=== PATIENT | female | born 1980 | race Caucasian/White ===

== ENCOUNTER → 2016-09-05 | Outpatient (REF) | payer MEDICAID, OTHER | LOC: M SFHCPLAZ 16:01 | PROVIDERS: ATTEND Family Medicine | DX: N39.3 Stress incontinence (female) (male) (principal) ==

== ENCOUNTER → 2016-10-04 | Outpatient (REF) | payer MEDICAID | LOC: M SFHCPLAZ 08:00 | PROVIDERS: ATTEND Family Medicine | DX: Z01.419 Encounter for gynecological examination (general) (routine) without abnormal findings (principal); Z11.51 Encounter for screening for human papillomavirus (HPV) ==

== ENCOUNTER → 2017-03-14 | Outpatient (CLI) | payer MEDICAID, OTHER ==
--- NOTE | 2017-03-14 11:35 | REP ---
Right knee series: Five views. History: Acute pain right knee. Findings: Five views of the right knee demonstrate normal bones, joints, and soft tissues. No fracture or subluxation is seen. Impression: Negative views of the right knee. Signed by Obed Langston MD 03/14/2017 02:44 P
== END ==
LOC: M LRY 10:50
PROVIDERS: ATTEND Nurse Practitioner Family
DX: M25.561 Pain in right knee (principal)

== ENCOUNTER → 2017-05-10 | Outpatient (CLI) | payer OTHER, MEDICAID ==
--- NOTE | 2017-05-27 00:39 | ECWPNPC ---
PATIENT NAME: MIKE LAI : 1980 GENDER: FEMALE VISIT DATE: 05/10/2017 DISCHARGE DATE: 05/10/17 1027 VISIT LOCKED DATE TIME: PHYSICIAN: CATHY QUIROGA RESOURCE: CATHY QUIROGA REASON FOR APPOINTMENT 1. RAUL KNEE PAIN HISTORY OF PRESENT ILLNESS FALL RISK SCREENING: SCREENING :NO FALLS IN THE PAST YEAR 37 YEAR OLD FEMALE PATIENT WITH BILATERAL KNEE PAIN AND LOW BACK PAIN. PATIENT DESCRIBES THE PAIN ACHING AND THROBBING WITH A PAIN SCORE OF 6/10. PATIENT REPORTS THE PAIN STARTED IN 1995 WITH NO TRAUMA AND STATES THAT OVER THE YEARS IT HAS GOTTEN PROGRESSIVELY WORSE. PATIENT HAS TRIED PHYSICAL THERAPY AND REPORTS IT ONLY AIDING IN RELIEF FOR A SHORT PERIOD OF TIME. PATIENT STATES THAT WALKING INCREASES THE PAIN THE MOST IN THE KNEES. PATIENT STATES THAT SHE HAS A LOT OF PAIN AT NIGHT AND MAKES IT DIFFICULT FOR HER TO SLEEP DUE TO THIS PAIN. PATIENT HAS SEEN THE ORTHOPEDIC GROUP HERE WHO STATED THAT SHE IS NOT A CANDIDATE FOR SURGERY. PATIENT HAS ALSO SEEN A PAINTER AND DECORATOR APPRENTICE WHO THEN SENT HER TO A GASTROINTESTINAL DOCTOR. PATIENT HAS RECEIVED INJECTIONS IN THE KNEES BEFORE BUT ONLY HAD ROUGHLY 2 WEEKS OF RELIEF. PATIENT DENIES UNEXPLAINABLE WEIGHT LOSS, FEVER, CHILLS, NEW CHANGES ON HER URINARY OR BOWEL CONTROL. 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 2 SON(S) - HEALTHY. SOCIAL HISTORY GENERAL: TOBACCO USE ARE YOU A:FORMER SMOKER HOW LONG HAS IT BEEN SINCE YOU LAST SMOKED?1-5 YEARS SMOKING CESSATION INFORMATION GIVEN05/10/2017 LUNG CANCER SCREENING SMOKING STATUS:FORMER SMOKER BMI CARE GOAL FOLLOW-UP ABOVE NORMAL BMI FOLLOW-UPDIETARY NEEDS EDUCATION ALCOHOL SCREENING POINTS1 INTERPRETATIONNEGATIVE RECREATIONAL DRUG USE DRUG USE?NO PATIENT DENIES ABUSE OR MISSUSED OF ANY MEDICATION. PATIENT DENIES USE OF ANY ILLEGAL SUBSTANCE INCLUDING MARIJUANA OR COCAINE. CAFFEINE CAFFEINE USE?YES HOW OFTEN AND HOW MUCH? 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 MARITAL STATUS: SINGLE. TAOIST [id number] NONE LANGUAGE LANGUAGES SPOKEN:SAMOAN EDUCATION LEVEL OF EDUCATION:NOT FINISHED COLLEGE LEARNING BARRIERS / SPECIAL NEEDS CHANGE FROM LAST VISIT?NO BARRIERS TO LEARNING?NO HEARING IMPAIRED?NO VISION IMPAIRED?YES :CORRECTIVE LENSES COGNITIVELY IMPAIRED?NO READINESS TO LEARN?YES LEARNING PREFERENCES?NO LEARNING CAPABILITIES PRESENT?YES EMOTIONAL BARRIERS?NO SPECIAL DEVICES?NO AIRLINE MANAGER NEEDED?NO PAIN CLINIC PFS, CLERGY, PUBLIC HEALTH REFERRALS HAS THE PATIENT BEEN EDUCATED REGARDING HIS/HER PLAN OF CARE?YES HAS THE PATIENT BEEN EDUCATED REGARDING PAIN, THE RISK FOR PAIN, THE IMPORTANCE OF EFFECTIVE PAIN MANAGEMENT, AND THE PAIN ASSESSMENT PROCESS?YES ADVANCE DIRECTIVES HEALTH CARE PROXY?NO DO YOU HAVE A DNR?NO LIVING WILL?NO POWER OF GOVERNOR ASSEMBLER HYDRAULIC?NO HOSPITALIZATION/MAJOR DIAGNOSTIC PROCEDURE RELATED TO SURGERY REVIEW OF SYSTEMS REVIEWED BY: PROVIDER: CATHY QUIROGA MD . CONSTITUTIONAL: ANY CHANGE IN YOUR MEDICAL CONDITION? YES, PT REPORTS SHE RECENTLY SAW A PAINTER AND DECORATOR APPRENTICE IN [place], DR HUNT CLAU BY ORTHO DR ONIEL RODRIGUEZ BECAUSE HE COULDN'T FIND ANYTHING SURGICAL. PT HAD BLOODWORK DONE AND TESTED POSITIVE FOR HEP C. A MORE EXTENSIVE WORKUP WAS DONE SHOWING NEGATIVE HEP C. PT WAS REFERED TO GASTRO DR. MARICEL ALVAREZ, APPT SCHEDULED FOR 06/07/17 . CHILLS NO . FEVER NO . INFECTION: DO YOU HAVE NEW INFECTIONS? NO . DO YOU HAVE HISTORY OF MRSA? NO . MUSCULOSKELETAL: ANY NEW PATTERNS OF PAIN OR NUMBNESS? YES, BILAT KNEE PAINRADIATING DOWN BOTH LEGS. LATELY PT REPORTS GENERALIZED BACK PAIN WHICH STARTED 2 WEEKS AGO . SYTEMIC LUPUS NO . GASTROENTEROLOGY: ANY NEW CHANGE IN BOWEL CONTROL? NO . BARRETTS ESOPHAGUS NO . CIRRHOSIS NO . HEPATITIS NO . LIVER FAILURE NO . ACID REFLUX NO . UNEXPLAINED WEIGHT LOSS NO . GENITOURINARY: ANY NEW CHANGE IN BLADDER CONTROL? NO . IS THERE A CHANCE YOU COULD BE ? NO . HEMATOLOGY/LYMPH: DO YOU TAKE ANY BLOOD THINNERS? (FOR EXAMPLE- COUMADIN, PLAVIX, AGGRENOX, PLATEL, PRADAXA, OR XARELTO) NO . WHEN WAS YOUR LAST DOSE? DATE: TIME: . LOW PLATELET COUNT NO . SICKLE CELL DISEASE NO . VON WILLIEBRANDS NO . FACTOR V LEIDEN NO . THALLASEMIA NO . ANEMIA NO . EASY BRUISING NO . NEUROLOGY: HAVE YOU FALLEN IN THE PAST 6 MONTHS? YES, PT STATES SHE FELL 04/01/17 FROM KNEE WEAKNESS. PT WENT TO [facility] AND WORE A LEG BRACE X1 WEEK WHICH DIDN'T HELP PAIN, BUT DID HELP IMMOBOLIZE LEG . ANY NEW EXTREMITY NUMBNESS OR WEAKNESS? NO . HEAD INJURY NO . DEMENTIA NO . CEREBRAL PALSY NO . MULTIPLE SCLEROSIS NO . DIZZINESS NO . HEADACHE NO . STROKES NO . VERTIGO NO . CARDIOLOGY: DO YOU HAVE A PACEMAKER OR DEFIBRILLATOR? NO . ANGINA NO . HEART ATTACK NO . HEART SURGERY NO . CONGESTIVE HEART FAILURE/FLUID OVERLOAD NO . CHEST PAIN NO . HIGH BLOOD PRESSURE NO . IRREGULAR HEART BEAT NO . RESPIRATORY: HAVE YOU BEEN SICK IN THE PAST WEEK? NO . FEVER NO . FLU LIKE SYMPTOMS? NO . CPAP NO . BYPAP NO . ASTHMA NO . EMPHYSEMA NO . CHRONIC LUNG DISEASES NO . SHORTNESS OF BREATH ON EXERTION NO . COUGH NO . SNORING NO . INTEGUMENTARY: DO YOU HAVE ANY RASHES OR OPEN SORES? NO . ALLERGIC/IMMUNO: ARE YOU ALLERGIC TO SHELLFISH OR IV DYE? NO . ANY NEW ALLERGIES? NO . PSYCHIATRIC: DO YOU HAVE THOUGHTS OF HURTING YOURSELF OR SOMEONE ELSE? NO . ARE YOU ABUSED, NEGLECTED, OR IN AN UNSAFE ENVIRONMENT? NO . ENDOCRINOLOGY: ARE YOU DIABETIC? NO . THYROID DISORDER NO . OTHER: DO YOU NEED ANY PRESCRIPTIONS? NO . IF YES, PLEASE LIST: ____ . ANY NEW PROBLEMS WITH YOUR MEDICATIONS? NO . WHEN DID YOU LAST EAT? ____ . WHEN DID YOU LAST DRINK? ____ . WHAT DID YOU LAST DRINK? ____ . NAME OF PERSON DRIVING YOU HOME? ____ . DO YOU HAVE ANY OTHER QUESTIONS OR CONCERNS NO . VITAL SIGNS WT 193.2 LBS, HT 67 IN, BMI 30.26 INDEX, BP 149/70 MM HG, HR 81 /MIN, RR 18 /MIN, TEMP 96.9 F, OXYGEN SAT % 97%, NA INITIALS SC 09:28, REVIEWED BY: EM. EXAMINATION : PATIENT IS ALERT O X 3 AND COOPERATIVE. ANTALGIC GAIT. WIDE ANGLED GAIT - HAD PLANTAR'S WART REMOVED RECENTLY. TENDERNESS IN BOTH KNEES. LEFT LEG IS WEAKER THEN THE RIGHT AT EXTENSION AND FLEXION. TENDERNESS IN THE LOWER BACK AND PARASPINAL MUSCLE GROUP. BANDS OF TISSUE, RESTRICTION OF MOVEMENT, AND PRESENCE OF TRIGGER POINTS IN THE LOWER BACK AREA. ASSESSMENTS PAIN IN RIGHT KNEE - M25.561 (PRIMARY) PAIN IN LEFT KNEE - M25.562 OTHER CHRONIC PAIN - G89.29 TREATMENT PAIN IN RIGHT KNEE START CELEBREX CAPSULE, 100 MG, 1 CAPSULE WITH FOOD, ORALLY NEEDED FOR PAIN, TWICE A DAY MDD2, 30 DAY(S), 60, REFILLS 1 START TIZANIDINE HCL TABLET, 2 MG, 1 TABLET NEEDED, ORALLY, BEFORE BEDTIME MAY REPEAT IN 5 HRS MDD2, 30 DAY(S), 45, REFILLS 1 NOTES: WE DISCUSSED SEVERAL ISSUES WITH MRS. LAI'S PAIN MANAGEMENT CASE. AT THIS TIME THE PATIENT WILL START USING CELEBREX FOR THE INFLAMMATION AND TIZANIDINE FOR THE MUSCLE SPASMS SHE IS HAVING AT NIGHT. PATIENT WAS ADVISED TO START ONE MEDICATION AT A TIME TO MAKE SURE IT IS GIVING THE PATIENT RELIEF. PATIENT WAS ADVISED TO THE STOP THE MEDICATION IS SHE HAS ANY ADVERSE SIDE EFFECTS AT THIS TIME. WE DISCUSSED SEVERAL INJECTIONS THAT MAY AID THE PAIN IN PAIN RELIEF AND AT THIS TIME THE PATIENT DOES NOT WANT TO MOVE FORWARD WITH INTERVENTIONS AND WOULD PREFER TO CONTINUE TO USE MEDICATIONS. PATIENT WILL RETURN TO THE CLINIC IN 3 WEEKS. INSTRUCTIONS WERE GIVEN, QUESTIONS WERE ANSWERED, PATIENT REPORTS UNDERSTANDING AND AGREES WITH THE PLAN. I, AMAYA COYNE, DOCUMENTED THE ABOVE INFORMATION ACTING A SCRIBE FOR DR. QUIROGA. I HAVE REVIEWED THE ABOVE DOCUMENT, WRITTEN BY AMAYA HARPER AND I VERIFY THAT IT IS ACCURATE. DEAR DR. RODRIGUEZ:THANK YOU FOR YOUR KIND REFERRAL OF MRS. LAI. IF YOU WANT TO DISCUSS HER/HIS CASE WITH ME PLEASE CALL ME AT THE PAIN CENTER AT [phone]. SINCERELY,CATHY QUIROGA, [facility]. PROCEDURE CODES G8427 DOC MEDS VERIFIED W/PT OR RE G8730 PAIN ASSESS POS TOOL F/U PLAN DOC FA211 ESTABILISHED PATIENT [facility] FACILITY CHARGE DISPOSITION & COMMUNICATION FOLLOW UP 4 WEEKS ELECTRONICALLY SIGNED BY CATHY QUIROGA MD ON 05/26/2017 AT 08:44 PM EST DISCLAIMER : THIS IS A VISIT SUMMARY EXTRACTED FROM THE [employer] CHART. IT IS NOT A COPY OF THE [employer] PROGRESS NOTE. DOROTHEA
== END ==
LOC: M PAIN 09:30
PROVIDERS: ATTEND Anesthesiology
DX: G89.29 Other chronic pain (principal); M25.561 Pain in right knee; M25.562 Pain in left knee; M54.5 Low back pain; F41.9 Anxiety disorder, unspecified; G43.909 Migraine, unspecified, not intractable, without status migrainosus; Z91.09 Other allergy status, other than to drugs and biological substances; Z79.899 Other long term (current) drug therapy; Z87.891 Personal history of nicotine dependence

== ENCOUNTER → 2017-06-05 | Outpatient (CLI) | payer OTHER ==
--- NOTE | 2017-06-06 00:15 | ECWPNPC ---
PATIENT NAME: MIKE LAI : 1980 GENDER: FEMALE VISIT DATE: 06/05/2017 DISCHARGE DATE: 06/05/17 1601 VISIT LOCKED DATE TIME: PHYSICIAN: SABIHA BERNARDO RESOURCE: SABIHA BERNARDO REASON FOR APPOINTMENT 1. KNEE PAIN HISTORY OF PRESENT ILLNESS HISTORY OF PRESENT ILLNESS: HERE FOR F/U OF CHRONIC BILATERAL KNEE PAIN.THIS IS HER FIRST VISIT AFTER INITIAL CONSULT.WAS STARTED ON CELEBREX 100MG BID AND PATIENT DOESNT NOTICE A DIFFERENCE.INITIALLY SOME IMPROVEMENT WITH TIZANIDINE 2MG AT HS.BUT NOW IT ISNT.FOLLOWING WITH RHEUMATOLOGY.DISCUSSED MEDICATION AND TREATMENT OPTIONS.RATING PAIN VAS 4/10. PAIN THE PATIENT DESCRIBES THE PAIN... 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, M22.2X2 MEDICATION LIST REVIEWED AND RECONCILED WITH THE PATIENT PAST MEDICAL HISTORY TENDONITIS- RAUL KNEE MIGRAINES URINARY STRESS INCONTINENCE ANXIETY HISTORY OF TOBACCO USE CHRONIC RIGHT KNEE PAIN DYSPEPSIA ALLERGIES GOLD: NAUSEA/VOMITING: ALLERGY BLEACH: NAUSEA/VOMITING: ALLERGY SURGICAL HISTORY LEFT BUTTOCK ABSCESS REMOVAL RIGHT THIGH ABSCESS REMOVAL BTL 2008 SOCIAL HISTORY GENERAL: TOBACCO USE ARE YOU A:FORMER SMOKER HOW LONG HAS IT BEEN SINCE YOU LAST SMOKED?1-5 YEARS SMOKING CESSATION INFORMATION GIVEN05/10/2017 BMI CARE GOAL FOLLOW-UP ABOVE NORMAL BMI FOLLOW-UPDIETARY NEEDS EDUCATION ALCOHOL SCREENING DID YOU HAVE A DRINK CONTAINING ALCOHOL IN THE PAST YEAR?YES POINTS1 INTERPRETATIONNEGATIVE HOW OFTEN DID YOU HAVE A DRINK CONTAINING ALCOHOL IN THE PAST YEAR?MONTHLY OR LESS (1 POINT) HOW MANY DRINKS DID YOU HAVE ON A TYPICAL DAY WHEN YOU WERE DRINKING IN THE PAST YEAR?1 OR 2 (0 POINTS) RECREATIONAL DRUG USE DRUG USE?NO PATIENT DENIES ABUSE OR MISSUSED OF ANY MEDICATION. PATIENT DENIES USE OF ANY ILLEGAL SUBSTANCE INCLUDING MARIJUANA OR COCAINE. CAFFEINE CAFFEINE USE?YES HOW OFTEN AND HOW MUCH? 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 MARITAL STATUS: SINGLE. ROMAN CATHOLIC [id number] NONE LANGUAGE LANGUAGES SPOKEN:GERMAN EDUCATION LEVEL OF EDUCATION:NOT FINISHED COLLEGE LEARNING BARRIERS / SPECIAL NEEDS CHANGE FROM LAST VISIT?NO BARRIERS TO LEARNING?NO HEARING IMPAIRED?NO VISION IMPAIRED?YES :CORRECTIVE LENSES COGNITIVELY IMPAIRED?NO READINESS TO LEARN?YES LEARNING PREFERENCES?NO LEARNING CAPABILITIES PRESENT?YES EMOTIONAL BARRIERS?NO SPECIAL DEVICES?NO LOGISTICS CLERK NEEDED?NO PAIN CLINIC PFS, CLERGY, PUBLIC HEALTH REFERRALS HAS THE PATIENT BEEN EDUCATED REGARDING HIS/HER PLAN OF CARE?YES HAS THE PATIENT BEEN EDUCATED REGARDING PAIN, THE RISK FOR PAIN, THE IMPORTANCE OF EFFECTIVE PAIN MANAGEMENT, AND THE PAIN ASSESSMENT PROCESS?YES HOSPITALIZATION/MAJOR DIAGNOSTIC PROCEDURE RELATED TO SURGERY REVIEW OF SYSTEMS REVIEWED BY: PROVIDER: SABIHA COLLADO . CONSTITUTIONAL: ANY CHANGE IN YOUR MEDICAL CONDITION? NO . CHILLS NO . FEVER NO . INFECTION: DO YOU HAVE NEW INFECTIONS? NO . DO YOU HAVE HISTORY OF MRSA? NO . MUSCULOSKELETAL: ANY NEW PATTERNS OF PAIN OR NUMBNESS? YES, BILAT LEG WEAKNESS AND HAND PAIN . GASTROENTEROLOGY: ANY NEW CHANGE IN BOWEL CONTROL? NO . GENITOURINARY: ANY NEW CHANGE IN BLADDER CONTROL? NO . IS THERE A CHANCE YOU COULD BE ? NO . HEMATOLOGY/LYMPH: DO YOU TAKE ANY BLOOD THINNERS? (FOR EXAMPLE- COUMADIN, PLAVIX, AGGRENOX, PLATEL, PRADAXA, OR XARELTO) NO . WHEN WAS YOUR LAST DOSE? DATE: TIME: . NEUROLOGY: HAVE YOU FALLEN IN THE PAST 6 MONTHS? NO . ANY NEW EXTREMITY NUMBNESS OR WEAKNESS? NO . CARDIOLOGY: DO YOU HAVE A PACEMAKER OR DEFIBRILLATOR? NO . RESPIRATORY: HAVE YOU BEEN SICK IN THE PAST WEEK? NO . FEVER NO . FLU LIKE SYMPTOMS? NO . COUGH NO . INTEGUMENTARY: DO YOU HAVE ANY RASHES OR OPEN SORES? YES . ALLERGIC/IMMUNO: ARE YOU ALLERGIC TO SHELLFISH OR IV DYE? NO . ANY NEW ALLERGIES? NO . PSYCHIATRIC: DO YOU HAVE THOUGHTS OF HURTING YOURSELF OR SOMEONE ELSE? NO . ARE YOU ABUSED, NEGLECTED, OR IN AN UNSAFE ENVIRONMENT? NO . ENDOCRINOLOGY: ARE YOU DIABETIC? NO . OTHER: DO YOU NEED ANY PRESCRIPTIONS? NO . IF YES, PLEASE LIST: ____ . ANY NEW PROBLEMS WITH YOUR MEDICATIONS? NO . WHEN DID YOU LAST EAT? ____ . WHEN DID YOU LAST DRINK? ____ . WHAT DID YOU LAST DRINK? ____ . NAME OF PERSON DRIVING YOU HOME? ____ . DO YOU HAVE ANY OTHER QUESTIONS OR CONCERNS NO . VITAL SIGNS WT 192.4 LBS, HT 67 IN, BMI 30.13 INDEX, BP 137/87 MM HG, HR 79 /MIN, RR 18 /MIN, TEMP 97.2 F, OXYGEN SAT % 98%, NA INITIALS SC 14:33, REVIEWED BY: EM. EXAMINATION GENERAL EXAMINATION: GENERAL APPEARANCE:COMFORTABLE,FRUSTRATED. PSYCHAFFECT NORMAL. LUNGS:LUNG R[place] ARE CLEAR TO AUSCULTATION BILATERALLY. GOOD MOVEMENT OF AIR. HEART:S1, S2 IN A REGULAR RATE AND RHYTHM. NO SIGNIFICANT MURMURS, RUBS OR GALLOPS NOTED. MUSCULOSKELETAL:REPORTS EXTREME BILATERAL KNEE PAIN WITH MST. JOINTS:NO SWELLING OR PAIN WITH PALPATION OF BILATERAL KNEES. ASSESSMENTS PAIN IN RIGHT KNEE - M25.561 (PRIMARY) PAIN IN LEFT KNEE - M25.562 OTHER CHRONIC PAIN - G89.29 TREATMENT PAIN IN RIGHT KNEE STOP CELEBREX CAPSULE, 100 MG, 1 CAPSULE WITH FOOD, ORALLY NEEDED FOR PAIN, TWICE A DAY MDD2 STOP TIZANIDINE HCL TABLET, 2 MG, 1 TABLET NEEDED, ORALLY, BEFORE BEDTIME MAY REPEAT IN 5 HRS MDD2 START TRAMADOL HCL TABLET, 50 MG, 1-2, ORALLY, EVERY 8H PRN PAIN MDD3, 30 DAY(S), 45, REFILLS 1 PROCEDURE CODES FA211 ESTABILISHED PATIENT [facility] CHARGE DISPOSITION & COMMUNICATION FOLLOW UP 6 WEEKS ELECTRONICALLY SIGNED BY TOBIAS ENNIS ON 06/05/2017 AT 03:58 PM EST DISCLAIMER : THIS IS A VISIT SUMMARY EXTRACTED FROM THE [employer] CHART. IT IS NOT A COPY OF THE [employer] PROGRESS NOTE. MTDD
== END ==
LOC: M PAIN 14:30
PROVIDERS: ATTEND Nurse Practitioner Family
DX: G89.29 Other chronic pain (principal); M25.561 Pain in right knee; M25.562 Pain in left knee; G43.909 Migraine, unspecified, not intractable, without status migrainosus; F41.9 Anxiety disorder, unspecified; L23.0 Allergic contact dermatitis due to metals; Z91.09 Other allergy status, other than to drugs and biological substances; Z79.899 Other long term (current) drug therapy; Z87.891 Personal history of nicotine dependence

== ENCOUNTER → 2017-06-13 | Outpatient (CLI) | payer OTHER ==
--- NOTE | 2017-06-13 09:14 | REP ---
ABDOMINAL ULTRASOUND COMPLETE WITH HEPATIC DOPPLER: 06/13/2017 CLINICAL HISTORY: Abnormal LFTs. Possible fatty liver. Evaluate for portal hypertension. Sonographic evaluation of the abdomen without prior studies shows the liver homogeneous in its echotexture. There is no focal hepatic mass, intrahepatic biliary dilatation nor perihepatic ascites. Gallbladder shows normal distension without stone, sludge, mass or wall thickening. No pericholecystic fluid. Common duct is 4.6 mm and unremarkable. Pancreas intact without ductal dilatation, mass or adjacent fluid collection. The spleen measures 13.7 x 12.6 x 6.7. It is moderately enlarged. The splenic index is 1157. Less than 480 is normal. Left kidney is 10.2 x 3.6 x 5.4 cm. It is rotated anteriorly. The right kidney is 10.9 x 5.7 x 4.4 cm. Neither kidney shows hydronephrosis, mass or cyst. The aorta is without aneurysm. There is no ascites. IMPRESSION: 1. There is some moderate splenomegaly with a splenic index of 1157 and the normal range less than 480. No focal lesion. 2. There is no hepatomegaly, focal hepatic mass or any definite ultrasound evidence for fatty infiltration. There is no biliary dilatation. Gallbladder, pancreas and common duct normal. HEPATIC DOPPLER: Main portal vein has a diameter 13.3 mm. Common duct is 4.6 mm. No liver mass, gallstones or ascites. Flow velocities are as follows: Splenic vein near the hilum 17.5 cm/s. Splenic vein near the confluence 28.2 cm/s SMV 34.4 cm/s Portal vein 23.9 m/s Intrahepatic portal veins 14.1 cm/s, 13.2 cm/s, 11.6 cm/s. All flow is in the appropriate direction into the liver. The main portal vein is mildly pulsatile. IMPRESSION: 1. There is evidence for splenomegaly but all portal venous flow is in the appropriate direction. Some pulsatile flow in the main portal vein, which has a diameter 13.3 mm. 2. The hepatic artery also was evaluated with a peak velocity 55 cm/s and resistive index of 0.59. Signed by Eusebio Davila MD 06/13/2017 08:49 P
== END ==
LOC: M RAD 06:39
PROVIDERS: ATTEND Internal Medicine Gastroenterology
DX: R79.89 Other specified abnormal findings of blood chemistry (principal); R16.1 Splenomegaly, not elsewhere classified

== ENCOUNTER 2017-07-27 21:33 | Emergency (ER) | payer OTHER ==
[2017-07-28] MEDS: KETOROLAC 60 MG/2 ML VIAL (J1885) IM (00:06)
== END 2017-07-28 00:44 | disposition home or self-care (01) ==
LOC: M ED 07-28 00:44
DX: M25.561 Pain in right knee (principal); Z98.890 Other specified postprocedural states
CPT/HCPCS: J1885

== ENCOUNTER → 2017-08-15 | Outpatient (CLI) | payer OTHER | LOC: M PAIN 14:15 | DX: M25.561 Pain in right knee (principal); M25.562 Pain in left knee; G89.29 Other chronic pain; G43.909 Migraine, unspecified, not intractable, without status migrainosus; F41.9 Anxiety disorder, unspecified; Z79.899 Other long term (current) drug therapy; Z91.048 Other nonmedicinal substance allergy status; Z87.891 Personal history of nicotine dependence | CPT/HCPCS: G0463 ==

== ENCOUNTER → 2017-08-26 | Outpatient (CLI) | payer OTHER | LOC: M PAIN 11:45 | DX: G89.29 Other chronic pain (principal); M25.561 Pain in right knee; M25.562 Pain in left knee; F41.9 Anxiety disorder, unspecified; M76.51 Patellar tendinitis, right knee; M76.52 Patellar tendinitis, left knee; N39.3 Stress incontinence (female) (male); R10.13 Epigastric pain; Z91.048 Other nonmedicinal substance allergy status; Z79.899 Other long term (current) drug therapy | CPT/HCPCS: G0463 ==

== ENCOUNTER → 2017-10-14 | Outpatient (CLI) | payer OTHER | END | disposition home or self-care (01) | LOC: M PAIN 11:30 | DX: G89.29 Other chronic pain (principal); M25.561 Pain in right knee; M25.562 Pain in left knee; F41.9 Anxiety disorder, unspecified; Z79.891 Long term (current) use of opiate analgesic; Z91.048 Other nonmedicinal substance allergy status; Z87.891 Personal history of nicotine dependence | CPT/HCPCS: G0463 ==

== ENCOUNTER → 2017-11-29 | Outpatient (CLI) | payer OTHER | LOC: M LAB 10:20 | DX: S99.921A Unspecified injury of right foot, initial encounter (principal); X58.XXXA Exposure to other specified factors, initial encounter; Y92.89 Other specified places as the place of occurrence of the external cause; Y93.9 Activity, unspecified; Y99.9 Unspecified external cause status | CPT/HCPCS: 73630 ==

== ENCOUNTER → 2017-12-16 | Outpatient (CLI) | payer OTHER | LOC: M PAIN 10:15 | DX: G89.29 Other chronic pain (principal); M25.561 Pain in right knee; M25.562 Pain in left knee; G43.909 Migraine, unspecified, not intractable, without status migrainosus; F41.9 Anxiety disorder, unspecified; K76.0 Fatty (change of) liver, not elsewhere classified; R10.13 Epigastric pain; N39.3 Stress incontinence (female) (male); Z87.891 Personal history of nicotine dependence; Z79.891 Long term (current) use of opiate analgesic; Z79.899 Other long term (current) drug therapy; Z91.048 Other nonmedicinal substance allergy status | CPT/HCPCS: G0463 ==

== ENCOUNTER → 2018-02-17 | Outpatient (CLI) | payer OTHER | LOC: M PAIN 14:45 | DX: G89.29 Other chronic pain (principal); M25.561 Pain in right knee; M25.562 Pain in left knee; G43.909 Migraine, unspecified, not intractable, without status migrainosus; F41.9 Anxiety disorder, unspecified; N39.3 Stress incontinence (female) (male); R10.13 Epigastric pain; K75.81 Nonalcoholic steatohepatitis (NASH); Z79.891 Long term (current) use of opiate analgesic; Z79.899 Other long term (current) drug therapy; Z87.891 Personal history of nicotine dependence; Z91.048 Other nonmedicinal substance allergy status | CPT/HCPCS: G0463 ==

== ENCOUNTER → 2018-02-18 | Outpatient (REF) | payer OTHER ==
[2018-02-18 12:11] LABS: BASO % 0.4 % (0.0-1.0); EOS # 0.3 10^3/uL (0.0-0.50); EOS % 4.2 % (0.0-3.0); HEMATOCRIT 41.5 % (36.0-47.0); HEMOGLOBIN 13.5 g/dl (12.0-15.5); IMMATURE GRANULOCYTE % 0.3 % (0-3.0); LYMPH # 1.6 10^3/uL (1.5-4.5); LYMPH % 24.6 % (24.0-44.0); MEAN CORPUSCULAR HGB CONC 32.5 g/dl (32.0-36.5); MONO # 0.4 10^3/uL (0.0-0.8); MONO % 6.4 % (0.0-5.0); NEUTROPHILS # 4.3 10^3/uL (1.8-7.7); NEUTROPHILS % 64.1 % (36.0-66.0); PLATELET COUNT, AUTOMATED 255 10^3/uL (150-450); RED CELL DISTRIBUTION WIDTH 13.3 % (11.5-14.5); WHITE BLOOD COUNT 6.7 10^3/uL (4.0-10.0)
[2018-02-18 12:21] LABS: ALBUMIN/GLOBULIN RATIO 1.03 (1.00-1.93); ALKALINE PHOSPHATASE 82 U/L (45-117); ALT/SGPT 74 U/L (12-78); ANION GAP 7 MEQ/L (8-16); AST/SGOT 39 U/L (7-37); BILIRUBIN,TOTAL 0.4 MG/DL (0.2-1.0); BLOOD UREA NITROGEN 10 MG/DL (7-18); CALCIUM LEVEL 9.3 MG/DL (8.5-10.1); CARBON DIOXIDE LEVEL 26 MEQ/L (21-32); CHLORIDE LEVEL 106 MEQ/L (98-107); CREATININE FOR GFR 0.82 MG/DL (0.55-1.30); GLOMERULAR FILTRATION RATE > 60.0 (>60); GLUCOSE, FASTING 81 MG/DL (70-100); POTASSIUM SERUM 4.4 MEQ/L (3.5-5.1); RHEUMATOID FACTOR QUANT 13.1 IU/ML (<15.0); SODIUM LEVEL 139 MEQ/L (136-145); TOTAL PROTEIN 7.9 GM/DL (6.4-8.2)
[2018-02-18 12:36] LABS: ERYTHROCYTE SEDIMENTATION RATE 13 mm/hr (0-20)
[2018-02-18 16:43] LABS: TOTAL 25(OH) VITAMIN D 21.9 NG/ML (30.0-100.0)
[2018-02-19 14:15] LABS: ANTI DOUBLE STRAND-DNA AB <1 IU/mL (0-9); ANTINUCLEAR ANTIBODIES DIRECT Positive (Negative); RNP ANTIBODIES 1.1 AI (0.0-0.9); SJOGREN'S ANTI SS-A >8.0 AI (0.0-0.9); SJOGREN'S ANTI SS-B <0.2 AI (0.0-0.9); SMITH ANTIBODIES <0.2 AI (0.0-0.9)
== END ==
LOC: M LABNEURO 08:41
DX: R51 Headache (principal)
CPT/HCPCS: 84443

== ENCOUNTER → 2018-03-31 | Outpatient (CLI) | payer OTHER | LOC: M PAIN 15:00 | DX: G89.29 Other chronic pain (principal); M25.561 Pain in right knee; M25.562 Pain in left knee; G43.909 Migraine, unspecified, not intractable, without status migrainosus; F41.9 Anxiety disorder, unspecified; K76.0 Fatty (change of) liver, not elsewhere classified; R10.13 Epigastric pain; Z79.899 Other long term (current) drug therapy; Z87.891 Personal history of nicotine dependence; Z91.048 Other nonmedicinal substance allergy status | CPT/HCPCS: G0463 ==

== ENCOUNTER → 2018-04-01 | Outpatient (CLI) | payer OTHER | LOC: M RAD 10:12 | DX: M51.36 Other intervertebral disc degeneration, lumbar region (principal); M51.34 Other intervertebral disc degeneration, thoracic region | CPT/HCPCS: 72072 ==

== ENCOUNTER → 2018-05-22 | Outpatient (CLI) | payer OTHER | LOC: M PAIN 08:30 | DX: M19.90 Unspecified osteoarthritis, unspecified site (principal); M25.561 Pain in right knee; M25.562 Pain in left knee; G43.909 Migraine, unspecified, not intractable, without status migrainosus; F41.9 Anxiety disorder, unspecified; Z79.891 Long term (current) use of opiate analgesic; Z91.09 Other allergy status, other than to drugs and biological substances; Z87.891 Personal history of nicotine dependence | CPT/HCPCS: G0463 ==

== ENCOUNTER → 2018-05-27 | Outpatient (CLI) | payer OTHER | LOC: M PAIN 14:30 | DX: M47.817 Spondylosis without myelopathy or radiculopathy, lumbosacral region (principal); G89.29 Other chronic pain; G43.909 Migraine, unspecified, not intractable, without status migrainosus; F41.9 Anxiety disorder, unspecified; Z79.899 Other long term (current) drug therapy; Z91.09 Other allergy status, other than to drugs and biological substances; Z91.048 Other nonmedicinal substance allergy status; Z87.891 Personal history of nicotine dependence | CPT/HCPCS: G0463 ==

== ENCOUNTER → 2018-07-31 | Outpatient (CLI) | payer OTHER ==
[~2018-07-31] MED LIST: EXCETAB81 PO; NORC1TAB4 PO
--- NOTE | 2018-08-15 01:45 | ECWPNPC ---
PATIENT NAME: MIKE LAI : 1980 GENDER: FEMALE VISIT DATE: 07/31/2018 DISCHARGE DATE: 07/31/18 1546 VISIT LOCKED DATE TIME: PHYSICIAN: SABIHA BERNARDO RESOURCE: SABIHA BERNARDO REASON FOR APPOINTMENT 1. KNEES/BACK HISTORY OF PRESENT ILLNESS HISTORY OF PRESENT ILLNESS: MIKE IS HERE TODAY FOR F/U FOR CHRONIC LOW BACK PAIN AND BILATERAL KNEE PAIN.HAS XRAYS DONE OF LUMBAR SPINE.DESCRIBES INTERMITTENT LUMBAR RADICULAR SYMPTOMS IN LEGS R>L.TRIALED ON NAPROXEN 500MG BID OVER THE PAST 2 MONTHS WITHOUT IMPROVEMENT.FINISHED PT FOR LOW BACK A FEW WEEKS AGO AND REPORTING NO IMPROVEMENT.RATING LOW BACK PAIN/KNEE PAIN 3-8/10 VAS. PAIN THE PATIENT DESCRIBES THE PAIN... THE PATIENT DESCRIBES THE PAIN... FALL RISK SCREENING: SCREENING :NO FALLS IN THE PAST YEAR CURRENT MEDICATIONS TAKING EXCEDRIN MIGRAINE 250-250-65 MG TABLET 2 TABLETS NEEDED ORALLY EVERY 6 HRS TAKING NAPROXEN 500 MG TABLET 1 TABLET WITH FOOD OR MILK NEEDED ORALLY EVERY 12 HRS TAKING NORCO 7.5-325 MG TABLET 1 TABLET NEEDED ORALLY Q8H PRN MDD3 TAKING ZONISAMIDE 25 MG CAPSULE 2 CAPSULES ORALLY TWICE A DAY MEDICATION LIST REVIEWED AND RECONCILED WITH THE PATIENT PAST MEDICAL HISTORY TENDONITIS- RAUL KNEE MIGRAINES URINARY STRESS INCONTINENCE ANXIETY HISTORY OF TOBACCO USE CHRONIC RIGHT KNEE PAIN DYSPEPSIA GRANADOS ALLERGIES GOLD: NAUSEA/VOMITING: ALLERGY BLEACH: NAUSEA/VOMITING: ALLERGY SURGICAL HISTORY LEFT BUTTOCK ABSCESS REMOVAL RIGHT THIGH ABSCESS REMOVAL BTL 2008 ALL TEETH REMOVED FAMILY HISTORY FATHER: 58 YRS, DIAGNOSED WITH DIABETES, HYPERTENSION, HEART DISEASE MOTHER: ALIVE PATERNAL GRAND MOTHER: LUNG CANCER 1 BROTHER(S) - HEALTHY. 2 SON(S) - HEALTHY. SOCIAL HISTORY GENERAL: TOBACCO USE ARE YOU A:FORMER SMOKER HOW LONG HAS IT BEEN SINCE YOU LAST SMOKED?1-5 YEARS SMOKING CESSATION INFORMATION GIVEN05/10/2017 BMI CARE GOAL FOLLOW-UP ABOVE NORMAL BMI FOLLOW-UPDIETARY NEEDS EDUCATION ALCOHOL SCREENING DID YOU HAVE A DRINK CONTAINING ALCOHOL IN THE PAST YEAR?YES HOW MANY DRINKS DID YOU HAVE ON A TYPICAL DAY WHEN YOU WERE DRINKING IN THE PAST YEAR?1 OR 2 (0 POINTS) HOW OFTEN DID YOU HAVE A DRINK CONTAINING ALCOHOL IN THE PAST YEAR?MONTHLY OR LESS (1 POINT) POINTS1 INTERPRETATIONNEGATIVE HOW OFTEN DID YOU HAVE SIX OR MORE DRINKS ON ONE OCCASION IN THE PAST YEAR?NEVER (0 POINTS) RECREATIONAL DRUG USE DRUG USE?NO PATIENT DENIES ABUSE OR MISSUSED OF ANY MEDICATION. PATIENT DENIES USE OF ANY ILLEGAL SUBSTANCE INCLUDING MARIJUANA OR COCAINE. CAFFEINE CAFFEINE USE?YES HOW OFTEN AND HOW MUCH? 1-2 CUP SEXUAL HX HAD SEX IN THE LAST 12 MONTHS (VAGINAL, ORAL, OR ANAL)?YES WITHMEN ONLY PREVENTION STRATEGIES DISCUSSED:CONDOMS USE PROTECTION?NO LMP:08/29/2016 HAVE YOU EVER HAD AN STD?NO HIV / HEP-C SCREENING HIV TEST OFFERED TO PATIENT:YES DATE OFFERED:07/03/2016 TEST ACCEPTED:NO HEP-C TEST OFFERED TO PATIENT:YES DATE OFFERED:07/03/2016 REASON:PATIENT DECLINED TEST ACCEPTED:NO REASON:PATIENT DECLINED HOLINESS [id number] NONE LANGUAGE LANGUAGES SPOKEN:FRISIAN EDUCATION LEVEL OF EDUCATION:NOT FINISHED COLLEGE LEARNING BARRIERS / SPECIAL NEEDS CHANGE FROM LAST VISIT?NO BARRIERS TO LEARNING?NO HEARING IMPAIRED?NO VISION IMPAIRED?YES COGNITIVELY IMPAIRED?NO :CORRECTIVE LENSES READINESS TO LEARN?YES LEARNING PREFERENCES?NO LEARNING CAPABILITIES PRESENT?YES EMOTIONAL BARRIERS?NO SPECIAL DEVICES?NO HISTOPATHOLOGY TECHNICIAN NEEDED?NO 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 MARITAL STATUS: SINGLE. PAIN CLINIC PFS, CLERGY, PUBLIC HEALTH REFERRALS WAS THE PROVIDER NOTIFIED OF ANY PERTINENT INFO?YES HAS THE PATIENT BEEN EDUCATED REGARDING HIS/HER PLAN OF CARE?YES HAS THE PATIENT BEEN EDUCATED REGARDING PAIN, THE RISK FOR PAIN, THE IMPORTANCE OF EFFECTIVE PAIN MANAGEMENT, AND THE PAIN ASSESSMENT PROCESS?YES ADVANCE DIRECTIVE ADVANCE DIRECTIVE DISCUSSED WITH PATIENT:YES HCP VIGNESH HERRON [phone] REVIEWED 12/16/17 1025 BVREVIEWED 03/31/18 1458 LASREVIEWED WITH PATIENT 07/31/18 1437 JS. HOSPITALIZATION/MAJOR DIAGNOSTIC PROCEDURE RELATED TO SURGERY REVIEW OF SYSTEMS REVIEWED BY: PROVIDER: SABIHA COLLADO . CONSTITUTIONAL: ANY CHANGE IN YOUR MEDICAL CONDITION? NO . CHILLS NO . FEVER NO . INFECTION: DO YOU HAVE NEW INFECTIONS? NO . DO YOU HAVE HISTORY OF MRSA? NO . MUSCULOSKELETAL: ANY NEW PATTERNS OF PAIN OR NUMBNESS? YES, STATES PALMS OF HANDS ARE CRAMPING UP, FOLLOWING WITH NEUROLOGIST DR. BENTLEY, POSSIBLE CARPAL TUNNEL . GASTROENTEROLOGY: ANY NEW CHANGE IN BOWEL CONTROL? NO . GENITOURINARY: ANY NEW CHANGE IN BLADDER CONTROL? NO . IS THERE A CHANCE YOU COULD BE ? NO . HEMATOLOGY/LYMPH: DO YOU TAKE ANY BLOOD THINNERS? (FOR EXAMPLE- COUMADIN, PLAVIX, AGGRENOX, PLATEL, PRADAXA, OR XARELTO) NO . WHEN WAS YOUR LAST DOSE? DATE: TIME: . NEUROLOGY: HAVE YOU FALLEN IN THE PAST 12 MONTHS? YES, STATES FALL PRIOR TO LAST VISIT, DISCUSSED AT LAST VISIT . ANY NEW EXTREMITY NUMBNESS OR WEAKNESS? NO . CARDIOLOGY: DO YOU HAVE A PACEMAKER OR DEFIBRILLATOR? NO . RESPIRATORY: HAVE YOU BEEN SICK IN THE PAST WEEK? NO . FEVER NO . FLU LIKE SYMPTOMS? NO . COUGH NO . INTEGUMENTARY: DO YOU HAVE ANY RASHES OR OPEN SORES? NO . ALLERGIC/IMMUNO: ARE YOU ALLERGIC TO IV DYE? NO . ANY NEW ALLERGIES? NO . PSYCHIATRIC: DO YOU HAVE THOUGHTS OF HURTING YOURSELF OR SOMEONE ELSE? NO . ARE YOU ABUSED, NEGLECTED, OR IN AN UNSAFE ENVIRONMENT? NO . ENDOCRINOLOGY: ARE YOU DIABETIC? NO . OTHER: DO YOU NEED ANY PRESCRIPTIONS? YES . IF YES, PLEASE LIST: ____NORCO . ANY NEW PROBLEMS WITH YOUR MEDICATIONS? NO . WHEN DID YOU LAST EAT? ____ . WHEN DID YOU LAST DRINK? ____ . WHAT DID YOU LAST DRINK? ____ . NAME OF PERSON DRIVING YOU HOME? ____ . DO YOU HAVE ANY OTHER QUESTIONS OR CONCERNS NO . VITAL SIGNS WT 188.8 LBS, HT 67 IN, BMI 29.57 INDEX, BP 131/89 MM HG, HR 91 /MIN, RR 18 /MIN, TEMP 98.1 F, OXYGEN SAT % 97%, SAFE IN ENV? (Y/N) YES, NA INITIALS SC 14:32, REVIEWED BY: ANNA. EXAMINATION GENERAL EXAMINATION: GENERAL APPEARANCE:AWAKE,ALERT ,PLEAASANT . PSYCHAFFECT NORMAL . LUNGS:LUNG RICO ARE CLEAR TO AUSCULTATION BILATERALLY. GOOD MOVEMENT OF AIR . HEART:S1, S2 IN A REGULAR RATE AND RHYTHM. NO SIGNIFICANT MURMURS, RUBS OR GALLOPS NOTED . MUSCULOSKELETAL:TRIGGER POINTS:LEFT MID THORACIC AND RIGHT LUMBAR PARASPINALS. LUMBAR SACRAL SPINEPALPATION: + FOR PAIN OVER L/S SPINE. + FOR PAIN OVER RIGHT L/S PARASPINAL . NEUROLOGIC EXAM:NORMAL SENSATION LIGHT TOUCH BILAT. LOWER EXTREMITIES SLE + AT 45 DEGREES FOR LEFT HIP AND GROIN PAIN. ASSESSMENTS SPONDYLOSIS OF LUMBOSACRAL JOINT - M47.817 (PRIMARY) LUMBAGO WITH SCIATICA, LEFT SIDE - M54.42 PAIN IN RIGHT KNEE - M25.561 PAIN IN LEFT KNEE - M25.562 TREATMENT SPONDYLOSIS OF LUMBOSACRAL JOINT STOP NAPROXEN TABLET, 500 MG, 1 TABLET WITH FOOD OR MILK NEEDED, ORALLY, EVERY 12 HRS REFILL NORCO TABLET, 7.5-325 MG, 1 TABLET NEEDED, ORALLY, Q8H PRN MDD3, 30 DAY(S), 45, REFILLS 0 START VALIUM TABLET, 5 MG, 1 TAB, ORALLY, 1HR PRE AND 1/2 HR PRE MRI MDD2, 1 DOSE(S), 2, REFILLS 0 [facility] MRI SPINE, L.S. WITHOUT [id number] NOTES: ISTOP REGISTRY REVIEWED AND DEMONSTRATES COMPLLIANCE. (REF #[id number] ) BRINGS IN MEDICATIONS WHICH IS APPROPRIATE FOR WHAT WAS DISPENSED. RECENT URINE TOXICOLOGY REVIEWED. NO UNAUTHORIZED MEDICATIONS. NO ILLICIT SUBSTANCES AND PRESCRIBED MEDICATIONS WERE PRESENT. URINE TOX TODAY, RISKS AND BENEFITS OF NARCOTIC/OPIOD MEDICATIONS WERE REVIEWED WITH PATIENT - THIS INCLUDES BUT IS NOT LIMITED TO RISK OF DEPENDANCE/DEVELOPMENT OF ADDICTION, MOOD DISTURBANCE AND DEPRESSION, OSTEOPOROSIS, HORMONAL AND LABIDAL CHANGES, RESPIRATORY DEPRESSION AND . PATIENT IS ADVISED NOT TO DRIVE OR DRINK ALCOHOL WHILE ON THESE MEDICATIONS,TRIGGER POINT INJECTION: YOUR EXPERIENCE MATERIAL WAS PRINTED,TRIGGER POINT INJECTION MATERIAL WAS PRINTEDTPI LEFT MID THORACIC AND RIGHT LOW BACK. PREVENTIVE MEDICINE PAIN CLINIC TEACHING: PROCEDURE TEACHING PRINTED AND REVIEWED INFORMATION ON TRIGGER POINT INJECTIONS WITH PATIENT. ALSO REVIEWED PRE-PROCEDURE INSTRUCTIONS WITH PATIENT. PATIENT VERBALIZED AN UNDERSTANDING. GISELA CADE 07/31/2018 3:50:42 PM > . PROCEDURE CODES FA211 ESTABILISHED PATIENT [facility] FACILITY CHARGE DISPOSITION & COMMUNICATION FOLLOW UP POST (REASON: TPI LEFT MID THORACIC AND RIGHT LOW BACK) ELECTRONICALLY SIGNED BY TOBIAS KABA ON 08/14/2018 AT 01:00 PM EST DISCLAIMER : THIS IS A VISIT SUMMARY EXTRACTED FROM THE [facility] CHART. IT IS NOT A COPY OF THE [employer] PROGRESS NOTE. DOROTHEA
== END ==
LOC: M PAIN 14:30
PROVIDERS: ATTEND Nurse Practitioner Family
DX: M47.817 Spondylosis without myelopathy or radiculopathy, lumbosacral region (principal); M54.42 Lumbago with sciatica, left side; M25.561 Pain in right knee; M25.562 Pain in left knee; G89.29 Other chronic pain; F41.9 Anxiety disorder, unspecified; Z79.899 Other long term (current) drug therapy; Z91.09 Other allergy status, other than to drugs and biological substances; Z87.891 Personal history of nicotine dependence

== ENCOUNTER → 2018-08-14 | Outpatient (CLI) | payer OTHER ==
[~2018-08-14] MED LIST changes: +BUPIVACAINE HCL 0.25% 10 ML VIAL As Ordered ONE; +BUPIVACAINE HCL 0.25% 30 ML VIAL As Ordered ONE; +TRIAMCINOLONE ACETONIDE SUSP 40 MG/ML VIAL (J3301) As Ordered ONE; +diazePAM 5 MG TAB As Ordered ONE; +oxyCODONE 5MG TAB As Ordered ONE
--- NOTE | 2018-08-23 23:37 | ECWPNPC ---
PATIENT NAME: MIKE LAI : 1980 GENDER: FEMALE VISIT DATE: 08/14/2018 DISCHARGE DATE: 08/14/18 1553 VISIT LOCKED DATE TIME: PHYSICIAN: CATHY QUIROGA MD RESOURCE: CATHY QUIROGA MD REASON FOR APPOINTMENT 1. TPI HISTORY OF PRESENT ILLNESS HISTORY OF PRESENT ILLNESS: PAIN THE PATIENT DESCRIBES THE PAIN... FALL RISK SCREENING: SCREENING :NO FALLS IN THE PAST YEAR CURRENT MEDICATIONS TAKING EXCEDRIN MIGRAINE 250-250-65 MG TABLET 2 TABLETS NEEDED ORALLY EVERY 6 HRS, NOTES: NONE IN WEEKS TAKING ZONISAMIDE 25 MG CAPSULE 2 CAPSULES ORALLY TWICE A DAY, NOTES: 08/14/18 1000 TAKING NORCO 7.5-325 MG TABLET 1 TABLET NEEDED ORALLY Q8H PRN MDD3, NOTES: 08/13/18 1400 TAKING VALIUM 5 MG TABLET 1 TAB ORALLY 1HR PRE AND 1/2 HR PRE MRI MDD2, NOTES: NOT TAKEN YET MEDICATION LIST REVIEWED AND RECONCILED WITH THE PATIENT PAST MEDICAL HISTORY TENDONITIS- RAUL KNEE MIGRAINES URINARY STRESS INCONTINENCE ANXIETY HISTORY OF TOBACCO USE CHRONIC RIGHT KNEE PAIN DYSPEPSIA GRANADOS ALLERGIES GOLD: NAUSEA/VOMITING: ALLERGY BLEACH: NAUSEA/VOMITING: ALLERGY SURGICAL HISTORY LEFT BUTTOCK ABSCESS REMOVAL RIGHT THIGH ABSCESS REMOVAL BTL 2008 ALL TEETH REMOVED FAMILY HISTORY FATHER: 58 YRS, DIAGNOSED WITH DIABETES, HYPERTENSION, HEART DISEASE MOTHER: ALIVE PATERNAL GRAND MOTHER: LUNG CANCER 1 BROTHER(S) - HEALTHY. 2 SON(S) - HEALTHY. SOCIAL HISTORY GENERAL: TOBACCO USE ARE YOU A:FORMER SMOKER HOW LONG HAS IT BEEN SINCE YOU LAST SMOKED?1-5 YEARS SMOKING CESSATION INFORMATION GIVEN05/10/2017 BMI CARE GOAL FOLLOW-UP ABOVE NORMAL BMI FOLLOW-UPDIETARY NEEDS EDUCATION ALCOHOL SCREENING DID YOU HAVE A DRINK CONTAINING ALCOHOL IN THE PAST YEAR?YES HOW OFTEN DID YOU HAVE SIX OR MORE DRINKS ON ONE OCCASION IN THE PAST YEAR?NEVER (0 POINTS) HOW MANY DRINKS DID YOU HAVE ON A TYPICAL DAY WHEN YOU WERE DRINKING IN THE PAST YEAR?1 OR 2 (0 POINTS) HOW OFTEN DID YOU HAVE A DRINK CONTAINING ALCOHOL IN THE PAST YEAR?MONTHLY OR LESS (1 POINT) POINTS1 INTERPRETATIONNEGATIVE RECREATIONAL DRUG USE DRUG USE?NO PATIENT DENIES ABUSE OR MISSUSED OF ANY MEDICATION. PATIENT DENIES USE OF ANY ILLEGAL SUBSTANCE INCLUDING MARIJUANA OR COCAINE. CAFFEINE CAFFEINE USE?YES HOW OFTEN AND HOW MUCH? 1-2 CUP SEXUAL HX HAD SEX IN THE LAST 12 MONTHS (VAGINAL, ORAL, OR ANAL)?YES WITHMEN ONLY PREVENTION STRATEGIES DISCUSSED:CONDOMS USE PROTECTION?NO LMP:08/29/2016 HAVE YOU EVER HAD AN STD?NO HIV / HEP-C SCREENING HIV TEST OFFERED TO PATIENT:YES DATE OFFERED:07/03/2016 TEST ACCEPTED:NO HEP-C TEST OFFERED TO PATIENT:YES DATE OFFERED:07/03/2016 REASON:PATIENT DECLINED TEST ACCEPTED:NO REASON:PATIENT DECLINED CONGREGATIONAL [id number] NONE LANGUAGE LANGUAGES SPOKEN:VIETNAMESE EDUCATION LEVEL OF EDUCATION:NOT FINISHED COLLEGE LEARNING BARRIERS / SPECIAL NEEDS CHANGE FROM LAST VISIT?NO BARRIERS TO LEARNING?NO HEARING IMPAIRED?NO VISION IMPAIRED?YES COGNITIVELY IMPAIRED?NO :CORRECTIVE LENSES READINESS TO LEARN?YES LEARNING PREFERENCES?NO LEARNING CAPABILITIES PRESENT?YES EMOTIONAL BARRIERS?NO SPECIAL DEVICES?NO ROOFING TECHNICIAN NEEDED?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 MARITAL STATUS: SINGLE. PAIN CLINIC PFS, CLERGY, PUBLIC HEALTH REFERRALS WAS THE PROVIDER NOTIFIED OF ANY PERTINENT INFO?YES HAS THE PATIENT BEEN EDUCATED REGARDING HIS/HER PLAN OF CARE?YES HAS THE PATIENT BEEN EDUCATED REGARDING PAIN, THE RISK FOR PAIN, THE IMPORTANCE OF EFFECTIVE PAIN MANAGEMENT, AND THE PAIN ASSESSMENT PROCESS?YES ADVANCE DIRECTIVE ADVANCE DIRECTIVE DISCUSSED WITH PATIENT:YES HCP VIGNESH HERRON [phone] REVIEWED 12/16/17 1025 BVREVIEWED 03/31/18 1458 LASREVIEWED WITH PATIENT 07/31/18 1437 JSREVIEWED WITH PT 08/14/18 1425 BV. HOSPITALIZATION/MAJOR DIAGNOSTIC PROCEDURE RELATED TO SURGERY REVIEW OF SYSTEMS REVIEWED BY: PROVIDER: . CONSTITUTIONAL: ANY CHANGE IN YOUR MEDICAL CONDITION? NO . CHILLS NO . FEVER NO . INFECTION: DO YOU HAVE NEW INFECTIONS? NO . DO YOU HAVE HISTORY OF MRSA? NO . MUSCULOSKELETAL: ANY NEW PATTERNS OF PAIN OR NUMBNESS? NO . GASTROENTEROLOGY: ANY NEW CHANGE IN BOWEL CONTROL? NO . GENITOURINARY: ANY NEW CHANGE IN BLADDER CONTROL? NO . IS THERE A CHANCE YOU COULD BE ? NO . HEMATOLOGY/LYMPH: DO YOU TAKE ANY BLOOD THINNERS? (FOR EXAMPLE- COUMADIN, PLAVIX, AGGRENOX, PLATEL, PRADAXA, OR XARELTO) NO . WHEN WAS YOUR LAST DOSE? DATE: TIME: . NEUROLOGY: HAVE YOU FALLEN IN THE PAST 12 MONTHS? NO . ANY NEW EXTREMITY NUMBNESS OR WEAKNESS? NO . CARDIOLOGY: DO YOU HAVE A PACEMAKER OR DEFIBRILLATOR? NO . RESPIRATORY: HAVE YOU BEEN SICK IN THE PAST WEEK? NO . FEVER NO . FLU LIKE SYMPTOMS? NO . COUGH NO . INTEGUMENTARY: DO YOU HAVE ANY RASHES OR OPEN SORES? NO . ALLERGIC/IMMUNO: ARE YOU ALLERGIC TO IV DYE? NO . ANY NEW ALLERGIES? NO . PSYCHIATRIC: DO YOU HAVE THOUGHTS OF HURTING YOURSELF OR SOMEONE ELSE? NO . ARE YOU ABUSED, NEGLECTED, OR IN AN UNSAFE ENVIRONMENT? NO . ENDOCRINOLOGY: ARE YOU DIABETIC? NO . OTHER: DO YOU NEED ANY PRESCRIPTIONS? NO . IF YES, PLEASE LIST: ____ . ANY NEW PROBLEMS WITH YOUR MEDICATIONS? NO . WHEN DID YOU LAST EAT? 08/14/18 0700 . WHEN DID YOU LAST DRINK? 08/14/18 1100 . WHAT DID YOU LAST DRINK? WATER . NAME OF PERSON DRIVING YOU HOME? VIGNESH HERRON . DO YOU HAVE ANY OTHER QUESTIONS OR CONCERNS NO . VITAL SIGNS WT 188.8 LBS, HT 67 IN, BMI 29.57 INDEX, BP 144/94 MM HG, HR 88 /MIN, RR 18 /MIN, TEMP 97.6 F, OXYGEN SAT % 98%, NA INITIALS SC 14:18, REVIEWED BY: BV. ASSESSMENTS MYALGIA, OTHER SITE - M79.18 (PRIMARY) PROCEDURES PN TRIGGER POINT INJECTION WITH STEROIDS PRE PROCEDURE DIAGNOSIS 1. MYALGIA 2. PAIN AT LEFT THORACIC AREA AND BILATERAL LOW BACK AREA POST PROCEDURE DIAGNOSIS 1. MYALGIA 2. PAIN AT LEFT THORACIC AREA AND BILATERAL LOW BACK AREA PROCEDURE TRIGGER POINT INJECTION AT LEFT THORACIC AREA AND BILATERAL LOW BACK AREA SURGEON DR. CATHY QUIROGA LEAD CASHIER NONE ANESTHESIA LOCAL PRE PROCEDURE NOTE THE PATIENT HAS A HISTORY OF CHRONIC PAIN AT THE LEFT THORACIC AREA AND RIGHT AND LEFT LOW BACK AREA. I EVALUATE THE PATIENT AND REVIEWED THE CHART. THERE IS EVIDENCE OF BANDS OF TISSUE WITH RESTRICTION OF MOVEMENT AND PRESENCE OF TRIGGER POINT AT THE AFFECTED AREA. I WENT OVER THE RISKS, ALTERNATIVES, AND BENEFITS ASSOCIATED WITH THIS PROCEDURE. THE PATIENT WOULD LIKE TO PROCEED AND GIVE CONSENT TO PERFORMED THE PROCEDURE. THE PATIENT DENIES UNEXPLAINABLE WEIGHT LOSS, FEVER, CHILLS, OR NEW CHANGES IN URINARY OR BOWEL CONTROL DESCRIPTION OF PROCEDURE THE PATIENT WAS BROUGHT TO THE PROCEDURE ROOM AND PLACED IN THE SITTING POSITION. THE AREA WAS CLEANED WITH ALCOHOL. THE PROCEDURE WAS DONE USING ASEPTIC STERILE TECHNIQUE. I CHECKED LATERALITY AND THE LEVEL WHERE THE PROCEDURE WAS GOING TO BE PERFORMED WITH THE PATIENT AND THE SUPPORTING STAFF AT THE MOMENT OF THE TIME OUT IN THE PROCEDURE ROOM. USING A 25-GAUGE NEEDLE, TRIGGER POINTS WERE INJECTED AT THE LEFT THORACIC AREA AND RIGHT AND LEFT LOW BACK AREA WITH A TOTAL OF 40 ML OF BUPIVACAINE 0.25% AND KENALOG 40 MG. THERE WAS NO EVIDENCE OF BLOOD, PARESTHESIA OR CEREBROSPINAL FLUID DURING THE PROCEDURE. THE PATIENT WAS SENT TO THE RECOVERY ROOM. THE PATIENT WAS MOVING THE EXTREMITIES AND DOING WELL. THERE WAS NO COMPLICATION DURING THE PROCEDURE POST PROCEDURE NOTE THE PATIENT WILL BE SEEN IN A FOLLOW UP IN THE NEXT FEW WEEKS. INSTRUCTIONS WERE GIVEN, QUESTIONS WERE ANSWERED, AND THE PATIENT EXPRESSED UNDERSTANDING AND AGREES WITH THE PLAN. I, DANE SHAW, DOCUMENTED THE ABOVE INFORMATION ACTING A SCRIBE FOR DR. QUIROGA. I HAVE REVIEWED THE ABOVE DOCUMENT, WRITTEN BY DANE HARPER AND I VERIFY THAT IT IS ACCURATE. PROCEDURE CODES 50211 INJECT TRIGGER POINTS 3/> DISPOSITION & COMMUNICATION FOLLOW UP 3 WEEKS ELECTRONICALLY SIGNED BY CATHY QUIROGA MD, MD ON 08/23/2018 AT 07:38 PM EST DISCLAIMER : THIS IS A VISIT SUMMARY EXTRACTED FROM THE [employer] CHART. IT IS NOT A COPY OF THE [email or web address] PROGRESS NOTE. DOROTHEA
== END ==
LOC: M PAIN 14:30
PROVIDERS: ATTEND Anesthesiology
DX: M79.18 Myalgia, other site (principal); M65.862 Other synovitis and tenosynovitis, left lower leg; M65.861 Other synovitis and tenosynovitis, right lower leg; F41.9 Anxiety disorder, unspecified; K75.81 Nonalcoholic steatohepatitis (NASH); R10.13 Epigastric pain; Z87.891 Personal history of nicotine dependence; Z79.891 Long term (current) use of opiate analgesic; Z79.899 Other long term (current) drug therapy; Z91.048 Other nonmedicinal substance allergy status
CPT/HCPCS: 20553; J3301

== ENCOUNTER → 2018-08-20 | Outpatient (CLI) | payer OTHER ==
[~2018-08-20] MED LIST changes: -BUPIVACAINE HCL 0.25% 10 ML VIAL As Ordered ONE; -BUPIVACAINE HCL 0.25% 30 ML VIAL As Ordered ONE; -TRIAMCINOLONE ACETONIDE SUSP 40 MG/ML VIAL (J3301) As Ordered ONE; -diazePAM 5 MG TAB As Ordered ONE; -oxyCODONE 5MG TAB As Ordered ONE
--- NOTE | 2018-08-20 17:14 | REP ---
MR LUMBAR SPINE WITHOUT CONTRAST: HISTORY: Back and left leg pain. Decreased signal intensity on T2-weighted images is present in the T11-12, L4-5 and L5-S1 intervertebral discs. The discs are decreased in height. These findings are consistent with disc degeneration. A small central disc protrusion is present at the T11-12 level. There is mild effacement of the thecal sac without spinal cord compression. The T11 neural foramina are patent on sagittal images. There is no disc bulge or herniation at the L1-2 through L3-4 levels. There is hypertrophy of the posterior articulating facets at the L3-4 level. The nerves exit the neural foramina without compression. A diffuse disc bulge is present at the L4-5 level. There is minimal compression of the thecal sac. A small left intraforaminal and lateral disc protrusion is present. This abuts the left L4 nerve in the neural foramen. There is hypertrophy of the posterior articulating facets. The right L4 nerve exits the neural foramen without compression. A diffuse disc bulge and small central disc protrusion are present at the L5-S1 level. The disc protrusion abuts the thecal sac and S1 nerves. The L5 nerves exit the neural foramina without compression. The conus medullaris is normal in appearance terminating at the level of the T12-L1 intervertebral disc . Normal signal intensity is present in the lumbar vertebral bodies. IMPRESSION: 1. Diffuse disc bulge at the L4-5 level with minimal thecal sac compression. A small left intraforaminal disc protrusion is present. This abuts the left L4 nerve in the neural foramen. 2. Diffuse disc bulge and small central disc protrusion at the L5-S1 level. The disc protrusion abuts the thecal sac and S1 nerves. Electronically Signed by Demetrio Lomeli MD 08/21/2018 08:13 A
== END ==
LOC: M RAD 14:30
PROVIDERS: ATTEND Nurse Practitioner Family
DX: M51.06 Intervertebral disc disorders with myelopathy, lumbar region (principal); M51.37 Other intervertebral disc degeneration, lumbosacral region

== ENCOUNTER → 2018-09-29 | Outpatient (CLI) | payer OTHER ==
[~2018-09-29] MED LIST changes: -NORC1TAB4 PO; +NORC1TAB7 PO
--- NOTE | 2018-10-15 02:06 | ECWPNPC ---
PATIENT NAME: MIKE LAI : 1980 GENDER: FEMALE VISIT DATE: 09/29/2018 DISCHARGE DATE: 09/29/18 1035 VISIT LOCKED DATE TIME: PHYSICIAN: SABIHA BERNARDO RESOURCE: SABIHA BERNARDO REASON FOR APPOINTMENT 1. POST PROC HISTORY OF PRESENT ILLNESS HISTORY OF PRESENT ILLNESS: HERE FOR F/U OF CHRONIC LOW BACK AND LEG PAIN.HAD TPI ON 08/14/18 LEFT THORACIC AND LUMBAR AREA.SHE RECIEVED >75% IMPROVEMENT IN PAIN FOR SEVERAL WEEKS THEN PAIN GRADUALLY RETURNED TO BASELINE.RATING PAIN VAS 4/10. PAIN THE PATIENT DESCRIBES THE PAIN... FALL RISK SCREENING: SCREENING : NO FALLS IN THE PAST YEAR. CURRENT MEDICATIONS TAKING EXCEDRIN MIGRAINE 250-250-65 MG TABLET 2 TABLETS NEEDED ORALLY EVERY 6 HRS, NOTES: NONE IN WEEKS TAKING ZONISAMIDE 50 MG CAPSULE 1 CAPSULES ORALLY TWICE A DAY, NOTES: 08/14/18 1000 TAKING NORCO 7.5-325 MG TABLET 1 TABLET NEEDED ORALLY Q8H PRN MDD3, NOTES: 08/13/18 1400 NOT-TAKING VALIUM 5 MG TABLET 1 TAB ORALLY 1HR PRE AND 1/2 HR PRE MRI MDD2, NOTES: NOT TAKEN YET MEDICATION LIST REVIEWED AND RECONCILED WITH THE PATIENT PAST MEDICAL HISTORY TENDONITIS- RAUL KNEE MIGRAINES URINARY STRESS INCONTINENCE ANXIETY HISTORY OF TOBACCO USE CHRONIC RIGHT KNEE PAIN DYSPEPSIA GRANADOS BILATERAL MILD CARPAL TUNNEL ALLERGIES GOLD: NAUSEA/VOMITING - ALLERGY BLEACH: NAUSEA/VOMITING - ALLERGY SURGICAL HISTORY LEFT BUTTOCK ABSCESS REMOVAL RIGHT THIGH ABSCESS REMOVAL BTL 2008 ALL TEETH REMOVED FAMILY HISTORY FATHER: 58 YRS, DIAGNOSED WITH HYPERTENSION, HEART DISEASE, DIABETES MOTHER: ALIVE PATERNAL GRAND MOTHER: LUNG CANCER 1 BROTHER(S) - HEALTHY. 2 SON(S) - HEALTHY. SOCIAL HISTORY GENERAL: TOBACCO USE ARE YOU A:FORMER SMOKER HOW LONG HAS IT BEEN SINCE YOU LAST SMOKED?1-5 YEARS SMOKING CESSATION INFORMATION GIVEN05/10/2017 BMI CARE GOAL FOLLOW-UP ABOVE NORMAL BMI FOLLOW-UPDIETARY NEEDS EDUCATION ALCOHOL SCREENING DID YOU HAVE A DRINK CONTAINING ALCOHOL IN THE PAST YEAR?YES HOW OFTEN DID YOU HAVE SIX OR MORE DRINKS ON ONE OCCASION IN THE PAST YEAR?NEVER (0 POINTS) HOW MANY DRINKS DID YOU HAVE ON A TYPICAL DAY WHEN YOU WERE DRINKING IN THE PAST YEAR?1 OR 2 (0 POINTS) HOW OFTEN DID YOU HAVE A DRINK CONTAINING ALCOHOL IN THE PAST YEAR?MONTHLY OR LESS (1 POINT) POINTS1 INTERPRETATIONNEGATIVE RECREATIONAL DRUG USE DRUG USE?NO PATIENT DENIES ABUSE OR MISSUSED OF ANY MEDICATION. PATIENT DENIES USE OF ANY ILLEGAL SUBSTANCE INCLUDING MARIJUANA OR COCAINE. CAFFEINE CAFFEINE USE?YES HOW OFTEN AND HOW MUCH? 1-2 CUP SEXUAL HX HAD SEX IN THE LAST 12 MONTHS (VAGINAL, ORAL, OR ANAL)?YES WITHMEN ONLY PREVENTION STRATEGIES DISCUSSED:CONDOMS USE PROTECTION?NO LMP:08/29/2016 HAVE YOU EVER HAD AN STD?NO HIV / HEP-C SCREENING HIV TEST OFFERED TO PATIENT:YES DATE OFFERED:07/03/2016 TEST ACCEPTED:NO HEP-C TEST OFFERED TO PATIENT:YES DATE OFFERED:07/03/2016 REASON:PATIENT DECLINED TEST ACCEPTED:NO REASON:PATIENT DECLINED AMISH [id number] NONE LANGUAGE LANGUAGES SPOKEN:CAMEROONIAN EDUCATION LEVEL OF EDUCATION:NOT FINISHED COLLEGE LEARNING BARRIERS / SPECIAL NEEDS CHANGE FROM LAST VISIT?NO BARRIERS TO LEARNING?NO HEARING IMPAIRED?NO VISION IMPAIRED?YES COGNITIVELY IMPAIRED?NO :CORRECTIVE LENSES READINESS TO LEARN?YES LEARNING PREFERENCES?NO LEARNING CAPABILITIES PRESENT?YES EMOTIONAL BARRIERS?NO SPECIAL DEVICES?NO A&P MECHANIC NEEDED?NO 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 MARITAL STATUS: SINGLE. PAIN CLINIC PFS, CLERGY, PUBLIC HEALTH REFERRALS WAS THE PROVIDER NOTIFIED OF ANY PERTINENT INFO?YES HAS THE PATIENT BEEN EDUCATED REGARDING HIS/HER PLAN OF CARE?YES HAS THE PATIENT BEEN EDUCATED REGARDING PAIN, THE RISK FOR PAIN, THE IMPORTANCE OF EFFECTIVE PAIN MANAGEMENT, AND THE PAIN ASSESSMENT PROCESS?YES ADVANCE DIRECTIVE ADVANCE DIRECTIVE DISCUSSED WITH PATIENT:YES HCP VIGNESH HERRON [phone] REVIEWED 12/16/17 1025 BVREVIEWED 03/31/18 1458 LASREVIEWED WITH PATIENT 07/31/18 1437 JSREVIEWED WITH PT 08/14/18 1425 BV. HOSPITALIZATION/MAJOR DIAGNOSTIC PROCEDURE RELATED TO SURGERY REVIEW OF SYSTEMS REVIEWED BY: PROVIDER: SABIHA COLLADO . CONSTITUTIONAL: ANY CHANGE IN YOUR MEDICAL CONDITION? NO . CHILLS NO . FEVER NO . INFECTION: DO YOU HAVE NEW INFECTIONS? NO . DO YOU HAVE HISTORY OF MRSA? NO . MUSCULOSKELETAL: ANY NEW PATTERNS OF PAIN OR NUMBNESS? NO . GASTROENTEROLOGY: ANY NEW CHANGE IN BOWEL CONTROL? NO . GENITOURINARY: ANY NEW CHANGE IN BLADDER CONTROL? NO . IS THERE A CHANCE YOU COULD BE ? NO . HEMATOLOGY/LYMPH: DO YOU TAKE ANY BLOOD THINNERS? (FOR EXAMPLE- COUMADIN, PLAVIX, AGGRENOX, PLATEL, PRADAXA, OR XARELTO) NO . WHEN WAS YOUR LAST DOSE? DATE: TIME: . NEUROLOGY: HAVE YOU FALLEN IN THE PAST 12 MONTHS? NO . ANY NEW EXTREMITY NUMBNESS OR WEAKNESS? NO . CARDIOLOGY: DO YOU HAVE A PACEMAKER OR DEFIBRILLATOR? NO . RESPIRATORY: HAVE YOU BEEN SICK IN THE PAST WEEK? NO . FEVER NO . FLU LIKE SYMPTOMS? NO . COUGH NO . INTEGUMENTARY: DO YOU HAVE ANY RASHES OR OPEN SORES? NO . ALLERGIC/IMMUNO: ARE YOU ALLERGIC TO IV DYE? NO . ANY NEW ALLERGIES? NO . PSYCHIATRIC: DO YOU HAVE THOUGHTS OF HURTING YOURSELF OR SOMEONE ELSE? NO . ARE YOU ABUSED, NEGLECTED, OR IN AN UNSAFE ENVIRONMENT? NO . ENDOCRINOLOGY: ARE YOU DIABETIC? NO . OTHER: DO YOU NEED ANY PRESCRIPTIONS? NO . IF YES, PLEASE LIST: ____ . ANY NEW PROBLEMS WITH YOUR MEDICATIONS? NO . WHEN DID YOU LAST EAT? ____ . WHEN DID YOU LAST DRINK? ____ . WHAT DID YOU LAST DRINK? ____ . NAME OF PERSON DRIVING YOU HOME? ____ . DO YOU HAVE ANY OTHER QUESTIONS OR CONCERNS NO . VITAL SIGNS WT 189 LBS, HT 67 IN, BMI 29.60 INDEX, BP 132/89 MM HG, HR 72 /MIN, RR 18 /MIN, TEMP 96.9 F, OXYGEN SAT % 100%, NA INITIALS SC 09:48. EXAMINATION GENERAL EXAMINATION: GENERAL APPEARANCE: AWAKE,ALERT ,PLEAASANT . PSYCH AFFECT NORMAL . LUNGS: LUNG RICO ARE CLEAR TO AUSCULTATION BILATERALLY. GOOD MOVEMENT OF AIR . HEART: S1, S2 IN A REGULAR RATE AND RHYTHM. NO SIGNIFICANT MURMURS, RUBS OR GALLOPS NOTED . LUMBAR SACRAL SPINE PALPATION: + FOR PAIN OVER L/S SPINE. + FOR PAIN OVER L/S PARASPINALS.POSITIVE SLE AT 45 DEGREES BILAT. NEUROLOGIC EXAM: NORMAL SENSATION LIGHT TOUCH BILAT. LOWER EXTREMITIES. DIAGNOSTIC TESTS REVIEWED MRI L/S SPINE-08/20/18 -REVIEWED. ASSESSMENTS PROTRUSION OF LUMBAR INTERVERTEBRAL DISC - M51.26 (PRIMARY) LUMBOSACRAL RADICULOPATHY - M54.17 TREATMENT PROTRUSION OF LUMBAR INTERVERTEBRAL DISC CONTINUE NORCO TABLET, 7.5-325 MG, 1 TABLET NEEDED, ORALLY, Q8H PRN MDD3, NOTES: 08/13/18 1400 NOTES: ISTOP REGISTRY REVIEWED AND DEMONSTRATES COMPLLIANCE. BRINGS IN MEDICATIONS WHICH IS APPROPRIATE FOR WHAT WAS DISPENSED. RECENT URINE TOXICOLOGY REVIEWED. NO UNAUTHORIZED MEDICATIONS. NO ILLICIT SUBSTANCES AND PRESCRIBED MEDICATIONS WERE PRESENT. , RISKS AND BENEFITS OF NARCOTIC/OPIOD MEDICATIONS WERE REVIEWED WITH PATIENT - THIS INCLUDES BUT IS NOT LIMITED TO RISK OF DEPENDANCE/DEVELOPMENT OF ADDICTION, MOOD DISTURBANCE AND DEPRESSION, OSTEOPOROSIS, HORMONAL AND LABIDAL CHANGES, RESPIRATORY DEPRESSION AND . PATIENT IS ADVISED NOT TO DRIVE OR DRINK ALCOHOL WHILE ON THESE MEDICATIONSL4/5 INTRALAMINAR LESI,WHAT IS LUMBAR EPIDURAL INJECTION? MATERIAL WAS PRINTED. PROCEDURE CODES FA211 ESTABILISHED PATIENT [facility] CHARGE DISPOSITION & COMMUNICATION FOLLOW UP POST (REASON: L4/5 INTRALAMINAR LESI) ELECTRONICALLY SIGNED BY TOBIAS KABA ON 10/13/2018 AT 01:29 PM EDT DISCLAIMER : THIS IS A VISIT SUMMARY EXTRACTED FROM THE [employer] CHART. IT IS NOT A COPY OF THE [employer] PROGRESS NOTE. STANLEYD
== END ==
LOC: M PAIN 09:15
PROVIDERS: ATTEND Nurse Practitioner Family
DX: M51.26 Other intervertebral disc displacement, lumbar region (principal); M54.17 Radiculopathy, lumbosacral region; G89.29 Other chronic pain; G43.909 Migraine, unspecified, not intractable, without status migrainosus; Z86.59 Personal history of other mental and behavioral disorders; Z87.891 Personal history of nicotine dependence; Z91.048 Other nonmedicinal substance allergy status; Z79.899 Other long term (current) drug therapy

== ENCOUNTER → 2018-10-08 | Outpatient (CLI) | payer OTHER ==
[~2018-10-08] MED LIST changes: +ISOVUE-M 300 61% 15ML VIAL (Q9967) As Ordered ONE; +LIDOCAINE 1% SDV INJ 30 ML VIAL As Ordered ONE; +diazePAM 5 MG TAB As Ordered ONE; +methylPREDNISolone SUSP 40 MG/ML (DEPO-medrol) VIAL (J1030) As Ordered ONE; +oxyCODONE 5MG TAB As Ordered ONE
--- NOTE | 2018-10-08 13:16 | REP ---
Partial lumbar spine series: Three views . History: Injection procedure for pain. 12 seconds of fluoroscopy time is reported. Findings: A sequence of three fluoroscopically obtained last image hold procedural spot radiographs of the lumbar spine document needle position and contrast injection associated with injection procedure. Electronically Signed by Obed Langston MD 10/08/2018 01:08 P
--- NOTE | 2018-10-26 23:51 | ECWPNPC ---
PATIENT NAME: MIKE LAI : 1980 GENDER: FEMALE VISIT DATE: 10/08/2018 DISCHARGE DATE: 10/08/18 1215 VISIT LOCKED DATE TIME: PHYSICIAN: CATHY QUIROGA MD RESOURCE: CATHY QUIROGA MD REASON FOR APPOINTMENT 1. INTRALAMINAR LESI HISTORY OF PRESENT ILLNESS HISTORY OF PRESENT ILLNESS: PAIN THE PATIENT DESCRIBES THE PAIN... FALL RISK SCREENING: SCREENING :NO FALLS REPORTED IN THE LAST YEAR CURRENT MEDICATIONS TAKING EXCEDRIN MIGRAINE 250-250-65 MG TABLET 2 TABLETS NEEDED ORALLY EVERY 6 HRS, NOTES: NONE IN WEEKS TAKING ZONISAMIDE 50 MG CAPSULE 1 CAPSULES ORALLY TWICE A DAY, NOTES: 10/08 7AM TAKING NORCO 7.5-325 MG TABLET 1 TABLET NEEDED ORALLY Q8H PRN MDD3, NOTES: 10/07 4PM NOT-TAKING VALIUM 5 MG TABLET 1 TAB ORALLY 1HR PRE AND 1/2 HR PRE MRI MDD2, NOTES: NOT TAKEN YET MEDICATION LIST REVIEWED AND RECONCILED WITH THE PATIENT PAST MEDICAL HISTORY TENDONITIS- RAUL KNEE MIGRAINES URINARY STRESS INCONTINENCE ANXIETY HISTORY OF TOBACCO USE CHRONIC RIGHT KNEE PAIN DYSPEPSIA GRANADOS BILATERAL MILD CARPAL TUNNEL ALLERGIES GOLD: NAUSEA/VOMITING - ALLERGY BLEACH: NAUSEA/VOMITING - ALLERGY SURGICAL HISTORY LEFT BUTTOCK ABSCESS REMOVAL RIGHT THIGH ABSCESS REMOVAL BTL 2008 ALL TEETH REMOVED FAMILY HISTORY FATHER: 58 YRS, DIAGNOSED WITH HEART DISEASE, DIABETES, HYPERTENSION MOTHER: ALIVE PATERNAL GRAND MOTHER: LUNG CANCER 1 BROTHER(S) - HEALTHY. 2 SON(S) - HEALTHY. SOCIAL HISTORY GENERAL: TOBACCO USE ARE YOU A:FORMER SMOKER HOW LONG HAS IT BEEN SINCE YOU LAST SMOKED?1-5 YEARS SMOKING CESSATION INFORMATION GIVEN05/10/2017 LATEX QUESTIONNAIRE LATEX ALLERGY : HAVE YOU EVER DEVELOPED ANY TYPE OF REACTION AFTER HANDLING LATEX PRODUCTS SUCH RUBBER GLOVES, CONDOMS, DIAPHRAGMS, BALLOONS, SOCKS, OR UNDERWEAR?NO LATEX ALLERGY : HAVE YOU EVER DEVELOPED ANY TYPE OF REACTION DURING OR AFTER DENTAL APPOINTMENT, VAGINAL/RECTAL EXAMINATION, SURGICAL PROCEDURE, OR ANY OTHER EXPOSURE?NO LATEX RISK : HAVE YOU EVER HAD ANY DIFFICULTY BREATHING OR HIVES AFTER EATING OR HANDLING ANY FRUITS, OR VEGETABLES; SUCH KIWI, BANANAS, STONE FRUITS, OR CHESTNUTSNO LATEX RISK : DO YOU HAVE A PREVIOUS PERSONAL HISTORY OF MORE THAN NINE SURGERIES, SPINA BIFIDA, OR REPEATED CATHERTIZATIONS? NO LATEX RISK : ARE YOU FREQUENTLY EXPOSED TO LATEX PRODUCTS IN YOUR OCCUPATION?NO DATE ASKED : 10/08/2018 BMI CARE GOAL FOLLOW-UP ABOVE NORMAL BMI FOLLOW-UPDIETARY NEEDS EDUCATION ALCOHOL SCREENING DID YOU HAVE A DRINK CONTAINING ALCOHOL IN THE PAST YEAR?YES HOW OFTEN DID YOU HAVE SIX OR MORE DRINKS ON ONE OCCASION IN THE PAST YEAR?NEVER (0 POINTS) HOW MANY DRINKS DID YOU HAVE ON A TYPICAL DAY WHEN YOU WERE DRINKING IN THE PAST YEAR?1 OR 2 (0 POINTS) HOW OFTEN DID YOU HAVE A DRINK CONTAINING ALCOHOL IN THE PAST YEAR?MONTHLY OR LESS (1 POINT) POINTS1 INTERPRETATIONNEGATIVE RECREATIONAL DRUG USE DRUG USE?NO PATIENT DENIES ABUSE OR MISSUSED OF ANY MEDICATION. PATIENT DENIES USE OF ANY ILLEGAL SUBSTANCE INCLUDING MARIJUANA OR COCAINE. CAFFEINE CAFFEINE USE?YES HOW OFTEN AND HOW MUCH? 1-2 CUP SEXUAL HX HAD SEX IN THE LAST 12 MONTHS (VAGINAL, ORAL, OR ANAL)?YES WITHMEN ONLY PREVENTION STRATEGIES DISCUSSED:CONDOMS USE PROTECTION?NO LMP:08/29/2016 HAVE YOU EVER HAD AN STD?NO HIV / HEP-C SCREENING HIV TEST OFFERED TO PATIENT:YES DATE OFFERED:07/03/2016 TEST ACCEPTED:NO HEP-C TEST OFFERED TO PATIENT:YES DATE OFFERED:07/03/2016 REASON:PATIENT DECLINED TEST ACCEPTED:NO REASON:PATIENT DECLINED JEHOVAH'S WITNESS [id number] NONE LANGUAGE LANGUAGES SPOKEN:MONGOLIAN EDUCATION LEVEL OF EDUCATION:NOT FINISHED COLLEGE LEARNING BARRIERS / SPECIAL NEEDS CHANGE FROM LAST VISIT?NO BARRIERS TO LEARNING?NO HEARING IMPAIRED?NO VISION IMPAIRED?YES COGNITIVELY IMPAIRED?NO :CORRECTIVE LENSES READINESS TO LEARN?YES LEARNING PREFERENCES?NO LEARNING CAPABILITIES PRESENT?YES EMOTIONAL BARRIERS?NO SPECIAL DEVICES?NO ENTERPRISE MOBILITY ARCHITECT NEEDED?NO 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 MARITAL STATUS: SINGLE. PAIN CLINIC PFS, CLERGY, PUBLIC HEALTH REFERRALS WAS THE PROVIDER NOTIFIED OF ANY PERTINENT INFO?YES HAS THE PATIENT BEEN EDUCATED REGARDING HIS/HER PLAN OF CARE?YES PROCEDURE DAY TEACHING HAS THE PATIENT BEEN EDUCATED REGARDING PAIN, THE RISK FOR PAIN, THE IMPORTANCE OF EFFECTIVE PAIN MANAGEMENT, AND THE PAIN ASSESSMENT PROCESS?YES ADVANCE DIRECTIVE ADVANCE DIRECTIVE DISCUSSED WITH PATIENT:YES HCP VIGNESH HERRON [phone] REVIEWED 12/16/17 1025 BVREVIEWED 03/31/18 1458 LASREVIEWED WITH PATIENT 07/31/18 1437 JSREVIEWED WITH PT 08/14/18 1425 BV. HOSPITALIZATION/MAJOR DIAGNOSTIC PROCEDURE RELATED TO SURGERY REVIEW OF SYSTEMS REVIEWED BY: PROVIDER: . CONSTITUTIONAL: ANY CHANGE IN YOUR MEDICAL CONDITION? NO . CHILLS NO . FEVER NO . INFECTION: DO YOU HAVE NEW INFECTIONS? NO . DO YOU HAVE HISTORY OF MRSA? NO . MUSCULOSKELETAL: ANY NEW PATTERNS OF PAIN OR NUMBNESS? NO . GASTROENTEROLOGY: ANY NEW CHANGE IN BOWEL CONTROL? NO . GENITOURINARY: ANY NEW CHANGE IN BLADDER CONTROL? NO . IS THERE A CHANCE YOU COULD BE ? NO . HEMATOLOGY/LYMPH: DO YOU TAKE ANY BLOOD THINNERS? (FOR EXAMPLE- COUMADIN, PLAVIX, AGGRENOX, PLATEL, PRADAXA, OR XARELTO) NO . WHEN WAS YOUR LAST DOSE? DATE: TIME: . NEUROLOGY: HAVE YOU FALLEN IN THE PAST 12 MONTHS? NO . ANY NEW EXTREMITY NUMBNESS OR WEAKNESS? NO . CARDIOLOGY: DO YOU HAVE A PACEMAKER OR DEFIBRILLATOR? NO . RESPIRATORY: HAVE YOU BEEN SICK IN THE PAST WEEK? NO . FEVER NO . FLU LIKE SYMPTOMS? NO . COUGH NO . INTEGUMENTARY: DO YOU HAVE ANY RASHES OR OPEN SORES? NO . ALLERGIC/IMMUNO: ARE YOU ALLERGIC TO IV DYE? NO . ANY NEW ALLERGIES? NO . PSYCHIATRIC: DO YOU HAVE THOUGHTS OF HURTING YOURSELF OR SOMEONE ELSE? NO . ARE YOU ABUSED, NEGLECTED, OR IN AN UNSAFE ENVIRONMENT? NO . ENDOCRINOLOGY: ARE YOU DIABETIC? NO . OTHER: DO YOU NEED ANY PRESCRIPTIONS? NO . IF YES, PLEASE LIST: ____ . ANY NEW PROBLEMS WITH YOUR MEDICATIONS? NO . WHEN DID YOU LAST EAT? 10/07 6PM . WHEN DID YOU LAST DRINK? 10/08 9AM . WHAT DID YOU LAST DRINK? WATER . NAME OF PERSON DRIVING YOU HOME? VIGNESH . DO YOU HAVE ANY OTHER QUESTIONS OR CONCERNS NO . VITAL SIGNS WT 189.2 LBS, HT 67 IN, BMI 29.63 INDEX, BP 147/85 MM HG, HR 75 /MIN, RR 18 /MIN, TEMP 98.0 F, OXYGEN SAT % 99%, SAFE IN ENV? (Y/N) Y, NA INITIALS TN 10:56, REVIEWED BY: NDIA. ASSESSMENTS INTERVERTEBRAL DISC DISORDER WITH RADICULOPATHY OF LUMBOSACRAL REGION - M51.17 (PRIMARY) PROCEDURES PRE PROCEDURE DIAGNOSIS LUMBOSACRAL DISC DISORDER WITH RADICULOPATHY POST PROCEDURE DIAGNOSIS LUMBOSACRAL DISC DISORDER WITH RADICULOPATHY PROCEDURE LUMBAR EPIDURAL STEROID INJECTION UNDER FLUOROSCOPIC GUIDANCE SURGEON DR. CATHY QUIROGA FLASH RANGING CREWMEMBER NONE ANESTHESIA LOCAL PRE PROCEDURE NOTE THE PATIENT HAS A HISTORY OF CHRONIC LOW BACK PAIN. I EVALUATE THE PATIENT AND REVIEWED THE CHART. I WENT OVER THE RISKS, ALTERNATIVES, AND BENEFITS ASSOCIATED WITH THIS PROCEDURE. THE PATIENT WOULD LIKE TO PROCEED AND GIVE CONSENT TO PERFORMED THE PROCEDURE. THE PATIENT DENIES UNEXPLAINABLE WEIGHT LOSS, FEVER, CHILLS, OR NEW CHANGES IN URINARY OR BOWEL CONTROL. DESCRIPTION OF PROCEDURE THE PATIENT WAS BROUGHT TO THE PROCEDURE ROOM AND PLACED IN THE PRONE POSITION. THE LUMBOSACRAL AREA WAS CLEANED WITH BETADINE SOLUTION AND DRAPED ASEPTICALLY. THE PROCEDURE WAS DONE UNDER STERILE CONDITIONS. I CHECKED LATERALITY AND THE LEVEL WHERE THE PROCEDURE WAS GOING TO BE PERFORMED WITH THE PATIENT AND THE SUPPORTING STAFF AT THE MOMENT OF THE TIME OUT IN THE PROCEDURE ROOM. UNDER FLUOROSCOPIC GUIDANCE, THE TARGET POINT WAS SELECTED AT THE INTERLAMINAR LEVEL OF L5-S1. LIDOCAINE WAS USED TO NUMB THE SKIN AND THE SUBCUTANEOUS TISSUE BELOW IT. EPIDURAL TUOHY NEEDLE, 17-GAUGE, WAS ADVANCED UNDER FLUOROSCOPIC GUIDANCE AND FOLLOWING PATIENT FEEDBACK UNTIL THE EPIDURAL SPACE WAS REACHED, 7 CM DEEP INTO THE SKIN BY THE LOSS OF RESISTANCE TECHNIQUE. ISOVUE M DYE 30%, 0.25 ML, WAS INJECTED SHOWING ADEQUATE SPREAD OF THE DYE. THEN, A SOLUTION OF 3 ML OF NORMAL SALINE WITH DEPO-MEDROL 60 MG WAS INJECTED SLOWLY FOLLOWING PATIENT FEEDBACK. THERE WAS NO EVIDENCE OF BLOOD, PARESTHESIA OR CEREBROSPINAL FLUID DURING THE PROCEDURE. THE PATIENT WAS SENT TO THE RECOVERY ROOM. THE PATIENT WAS MOVING THE EXTREMITIES AND DOING WELL. THERE WAS NO COMPLICATION DURING THE PROCEDURE. FLUOROSCOPY TIME WAS 12 SECONDS. POST PROCEDURE NOTE THE PATIENT WILL BE SEEN IN A FOLLOW UP IN THE NEXT FEW WEEKS. INSTRUCTIONS WERE GIVEN, QUESTIONS WERE ANSWERED, AND THE PATIENT EXPRESSED UNDERSTANDING AND AGREES WITH THE PLAN. I, DANE SHAW, DOCUMENTED THE ABOVE INFORMATION ACTING A SCRIBE FOR DR. QUIROGA. I HAVE REVIEWED THE ABOVE DOCUMENT, WRITTEN BY DANE AMAYAIBGlendy AND I VERIFY THAT IT IS ACCURATE. DIAGNOSTIC IMAGING [facility] FLUORO GUIDE SPINE INJECTION (PAIN)[id number] PROCEDURE CODES 6045F RADXPS IN END [id number] PXD [id number] LUMBAR/SACRAL W/ IMAGING DISPOSITION & COMMUNICATION FOLLOW UP 2 WEEKS ELECTRONICALLY SIGNED BY CATHY QUIROGA MD, MD ON 10/26/2018 AT 03:41 PM EDT DISCLAIMER : THIS IS A VISIT SUMMARY EXTRACTED FROM THE [employer] CHART. IT IS NOT A COPY OF THE [employer] PROGRESS NOTE. DOROTHEA
== END ==
LOC: M PAIN 11:00
PROVIDERS: ATTEND Anesthesiology
DX: M51.17 Intervertebral disc disorders with radiculopathy, lumbosacral region (principal); G43.909 Migraine, unspecified, not intractable, without status migrainosus; F41.9 Anxiety disorder, unspecified; Z79.899 Other long term (current) drug therapy; Z91.09 Other allergy status, other than to drugs and biological substances; Z87.891 Personal history of nicotine dependence
CPT/HCPCS: 62323; J1030; Q9967

== ENCOUNTER → 2018-10-22 | Outpatient (CLI) | payer OTHER ==
[~2018-10-22] MED LIST changes: -ISOVUE-M 300 61% 15ML VIAL (Q9967) As Ordered ONE; -LIDOCAINE 1% SDV INJ 30 ML VIAL As Ordered ONE; -diazePAM 5 MG TAB As Ordered ONE; -methylPREDNISolone SUSP 40 MG/ML (DEPO-medrol) VIAL (J1030) As Ordered ONE; -oxyCODONE 5MG TAB As Ordered ONE
--- NOTE | 2018-11-07 01:20 | ECWPNPC ---
PATIENT NAME: MIKE LAI : 1980 GENDER: FEMALE VISIT DATE: 10/22/2018 DISCHARGE DATE: 10/22/18 1019 VISIT LOCKED DATE TIME: PHYSICIAN: SABIHA BERNARDO RESOURCE: SABIHA BERNARDO REASON FOR APPOINTMENT 1. POST PROCEDURE HISTORY OF PRESENT ILLNESS HISTORY OF PRESENT ILLNESS: HERE FOR POST PROCEDURE F/U.HAD LESI 4-3-19.REPORTING NO IMPROVEMENT POST PROCEDURE.HAD SIGNIFICANT RELIEF IN PAST W TPI.RATING PAIN VAS 7/10. PAIN THE PATIENT DESCRIBES THE PAIN... FALL RISK SCREENING: SCREENING :NO FALLS REPORTED IN THE LAST YEAR CURRENT MEDICATIONS TAKING EXCEDRIN MIGRAINE 250-250-65 MG TABLET 2 TABLETS NEEDED ORALLY EVERY 6 HRS TAKING ZONISAMIDE 50 MG CAPSULE 1 CAPSULE ORALLY 1 IN A.M., 2 IN P.M. TAKING NORCO 7.5-325 MG TABLET 1 TABLET NEEDED ORALLY Q8H PRN MDD3 NOT-TAKING VALIUM 5 MG TABLET 1 TAB ORALLY 1HR PRE AND 1/2 HR PRE MRI MDD2, NOTES: NOT TAKEN YET MEDICATION LIST REVIEWED AND RECONCILED WITH THE PATIENT PAST MEDICAL HISTORY TENDONITIS- RAUL KNEE MIGRAINES URINARY STRESS INCONTINENCE ANXIETY HISTORY OF TOBACCO USE CHRONIC BILATERAL KNEE PAIN DYSPEPSIA GRANADOS BILATERAL MILD CARPAL TUNNEL ALLERGIES GOLD: NAUSEA/VOMITING - ALLERGY BLEACH: SMELL CAUSES NAUSEA/VOMITING, REDNESS AND SWELLING - ALLERGY SURGICAL HISTORY LEFT BUTTOCK ABSCESS REMOVAL RIGHT THIGH ABSCESS REMOVAL BTL 2008 ALL TEETH REMOVED FAMILY HISTORY FATHER: 58 YRS, DIAGNOSED WITH DIABETES, HYPERTENSION, HEART DISEASE MOTHER: ALIVE, FIBROMYALGIA, DRUG ABUSE, ANXIETY, DEPRESSION, PSYCHIATRIC CONDITIONS PATERNAL GRAND MOTHER: LUNG CANCER 1 BROTHER(S) - HEALTHY. 2 SON(S) - HEALTHY. SOCIAL HISTORY GENERAL: TOBACCO USE ARE YOU A:FORMER SMOKER HOW LONG HAS IT BEEN SINCE YOU LAST SMOKED?1-5 YEARS SMOKING CESSATION INFORMATION GIVEN05/10/2017 LATEX QUESTIONNAIRE LATEX ALLERGY : HAVE YOU EVER DEVELOPED ANY TYPE OF REACTION AFTER HANDLING LATEX PRODUCTS SUCH RUBBER GLOVES, CONDOMS, DIAPHRAGMS, BALLOONS, SOCKS, OR UNDERWEAR?NO LATEX ALLERGY : HAVE YOU EVER DEVELOPED ANY TYPE OF REACTION DURING OR AFTER DENTAL APPOINTMENT, VAGINAL/RECTAL EXAMINATION, SURGICAL PROCEDURE, OR ANY OTHER EXPOSURE?NO LATEX RISK : HAVE YOU EVER HAD ANY DIFFICULTY BREATHING OR HIVES AFTER EATING OR HANDLING ANY FRUITS, OR VEGETABLES; SUCH KIWI, BANANAS, STONE FRUITS, OR CHESTNUTSNO LATEX RISK : DO YOU HAVE A PREVIOUS PERSONAL HISTORY OF MORE THAN NINE SURGERIES, SPINA BIFIDA, OR REPEATED CATHERTIZATIONS? NO LATEX RISK : ARE YOU FREQUENTLY EXPOSED TO LATEX PRODUCTS IN YOUR OCCUPATION?NO DATE ASKED : 10/08/2018 BMI CARE GOAL FOLLOW-UP ABOVE NORMAL BMI FOLLOW-UPDIETARY NEEDS EDUCATION ALCOHOL SCREENING DID YOU HAVE A DRINK CONTAINING ALCOHOL IN THE PAST YEAR?YES HOW OFTEN DID YOU HAVE SIX OR MORE DRINKS ON ONE OCCASION IN THE PAST YEAR?NEVER (0 POINTS) HOW MANY DRINKS DID YOU HAVE ON A TYPICAL DAY WHEN YOU WERE DRINKING IN THE PAST YEAR?1 OR 2 (0 POINTS) HOW OFTEN DID YOU HAVE A DRINK CONTAINING ALCOHOL IN THE PAST YEAR?MONTHLY OR LESS (1 POINT) POINTS1 INTERPRETATIONNEGATIVE RECREATIONAL DRUG USE DRUG USE?NO PATIENT DENIES ABUSE OR MISSUSED OF ANY MEDICATION. PATIENT DENIES USE OF ANY ILLEGAL SUBSTANCE INCLUDING MARIJUANA OR COCAINE. CAFFEINE CAFFEINE USE?YES HOW OFTEN AND HOW MUCH? 1-2 CUP SEXUAL HX HAD SEX IN THE LAST 12 MONTHS (VAGINAL, ORAL, OR ANAL)?YES WITHMEN ONLY PREVENTION STRATEGIES DISCUSSED:CONDOMS USE PROTECTION?NO LMP:08/29/2016 HAVE YOU EVER HAD AN STD?NO HIV / HEP-C SCREENING HIV TEST OFFERED TO PATIENT:YES DATE OFFERED:07/03/2016 TEST ACCEPTED:NO HEP-C TEST OFFERED TO PATIENT:YES DATE OFFERED:07/03/2016 REASON:PATIENT DECLINED TEST ACCEPTED:NO REASON:PATIENT DECLINED [employer] [id number] NONE LANGUAGE LANGUAGES SPOKEN:SAMI EDUCATION LEVEL OF EDUCATION:NOT FINISHED COLLEGE LEARNING BARRIERS / SPECIAL NEEDS CHANGE FROM LAST VISIT?NO BARRIERS TO LEARNING?NO HEARING IMPAIRED?NO VISION IMPAIRED?YES COGNITIVELY IMPAIRED?NO :CORRECTIVE LENSES READINESS TO LEARN?YES LEARNING PREFERENCES?NO LEARNING CAPABILITIES PRESENT?YES EMOTIONAL BARRIERS?NO SPECIAL DEVICES?NO CORRECTIONAL COUNSELOR/CASE MANAGER NEEDED?NO DOMESTIC VIOLENCE DO YOU FEEL SAFE IN YOUR ENVIRONMENT?YES 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 MARITAL STATUS: SINGLE. PAIN CLINIC PFS, CLERGY, PUBLIC HEALTH REFERRALS WAS THE PROVIDER NOTIFIED OF ANY PERTINENT INFO? N/A HAS THE PATIENT BEEN EDUCATED REGARDING HIS/HER PLAN OF CARE?YES PROCEDURE DAY TEACHING HAS THE PATIENT BEEN EDUCATED REGARDING PAIN, THE RISK FOR PAIN, THE IMPORTANCE OF EFFECTIVE PAIN MANAGEMENT, AND THE PAIN ASSESSMENT PROCESS?YES ADVANCE DIRECTIVE ADVANCE DIRECTIVE DISCUSSED WITH PATIENT:YES HCP VIGNESH HERRON [phone] REVIEWED 12/16/17 1025 BVREVIEWED 03/31/18 1458 LASREVIEWED WITH PATIENT 07/31/18 1437 JSREVIEWED WITH PT 08/14/18 1425 BV10/22/18 REVIEWED WITH PT. AD. HOSPITALIZATION/MAJOR DIAGNOSTIC PROCEDURE RELATED TO SURGERY REVIEW OF SYSTEMS REVIEWED BY: PROVIDER: SABIHA COLLADO . CONSTITUTIONAL: ANY CHANGE IN YOUR MEDICAL CONDITION? NO . CHILLS NO . FEVER NO . INFECTION: DO YOU HAVE NEW INFECTIONS? NO . DO YOU HAVE HISTORY OF MRSA? NO . MUSCULOSKELETAL: ANY NEW PATTERNS OF PAIN OR NUMBNESS? NO . GASTROENTEROLOGY: ANY NEW CHANGE IN BOWEL CONTROL? NO . GENITOURINARY: ANY NEW CHANGE IN BLADDER CONTROL? NO . IS THERE A CHANCE YOU COULD BE ? NO . HEMATOLOGY/LYMPH: DO YOU TAKE ANY BLOOD THINNERS? (FOR EXAMPLE- COUMADIN, PLAVIX, AGGRENOX, PLATEL, PRADAXA, OR XARELTO) NO . WHEN WAS YOUR LAST DOSE? DATE: TIME: . NEUROLOGY: HAVE YOU FALLEN IN THE PAST 12 MONTHS? NO . ANY NEW EXTREMITY NUMBNESS OR WEAKNESS? NO . CARDIOLOGY: DO YOU HAVE A PACEMAKER OR DEFIBRILLATOR? NO . RESPIRATORY: HAVE YOU BEEN SICK IN THE PAST WEEK? NO . FEVER NO . FLU LIKE SYMPTOMS? NO . COUGH NO . INTEGUMENTARY: DO YOU HAVE ANY RASHES OR OPEN SORES? NO . ALLERGIC/IMMUNO: ARE YOU ALLERGIC TO IV DYE? NO . ANY NEW ALLERGIES? NO . PSYCHIATRIC: DO YOU HAVE THOUGHTS OF HURTING YOURSELF OR SOMEONE ELSE? NO . ARE YOU ABUSED, NEGLECTED, OR IN AN UNSAFE ENVIRONMENT? NO . ENDOCRINOLOGY: ARE YOU DIABETIC? NO . OTHER: DO YOU NEED ANY PRESCRIPTIONS? YES . IF YES, PLEASE LIST: NORCO . ANY NEW PROBLEMS WITH YOUR MEDICATIONS? NO . WHEN DID YOU LAST EAT? ____ . WHEN DID YOU LAST DRINK? ____ . WHAT DID YOU LAST DRINK? ____ . NAME OF PERSON DRIVING YOU HOME? ____ . DO YOU HAVE ANY OTHER QUESTIONS OR CONCERNS NO . VITAL SIGNS WT 189.2 LBS, HT 67 IN, BMI 29.63 INDEX, BP 147/87 MM HG, HR 74 /MIN, RR 18 /MIN, TEMP 97.3 F, OXYGEN SAT % 99%, SAFE IN ENV? (Y/N) Y, NA INITIALS NE 09:15, REVIEWED BY: MALU. EXAMINATION GENERAL EXAMINATION: GENERAL APPEARANCE:AWAKE,ALERT ,PLEAASANT . PSYCHAFFECT NORMAL . LUNGS:LUNG RICO ARE CLEAR TO AUSCULTATION BILATERALLY. GOOD MOVEMENT OF AIR . HEART:S1, S2 IN A REGULAR RATE AND RHYTHM. NO SIGNIFICANT MURMURS, RUBS OR GALLOPS NOTED . MUSCULOSKELETAL:TRIGGER POINTS:LEFT MID THORACIC AND RIGHT LUMBAR PARASPINALS. ASSESSMENTS MYALGIA, OTHER SITE - M79.18 (PRIMARY) TREATMENT MYALGIA, OTHER SITE NOTES: TPI BILAT. LOW BACK. PROCEDURE CODES FA211 ESTABILISHED [facility]IENT [facility] CHARGE DISPOSITION & COMMUNICATION FOLLOW UP POST (REASON: TPI BILAT. LOW BACK) ELECTRONICALLY SIGNED BY TOBIAS KABA ON 11/06/2018 AT 01:23 PM EDT DISCLAIMER : THIS IS A VISIT SUMMARY EXTRACTED FROM THE [employer] CHART. IT IS NOT A COPY OF THE [employer] PROGRESS NOTE. DOROTHEA
== END ==
LOC: M PAIN 09:30
PROVIDERS: ATTEND Nurse Practitioner Family
DX: M79.18 Myalgia, other site (principal); G43.009 Migraine without aura, not intractable, without status migrainosus; Z86.59 Personal history of other mental and behavioral disorders; Z87.891 Personal history of nicotine dependence; Z91.048 Other nonmedicinal substance allergy status; Z79.899 Other long term (current) drug therapy

== ENCOUNTER → 2018-11-12 | Outpatient (CLI) | payer OTHER ==
[~2018-11-12] MED LIST changes: +BUPIVACAINE HCL 0.25% 10 ML VIAL As Ordered ONE; +BUPIVACAINE HCL 0.25% 30 ML VIAL As Ordered ONE; +TRIAMCINOLONE ACETONIDE SUSP 40 MG/ML VIAL (J3301) As Ordered ONE; +diazePAM 5 MG TAB As Ordered ONE; +oxyCODONE 5MG TAB As Ordered ONE
--- NOTE | 2018-11-29 23:35 | ECWPNPC ---
PATIENT NAME: MIKE LAI : 1980 GENDER: FEMALE VISIT DATE: 11/12/2018 DISCHARGE DATE: 11/12/18 1542 VISIT LOCKED DATE TIME: PHYSICIAN: CATHY QUIROGA MD RESOURCE: CATHY QUIROGA MD REASON FOR APPOINTMENT 1. TPI HISTORY OF PRESENT ILLNESS HISTORY OF PRESENT ILLNESS: PAIN THE PATIENT DESCRIBES THE PAIN... FALL RISK SCREENING: SCREENING :NO FALLS REPORTED IN THE LAST YEAR CURRENT MEDICATIONS TAKING EXCEDRIN MIGRAINE 250-250-65 MG TABLET 2 TABLETS NEEDED ORALLY EVERY 6 HRS, NOTES: A COUPLE DAYS AGO TAKING ZONISAMIDE 50 MG CAPSULE 1 CAPSULE ORALLY 1 IN A.M., 2 IN P.M., NOTES: 11-11-18 0800 TAKING NORCO 7.5-325 MG TABLET 1 TABLET NEEDED ORALLY Q8H PRN MDD3, NOTES: 11-12-18 0900 NOT-TAKING ONDANSETRON 4 MG TABLET DISPERSIBLE 1 TABLET (ODT) ON THE TONGUE AND ALLOW TO DISSOLVE ORALLY EVERY 8 HRS NEEDED FOR NAUSEA/VOMITING, NOTES: DOES NOT TAKE NOT-TAKING NAPROXEN 500 MG TABLET 1 TABLET NEEDED ORALLY EVERY 12 HRS MEDICATION LIST REVIEWED AND RECONCILED WITH THE PATIENT PAST MEDICAL HISTORY TENDONITIS- RAUL KNEE MIGRAINES URINARY STRESS INCONTINENCE ANXIETY HISTORY OF TOBACCO USE CHRONIC BILATERAL KNEE PAIN DYSPEPSIA GRANADOS BILATERAL MILD CARPAL TUNNEL ALLERGIES GOLD: NAUSEA/VOMITING - ALLERGY BLEACH: SMELL CAUSES NAUSEA/VOMITING, REDNESS AND SWELLING - ALLERGY SURGICAL HISTORY LEFT BUTTOCK ABSCESS REMOVAL RIGHT THIGH ABSCESS REMOVAL BTL 2008 ALL TEETH REMOVED FAMILY HISTORY FATHER: 58 YRS, DIAGNOSED WITH HEART DISEASE, DIABETES, HYPERTENSION MOTHER: ALIVE, FIBROMYALGIA, DRUG ABUSE, ANXIETY, DEPRESSION, PSYCHIATRIC CONDITIONS PATERNAL GRAND MOTHER: LUNG CANCER 1 BROTHER(S) - HEALTHY. 2 SON(S) - HEALTHY. SOCIAL HISTORY GENERAL: TOBACCO USE ARE YOU A:FORMER SMOKER HOW LONG HAS IT BEEN SINCE YOU LAST SMOKED?1-5 YEARS SMOKING CESSATION INFORMATION GIVEN05/10/2017 HIV / HEP-C SCREENING HIV TEST OFFERED TO PATIENT:YES DATE OFFERED:07/03/2016 TEST ACCEPTED:NO REASON:PATIENT DECLINED HEP-C TEST OFFERED TO PATIENT:YES DATE OFFERED:07/03/2016 TEST ACCEPTED:NO REASON:PATIENT DECLINED EDUCATION LEVEL OF EDUCATION:NOT FINISHED COLLEGE LANGUAGE LANGUAGES SPOKEN:SETS[place]NA DOMESTIC VIOLENCE DO YOU FEEL SAFE IN YOUR ENVIRONMENT?YES BMI CARE GOAL FOLLOW-UP ABOVE NORMAL BMI FOLLOW-UPDIETARY NEEDS EDUCATION RECREATIONAL DRUG USE DRUG USE?NO PATIENT DENIES ABUSE OR MISSUSED OF ANY MEDICATION. PATIENT DENIES USE OF ANY ILLEGAL SUBSTANCE INCLUDING MARIJUANA OR COCAINE. 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 LEARNING BARRIERS / SPECIAL NEEDS CHANGE FROM LAST VISIT?NO BARRIERS TO LEARNING?NO HEARING IMPAIRED?NO VISION IMPAIRED?YES :CORRECTIVE LENSES COGNITIVELY IMPAIRED?NO READINESS TO LEARN?YES LEARNING PREFERENCES?NO LEARNING CAPABILITIES PRESENT?YES EMOTIONAL BARRIERS?NO SPECIAL DEVICES?NO MARGIN TRIMMER NEEDED?NO PAIN CLINIC PFS, CLERGY, PUBLIC HEALTH REFERRALS WAS THE PROVIDER NOTIFIED OF ANY PERTINENT INFO? N/A HAS THE PATIENT BEEN EDUCATED REGARDING HIS/HER PLAN OF CARE?YES PROCEDURE DAY TEACHING HAS THE PATIENT BEEN EDUCATED REGARDING PAIN, THE RISK FOR PAIN, THE IMPORTANCE OF EFFECTIVE PAIN MANAGEMENT, AND THE PAIN ASSESSMENT PROCESS?YES LATEX QUESTIONNAIRE LATEX ALLERGY : HAVE YOU EVER DEVELOPED ANY TYPE OF REACTION AFTER HANDLING LATEX PRODUCTS SUCH RUBBER GLOVES, CONDOMS, DIAPHRAGMS, BALLOONS, SOCKS, OR UNDERWEAR?NO LATEX ALLERGY : HAVE YOU EVER DEVELOPED ANY TYPE OF REACTION DURING OR AFTER DENTAL APPOINTMENT, VAGINAL/RECTAL EXAMINATION, SURGICAL PROCEDURE, OR ANY OTHER EXPOSURE?NO LATEX RISK : HAVE YOU EVER HAD ANY DIFFICULTY BREATHING OR HIVES AFTER EATING OR HANDLING ANY FRUITS, OR VEGETABLES; SUCH KIWI, BANANAS, STONE FRUITS, OR CHESTNUTSNO LATEX RISK : DO YOU HAVE A PREVIOUS PERSONAL HISTORY OF MORE THAN NINE SURGERIES, SPINA BIFIDA, OR REPEATED CATHERTIZATIONS? NO LATEX RISK : ARE YOU FREQUENTLY EXPOSED TO LATEX PRODUCTS IN YOUR OCCUPATION?NO DATE ASKED : 10/08/2018 CAFFEINE CAFFEINE USE?YES HOW OFTEN AND HOW MUCH? 1-2 CUP ADVANCE DIRECTIVE ADVANCE DIRECTIVE DISCUSSED WITH PATIENT:YES HCP VIGNESH HERRON [phone] MORMONISM [id number] NONE MARITAL STATUS: SINGLE. 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 SEXUAL HX HAD SEX IN THE LAST 12 MONTHS (VAGINAL, ORAL, OR ANAL)?YES WITHMEN ONLY USE PROTECTION?NO PREVENTION STRATEGIES DISCUSSED:CONDOMS HAVE YOU EVER HAD AN STD?NO LMP:08/29/2016 REVIEWED 12/16/17 1025 BVREVIEWED 03/31/18 1458 LASREVIEWED WITH PATIENT 07/31/18 1437 JSREVIEWED WITH PT 08/14/18 1425 BV10/22/18 REVIEWED WITH PT. AD. HOSPITALIZATION/MAJOR DIAGNOSTIC PROCEDURE RELATED TO SURGERY REVIEW OF SYSTEMS REVIEWED BY: PROVIDER: . CONSTITUTIONAL: ANY CHANGE IN YOUR MEDICAL CONDITION? NO . CHILLS NO . FEVER NO . INFECTION: DO YOU HAVE NEW INFECTIONS? NO . DO YOU HAVE HISTORY OF MRSA? NO . MUSCULOSKELETAL: ANY NEW PATTERNS OF PAIN OR NUMBNESS? NO . GASTROENTEROLOGY: ANY NEW CHANGE IN BOWEL CONTROL? NO . GENITOURINARY: ANY NEW CHANGE IN BLADDER CONTROL? NO . IS THERE A CHANCE YOU COULD BE ? NO . HEMATOLOGY/LYMPH: DO YOU TAKE ANY BLOOD THINNERS? (FOR EXAMPLE- COUMADIN, PLAVIX, AGGRENOX, PLATEL, PRADAXA, OR XARELTO) NO . WHEN WAS YOUR LAST DOSE? DATE: TIME: . NEUROLOGY: HAVE YOU FALLEN IN THE PAST 12 MONTHS? NO . ANY NEW EXTREMITY NUMBNESS OR WEAKNESS? NO . CARDIOLOGY: DO YOU HAVE A PACEMAKER OR DEFIBRILLATOR? NO . RESPIRATORY: HAVE YOU BEEN SICK IN THE PAST WEEK? NO . FEVER NO . FLU LIKE SYMPTOMS? NO . COUGH NO . INTEGUMENTARY: DO YOU HAVE ANY RASHES OR OPEN SORES? NO . ALLERGIC/IMMUNO: ARE YOU ALLERGIC TO IV DYE? NO . ANY NEW ALLERGIES? NO . PSYCHIATRIC: DO YOU HAVE THOUGHTS OF HURTING YOURSELF OR SOMEONE ELSE? NO . ARE YOU ABUSED, NEGLECTED, OR IN AN UNSAFE ENVIRONMENT? NO . ENDOCRINOLOGY: ARE YOU DIABETIC? NO . OTHER: DO YOU NEED ANY PRESCRIPTIONS? NO . IF YES, PLEASE LIST: ____ . ANY NEW PROBLEMS WITH YOUR MEDICATIONS? NO . WHEN DID YOU LAST EAT? ____11-11-18 . WHEN DID YOU LAST DRINK? ____11-12-18 10 AM . WHAT DID YOU LAST DRINK? ____WATER . NAME OF PERSON DRIVING YOU HOME? ____VIGNESH HERRON . DO YOU HAVE ANY OTHER QUESTIONS OR CONCERNS NO . VITAL SIGNS WT 186.8 LBS, HT 67 IN, BMI 29.25 INDEX, BP 140/89 MM HG, HR 90 /MIN, RR 16 /MIN, TEMP 97.8 F, OXYGEN SAT % 100, SAFE IN ENV? (Y/N) YES, REVIEWED BY: LS. ASSESSMENTS MYALGIA, OTHER SITE - M79.18 (PRIMARY) PROCEDURES PN TRIGGER POINT INJECTION WITH STEROIDS PRE PROCEDURE DIAGNOSIS 1. MYALGIA 2. PAIN AT LEFT THORACIC AREA AND BILATERAL LOW BACK AREA POST PROCEDURE DIAGNOSIS 1. MYALGIA 2. PAIN AT LEFT THORACIC AREA AND BILATERAL LOW BACK AREA PROCEDURE TRIGGER POINT INJECTION AT LEFT THORACIC AREA AND BILATERAL LOW BACK AREA SURGEON DR. CATHY QUIROGA BOILERMAKER FITTER NONE ANESTHESIA LOCAL PRE PROCEDURE NOTE THE PATIENT HAS A HISTORY OF CHRONIC PAIN AT THE LEFT THORACIC AREA AND RIGHT AND LEFT LOW BACK AREA. I EVALUATE THE PATIENT AND REVIEWED THE CHART. THERE IS EVIDENCE OF BANDS OF TISSUE WITH RESTRICTION OF MOVEMENT AND PRESENCE OF TRIGGER POINT AT THE AFFECTED AREA. I WENT OVER THE RISKS, ALTERNATIVES, AND BENEFITS ASSOCIATED WITH THIS PROCEDURE. THE PATIENT WOULD LIKE TO PROCEED AND GIVE CONSENT TO PERFORMED THE PROCEDURE. THE PATIENT DENIES UNEXPLAINABLE WEIGHT LOSS, FEVER, CHILLS, OR NEW CHANGES IN URINARY OR BOWEL CONTROL DESCRIPTION OF PROCEDURE THE PATIENT WAS BROUGHT TO THE PROCEDURE ROOM AND PLACED IN THE SITTING POSITION. THE AREA WAS CLEANED WITH ALCOHOL. THE PROCEDURE WAS DONE USING ASEPTIC STERILE TECHNIQUE. I CHECKED LATERALITY AND THE LEVEL WHERE THE PROCEDURE WAS GOING TO BE PERFORMED WITH THE PATIENT AND THE SUPPORTING STAFF AT THE MOMENT OF THE TIME OUT IN THE PROCEDURE ROOM. USING A 25-GAUGE NEEDLE, TRIGGER POINTS WERE INJECTED AT THE LEFT THORACIC AREA AND RIGHT AND LEFT LOW BACK AREA WITH A TOTAL OF 40 ML OF BUPIVACAINE 0.25% AND KENALOG 40 MG. THERE WAS NO EVIDENCE OF BLOOD, PARESTHESIA OR CEREBROSPINAL FLUID DURING THE PROCEDURE. THE PATIENT WAS SENT TO THE RECOVERY ROOM. THE PATIENT WAS MOVING THE EXTREMITIES AND DOING WELL. THERE WAS NO COMPLICATION DURING THE PROCEDURE POST PROCEDURE NOTE THE PATIENT WILL BE SEEN IN A FOLLOW UP IN THE NEXT FEW WEEKS. INSTRUCTIONS WERE GIVEN, QUESTIONS WERE ANSWERED, AND THE PATIENT EXPRESSED UNDERSTANDING AND AGREES WITH THE PLAN. I, DANE SHAW, DOCUMENTED THE ABOVE INFORMATION ACTING A SCRIBE FOR DR. QUIROGA. I HAVE REVIEWED THE ABOVE DOCUMENT, WRITTEN BY DANE SHAW SCRIBGlendy AND I VERIFY THAT IT IS ACCURATE. PROCEDURE CODES 88084 INJECT TRIGGER POINTS 3/> DISPOSITION & COMMUNICATION FOLLOW UP 3 WEEKS ELECTRONICALLY SIGNED BY CATHY QUIROGA MD, MD ON 11/29/2018 AT 04:08 PM EDT DISCLAIMER : THIS IS A VISIT SUMMARY EXTRACTED FROM THE [employer] CHART. IT IS NOT A COPY OF THE [employer] PROGRESS NOTE. DOROTHEA
== END ==
LOC: M PAIN 12:45
PROVIDERS: ATTEND Anesthesiology
DX: M79.18 Myalgia, other site (principal); M54.6 Pain in thoracic spine; M54.5 Low back pain; G43.909 Migraine, unspecified, not intractable, without status migrainosus; F41.9 Anxiety disorder, unspecified; Z79.899 Other long term (current) drug therapy; Z91.09 Other allergy status, other than to drugs and biological substances; Z87.891 Personal history of nicotine dependence
CPT/HCPCS: 20553; J3301

== ENCOUNTER → 2019-01-28 | Outpatient (CLI) | payer OTHER ==
[~2019-01-28] MED LIST changes: -BUPIVACAINE HCL 0.25% 10 ML VIAL As Ordered ONE; -BUPIVACAINE HCL 0.25% 30 ML VIAL As Ordered ONE; -TRIAMCINOLONE ACETONIDE SUSP 40 MG/ML VIAL (J3301) As Ordered ONE; -diazePAM 5 MG TAB As Ordered ONE; -oxyCODONE 5MG TAB As Ordered ONE
--- NOTE | 2019-02-10 02:11 | ECWPNPC ---
PATIENT NAME: MIKE LAI : 1980 GENDER: FEMALE VISIT DATE: 01/28/2019 DISCHARGE DATE: 01/28/19 1157 VISIT LOCKED DATE TIME: PHYSICIAN: SABIHA BERNARDO RESOURCE: SABIHA BERNARDO REASON FOR APPOINTMENT 1. POST TPI HISTORY OF PRESENT ILLNESS HISTORY OF PRESENT ILLNESS: HERE FOR F/U OF CHRONIC LOW BACK AND LEG PAIN.HAD TPI TO BILATERAL LUMBAR AND LEFT THORACIC ON 11/12/18 .REPORTING NO IMPROVEMENT IN PAIN POST PROCEDURE.RATING PAIN VAS 5/10. PAIN THE PATIENT DESCRIBES THE PAIN... THE PATIENT DESCRIBES THE PAIN... FALL RISK SCREENING: SCREENING :NO FALLS REPORTED IN THE LAST YEAR CURRENT MEDICATIONS TAKING EXCEDRIN MIGRAINE 250-250-65 MG TABLET 2 TABLETS NEEDED ORALLY EVERY 6 HRS, NOTES: A COUPLE DAYS AGO TAKING ZONISAMIDE 50 MG CAPSULE 1 CAPSULE ORALLY 1 IN A.M., 2 IN P.M., NOTES: 11-11-18 0800 TAKING NORCO 7.5-325 MG TABLET 1 TABLET NEEDED ORALLY Q8H PRN MDD3, NOTES: 11-12-18 0900 NOT-TAKING ONDANSETRON 4 MG TABLET DISPERSIBLE 1 TABLET (ODT) ON THE TONGUE AND ALLOW TO DISSOLVE ORALLY EVERY 8 HRS NEEDED FOR NAUSEA/VOMITING, NOTES: DOES NOT TAKE NOT-TAKING NAPROXEN 500 MG TABLET 1 TABLET NEEDED ORALLY EVERY 12 HRS MEDICATION LIST REVIEWED AND RECONCILED WITH THE PATIENT PAST MEDICAL HISTORY TENDONITIS- RAUL KNEE MIGRAINES URINARY STRESS INCONTINENCE ANXIETY HISTORY OF TOBACCO USE CHRONIC BILATERAL KNEE PAIN DYSPEPSIA GRANADOS BILATERAL MILD CARPAL TUNNEL ALLERGIES GOLD: NAUSEA/VOMITING - ALLERGY BLEACH: SMELL CAUSES NAUSEA/VOMITING, REDNESS AND SWELLING - ALLERGY SURGICAL HISTORY LEFT BUTTOCK ABSCESS REMOVAL RIGHT THIGH ABSCESS REMOVAL BTL 2008 ALL TEETH REMOVED FAMILY HISTORY FATHER: 58 YRS, DIAGNOSED WITH DIABETES, HYPERTENSION, HEART DISEASE MOTHER: ALIVE, FIBROMYALGIA, DRUG ABUSE, ANXIETY, DEPRESSION, PSYCHIATRIC CONDITIONS PATERNAL GRAND MOTHER: LUNG CANCER 1 BROTHER(S) - HEALTHY. 2 SON(S) - HEALTHY. SOCIAL HISTORY GENERAL: TOBACCO USE ARE YOU A:FORMER SMOKER HOW LONG HAS IT BEEN SINCE YOU LAST SMOKED?1-5 YEARS SMOKING CESSATION INFORMATION GIVEN05/10/2017 HIV / HEP-C SCREENING HIV TEST OFFERED TO PATIENT:YES DATE OFFERED:07/03/2016 TEST ACCEPTED:NO REASON:PATIENT DECLINED HEP-C TEST OFFERED TO PATIENT:YES DATE OFFERED:07/03/2016 TEST ACCEPTED:NO REASON:PATIENT DECLINED EDUCATION LEVEL OF EDUCATION:NOT FINISHED COLLEGE LANGUAGE LANGUAGES SPOKEN:SAMI DOMESTIC VIOLENCE DO YOU FEEL SAFE IN YOUR ENVIRONMENT?YES BMI CARE GOAL FOLLOW-UP ABOVE NORMAL BMI FOLLOW-UPDIETARY NEEDS EDUCATION RECREATIONAL DRUG USE DRUG USE?NO PATIENT DENIES ABUSE OR MISSUSED OF ANY MEDICATION. PATIENT DENIES USE OF ANY ILLEGAL SUBSTANCE INCLUDING MARIJUANA OR COCAINE. 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 LEARNING BARRIERS / SPECIAL NEEDS CHANGE FROM LAST VISIT?NO BARRIERS TO LEARNING?NO HEARING IMPAIRED?NO VISION IMPAIRED?YES :CORRECTIVE LENSES COGNITIVELY IMPAIRED?NO READINESS TO LEARN?YES LEARNING PREFERENCES?NO LEARNING CAPABILITIES PRESENT?YES EMOTIONAL BARRIERS?NO SPECIAL DEVICES?NO GOLF COURSE ARCHITECT NEEDED?NO PAIN CLINIC PFS, CLERGY, PUBLIC HEALTH REFERRALS WAS THE PROVIDER NOTIFIED OF ANY PERTINENT INFO?YES N/A HAS THE PATIENT BEEN EDUCATED REGARDING HIS/HER PLAN OF CARE?YES PROCEDURE DAY TEACHING HAS THE PATIENT BEEN EDUCATED REGARDING PAIN, THE RISK FOR PAIN, THE IMPORTANCE OF EFFECTIVE PAIN MANAGEMENT, AND THE PAIN ASSESSMENT PROCESS?YES LATEX QUESTIONNAIRE LATEX ALLERGY : HAVE YOU EVER DEVELOPED ANY TYPE OF REACTION AFTER HANDLING LATEX PRODUCTS SUCH RUBBER GLOVES, CONDOMS, DIAPHRAGMS, BALLOONS, SOCKS, OR UNDERWEAR?NO LATEX ALLERGY : HAVE YOU EVER DEVELOPED ANY TYPE OF REACTION DURING OR AFTER DENTAL APPOINTMENT, VAGINAL/RECTAL EXAMINATION, SURGICAL PROCEDURE, OR ANY OTHER EXPOSURE?NO LATEX RISK : HAVE YOU EVER HAD ANY DIFFICULTY BREATHING OR HIVES AFTER EATING OR HANDLING ANY FRUITS, OR VEGETABLES; SUCH KIWI, BANANAS, STONE FRUITS, OR CHESTNUTSNO LATEX RISK : DO YOU HAVE A PREVIOUS PERSONAL HISTORY OF MORE THAN NINE SURGERIES, SPINA BIFIDA, OR REPEATED CATHERIZATIONS? NO LATEX RISK : ARE YOU FREQUENTLY EXPOSED TO LATEX PRODUCTS IN YOUR OCCUPATION?NO DATE ASKED : 01/28/2019 CAFFEINE CAFFEINE USE?YES HOW OFTEN AND HOW MUCH? 1-2 CUP ADVANCE DIRECTIVE ADVANCE DIRECTIVE DISCUSSED WITH PATIENT:YES HCP VIGNESH HERRON [phone] SABIANIST [id number] NONE MARITAL STATUS: SINGLE. 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 SEXUAL HX HAD SEX IN THE LAST 12 MONTHS (VAGINAL, ORAL, OR ANAL)?YES WITHMEN ONLY USE PROTECTION?NO PREVENTION STRATEGIES DISCUSSED:CONDOMS HAVE YOU EVER HAD AN STD?NO LMP:08/29/2016 REVIEWED 12/16/17 1025 BVREVIEWED 03/31/18 1458 LASREVIEWED WITH PATIENT 07/31/18 1437 JSREVIEWED WITH PT 08/14/18 1425 BV10/22/18 REVIEWED WITH PT. AD. HOSPITALIZATION/MAJOR DIAGNOSTIC PROCEDURE RELATED TO SURGERY REVIEW OF SYSTEMS REVIEWED BY: PROVIDER: SABIHA COLLADO . CONSTITUTIONAL: ANY CHANGE IN YOUR MEDICAL CONDITION? NO . CHILLS NO . FEVER NO . INFECTION: DO YOU HAVE NEW INFECTIONS? NO . DO YOU HAVE HISTORY OF MRSA? NO . MUSCULOSKELETAL: ANY NEW PATTERNS OF PAIN OR NUMBNESS? NO . GASTROENTEROLOGY: ANY NEW CHANGE IN BOWEL CONTROL? NO . GENITOURINARY: ANY NEW CHANGE IN BLADDER CONTROL? NO . IS THERE A CHANCE YOU COULD BE ? NO . HEMATOLOGY/LYMPH: DO YOU TAKE ANY BLOOD THINNERS? (FOR EXAMPLE- COUMADIN, PLAVIX, AGGRENOX, PLATEL, PRADAXA, OR XARELTO) NO . WHEN WAS YOUR LAST DOSE? DATE: TIME: . NEUROLOGY: HAVE YOU FALLEN IN THE PAST 12 MONTHS? NO . ANY NEW EXTREMITY NUMBNESS OR WEAKNESS? NO . CARDIOLOGY: DO YOU HAVE A PACEMAKER OR DEFIBRILLATOR? NO . RESPIRATORY: HAVE YOU BEEN SICK IN THE PAST WEEK? NO . FEVER NO . FLU LIKE SYMPTOMS? NO . COUGH NO . INTEGUMENTARY: DO YOU HAVE ANY RASHES OR OPEN SORES? NO . ALLERGIC/IMMUNO: ARE YOU ALLERGIC TO IV DYE? NO . ANY NEW ALLERGIES? NO . PSYCHIATRIC: DO YOU HAVE THOUGHTS OF HURTING YOURSELF OR SOMEONE ELSE? NO . ARE YOU ABUSED, NEGLECTED, OR IN AN UNSAFE ENVIRONMENT? NO . ENDOCRINOLOGY: ARE YOU DIABETIC? NO . OTHER: DO YOU NEED ANY PRESCRIPTIONS? YES NORCO . IF YES, PLEASE LIST: ____ . ANY NEW PROBLEMS WITH YOUR MEDICATIONS? NO . WHEN DID YOU LAST EAT? ____ . WHEN DID YOU LAST DRINK? ____ . WHAT DID YOU LAST DRINK? ____ . NAME OF PERSON DRIVING YOU HOME? ____ . DO YOU HAVE ANY OTHER QUESTIONS OR CONCERNS NO . VITAL SIGNS WT 191.8 LBS, HT 67 IN, BMI 30.04 INDEX, BP 171/81 MM HG, HR 79 /MIN, RR 18 /MIN, TEMP 96.8 F, OXYGEN SAT % 99%, SAFE IN ENV? (Y/N) Y, NA INITIALS LA 11:19, REVIEWED BY: NIDA. EXAMINATION GENERAL EXAMINATION: GENERALAWAKE,ALERT ,PLEAASANT . PSYCHAFFECT NORMAL . LUNGS:LUNG RICO ARE CLEAR TO AUSCULTATION BILATERALLY. GOOD MOVEMENT OF AIR . HEART:S1, S2 IN A REGULAR RATE AND RHYTHM. NO SIGNIFICANT MURMURS, RUBS OR GALLOPS NOTED . ASSESSMENTS PROTRUSION OF LUMBAR INTERVERTEBRAL DISC - M51.26 (PRIMARY) TREATMENT PROTRUSION OF LUMBAR INTERVERTEBRAL DISC REFILL NORCO TABLET, 7.5-325 MG, 1 TABLET NEEDED, ORALLY, Q8H PRN MDD3, 30 DAY(S), 45, REFILLS 0, NOTES: 11-12-18 0900 NOTES: ISTOP REGISTRY REVIEWED AND DEMONSTRATES COMPLLIANCE. BRINGS IN MEDICATIONS WHICH IS APPROPRIATE FOR WHAT WAS DISPENSED. RECENT URINE TOXICOLOGY REVIEWED. NO UNAUTHORIZED MEDICATIONS. NO ILLICIT SUBSTANCES AND PRESCRIBED MEDICATIONS WERE PRESENT. URINE TOX TODAY, RISKS AND BENEFITS OF NARCOTIC/OPIOD MEDICATIONS WERE REVIEWED WITH PATIENT - THIS INCLUDES BUT IS NOT LIMITED TO RISK OF DEPENDANCE/DEVELOPMENT OF ADDICTION, MOOD DISTURBANCE AND DEPRESSION, OSTEOPOROSIS, HORMONAL AND LABIDAL CHANGES, RESPIRATORY DEPRESSION AND . PATIENT IS ADVISED NOT TO DRIVE OR DRINK ALCOHOL WHILE ON THESE MEDICATIONS. PROCEDURE CODES FA211 ESTABILISHED PATIENT [facility] CHARGE DISPOSITION & COMMUNICATION FOLLOW UP 2 MONTHS (REASON: MED MGMNT) ELECTRONICALLY SIGNED BY TOBIAS KABA ON 02/09/2019 AT 03:52 PM EDT DISCLAIMER : THIS IS A VISIT SUMMARY EXTRACTED FROM THE [employer] CHART. IT IS NOT A COPY OF THE [employer] PROGRESS NOTE. DOROTHEA
== END ==
LOC: M PAIN 11:00
PROVIDERS: ATTEND Nurse Practitioner Family
DX: M51.26 Other intervertebral disc displacement, lumbar region (principal); G89.29 Other chronic pain; G43.909 Migraine, unspecified, not intractable, without status migrainosus; Z86.59 Personal history of other mental and behavioral disorders; Z87.891 Personal history of nicotine dependence; Z91.09 Other allergy status, other than to drugs and biological substances; Z79.899 Other long term (current) drug therapy

== ENCOUNTER → 2019-04-07 | Outpatient (CLI) | payer OTHER | LOC: M PAIN 10:00 | PROVIDERS: ATTEND Nurse Practitioner Family | DX: M47.816 Spondylosis without myelopathy or radiculopathy, lumbar region (principal); M54.5 Low back pain; M79.604 Pain in right leg; M79.605 Pain in left leg; Z79.891 Long term (current) use of opiate analgesic ==

== ENCOUNTER → 2019-05-14 | Outpatient (CLI) | payer OTHER ==
[~2019-05-14] MED LIST changes: +BUPIVACAINE HCL 0.25% 30 ML VIAL As Ordered ONE; +ISOVUE-M 300 61% 15ML VIAL (Q9967) As Ordered ONE; +LIDOCAINE 1% SDV INJ 30 ML VIAL As Ordered ONE
--- NOTE | 2019-05-14 10:51 | REP ---
Partial lumbar spine series: Four views . History: Injection procedure for pain. 36 seconds of fluoroscopy time is reported. Findings: A sequence of four fluoroscopically obtained last image hold procedural spot radiographs of the lumbar spine document needle position and contrast injection associated with injection procedure. Electronically Signed by Obed Langston MD 05/14/2019 10:43 A
--- NOTE | 2019-05-27 02:41 | ECWPNPC ---
PATIENT NAME: MIKE LAI : 1980 GENDER: FEMALE VISIT DATE: 05/14/2019 DISCHARGE DATE: 05/14/19 1027 VISIT LOCKED DATE TIME: PHYSICIAN: CATHY QUIROGA MD RESOURCE: CATHY QUIROGA MD REASON FOR APPOINTMENT 1. BILAT. L4/5-L5/S1 LFB DX HISTORY OF PRESENT ILLNESS HISTORY OF PRESENT ILLNESS: PAIN THE PATIENT DESCRIBES THE PAIN... FALL RISK SCREENING: SCREENING :NO FALLS REPORTED IN THE LAST YEAR CURRENT MEDICATIONS TAKING EXCEDRIN MIGRAINE 250-250-65 MG TABLET 2 TABLETS NEEDED ORALLY EVERY 6 HRS, NOTES: NOT LATELY TAKING NORCO 7.5-325 MG TABLET 1 TABLET NEEDED ORALLY Q8H PRN MDD3, NOTES: 05-13-19 1530 NOT-TAKING ZONISAMIDE 50 MG CAPSULE 1 CAPSULE ORALLY 1 IN A.M., 2 IN P.M. NOT-TAKING ONDANSETRON 4 MG TABLET DISPERSIBLE 1 TABLET (ODT) ON THE TONGUE AND ALLOW TO DISSOLVE ORALLY EVERY 8 HRS NEEDED FOR NAUSEA/VOMITING NOT-TAKING NAPROXEN 500 MG TABLET 1 TABLET NEEDED ORALLY EVERY 12 HRS MEDICATION LIST REVIEWED AND RECONCILED WITH THE PATIENT PAST MEDICAL HISTORY TENDONITIS- RAUL KNEE MIGRAINES URINARY STRESS INCONTINENCE ANXIETY HISTORY OF TOBACCO USE CHRONIC BILATERAL KNEE PAIN DYSPEPSIA GRANADOS BILATERAL MILD CARPAL TUNNEL ALLERGIES GOLD: RASH - ALLERGY BLEACH: SMELL CAUSES NAUSEA/VOMITING, REDNESS AND SWELLING SURGICAL HISTORY LEFT BUTTOCK ABSCESS REMOVAL RIGHT THIGH ABSCESS REMOVAL BTL 2008 ALL TEETH REMOVED FAMILY HISTORY FATHER: 58 YRS, DIAGNOSED WITH DIABETES, HYPERTENSION, UNSPECIFIED HEART DISEASE MOTHER: ALIVE, FIBROMYALGIA, DRUG ABUSE, ANXIETY, DEPRESSION, UNSPECIFIED 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 2 SON(S) - HEALTHY. SOCIAL HISTORY GENERAL: TOBACCO USE ARE YOU A:FORMER SMOKER HOW LONG HAS IT BEEN SINCE YOU LAST SMOKED?1-5 YEARS SMOKING CESSATION INFORMATION GIVEN05/10/2017 HIV / HEP-C SCREENING HIV TEST OFFERED TO PATIENT:YES DATE OFFERED:07/03/2016 TEST ACCEPTED:NO HEP-C TEST OFFERED TO PATIENT:YES DATE OFFERED:07/03/2016 REASON:PATIENT DECLINED TEST ACCEPTED:NO REASON:PATIENT DECLINED OTHERS AT HOME: CHILD, OTHER NON-RELATIVE. EDUCATION LEVEL OF EDUCATION:NOT FINISHED COLLEGE DIET: REGULAR. LANGUAGE LANGUAGES SPOKEN:TURKMEN DOMESTIC VIOLENCE DO YOU FEEL SAFE IN YOUR ENVIRONMENT?YES BMI CARE GOAL FOLLOW-UP ABOVE NORMAL BMI FOLLOW-UPDIETARY NEEDS EDUCATION RECREATIONAL DRUG USE DRUG USE?NO PATIENT DENIES ABUSE OR MISSUSED OF ANY MEDICATION. PATIENT DENIES USE OF ANY ILLEGAL SUBSTANCE INCLUDING MARIJUANA OR COCAINE. 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 LEARNING BARRIERS / SPECIAL NEEDS CHANGE FROM LAST VISIT?NO BARRIERS TO LEARNING?NO HEARING IMPAIRED?NO VISION IMPAIRED?YES :CORRECTIVE LENSES COGNITIVELY IMPAIRED?NO READINESS TO LEARN?YES LEARNING PREFERENCES?NO LEARNING CAPABILITIES PRESENT?YES EMOTIONAL BARRIERS?NO SPECIAL DEVICES?NO ELECTROMEDICAL EQUIPMENT TECHNICIAN NEEDED?NO PAIN CLINIC PFS, CLERGY, PUBLIC HEALTH REFERRALS WAS THE PROVIDER NOTIFIED OF ANY PERTINENT INFO? N/A HAS THE PATIENT BEEN EDUCATED REGARDING HIS/HER PLAN OF CARE?YES HAS THE PATIENT BEEN EDUCATED REGARDING PAIN, THE RISK FOR PAIN, THE IMPORTANCE OF EFFECTIVE PAIN MANAGEMENT, AND THE PAIN ASSESSMENT PROCESS?YES LATEX QUESTIONNAIRE LATEX ALLERGY : HAVE YOU EVER DEVELOPED ANY TYPE OF REACTION AFTER HANDLING LATEX PRODUCTS SUCH RUBBER GLOVES, CONDOMS, DIAPHRAGMS, BALLOONS, SOCKS, OR UNDERWEAR?NO LATEX ALLERGY : HAVE YOU EVER DEVELOPED ANY TYPE OF REACTION DURING OR AFTER DENTAL APPOINTMENT, VAGINAL/RECTAL EXAMINATION, SURGICAL PROCEDURE, OR ANY OTHER EXPOSURE?NO LATEX RISK : HAVE YOU EVER HAD ANY DIFFICULTY BREATHING OR HIVES AFTER EATING OR HANDLING ANY FRUITS, OR VEGETABLES; SUCH KIWI, BANANAS, STONE FRUITS, OR CHESTNUTSNO LATEX RISK : DO YOU HAVE A PREVIOUS PERSONAL HISTORY OF MORE THAN NINE SURGERIES, SPINA BIFIDA, OR REPEATED CATHERIZATIONS? NO LATEX RISK : ARE YOU FREQUENTLY EXPOSED TO LATEX PRODUCTS IN YOUR OCCUPATION?NO DATE ASKED : 05/14/2019 CAFFEINE CAFFEINE USE?YES HOW OFTEN AND HOW MUCH? 1-2 CUP ADVANCE DIRECTIVE ADVANCE DIRECTIVE DISCUSSED WITH PATIENT:YES HCP VIGNESH HERRON [phone] AMISH [id number] NONE MARITAL STATUS: SINGLE. 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 SEXUAL HX HAD SEX IN THE LAST 12 MONTHS (VAGINAL, ORAL, OR ANAL)?YES WITHMEN ONLY PREVENTION STRATEGIES DISCUSSED:CONDOMS USE PROTECTION?NO LMP:08/29/2016 HAVE YOU EVER HAD AN STD?NO REVIEWED 12/16/17 1025 BVREVIEWED 03/31/18 1458 LASREVIEWED WITH PATIENT 07/31/18 1437 JSREVIEWED WITH PT 08/14/18 1425 BV10/22/18 REVIEWED WITH PT. AD05/14/19 0904 REVIEWED WITH PT. ADRYAIEWED WITH PT 04/07/19 0954 NLJ. HOSPITALIZATION/MAJOR DIAGNOSTIC PROCEDURE RELATED TO SURGERY REVIEW OF SYSTEMS REVIEWED BY: PROVIDER: . CONSTITUTIONAL: ANY CHANGE IN YOUR MEDICAL CONDITION? NO . CHILLS NO . FEVER NO . INFECTION: DO YOU HAVE NEW INFECTIONS? NO . DO YOU HAVE HISTORY OF MRSA? NO . MUSCULOSKELETAL: ANY NEW PATTERNS OF PAIN OR NUMBNESS? NO . GASTROENTEROLOGY: ANY NEW CHANGE IN BOWEL CONTROL? NO . GENITOURINARY: ANY NEW CHANGE IN BLADDER CONTROL? NO . IS THERE A CHANCE YOU COULD BE ? NO . HEMATOLOGY/LYMPH: DO YOU TAKE ANY BLOOD THINNERS? (FOR EXAMPLE- COUMADIN, PLAVIX, AGGRENOX, PLATEL, PRADAXA, OR XARELTO) NO . WHEN WAS YOUR LAST DOSE? DATE: TIME: . NEUROLOGY: HAVE YOU FALLEN IN THE PAST 12 MONTHS? NO . ANY NEW EXTREMITY NUMBNESS OR WEAKNESS? NO . CARDIOLOGY: DO YOU HAVE A PACEMAKER OR DEFIBRILLATOR? NO . RESPIRATORY: HAVE YOU BEEN SICK IN THE PAST WEEK? NO . FEVER NO . FLU LIKE SYMPTOMS? NO . COUGH NO . INTEGUMENTARY: DO YOU HAVE ANY RASHES OR OPEN SORES? NO . ALLERGIC/IMMUNO: ARE YOU ALLERGIC TO IV DYE? NO . ANY NEW ALLERGIES? NO . PSYCHIATRIC: DO YOU HAVE THOUGHTS OF HURTING YOURSELF OR SOMEONE ELSE? NO . ARE YOU ABUSED, NEGLECTED, OR IN AN UNSAFE ENVIRONMENT? NO . ENDOCRINOLOGY: ARE YOU DIABETIC? NO . OTHER: DO YOU NEED ANY PRESCRIPTIONS? NO . IF YES, PLEASE LIST: ____ . ANY NEW PROBLEMS WITH YOUR MEDICATIONS? NO . WHEN DID YOU LAST EAT? 05/13 1600 . WHEN DID YOU LAST DRINK? 05/13 2200 . WHAT DID YOU LAST DRINK? SODA . NAME OF PERSON DRIVING YOU HOME? ____ . DO YOU HAVE ANY OTHER QUESTIONS OR CONCERNS NO . VITAL SIGNS WT 189.4 LBS, HT 67 IN, BMI 29.66 INDEX, BP 147/81 MM HG, HR 78 /MIN, RR 18 /MIN, TEMP 97.6 F, OXYGEN SAT % 97%, SAFE IN ENV? (Y/N) Y, NA INITIALS AW 0848, REVIEWED BY: KG. ASSESSMENTS SPONDYLOSIS WITHOUT MYELOPATHY OR RADICULOPATHY, LUMBAR REGION - M47.816 (PRIMARY) SPONDYLOSIS OF LUMBOSACRAL JOINT - M47.817 TREATMENT SPONDYLOSIS OF LUMBOSACRAL JOINT SMC FACET BLOCK (PAIN)[id number] PROCEDURES PN LUMBAR FACET BLOCK DIAGNOSTIC PRE PROCEDURE DIAGNOSIS LUMBAR SPONDYLOSIS, LUMBOSACRAL SPONDYLOSIS POST PROCEDURE DIAGNOSIS LUMBAR SPONDYLOSIS, LUMBOSACRAL SPONDYLOSIS PROCEDURE BILATERAL L4-L5 AND L5-S1 FACET BLOCK DIAGNOSTIC NUMBER [address] CATHY QUIROGA SLIVER LAP TENDER NONE ANESTHESIA LOCAL PRE PROCEDURE NOTE THE PATIENT WITH HISTORY OF CHRONIC LOW BACK PAIN. I EVALUATED THE PATIENT AND REVIEWED THE CHART. I WENT OVER THE RISKS, ALTERNATIVES, AND BENEFITS ASSOCIATED WITH THIS PROCEDURE. THE PATIENT WOULD LIKE TO PROCEED AND GAVE CONSENT TO PERFORM THE PROCEDURE. AGREED WITH THE PATIENT WE ARE DOING THIS PROCEDURE TO DETERMINE IF THE PATIENT IS A CANDIDATE FOR A RADIOFREQUENCY ABLATION OF THE FACETS JOINTS. THE PATIENT DENIES UNEXPLAINABLE WEIGHT LOSS, FEVER, CHILLS, OR NEW CHANGES IN URINARY OR BOWEL CONTROL DESCRIPTION OF PROCEDURE THE PATIENT WAS BROUGHT TO THE PROCEDURE ROOM AND PLACED IN THE PRONE POSITION. THE LUMBOSACRAL AREA WAS CLEANED WITH CHLORAPREP SOLUTION AND DRAPED ASEPTICALLY. THE PROCEDURE WAS DONE UNDER STERILE CONDITIONS. I CHECKED LATERALITY AND THE LEVEL WHERE THE PROCEDURE WAS GOING TO BE PERFORMED WITH THE PATIENT AND THE SUPPORTING STAFF AT THE MOMENT OF THE TIME OUT IN THE PROCEDURE ROOM. UNDER FLUOROSCOPIC GUIDANCE, TARGETS WERE SELECTED AT THE INTERSECTION OF THE RIGHT AND LEFT TRANSVERSE PROCESS OF L4, L5 AND ALA OF S1 WITH ITS RESPECTIVE SUPERIOR ARTICULAR PROCESS. LIDOCAINE WAS USED TO NUMB THE SKIN AND THE SUBCUTANEOUS TISSUE BELOW IT. SPINAL NEEDLE, 22-GAUGE WAS ADVANCED UNDER FLUOROSCOPIC GUIDANCE AND FOLLOWING PATIENT FEEDBACK UNTIL THE TARGETS WERE REACHED. POSITION OF THE NEEDLES WAS VERIFIED WITH AP AND LATERAL VIEWS. AFTER PROPER POSITION OF THE NEEDLES WAS ACHIEVED, ISOVUE-M DYE 30% 0.1 ML WAS INJECTED AT EACH SITE SHOWING ADEQUATE SPREAD OF THE DYE. THEN A SOLUTION OF 0.4 ML OF BUPIVACAINE 0.25% WAS INJECTED AT EACH SITE. THERE WAS NO EVIDENCE OF BLOOD, PARESTHESIA OR CEREBROSPINAL FLUID DURING THE PROCEDURE. THE PATIENT WAS SENT TO THE RECOVERY ROOM. THE PATIENT WAS MOVING THE EXTREMITIES AND DOING WELL. THERE WAS NO COMPLICATION DURING THE PROCEDURE. FLUOROSCOPY TIME WAS 36 SECONDS POST PROCEDURE NOTE THE PATIENT WILL DOCUMENT HIS PAIN LEVEL AND RESPONSE TO THIS PROCEDURE EVERY 30 MINUTES. THE PATIENT WILL BE SEEN IN A FOLLOW UP IN THE NEXT FEW WEEKS. FURTHER DETERMINATION FOR HIS CASE WILL BE DONE AT THE NEXT VISIT. INSTRUCTIONS WERE GIVEN, QUESTIONS WERE ANSWERED, AND THE PATIENT EXPRESSED UNDERSTANDING AND AGREED WITH THE PLAN. I, JOSE SCHWARZ, DOCUMENTED THE ABOVE INFORMATION ACTING A SCRIBE FOR DR. QUIROGA. I HAVE REVIEWED THE ABOVE DOCUMENT, WRITTEN BY JOSE SCHWARZ SCRIBE AND I VERIFY THAT IT IS ACCURATE. PROCEDURE CODES 12538 INJ PARAVERT F JNT L/S 1 LEV, MODIFIERS: 50 [id number] INJ PARAVERT F JNT L/S 2 LEV, MODIFIERS: 50 [id number] RADXPS IN END [id number] PXD DISPOSITION & COMMUNICATION FOLLOW UP 3 WEEKS ELECTRONICALLY SIGNED BY CATHY QUIROGA MD, MD ON 05/26/2019 AT 01:29 PM EST DISCLAIMER : THIS IS A VISIT SUMMARY EXTRACTED FROM THE [employer] CHART. IT IS NOT A COPY OF THE [employer] PROGRESS NOTE. MTDD
== END ==
LOC: M PAIN 08:45
PROVIDERS: ATTEND Anesthesiology
DX: M47.816 Spondylosis without myelopathy or radiculopathy, lumbar region (principal); M47.817 Spondylosis without myelopathy or radiculopathy, lumbosacral region; F41.9 Anxiety disorder, unspecified; Z87.891 Personal history of nicotine dependence; K75.81 Nonalcoholic steatohepatitis (NASH); Z91.048 Other nonmedicinal substance allergy status
CPT/HCPCS: 64493; 64494; Q9967

== ENCOUNTER → 2019-05-20 | Outpatient (REF) | payer OTHER ==
[~2019-05-20] MED LIST changes: -BUPIVACAINE HCL 0.25% 30 ML VIAL As Ordered ONE; -ISOVUE-M 300 61% 15ML VIAL (Q9967) As Ordered ONE; -LIDOCAINE 1% SDV INJ 30 ML VIAL As Ordered ONE
[2019-05-20 11:12] LABS: ALBUMIN 3.7 GM/DL (3.2-5.2); ALT/SGPT 52 U/L (12-78); BILIRUBIN,TOTAL 0.3 MG/DL (0.2-1.0); BLOOD UREA NITROGEN 13 MG/DL (7-18); CALCIUM LEVEL 9.3 MG/DL (8.5-10.1); CARBON DIOXIDE LEVEL 28 MEQ/L (21-32); CHLORIDE LEVEL 107 MEQ/L (98-107); CHOLESTEROL LEVEL 174 MG/DL (<200); CHOLESTEROL RISK RATIO 4.461 (<5); CREATININE FOR GFR 0.85 MG/DL (0.55-1.30); GLOMERULAR FILTRATION RATE > 60.0 (>58); GLUCOSE, FASTING 83 MG/DL (70-100); HDL CHOLESTEROL 39 MG/DL (>40); LDL CHOLESTEROL 97 MG/DL (<100); NON-HDL-C 135 MG/DL; POTASSIUM SERUM 4.4 MEQ/L (3.5-5.1); SODIUM LEVEL 139 MEQ/L (136-145); TOTAL PROTEIN 7.6 GM/DL (6.4-8.2); TRIGLYCERIDES LEVEL 192 MG/DL (<150)
== END ==
LOC: M SFHCPLAZ 08:35
PROVIDERS: ATTEND Family Medicine
DX: Z13.220 Encounter for screening for lipoid disorders (principal); Z13.1 Encounter for screening for diabetes mellitus

== ENCOUNTER → 2019-06-11 | Outpatient (CLI) | payer OTHER ==
--- NOTE | 2019-06-30 04:55 | ECWPNPC ---
PATIENT NAME: MIKE LAI : 1980 GENDER: FEMALE VISIT DATE: 06/11/2019 DISCHARGE DATE: 06/11/19 1031 VISIT LOCKED DATE TIME: PHYSICIAN: SABIHA BERNARDO RESOURCE: SABIHA BERNARDO REASON FOR APPOINTMENT 1. POST PROC HISTORY OF PRESENT ILLNESS HISTORY OF PRESENT ILLNESS: HERE FOR POST PROCEDURE F/U.HAD BILAT. LFBDX ON 05/14/19.REPORTING NO SIGNIFICANT PAIN REDUCTION POST PROCEDURE.PAIN RANGES BETWEEN 2-10/10VAS.CHIEF AREA OF PAIN IS BILATERAL KNEES AND LOW BACK/LEFT LEG.PAIN IS AGGREVATED WITH PROLONGED STANDING REQUIRED AT HER JOB.FINDS HYDROCODONE HELPFUL AT REDUCING PAIN AND KEEPING HER ABLE TO WORK AT HER JOB DAILY.REVIEWED MRI AND DISCUSSED TREATMENT OPTIONS. PAIN THE PATIENT DESCRIBES THE PAIN... FALL RISK SCREENING: SCREENING :NO FALLS REPORTED IN THE LAST YEAR CURRENT MEDICATIONS TAKING EXCEDRIN MIGRAINE 250-250-65 MG TABLET 2 TABLETS NEEDED ORALLY EVERY 6 HRS TAKING FLUTICASONE PROPIONATE 50 MCG/ACT SUSPENSION 1 SPRAY IN EACH NOSTRIL NASALLY ONCE A DAY TAKING NORCO 7.5-325 MG TABLET 1 TABLET NEEDED ORALLY Q8H PRN MDD3 NOT-TAKING ZYRTEC ALLERGY 10 MG TABLET 1 TABLET ORALLY ONCE A DAY MEDICATION LIST REVIEWED AND RECONCILED WITH THE PATIENT PAST MEDICAL HISTORY TENDONITIS- RAUL KNEE MIGRAINES URINARY STRESS INCONTINENCE ANXIETY, ?PTSD HISTORY OF TOBACCO USE DYSPEPSIA GRANADOS BILATERAL CARPAL TUNNEL SYNDROME CHRONIC BACK PAIN, LUMBAR DDD WITH RADICULOPATHY ALLERGIES GOLD: RASH - ALLERGY BLEACH: SMELL CAUSES NAUSEA/VOMITING, REDNESS AND SWELLING SURGICAL HISTORY LEFT BUTTOCK ABSCESS REMOVAL RIGHT THIGH ABSCESS REMOVAL BTL 2008 ALL TEETH REMOVED FAMILY HISTORY FATHER: 58 YRS, DIAGNOSED WITH UNSPECIFIED HEART DISEASE, DIABETES, HYPERTENSION MOTHER: ALIVE, FIBROMYALGIA, DRUG ABUSE, ANXIETY, DEPRESSION, UNSPECIFIED 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 2 SON(S) - HEALTHY. SOCIAL HISTORY GENERAL: TOBACCO USE ARE YOU A:FORMER SMOKER HOW LONG HAS IT BEEN SINCE YOU LAST SMOKED?1-5 YEARS SMOKING CESSATION INFORMATION GIVEN05/10/2017 HIV / HEP-C SCREENING HIV TEST OFFERED TO PATIENT:YES DATE OFFERED:07/03/2016 TEST ACCEPTED:NO HEP-C TEST OFFERED TO PATIENT:YES DATE OFFERED:07/03/2016 REASON:PATIENT DECLINED TEST ACCEPTED:NO REASON:PATIENT DECLINED OTHERS AT HOME: CHILD, OTHER NON-RELATIVE. EDUCATION LEVEL OF EDUCATION:NOT FINISHED COLLEGE DIET: REGULAR. LANGUAGE LANGUAGES SPOKEN:DIVEHI DOMESTIC VIOLENCE DO YOU FEEL SAFE IN YOUR ENVIRONMENT?YES BMI CARE GOAL FOLLOW-UP ABOVE NORMAL BMI FOLLOW-UPDIETARY NEEDS EDUCATION RECREATIONAL DRUG USE DRUG USE?NO PATIENT DENIES ABUSE OR MISSUSED OF ANY MEDICATION. PATIENT DENIES USE OF ANY ILLEGAL SUBSTANCE INCLUDING MARIJUANA OR COCAINE. 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 LEARNING BARRIERS / SPECIAL NEEDS CHANGE FROM LAST VISIT?NO BARRIERS TO LEARNING?NO HEARING IMPAIRED?NO VISION IMPAIRED?YES COGNITIVELY IMPAIRED?NO :CORRECTIVE LENSES READINESS TO LEARN?YES LEARNING PREFERENCES?NO LEARNING CAPABILITIES PRESENT?YES EMOTIONAL BARRIERS?NO SPECIAL DEVICES?NO OVERLOCK OPERATOR NEEDED?NO PAIN CLINIC PFS, CLERGY, PUBLIC HEALTH REFERRALS WAS THE PROVIDER NOTIFIED OF ANY PERTINENT INFO? N/A HAS THE PATIENT BEEN EDUCATED REGARDING HIS/HER PLAN OF CARE?YES HAS THE PATIENT BEEN EDUCATED REGARDING PAIN, THE RISK FOR PAIN, THE IMPORTANCE OF EFFECTIVE PAIN MANAGEMENT, AND THE PAIN ASSESSMENT PROCESS?YES LATEX QUESTIONNAIRE LATEX ALLERGY : HAVE YOU EVER DEVELOPED ANY TYPE OF REACTION AFTER HANDLING LATEX PRODUCTS SUCH RUBBER GLOVES, CONDOMS, DIAPHRAGMS, BALLOONS, SOCKS, OR UNDERWEAR?NO LATEX ALLERGY : HAVE YOU EVER DEVELOPED ANY TYPE OF REACTION DURING OR AFTER DENTAL APPOINTMENT, VAGINAL/RECTAL EXAMINATION, SURGICAL PROCEDURE, OR ANY OTHER EXPOSURE?NO LATEX RISK : HAVE YOU EVER HAD ANY DIFFICULTY BREATHING OR HIVES AFTER EATING OR HANDLING ANY FRUITS, OR VEGETABLES; SUCH KIWI, BANANAS, STONE FRUITS, OR CHESTNUTSNO LATEX RISK : DO YOU HAVE A PREVIOUS PERSONAL HISTORY OF MORE THAN NINE SURGERIES, SPINA BIFIDA, OR REPEATED CATHERIZATIONS? NO LATEX RISK : ARE YOU FREQUENTLY EXPOSED TO LATEX PRODUCTS IN YOUR OCCUPATION?NO DATE ASKED : 05/14/2019 CAFFEINE CAFFEINE USE?YES HOW OFTEN AND HOW MUCH? 1-2 CUP ADVANCE DIRECTIVE ADVANCE DIRECTIVE DISCUSSED WITH PATIENT:YES HCP VIGNESH HERRON [phone] SABIANIST [id number] NONE MARITAL STATUS: SINGLE. 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 SEXUAL HX HAD SEX IN THE LAST 12 MONTHS (VAGINAL, ORAL, OR ANAL)?YES WITHMEN ONLY PREVENTION STRATEGIES DISCUSSED:CONDOMS USE PROTECTION?NO LMP:08/29/2016 HAVE YOU EVER HAD AN STD?NO REVIEWED 12/16/17 1025 BVREVIEWED 03/31/18 1458 LASREVIEWED WITH PATIENT 07/31/18 1437 JSREVIEWED WITH PT 08/14/18 1425 BV10/22/18 REVIEWED WITH PT. AD05/14/19 0904 REVIEWED WITH PT. ADREVIEWED WITH PT 04/07/19 0954 NLJREVIEWED WITH PATIENT 06/11/19 0940 JS. HOSPITALIZATION/MAJOR DIAGNOSTIC PROCEDURE RELATED TO SURGERY REVIEW OF SYSTEMS REVIEWED BY: PROVIDER: SABIHA COLLADO . CONSTITUTIONAL: ANY CHANGE IN YOUR MEDICAL CONDITION? NO . CHILLS NO . FEVER NO . INFECTION: DO YOU HAVE NEW INFECTIONS? NO . DO YOU HAVE HISTORY OF MRSA? NO . MUSCULOSKELETAL: ANY NEW PATTERNS OF PAIN OR NUMBNESS? NO . GASTROENTEROLOGY: ANY NEW CHANGE IN BOWEL CONTROL? NO . GENITOURINARY: ANY NEW CHANGE IN BLADDER CONTROL? NO . IS THERE A CHANCE YOU COULD BE ? NO . HEMATOLOGY/LYMPH: DO YOU TAKE ANY BLOOD THINNERS? (FOR EXAMPLE- COUMADIN, PLAVIX, AGGRENOX, PLATEL, PRADAXA, OR XARELTO) NO . WHEN WAS YOUR LAST DOSE? DATE: TIME: . NEUROLOGY: HAVE YOU FALLEN IN THE PAST 12 MONTHS? NO . ANY NEW EXTREMITY NUMBNESS OR WEAKNESS? NO . CARDIOLOGY: DO YOU HAVE A PACEMAKER OR DEFIBRILLATOR? NO . RESPIRATORY: HAVE YOU BEEN SICK IN THE PAST WEEK? NO . FEVER NO . FLU LIKE SYMPTOMS? NO . COUGH NO . INTEGUMENTARY: DO YOU HAVE ANY RASHES OR OPEN SORES? NO . ALLERGIC/IMMUNO: ARE YOU ALLERGIC TO IV DYE? NO . ANY NEW ALLERGIES? NO . PSYCHIATRIC: DO YOU HAVE THOUGHTS OF HURTING YOURSELF OR SOMEONE ELSE? NO . ARE YOU ABUSED, NEGLECTED, OR IN AN UNSAFE ENVIRONMENT? NO . ENDOCRINOLOGY: ARE YOU DIABETIC? NO . OTHER: DO YOU NEED ANY PRESCRIPTIONS? NO . IF YES, PLEASE LIST: ____ . ANY NEW PROBLEMS WITH YOUR MEDICATIONS? NO . WHEN DID YOU LAST EAT? ____ . WHEN DID YOU LAST DRINK? ____ . WHAT DID YOU LAST DRINK? ____ . NAME OF PERSON DRIVING YOU HOME? ____ . DO YOU HAVE ANY OTHER QUESTIONS OR CONCERNS NO . VITAL SIGNS WT 189.2 LBS, HT 67 IN, BMI 29.63 INDEX, BP 149/105 MM HG, REPEAT BP 132/94 MANUAL, HR 88 /MIN, RR 18 /MIN, TEMP 98.2 F, OXYGEN SAT % 96%, SAFE IN ENV? (Y/N) YES, NA INITIALS SC 09:39, REVIEWED BY: JSRN IS AWEREOF PT'S BP AND WILL RECHECK. EXAMINATION GENERAL EXAMINATION: GENERAL AWAKE,ALERT ,PLEASANT . PSYCH AFFECT NORMAL . LUNGS: LUNG RICO ARE CLEAR TO AUSCULTATION BILATERALLY. GOOD MOVEMENT OF AIR . HEART: S1, S2 IN A REGULAR RATE AND RHYTHM. NO SIGNIFICANT MURMURS, RUBS OR GALLOPS NOTED . MUSCULOSKELETAL:MILD WEAKNESS OVER BILAT. LOWER EXTREMITIES. FOR BILAT. SIJ PALPATION: + FOR PAIN OVER L/S SPINE. + FOR PAIN OVER L/S PARASPINALS POSITIVE SLE AT 45 DEGREES LEFT. NEUROLOGIC EXAM: NORMAL SENSATION LIGHT TOUCH BILAT. LOWER EXTREMITIES. DIAGNOSTIC TESTS REVIEWED MRI L/S SPINE-08/20/18. ASSESSMENTS INTERVERTEBRAL DISC DISORDER WITH RADICULOPATHY OF LUMBOSACRAL REGION - M51.17 (PRIMARY) TREATMENT INTERVERTEBRAL DISC DISORDER WITH RADICULOPATHY OF LUMBOSACRAL REGION CONTINUE NORCO TABLET, 7.5-325 MG, 1 TABLET NEEDED, ORALLY, Q8H PRN MDD3 NOTES: LEFT L4/5 TRANSFORAMINAL STEROID INJECTION, ISTOP REGISTRY REVIEWED AND DEMONSTRATES COMPLLIANCE. BRINGS IN MEDICATIONS WHICH IS APPROPRIATE FOR WHAT WAS DISPENSED. RECENT URINE TOXICOLOGY REVIEWED. NO UNAUTHORIZED MEDICATIONS. NO ILLICIT SUBSTANCES AND PRESCRIBED MEDICATIONS WERE PRESENT. , RISKS OF NARCOTIC/OPIOD MEDICATIONS INCLUDES BUT IS NOT LIMITED TO RISK OF DEPENDANCE/DEVELOPMENT OF ADDICTION, MOOD DISTURBANCE AND DEPRESSION, OSTEOPOROSIS, HORMONAL AND LABIDAL CHANGES, RESPIRATORY DEPRESSION AND . PATIENT IS ADVISED NOT TO DRIVE OR DRINK ALCOHOL WHILE ON THESE MEDICATIONS. PREVENTIVE MEDICINE PAIN CLINIC TEACHING: PROCEDURE TEACHING REVIEWED INFORMATION ON TRANSFORAMINAL EPIDURAL PROCEDURE WITH PATIENT. ALSO REVIEWED PRE-PROCEDURE INSTRUCTIONS. PATIENT VERBALIZED AN UNDERSTANDING. RAYOGISELA Lindo 06/11/2019 1:29:16 PM > . PROCEDURE CODES FA211 ESTABILISHED PATIENT [facility] CHARGE DISPOSITION & COMMUNICATION FOLLOW UP POST (REASON: LEFT L4/5 TRANSFORAMINAL STEROID INJECTION) ELECTRONICALLY SIGNED BY TOBIAS KABA ON 06/29/2019 AT 08:51 AM EST DISCLAIMER : THIS IS A VISIT SUMMARY EXTRACTED FROM THE [employer] [facility] in [place] CHART. IT IS NOT A COPY OF THE [employer] PROGRESS NOTE. DOROTHEA
== END ==
LOC: M PAIN 09:15
PROVIDERS: ATTEND Nurse Practitioner Family
DX: M51.17 Intervertebral disc disorders with radiculopathy, lumbosacral region (principal); G43.909 Migraine, unspecified, not intractable, without status migrainosus; Z86.59 Personal history of other mental and behavioral disorders; Z87.891 Personal history of nicotine dependence; Z91.09 Other allergy status, other than to drugs and biological substances; Z79.899 Other long term (current) drug therapy

== ENCOUNTER → 2019-07-10 | Outpatient (REF) | payer OTHER | LOC: M SFHCLERA 10:09 | PROVIDERS: ATTEND Nurse Practitioner Family | DX: J02.9 Acute pharyngitis, unspecified (principal) ==

== ENCOUNTER → 2019-07-29 | Outpatient (CLI) | payer OTHER ==
[~2019-07-29] MED LIST changes: +BUPIVACAINE HCL 0.25% 30 ML VIAL As Ordered ONE; +ISOVUE-M 300 61% 15ML VIAL (Q9967) As Ordered ONE; +LIDOCAINE 1% SDV INJ 30 ML VIAL As Ordered ONE; +dexameTHASONE 10 MG/1 ML VIAL PRES.FREE (J1100) As Ordered ONE; +diazePAM 5 MG TAB As Ordered ONE; +oxyCODONE 5MG TAB As Ordered ONE
--- NOTE | 2019-07-29 17:24 | REP ---
Sacrum study: Limited exam. History: Intra procedural imaging left transforaminal injection. 1 minute 29 seconds of fluoroscopy time is reported. Findings: A sequence of 43 last image hold fluoroscopically obtained spot radiographs of the sacrum document needle position and contrast injection associated with injection procedure. Electronically Signed by Obed Langston MD 07/29/2019 05:15 P
--- NOTE | 2019-08-12 03:51 | ECWPNPC ---
PATIENT NAME: MIKE LAI : 1980 GENDER: FEMALE VISIT DATE: 07/29/2019 DISCHARGE DATE: 07/29/19 1455 VISIT LOCKED DATE TIME: PHYSICIAN: CATHY QUIROGA MD RESOURCE: CATHY QUIROGA MD REASON FOR APPOINTMENT 1. LEFT L5 LEFT S1 TRANSFORAMINAL STEROID INJECTION HISTORY OF PRESENT ILLNESS HISTORY OF PRESENT ILLNESS: PAIN THE PATIENT DESCRIBES THE PAIN... FALL RISK SCREENING: SCREENING :NO FALLS REPORTED IN THE LAST YEAR CURRENT MEDICATIONS TAKING EXCEDRIN MIGRAINE 250-250-65 MG TABLET 2 TABLETS NEEDED ORALLY EVERY 6 HRS TAKING FLUTICASONE PROPIONATE 50 MCG/ACT SUSPENSION 1 SPRAY IN EACH NOSTRIL NASALLY ONCE A DAY TAKING NORCO 7.5-325 MG TABLET 1 TABLET NEEDED ORALLY Q8H PRN MDD3, NOTES: [id number] TAKING SUDAFED 30 MG TABLET 1 TABLET NEEDED ORALLY EVERY 6 HRS, NOTES: NOT LATELY NOT-TAKING ZYRTEC ALLERGY 10 MG TABLET 1 TABLET ORALLY ONCE A DAY NOT-TAKING FLONASE 50 MCG/ACT SUSPENSION 1 SPRAY IN EACH NOSTRIL NASALLY TWICE A DAY NOT-TAKING DELSYM 30 MG/5ML SUSPENSION EXTENDED RELEASE 10 ML NEEDED ORALLY EVERY 12 HRS MEDICATION LIST REVIEWED AND RECONCILED WITH THE PATIENT PAST MEDICAL HISTORY TENDONITIS- RAUL KNEE MIGRAINES URINARY STRESS INCONTINENCE ANXIETY, ?PTSD HISTORY OF TOBACCO USE DYSPEPSIA GRANADOS BILATERAL CARPAL TUNNEL SYNDROME CHRONIC BACK PAIN, LUMBAR DDD WITH RADICULOPATHY ALLERGIES GOLD: RASH - ALLERGY BLEACH: SMELL CAUSES NAUSEA/VOMITING, REDNESS AND SWELLING SURGICAL HISTORY LEFT BUTTOCK ABSCESS REMOVAL RIGHT THIGH ABSCESS REMOVAL BTL 2008 ALL TEETH REMOVED FAMILY HISTORY FATHER: 58 YRS, DIAGNOSED WITH DIABETES, HYPERTENSION, UNSPECIFIED HEART DISEASE MOTHER: ALIVE, FIBROMYALGIA, DRUG ABUSE, ANXIETY, DEPRESSION, UNSPECIFIED 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 2 SON(S) - HEALTHY. SOCIAL HISTORY GENERAL: TOBACCO USE ARE YOU A:FORMER SMOKER HOW LONG HAS IT BEEN SINCE YOU LAST SMOKED?1-5 YEARS SMOKING CESSATION INFORMATION GIVEN05/10/2017 HIV / HEP-C SCREENING HIV TEST OFFERED TO PATIENT:YES DATE OFFERED:07/03/2016 TEST ACCEPTED:NO HEP-C TEST OFFERED TO PATIENT:YES DATE OFFERED:07/03/2016 REASON:PATIENT DECLINED TEST ACCEPTED:NO REASON:PATIENT DECLINED OTHERS AT HOME: CHILD, OTHER NON-RELATIVE. EDUCATION LEVEL OF EDUCATION:NOT FINISHED COLLEGE DIET: REGULAR. LANGUAGE LANGUAGES SPOKEN:[place] DOMESTIC VIOLENCE DO YOU FEEL SAFE IN YOUR ENVIRONMENT?YES BMI CARE GOAL FOLLOW-UP ABOVE NORMAL BMI FOLLOW-UPDIETARY NEEDS EDUCATION RECREATIONAL DRUG USE DRUG USE?NO PATIENT DENIES ABUSE OR MISSUSED OF ANY MEDICATION. PATIENT DENIES USE OF ANY ILLEGAL SUBSTANCE INCLUDING MARIJUANA OR COCAINE. 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 LEARNING BARRIERS / SPECIAL NEEDS CHANGE FROM LAST VISIT?NO BARRIERS TO LEARNING?NO HEARING IMPAIRED?NO VISION IMPAIRED?YES COGNITIVELY IMPAIRED?NO :CORRECTIVE LENSES READINESS TO LEARN?YES LEARNING PREFERENCES?NO LEARNING CAPABILITIES PRESENT?YES EMOTIONAL BARRIERS?NO SPECIAL DEVICES?NO SALES FORECAST ANALYST NEEDED?NO PAIN CLINIC PFS, CLERGY, PUBLIC HEALTH REFERRALS WAS THE PROVIDER NOTIFIED OF ANY PERTINENT INFO? N/A HAS THE PATIENT BEEN EDUCATED REGARDING HIS/HER PLAN OF CARE?YES HAS THE PATIENT BEEN EDUCATED REGARDING PAIN, THE RISK FOR PAIN, THE IMPORTANCE OF EFFECTIVE PAIN MANAGEMENT, AND THE PAIN ASSESSMENT PROCESS?YES LATEX QUESTIONNAIRE LATEX ALLERGY : HAVE YOU EVER DEVELOPED ANY TYPE OF REACTION AFTER HANDLING LATEX PRODUCTS SUCH RUBBER GLOVES, CONDOMS, DIAPHRAGMS, BALLOONS, SOCKS, OR UNDERWEAR?NO LATEX ALLERGY : HAVE YOU EVER DEVELOPED ANY TYPE OF REACTION DURING OR AFTER DENTAL APPOINTMENT, VAGINAL/RECTAL EXAMINATION, SURGICAL PROCEDURE, OR ANY OTHER EXPOSURE?NO DATE ASKED : 05/14/2019 LATEX RISK : HAVE YOU EVER HAD ANY DIFFICULTY BREATHING OR HIVES AFTER EATING OR HANDLING ANY FRUITS, OR VEGETABLES; SUCH KIWI, BANANAS, STONE FRUITS, OR CHESTNUTSNO LATEX RISK : DO YOU HAVE A PREVIOUS PERSONAL HISTORY OF MORE THAN NINE SURGERIES, SPINA BIFIDA, OR REPEATED CATHERIZATIONS? NO LATEX RISK : ARE YOU FREQUENTLY EXPOSED TO LATEX PRODUCTS IN YOUR OCCUPATION?NO CAFFEINE CAFFEINE USE?YES HOW OFTEN AND HOW MUCH? 1-2 CUP ADVANCE DIRECTIVE ADVANCE DIRECTIVE DISCUSSED WITH PATIENT:YES HCP VIGNESH HERRON [phone] YAZIDISM [id number] NONE MARITAL STATUS: SINGLE. 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 SEXUAL HX HAD SEX IN THE LAST 12 MONTHS (VAGINAL, ORAL, OR ANAL)?YES WITHMEN ONLY PREVENTION STRATEGIES DISCUSSED:CONDOMS USE PROTECTION?NO LMP:08/29/2016 HAVE YOU EVER HAD AN STD?NO REVIEWED 12/16/17 1025 BVREVIEWED 03/31/18 1458 LASREVIEWED WITH PATIENT 07/31/18 1437 JSREVIEWED WITH PT 08/14/18 1425 BV10/22/18 REVIEWED WITH PT. AD05/14/19 0904 REVIEWED WITH PT. ADREVIEWED WITH PT 04/07/19 0954 NLJREVIEWED WITH PATIENT 06/11/19 0940 JS. HOSPITALIZATION/MAJOR DIAGNOSTIC PROCEDURE RELATED TO SURGERY REVIEW OF SYSTEMS REVIEWED BY: PROVIDER: . CONSTITUTIONAL: ANY CHANGE IN YOUR MEDICAL CONDITION? NO . CHILLS NO . FEVER NO . INFECTION: DO YOU HAVE NEW INFECTIONS? NO . DO YOU HAVE HISTORY OF MRSA? NO . MUSCULOSKELETAL: ANY NEW PATTERNS OF PAIN OR NUMBNESS? NO . GASTROENTEROLOGY: ANY NEW CHANGE IN BOWEL CONTROL? NO . GENITOURINARY: ANY NEW CHANGE IN BLADDER CONTROL? NO . IS THERE A CHANCE YOU COULD BE ? NO . HEMATOLOGY/LYMPH: DO YOU TAKE ANY BLOOD THINNERS? (FOR EXAMPLE- COUMADIN, PLAVIX, AGGRENOX, PLATEL, PRADAXA, OR XARELTO) NO . WHEN WAS YOUR LAST DOSE? DATE: TIME: . NEUROLOGY: HAVE YOU FALLEN IN THE PAST 12 MONTHS? YES ABOUT A MONTH AGO "KNEES GAVE OUT" . ANY NEW EXTREMITY NUMBNESS OR WEAKNESS? NO . CARDIOLOGY: DO YOU HAVE A PACEMAKER OR DEFIBRILLATOR? NO . RESPIRATORY: HAVE YOU BEEN SICK IN THE PAST WEEK? NO . FEVER NO . FLU LIKE SYMPTOMS? NO . COUGH NO . INTEGUMENTARY: DO YOU HAVE ANY RASHES OR OPEN SORES? NO . ALLERGIC/IMMUNO: ARE YOU ALLERGIC TO IV DYE? NO . ANY NEW ALLERGIES? NO . PSYCHIATRIC: DO YOU HAVE THOUGHTS OF HURTING YOURSELF OR SOMEONE ELSE? NO . ARE YOU ABUSED, NEGLECTED, OR IN AN UNSAFE ENVIRONMENT? NO . ENDOCRINOLOGY: ARE YOU DIABETIC? NO . OTHER: DO YOU NEED ANY PRESCRIPTIONS? NO . IF YES, PLEASE LIST: ____ . ANY NEW PROBLEMS WITH YOUR MEDICATIONS? NO . WHEN DID YOU LAST EAT? ____07-28-19 9 PM . WHEN DID YOU LAST DRINK? ____07-29-19 1030 . WHAT DID YOU LAST DRINK? ____WATER . NAME OF PERSON DRIVING YOU HOME? _VIGNESH HERRON . VITAL SIGNS WT 186.0 LBS, HT 67 IN, BMI 29.13 INDEX, BP 148/83 MM HG, HR 76 /MIN, RR 18 /MIN, TEMP 98.2 F, OXYGEN SAT % 99% RA, BLOOD GLUCOSE LEVEL N/A, SAFE IN ENV? (Y/N) YESA. JANESSA LESTER. ASSESSMENTS INTERVERTEBRAL DISC DISORDER WITH RADICULOPATHY OF LUMBOSACRAL REGION - M51.17 (PRIMARY) TREATMENT INTERVERTEBRAL DISC DISORDER WITH RADICULOPATHY OF LUMBOSACRAL REGION [facility] FLUORO GUIDE SPINE INJECTION (PAIN)[id number] PROCEDURES PN LUMBAR TRANSFORAMINAL BLOCKS PRE PROCEDURE DIAGNOSIS LUMBOSACRAL DISC DISORDER WITH RADICULOPATHY POST PROCEDURE DIAGNOSIS LUMBOSACRAL DISC DISORDER WITH RADICULOPATHY PROCEDURE LEFT L5 LEFT S1 TRANSFORAMINAL EPIDURAL STEROID INJECTION UNDER FLUOROSCOPIC GUIDANCE SURGEON DR CATHY QUIROGA FOCUS PULLER NONE ANESTHESIA LOCAL PRE PROCEDURE NOTE PATIENT WITH HISTORY OF CHRONIC LOW BACK PAIN. I EVALUATED THE PATIENT AND REVIEWED THE CHART. I WENT OVER THE RISKS, ALTERNATIVES AND BENEFITS ASSOCIATED WITH THIS PROCEDURE. THE PATIENT WOULD LIKE TO PROCEED AND GAVE CONSENT TO PERFORM THE PROCEDURE. THE PATIENT DENIES UNEXPLAINABLE WEIGHT LOSS, FEVER, CHILLS, OR CHANGES IN URINARY OR BOWEL CONTROL DESCRIPTION OF PROCEDURE THE PATIENT WAS BROUGHT TO THE PROCEDURE ROOM AND PLACED IN THE PRONE POSITION. THE LUMBOSACRAL AREA WAS CLEANED WITH BETADINE SOLUTION AND DRAPED ASEPTICALLY. THE PROCEDURE WAS DONE UNDER STERILE CONDITIONS. I CHECKED LATERALITY AND THE LEVEL WHERE THE PROCEDURE WAS GOING TO BE PERFORMED WITH THE PATIENT AND THE SUPPORTING STAFF AT THE MOMENT OF THE TIMEOUT IN THE PROCEDURE ROOM. UNDER FLUOROSCOPIC GUIDANCE, TARGETS WERE SELECTED AT THE LEFT TRANSFORAMINAL OPENING OF L5 AND THE LEFT TRANSFORAMINAL OPENING OF S1. TARGET POINTS WERE SELECTED AFTER LATERAL ROTATION AND TILT OF THE MAGNIFIER OF THE C-ARM. LIDOCAINE 0.5% WAS USED TO NUMB THE SKIN AND THE SUBCUTANEOUS TISSUE BELOW IT. AN EPIMED INTRODUCER 18-GAUGE WAS ADVANCED UNTIL WE WENT CLOSE TO THE SELECTED TRANSFORAMINAL OPENINGS. AFTER PROPER POSITION OF THE NEEDLES WAS ACHIEVED, A 22-GAUGE EPIMED NEEDLE WAS PLACED INSIDE OF THE INTRODUCER AND ADVANCED TO THE TRANSFORAMINAL OPENING OF THE SELECTED SITES. WHEN PROPER POSITION OF THE NEEDLE WAS ACHIEVED, ISOVUE M DYE 30%, 0.25 ML, WAS INJECTED SHOWING ADEQUATE SPREAD OF THE DYE. THIS WAS DONE UNDER DIGITAL SUBTRACTION AND ANGIOGRAPHY. THERE WAS NO VASCULAR UPDATE. THEN, A SOLUTION OF 2 ML OF BUPIVACAINE 0.25% AND DEXAMETHASONE 10 MG WAS INJECTED AT EACH SITE. THERE WAS NO EVIDENCE OF BLOOD, PARESTHESIA OR CEREBROSPINAL FLUID DURING THE PROCEDURE. THE PATIENT WAS SENT TO THE RECOVERY ROOM. THE PATIENT WAS MOVING THE EXTREMITIES AND DOING WELL. THERE WAS NO COMPLICATION DURING THE PROCEDURE. FLUOROSCOPY TIME WAS 1 MINUTE 29 SECONDS POST PROCEDURE NOTE THE PROCEDURE DONE WAS DISCUSSED WITH THE PATIENT. THE PATIENT WILL BE SEEN IN A FOLLOWUP IN THE NEXT FEW WEEKS. I AM LOOKING FOR LONG-LASTING PAIN RELIEF WITH THIS PROCEDURE. INSTRUCTIONS WERE GIVEN, QUESTIONS WERE ANSWERED, AND THE PATIENT EXPRESSED UNDERSTANDING AND AGREES WITH THE PLAN. I, PIEDAD MINOR, DOCUMENTED THE ABOVE INFORMATION ACTING A SCRIBE FOR DR. QUIROGA. I HAVE REVIEWED THE ABOVE DOCUMENT, WRITTEN BY LEROY LAI, AND I VERIFY THAT IT IS ACCURATE PROCEDURE CODES 25448 INJ FORAMEN EPIDURAL L/S, [place]: [place] [address] INJ FORAMEN EPIDURAL ADD-ON, MODIFIERS: LT 6045F RADXPS IN END [id number] PXD DISPOSITION & COMMUNICATION FOLLOW UP 3 WEEKS ELECTRONICALLY SIGNED BY CATHY QUIROGA MD, MD ON 08/11/2019 AT 11:50 AM EST DISCLAIMER : THIS IS A VISIT SUMMARY EXTRACTED FROM THE [employer] CHART. IT IS NOT A COPY OF THE [employer] PROGRESS NOTE. MTDD
== END ==
LOC: M PAIN 13:00
PROVIDERS: ATTEND Anesthesiology
DX: M51.17 Intervertebral disc disorders with radiculopathy, lumbosacral region (principal); G43.909 Migraine, unspecified, not intractable, without status migrainosus; Z86.59 Personal history of other mental and behavioral disorders; Z87.891 Personal history of nicotine dependence; Z91.09 Other allergy status, other than to drugs and biological substances; Z79.899 Other long term (current) drug therapy
CPT/HCPCS: 64483; 64484; J1100; Q9967

== ENCOUNTER → 2019-08-17 | Outpatient (CLI) | payer OTHER ==
[~2019-08-17] MED LIST changes: -BUPIVACAINE HCL 0.25% 30 ML VIAL As Ordered ONE; -ISOVUE-M 300 61% 15ML VIAL (Q9967) As Ordered ONE; -LIDOCAINE 1% SDV INJ 30 ML VIAL As Ordered ONE; -dexameTHASONE 10 MG/1 ML VIAL PRES.FREE (J1100) As Ordered ONE; -diazePAM 5 MG TAB As Ordered ONE; -oxyCODONE 5MG TAB As Ordered ONE
--- NOTE | 2019-09-01 05:22 | ECWPNPC ---
PATIENT NAME: MIKE LAI : 1980 GENDER: FEMALE VISIT DATE: 08/17/2019 DISCHARGE DATE: 08/17/19 0957 VISIT LOCKED DATE TIME: PHYSICIAN: SABIHA BERNARDO RESOURCE: SABIHA BERNARDO REASON FOR APPOINTMENT 1. POST LEFT L4/5 TRANSFORAMINAL STEROID INJECTION HISTORY OF PRESENT ILLNESS HISTORY OF PRESENT ILLNESS: HERE FOR POST PROCEDURE FOLLOW-UP. HAD LEFT L5-S1 TRANSFORAMINAL EPIDURAL STEROID INJECTION ON 07/29/2019.REPORTING A SIGNIFICANT REDUCTION IN LEFT LEG PAIN THAT CONTINUES TODAY.RIGHT LOW BACK AND RIGHT LEG HAS BEEN AGGREVATED OVER THE PAST 4 DAYS. RATING RIGHT LOW BACK AND LEG PAIN AN 8/10 VAS. REVIEWED MRI AND DISCUSSED TREATMENT OPTIONS. PAIN THE PATIENT DESCRIBES THE PAIN... FALL RISK SCREENING: SCREENING :NO FALLS REPORTED IN THE LAST YEAR CURRENT MEDICATIONS TAKING EXCEDRIN MIGRAINE 250-250-65 MG TABLET 2 TABLETS NEEDED ORALLY EVERY 6 HRS TAKING FLUTICASONE PROPIONATE 50 MCG/ACT SUSPENSION 1 SPRAY IN EACH NOSTRIL NASALLY ONCE A DAY TAKING NORCO 7.5-325 MG TABLET 1 TABLET NEEDED ORALLY Q8H PRN MDD3 NOT-TAKING ZYRTEC ALLERGY 10 MG TABLET 1 TABLET ORALLY ONCE A DAY NOT-TAKING FLONASE 50 MCG/ACT SUSPENSION 1 SPRAY IN EACH NOSTRIL NASALLY TWICE A DAY NOT-TAKING DELSYM 30 MG/5ML SUSPENSION EXTENDED RELEASE 10 ML NEEDED ORALLY EVERY 12 HRS NOT-TAKING SUDAFED 30 MG TABLET 1 TABLET NEEDED ORALLY EVERY 6 HRS MEDICATION LIST REVIEWED AND RECONCILED WITH THE PATIENT PAST MEDICAL HISTORY TENDONITIS- RAUL KNEE MIGRAINES URINARY STRESS INCONTINENCE ANXIETY, ?PTSD HISTORY OF TOBACCO USE DYSPEPSIA GRANADOS BILATERAL CARPAL TUNNEL SYNDROME CHRONIC BACK PAIN, LUMBAR DDD WITH RADICULOPATHY ALLERGIES GOLD: RASH - ALLERGY BLEACH: SMELL CAUSES NAUSEA/VOMITING, REDNESS AND SWELLING SURGICAL HISTORY LEFT BUTTOCK ABSCESS REMOVAL RIGHT THIGH ABSCESS REMOVAL BTL 2008 ALL TEETH REMOVED FAMILY HISTORY FATHER: 58 YRS, DIAGNOSED WITH DIABETES, HYPERTENSION, UNSPECIFIED HEART DISEASE MOTHER: ALIVE, FIBROMYALGIA, DRUG ABUSE, ANXIETY, DEPRESSION, UNSPECIFIED 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 2 SON(S) - HEALTHY. SOCIAL HISTORY GENERAL: TOBACCO USE ARE YOU A:FORMER SMOKER HOW LONG HAS IT BEEN SINCE YOU LAST SMOKED?1-5 YEARS SMOKING CESSATION INFORMATION GIVEN05/10/2017 HIV / HEP-C SCREENING HIV TEST OFFERED TO PATIENT:YES DATE OFFERED:07/03/2016 TEST ACCEPTED:NO HEP-C TEST OFFERED TO PATIENT:YES DATE OFFERED:07/03/2016 REASON:PATIENT DECLINED TEST ACCEPTED:NO REASON:PATIENT DECLINED OTHERS AT HOME: CHILD, OTHER NON-RELATIVE. EDUCATION LEVEL OF EDUCATION:NOT FINISHED COLLEGE DIET: REGULAR. LANGUAGE LANGUAGES SPOKEN:[place] DOMESTIC VIOLENCE DO YOU FEEL SAFE IN YOUR ENVIRONMENT?YES BMI CARE GOAL FOLLOW-UP ABOVE NORMAL BMI FOLLOW-UPDIETARY NEEDS EDUCATION RECREATIONAL DRUG USE DRUG USE?NO PATIENT DENIES ABUSE OR MISSUSED OF ANY MEDICATION. PATIENT DENIES USE OF ANY ILLEGAL SUBSTANCE INCLUDING MARIJUANA OR COCAINE. 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 LEARNING BARRIERS / SPECIAL NEEDS CHANGE FROM LAST VISIT?NO BARRIERS TO LEARNING?NO HEARING IMPAIRED?NO VISION IMPAIRED?YES COGNITIVELY IMPAIRED?NO :CORRECTIVE LENSES READINESS TO LEARN?YES LEARNING PREFERENCES?NO LEARNING CAPABILITIES PRESENT?YES EMOTIONAL BARRIERS?NO SPECIAL DEVICES?NO HOLISTIC SPECIALIST NEEDED?NO PAIN CLINIC PFS, CLERGY, PUBLIC HEALTH REFERRALS WAS THE PROVIDER NOTIFIED OF ANY PERTINENT INFO? N/A HAS THE PATIENT BEEN EDUCATED REGARDING HIS/HER PLAN OF CARE?YES HAS THE PATIENT BEEN EDUCATED REGARDING PAIN, THE RISK FOR PAIN, THE IMPORTANCE OF EFFECTIVE PAIN MANAGEMENT, AND THE PAIN ASSESSMENT PROCESS?YES LATEX QUESTIONNAIRE LATEX ALLERGY : HAVE YOU EVER DEVELOPED ANY TYPE OF REACTION AFTER HANDLING LATEX PRODUCTS SUCH RUBBER GLOVES, CONDOMS, DIAPHRAGMS, BALLOONS, SOCKS, OR UNDERWEAR?NO LATEX ALLERGY : HAVE YOU EVER DEVELOPED ANY TYPE OF REACTION DURING OR AFTER DENTAL APPOINTMENT, VAGINAL/RECTAL EXAMINATION, SURGICAL PROCEDURE, OR ANY OTHER EXPOSURE?NO LATEX RISK : HAVE YOU EVER HAD ANY DIFFICULTY BREATHING OR HIVES AFTER EATING OR HANDLING ANY FRUITS, OR VEGETABLES; SUCH KIWI, BANANAS, STONE FRUITS, OR CHESTNUTSNO LATEX RISK : DO YOU HAVE A PREVIOUS PERSONAL HISTORY OF MORE THAN NINE SURGERIES, SPINA BIFIDA, OR REPEATED CATHERIZATIONS? NO LATEX RISK : ARE YOU FREQUENTLY EXPOSED TO LATEX PRODUCTS IN YOUR OCCUPATION?NO DATE ASKED : 05/14/2019 CAFFEINE CAFFEINE USE?YES HOW OFTEN AND HOW MUCH? 1-2 CUP ADVANCE DIRECTIVE ADVANCE DIRECTIVE DISCUSSED WITH PATIENT:YES HCP VIGNESH HERRON [phone] FAITH [id number] NONE MARITAL STATUS: SINGLE. 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 SEXUAL HX HAD SEX IN THE LAST 12 MONTHS (VAGINAL, ORAL, OR ANAL)?YES WITHMEN ONLY PREVENTION STRATEGIES DISCUSSED:CONDOMS USE PROTECTION?NO LMP:08/29/2016 HAVE YOU EVER HAD AN STD?NO REVIEWED 12/16/17 1025 BVREVIEWED 03/31/18 1458 LASREVIEWED WITH PATIENT 07/31/18 1437 JSREVIEWED WITH PT 08/14/18 1425 BV10/22/18 REVIEWED WITH PT. AD05/14/19 0904 REVIEWED WITH PT. ADREVIEWED WITH PT 04/07/19 0954 NLJREVIEWED WITH PATIENT 06/11/19 0940 JSREVIEWED WITH PATIENT 08/17/2019 0908 JS. HOSPITALIZATION/MAJOR DIAGNOSTIC PROCEDURE RELATED TO SURGERY REVIEW OF SYSTEMS REVIEWED BY: PROVIDER: SABIHA COLLADO . CONSTITUTIONAL: ANY CHANGE IN YOUR MEDICAL CONDITION? NO . CHILLS NO . FEVER NO . INFECTION: DO YOU HAVE NEW INFECTIONS? NO . DO YOU HAVE HISTORY OF MRSA? NO . MUSCULOSKELETAL: ANY NEW PATTERNS OF PAIN OR NUMBNESS? NO . GASTROENTEROLOGY: ANY NEW CHANGE IN BOWEL CONTROL? NO . GENITOURINARY: ANY NEW CHANGE IN BLADDER CONTROL? NO . IS THERE A CHANCE YOU COULD BE ? NO . HEMATOLOGY/LYMPH: DO YOU TAKE ANY BLOOD THINNERS? (FOR EXAMPLE- COUMADIN, PLAVIX, AGGRENOX, PLATEL, PRADAXA, OR XARELTO) NO . WHEN WAS YOUR LAST DOSE? DATE: TIME: . NEUROLOGY: HAVE YOU FALLEN IN THE PAST 12 MONTHS? NO . ANY NEW EXTREMITY NUMBNESS OR WEAKNESS? NO . CARDIOLOGY: DO YOU HAVE A PACEMAKER OR DEFIBRILLATOR? NO . RESPIRATORY: HAVE YOU BEEN SICK IN THE PAST WEEK? NO . FEVER NO . FLU LIKE SYMPTOMS? NO . COUGH NO . INTEGUMENTARY: DO YOU HAVE ANY RASHES OR OPEN SORES? NO . ALLERGIC/IMMUNO: ARE YOU ALLERGIC TO IV DYE? NO . ANY NEW ALLERGIES? NO . PSYCHIATRIC: DO YOU HAVE THOUGHTS OF HURTING YOURSELF OR SOMEONE ELSE? NO . ARE YOU ABUSED, NEGLECTED, OR IN AN UNSAFE ENVIRONMENT? NO . ENDOCRINOLOGY: ARE YOU DIABETIC? NO . OTHER: DO YOU NEED ANY PRESCRIPTIONS? NO . IF YES, PLEASE LIST: ____ . ANY NEW PROBLEMS WITH YOUR MEDICATIONS? NO . WHEN DID YOU LAST EAT? ____ . WHEN DID YOU LAST DRINK? ____ . WHAT DID YOU LAST DRINK? ____ . NAME OF PERSON DRIVING YOU HOME? ____ . DO YOU HAVE ANY OTHER QUESTIONS OR CONCERNS NO . VITAL SIGNS WT 185.0 LBS, HT 67 IN, BMI 28.97 INDEX, BP 138/87 MM HG, HR 82 /MIN, RR 18 /MIN, TEMP 98.6 F, OXYGEN SAT % 99%, SAFE IN ENV? (Y/N) YES, NA INITIALS AW 0908, REVIEWED BY: ANNA. EXAMINATION GENERAL EXAMINATION: GENERAL ALERT,NO DISTRESS . PSYCH AFFECT NORMAL . LUNGS: LUNG SOUNDS ARE CLEAR . HEART: HEART RATE REGULAR . MUSCULOSKELETAL: MST 5/5 BILAT. LOWER EXTREMITIES . LUMBAR: TENDERNESS RIGHT SIJ . POSITIVE ERNST TESTING RIGHT LEG. DIAGNOSTIC TESTS REVIEWEDMRI L/S [id number] . ASSESSMENTS SACROILIITIS - M46.1 (PRIMARY) TREATMENT SACROILIITIS NOTES: RIGHT SIJ WITH IV SEDATION. PREVENTIVE MEDICINE PAIN CLINIC TEACHING: PROCEDURE TEACHING REVIEWED INFORMATION ON SACROILIAC JOINT INJECTION PROCEDURE WITH PATIENT. ALSO REVIEWED PRE-PROCEDURE INSTRUCTIONS. PATIENT VERBALIZED AN UNDERSTANDING. GISELA CADE 08/17/2019 2:49:58 PM > . PROCEDURE CODES FA211 ESTABILISHED PATIENT [facility] CHARGE DISPOSITION & COMMUNICATION FOLLOW UP IV SED DR Page-POST PROCEDURE SABIHA (REASON: RIGHT SIJ WITH IV SEDATION) ELECTRONICALLY SIGNED BY TOBIAS KABA ON 08/31/2019 AT 04:19 PM EST DISCLAIMER : THIS IS A VISIT SUMMARY EXTRACTED FROM THE [employer] CHART. IT IS NOT A COPY OF THE [employer] PROGRESS NOTE. DOROTHEA
== END ==
LOC: M PAIN 09:00
PROVIDERS: ATTEND Nurse Practitioner Family
DX: M46.1 Sacroiliitis, not elsewhere classified (principal); G43.909 Migraine, unspecified, not intractable, without status migrainosus; Z86.59 Personal history of other mental and behavioral disorders; Z87.891 Personal history of nicotine dependence; Z91.09 Other allergy status, other than to drugs and biological substances; Z79.899 Other long term (current) drug therapy

== ENCOUNTER → 2019-09-11 | Outpatient (CLI) | payer OTHER ==
--- NOTE | 2019-09-17 04:38 | ECWPNPC ---
PATIENT NAME: MIKE LAI : 1980 GENDER: FEMALE VISIT DATE: 09/11/2019 DISCHARGE DATE: 09/11/19 1152 VISIT LOCKED DATE TIME: PHYSICIAN: CATHY QUIROGA MD RESOURCE: CATHY QUIROGA MD REASON FOR APPOINTMENT 1. PRE SEDATE HISTORY OF PRESENT ILLNESS HISTORY OF PRESENT ILLNESS: PAIN THE PATIENT DESCRIBES THE PAIN... 39 YEAR OLD FEMALE PATIENT WITH A HISTORY OF CHRONIC LOW BACK AND LEG PAIN. THE PATIENT DESCRIBES THE PAIN ACHING, SORE, SHOOTING, DAILY, AND CONTINUOUS WITH A PAIN SCORE OF 2-8/10 DEPENDING ON PHYSICAL ACTIVITY. THE PATIENT STATES HER PAIN BEGINS IN HER LOW BACK AND RADIATES DOWN MAINLY HER RIGHT LEG. THE PATIENT SAYS HER PAIN IS MAKING IT DIFFICULTY FOR HER TO PERFORM HER DAILY ACTIVITIES SUCH MOVING AROUND, CLEANING HER HOUSE, AND COOKING. PATIENT DENIES UNEXPLAINABLE WEIGHT LOSS, FEVER, CHILLS, NEW CHANGES ON HER URINARY OR BOWEL CONTROL. FALL RISK SCREENING: SCREENING :NO FALLS REPORTED IN THE LAST YEAR CURRENT MEDICATIONS TAKING EXCEDRIN MIGRAINE 250-250-65 MG TABLET 2 TABLETS NEEDED ORALLY EVERY 6 HRS TAKING FLUTICASONE PROPIONATE 50 MCG/ACT SUSPENSION 1 SPRAY IN EACH NOSTRIL NASALLY ONCE A DAY TAKING NORCO 7.5-325 MG TABLET 1 TABLET NEEDED ORALLY Q8H PRN MDD3 TAKING BUSPIRONE HCL 7.5 MG TABLET 1 TABLET ORALLY TWICE A DAY NOT-TAKING ZYRTEC ALLERGY 10 MG TABLET 1 TABLET ORALLY ONCE A DAY NOT-TAKING FLONASE 50 MCG/ACT SUSPENSION 1 SPRAY IN EACH NOSTRIL NASALLY TWICE A DAY NOT-TAKING DELSYM 30 MG/5ML SUSPENSION EXTENDED RELEASE 10 ML NEEDED ORALLY EVERY 12 HRS NOT-TAKING SUDAFED 30 MG TABLET 1 TABLET NEEDED ORALLY EVERY 6 HRS MEDICATION LIST REVIEWED AND RECONCILED WITH THE PATIENT PAST MEDICAL HISTORY TENDONITIS- RAUL KNEE MIGRAINES URINARY STRESS INCONTINENCE ANXIETY, ?PTSD HISTORY OF TOBACCO USE DYSPEPSIA GRANADOS BILATERAL CARPAL TUNNEL SYNDROME CHRONIC BACK PAIN, LUMBAR DDD WITH RADICULOPATHY ALLERGIES GOLD: RASH - ALLERGY BLEACH: SMELL CAUSES NAUSEA/VOMITING, REDNESS AND SWELLING SURGICAL HISTORY LEFT BUTTOCK ABSCESS REMOVAL RIGHT THIGH ABSCESS REMOVAL BTL 2008 ALL TEETH REMOVED FAMILY HISTORY FATHER: 58 YRS, DIAGNOSED WITH HYPERTENSION, DIABETES, UNSPECIFIED HEART DISEASE MOTHER: ALIVE, FIBROMYALGIA, DRUG ABUSE, ANXIETY, DEPRESSION, UNSPECIFIED 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 2 SON(S) - HEALTHY. SOCIAL HISTORY GENERAL: TOBACCO USE ARE YOU A:FORMER SMOKER HOW LONG HAS IT BEEN SINCE YOU LAST SMOKED?1-5 YEARS SMOKING CESSATION INFORMATION GIVEN05/10/2017 HIV / HEP-C SCREENING HIV TEST OFFERED TO PATIENT:YES DATE OFFERED:07/03/2016 TEST ACCEPTED:NO HEP-C TEST OFFERED TO PATIENT:YES DATE OFFERED:07/03/2016 REASON:PATIENT DECLINED TEST ACCEPTED:NO REASON:PATIENT DECLINED OTHERS AT HOME: CHILD, OTHER NON-RELATIVE. EDUCATION LEVEL OF EDUCATION:NOT FINISHED COLLEGE DIET: REGULAR. LANGUAGE LANGUAGES SPOKEN:[place] DOMESTIC VIOLENCE DO YOU FEEL SAFE IN YOUR ENVIRONMENT?YES BMI CARE GOAL FOLLOW-UP ABOVE NORMAL BMI FOLLOW-UPDIETARY NEEDS EDUCATION RECREATIONAL DRUG USE DRUG USE?NO PATIENT DENIES ABUSE OR MISSUSED OF ANY MEDICATION. PATIENT DENIES USE OF ANY ILLEGAL SUBSTANCE INCLUDING MARIJUANA OR COCAINE. 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 NEEDED?NO PAIN CLINIC PFS, CLERGY, PUBLIC HEALTH REFERRALS WAS THE PROVIDER NOTIFIED OF ANY PERTINENT INFO?YES N/A HAS THE PATIENT BEEN EDUCATED REGARDING HIS/HER PLAN OF CARE?YES HAS THE PATIENT BEEN EDUCATED REGARDING PAIN, THE RISK FOR PAIN, THE IMPORTANCE OF EFFECTIVE PAIN MANAGEMENT, AND THE PAIN ASSESSMENT PROCESS?YES LATEX QUESTIONNAIRE LATEX ALLERGY : HAVE YOU EVER DEVELOPED ANY TYPE OF REACTION AFTER HANDLING LATEX PRODUCTS SUCH RUBBER GLOVES, CONDOMS, DIAPHRAGMS, BALLOONS, SOCKS, OR UNDERWEAR?NO LATEX ALLERGY : HAVE YOU EVER DEVELOPED ANY TYPE OF REACTION DURING OR AFTER DENTAL APPOINTMENT, VAGINAL/RECTAL EXAMINATION, SURGICAL PROCEDURE, OR ANY OTHER EXPOSURE?NO LATEX RISK : HAVE YOU EVER HAD ANY DIFFICULTY BREATHING OR HIVES AFTER EATING OR HANDLING ANY FRUITS, OR VEGETABLES; SUCH KIWI, BANANAS, STONE FRUITS, OR CHESTNUTSNO LATEX RISK : DO YOU HAVE A PREVIOUS PERSONAL HISTORY OF MORE THAN NINE SURGERIES, SPINA BIFIDA, OR REPEATED CATHERIZATIONS? NO LATEX RISK : ARE YOU FREQUENTLY EXPOSED TO LATEX PRODUCTS IN YOUR OCCUPATION?NO DATE ASKED : 09/11/2019 CAFFEINE CAFFEINE USE?YES HOW OFTEN AND HOW MUCH? 1-2 CUP ADVANCE DIRECTIVE ADVANCE DIRECTIVE DISCUSSED WITH PATIENT:YES HCP VIGNESH HERRON [phone] TEMPLE [id number] NONE MARITAL STATUS: SINGLE. 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 SEXUAL HX HAD SEX IN THE LAST 12 MONTHS (VAGINAL, ORAL, OR ANAL)?YES WITHMEN ONLY PREVENTION STRATEGIES DISCUSSED:CONDOMS USE PROTECTION?NO LMP:08/29/2016 HAVE YOU EVER HAD AN STD?NO HOSPITALIZATION/MAJOR DIAGNOSTIC PROCEDURE RELATED TO SURGERY REVIEW OF SYSTEMS REVIEWED BY: PROVIDER: CATHY QUIROGA MD . CONSTITUTIONAL: ANY CHANGE IN YOUR MEDICAL CONDITION? NO . CHILLS NO . FEVER NO . INFECTION: DO YOU HAVE NEW INFECTIONS? NO . DO YOU HAVE HISTORY OF MRSA? NO . MUSCULOSKELETAL: ANY NEW PATTERNS OF PAIN OR NUMBNESS? NO . GASTROENTEROLOGY: ANY NEW CHANGE IN BOWEL CONTROL? NO . GENITOURINARY: ANY NEW CHANGE IN BLADDER CONTROL? NO . IS THERE A CHANCE YOU COULD BE ? NO . HEMATOLOGY/LYMPH: DO YOU TAKE ANY BLOOD THINNERS? (FOR EXAMPLE- COUMADIN, PLAVIX, AGGRENOX, PLATEL, PRADAXA, OR XARELTO) NO . WHEN WAS YOUR LAST DOSE? DATE: TIME: . NEUROLOGY: HAVE YOU FALLEN IN THE PAST 12 MONTHS? NO . ANY NEW EXTREMITY NUMBNESS OR WEAKNESS? NO . CARDIOLOGY: DO YOU HAVE A PACEMAKER OR DEFIBRILLATOR? NO . RESPIRATORY: HAVE YOU BEEN SICK IN THE PAST WEEK? NO . FEVER NO . FLU LIKE SYMPTOMS? NO . COUGH NO . INTEGUMENTARY: DO YOU HAVE ANY RASHES OR OPEN SORES? NO . ALLERGIC/IMMUNO: ARE YOU ALLERGIC TO IV DYE? NO . ANY NEW ALLERGIES? NO . PSYCHIATRIC: DO YOU HAVE THOUGHTS OF HURTING YOURSELF OR SOMEONE ELSE? NO . ARE YOU ABUSED, NEGLECTED, OR IN AN UNSAFE ENVIRONMENT? NO . ENDOCRINOLOGY: ARE YOU DIABETIC? NO . OTHER: DO YOU NEED ANY PRESCRIPTIONS? NO . IF YES, PLEASE LIST: ____ . ANY NEW PROBLEMS WITH YOUR MEDICATIONS? NO . WHEN DID YOU LAST EAT? ____ . WHEN DID YOU LAST DRINK? ____ . WHAT DID YOU LAST DRINK? ____ . NAME OF PERSON DRIVING YOU HOME? ____ . DO YOU HAVE ANY OTHER QUESTIONS OR CONCERNS PRESEDATE APPOINTMENT FOR RIGHT SACRO ILIAC JOINT INJECTION . VITAL SIGNS WT 186.6 LBS, HT 67 IN, BMI 29.22 INDEX, BP 136/84 MM HG, HR 76 /MIN, RR 18 /MIN, TEMP 97.8 F, OXYGEN SAT % 95%, NA INITIALS AW 1034. EXAMINATION GENERAL EXAMINATION: PATIENT IS ALERT O X 3 AND COOPERATIVE. LUNGS CLEAR, TO AUSCULTATION. HEART: NO MURMURS OR GALLOPS; FACIAL CRANIAL NERVES ARE GROSSLY NORMAL. GOOD SYMMETRY OF FACIAL MUSCLE MOVEMENT. NORMAL VISUAL [place]. ANTALGIC GAIT. RIGHT LEG IS WEAKER AT EXTENSION AND FLEXION. STRAIGHT LEG RAISE OF THE RIGHT LEG IS POSITIVE AT 40 DEGREES FOR RADICULOPATHY. MRI OF THE LUMBAR SPINE DONE ON 08/20/2018 SHOWS A BULGING DISC AT L4-L5 LEVEL. ASSESSMENTS INTERVERTEBRAL DISC DISORDERS WITH RADICULOPATHY, LUMBAR REGION - M51.16 (PRIMARY) INTERVERTEBRAL DISC DISORDERS WITH RADICULOPATHY, LUMBOSACRAL REGION - M51.17 TREATMENT INTERVERTEBRAL DISC DISORDERS WITH RADICULOPATHY, LUMBAR REGION CLINICAL NOTES: WE DISCUSSED SEVERAL ISSUES WITH MS. LAI'S PAIN MANAGEMENT CASE. DUE TO THE LUMBAR RADICULOPATHY, I WOULD LIKE TO MOVE FORWARD WITH A RIGHT L5, RIGHT S1 TRANSFORAMINAL LUMBAR EPIDURAL STEROID INJECTION AT THIS TIME. THE PATIENT WOULD LIKE TO MOVE FORWARD WITH IV SEDATION DUE TO DISCOMFORT, PAIN, AND ANXIETY ASSOCIATED WITH THE PROCEDURE. WE DISCUSSED THE BENEFITS, RISKS, AND ALTERNATIVES OF THE INJECTION AND THE PATIENT WOULD LIKE TO PROCEED. I AM LOOKING FOR LONG LASTING PAIN RELIEF FROM THIS INJECTION FOR THE PATIENT. THE PATIENT WILL FOLLOW UP IN SEVERAL WEEKS AFTER HER INJECTION TO SEE HOW IT IS HELPING WITH HER PAIN. INSTRUCTIONS WERE GIVEN, QUESTIONS WERE ANSWERED, PATIENT REPORTS UNDERSTANDING AND AGREES WITH THE PLAN. I, JOSE SCHWARZ, DOCUMENTED THE ABOVE INFORMATION ACTING A SCRIBE FOR DR. QUIROGA. I HAVE REVIEWED THE ABOVE DOCUMENT, WRITTEN BY JOSE HEMRIC SCRIBE AND I VERIFY THAT IT IS ACCURATE. . PREVENTIVE MEDICINE PAIN CLINIC TEACHING: PROCEDURE TEACHING REVIEWED INFORMATION ON TRANSFORAMINAL EPIDURAL STEROID INJECTION. ALSO REVIEWED PRE-PROCEDURE INSTRUCTIONS. PATIENT VERBALIZED AN UNDERSTANDING. GISELA CADE 09/11/2019 11:54:44 AM > . PROCEDURE CODES FA211 ESTABILISHED PATIENT [facility] FACILITY CHARGE [id number] CURRENT MEDS W/DOSAGES DOCUMENTED G8730 PAIN ASSESS POS TOOL F/U PLAN DOC DISPOSITION & COMMUNICATION FOLLOW UP REASON: RT L5, RT S1 TRANSFORAMINAL LESI W/ IV SEDATE ELECTRONICALLY SIGNED BY CATHY QUIROGA MD, MD ON 09/16/2019 AT 11:49 AM EDT DISCLAIMER : THIS IS A VISIT SUMMARY EXTRACTED FROM THE [employer] CHART. IT IS NOT A COPY OF THE [employer] PROGRESS NOTE. MTDD
== END ==
LOC: M PAIN 10:45
PROVIDERS: ATTEND Anesthesiology
DX: M51.16 Intervertebral disc disorders with radiculopathy, lumbar region (principal); M51.17 Intervertebral disc disorders with radiculopathy, lumbosacral region

== ENCOUNTER → 2019-09-16 | Outpatient (CLI) | payer OTHER ==
[~2019-09-16] MED LIST changes: +BUPIVACAINE HCL 0.25% 30 ML VIAL As Ordered ONE; +ISOVUE-M 300 61% 15ML VIAL (Q9967) As Ordered ONE; +LIDOCAINE 1% SDV INJ 30 ML VIAL As Ordered ONE; +MIDAZOLAM INJ 2 MG/2 ML VIAL (J2250) As Ordered ONE; +dexameTHASONE 10 MG/1 ML VIAL PRES.FREE (J1100) As Ordered ONE; +fentaNYL 100 MCG/2 ML INJECTION (J3010) As Ordered ONE
--- NOTE | 2019-09-16 13:50 | REP ---
Sacrum series: 67 images. History: Right-sided transforaminal injection for pain. 1 minute 17 seconds of fluoroscopy time is reported. Findings: A sequence of 67 last image hold fluoroscopically obtained spot radiographs of the sacrum document injection procedure. Electronically Signed by Obed Langston MD 09/16/2019 01:40 P
--- NOTE | 2019-09-19 04:45 | ECWPNPC ---
PATIENT NAME: MIKE LAI : 1980 GENDER: FEMALE VISIT DATE: 09/16/2019 DISCHARGE DATE: 09/16/19 1349 VISIT LOCKED DATE TIME: PHYSICIAN: CATHY QUIROGA MD RESOURCE: CATHY QUIROGA MD REASON FOR APPOINTMENT 1. RT L5/S1 TRANSFORAM LUMBAR EPI STEROID W/ IV SEDAT HISTORY OF PRESENT ILLNESS HISTORY OF PRESENT ILLNESS: PAIN THE PATIENT DESCRIBES THE PAIN... FALL RISK SCREENING: SCREENING :NO FALLS REPORTED IN THE LAST YEAR CURRENT MEDICATIONS TAKING EXCEDRIN MIGRAINE 250-250-65 MG TABLET 2 TABLETS NEEDED ORALLY EVERY 6 HRS, NOTES: NONE IN A WHILE TAKING FLUTICASONE PROPIONATE 50 MCG/ACT SUSPENSION 1 SPRAY IN EACH NOSTRIL NASALLY ONCE A DAY, NOTES: 09/16/2019 0730 TAKING NORCO 7.5-325 MG TABLET 1 TABLET NEEDED ORALLY Q8H PRN MDD3, NOTES: 09/15/2019 EVENING TAKING BUSPIRONE HCL 7.5 MG TABLET 1 TABLET ORALLY TWICE A DAY, NOTES: 09/16/2019 0730 NOT-TAKING ZYRTEC ALLERGY 10 MG TABLET 1 TABLET ORALLY ONCE A DAY NOT-TAKING FLONASE 50 MCG/ACT SUSPENSION 1 SPRAY IN EACH NOSTRIL NASALLY TWICE A DAY NOT-TAKING DELSYM 30 MG/5ML SUSPENSION EXTENDED RELEASE 10 ML NEEDED ORALLY EVERY 12 HRS NOT-TAKING SUDAFED 30 MG TABLET 1 TABLET NEEDED ORALLY EVERY 6 HRS MEDICATION LIST REVIEWED AND RECONCILED WITH THE PATIENT PAST MEDICAL HISTORY TENDONITIS- RAUL KNEE MIGRAINES URINARY STRESS INCONTINENCE ANXIETY, ?PTSD HISTORY OF TOBACCO USE DYSPEPSIA GRANADSO BILATERAL CARPAL TUNNEL SYNDROME CHRONIC BACK PAIN, LUMBAR DDD WITH RADICULOPATHY ALLERGIES GOLD: RASH - ALLERGY BLEACH: SMELL CAUSES NAUSEA/VOMITING, REDNESS AND SWELLING SURGICAL HISTORY LEFT BUTTOCK ABSCESS REMOVAL RIGHT THIGH ABSCESS REMOVAL BTL 2008 ALL TEETH REMOVED FAMILY HISTORY FATHER: 58 YRS, DIAGNOSED WITH HYPERTENSION, UNSPECIFIED HEART DISEASE, DIABETES MOTHER: ALIVE, FIBROMYALGIA, DRUG ABUSE, ANXIETY, DEPRESSION, UNSPECIFIED 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 2 SON(S) - HEALTHY. SOCIAL HISTORY GENERAL: TOBACCO USE ARE YOU A:FORMER SMOKER HOW LONG HAS IT BEEN SINCE YOU LAST SMOKED?1-5 YEARS SMOKING CESSATION INFORMATION GIVEN05/10/2017 HIV / HEP-C SCREENING HIV TEST OFFERED TO PATIENT:YES DATE OFFERED:07/03/2016 TEST ACCEPTED:NO HEP-C TEST OFFERED TO PATIENT:YES DATE OFFERED:07/03/2016 REASON:PATIENT DECLINED TEST ACCEPTED:NO REASON:PATIENT DECLINED OTHERS AT HOME: CHILD, OTHER NON-RELATIVE. EDUCATION LEVEL OF EDUCATION:NOT FINISHED COLLEGE DIET: REGULAR. LANGUAGE LANGUAGES SPOKEN:POLISH DOMESTIC VIOLENCE DO YOU FEEL SAFE IN YOUR ENVIRONMENT?YES BMI CARE GOAL FOLLOW-UP ABOVE NORMAL BMI FOLLOW-UPDIETARY NEEDS EDUCATION RECREATIONAL DRUG USE DRUG USE?NO PATIENT DENIES ABUSE OR MISSUSED OF ANY MEDICATION. PATIENT DENIES USE OF ANY ILLEGAL SUBSTANCE INCLUDING MARIJUANA OR COCAINE. 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 LEARNING BARRIERS / SPECIAL NEEDS CHANGE FROM LAST VISIT?NO BARRIERS TO LEARNING?NO HEARING IMPAIRED?NO VISION IMPAIRED?YES COGNITIVELY IMPAIRED?NO :CORRECTIVE LENSES READINESS TO LEARN?YES LEARNING PREFERENCES?NO LEARNING CAPABILITIES PRESENT?YES EMOTIONAL BARRIERS?NO SPECIAL DEVICES?NO LOAN ANALYST NEEDED?NO PAIN CLINIC PFS, CLERGY, PUBLIC HEALTH REFERRALS WAS THE PROVIDER NOTIFIED OF ANY PERTINENT INFO?YES N/A HAS THE PATIENT BEEN EDUCATED REGARDING HIS/HER PLAN OF CARE?YES HAS THE PATIENT BEEN EDUCATED REGARDING PAIN, THE RISK FOR PAIN, THE IMPORTANCE OF EFFECTIVE PAIN MANAGEMENT, AND THE PAIN ASSESSMENT PROCESS?YES LATEX QUESTIONNAIRE LATEX ALLERGY : HAVE YOU EVER DEVELOPED ANY TYPE OF REACTION AFTER HANDLING LATEX PRODUCTS SUCH RUBBER GLOVES, CONDOMS, DIAPHRAGMS, BALLOONS, SOCKS, OR UNDERWEAR?NO LATEX ALLERGY : HAVE YOU EVER DEVELOPED ANY TYPE OF REACTION DURING OR AFTER DENTAL APPOINTMENT, VAGINAL/RECTAL EXAMINATION, SURGICAL PROCEDURE, OR ANY OTHER EXPOSURE?NO DATE ASKED : 09/11/2019 LATEX RISK : HAVE YOU EVER HAD ANY DIFFICULTY BREATHING OR HIVES AFTER EATING OR HANDLING ANY FRUITS, OR VEGETABLES; SUCH KIWI, BANANAS, STONE FRUITS, OR CHESTNUTSNO LATEX RISK : DO YOU HAVE A PREVIOUS PERSONAL HISTORY OF MORE THAN NINE SURGERIES, SPINA BIFIDA, OR REPEATED CATHERIZATIONS? NO LATEX RISK : ARE YOU FREQUENTLY EXPOSED TO LATEX PRODUCTS IN YOUR OCCUPATION?NO CAFFEINE CAFFEINE USE?YES HOW OFTEN AND HOW MUCH? 1-2 CUP ADVANCE DIRECTIVE ADVANCE DIRECTIVE DISCUSSED WITH PATIENT:YES HCP VIGNESH HERRON [phone] [place] [id number] NONE MARITAL STATUS: SINGLE. 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 SEXUAL HX HAD SEX IN THE LAST 12 MONTHS (VAGINAL, ORAL, OR ANAL)?YES WITHMEN ONLY PREVENTION STRATEGIES DISCUSSED:CONDOMS USE PROTECTION?NO LMP:08/29/2016 HAVE YOU EVER HAD AN STD?NO HOSPITALIZATION/MAJOR DIAGNOSTIC PROCEDURE RELATED TO SURGERY REVIEW OF SYSTEMS REVIEWED BY: PROVIDER: . CONSTITUTIONAL: ANY CHANGE IN YOUR MEDICAL CONDITION? NO . CHILLS NO . FEVER NO . INFECTION: DO YOU HAVE NEW INFECTIONS? NO . DO YOU HAVE HISTORY OF MRSA? NO . MUSCULOSKELETAL: ANY NEW PATTERNS OF PAIN OR NUMBNESS? YES- LEFT SIDE HAS BEEN BOTHERING ME . GASTROENTEROLOGY: ANY NEW CHANGE IN BOWEL CONTROL? NO . GENITOURINARY: ANY NEW CHANGE IN BLADDER CONTROL? NO . IS THERE A CHANCE YOU COULD BE ? NO . HEMATOLOGY/LYMPH: DO YOU TAKE ANY BLOOD THINNERS? (FOR EXAMPLE- COUMADIN, PLAVIX, AGGRENOX, PLATEL, PRADAXA, OR XARELTO) NO . WHEN WAS YOUR LAST DOSE? DATE: TIME: . NEUROLOGY: HAVE YOU FALLEN IN THE PAST 12 MONTHS? NO . ANY NEW EXTREMITY NUMBNESS OR WEAKNESS? NO . CARDIOLOGY: DO YOU HAVE A PACEMAKER OR DEFIBRILLATOR? NO . RESPIRATORY: HAVE YOU BEEN SICK IN THE PAST WEEK? NO . FEVER NO . FLU LIKE SYMPTOMS? NO . COUGH NO . INTEGUMENTARY: DO YOU HAVE ANY RASHES OR OPEN SORES? NO . ALLERGIC/IMMUNO: ARE YOU ALLERGIC TO IV DYE? NO . ANY NEW ALLERGIES? NO . PSYCHIATRIC: DO YOU HAVE THOUGHTS OF HURTING YOURSELF OR SOMEONE ELSE? NO . ARE YOU ABUSED, NEGLECTED, OR IN AN UNSAFE ENVIRONMENT? NO . ENDOCRINOLOGY: ARE YOU DIABETIC? NO . OTHER: DO YOU NEED ANY PRESCRIPTIONS? NO . IF YES, PLEASE LIST: ____ . ANY NEW PROBLEMS WITH YOUR MEDICATIONS? NO . WHEN DID YOU LAST EAT? 09/15/2019 1700 . WHEN DID YOU LAST DRINK? 09/16/2019 0130 . WHAT DID YOU LAST DRINK? SPRITE . NAME OF PERSON DRIVING YOU HOME? VIGNESH . DO YOU HAVE ANY OTHER QUESTIONS OR CONCERNS NO . VITAL SIGNS WT 186.0 LBS, HT 67 IN, BMI 29.13 INDEX, BP 131/86 MM HG, HR 66 /MIN, RR 18 /MIN, TEMP 97.2 F, OXYGEN SAT % 96%, NA INITIALS AW 1100. ASSESSMENTS INTERVERTEBRAL DISC DISORDERS WITH RADICULOPATHY, LUMBOSACRAL REGION - M51.17 (PRIMARY) PROCEDURES PN LUMBAR TRANSFORAMINAL BLOCKS PRE PROCEDURE DIAGNOSIS LUMBAR DISC DISORDER WITH RADICULOPATHY POST PROCEDURE DIAGNOSIS LUMBAR DISC DISORDER WITH RADICULOPATHY PROCEDURE RIGHT L5 AND RIGHT S1 TRANSFORAMINAL EPIDURAL STEROID INJECTION UNDER FLUOROSCOPIC GUIDANCE SURGEON DR CATHY QUIROGA HIDES SOAKER NONE ANESTHESIA LOCAL WITH IV SEDATION PRE PROCEDURE NOTE PATIENT WITH HISTORY OF CHRONIC LOW BACK PAIN. I EVALUATED THE PATIENT AND REVIEWED THE CHART. I WENT OVER THE RISKS, ALTERNATIVES, AND BENEFITS ASSOCIATED WITH THIS PROCEDURE. THE PATIENT WOULD LIKE TO MOVE FORWARD WITH IV SEDATION DUE TO DISCOMFORT, PAIN, AND ANXIETY ASSOCIATED WITH THE PROCEDURE. THE PATIENT WOULD LIKE TO PROCEED AND GAVE CONSENT TO PERFORM THE PROCEDURE. THE PATIENT DENIES UNEXPLAINABLE WEIGHT LOSS, FEVER, CHILLS, OR CHANGES IN URINARY OR BOWEL CONTROL DESCRIPTION OF PROCEDURE THE PATIENT WAS BROUGHT TO THE PROCEDURE ROOM AND PLACED IN THE PRONE POSITION. THE LUMBOSACRAL AREA WAS CLEANED WITH BETADINE SOLUTION AND DRAPED ASEPTICALLY. THE PROCEDURE WAS DONE UNDER STERILE CONDITIONS. I CHECKED LATERALITY AND THE LEVEL WHERE THE PROCEDURE WAS GOING TO BE PERFORMED WITH THE PATIENT AND THE SUPPORTING STAFF AT THE MOMENT OF THE TIME OUT IN THE PROCEDURE ROOM. UNDER FLUOROSCOPIC GUIDANCE, TARGETS WERE SELECTED AT THE RIGHT TRANSFORAMINAL OPENING OF L5 AND THE RIGHT TRANSFORAMINAL OPENING OF S1. TARGET POINT WAS SELECTED AFTER LATERAL ROTATION AND TILT OF THE MAGNIFIER OF THE C-ARM. LIDOCAINE 0.5% WAS USED TO NUMB THE SKIN AND THE SUBCUTANEOUS TISSUE BELOW IT. AN EPIMED INTRODUCER 18-GAUGE WAS ADVANCED UNTIL WE WENT CLOSE TO THE SELECTED TRANSFORAMINAL OPENINGS. AFTER PROPER POSITION OF THE NEEDLES WAS ACHIEVED, A 22-GAUGE EPIMED NEEDLE WAS PLACED INSIDE OF THE INTRODUCER AND ADVANCED TO THE TRANSFORAMINAL OPENING OF THE SELECTED SITES. WHEN PROPER POSITION OF THE NEEDLE WAS ACHIEVED, ISOVUE M DYE 30%, 0.25 ML, WAS INJECTED SHOWING ADEQUATE SPREAD OF THE DYE. THIS WAS DONE UNDER DIGITAL SUBTRACTION AND ANGIOGRAPHY. THERE WAS NO VASCULAR UPDATE. THEN, A SOLUTION OF 2 ML OF BUPIVACAINE 0.25% AND DEXAMETHASONE 10 MG WAS INJECTED AT EACH SITE. THERE WAS NO EVIDENCE OF BLOOD, PARESTHESIA OR CEREBROSPINAL FLUID DURING THE PROCEDURE. THE PATIENT WAS SENT TO THE RECOVERY ROOM. THE PATIENT WAS MOVING THE EXTREMITIES AND DOING WELL. THERE WAS NO COMPLICATION DURING THE PROCEDURE. PATIENT RECEIVED VERSED 3 MG AND FENTANYL 150 MCG IV DIVIDED DOSES. FACE TO FACE TIME WAS 34 MINUTES. FLUOROSCOPY TIME WAS 77 SECONDS POST PROCEDURE NOTE THE PROCEDURE DONE WAS DISCUSSED WITH THE PATIENT. THE PATIENT WILL BE SEEN IN A FOLLOW UP IN THE NEXT FEW WEEKS TO SEE HOW THE INJECTION IS HELPING WITH HER PAIN. I AM LOOKING FOR LONG LASTING PAIN RELIEF FOR THE PATIENT WITH THIS INJECTION. INSTRUCTIONS WERE GIVEN, QUESTIONS WERE ANSWERED, AND THE PATIENT EXPRESSED UNDERSTANDING AND AGREES WITH THE PLAN. I, JOSE SCHWARZ, DOCUMENTED THE ABOVE INFORMATION ACTING A SCRIBE FOR DR. QUIROGA. I HAVE REVIEWED THE ABOVE DOCUMENT, WRITTEN BY JOSE SCHWARZ SCRIBE AND I VERIFY THAT IT IS ACCURATE. DIAGNOSTIC IMAGING [facility] FLUORO GUIDE SPINE INJECTION (PAIN)[id number] PROCEDURE CODES 67655 INJ FORAMEN EPIDURAL L/S, MODIFIERS: [place] 23628 INJ FORAMEN EPIDURAL ADD-ON, MODIFIERS: RT 6045F RADXPS IN END [id number] PXD [id number] MOD SED SAME PHYS/QHP 5/>YRS 11264 MOD SED SAME PHYS/QHP EA DISPOSITION & COMMUNICATION FOLLOW UP 3 WEEKS ELECTRONICALLY SIGNED BY CATHY QUIROGA MD, ON 09/18/2019 AT 09:36 AM EDT DISCLAIMER : THIS IS A VISIT SUMMARY EXTRACTED FROM THE [employer] CHART. IT IS NOT A COPY OF THE [employer] PROGRESS NOTE. MTDD
== END ==
LOC: M PAIN 11:00
PROVIDERS: ATTEND Anesthesiology
DX: M51.17 Intervertebral disc disorders with radiculopathy, lumbosacral region (principal); G43.909 Migraine, unspecified, not intractable, without status migrainosus; Z86.59 Personal history of other mental and behavioral disorders; Z87.891 Personal history of nicotine dependence; Z91.09 Other allergy status, other than to drugs and biological substances; Z79.899 Other long term (current) drug therapy
CPT/HCPCS: 64483; 64484; 99152; 99153; J1100; J2250; J3010; Q9967

== ENCOUNTER → 2019-10-07 | Outpatient (CLI) | payer OTHER ==
[~2019-10-07] MED LIST changes: -BUPIVACAINE HCL 0.25% 30 ML VIAL As Ordered ONE; -ISOVUE-M 300 61% 15ML VIAL (Q9967) As Ordered ONE; -LIDOCAINE 1% SDV INJ 30 ML VIAL As Ordered ONE; -MIDAZOLAM INJ 2 MG/2 ML VIAL (J2250) As Ordered ONE; -dexameTHASONE 10 MG/1 ML VIAL PRES.FREE (J1100) As Ordered ONE; -fentaNYL 100 MCG/2 ML INJECTION (J3010) As Ordered ONE
--- NOTE | 2019-10-10 01:50 | ECWPNPC ---
PATIENT NAME: MIKE LAI : 1980 GENDER: FEMALE VISIT DATE: 10/07/2019 DISCHARGE DATE: 10/07/19 1544 VISIT LOCKED DATE TIME: PHYSICIAN: SABIHA BERNARDO RESOURCE: SABIHA BERNARDO REASON FOR APPOINTMENT 1. POST PROC HISTORY OF PRESENT ILLNESS HISTORY OF PRESENT ILLNESS: PHONE CALL TO PATIENT WHO GIVES VERBAL PERMISSION FOR TELEPHONE VISIT TODAY. HAD RIGHT L5-S1 TRANSFORAMINAL INJECTION ON 09/16/2019. REPORTING SIGNIFICANT REDUCTION IN RIGHT LEG PAIN AND RIGHT LOW BACK PAIN SINCE PROCEDURE THAT CONTINUES TODAY. COMPLAINING OF LEFT LOW BACK PAIN AND RIGHT HIP/BUTTOCK PAIN. RATING PAIN VAS 3/10. DISCUSSED TREATMENT OPTIONS. PAIN THE PATIENT DESCRIBES THE PAIN... 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 2 SON(S) - HEALTHY. SOCIAL HISTORY GENERAL: TOBACCO USE ARE YOU A:FORMER SMOKER HOW LONG HAS IT BEEN SINCE YOU LAST SMOKED?1-5 YEARS SMOKING CESSATION INFORMATION GIVEN05/10/2017 HIV / HEP-C SCREENING HIV TEST OFFERED TO PATIENT:YES DATE OFFERED:07/03/2016 TEST ACCEPTED:NO HEP-C TEST OFFERED TO PATIENT:YES DATE OFFERED:07/03/2016 REASON:PATIENT DECLINED TEST ACCEPTED:NO REASON:PATIENT DECLINED OTHERS AT HOME: CHILD, OTHER NON-RELATIVE. EDUCATION LEVEL OF EDUCATION:NOT FINISHED COLLEGE DIET: REGULAR. LANGUAGE LANGUAGES SPOKEN:CHILEAN DOMESTIC VIOLENCE DO YOU FEEL SAFE IN YOUR ENVIRONMENT?YES NEW PATIENT PAIN DIARY TODAY'S VISITNOTES 10/07/2019 PATIENT DESCRIBES PAIN :ACHING, SHOOTING FROM 0-10, WHAT LEVEL IS YOUR PAIN TODAY?3 BMI CARE GOAL FOLLOW-UP ABOVE NORMAL BMI FOLLOW-UPDIETARY NEEDS EDUCATION RECREATIONAL DRUG USE DRUG USE?NO PATIENT DENIES ABUSE OR MISSUSED OF ANY MEDICATION. PATIENT DENIES USE OF ANY ILLEGAL SUBSTANCE INCLUDING MARIJUANA OR COCAINE. 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 LEARNING BARRIERS / SPECIAL NEEDS CHANGE FROM LAST VISIT?NO BARRIERS TO LEARNING?NO HEARING IMPAIRED?NO VISION IMPAIRED?YES COGNITIVELY IMPAIRED?NO :CORRECTIVE LENSES READINESS TO LEARN?YES LEARNING PREFERENCES?NO LEARNING CAPABILITIES PRESENT?YES EMOTIONAL BARRIERS?NO SPECIAL DEVICES?NO DOCUMENTATION MANAGER NEEDED?NO PAIN CLINIC PFS, CLERGY, PUBLIC HEALTH REFERRALS WAS THE PROVIDER NOTIFIED OF ANY PERTINENT INFO?YES N/A HAS THE PATIENT BEEN EDUCATED REGARDING HIS/HER PLAN OF CARE?YES HAS THE PATIENT BEEN EDUCATED REGARDING PAIN, THE RISK FOR PAIN, THE IMPORTANCE OF EFFECTIVE PAIN MANAGEMENT, AND THE PAIN ASSESSMENT PROCESS?YES LATEX QUESTIONNAIRE LATEX ALLERGY : HAVE YOU EVER DEVELOPED ANY TYPE OF REACTION AFTER HANDLING LATEX PRODUCTS SUCH RUBBER GLOVES, CONDOMS, DIAPHRAGMS, BALLOONS, SOCKS, OR UNDERWEAR?NO LATEX ALLERGY : HAVE YOU EVER DEVELOPED ANY TYPE OF REACTION DURING OR AFTER DENTAL APPOINTMENT, VAGINAL/RECTAL EXAMINATION, SURGICAL PROCEDURE, OR ANY OTHER EXPOSURE?NO LATEX RISK : HAVE YOU EVER HAD ANY DIFFICULTY BREATHING OR HIVES AFTER EATING OR HANDLING ANY FRUITS, OR VEGETABLES; SUCH KIWI, BANANAS, STONE FRUITS, OR CHESTNUTSNO LATEX RISK : DO YOU HAVE A PREVIOUS PERSONAL HISTORY OF MORE THAN NINE SURGERIES, SPINA BIFIDA, OR REPEATED CATHERIZATIONS? NO LATEX RISK : ARE YOU FREQUENTLY EXPOSED TO LATEX PRODUCTS IN YOUR OCCUPATION?NO DATE ASKED : 09/11/2019 CAFFEINE CAFFEINE USE?YES HOW OFTEN AND HOW MUCH? 1-2 CUP ADVANCE DIRECTIVE ADVANCE DIRECTIVE DISCUSSED WITH PATIENT:YES HCP VIGNESH HERRON [phone] YARSANI [id number] NONE MARITAL STATUS: SINGLE. 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 SEXUAL HX HAD SEX IN THE LAST 12 MONTHS (VAGINAL, ORAL, OR ANAL)?YES WITHMEN ONLY PREVENTION STRATEGIES DISCUSSED:CONDOMS USE PROTECTION?NO LMP:08/29/2016 HAVE YOU EVER HAD AN STD?NO HOSPITALIZATION/MAJOR DIAGNOSTIC PROCEDURE RELATED TO SURGERY REVIEW OF SYSTEMS REVIEWED BY: PROVIDER: SABIHA COLLADO . CONSTITUTIONAL: ANY CHANGE IN YOUR MEDICAL CONDITION? NO . CHILLS NO . FEVER NO . INFECTION: DO YOU HAVE NEW INFECTIONS? NO . DO YOU HAVE HISTORY OF MRSA? NO . MUSCULOSKELETAL: ANY NEW PATTERNS OF PAIN OR NUMBNESS? YES, PAIN IN LEFT LEG HAS RETURNED AND HAS A NEW PAIN TO BELOW THE RIGHT HIP - FEELS "STUCK" AT TIMES AND THAT IT NEEDS TO BE ADJUSTED . GASTROENTEROLOGY: ANY NEW CHANGE IN BOWEL CONTROL? NO . GENITOURINARY: ANY NEW CHANGE IN BLADDER CONTROL? NO . IS THERE A CHANCE YOU COULD BE ? NO . HEMATOLOGY/LYMPH: DO YOU TAKE ANY BLOOD THINNERS? (FOR EXAMPLE- COUMADIN, PLAVIX, AGGRENOX, PLATEL, PRADAXA, OR XARELTO) NO . WHEN WAS YOUR LAST DOSE? DATE: TIME: . NEUROLOGY: HAVE YOU FALLEN IN THE PAST 12 MONTHS? NO . ANY NEW EXTREMITY NUMBNESS OR WEAKNESS? NO . CARDIOLOGY: DO YOU HAVE A PACEMAKER OR DEFIBRILLATOR? NO . RESPIRATORY: HAVE YOU BEEN SICK IN THE PAST WEEK? NO . FEVER NO . FLU LIKE SYMPTOMS? NO . COUGH NO . INTEGUMENTARY: DO YOU HAVE ANY RASHES OR OPEN SORES? NO . ALLERGIC/IMMUNO: ARE YOU ALLERGIC TO IV DYE? NO . ANY NEW ALLERGIES? NO . PSYCHIATRIC: DO YOU HAVE THOUGHTS OF HURTING YOURSELF OR SOMEONE ELSE? NO . ARE YOU ABUSED, NEGLECTED, OR IN AN UNSAFE ENVIRONMENT? NO . ENDOCRINOLOGY: ARE YOU DIABETIC? NO . OTHER: DO YOU NEED ANY PRESCRIPTIONS? NO . IF YES, PLEASE LIST: ____ . ANY NEW PROBLEMS WITH YOUR MEDICATIONS? NO . WHEN DID YOU LAST EAT? ____ . WHEN DID YOU LAST DRINK? ____ . WHAT DID YOU LAST DRINK? ____ . NAME OF PERSON DRIVING YOU HOME? ____ . DO YOU HAVE ANY OTHER QUESTIONS OR CONCERNS NO . ASSESSMENTS INTERVERTEBRAL DISC DISORDER WITH RADICULOPATHY OF LUMBOSACRAL REGION - M51.17 (PRIMARY) TREATMENT INTERVERTEBRAL DISC DISORDER WITH RADICULOPATHY OF LUMBOSACRAL REGION CONTINUE NORCO TABLET, 7.5-325 MG, 1 TABLET NEEDED, ORALLY, Q8H PRN MDD3 NOTES: ISTOP REGISTRY REVIEWED AND DEMONSTRATES COMPLLIANCE. APPROXIMATELY 11 MINUTES WAS SPENT DURING PHONE VISIT TODAY REVIEWING MRI AND DISCUSSING TREATMENT OPTIONS. DISPOSITION & COMMUNICATION FOLLOW UP 4-6WKS PREPROCEDURE ELECTRONICALLY SIGNED BY TOBIAS KABA ON 10/09/2019 AT 04:04 PM EDT DISCLAIMER : THIS IS A VISIT SUMMARY EXTRACTED FROM THE [employer] [facility] CHART. IT IS NOT A COPY OF THE [employer] PROGRESS NOTE. MTDD
== END ==
LOC: M PAIN 14:00
PROVIDERS: ATTEND Nurse Practitioner Family
DX: M51.17 Intervertebral disc disorders with radiculopathy, lumbosacral region (principal); Z79.891 Long term (current) use of opiate analgesic; Z79.899 Other long term (current) drug therapy; Z87.891 Personal history of nicotine dependence; Z91.048 Other nonmedicinal substance allergy status

== ENCOUNTER → 2019-11-11 | Outpatient (CLI) | payer OTHER ==
--- NOTE | 2019-11-13 03:42 | ECWPNPC ---
PATIENT NAME: MIKE LAI : 1980 GENDER: FEMALE VISIT DATE: 11/11/2019 DISCHARGE DATE: 11/11/19 1142 VISIT LOCKED DATE TIME: PHYSICIAN: SABIHA BERNARDO RESOURCE: SABIHA BERNARDO REASON FOR APPOINTMENT 1. 4-6 WEEKS HISTORY OF PRESENT ILLNESS HISTORY OF PRESENT ILLNESS: HERE FOR FOLLOW-UP OF PERSISTENT LOW BACK PAIN. CHIEF AREA OF PAIN IS LEFT LOW BACK WITH RADIATION INTO LEFT LEG. HAS RESPONDED WELL TO TRANSFORAMINAL STEROID INJECTIONS IN THE PAST. FINDS CURRENT MEDICINE SOMEWHAT HELPFUL AT REDUCING PAIN AND KEEPING HER FUNCTIONAL. RATING PAIN LEVEL A 6/10 VAS. DISCUSSED TREATMENT OPTIONS. PAIN THE PATIENT DESCRIBES THE PAIN... FALL RISK SCREENING: SCREENING :NO FALLS REPORTED IN THE LAST YEAR CURRENT MEDICATIONS TAKING EXCEDRIN MIGRAINE 250-250-65 MG TABLET 2 TABLETS NEEDED ORALLY EVERY 6 HRS TAKING FLUTICASONE PROPIONATE 50 MCG/ACT SUSPENSION 1 SPRAY IN EACH NOSTRIL NASALLY ONCE A DAY TAKING HYDROCODONE-ACETAMINOPHEN 7.5-325 MG TABLET 1 TABLET NEEDED ORALLY Q8H PRN MDD3 NOT-TAKING NORCO 7.5-325 MG TABLET 1 TABLET NEEDED ORALLY Q8H PRN MDD3, NOTES: DUPLICATE MEDICATION LIST REVIEWED AND RECONCILED WITH THE PATIENT PAST MEDICAL HISTORY TENDONITIS- RAUL KNEE MIGRAINES URINARY STRESS INCONTINENCE ANXIETY, ?PTSD HISTORY OF TOBACCO USE DYSPEPSIA GRANADOS BILATERAL CARPAL TUNNEL SYNDROME CHRONIC BACK PAIN, 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 2 SON(S) - HEALTHY. SOCIAL HISTORY GENERAL: TOBACCO USE ARE YOU A:FORMER SMOKER HOW LONG HAS IT BEEN SINCE YOU LAST SMOKED?1-5 YEARS SMOKING CESSATION INFORMATION GIVEN05/10/2017 LATEX QUESTIONNAIRE LATEX ALLERGY : HAVE YOU EVER DEVELOPED ANY TYPE OF REACTION AFTER HANDLING LATEX PRODUCTS SUCH RUBBER GLOVES, CONDOMS, DIAPHRAGMS, BALLOONS, SOCKS, OR UNDERWEAR?NO LATEX ALLERGY : HAVE YOU EVER DEVELOPED ANY TYPE OF REACTION DURING OR AFTER DENTAL APPOINTMENT, VAGINAL/RECTAL EXAMINATION, SURGICAL PROCEDURE, OR ANY OTHER EXPOSURE?NO LATEX RISK : HAVE YOU EVER HAD ANY DIFFICULTY BREATHING OR HIVES AFTER EATING OR HANDLING ANY FRUITS, OR VEGETABLES; SUCH KIWI, BANANAS, STONE FRUITS, OR CHESTNUTSNO LATEX RISK : DO YOU HAVE A PREVIOUS PERSONAL HISTORY OF MORE THAN NINE SURGERIES, SPINA BIFIDA, OR REPEATED CATHERIZATIONS? NO LATEX RISK : ARE YOU FREQUENTLY EXPOSED TO LATEX PRODUCTS IN YOUR OCCUPATION?NO DATE ASKED : 09/11/2019 BMI CARE GOAL FOLLOW-UP ABOVE NORMAL BMI FOLLOW-UPDIETARY NEEDS EDUCATION ALCOHOL SCREENING DID YOU HAVE A DRINK CONTAINING ALCOHOL IN THE PAST YEAR?YES HOW OFTEN DID YOU HAVE SIX OR MORE DRINKS ON ONE OCCASION IN THE PAST YEAR?NEVER (0 POINTS) HOW MANY DRINKS DID YOU HAVE ON A TYPICAL DAY WHEN YOU WERE DRINKING IN THE PAST YEAR?1 OR 2 (0 POINTS) HOW OFTEN DID YOU HAVE A DRINK CONTAINING ALCOHOL IN THE PAST YEAR?MONTHLY OR LESS (1 POINT) POINTS1 INTERPRETATIONNEGATIVE RECREATIONAL DRUG USE DRUG USE?NO PATIENT DENIES ABUSE OR MISSUSED OF ANY MEDICATION. PATIENT DENIES USE OF ANY ILLEGAL SUBSTANCE INCLUDING MARIJUANA OR COCAINE. CAFFEINE CAFFEINE USE?YES HOW OFTEN AND HOW MUCH? 1-2 CUP SEXUAL HX HAD SEX IN THE LAST 12 MONTHS (VAGINAL, ORAL, OR ANAL)?YES WITHMEN ONLY PREVENTION STRATEGIES DISCUSSED:CONDOMS USE PROTECTION?NO LMP:08/29/2016 HAVE YOU EVER HAD AN STD?NO HIV / HEP-C SCREENING HIV TEST OFFERED TO PATIENT:YES DATE OFFERED:07/03/2016 TEST ACCEPTED:NO HEP-C TEST OFFERED TO PATIENT:YES DATE OFFERED:07/03/2016 REASON:PATIENT DECLINED TEST ACCEPTED:NO REASON:PATIENT DECLINED LUTHERAN [id number] NONE LANGUAGE LANGUAGES SPOKEN:VIETNAMESE EDUCATION LEVEL OF EDUCATION:NOT FINISHED COLLEGE LEARNING BARRIERS / SPECIAL NEEDS CHANGE FROM LAST VISIT?NO BARRIERS TO LEARNING?NO HEARING IMPAIRED?NO VISION IMPAIRED?YES COGNITIVELY IMPAIRED?NO :CORRECTIVE LENSES READINESS TO LEARN?YES LEARNING PREFERENCES?NO LEARNING CAPABILITIES PRESENT?YES EMOTIONAL BARRIERS?NO SPECIAL DEVICES?NO COUNTER INTELLIGENCE TECHNICIAN NEEDED?NO DOMESTIC VIOLENCE DO YOU FEEL SAFE IN YOUR ENVIRONMENT?YES 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 MARITAL STATUS: SINGLE. OTHERS AT HOME: CHILD, OTHER NON-RELATIVE. NEW PATIENT PAIN DIARY TODAY'S VISITNOTES 11/11/2019 PATIENT DESCRIBES PAIN :ACHING, SHOOTING FROM 0-10, WHAT LEVEL IS YOUR PAIN TODAY?6 PAIN CLINIC PFS, CLERGY, PUBLIC HEALTH REFERRALS WAS THE PROVIDER NOTIFIED OF ANY PERTINENT INFO?YES N/A HAS THE PATIENT BEEN EDUCATED REGARDING HIS/HER PLAN OF CARE?YES HAS THE PATIENT BEEN EDUCATED REGARDING PAIN, THE RISK FOR PAIN, THE IMPORTANCE OF EFFECTIVE PAIN MANAGEMENT, AND THE PAIN ASSESSMENT PROCESS?YES ADVANCE DIRECTIVE ADVANCE DIRECTIVE DISCUSSED WITH PATIENT:YES HCP VIGNESH HERRON [phone] HOSPITALIZATION/MAJOR DIAGNOSTIC PROCEDURE RELATED TO SURGERY REVIEW OF SYSTEMS REVIEWED BY: PROVIDER: SABIHA COLLADO . CONSTITUTIONAL: ANY CHANGE IN YOUR MEDICAL CONDITION? NO . CHILLS NO . FEVER NO . INFECTION: DO YOU HAVE NEW INFECTIONS? NO . DO YOU HAVE HISTORY OF MRSA? NO . MUSCULOSKELETAL: ANY NEW PATTERNS OF PAIN OR NUMBNESS? YES, PAIN IN RIGHT HIP JOINT WHEN WALKING - STARTED IN SEPTEMBER SHORTLY AFTER HER PROCEDURE . GASTROENTEROLOGY: ANY NEW CHANGE IN BOWEL CONTROL? NO . GENITOURINARY: ANY NEW CHANGE IN BLADDER CONTROL? NO . IS THERE A CHANCE YOU COULD BE ? NO . HEMATOLOGY/LYMPH: DO YOU TAKE ANY BLOOD THINNERS? (FOR EXAMPLE- COUMADIN, PLAVIX, AGGRENOX, PLATEL, PRADAXA, OR XARELTO) NO . WHEN WAS YOUR LAST DOSE? DATE: TIME: . NEUROLOGY: HAVE YOU FALLEN IN THE PAST 12 MONTHS? NO . ANY NEW EXTREMITY NUMBNESS OR WEAKNESS? NO . CARDIOLOGY: DO YOU HAVE A PACEMAKER OR DEFIBRILLATOR? NO . RESPIRATORY: HAVE YOU BEEN SICK IN THE PAST WEEK? NO . FEVER NO . FLU LIKE SYMPTOMS? NO . COUGH NO . INTEGUMENTARY: DO YOU HAVE ANY RASHES OR OPEN SORES? NO . ALLERGIC/IMMUNO: ARE YOU ALLERGIC TO IV DYE? NO . ANY NEW ALLERGIES? NO . PSYCHIATRIC: DO YOU HAVE THOUGHTS OF HURTING YOURSELF OR SOMEONE ELSE? NO . ARE YOU ABUSED, NEGLECTED, OR IN AN UNSAFE ENVIRONMENT? NO . ENDOCRINOLOGY: ARE YOU DIABETIC? NO . OTHER: DO YOU NEED ANY PRESCRIPTIONS? NO . IF YES, PLEASE LIST: ____ . ANY NEW PROBLEMS WITH YOUR MEDICATIONS? NO . WHEN DID YOU LAST EAT? ____ . WHEN DID YOU LAST DRINK? ____ . WHAT DID YOU LAST DRINK? ____ . NAME OF PERSON DRIVING YOU HOME? ____ . DO YOU HAVE ANY OTHER QUESTIONS OR CONCERNS NO . VITAL SIGNS WT 190 LBS, HT 67 IN, BMI 29.75 INDEX, BP 145/87 MM HG, HR 97 /MIN, RR 18 /MIN, TEMP 97.4 F, OXYGEN SAT % 98%, SAFE IN ENV? (Y/N) YES, NA INITIALS AW 1020, REVIEWED BY: JS. EXAMINATION GENERAL EXAMINATION: GENERAL AWAKE,ALERT ,PLEASANT . PSYCH AFFECT NORMAL . LUNGS: LUNG RICO ARE CLEAR TO AUSCULTATION BILATERALLY. GOOD MOVEMENT OF AIR . HEART: S1, S2 IN A REGULAR RATE AND RHYTHM. NO SIGNIFICANT MURMURS, RUBS OR GALLOPS NOTED . MUSCULOSKELETAL:MILD WEAKNESS OVER BILAT. LOWER EXTREMITIES. LUMBAR: PALPATION: + FOR PAIN OVER L/S SPINE. + FOR PAIN OVER L/S PARASPINALS POSITIVE SLE AT 45 DEGREES LEFT. NEUROLOGIC EXAM: NORMAL SENSATION LIGHT TOUCH BILAT. LOWER EXTREMITIES. DIAGNOSTIC TESTS REVIEWED MRI L/S SPINE-08/20/18. ASSESSMENTS INTERVERTEBRAL DISC DISORDER WITH RADICULOPATHY OF LUMBOSACRAL REGION - M51.17 (PRIMARY) TREATMENT INTERVERTEBRAL DISC DISORDER WITH RADICULOPATHY OF LUMBOSACRAL REGION CONTINUE HYDROCODONE-ACETAMINOPHEN TABLET, 7.5-325 MG, 1 TABLET NEEDED, ORALLY, Q8H PRN MDD3 NOTES: LEFT L5/S1 TRANSFORAMINAL STEROID INJECTION WITH IV SED , ISTOP REGISTRY REVIEWED AND DEMONSTRATES COMPLLIANCE. BRINGS IN MEDICATIONS WHICH IS APPROPRIATE FOR WHAT WAS DISPENSED. RECENT URINE TOXICOLOGY REVIEWED. NO UNAUTHORIZED MEDICATIONS. NO ILLICIT SUBSTANCES AND PRESCRIBED MEDICATIONS WERE PRESENT. URINE TOX TODAY , RISKS OF NARCOTIC/OPIOD MEDICATIONS INCLUDES BUT IS NOT LIMITED TO RISK OF DEPENDANCE/DEVELOPMENT OF ADDICTION, MOOD DISTURBANCE AND DEPRESSION, OSTEOPOROSIS, HORMONAL AND LABIDAL CHANGES, RESPIRATORY DEPRESSION AND . PATIENT IS ADVISED NOT TO DRIVE OR DRINK ALCOHOL WHILE ON THESE MEDICATIONS. PREVENTIVE MEDICINE PAIN CLINIC TEACHING: PROCEDURE TEACHING REVIEWED INFORMATION ON TRANSFORAMINAL STEROID INJECTION PROCEDURE WITH PATIENT. ALSO REVIEWED PRE-PROCEDURE INSTRUCTIONS. PATIENT VERBALIZED AN UNDERSTANDING. GISELA CADE 11/11/2019 11:43:56 AM > . PROCEDURE CODES FA211 ESTABILISHED PATIENT [facility] CHARGE DISPOSITION & COMMUNICATION FOLLOW UP POST/IV SED APT DR Page (REASON: LEFT L5/S1 TRANSFORAMINAL STEROID WITH IV SEDOID INJECTION) ELECTRONICALLY SIGNED BY TOBIAS KABA ON 11/12/2019 AT 01:03 PM EDT DISCLAIMER : THIS IS A VISIT SUMMARY EXTRACTED FROM THE [employer] CHART. IT IS NOT A COPY OF THE [employer] PROGRESS NOTE. DOROTHEA
== END ==
LOC: M PAIN 10:45
PROVIDERS: ATTEND Nurse Practitioner Family
DX: M51.17 Intervertebral disc disorders with radiculopathy, lumbosacral region (principal); Z79.891 Long term (current) use of opiate analgesic; Z87.891 Personal history of nicotine dependence; Z91.048 Other nonmedicinal substance allergy status

== ENCOUNTER → 2019-11-18 | Outpatient (CLI) | payer OTHER ==
--- NOTE | 2019-11-20 23:57 | ECWPNPC ---
PATIENT NAME: MIKE LAI : 1980 GENDER: FEMALE VISIT DATE: 11/18/2019 DISCHARGE DATE: 11/18/19 1618 VISIT LOCKED DATE TIME: PHYSICIAN: CATHY QUIROGA MD RESOURCE: CAHTY QUIROGA MD REASON FOR APPOINTMENT 1. PRE SEDATE HISTORY OF PRESENT ILLNESS HISTORY OF PRESENT ILLNESS: PAIN THE PATIENT DESCRIBES THE PAIN... 39 YEAR OLD FEMALE PATIENT WITH A HISTORY OF CHRONIC LOW BACK AND LEG PAIN. THE PATIENT DESCRIBES HER PAIN ACHING AND SHOOTING WITH A PAIN SCORE OF 6-9/10 DEPENDING ON PHYSICAL ACTIVITY. THE PATIENT STATES HER PAIN BEGINS IN HER LOW BACK AND RADIATES DOWN MAINLY HER LEFT LEG. THE PATIENT SAYS HER PAIN IS AFFECTING HER ABILITY TO PERFORM HER DAILY ACTIVITIES SUCH CLEANING, GROCERY SHOPPING, AND COOKING. THE PATIENT DENIES UNEXPLAINED WEIGHT LOSS, FEVER, CHILLS, NEW CHANGES IN HER URINARY OR BOWEL CONTROL. FALL RISK SCREENING: SCREENING :NO FALLS REPORTED IN THE LAST YEAR CURRENT MEDICATIONS TAKING EXCEDRIN MIGRAINE 250-250-65 MG TABLET 2 TABLETS NEEDED ORALLY EVERY 6 HRS TAKING FLUTICASONE PROPIONATE 50 MCG/ACT SUSPENSION 1 SPRAY IN EACH NOSTRIL NASALLY ONCE A DAY TAKING HYDROCODONE-ACETAMINOPHEN 7.5-325 MG TABLET 1 TABLET NEEDED ORALLY Q8H PRN MDD3 NOT-TAKING NORCO 7.5-325 MG TABLET 1 TABLET NEEDED ORALLY Q8H PRN MDD3, NOTES: DUPLICATE MEDICATION LIST REVIEWED AND RECONCILED WITH THE PATIENT PAST MEDICAL HISTORY TENDONITIS- RAUL KNEE MIGRAINES URINARY STRESS INCONTINENCE ANXIETY, ?PTSD HISTORY OF TOBACCO USE DYSPEPSIA GRANADOS BILATERAL CARPAL TUNNEL SYNDROME CHRONIC BACK PAIN, 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 2 SON(S) - HEALTHY. SOCIAL HISTORY GENERAL: TOBACCO USE ARE YOU A:FORMER SMOKER HOW LONG HAS IT BEEN SINCE YOU LAST SMOKED?1-5 YEARS SMOKING CESSATION INFORMATION GIVEN05/10/2017 LATEX QUESTIONNAIRE LATEX ALLERGY : HAVE YOU EVER DEVELOPED ANY TYPE OF REACTION AFTER HANDLING LATEX PRODUCTS SUCH RUBBER GLOVES, CONDOMS, DIAPHRAGMS, BALLOONS, SOCKS, OR UNDERWEAR?NO LATEX ALLERGY : HAVE YOU EVER DEVELOPED ANY TYPE OF REACTION DURING OR AFTER DENTAL APPOINTMENT, VAGINAL/RECTAL EXAMINATION, SURGICAL PROCEDURE, OR ANY OTHER EXPOSURE?NO DATE ASKED : 09/11/2019 LATEX RISK : HAVE YOU EVER HAD ANY DIFFICULTY BREATHING OR HIVES AFTER EATING OR HANDLING ANY FRUITS, OR VEGETABLES; SUCH KIWI, BANANAS, STONE FRUITS, OR CHESTNUTSNO LATEX RISK : DO YOU HAVE A PREVIOUS PERSONAL HISTORY OF MORE THAN NINE SURGERIES, SPINA BIFIDA, OR REPEATED CATHERIZATIONS? NO LATEX RISK : ARE YOU FREQUENTLY EXPOSED TO LATEX PRODUCTS IN YOUR OCCUPATION?NO BMI CARE GOAL FOLLOW-UP ABOVE NORMAL BMI FOLLOW-UPDIETARY NEEDS EDUCATION ALCOHOL SCREENING DID YOU HAVE A DRINK CONTAINING ALCOHOL IN THE PAST YEAR?YES HOW OFTEN DID YOU HAVE SIX OR MORE DRINKS ON ONE OCCASION IN THE PAST YEAR?NEVER (0 POINTS) HOW MANY DRINKS DID YOU HAVE ON A TYPICAL DAY WHEN YOU WERE DRINKING IN THE PAST YEAR?1 OR 2 (0 POINTS) HOW OFTEN DID YOU HAVE A DRINK CONTAINING ALCOHOL IN THE PAST YEAR?MONTHLY OR LESS (1 POINT) POINTS1 INTERPRETATIONNEGATIVE RECREATIONAL DRUG USE DRUG USE?NO PATIENT DENIES ABUSE OR MISSUSED OF ANY MEDICATION. PATIENT DENIES USE OF ANY ILLEGAL SUBSTANCE INCLUDING MARIJUANA OR COCAINE. CAFFEINE CAFFEINE USE?YES HOW OFTEN AND HOW MUCH? 1-2 CUP SEXUAL HX HAD SEX IN THE LAST 12 MONTHS (VAGINAL, ORAL, OR ANAL)?YES WITHMEN ONLY PREVENTION STRATEGIES DISCUSSED:CONDOMS USE PROTECTION?NO LMP:08/29/2016 HAVE YOU EVER HAD AN STD?NO HIV / HEP-C SCREENING HIV TEST OFFERED TO PATIENT:YES DATE OFFERED:07/03/2016 TEST ACCEPTED:NO HEP-C TEST OFFERED TO PATIENT:YES DATE OFFERED:07/03/2016 REASON:PATIENT DECLINED TEST ACCEPTED:NO REASON:PATIENT DECLINED [employer] [id number] NONE LANGUAGE LANGUAGES SPOKEN:LIBERIAN EDUCATION LEVEL OF EDUCATION:NOT FINISHED COLLEGE LEARNING BARRIERS / SPECIAL NEEDS CHANGE FROM LAST VISIT?NO BARRIERS TO LEARNING?NO HEARING IMPAIRED?NO VISION IMPAIRED?YES COGNITIVELY IMPAIRED?NO :CORRECTIVE LENSES READINESS TO LEARN?YES LEARNING PREFERENCES?NO LEARNING CAPABILITIES PRESENT?YES EMOTIONAL BARRIERS?NO SPECIAL DEVICES?NO LIGHTING EQUIPMENT OPERATOR NEEDED?NO DOMESTIC VIOLENCE DO YOU FEEL SAFE IN YOUR ENVIRONMENT?YES 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 MARITAL STATUS: SINGLE. OTHERS AT HOME: CHILD, OTHER NON-RELATIVE. NEW PATIENT PAIN DIARY TODAY'S VISITNOTES 11/18/2019 PATIENT DESCRIBES PAIN :ACHING, SHOOTING FROM 0-10, WHAT LEVEL IS YOUR PAIN TODAY?4 PATIENT STATES HER PAIN RANGES FROM 2-8 PRECIPITATING FACTORS EVERYTHING, MOVEMENT ALLEVIATING FACTORS NOTHING MAKE IT BETTER, TEMPORARY RELIEF FROM A HEATING PAD, SOMETIMES THE MEDS HELP IMPACT ON FUNCTION NOT ABLE TO DO ALL ACTIVITIES SHE WOULD LIKE TO DO PAIN CLINIC PFS, CLERGY, PUBLIC HEALTH REFERRALS WAS THE PROVIDER NOTIFIED OF ANY PERTINENT INFO?YES N/A HAS THE PATIENT BEEN EDUCATED REGARDING HIS/HER PLAN OF CARE?YES HAS THE PATIENT BEEN EDUCATED REGARDING PAIN, THE RISK FOR PAIN, THE IMPORTANCE OF EFFECTIVE PAIN MANAGEMENT, AND THE PAIN ASSESSMENT PROCESS?YES ADVANCE DIRECTIVE ADVANCE DIRECTIVE DISCUSSED WITH PATIENT:YES HCP VIGNESH HERRON [phone] HOSPITALIZATION/MAJOR DIAGNOSTIC PROCEDURE RELATED TO SURGERY REVIEW OF SYSTEMS REVIEWED BY: PROVIDER: CATHY QUIROGA MD . CONSTITUTIONAL: ANY CHANGE IN YOUR MEDICAL CONDITION? NO . CHILLS NO . FEVER NO . INFECTION: DO YOU HAVE NEW INFECTIONS? NO . DO YOU HAVE HISTORY OF MRSA? NO . MUSCULOSKELETAL: ANY NEW PATTERNS OF PAIN OR NUMBNESS? NO . GASTROENTEROLOGY: ANY NEW CHANGE IN BOWEL CONTROL? NO . GENITOURINARY: ANY NEW CHANGE IN BLADDER CONTROL? NO . IS THERE A CHANCE YOU COULD BE ? NO . HEMATOLOGY/LYMPH: DO YOU TAKE ANY BLOOD THINNERS? (FOR EXAMPLE- COUMADIN, PLAVIX, AGGRENOX, PLATEL, PRADAXA, OR XARELTO) NO . WHEN WAS YOUR LAST DOSE? DATE: TIME: . NEUROLOGY: HAVE YOU FALLEN IN THE PAST 12 MONTHS? NO . ANY NEW EXTREMITY NUMBNESS OR WEAKNESS? NO . CARDIOLOGY: DO YOU HAVE A PACEMAKER OR DEFIBRILLATOR? NO . RESPIRATORY: HAVE YOU BEEN SICK IN THE PAST WEEK? NO . FEVER NO . FLU LIKE SYMPTOMS? NO . COUGH NO . INTEGUMENTARY: DO YOU HAVE ANY RASHES OR OPEN SORES? NO . ALLERGIC/IMMUNO: ARE YOU ALLERGIC TO IV DYE? NO . ANY NEW ALLERGIES? NO . PSYCHIATRIC: DO YOU HAVE THOUGHTS OF HURTING YOURSELF OR SOMEONE ELSE? NO . ARE YOU ABUSED, NEGLECTED, OR IN AN UNSAFE ENVIRONMENT? NO . ENDOCRINOLOGY: ARE YOU DIABETIC? NO . OTHER: DO YOU NEED ANY PRESCRIPTIONS? NO . IF YES, PLEASE LIST: ____ . ANY NEW PROBLEMS WITH YOUR MEDICATIONS? NO . WHEN DID YOU LAST EAT? ____ . WHEN DID YOU LAST DRINK? ____ . WHAT DID YOU LAST DRINK? ____ . NAME OF PERSON DRIVING YOU HOME? ____ . DO YOU HAVE ANY OTHER QUESTIONS OR CONCERNS NO . VITAL SIGNS WT 190 LBS, HT 67 IN, BMI 29.75 INDEX, BP 154/95 MM HG, HR 71 /MIN, RR 18 /MIN, TEMP 97.1 F, OXYGEN SAT % 100%, SAFE IN ENV? (Y/N) YES, NA INITIALS AW 1352, REVIEWED BY: ARNOLDO. EXAMINATION GENERAL EXAMINATION: PATIENT IS ALERT O X 3 AND COOPERATIVE., LUNGS CLEAR, TO AUSCULTATION. HEART: NO MURMURS OR GALLOPS; FACIAL CRANIAL NERVES ARE GROSSLY NORMAL. GOOD SYMMETRY OF FACIAL MUSCLE MOVEMENT. NORMAL VISUAL [place]. TENDERNESS OVER THE PARASPINAL MUSCLE GROUP OF THE LOW BACK. STRAIGHT LEG RAISE OF THE LEFT LEG IS POSITIVE AT 25 DEGREES FOR RADICULOPATHY. MRI OF THE LUMBAR SPINE DONE ON 08/20/2018 SHOWS BULGING DISCS AT L4-L5 AND L5-S1 LEVELS. ASSESSMENTS INTERVERTEBRAL DISC DISORDERS WITH RADICULOPATHY, LUMBAR REGION - M51.16 (PRIMARY) INTERVERTEBRAL DISC DISORDERS WITH RADICULOPATHY, LUMBOSACRAL REGION - M51.17 TREATMENT INTERVERTEBRAL DISC DISORDERS WITH RADICULOPATHY, LUMBAR REGION CLINICAL NOTES: WE DISCUSSED SEVERAL ISSUES WITH MS. LAI'S PAIN MANAGEMENT CASE. DUE TO THE LUMBAR RADICULOPATHY, I WOULD LIKE TO MOVE FORWARD WITH A LEFT L5, LEFT S1 TRANSFORAMINAL LUMBAR EPIDURAL STEROID INJECTION AT THIS TIME. THE PATIENT WOULD LIKE TO MOVE FORWARD WITH IV SEDATION DUE TO DISCOMFORT, PAIN, AND ANXIETY ASSOCIATED WITH THE PROCEDURE. WE DISCUSSED THE BENEFITS, RISKS, AND ALTERNATIVES OF THE INJECTION AND THE PATIENT WOULD LIKE TO PROCEED. I AM LOOKING FOR LONG LASTING PAIN RELIEF FROM THIS INJECTION FOR THE PATIENT. THE PATIENT WILL FOLLOW UP IN SEVERAL WEEKS AFTER HER INJECTION. INSTRUCTIONS WERE GIVEN, QUESTIONS WERE ANSWERED, PATIENT REPORTS UNDERSTANDING AND AGREES WITH THE PLAN. I, JOSE SCHWARZ, DOCUMENTED THE ABOVE INFORMATION ACTING A SCRIBE FOR DR. QUIROGA. I HAVE REVIEWED THE ABOVE DOCUMENT, WRITTEN BY JOSE HARPER AND I VERIFY THAT IT IS ACCURATE. . PROCEDURE CODES G8427 CURRENT MEDS W/DOSAGES DOCUMENTED G8730 PAIN ASSESS POS TOOL F/U PLAN DOC FA211 ESTABILISHED PATIENT [facility] CHARGE DISPOSITION & COMMUNICATION FOLLOW UP 1 WEEK (REASON: LT L5, S1 TRANS LESI W/ IV SEDATE) ELECTRONICALLY SIGNED BY CATHY QUIROGA MD, MD ON 11/20/2019 AT 04:29 PM EDT DISCLAIMER : THIS IS A VISIT SUMMARY EXTRACTED FROM THE [employer] CHART. IT IS NOT A COPY OF THE [employer] PROGRESS NOTE. MTDD
== END ==
LOC: M PAIN 14:15
PROVIDERS: ATTEND Anesthesiology
DX: M51.16 Intervertebral disc disorders with radiculopathy, lumbar region (principal); M51.17 Intervertebral disc disorders with radiculopathy, lumbosacral region; G89.29 Other chronic pain; G43.909 Migraine, unspecified, not intractable, without status migrainosus; Z86.59 Personal history of other mental and behavioral disorders; Z87.891 Personal history of nicotine dependence; Z91.09 Other allergy status, other than to drugs and biological substances; Z79.899 Other long term (current) drug therapy

== ENCOUNTER → 2019-12-01 | Outpatient (CLI) | payer OTHER | LOC: M LABSMTC 09:46 | PROVIDERS: ATTEND Anesthesiology | DX: Z03.818 Encounter for observation for suspected exposure to other biological agents ruled out (principal); Z11.59 Encounter for screening for other viral diseases | CPT/HCPCS: C9803; U0003 ==

== ENCOUNTER → 2019-12-04 | Outpatient (CLI) | payer OTHER ==
[~2019-12-04] MED LIST changes: +BUPIVACAINE HCL 0.25% 30ML VIAL As Ordered ONE; +ISOVUE-M 300 61% 15ML VIAL As Ordered ONE; +LIDOCAINE 1% SDV 30ML VIAL As Ordered ONE; +MIDAZOLAM INJ 2MG/2ML VIAL (J2250 PER 1MG) As Ordered ONE; +dexameTHASONE 10MG/1ML VIAL PRES.FREE (J1100 PER 1MG) As Ordered ONE; +fentaNYL 100 MCG/2 ML INJECTION (J3010) As Ordered ONE
--- NOTE | 2019-12-04 15:31 | REP ---
C-ARM VIEWS LOWER LUMBAR SPINE: CLINICAL HISTORY: Pain. C-arm views of the lower lumbar spine are performed during transforaminal injection by Dr. Hatch. [place] are seen along the margin of the lower lumbar spine and a small amount of contrast is injected. 2 minutes 17 seconds of fluoroscopy time is utilized. Electronically Signed by Marcellus Mcintosh MD 12/04/2019 03:59 P
--- NOTE | 2019-12-08 01:58 | ECWPNPC ---
PATIENT NAME: MIKE LAI : 1980 GENDER: FEMALE VISIT DATE: 12/04/2019 DISCHARGE DATE: 12/04/19 1317 VISIT LOCKED DATE TIME: PHYSICIAN: CATHY QUIROGA MD RESOURCE: CATHY QUIROGA MD REASON FOR APPOINTMENT 1. LEFT L5/S1 TRANSFORAMINAL LUMBAR EPIDURAL W/ IV SEDATE HISTORY OF PRESENT ILLNESS GENERAL: -. FALL RISK SCREENING: SCREENING :NO FALLS REPORTED IN THE LAST YEAR PAIN SCREENING: PATIENT HAS A COMPLAINT OF ACUTE OR CHRONIC PAIN :YES INTENSITY OF PAIN (SCALE OF 1 TO 10):8 WHAT DOES YOUR PAIN FEEL LIKE:ACHING, CONTINOUS PAIN IS INCREASED BY: EVERYTHING PAIN IS DECREASED BY: MEDS NURSING NOTE: -. PAIN CENTER INTAKE QUESTIONS: DO YOU HAVE A HISTORY OF MRSA? :NO DO YOU TAKE A BLOOD THINNERS? :NO DO YOU HAVE ANY BLEEDING DISORDERS? :NO ANY NEW NUMBNESS OR WEAKNESS IN YOUR LEGS OR ARMS? :NO ANY PACEMAKER,DEFIBRILLATOR, OR DORSAL COLUMN STIMULATOR? :NO DO YOU HAVE ANY RASHES OR OPEN SORES? :NO ARE YOU ALLERGIC TO IV DYE? :NO ARE YOU DIABETIC? :NO ANY NEW PROBLEMS WITH YOUR MEDICATIONS? :NO HAVE YOU RECEIVED A VACCINE IN THE PAST 30 DAYS? :NO DO YOU PLAN TO RECEIVE A VACCINE IN THE NEXT 21 DAYS? :NO ANY HISTORY OF SEIZURES? :NO ANY HISTORY OF CARDIAC ISSUES OR EVENTS? :NO DO YOU HAVE SLEEP APNEA? :NO ANY RECENT HEAD INJURY? :NO DO YOU HAVE ANY NEW INFECTIONS? :NO WHEN DID YOU LAST EAT? : -12/03/19 1500 WHEN DID YOU LAST DRINK? : -12/04/19 0800 WHAT DID YOU LAST DRINK? : -WATER NAME OF PERSON DRIVING YOU HOME? : -VIGNESH DO YOU HAVE ANY OTHER QUESTIONS OR CONCERNS? : - CURRENT MEDICATIONS TAKING EXCEDRIN MIGRAINE 250-250-65 MG TABLET 2 TABLETS NEEDED ORALLY EVERY 6 HRS, NOTES: NONE LATELY TAKING FLUTICASONE PROPIONATE 50 MCG/ACT SUSPENSION 1 SPRAY IN EACH NOSTRIL NASALLY ONCE A DAY, NOTES: 12/03/19 TAKING HYDROCODONE-ACETAMINOPHEN 7.5-325 MG TABLET 1 TABLET NEEDED ORALLY Q8H PRN MDD3, NOTES: 12/03/19 NOT-TAKING NORCO 7.5-325 MG TABLET 1 TABLET NEEDED ORALLY Q8H PRN MDD3, NOTES: DUPLICATE MEDICATION LIST REVIEWED AND RECONCILED WITH THE PATIENT PAST MEDICAL HISTORY TENDONITIS- RAUL KNEE MIGRAINES URINARY STRESS INCONTINENCE ANXIETY, ?PTSD HISTORY OF TOBACCO USE DYSPEPSIA GRANADOS BILATERAL CARPAL TUNNEL SYNDROME CHRONIC BACK PAIN, 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 2 SON(S) - HEALTHY. SOCIAL HISTORY GENERAL: TOBACCO USE ARE YOU A:FORMER SMOKER HOW LONG HAS IT BEEN SINCE YOU LAST SMOKED?1-5 YEARS SMOKING CESSATION INFORMATION GIVEN05/10/2017 LATEX QUESTIONNAIRE LATEX ALLERGY : HAVE YOU EVER DEVELOPED ANY TYPE OF REACTION AFTER HANDLING LATEX PRODUCTS SUCH RUBBER GLOVES, CONDOMS, DIAPHRAGMS, BALLOONS, SOCKS, OR UNDERWEAR?NO LATEX ALLERGY : HAVE YOU EVER DEVELOPED ANY TYPE OF REACTION DURING OR AFTER DENTAL APPOINTMENT, VAGINAL/RECTAL EXAMINATION, SURGICAL PROCEDURE, OR ANY OTHER EXPOSURE?NO DATE ASKED : 09/11/2019 LATEX RISK : HAVE YOU EVER HAD ANY DIFFICULTY BREATHING OR HIVES AFTER EATING OR HANDLING ANY FRUITS, OR VEGETABLES; SUCH KIWI, BANANAS, STONE FRUITS, OR CHESTNUTSNO LATEX RISK : DO YOU HAVE A PREVIOUS PERSONAL HISTORY OF MORE THAN NINE SURGERIES, SPINA BIFIDA, OR REPEATED CATHERIZATIONS? NO LATEX RISK : ARE YOU FREQUENTLY EXPOSED TO LATEX PRODUCTS IN YOUR OCCUPATION?NO BMI CARE GOAL FOLLOW-UP ABOVE NORMAL BMI FOLLOW-UPDIETARY NEEDS EDUCATION ALCOHOL SCREENING DID YOU HAVE A DRINK CONTAINING ALCOHOL IN THE PAST YEAR?YES HOW OFTEN DID YOU HAVE SIX OR MORE DRINKS ON ONE OCCASION IN THE PAST YEAR?NEVER (0 POINTS) HOW MANY DRINKS DID YOU HAVE ON A TYPICAL DAY WHEN YOU WERE DRINKING IN THE PAST YEAR?1 OR 2 (0 POINTS) HOW OFTEN DID YOU HAVE A DRINK CONTAINING ALCOHOL IN THE PAST YEAR?MONTHLY OR LESS (1 POINT) POINTS1 INTERPRETATIONNEGATIVE RECREATIONAL DRUG USE DRUG USE?NO PATIENT DENIES ABUSE OR MISSUSED OF ANY MEDICATION. PATIENT DENIES USE OF ANY ILLEGAL SUBSTANCE INCLUDING MARIJUANA OR COCAINE. CAFFEINE CAFFEINE USE?YES HOW OFTEN AND HOW MUCH? 1-2 CUP SEXUAL HX HAD SEX IN THE LAST 12 MONTHS (VAGINAL, ORAL, OR ANAL)?YES WITHMEN ONLY PREVENTION STRATEGIES DISCUSSED:CONDOMS USE PROTECTION?NO LMP:08/29/2016 HAVE YOU EVER HAD AN STD?NO HIV / HEP-C SCREENING HIV TEST OFFERED TO PATIENT:YES DATE OFFERED:07/03/2016 TEST ACCEPTED:NO HEP-C TEST OFFERED TO PATIENT:YES DATE OFFERED:07/03/2016 REASON:PATIENT DECLINED TEST ACCEPTED:NO REASON:PATIENT DECLINED [employer] [id number] NONE LANGUAGE LANGUAGES SPOKEN:BELARUSIAN EDUCATION LEVEL OF EDUCATION:NOT FINISHED COLLEGE LEARNING BARRIERS / SPECIAL NEEDS CHANGE FROM LAST VISIT?NO BARRIERS TO LEARNING?NO HEARING IMPAIRED?NO VISION IMPAIRED?YES COGNITIVELY IMPAIRED?NO :CORRECTIVE LENSES READINESS TO LEARN?YES LEARNING PREFERENCES?NO LEARNING CAPABILITIES PRESENT?YES EMOTIONAL BARRIERS?NO SPECIAL DEVICES?NO MANAGER OF INTERNATIONAL NEEDED?NO DOMESTIC VIOLENCE DO YOU FEEL SAFE IN YOUR ENVIRONMENT?YES 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 MARITAL STATUS: SINGLE. OTHERS AT HOME: CHILD, OTHER NON-RELATIVE. NEW PATIENT PAIN DIARY TODAY'S VISITNOTES 11/18/2019 PATIENT DESCRIBES PAIN :ACHING, SHOOTING FROM 0-10, WHAT LEVEL IS YOUR PAIN TODAY?4 PATIENT STATES HER PAIN RANGES FROM 2-8 PRECIPITATING FACTORS EVERYTHING, MOVEMENT ALLEVIATING FACTORS NOTHING MAKE IT BETTER, TEMPORARY RELIEF FROM A HEATING PAD, SOMETIMES THE MEDS HELP IMPACT ON FUNCTION NOT ABLE TO DO ALL ACTIVITIES SHE WOULD LIKE TO DO PAIN CLINIC PFS, CLERGY, PUBLIC HEALTH REFERRALS WAS THE PROVIDER NOTIFIED OF ANY PERTINENT INFO?YES N/A HAS THE PATIENT BEEN EDUCATED REGARDING HIS/HER PLAN OF CARE?YES HAS THE PATIENT BEEN EDUCATED REGARDING PAIN, THE RISK FOR PAIN, THE IMPORTANCE OF EFFECTIVE PAIN MANAGEMENT, AND THE PAIN ASSESSMENT PROCESS?YES ADVANCE DIRECTIVE ADVANCE DIRECTIVE DISCUSSED WITH PATIENT:YES HCP VIGNESH HERRON [phone] HOSPITALIZATION/MAJOR DIAGNOSTIC PROCEDURE RELATED TO SURGERY VITAL SIGNS WT 189.4 LBS, HT 67 IN, BMI 29.66 INDEX, BP 148/105 MM HG, REPEAT BP 146/98 R MANNUAL, HR 72 /MIN, RR 16 /MIN, TEMP 97.9 F, OXYGEN SAT % 100%, SAFE IN ENV? (Y/N) Y, NA INITIALS TL 0913, REVIEWED BY: EMELEVATED BP 146/89 MANNUAL RT ARM, PT STATES SHE IS IN QUITE A BIT OF PAIN TODAY-T.L. ASSESSMENTS INTERVERTEBRAL DISC DISORDERS WITH RADICULOPATHY, LUMBAR REGION - M51.16 (PRIMARY) INTERVERTEBRAL DISC DISORDER WITH RADICULOPATHY OF LUMBOSACRAL REGION - M51.17 TREATMENT INTERVERTEBRAL DISC DISORDERS WITH RADICULOPATHY, LUMBAR REGION [facility] FLUORO GUIDE SPINE INJECTION (PAIN)[id number] PROCEDURES PN LUMBAR TRANSFORAMINAL BLOCKS PRE PROCEDURE DIAGNOSIS LUMBAR DISC DISORDER WITH RADICULOPATHY, LUMBOSACRAL DISC DISORDER WITH RADICULOPATHY POST PROCEDURE DIAGNOSIS LUMBAR DISC DISORDER WITH RADICULOPATHY, LUMBOSACRAL DISC DISORDER WITH RADICULOPATHY PROCEDURE LEFT L4, LEFT L5 AND LEFT S1 TRANSFORAMINAL EPIDURAL STEROID INJECTION UNDER FLUOROSCOPIC GUIDANCE SURGEON DR CATHY QUIROGA COMMUNITY SUPPORT ASSOCIATE NONE ANESTHESIA LOCAL WITH IV SEDATION PRE PROCEDURE NOTE THE PATIENT WITH HISTORY OF CHRONIC LOW BACK PAIN. I EVALUATED THE PATIENT AND REVIEWED THE CHART. I WENT OVER THE RISKS, ALTERNATIVES, AND BENEFITS ASSOCIATED WITH THIS PROCEDURE. I DISCUSSED THAT THE USE OF STEROIDS MAY CONTRIBUTE TO IMMUNOSUPPRESSION OF THE PATIENT'S BODY AGAINST INFECTIONS SUCH THE SILVER VIRUS, COVID-19. THE PATIENT IS AWARE OF THE POTENTIAL COMPLICATIONS ASSOCIATED WITH AN INFECTION OF THIS VIRUS INCLUDING . I DISCUSSED WITH THE PATIENT THAT I WOULD LIKE TO DO 3 LEVELS, THE LEFT SIDE OF L4, THE LEFT SIDE OF L5 AND THE LEFT SIDE OF S1, BASED ON THE MRI AND HER CLINICAL FINDINGS. THE PATIENT WOULD LIKE TO PROCEED AND GIVE CONSENT TO PERFORMED THE PROCEDURE. THE PATIENT WOULD LIKE TO MOVE FORWARD WITH IV SEDATION DUE TO DISCOMFORT, PAIN AND ANXIETY ASSOCIATED WITH THE PROCEDURE. THE PATIENT DENIES UNEXPLAINABLE WEIGHT LOSS, FEVER, CHILLS, OR CHANGES IN URINARY OR BOWEL CONTROL. THE PATIENT IS COVID-19 NEGATIVE DESCRIPTION OF PROCEDURE THE PATIENT WAS BROUGHT TO THE PROCEDURE ROOM AND PLACED IN THE PRONE POSITION. THE LUMBOSACRAL AREA WAS CLEANED WITH BETADINE SOLUTION AND DRAPED ASEPTICALLY. THE PROCEDURE WAS DONE UNDER STERILE CONDITIONS. PATIENT RECEIVED VERSED 3 MG AND FENTANYL 200 MCG IV IN DIVIDED DOSES. I CHECKED LATERALITY AND THE LEVEL WHERE THE PROCEDURE WAS GOING TO BE PERFORMED WITH THE PATIENT AND THE SUPPORTING STAFF AT THE MOMENT OF THE TIME OUT IN THE PROCEDURE ROOM. UNDER FLUOROSCOPIC GUIDANCE, TARGETS WERE SELECTED AT THE LEFT TRANSFORAMINAL OPENINGS OF L4, L5 AND S1. TARGET POINT WAS SELECTED AFTER LATERAL ROTATION AND TILT OF THE MAGNIFIER OF THE C-ARM. LIDOCAINE 0.5% WAS USED TO NUMB THE SKIN AND THE SUBCUTANEOUS TISSUE BELOW IT. AN EPIMED INTRODUCER 18-GAUGE WAS ADVANCED UNTIL WE WENT CLOSE TO THE SELECTED TRANSFORAMINAL OPENINGS. AFTER PROPER POSITION OF THE NEEDLES WAS ACHIEVED, A 22-GAUGE EPIMED NEEDLE WAS PLACED INSIDE OF THE INTRODUCER AND ADVANCED TO THE TRANSFORAMINAL OPENING OF THE SELECTED SITES. WHEN PROPER POSITION OF THE NEEDLE WAS ACHIEVED, ISOVUE M DYE 30%, 0.25 ML, WAS INJECTED SHOWING ADEQUATE SPREAD OF THE DYE. THIS WAS DONE UNDER DIGITAL SUBTRACTION AND ANGIOGRAPHY. THERE WAS NO VASCULAR UPDATE. THEN, A SOLUTION OF 2 ML OF BUPIVACAINE 0.25% AND DEXAMETHASONE 10 MG WAS INJECTED AT EACH SITE. THERE WAS NO EVIDENCE OF BLOOD, PARESTHESIA OR CEREBROSPINAL FLUID DURING THE PROCEDURE. THE PATIENT WAS SENT TO THE RECOVERY ROOM. THE PATIENT WAS MOVING THE EXTREMITIES AND DOING WELL. THERE WAS NO COMPLICATION DURING THE PROCEDURE. FLUOROSCOPY TIME WAS 2 MINUTES AND 17 SECONDS. TOTAL GIWG-MH-DZOS TIME WAS 40 MINUTES POST PROCEDURE NOTE THE PATIENT EXPRESSED CONCERNS ABOUT HOW LONG IT TAKES TO GET INJECTIONS PERFORMED. I TOLD TO THE PATIENT TO EXPRESS THIS TO THE NURSE PRACTITIONER AND WE CAN ALWAYS ACCOMMODATE HER. ALSO, WE CAN CONSIDER FOR SHORTS PERIOD OF TIME, CHANGE THE MEDICATION REGIMEN. THE PROCEDURE DONE WAS DISCUSSED WITH THE PATIENT. THE PATIENT WILL BE SEEN IN A FOLLOW UP IN THE NEXT FEW WEEKS. I AM LOOKING FOR LONG LASTING PAIN RELIEF FOR THE PATIENT WITH THIS INTERVENTION. INSTRUCTIONS WERE GIVEN, QUESTIONS WERE ANSWERED, AND THE PATIENT EXPRESSED UNDERSTANDING AND AGREES WITH THE PLAN. THE PATIENT IS AWARE TO STAY HOME FOR THE NEXT WEEK, IF POSSIBLE, DUE TO COVID-19. I, KRISTA SANTAMARIA, DOCUMENTED THE ABOVE INFORMATION ACTING A SCRIBE FOR DR. QUIROGA. I HAVE REVIEWED THE ABOVE DOCUMENT, WRITTEN BY KRISTA SANTAMARIA, MACHINIST CLASS B, AND I VERIFY THAT IT IS ACCURATE PROCEDURE CODES 24499 INJ FORAMEN EPIDURAL L/S, [place]: [place] [address] INJ FORAMEN EPIDURAL ADD-[place], [place]: [place] [address] INJ FORAMEN EPIDURAL [place], [place] [address] MOD SED SAME PHYS/QHP 5/>YRS 86412 [place] [address] MOD SED SAME PHYS/QHP EA DISPOSITION & COMMUNICATION FOLLOW UP F/UP WITH MILL FEEDER (REASON: POST LEFT TRANSFORAMINAL L4,L5,S1 W. IV SED) ELECTRONICALLY SIGNED BY CATHY QUIROGA MD, MD ON 12/07/2019 AT 10:13 AM EDT DISCLAIMER : THIS IS A VISIT SUMMARY EXTRACTED FROM THE [employer] CHART. IT IS NOT A COPY OF THE [employer] PROGRESS NOTE. DOROTHEA
== END ==
LOC: M PAIN 10:15
PROVIDERS: ATTEND Anesthesiology
DX: M51.16 Intervertebral disc disorders with radiculopathy, lumbar region (principal); M51.17 Intervertebral disc disorders with radiculopathy, lumbosacral region
CPT/HCPCS: 64483; 64484; 99152; 99153; J1100; J2250; J3010; Q9967

== ENCOUNTER → 2019-12-21 | Outpatient (CLI) | payer OTHER ==
[~2019-12-21] MED LIST changes: -BUPIVACAINE HCL 0.25% 30ML VIAL As Ordered ONE; -ISOVUE-M 300 61% 15ML VIAL As Ordered ONE; -LIDOCAINE 1% SDV 30ML VIAL As Ordered ONE; -MIDAZOLAM INJ 2MG/2ML VIAL (J2250 PER 1MG) As Ordered ONE; -dexameTHASONE 10MG/1ML VIAL PRES.FREE (J1100 PER 1MG) As Ordered ONE; -fentaNYL 100 MCG/2 ML INJECTION (J3010) As Ordered ONE
--- NOTE | 2019-12-23 01:58 | ECWPNPC ---
PATIENT NAME: MIKE LAI : 1980 GENDER: FEMALE VISIT DATE: 12/21/2019 DISCHARGE DATE: 12/21/19 1531 VISIT LOCKED DATE TIME: PHYSICIAN: SABIHA BERNARDO RESOURCE: SABIHA BERNARDO REASON FOR APPOINTMENT 1. POST LEFT TRANSFORAMINAL L4,L5,S1 W. IV [phone] HISTORY OF PRESENT ILLNESS GENERAL: PATIENT IS AGREEABLE TO TELEPHONE VISIT TODAY. THIS IS A POST PROCEDURE FOLLOW-UP. HAD LEFT L4-5, L5-S1 TRANSFORAMINAL INJECTION ON 12/04/2019. REPORTING RESOLUTION OF LEFT LEG AND FOOT PAIN. REPORTS IMPROVED ACTIVITY TOLERANCE. CONTINUES WITH CHRONIC BILATERAL KNEE PAIN. FINDS CURRENT CHRONIC PAIN MEDICINE HELPFUL AT REDUCING PAIN. DENIES ADVERSE SIDE EFFECTS. -. FALL RISK SCREENING: SCREENING :NO FALLS REPORTED IN THE LAST YEAR PAIN SCREENING: PATIENT HAS A COMPLAINT OF ACUTE OR CHRONIC PAIN :YES LOCATION OF PAIN:KNEES INTENSITY OF PAIN (SCALE OF 1 TO 10):4 WHAT DOES YOUR PAIN FEEL LIKE:ACHING, CONTINOUS DURATION:CONSTANT PAIN IS INCREASED BY:ACTIVITIES PAIN IS DECREASED BY: NOTHING HELPS RIGHT NOW NURSING NOTE: -. PAIN CENTER INTAKE QUESTIONS: DO YOU HAVE A HISTORY OF MRSA? :NO DO YOU TAKE A BLOOD THINNERS? :NO DO YOU HAVE ANY BLEEDING DISORDERS? :NO ANY NEW NUMBNESS OR WEAKNESS IN YOUR LEGS OR ARMS? :YES RIGHT LEG FEELS WEAKER ANY PACEMAKER,DEFIBRILLATOR, OR DORSAL COLUMN STIMULATOR? :NO DO YOU HAVE ANY RASHES OR OPEN SORES? :NO ARE YOU ALLERGIC TO IV DYE? :NO ARE YOU DIABETIC? :NO ANY NEW PROBLEMS WITH YOUR MEDICATIONS? :NO HAVE YOU RECEIVED A VACCINE IN THE PAST 30 DAYS? :NO DO YOU PLAN TO RECEIVE A VACCINE IN THE NEXT 21 DAYS? :NO DO YOU NEED ANY PRESCRIPTION? :NO DO YOU TAKE ANY IMMUNOSUPPRESSIVE MEDICATIONS? :NO ANY HISTORY OF SEIZURES? :NO ANY HISTORY OF CARDIAC ISSUES OR EVENTS? :NO DO YOU HAVE SLEEP APNEA? NO. ANY RECENT HEAD INJURY? :NO DO YOU HAVE ANY NEW INFECTIONS? :NO IS THERE A CHANCE YOU COULD BE ? :NO ARE YOU BREAST FEEDING? :NO CURRENT MEDICATIONS TAKING EXCEDRIN MIGRAINE 250-250-65 MG TABLET 2 TABLETS NEEDED ORALLY EVERY 6 HRS TAKING FLUTICASONE PROPIONATE 50 MCG/ACT SUSPENSION 1 SPRAY IN EACH NOSTRIL NASALLY ONCE A DAY TAKING HYDROCODONE-ACETAMINOPHEN 7.5-325 MG TABLET 1 TABLET NEEDED ORALLY Q8H PRN MDD3 NOT-TAKING NORCO 7.5-325 MG TABLET 1 TABLET NEEDED ORALLY Q8H PRN MDD3, NOTES: DUPLICATE MEDICATION LIST REVIEWED AND RECONCILED WITH THE PATIENT PAST MEDICAL HISTORY TENDONITIS- RAUL KNEE MIGRAINES URINARY STRESS INCONTINENCE ANXIETY, ?PTSD HISTORY OF TOBACCO USE DYSPEPSIA GRANADOS BILATERAL CARPAL TUNNEL SYNDROME CHRONIC BACK PAIN, 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 2 SON(S) - HEALTHY. SOCIAL HISTORY GENERAL: TOBACCO USE ARE YOU A:FORMER SMOKER HOW LONG HAS IT BEEN SINCE YOU LAST SMOKED?1-5 YEARS SMOKING CESSATION INFORMATION GIVEN05/10/2017 LATEX QUESTIONNAIRE LATEX ALLERGY : HAVE YOU EVER DEVELOPED ANY TYPE OF REACTION AFTER HANDLING LATEX PRODUCTS SUCH RUBBER GLOVES, CONDOMS, DIAPHRAGMS, BALLOONS, SOCKS, OR UNDERWEAR?NO LATEX ALLERGY : HAVE YOU EVER DEVELOPED ANY TYPE OF REACTION DURING OR AFTER DENTAL APPOINTMENT, VAGINAL/RECTAL EXAMINATION, SURGICAL PROCEDURE, OR ANY OTHER EXPOSURE?NO LATEX RISK : HAVE YOU EVER HAD ANY DIFFICULTY BREATHING OR HIVES AFTER EATING OR HANDLING ANY FRUITS, OR VEGETABLES; SUCH KIWI, BANANAS, STONE FRUITS, OR CHESTNUTSNO LATEX RISK : DO YOU HAVE A PREVIOUS PERSONAL HISTORY OF MORE THAN NINE SURGERIES, SPINA BIFIDA, OR REPEATED CATHERIZATIONS? NO LATEX RISK : ARE YOU FREQUENTLY EXPOSED TO LATEX PRODUCTS IN YOUR OCCUPATION?NO DATE ASKED : 12/21/2019 BMI CARE GOAL FOLLOW-UP ABOVE NORMAL BMI FOLLOW-UPDIETARY NEEDS EDUCATION ALCOHOL SCREENING DID YOU HAVE A DRINK CONTAINING ALCOHOL IN THE PAST YEAR?YES HOW OFTEN DID YOU HAVE SIX OR MORE DRINKS ON ONE OCCASION IN THE PAST YEAR?NEVER (0 POINTS) HOW MANY DRINKS DID YOU HAVE ON A TYPICAL DAY WHEN YOU WERE DRINKING IN THE PAST YEAR?1 OR 2 (0 POINTS) HOW OFTEN DID YOU HAVE A DRINK CONTAINING ALCOHOL IN THE PAST YEAR?MONTHLY OR LESS (1 POINT) POINTS1 INTERPRETATIONNEGATIVE RECREATIONAL DRUG USE DRUG USE?NO PATIENT DENIES ABUSE OR MISSUSED OF ANY MEDICATION. PATIENT DENIES USE OF ANY ILLEGAL SUBSTANCE INCLUDING MARIJUANA OR COCAINE. CAFFEINE CAFFEINE USE?YES HOW OFTEN AND HOW MUCH? 1-2 CUP SEXUAL HX HAD SEX IN THE LAST 12 MONTHS (VAGINAL, ORAL, OR ANAL)?YES WITHMEN ONLY PREVENTION STRATEGIES DISCUSSED:CONDOMS USE PROTECTION?NO LMP:08/29/2016 HAVE YOU EVER HAD AN STD?NO HIV / HEP-C SCREENING HIV TEST OFFERED TO PATIENT:YES DATE OFFERED:07/03/2016 TEST ACCEPTED:NO HEP-C TEST OFFERED TO PATIENT:YES DATE OFFERED:07/03/2016 REASON:PATIENT DECLINED TEST ACCEPTED:NO REASON:PATIENT DECLINED PENTECOSTAL [id number] NONE LANGUAGE LANGUAGES SPOKEN:MALAGASY EDUCATION LEVEL OF EDUCATION:NOT FINISHED COLLEGE LEARNING BARRIERS / SPECIAL NEEDS CHANGE FROM LAST VISIT?NO BARRIERS TO LEARNING?NO HEARING IMPAIRED?NO VISION IMPAIRED?YES COGNITIVELY IMPAIRED?NO :CORRECTIVE LENSES READINESS TO LEARN?YES LEARNING PREFERENCES?NO LEARNING CAPABILITIES PRESENT?YES EMOTIONAL BARRIERS?NO SPECIAL DEVICES?NO OUTREACH PROFESSIONAL NEEDED?NO DOMESTIC VIOLENCE DO YOU FEEL SAFE IN YOUR ENVIRONMENT?YES 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 MARITAL STATUS: SINGLE. OTHERS AT HOME: CHILD, OTHER NON-RELATIVE. PAIN CLINIC PFS, CLERGY, PUBLIC HEALTH REFERRALS WAS THE PROVIDER NOTIFIED OF ANY PERTINENT INFO?YES N/A HAS THE PATIENT BEEN EDUCATED REGARDING HIS/HER PLAN OF CARE?YES HAS THE PATIENT BEEN EDUCATED REGARDING PAIN, THE RISK FOR PAIN, THE IMPORTANCE OF EFFECTIVE PAIN MANAGEMENT, AND THE PAIN ASSESSMENT PROCESS?YES ADVANCE DIRECTIVE ADVANCE DIRECTIVE DISCUSSED WITH PATIENT:YES HCP VIGNESH HERRON [phone] HOSPITALIZATION/MAJOR DIAGNOSTIC PROCEDURE RELATED TO SURGERY REVIEW OF SYSTEMS CONSTITUTIONAL: ANY RECENT FEVER OR ILLNESS NO . CHILLS NO . GASTROENTEROLOGY: BOWEL INCONTINENCE NO . ANY NEW CHANGE IN BOWEL CONTROL? NO . ABDOMINAL PAIN NO . CONSTIPATION NO . GENITOURINARY: ANY NEW CHANGE IN BLADDER CONTROL? NO . IS THERE A CHANCE YOU COULD BE ? NO . URINARY INCONTINENCE NO . CARDIOLOGY: CHEST PRESSURE NO . CHEST PAIN NO . RESPIRATORY: COUGH NO . SHORTNESS OF BREATH NO . ASSESSMENTS INTERVERTEBRAL DISC DISORDER WITH RADICULOPATHY OF LUMBOSACRAL REGION - M51.17 PAIN IN RIGHT KNEE - M25.561 PAIN IN LEFT KNEE - M25.562 OTHER CHRONIC PAIN - G89.29 TREATMENT OTHERS NOTES: 12/21/2019 0904 PATIENT CONSENTS TO TELEPHONE VISIT. PRE VIIST PHONE CALL COMPLETED. VITAL SIGNS NOT OBTAINED DUE TO VIRTUAL VISIT. NLJ ADVISED TO CONTINUE WITH HOME EXERCISE AND STRETCHING. FOLLOW-UP IN CLINIC IN 3 MONTHS. ENCOURAGED TO CALL SOONER SHOULD HER CONDITION CHANGE. TOTAL TIME SPENT DURING TELEPHONE VISIT WAS APPROXIMATELY 12 MINUTES. DISPOSITION & COMMUNICATION FOLLOW UP 3 MONTHS IN CLINIC VISIT/MED MANAGEMENT/TOXICOLOGY (REASON: LOW BACK PAIN, BILATERAL KNEE PAIN) ELECTRONICALLY SIGNED BY TOBIAS KABA ON 12/22/2019 AT 08:15 AM EDT DISCLAIMER : THIS IS A VISIT SUMMARY EXTRACTED FROM THE [employer] [facility] CHART. IT IS NOT A COPY OF THE [employer] [facility] PROGRESS NOTE. DOROTHEA
== END ==
LOC: M PAIN 09:00
PROVIDERS: ATTEND Nurse Practitioner Family
DX: M51.17 Intervertebral disc disorders with radiculopathy, lumbosacral region (principal); M25.561 Pain in right knee; M25.562 Pain in left knee; G89.29 Other chronic pain

== ENCOUNTER → 2020-02-23 | Outpatient (POV) | payer OTHER | LOC: M PAIN 09:00 | PROVIDERS: ATTEND Anesthesiology | DX: M51.16 Intervertebral disc disorders with radiculopathy, lumbar region (principal) ==

== ENCOUNTER → 2020-02-24 | Outpatient (POV) | payer OTHER ==
--- NOTE | 2020-03-29 10:44 | REP ---
PARTIAL LUMBAR SPINE SERIES: 212 IMAGES HISTORY: Injection procedure for pain. 1 minute and 59 seconds of fluoroscopy time is reported. FINDINGS: A sequence of 212 last image hold fluoroscopically obtained spot radiographs of the lumbar spine document various needle positions and contrast injections associated with injection procedure. DOROTHEA
== END ==
LOC: M PAIN 08:00
PROVIDERS: ATTEND Anesthesiology
DX: M51.16 Intervertebral disc disorders with radiculopathy, lumbar region (principal)

== ENCOUNTER → 2020-04-13 | Outpatient (CLI) | payer OTHER ==
--- NOTE | 2020-04-18 16:37 | ECWPNPC ---
PATIENT NAME: MIKE LAI : 1980 GENDER: FEMALE VISIT DATE: 04/13/2020 DISCHARGE DATE: 04/13/20 1120 VISIT LOCKED DATE TIME: PHYSICIAN: SABIHA BERNARDO PHYSICIAN PAGER NO: ACTIVE RESOURCE: SABIHA BERNARDO REASON FOR APPOINTMENT 1. BACK/LEG HISTORY OF PRESENT ILLNESS PAIN CENTER INTAKE QUESTIONS: HERE FOR POST PROCEDURE F/U.HAD LEFT LUMBAR TRANSFORAMINAL STERIOD INJECTION ON 02/24/2020.HAD MARKED REDUCTION IN PAIN UP UNTIL 2 DAYS AGO.PAIN HAS BEEN VERY INTENSE ACROSS LOW BACK AND RADIATION INTO BILAT. LEG L>R.RATING PAIN VAS 8/10. GENERAL: -. FALL RISK SCREENING: SCREENING :NO FALLS REPORTED IN THE LAST YEAR PAIN SCREENING: PATIENT HAS A COMPLAINT OF ACUTE OR CHRONIC PAIN :YES LOCATION OF PAIN:LEFT HIP, LOW BACK INTENSITY OF PAIN (SCALE OF 1 TO 10):7 WHAT DOES YOUR PAIN FEEL LIKE:ACHING, SHOOTING NURSING NOTE: -. CURRENT MEDICATIONS TAKING EXCEDRIN MIGRAINE 250-250-65 MG TABLET 2 TABLETS NEEDED ORALLY EVERY 6 HRS TAKING HYDROCODONE-ACETAMINOPHEN 7.5-325 MG TABLET 1 TABLET NEEDED ORALLY Q8H PRN MDD4 TAKING AZELASTINE HCL 0.1 % SOLUTION 1 PUFF IN EACH NOSTRIL NASALLY TWICE A DAY NOT-TAKING FLUTICASONE PROPIONATE 50 MCG/ACT SUSPENSION 1 SPRAY IN EACH NOSTRIL NASALLY ONCE A DAY NOT-TAKING NORCO 7.5-325 MG TABLET 1 TABLET NEEDED ORALLY Q8H PRN MDD3, NOTES: DUPLICATE MEDICATION LIST REVIEWED AND RECONCILED WITH THE PATIENT PAST MEDICAL HISTORY TENDONITIS- RAUL KNEE MIGRAINES URINARY STRESS INCONTINENCE ANXIETY, ?PTSD HISTORY OF TOBACCO USE DYSPEPSIA GRANADOS BILATERAL CARPAL TUNNEL SYNDROME CHRONIC BACK PAIN, 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 2 SON(S) - HEALTHY. SOCIAL HISTORY GENERAL: TOBACCO USE ARE YOU A:FORMER SMOKER HOW LONG HAS IT BEEN SINCE YOU LAST SMOKED?1-5 YEARS SMOKING CESSATION INFORMATION GIVEN05/10/2017 LATEX QUESTIONNAIRE LATEX ALLERGY : HAVE YOU EVER DEVELOPED ANY TYPE OF REACTION AFTER HANDLING LATEX PRODUCTS SUCH RUBBER GLOVES, CONDOMS, DIAPHRAGMS, BALLOONS, SOCKS, OR UNDERWEAR?NO LATEX ALLERGY : HAVE YOU EVER DEVELOPED ANY TYPE OF REACTION DURING OR AFTER DENTAL APPOINTMENT, VAGINAL/RECTAL EXAMINATION, SURGICAL PROCEDURE, OR ANY OTHER EXPOSURE?NO DATE ASKED : 12/21/2019 LATEX RISK : HAVE YOU EVER HAD ANY DIFFICULTY BREATHING OR HIVES AFTER EATING OR HANDLING ANY FRUITS, OR VEGETABLES; SUCH KIWI, BANANAS, STONE FRUITS, OR CHESTNUTSNO LATEX RISK : DO YOU HAVE A PREVIOUS PERSONAL HISTORY OF MORE THAN NINE SURGERIES, SPINA BIFIDA, OR REPEATED CATHERIZATIONS? NO LATEX RISK : ARE YOU FREQUENTLY EXPOSED TO LATEX PRODUCTS IN YOUR OCCUPATION?NO BMI CARE GOAL FOLLOW-UP ABOVE NORMAL BMI FOLLOW-UPDIETARY NEEDS EDUCATION ALCOHOL SCREENING DID YOU HAVE A DRINK CONTAINING ALCOHOL IN THE PAST YEAR?YES HOW OFTEN DID YOU HAVE SIX OR MORE DRINKS ON ONE OCCASION IN THE PAST YEAR?NEVER (0 POINTS) HOW MANY DRINKS DID YOU HAVE ON A TYPICAL DAY WHEN YOU WERE DRINKING IN THE PAST YEAR?1 OR 2 (0 POINTS) HOW OFTEN DID YOU HAVE A DRINK CONTAINING ALCOHOL IN THE PAST YEAR?MONTHLY OR LESS (1 POINT) POINTS1 INTERPRETATIONNEGATIVE RECREATIONAL DRUG USE DRUG USE?NO PATIENT DENIES ABUSE OR MISSUSED OF ANY MEDICATION. PATIENT DENIES USE OF ANY ILLEGAL SUBSTANCE INCLUDING MARIJUANA OR COCAINE. CAFFEINE CAFFEINE USE?YES HOW OFTEN AND HOW MUCH? 1-2 CUP SEXUAL HX HAD SEX IN THE LAST 12 MONTHS (VAGINAL, ORAL, OR ANAL)?YES WITHMEN ONLY PREVENTION STRATEGIES DISCUSSED:CONDOMS USE PROTECTION?NO LMP:08/29/2016 HAVE YOU EVER HAD AN STD?NO HIV / HEP-C SCREENING HIV TEST OFFERED TO PATIENT:YES DATE OFFERED:07/03/2016 TEST ACCEPTED:NO HEP-C TEST OFFERED TO PATIENT:YES DATE OFFERED:07/03/2016 REASON:PATIENT DECLINED TEST ACCEPTED:NO REASON:PATIENT DECLINED CONFUCIANIST [id number] NONE LANGUAGE LANGUAGES SPOKEN:SAUDI ARABIAN EDUCATION LEVEL OF EDUCATION:NOT FINISHED COLLEGE LEARNING BARRIERS / SPECIAL NEEDS CHANGE FROM LAST VISIT?NO BARRIERS TO LEARNING?NO HEARING IMPAIRED?NO VISION IMPAIRED?YES COGNITIVELY IMPAIRED?NO :CORRECTIVE LENSES READINESS TO LEARN?YES LEARNING PREFERENCES?NO LEARNING CAPABILITIES PRESENT?YES EMOTIONAL BARRIERS?NO SPECIAL DEVICES?NO PERIODICALS CLERK NEEDED?NO DOMESTIC VIOLENCE DO YOU FEEL SAFE IN YOUR ENVIRONMENT?YES 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 MARITAL STATUS: SINGLE. OTHERS AT HOME: CHILD, OTHER NON-RELATIVE. PAIN CLINIC PFS, CLERGY, PUBLIC HEALTH REFERRALS WAS THE PROVIDER NOTIFIED OF ANY PERTINENT INFO?YES N/A HAS THE PATIENT BEEN EDUCATED REGARDING HIS/HER PLAN OF CARE?YES HAS THE PATIENT BEEN EDUCATED REGARDING PAIN, THE RISK FOR PAIN, THE IMPORTANCE OF EFFECTIVE PAIN MANAGEMENT, AND THE PAIN ASSESSMENT PROCESS?YES ADVANCE DIRECTIVE ADVANCE DIRECTIVE DISCUSSED WITH PATIENT:YES HCP VIGNESH HERRON [phone] HOSPITALIZATION/MAJOR DIAGNOSTIC PROCEDURE RELATED TO SURGERY REVIEW OF SYSTEMS CONSTITUTIONAL: ANY RECENT FEVER NO . CHILLS NO . WEIGHT CHANGE OF UNKNOWN REASONS NO . GASTROENTEROLOGY: NEW UNEXPLAINABLE CHANGES IN BOWEL CONTROL NO . CONSTIPATION NO . GENITOURINARY: ANY NEW CHANGE IN BLADDER CONTROL? NO . NEUROLOGY: NEW ONSET DIZZINESS OR NEUROLOGICAL CHANGES NOT MENTIONED NO . NEW NUMBNESS OR PAIN PATTERNS NOT MENTIONED AND PERTINENT TO TODAY'S VISIT NO . CARDIOLOGY: NEW CHEST PRESSURE NO . NEW CHEST PAIN NO . RESPIRATORY: UNEXPLAINABLE COUGH NO . NEW SHORTNESS OF BREATH NO . VITAL SIGNS WT 200.0 LBS, HT 67 IN, BMI 31.32 INDEX, BP 143/82 MM HG, HR 83 /MIN, RR 18 /MIN, TEMP 98.1 F, OXYGEN SAT % 99%, NA INITIALS AW 1026. EXAMINATION GENERAL EXAMINATION: GENERAL AWAKE,ALERT ,PLEASANT . PSYCH AFFECT NORMAL . LUNGS: LUNG [place] ARE CLEAR TO AUSCULTATION BILATERALLY. GOOD MOVEMENT OF AIR . HEART: S1, S2 IN A REGULAR RATE AND RHYTHM. NO SIGNIFICANT MURMURS, RUBS OR GALLOPS NOTED . MUSCULOSKELETAL:MILD WEAKNESS OVER BILAT. LOWER EXTREMITIES. LUMBAR: PALPATION: + FOR PAIN OVER L/S SPINE. + FOR PAIN OVER L/S PARASPINALS POSITIVE SLE AT 45 DEGREES LEFT. NEUROLOGIC EXAM: NORMAL SENSATION LIGHT TOUCH BILAT. LOWER EXTREMITIES. DIAGNOSTIC TESTS REVIEWED MRI L/S SPINE-08/20/18. ASSESSMENTS INTERVERTEBRAL DISC DISORDER WITH RADICULOPATHY OF LUMBOSACRAL REGION - M51.17 (PRIMARY) TREATMENT INTERVERTEBRAL DISC DISORDER WITH RADICULOPATHY OF LUMBOSACRAL REGION REFILL HYDROCODONE-ACETAMINOPHEN TABLET, 7.5-325 MG, 1 TABLET NEEDED, ORALLY, Q8H PRN MDD4, 30 DAYS, 120, REFILLS 0 OTHERS NOTES: LEFT L4/5-L5/S1 TRANSFORAMINAL STEROID INJECTION W IV SEDATION. PROCEDURE CODES [id number] ESTABILISHED PATIENT [facility] CHARGE DISPOSITION & COMMUNICATION FOLLOW UP POST AND DR Camilo CARTER SED VISIT (REASON: LEFT L4/5-L5/S1 TRANSFORAMINAL STEROID INJECTION) ELECTRONICALLY SIGNED BY TOBIAS KABA ON 04/18/2020 AT 03:46 PM EDT DISCLAIMER : THIS IS A VISIT SUMMARY EXTRACTED FROM THE [employer] CHART. IT IS NOT A COPY OF THE [employer] PROGRESS NOTE. DOROTHEA
== END ==
LOC: M PAIN 10:15
PROVIDERS: ATTEND Nurse Practitioner Family
DX: M51.17 Intervertebral disc disorders with radiculopathy, lumbosacral region (principal); G43.909 Migraine, unspecified, not intractable, without status migrainosus; F41.9 Anxiety disorder, unspecified; Z87.891 Personal history of nicotine dependence; Z91.048 Other nonmedicinal substance allergy status; Z91.09 Other allergy status, other than to drugs and biological substances

== ENCOUNTER → 2020-04-23 | Outpatient (CLI) | payer OTHER | LOC: M LABSMTC 08:07 | PROVIDERS: ATTEND Anesthesiology | DX: Z20.828 Contact with and (suspected) exposure to other viral communicable diseases (principal) | CPT/HCPCS: C9803; U0003 ==

== ENCOUNTER → 2020-04-25 | Outpatient (CLI) | payer OTHER ==
--- NOTE | 2020-05-05 00:45 | ECWPNPC ---
PATIENT NAME: MIKE LAI : 1980 GENDER: FEMALE VISIT DATE: 04/25/2020 DISCHARGE DATE: 04/25/20 161 VISIT LOCKED DATE TIME: PHYSICIAN: CATHY QUIROGA MD PHYSICIAN PAGER NO: ACTIVE RESOURCE: CATHY QUIROGA MD REASON FOR APPOINTMENT 1. PRE-SEDATE ....LEFT L4/5-L5/S1 TRANSFORAMINAL STEROID INJECTION W/ IV SEDATION HISTORY OF PRESENT ILLNESS GENERAL: 39-YEAR-OLD FEMALE PATIENT WITH A HISTORY OF CHRONIC LOW BACK AND MAINLY LEFT LEG PAIN. THE PATIENT DESCRIBES THE PAIN SEVERE, ACHING AND STABBING WITH A PAIN SCORE RANGING FROM 7-10/10 DEPENDING ON PHYSICAL ACTIVITY IN THE BACK WITH RADIATION TO MAINLY THE LEFT LEG. THIS IS AFFECTING HER ACTIVITIES OF DAILY LIVING SUCH CLEANING HER HOUSE. WE USUALLY PERFORM TRANSFORAMINAL EPIDURAL STEROID INJECTIONS AND IT SEEMS TO WORK FOR THE PATIENT. PATIENT DENIES UNEXPLAINABLE WEIGHT LOSS, FEVER, CHILLS, NEW CHANGES ON HER URINARY OR BOWEL CONTROL. PAIN CENTER INTAKE QUESTIONS: DO YOU HAVE A HISTORY OF MRSA? :NO DO YOU TAKE A BLOOD THINNERS? :NO DO YOU HAVE ANY BLEEDING DISORDERS? :NO ANY NEW NUMBNESS OR WEAKNESS IN YOUR LEGS OR ARMS? :NO ANY PACEMAKER,DEFIBRILLATOR, OR DORSAL COLUMN STIMULATOR? :NO DO YOU HAVE ANY RASHES OR OPEN SORES? :NO ARE YOU ALLERGIC TO IV DYE? :NO ARE YOU DIABETIC? :NO ANY NEW PROBLEMS WITH YOUR MEDICATIONS? :NO HAVE YOU RECEIVED A VACCINE IN THE PAST 30 DAYS? :NO DO YOU PLAN TO RECEIVE A VACCINE IN THE NEXT 21 DAYS? :NO DO YOU NEED ANY PRESCRIPTION? :NO DO YOU TAKE ANY IMMUNOSUPPRESSIVE MEDICATIONS? :NO IS THERE A CHANCE YOU COULD BE ? :NO ARE YOU BREAST FEEDING? :NO FALL RISK SCREENING: SCREENING :NO FALLS REPORTED IN THE LAST YEAR PAIN SCREENING: PATIENT HAS A COMPLAINT OF ACUTE OR CHRONIC PAIN :YES LOCATION OF PAIN:LOW BACK INTENSITY OF PAIN (SCALE OF 1 TO 10):7 WHAT DOES YOUR PAIN FEEL LIKE:BURNING, ACHING, SHARP, CONTINOUS NURSING NOTE: -. CURRENT MEDICATIONS TAKING PHENTERMINE HCL 37.5 MG CAPSULE 1 CAPSULE ORALLY ONCE A DAY TAKING EXCEDRIN MIGRAINE 250-250-65 MG TABLET 2 TABLETS NEEDED ORALLY EVERY 6 HRS TAKING AZELASTINE HCL 0.1 % SOLUTION 1 PUFF IN EACH NOSTRIL NASALLY TWICE A DAY TAKING HYDROCODONE-ACETAMINOPHEN 7.5-325 MG TABLET 1 TABLET NEEDED ORALLY Q8H PRN MDD4 NOT-TAKING FLUTICASONE PROPIONATE 50 MCG/ACT SUSPENSION 1 SPRAY IN EACH NOSTRIL NASALLY ONCE A DAY NOT-TAKING NORCO 7.5-325 MG TABLET 1 TABLET NEEDED ORALLY Q8H PRN MDD3, NOTES: DUPLICATE MEDICATION LIST REVIEWED AND RECONCILED WITH THE PATIENT PAST MEDICAL HISTORY TENDONITIS- RAUL KNEE MIGRAINES URINARY STRESS INCONTINENCE ANXIETY, ?PTSD HISTORY OF TOBACCO USE DYSPEPSIA GRANADOS BILATERAL CARPAL TUNNEL SYNDROME CHRONIC BACK PAIN, 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 VITAL SIGNS WT 195.8 LBS, HT 67 IN, BMI 30.66 INDEX, BP 130/70 MM HG, HR 82 /MIN, RR 18 /MIN, TEMP 97.9 F, OXYGEN SAT % 98%, NA INITIALS AW 1518. EXAMINATION GENERAL EXAMINATION: THE PATIENT IS ALERT, ORIENTED TIMES THREE AND COOPERATIVE. HEART SHOWS REGULAR RHYTHM, NO MURMURS AND NO GALLOPS. LUNGS ARE CLEAR TO AUSCULTATION. THERE IS TENDERNESS IN THE LOWER BACK IN THE PARASPINAL MUSCLE GROUP. STRAIGHT LEG RAISE IS POSITIVE FOR RADICULOPATHY AT 30 DEGREES ON THE LEFT LEG. THE PATIENT SEEMS TO BE LIMPING FROM THE LEFT LEG. MRI OF THE LUMBAR SPINE DATED 08/2018 SHOWS BULGING DISC AT L4-L5 AND DISC PROTRUSION AT L5-S1. ASSESSMENTS INTERVERTEBRAL DISC DISORDERS WITH RADICULOPATHY, LUMBAR REGION - M51.16 (PRIMARY) INTERVERTEBRAL DISC DISORDER WITH RADICULOPATHY OF LUMBOSACRAL REGION - M51.17, RISK: (NULL) TREATMENT INTERVERTEBRAL DISC DISORDERS WITH RADICULOPATHY, LUMBAR REGION MEDICATION: VERSED 1MG IV (MIDAZOLAM) (ORDERED FOR 05/06/2020)ARCENIO DRAPER 04/28/2020 9:29:52 AM > LOT# [id number] EXP 09/27 KRISTA SANTAMARIA 04/28/2020 10:17:03 AM - SECOND DOSE ORDERED, VERIFIED WITH DR. QUIROGA ARCENIO DRAPER 04/28/2020 11:04:30 AM > ADMINISTERED AT 1012 ADMINISTERED AT 1016 SANDEE LE RN 04/28/2020 11:06:55 AM > VERIFIED AT 0929 MEDICATION: FENTANYL CITRATE 50MCG IV (ORDERED FOR 05/06/2020)ARCENIO DRAPER 04/28/2020 9:30:38 AM > LOT# [id number] EXP 10/27 ROSALIOKRISTA 04/28/2020 10:17:19 AM - SECOND DOSE ORDERED, VERIFIED WITH KRISTA LR 04/28/2020 10:19:41 AM - THIRD DOSE ORDERED, VERIFIED WITH DR. QUIROGA BONNYARCENIO 04/28/2020 11:06:19 AM > ADMINISTERED AT 1013 ADMINISTERED AT 1017 ADMINISTERED AT 1020 SANDEE LE RN 04/28/2020 11:07:24 AM > VERIFIED AT 0930 OXYGEN AT 2 LITERS PER NASAL CANNULA (ORDERED FOR 05/06/2020)ARCENIO DRAPER 04/28/2020 11:07:24 AM > PER MD ORDER IV LACTATED RINGER'S AT [facility] (ORDERED FOR 05/06/2020)ARCENIO DRAPER 04/28/2020 9:24:29 AM > IV ACCESS OBTAINED BY A GIA RN ON 2ND ATTEMPT. #22 LAC ARCENIO DRAPER 04/28/2020 11:09:28 AM > LR 250CC INFUSED CLINICAL NOTES: I DISCUSSED ALTERNATIVES WITH MS. LAI. WE AGREE ON PERFORMING A LEFT L4 AND LEFT L5 TRANSFORAMINAL EPIDURAL STEROID INJECTION WITH IV SEDATION DUE TO ANXIETY AND DISCOMFORT ASSOCIATED WITH THE PROCEDURE. THE PATIENT UNDER AND AGREES WITH THE PLAN. I, KRISTA SANTAMARIA, DOCUMENTED THE ABOVE INFORMATION ACTING A SCRIBE FOR DR. QUIROGA. I HAVE REVIEWED THE ABOVE DOCUMENT, WRITTEN BY KRISTA SANTAMARIA, PRECINCT CAPTAIN, AND I VERIFY THAT IT IS ACCURATE. PROCEDURE CODES FA211 ESTABILISHED PATIENT [facility] CHARGE 94326 OFFICE/OUTPATIENT VISIT EST DISPOSITION & COMMUNICATION FOLLOW UP PROCEDURE ALREADY BOOKED (REASON: LEFT L4, LEFT L5 TRANSFORAMINAL EPIDRUAL) ELECTRONICALLY SIGNED BY CATHY QUIROGA MD, MD ON 05/04/2020 AT 02:42 PM EDT DISCLAIMER : THIS IS A VISIT SUMMARY EXTRACTED FROM THE [employer] CHART. IT IS NOT A COPY OF THE [employer] PROGRESS NOTE. STANLEYD
== END ==
LOC: M PAIN 15:15
PROVIDERS: ATTEND Anesthesiology
DX: M51.16 Intervertebral disc disorders with radiculopathy, lumbar region (principal); M51.17 Intervertebral disc disorders with radiculopathy, lumbosacral region; G43.909 Migraine, unspecified, not intractable, without status migrainosus; F41.9 Anxiety disorder, unspecified; K75.81 Nonalcoholic steatohepatitis (NASH); F52.0 Hypoactive sexual desire disorder; R10.13 Epigastric pain; Z79.891 Long term (current) use of opiate analgesic; Z91.048 Other nonmedicinal substance allergy status

== ENCOUNTER → 2020-04-28 | Outpatient (CLI) | payer OTHER ==
[~2020-04-28] MED LIST changes: +BUPIVACAINE HCL 0.25% 30ML VIAL As Ordered ONE; +ISOVUE-M 300 61% 15ML VIAL As Ordered ONE; +LIDOCAINE 1% SDV 30ML VIAL As Ordered ONE; +MIDAZOLAM INJ 2MG/2ML VIAL (J2250 PER 1MG) As Ordered ONE; +dexameTHASONE 10MG/1ML VIAL PRES.FREE (J1100 PER 1MG) As Ordered ONE; +fentaNYL 100 MCG/2 ML INJECTION (J3010) As Ordered ONE
--- NOTE | 2020-04-28 12:00 | REP ---
INDICATION: LEFT TRANSFORAMINAL. Pain COMPARISON: 02/24/2020 TECHNIQUE: Multiple C-arm views lower lumbar spine performed during injections. FINDINGS: [place] are seen along the lower lumbar spine. Small amount of contrast was injected. IMPRESSION: 59 seconds fluoroscopy time utilized. <Electronically signed by Marcellus Mcinotsh > 04/28/20 1156
--- NOTE | 2020-05-02 16:51 | ECWPNPC ---
PATIENT NAME: MIKE LAI : 1980 GENDER: FEMALE VISIT DATE: 04/28/2020 DISCHARGE DATE: 04/28/20 1106 VISIT LOCKED DATE TIME: PHYSICIAN: CATHY QUIROGA MD PHYSICIAN PAGER NO: ACTIVE RESOURCE: CATHY QUIROGA MD REASON FOR APPOINTMENT 1. LEFT L4/5-L5/S1 TRANSFORAMINAL STEROID INJECTION W/ IV SEDATION HISTORY OF PRESENT ILLNESS PAIN CENTER INTAKE QUESTIONS: DO YOU HAVE A HISTORY OF MRSA? :NO DO YOU TAKE A BLOOD THINNERS? :NO DO YOU HAVE ANY BLEEDING DISORDERS? :NO ANY NEW NUMBNESS OR WEAKNESS IN YOUR LEGS OR ARMS? :NO ANY PACEMAKER,DEFIBRILLATOR, OR DORSAL COLUMN STIMULATOR? :NO DO YOU HAVE ANY RASHES OR OPEN SORES? :NO ARE YOU ALLERGIC TO IV DYE? :NO ARE YOU DIABETIC? :NO ANY NEW PROBLEMS WITH YOUR MEDICATIONS? :NO HAVE YOU RECEIVED A VACCINE IN THE PAST 30 DAYS? :NO DO YOU PLAN TO RECEIVE A VACCINE IN THE NEXT 21 DAYS? :NO PT EDUCATED REGARDING HOLDING FLU SHOT FOR 3 WEEKS POST PROCEDURE. DO YOU TAKE ANY IMMUNOSUPPRESSIVE MEDICATIONS? :NO ANY HISTORY OF SEIZURES? :NO ANY HISTORY OF CARDIAC ISSUES OR EVENTS? :NO DO YOU HAVE SLEEP APNEA? :NO ANY RECENT HEAD INJURY? :NO DO YOU HAVE ANY NEW INFECTIONS? :NO IS THERE A CHANCE YOU COULD BE ? :NO ARE YOU BREAST FEEDING? :NO WHEN DID YOU LAST EAT? : -04/27 1800 WHEN DID YOU LAST DRINK? : -04/28 0130 WHAT DID YOU LAST DRINK? : -WATER NAME OF PERSON DRIVING YOU HOME? : LAST DO YOU HAVE ANY OTHER QUESTIONS OR CONCERNS? : -PT STATES THAT SHE HAS BURN ON RIGHT FOREARM, NO OPEN AREAS, NO DRAINAGE. GENERAL: -. FALL RISK SCREENING: SCREENING :NO FALLS REPORTED IN THE LAST YEAR PAIN SCREENING: PATIENT HAS A COMPLAINT OF ACUTE OR CHRONIC PAIN :YES LOCATION OF PAIN:LOW BACK, LEG(S) INTENSITY OF PAIN (SCALE OF 1 TO 10):7 WHAT DOES YOUR PAIN FEEL LIKE:ACHING, SHARP, SHOOTING DURATION:CONSTANT, ALL DAY PAIN IS INCREASED BY:ACTIVITIES PAIN IS DECREASED BY:USE OF PAIN MEDICATIONS, OTHERS HEAT NURSING NOTE: -. CURRENT MEDICATIONS TAKING PHENTERMINE HCL 37.5 MG CAPSULE 1 CAPSULE ORALLY ONCE A DAY, NOTES: 04/27 1200 TAKING EXCEDRIN MIGRAINE 250-250-65 MG TABLET 2 TABLETS NEEDED ORALLY EVERY 6 HRS, NOTES: NONE RECENTLY TAKING AZELASTINE HCL 0.1 % SOLUTION 1 PUFF IN EACH NOSTRIL NASALLY TWICE A DAY, NOTES: 04/27 0800 TAKING HYDROCODONE-ACETAMINOPHEN 7.5-325 MG TABLET 1 TABLET NEEDED ORALLY Q8H PRN MDD4, NOTES: 04/27 1700 NOT-TAKING FLUTICASONE PROPIONATE 50 MCG/ACT SUSPENSION 1 SPRAY IN EACH NOSTRIL NASALLY ONCE A DAY NOT-TAKING NORCO 7.5-325 MG TABLET 1 TABLET NEEDED ORALLY Q8H PRN MDD3, NOTES: DUPLICATE MEDICATION LIST REVIEWED AND RECONCILED WITH THE PATIENT PAST MEDICAL HISTORY TENDONITIS- RAUL KNEE MIGRAINES URINARY STRESS INCONTINENCE ANXIETY, ?PTSD HISTORY OF TOBACCO USE DYSPEPSIA GRANADOS BILATERAL CARPAL TUNNEL SYNDROME CHRONIC BACK PAIN, 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 2 SON(S) - HEALTHY. SOCIAL HISTORY GENERAL: TOBACCO USE ARE YOU A:FORMER SMOKER HOW LONG HAS IT BEEN SINCE YOU LAST SMOKED?1-5 YEARS SMOKING CESSATION INFORMATION GIVEN05/10/2017 LATEX QUESTIONNAIRE LATEX ALLERGY : HAVE YOU EVER DEVELOPED ANY TYPE OF REACTION AFTER HANDLING LATEX PRODUCTS SUCH RUBBER GLOVES, CONDOMS, DIAPHRAGMS, BALLOONS, SOCKS, OR UNDERWEAR?NO LATEX ALLERGY : HAVE YOU EVER DEVELOPED ANY TYPE OF REACTION DURING OR AFTER DENTAL APPOINTMENT, VAGINAL/RECTAL EXAMINATION, SURGICAL PROCEDURE, OR ANY OTHER EXPOSURE?NO LATEX RISK : HAVE YOU EVER HAD ANY DIFFICULTY BREATHING OR HIVES AFTER EATING OR HANDLING ANY FRUITS, OR VEGETABLES; SUCH KIWI, BANANAS, STONE FRUITS, OR CHESTNUTSNO LATEX RISK : DO YOU HAVE A PREVIOUS PERSONAL HISTORY OF MORE THAN NINE SURGERIES, SPINA BIFIDA, OR REPEATED CATHERIZATIONS? NO LATEX RISK : ARE YOU FREQUENTLY EXPOSED TO LATEX PRODUCTS IN YOUR OCCUPATION?NO DATE ASKED : 04/27/2020 BMI CARE GOAL FOLLOW-UP ABOVE NORMAL BMI FOLLOW-UPDIETARY NEEDS EDUCATION ALCOHOL SCREENING DID YOU HAVE A DRINK CONTAINING ALCOHOL IN THE PAST YEAR?YES HOW OFTEN DID YOU HAVE SIX OR MORE DRINKS ON ONE OCCASION IN THE PAST YEAR?NEVER (0 POINTS) HOW MANY DRINKS DID YOU HAVE ON A TYPICAL DAY WHEN YOU WERE DRINKING IN THE PAST YEAR?1 OR 2 (0 POINTS) HOW OFTEN DID YOU HAVE A DRINK CONTAINING ALCOHOL IN THE PAST YEAR?MONTHLY OR LESS (1 POINT) POINTS1 INTERPRETATIONNEGATIVE RECREATIONAL DRUG USE DRUG USE?NO PATIENT DENIES ABUSE OR MISSUSED OF ANY MEDICATION. PATIENT DENIES USE OF ANY ILLEGAL SUBSTANCE INCLUDING MARIJUANA OR COCAINE. CAFFEINE CAFFEINE USE?YES HOW OFTEN AND HOW MUCH? 1-2 CUP SEXUAL HX HAD SEX IN THE LAST 12 MONTHS (VAGINAL, ORAL, OR ANAL)?YES WITHMEN ONLY PREVENTION STRATEGIES DISCUSSED:CONDOMS USE PROTECTION?NO LMP:08/29/2016 HAVE YOU EVER HAD AN STD?NO HIV / HEP-C SCREENING HIV TEST OFFERED TO PATIENT:YES DATE OFFERED:07/03/2016 TEST ACCEPTED:NO HEP-C TEST OFFERED TO PATIENT:YES DATE OFFERED:07/03/2016 REASON:PATIENT DECLINED TEST ACCEPTED:NO REASON:PATIENT DECLINED CONGREGATIONAL [id number] NONE LANGUAGE LANGUAGES SPOKEN:ANDORRAN EDUCATION LEVEL OF EDUCATION:NOT FINISHED COLLEGE LEARNING BARRIERS / SPECIAL NEEDS CHANGE FROM LAST VISIT?NO BARRIERS TO LEARNING?NO HEARING IMPAIRED?NO VISION IMPAIRED?YES :CORRECTIVE LENSES COGNITIVELY IMPAIRED?NO READINESS TO LEARN?YES LEARNING PREFERENCES?NO LEARNING CAPABILITIES PRESENT?YES EMOTIONAL BARRIERS?NO SPECIAL DEVICES?NO CORN CHIP MAKER NEEDED?NO DOMESTIC VIOLENCE DO YOU FEEL SAFE IN YOUR ENVIRONMENT?YES 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 MARITAL STATUS: SINGLE. OTHERS AT HOME: CHILD, OTHER NON-RELATIVE. PAIN CLINIC PFS, CLERGY, PUBLIC HEALTH REFERRALS WAS THE PROVIDER NOTIFIED OF ANY PERTINENT INFO?YES N/A HAS THE PATIENT BEEN EDUCATED REGARDING HIS/HER PLAN OF CARE?YES HAS THE PATIENT BEEN EDUCATED REGARDING PAIN, THE RISK FOR PAIN, THE IMPORTANCE OF EFFECTIVE PAIN MANAGEMENT, AND THE PAIN ASSESSMENT PROCESS?YES ADVANCE DIRECTIVE ADVANCE DIRECTIVE DISCUSSED WITH PATIENT:YES HCP VIGNESH HERRON [phone] HOSPITALIZATION/MAJOR DIAGNOSTIC PROCEDURE RELATED TO SURGERY VITAL SIGNS WT 191.4 LBS, HT 67 IN, BMI 29.97 INDEX, BP 136/115 R.A., REPEAT BP 139/106 L.A., HR 82 /MIN, RR 18 /MIN, TEMP 97.7 F, OXYGEN SAT % 97%, SAFE IN ENV? (Y/N) YES, NA INITIALS SC 08:24, REVIEWED BY: SHASHI. EXAMINATION GENERAL EXAMINATION: A HISTORY AND PHYSICAL EXAM ON THE PATIENT WAS DONE ON 04/25/2020 (DATE OF ORIGINAL ASSESSMENT) IN PREPARATION OF SURGERY/PROCEDURE. I HAVE NOW REASSESSED THIS PATIENT'S HEALTH STATUS AND PERFORMED AN UPDATED EXAM TODAY. ALL CHANGES IN THE PATIENT'S HISTORY, PHYSICAL EXAM, PRE-EXISTING CONDITONS, AND INDICATIONS/CONTRAINDICATIONS TO THE PLANNED PROCEDURE AND ANESTHESIA ARE DOCUMENTED AND EVALUATED BELOW. I ATTEST TO THE ADEQUACY AND APPROPRIATENESS OF MY ASSESSMENT, AND CONFIRM THE NECESSITY FOR THE PLANNED PROCEDURE. THE PATIENT IS ALERT, ORIENTED TIMES THREE AND COOPERATIVE. HEART SHOWS REGULAR RHYTHM, NO MURMURS AND NO GALLOPS. LUNGS ARE CLEAR TO AUSCULTATION. ASSESSMENTS INTERVERTEBRAL DISC DISORDERS WITH RADICULOPATHY, LUMBAR REGION - M51.16 (PRIMARY), RISK: (NULL) INTERVERTEBRAL DISC DISORDER WITH RADICULOPATHY OF LUMBOSACRAL REGION - M51.17, RISK: (NULL) TREATMENT INTERVERTEBRAL DISC DISORDERS WITH RADICULOPATHY, LUMBAR REGION [facility] FACET BLOCK (PAIN)[id number] MEDICATION: [facility] 04[facility] 9:29:52 AM > LOT# [id number] EXP 09/27 KRISTA SANTAMARIA 04/28/2020 10:17:03 AM - SECOND DOSE ORDERED, VERIF[facility] 04/28/2020 11:04:30 AM > ADMINISTERED AT 1012 ADMINISTERED AT 1016 SANDEE LE RN 04/28/2020 11:06:55 AM > VERIFIED AT 0929 MEDICATION: FENTANYL CITRATE 50MCG IV [facility] 04/28/2020 9:30:38 AM > LOT# [id number] EXP 10/27 KRISTA SANTAMARIA 04/28/2020 10:17:19 AM - SECOND DOSE ORDERED, VERIFIED WITH KRISTA LR 04/28/2020 10:19:41 AM - THIRD DOSE ORDERED, VERIFIED WITH DR[facility] 04/28/2020 11:06:19 AM > ADMINISTERED AT 1013 ADMINISTERED AT 1017 ADMINISTERED AT 1020 SANDEE LE RN 04/28/2020 11:07:24 AM > VERIFIED AT 0930 OXYGEN AT 2 LITERS PER NASAL CANNULAARCENIO DRAPER 04/28/2020 11:07:24 AM > PER MD ORDER IV [facility] 04/28/2020 9:24:29 AM > IV ACCESS OBTAINED BY A GIA SEVILLA ON 2ND ATTEMPT. #22 ARCENIO CAMPOS 04/28/2020 11:09:28 AM > LR 250CC INFUSED INTERVERTEBRAL DISC DISORDER WITH RADICULOPATHY OF LUMBOSACRAL REGION [facility] FACET BLOCK (PAIN)[id number] OTHERS NOTES: PAT COMPLETED 04/27/20 DS. PROCEDURES PAIN NURSING RECORD PRE-PROCEDURE IV SITE SEE IV ORDER, PRE-PROCEDURE ORAL MEDICATIONS N/A PROCEDURE IN ROOM 0948 PT AMBULATED TO PROCEDURE ROOM AND POSITIONED SELF ON TABLE WITH MIN 1 ASSIST, GAIT STEADY, PT TOLERATED AMBULATION AND POSITIONING WELL., PHYSICIAN IN ROOM 1012, START 1018, FINISH 1037, PHYSICIAN OUT OF ROOM 1039, OUT OF ROOM 1045, STEROID DEXAMETHASONE 10MG PER LEVEL, O2 NC 2 LPM, ECG NORMAL SINUS, PATIENT SHIELDED YES, SAFETY STRAP YES, PREP BETADINE, IV INFUSED LACTATED RINGERS, DRESSING TEGADERM QUIROGA LOC: SANDEE LE RN 04/28/2020 10:10:55 AM > , 1. ALERT, ORIENTED , SANDEE LE RN 04/28/2020 10:25:23 AM > , 2. DROWSY, RESPONDS APPROPRIATELY , SANDEE LE RN 04/28/2020 10:42:59 AM > , 1. ALERT, ORIENTED RESP: SANDEE LE RN 04/28/2020 10:10:14 AM > , 1. REGULAR, NO DYSPNEA COLOR: SANDEE LE RN 04/28/2020 10:10:23 AM > , 1. PINK SKIN: SANDEE LE RN 04/28/2020 10:10:30 AM > , 1. WARM, DRY POSITION: SANDEE LE RN 04/28/2020 10:10:45 AM > , 1. PRONE VITALS: SANDEE LE RN 04/28/2020 09:55:02 AM > 162/110, 70, 18, 100% , SANDEE LE RN 04/28/2020 10:05:45 AM > 164/116, 71, 18, 100% , SANDEE LE RN 04/28/2020 10:10:11 AM > 159/102, 78, 18, 100% , SANDEE LE RN 04/28/2020 10:15:33 AM > 159/106, 78, 18, 100% , SANDEE LE RN 04/28/2020 10:20:24 AM > 159/102, 78, 18, 100% , SANDEE LE RN 04/28/2020 10:25:53 AM > 195/113, 72, 18, 100% , SANDEE LE RN 04/28/2020 10:30:33 AM > 163/71, 73, 18, 100% , SANDEE LE RN 04/28/2020 10:35:00 AM > 170/106, 80, 18, 100% , SANDEE LE RN 04/28/2020 10:40:27 AM > 170/106, 80, 18, 100% , SANDEE LE RN 04/28/2020 10:45:00 AM > 163/78, 71, 18, 100% , SANDEE LE RN 04/28/2020 10:56:39 AM > 137/95, 69, 18, 95% (DISCHARGE) DISCHARGE: POST PAIN 0, DRESSING SITE DRY AND INTACT, IV DISCONTINUED, SITE CLEAR, CATHETER INTACT, GAIT WHEELCHAIR, TEACHING COMPLETED, PATIENT ACKNOWLEDGES UNDERSTANDING YES, PATIENT DISCHARGED AT 1100 PN LUMBAR TRANSFORAMINAL BLOCKS PRE PROCEDURE DIAGNOSIS LUMBAR DISC DISORDER WITH RADICULOPATHY POST PROCEDURE DIAGNOSIS LUMBAR DISC DISORDER WITH RADICULOPATHY PROCEDURE LEFT L4 AND LEFT L5 TRANSFORAMINAL EPIDURAL STEROID INJECTION UNDER FLUOROSCOPIC GUIDANCE SURGEON DR CATHY QUIROGA BRANCH STORE MANAGER NONE ANESTHESIA LOCAL PRE PROCEDURE NOTE THE PATIENT WITH HISTORY OF CHRONIC LOW BACK PAIN. I EVALUATED THE PATIENT AND REVIEWED THE CHART. I WENT OVER THE RISKS, ALTERNATIVES, AND BENEFITS ASSOCIATED WITH THIS PROCEDURE. I DISCUSSED THAT THE USE OF STEROIDS MAY CONTRIBUTE TO IMMUNOSUPPRESSION OF THE PATIENT'S BODY AGAINST INFECTIONS SUCH COVID-19. THE PATIENT IS AWARE OF THE POTENTIAL COMPLICATIONS ASSOCIATED WITH THIS VIRUS, INCLUDING, BUT NOT LIMITED TO, . THE PATIENT WOULD LIKE TO PROCEED AND GIVE CONSENT TO PERFORMED THE PROCEDURE. THE PATIENT WOULD LIKE TO MOVE FORWARD WITH IV SEDATION DUE TO ANXIETY AND DISCOMFORT ASSOCIATED WITH THE PROCEDURE. THE PATIENT DENIES UNEXPLAINABLE WEIGHT LOSS, FEVER, CHILLS, OR CHANGES IN URINARY OR BOWEL CONTROL. THE PATIENT IS COVID-19 NEGATIVE DESCRIPTION OF PROCEDURE THE PATIENT WAS BROUGHT TO THE PROCEDURE ROOM AND PLACED IN THE PRONE POSITION. THE LUMBOSACRAL AREA WAS CLEANED WITH BETADINE SOLUTION AND DRAPED ASEPTICALLY. THE PROCEDURE WAS DONE UNDER STERILE CONDITIONS. A TIMEOUT WAS PERFORMED WHERE LATERALITY AND THE SITE OF THE PROCEDURE WERE CHECKED AND CONFIRMED WITH EVERYONE IN THE ROOM. UNDER FLUOROSCOPIC GUIDANCE, THE TARGET POINT WAS SELECTED AT THE LEFT TRANSFORAMINAL OPENING OF LEFT. TARGET POINT WAS SELECTED AFTER LATERAL ROTATION AND TILT OF THE MAGNIFIER OF THE C-ARM. I CONFIRMED AGAIN WITH EVERYONE IN THE ROOM THE LATERALITY OF THE TARGET. LIDOCAINE 0.5% WAS USED TO NUMB THE SKIN AND THE SUBCUTANEOUS TISSUE BELOW IT. AN EPIMED INTRODUCER, 18-GAUGE, WAS ADVANCED UNTIL I WENT CLOSE TO THE SELECTED TRANSFORAMINAL OPENINGS. AFTER PROPER POSITION OF THE NEEDLES WAS ACHIEVED, A 22-GAUGE, EPIMED NEEDLE, WAS PLACED INSIDE OF THE INTRODUCER AND ADVANCED TO THE TRANSFORAMINAL OPENING OF THE SELECTED SITES. WHEN PROPER POSITION OF THE NEEDLE WAS ACHIEVED, ISOVUE-M DYE 30%, 0.25 ML, WAS INJECTED SHOWING ADEQUATE SPREAD OF THE DYE. THIS WAS DONE UNDER DIGITAL SUBTRACTION AND ANGIOGRAPHY. THERE WAS NO VASCULAR UPDATE. THEN, A SOLUTION OF 2 ML OF BUPIVACAINE 0.25% AND DEXAMETHASONE 10 MG WAS INJECTED AT EACH SITE. THE MEDICATION WAS VERIFIED WITH THE NURSE. THERE WAS NO EVIDENCE OF BLOOD, PARESTHESIA OR CEREBROSPINAL FLUID DURING THE PROCEDURE. THE PATIENT WAS SENT TO THE RECOVERY ROOM. THE PATIENT WAS MOVING THE EXTREMITIES AND DOING WELL. THERE WAS NO COMPLICATION DURING THE PROCEDURE. ESTIMATED BLOOD LOSS WAS LESS THAN 5 ML. FLUOROSCOPY TIME WAS 1 MINUTE 2 SECONDS. THE PATIENT RECEIVED VERSED 2 MG AND FENTANYL 150 MCG IV IN DIVIDED DOSES. FCRG-LU-OQNI START TIME 1012. EWNJ-XY-LPOE END TIME 1040. TOTAL QRZA-ER-HVQR WAS 28 MINUTES. POST PROCEDURE NOTE THE PROCEDURE DONE WAS DISCUSSED WITH THE PATIENT. THE PATIENT WILL BE SEEN IN A FOLLOW UP IN THE NEXT FEW WEEKS. I AM LOOKING FOR LONG LASTING PAIN RELIEF FOR THE PATIENT WITH THIS INTERVENTION. INSTRUCTIONS WERE GIVEN, QUESTIONS WERE ANSWERED, AND THE PATIENT EXPRESSED UNDERSTANDING AND AGREES WITH THE PLAN. I, KRISTA SANTAMARIA, DOCUMENTED THE ABOVE INFORMATION ACTING A SCRIBE FOR DR. QUIROGA. I HAVE REVIEWED THE ABOVE DOCUMENT, WRITTEN BY KRISTA SANTAMARIA, SHUTTLE TRUCK DRIVER, AND I VERIFY THAT IT IS ACCURATE PROCEDURE CODES 38343 INJ FORAMEN EPIDURAL L/S, [place]: [place] [address] INJ FORAMEN EPIDURAL ADD-ON, [place] [address] MOD SED SAME PHYS/QHP 5/>YRS 63274 MOD SED SAME PHYS/QHP EA DISPOSITION & COMMUNICATION FOLLOW UP FOLLOW UP WITH SUBASSEMBLER (REASON: POST LEFT L4, L5 TRANSFORAMINAL) ELECTRONICALLY SIGNED BY CATHY QUIROGA MD, MD ON 05/02/2020 AT 02:07 PM EDT DISCLAIMER : THIS IS A VISIT SUMMARY EXTRACTED FROM THE [employer] CHART. IT IS NOT A COPY OF THE [employer] PROGRESS NOTE. DOROTHEA
== END ==
LOC: M PAIN 08:00
PROVIDERS: ATTEND Anesthesiology
DX: M51.16 Intervertebral disc disorders with radiculopathy, lumbar region (principal); M51.17 Intervertebral disc disorders with radiculopathy, lumbosacral region; G43.909 Migraine, unspecified, not intractable, without status migrainosus; Z86.59 Personal history of other mental and behavioral disorders; Z87.891 Personal history of nicotine dependence; Z91.09 Other allergy status, other than to drugs and biological substances; Z79.899 Other long term (current) drug therapy
CPT/HCPCS: 64483; 64484; 99152; 99153; J1100; J2250; J3010; Q9967

== ENCOUNTER → 2020-05-17 | Outpatient (CLI) | payer OTHER ==
[~2020-05-17] MED LIST changes: -BUPIVACAINE HCL 0.25% 30ML VIAL As Ordered ONE; -ISOVUE-M 300 61% 15ML VIAL As Ordered ONE; -LIDOCAINE 1% SDV 30ML VIAL As Ordered ONE; -MIDAZOLAM INJ 2MG/2ML VIAL (J2250 PER 1MG) As Ordered ONE; -dexameTHASONE 10MG/1ML VIAL PRES.FREE (J1100 PER 1MG) As Ordered ONE; -fentaNYL 100 MCG/2 ML INJECTION (J3010) As Ordered ONE
--- NOTE | 2020-05-19 02:25 | ECWPNPC ---
PATIENT NAME: MIKE LAI : 1980 GENDER: FEMALE VISIT DATE: 05/17/2020 DISCHARGE DATE: 05/17/20 09 VISIT LOCKED DATE TIME: PHYSICIAN: SABIHA BERNARDO PHYSICIAN PAGER NO: ACTIVE RESOURCE: SABIHA BERNARDO REASON FOR APPOINTMENT 1. POST LEFT TRANSFORAMINAL HISTORY OF PRESENT ILLNESS DEPRESSION SCREENING: PHQ-2 (2015 EDITION) LITTLE INTEREST OR PLEASURE IN DOING THINGS?NOT AT ALL FEELING DOWN, DEPRESSED, OR HOPELESS?NOT AT ALL TOTAL SCORE0 GENERAL: HERE FOR POST PROCEDURE FOLLOW-UP. HAD LEFT TRANSFORAMINAL STEROID INJECTION WITH IV SEDATION ON 04/28/2020. REPORTING 2 DAYS OF IMPROVEMENT IN PAIN AND THEN PAIN RETURNED TO BASELINE. PAIN IS LOCATED AROUND SACROCOCCYX AREA ESPECIALLY WHEN SITTING OR GETTING UP FROM SITTING TO STANDING POSITION. REVIEWED MRI OF THE LS-SPINE. CONSULTED WITH DR. QUIROGA REGARDING PATIENT'S COMPLAINTS AND HE IS RECOMMENDING A BILATERAL SACROCOCCYGEAL BLOCK. CONTINUES TO FIND MEDICATION SOMEWHAT EFFECTIVE AT REDUCING PAIN AND HELPING HER TO SUSTAIN HER FULL-TIME JOB. DENIES ADVERSE SIDE EFFECTS. BRINGS IN HER MEDICATION WHICH IS APPROPRIATE FOR WHAT WAS DISPENSED.-. FALL RISK SCREENING: SCREENING :NO FALLS REPORTED IN THE LAST YEAR PAIN SCREENING: PATIENT HAS A COMPLAINT OF ACUTE OR CHRONIC PAIN :YES LOCATION OF PAIN: GENERALIZED, LOW BACK INTO UPPER BACK, RIGHT LEG OWN BACK OF LEG, LEFT LEG KNEE DOWN. INTENSITY OF PAIN (SCALE OF 1 TO 10):6 WHAT DOES YOUR PAIN FEEL LIKE:ACHING, CONTINOUS, STABBING DURATION:CONSTANT PAIN IS INCREASED BY:ACTIVITIES "EVERYTHING" PLAN/GOALS/TREATMENT/INTERVENTION/FOLLOW UP:SEE PLAN NURSING NOTE: -. PAIN CENTER INTAKE QUESTIONS: DO YOU HAVE A HISTORY OF MRSA? :NO DO YOU TAKE A BLOOD THINNERS? :NO DO YOU HAVE ANY BLEEDING DISORDERS? :NO ANY NEW NUMBNESS OR WEAKNESS IN YOUR LEGS OR ARMS? :NO ANY PACEMAKER,DEFIBRILLATOR, OR DORSAL COLUMN STIMULATOR? :NO DO YOU HAVE ANY RASHES OR OPEN SORES? :NO ARE YOU ALLERGIC TO IV DYE? :NO ARE YOU DIABETIC? :NO ANY NEW PROBLEMS WITH YOUR MEDICATIONS? :NO HAVE YOU RECEIVED A VACCINE IN THE PAST 30 DAYS? :NO DO YOU PLAN TO RECEIVE A VACCINE IN THE NEXT 21 DAYS? :NO DO YOU NEED ANY PRESCRIPTION? :NO DO YOU TAKE ANY IMMUNOSUPPRESSIVE MEDICATIONS? :NO IS THERE A CHANCE YOU COULD BE ? :NO ARE YOU BREAST FEEDING? :NO CURRENT MEDICATIONS TAKING EXCEDRIN MIGRAINE 250-250-65 MG TABLET 2 TABLETS NEEDED ORALLY EVERY 6 HRS, NOTES: NONE RECENTLY TAKING AZELASTINE HCL 0.1 % SOLUTION 1 PUFF IN EACH NOSTRIL NASALLY TWICE A DAY TAKING HYDROCODONE-ACETAMINOPHEN 7.5-325 MG TABLET 1 TABLET NEEDED ORALLY Q8H PRN MDD4 TAKING PHENTERMINE HCL 37.5 MG CAPSULE 1 CAPSULE ORALLY ONCE A DAY TAKING FAMOTIDINE 40 MG TABLET 1 TABLET AT BEDTIME ORALLY ONCE A DAY NOT-TAKING FLUTICASONE PROPIONATE 50 MCG/ACT SUSPENSION 1 SPRAY IN EACH NOSTRIL NASALLY ONCE A DAY MEDICATION LIST REVIEWED AND RECONCILED WITH THE PATIENT PAST MEDICAL HISTORY TENDONITIS- RAUL KNEE MIGRAINES URINARY STRESS INCONTINENCE ANXIETY, ?PTSD HISTORY OF TOBACCO USE DYSPEPSIA GRANADOS BILATERAL CARPAL TUNNEL SYNDROME CHRONIC BACK PAIN, 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 2 SON(S) - HEALTHY. SOCIAL HISTORY GENERAL: TOBACCO USE ARE YOU A:FORMER SMOKER HOW LONG HAS IT BEEN SINCE YOU LAST SMOKED?1-5 YEARS SMOKING CESSATION INFORMATION GIVEN05/10/2017 LATEX QUESTIONNAIRE LATEX ALLERGY : HAVE YOU EVER DEVELOPED ANY TYPE OF REACTION AFTER HANDLING LATEX PRODUCTS SUCH RUBBER GLOVES, CONDOMS, DIAPHRAGMS, BALLOONS, SOCKS, OR UNDERWEAR?NO LATEX ALLERGY : HAVE YOU EVER DEVELOPED ANY TYPE OF REACTION DURING OR AFTER DENTAL APPOINTMENT, VAGINAL/RECTAL EXAMINATION, SURGICAL PROCEDURE, OR ANY OTHER EXPOSURE?NO LATEX RISK : HAVE YOU EVER HAD ANY DIFFICULTY BREATHING OR HIVES AFTER EATING OR HANDLING ANY FRUITS, OR VEGETABLES; SUCH KIWI, BANANAS, STONE FRUITS, OR CHESTNUTSNO LATEX RISK : DO YOU HAVE A PREVIOUS PERSONAL HISTORY OF MORE THAN NINE SURGERIES, SPINA BIFIDA, OR REPEATED CATHERIZATIONS? NO LATEX RISK : ARE YOU FREQUENTLY EXPOSED TO LATEX PRODUCTS IN YOUR OCCUPATION?NO DATE ASKED : 05/17/2020 BMI CARE GOAL FOLLOW-UP ABOVE NORMAL BMI FOLLOW-UPDIETARY NEEDS EDUCATION ALCOHOL SCREENING DID YOU HAVE A DRINK CONTAINING ALCOHOL IN THE PAST YEAR?YES HOW OFTEN DID YOU HAVE SIX OR MORE DRINKS ON ONE OCCASION IN THE PAST YEAR?NEVER (0 POINTS) HOW MANY DRINKS DID YOU HAVE ON A TYPICAL DAY WHEN YOU WERE DRINKING IN THE PAST YEAR?1 OR 2 (0 POINTS) HOW OFTEN DID YOU HAVE A DRINK CONTAINING ALCOHOL IN THE PAST YEAR?MONTHLY OR LESS (1 POINT) POINTS1 INTERPRETATIONNEGATIVE RECREATIONAL DRUG USE DRUG USE?NO PATIENT DENIES ABUSE OR MISSUSED OF ANY MEDICATION. PATIENT DENIES USE OF ANY ILLEGAL SUBSTANCE INCLUDING MARIJUANA OR COCAINE. CAFFEINE CAFFEINE USE?YES HOW OFTEN AND HOW MUCH? 1-2 CUP SEXUAL HX HAD SEX IN THE LAST 12 MONTHS (VAGINAL, ORAL, OR ANAL)?YES WITHMEN ONLY PREVENTION STRATEGIES DISCUSSED:CONDOMS USE PROTECTION?NO LMP:08/29/2016 HAVE YOU EVER HAD AN STD?NO HIV / HEP-C SCREENING HIV TEST OFFERED TO PATIENT:YES DATE OFFERED:07/03/2016 TEST ACCEPTED:NO HEP-C TEST OFFERED TO PATIENT:YES DATE OFFERED:07/03/2016 REASON:PATIENT DECLINED TEST ACCEPTED:NO REASON:PATIENT DECLINED MORAVIAN [id number] NONE LANGUAGE LANGUAGES SPOKEN:CANADIAN EDUCATION LEVEL OF EDUCATION:NOT FINISHED COLLEGE LEARNING BARRIERS / SPECIAL NEEDS CHANGE FROM LAST VISIT?NO BARRIERS TO LEARNING?NO HEARING IMPAIRED?NO VISION IMPAIRED?YES COGNITIVELY IMPAIRED?NO :CORRECTIVE LENSES READINESS TO LEARN?YES LEARNING PREFERENCES?NO LEARNING CAPABILITIES PRESENT?YES EMOTIONAL BARRIERS?NO SPECIAL DEVICES?NO GARMENT SEWING MACHINE OPERATOR NEEDED?NO DOMESTIC VIOLENCE DO YOU FEEL SAFE IN YOUR ENVIRONMENT?YES 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 MARITAL STATUS: SINGLE. OTHERS AT HOME: CHILD, OTHER NON-RELATIVE. PAIN CLINIC PFS, CLERGY, PUBLIC HEALTH REFERRALS WAS THE PROVIDER NOTIFIED OF ANY PERTINENT INFO?YES N/A HAS THE PATIENT BEEN EDUCATED REGARDING HIS/HER PLAN OF CARE?YES HAS THE PATIENT BEEN EDUCATED REGARDING PAIN, THE RISK FOR PAIN, THE IMPORTANCE OF EFFECTIVE PAIN MANAGEMENT, AND THE PAIN ASSESSMENT PROCESS?YES ADVANCE DIRECTIVE ADVANCE DIRECTIVE DISCUSSED WITH PATIENT:YES HCP VIGNESH HERRON [phone] HOSPITALIZATION/MAJOR DIAGNOSTIC PROCEDURE RELATED TO SURGERY REVIEW OF SYSTEMS CONSTITUTIONAL: ANY RECENT FEVER NO . CHILLS NO . WEIGHT CHANGE OF UNKNOWN REASONS NO . GASTROENTEROLOGY: NEW UNEXPLAINABLE CHANGES IN BOWEL CONTROL NO . CONSTIPATION NO . GENITOURINARY: ANY NEW CHANGE IN BLADDER CONTROL? NO . NEUROLOGY: NEW ONSET DIZZINESS OR NEUROLOGICAL CHANGES NOT MENTIONED NO . NEW NUMBNESS OR PAIN PATTERNS NOT MENTIONED AND PERTINENT TO TODAY'S VISIT NO . CARDIOLOGY: NEW CHEST PRESSURE NO . NEW CHEST PAIN NO . RESPIRATORY: UNEXPLAINABLE COUGH NO . NEW SHORTNESS OF BREATH NO . VITAL SIGNS WT 192 LBS, HT 67 IN, BMI 30.07 INDEX, BP 159/85 MM HG, HR 80 /MIN, RR 18 /MIN, TEMP 97.2 F, OXYGEN SAT % 98%, SAFE IN ENV? (Y/N) YES, NA INITIALS FL 08:57, REVIEWED BY: MTM. MEDELLIN. MAINSPRING WINDER AND OILER. EXAMINATION GENERAL EXAMINATION: GENERAL AWAKE,ALERT ,PLEASANT . PSYCH AFFECT NORMAL . LUNGS: LUNG RICO ARE CLEAR TO AUSCULTATION BILATERALLY. GOOD MOVEMENT OF AIR . HEART: S1, S2 IN A REGULAR RATE AND RHYTHM. NO SIGNIFICANT MURMURS, RUBS OR GALLOPS NOTED . LUMBAR:PALPATION: + FOR PAIN OVER L/S SPINE.. SPECIFIC POINT TENDERNESS NOTED OVER SACRAL SPINE.. NEUROLOGIC EXAM: NORMAL SENSATION LIGHT TOUCH BILAT. LOWER EXTREMITIES. DIAGNOSTIC TESTS REVIEWED MRI L/S SPINE-08/20/18. ASSESSMENTS OTHER CHRONIC PAIN - G89.29 (PRIMARY) SACROCOCCYGEAL PAIN - M53.3 TREATMENT OTHER CHRONIC PAIN PAIN PROCEDURE LOGDATE OF [id number]/22/20PROCEDURE:LEFT TRANSFORAMINALAMOUNT OF PRE SEDATEIV SEDATION; 2MG VERSED; 150 MCG FENTANYLRESULT:ONLY 2 DAYS IMPROVEMENT IN PAIN NOTES: BILATERAL SACROCOCCYGEAL LIGAMENT BLOCK WITH IV SEDATION. , ISTOP REGISTRY REVIEWED AND DEMONSTRATES COMPLLIANCE. BRINGS IN MEDICATIONS WHICH IS APPROPRIATE FOR WHAT WAS DISPENSED. RECENT URINE TOXICOLOGY REVIEWED. NO UNAUTHORIZED MEDICATIONS. NO ILLICIT SUBSTANCES AND PRESCRIBED MEDICATIONS WERE PRESENT. URINE TOXICOLOGY TODAY , RISKS OF NARCOTIC/OPIOD MEDICATIONS INCLUDES BUT IS NOT LIMITED TO RISK OF DEPENDANCE/DEVELOPMENT OF ADDICTION, MOOD DISTURBANCE AND DEPRESSION, OSTEOPOROSIS, HORMONAL AND LABIDAL CHANGES, RESPIRATORY DEPRESSION AND . PATIENT IS ADVISED NOT TO DRIVE OR DRINK ALCOHOL WHILE ON THESE MEDICATIONS. 05/17/20 0914 NURSE PROVIDED PATIENT WITH PRE PROCEDURE INSTRUCTIONS, PATIENT VERBALIZED UNDERSTANDING. PATIENT PROVIDED UTOX, SENT FOR ANALYSIS. PROCEDURE CODES FA211 ESTABILISHED PATIENT [facility]AC[facility] CHARGE DISPOSITION & COMMUNICATION FOLLOW UP PRESEDATION APPOINTMENT DR. Page, POST PROCEDURE SABIHA (REASON: BILATERAL SACROCOCCYGEAL LIGAMENT BLOCK WITH IV SEDATION) ELECTRONICALLY SIGNED BY TOBIAS KABA ON 05/18/2020 AT 10:31 AM EST DISCLAIMER : THIS IS A VISIT SUMMARY EXTRACTED FROM THE [employer] CHART. IT IS NOT A COPY OF THE [employer] PROGRESS NOTE. DOROTHEA
== END ==
LOC: M PAIN 09:15
PROVIDERS: ATTEND Nurse Practitioner Family
DX: G89.29 Other chronic pain (principal); M53.3 Sacrococcygeal disorders, not elsewhere classified; F41.9 Anxiety disorder, unspecified; F43.10 Post-traumatic stress disorder, unspecified; G43.909 Migraine, unspecified, not intractable, without status migrainosus; R10.13 Epigastric pain; K75.81 Nonalcoholic steatohepatitis (NASH); M51.16 Intervertebral disc disorders with radiculopathy, lumbar region; Z79.899 Other long term (current) drug therapy; Z87.891 Personal history of nicotine dependence; Z91.048 Other nonmedicinal substance allergy status

== ENCOUNTER → 2020-05-30 | Outpatient (CLI) | payer OTHER ==
--- NOTE | 2020-06-14 02:18 | ECWPNPC ---
PATIENT NAME: MIKE LAI : 1980 GENDER: FEMALE VISIT DATE: 05/30/2020 DISCHARGE DATE: 05/30/20816 VISIT LOCKED DATE TIME: PHYSICIAN: CATHY QUIROGA MD PHYSICIAN PAGER NO: ACTIVE RESOURCE: CATHY QUIROGA MD REASON FOR APPOINTMENT 1. PRE SEDATE FOR SACRO COCCYGEAL BLK W/ IV SEDATE HISTORY OF PRESENT ILLNESS GENERAL: 40-YEAR-OLD FEMALE PATIENT WITH A HISTORY OF CHRONIC LOW BACK PAIN. THE PATIENT DESCRIBES THE PAIN ACHING AND SHOOTING WITH A PAIN SCORE RANGING FROM 7-10/10 DEPENDING ON PHYSICAL ACTIVITY OVER THE COCCYGEAL AREA. THIS IS AFFECTING HER ABILITY TO MOVE AROUND AND SIT. SHE IS VERY UNCOMFORTABLE. SHE HAS BEEN USING MEDICATIONS THAT HAVE NOT BEEN HELPING. PATIENT DENIES UNEXPLAINABLE WEIGHT LOSS, FEVER, CHILLS, NEW CHANGES ON URINARY OR BOWEL CONTROL. FALL RISK SCREENING: SCREENING :NO FALLS REPORTED IN THE LAST YEAR PAIN SCREENING: PATIENT HAS A COMPLAINT OF ACUTE OR CHRONIC PAIN :YES LOCATION OF PAIN: LOW BACK, BILATERAL KNEES, BOTH LEGS INTENSITY OF PAIN (SCALE OF 1 TO 10):8 WHAT DOES YOUR PAIN FEEL LIKE:ACHING, SHOOTING DURATION:CONTINOUS PAIN IS INCREASED BY:ACTIVITIES, PROLONGED STANDING NURSING NOTE: -. PAIN CENTER INTAKE QUESTIONS: DO YOU HAVE A HISTORY OF MRSA? :NO DO YOU TAKE A BLOOD THINNERS? :NO DO YOU HAVE ANY BLEEDING DISORDERS? :NO ANY NEW NUMBNESS OR WEAKNESS IN YOUR LEGS OR ARMS? :NO ANY PACEMAKER,DEFIBRILLATOR, OR DORSAL COLUMN STIMULATOR? :NO DO YOU HAVE ANY RASHES OR OPEN SORES? :NO ARE YOU ALLERGIC TO IV DYE? :NO ARE YOU DIABETIC? :NO ANY NEW PROBLEMS WITH YOUR MEDICATIONS? :NO HAVE YOU RECEIVED A VACCINE IN THE PAST 30 DAYS? :NO DO YOU PLAN TO RECEIVE A VACCINE IN THE NEXT 21 DAYS? :NO DO YOU NEED ANY PRESCRIPTION? :NO DO YOU TAKE ANY IMMUNOSUPPRESSIVE MEDICATIONS? :NO IS THERE A CHANCE YOU COULD BE ? :NO ARE YOU BREAST FEEDING? :NO CURRENT MEDICATIONS TAKING EXCEDRIN MIGRAINE 250-250-65 MG TABLET 2 TABLETS NEEDED ORALLY EVERY 6 HRS TAKING AZELASTINE HCL 0.1 % SOLUTION 1 PUFF IN EACH NOSTRIL NASALLY TWICE A DAY TAKING HYDROCODONE-ACETAMINOPHEN 7.5-325 MG TABLET 1 TABLET NEEDED ORALLY Q8H PRN MDD4 TAKING PHENTERMINE HCL 37.5 MG CAPSULE 1 CAPSULE ORALLY ONCE A DAY TAKING FAMOTIDINE 40 MG TABLET 1 TABLET AT BEDTIME ORALLY ONCE A DAY NOT-TAKING FLUTICASONE PROPIONATE 50 MCG/ACT SUSPENSION 1 SPRAY IN EACH NOSTRIL NASALLY ONCE A DAY MEDICATION LIST REVIEWED AND RECONCILED WITH THE PATIENT PAST MEDICAL HISTORY TENDONITIS- RAUL KNEE MIGRAINES URINARY STRESS INCONTINENCE ANXIETY, ?PTSD HISTORY OF TOBACCO USE DYSPEPSIA GRANADOS BILATERAL CARPAL TUNNEL SYNDROME CHRONIC BACK PAIN, 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 2 SON(S) - HEALTHY. SOCIAL HISTORY GENERAL: TOBACCO USE ARE YOU A:FORMER SMOKER HOW LONG HAS IT BEEN SINCE YOU LAST SMOKED?1-5 YEARS SMOKING CESSATION INFORMATION GIVEN05/10/2017 LATEX QUESTIONNAIRE LATEX ALLERGY : HAVE YOU EVER DEVELOPED ANY TYPE OF REACTION AFTER HANDLING LATEX PRODUCTS SUCH RUBBER GLOVES, CONDOMS, DIAPHRAGMS, BALLOONS, SOCKS, OR UNDERWEAR?NO LATEX ALLERGY : HAVE YOU EVER DEVELOPED ANY TYPE OF REACTION DURING OR AFTER DENTAL APPOINTMENT, VAGINAL/RECTAL EXAMINATION, SURGICAL PROCEDURE, OR ANY OTHER EXPOSURE?NO LATEX RISK : HAVE YOU EVER HAD ANY DIFFICULTY BREATHING OR HIVES AFTER EATING OR HANDLING ANY FRUITS, OR VEGETABLES; SUCH KIWI, BANANAS, STONE FRUITS, OR CHESTNUTSNO LATEX RISK : DO YOU HAVE A PREVIOUS PERSONAL HISTORY OF MORE THAN NINE SURGERIES, SPINA BIFIDA, OR REPEATED CATHERIZATIONS? NO LATEX RISK : ARE YOU FREQUENTLY EXPOSED TO LATEX PRODUCTS IN YOUR OCCUPATION?NO DATE ASKED : 05/30/2020 BMI CARE GOAL FOLLOW-UP ABOVE NORMAL BMI FOLLOW-UPDIETARY NEEDS EDUCATION ALCOHOL SCREENING DID YOU HAVE A DRINK CONTAINING ALCOHOL IN THE PAST YEAR?YES HOW OFTEN DID YOU HAVE SIX OR MORE DRINKS ON ONE OCCASION IN THE PAST YEAR?NEVER (0 POINTS) HOW MANY DRINKS DID YOU HAVE ON A TYPICAL DAY WHEN YOU WERE DRINKING IN THE PAST YEAR?1 OR 2 (0 POINTS) HOW OFTEN DID YOU HAVE A DRINK CONTAINING ALCOHOL IN THE PAST YEAR?MONTHLY OR LESS (1 POINT) POINTS1 INTERPRETATIONNEGATIVE RECREATIONAL DRUG USE DRUG USE?NO PATIENT DENIES ABUSE OR MISSUSED OF ANY MEDICATION. PATIENT DENIES USE OF ANY ILLEGAL SUBSTANCE INCLUDING MARIJUANA OR COCAINE. CAFFEINE CAFFEINE USE?YES HOW OFTEN AND HOW MUCH? 1-2 CUP SEXUAL HX HAD SEX IN THE LAST 12 MONTHS (VAGINAL, ORAL, OR ANAL)?YES WITHMEN ONLY PREVENTION STRATEGIES DISCUSSED:CONDOMS USE PROTECTION?NO LMP:08/29/2016 HAVE YOU EVER HAD AN STD?NO HIV / HEP-C SCREENING HIV TEST OFFERED TO PATIENT:YES DATE OFFERED:07/03/2016 TEST ACCEPTED:NO HEP-C TEST OFFERED TO PATIENT:YES DATE OFFERED:07/03/2016 REASON:PATIENT DECLINED TEST ACCEPTED:NO REASON:PATIENT DECLINED QUAKER [id number] NONE LANGUAGE LANGUAGES SPOKEN:TURKMEN EDUCATION LEVEL OF EDUCATION:NOT FINISHED COLLEGE LEARNING BARRIERS / SPECIAL NEEDS CHANGE FROM LAST VISIT?NO BARRIERS TO LEARNING?NO HEARING IMPAIRED?NO VISION IMPAIRED?YES COGNITIVELY IMPAIRED?NO :CORRECTIVE LENSES READINESS TO LEARN?YES LEARNING PREFERENCES?NO LEARNING CAPABILITIES PRESENT?YES EMOTIONAL BARRIERS?NO SPECIAL DEVICES?NO SYRUP MIXER NEEDED?NO DOMESTIC VIOLENCE DO YOU FEEL SAFE IN YOUR ENVIRONMENT?YES 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 MARITAL STATUS: SINGLE. OTHERS AT HOME: CHILD, OTHER NON-RELATIVE. PAIN CLINIC PFS, CLERGY, PUBLIC HEALTH REFERRALS WAS THE PROVIDER NOTIFIED OF ANY PERTINENT INFO?YES N/A HAS THE PATIENT BEEN EDUCATED REGARDING HIS/HER PLAN OF CARE?YES HAS THE PATIENT BEEN EDUCATED REGARDING PAIN, THE RISK FOR PAIN, THE IMPORTANCE OF EFFECTIVE PAIN MANAGEMENT, AND THE PAIN ASSESSMENT PROCESS?YES ADVANCE DIRECTIVE ADVANCE DIRECTIVE DISCUSSED WITH PATIENT:YES HCP VIGNESH HERRON [phone] HOSPITALIZATION/MAJOR DIAGNOSTIC PROCEDURE RELATED TO SURGERY REVIEW OF SYSTEMS GLAUCOMA: NOTHYROID DISEASE: NOHYPERTENSION: NOHEART DISEASE: NOLUNG DISEASE: NODIABETES: NOGI DISEASE: NO LIVER DISEASE: NO KIDNEY DISEASE: NOSTERIOD USE: NONEUROLOGICAL DISEASE: NOBACK PROBLEMS: YES, PAINEXTREMITIES: YES, PAINGENITOURINARY: NOBLEEDING DISORDER: NOASA CLASS: IIAIRWAY CLASS: II. VITAL SIGNS WT 189.8 LBS, HT 67 IN, BMI 29.72 INDEX, BP 131/98 MM HG, HR 95 /MIN, RR 18 /MIN, TEMP 98.7 F, OXYGEN SAT % 99, NA INITIALS AW 1500. EXAMINATION GENERAL EXAMINATION: THE PATIENT IS ALERT, ORIENTED TIMES THREE AND COOPERATIVE. HEART SHOWS REGULAR RHYTHM, NO MURMURS AND NO GALLOPS. LUNGS ARE CLEAR TO AUSCULTATION. TENDERNESS OVER THE RIGHT AND LEFT SACROCOCCYGEAL LIGAMENT. MRI OF THE LUMBOSACRAL SPINE DATED 08/20/2018 SHOWS SOME FACET ARTHROPTHY CHANGES. 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 10/2022 KRISTA SANTAMARIA 06/13/2020 09:40:27 AM - SECOND DOSE ORDERED, VERIFIED WITH KASIE ELLIOTT 06/13/2020 10:07:44 AM > 1ST DOSE OF 1 MG GIVEN 0933 2ND DOSE 1 MG GIVEN 0939 TOTAL OF 2 MG VERSED GIVEN MEDICATION: FENTANYL CITRATE 50MCG IV (ORDERED FOR 06/29/2020)LIANG NIELSEN 06/13/2020 8:54:33 AM > VERIFIED LOT # [id number] EXP. 02/2022 KRISTA SANTAMARIA 06/13/2020 09:40:35 AM - SECOND DOSE ORDERED, VERIFIED WITH KRISTA LR 06/13/2020 09:43:21 AM - THIRD DOSE ORDERED, VERIFIED WITH KASIE ELLIOTT 06/13/2020 10:08:39 AM > 1ST DOSE KASIE MORTON 06/13/2020 10:09:21 AM > 1ST DOSE OF 50 MCG GIVEN @0934 2ND DOSE OF 50 MCG GIVEN 0940 KASIE MORTON 06/13/2020 10:10:57 AM > 3RD DOSE OF 50 MCG GIVEN 0942 TOTAL GIVEN OF 150 MCG OXYGEN AT 2 LITERS PER NASAL CANNULA (ORDERED FOR 06/29/2020)LIANG NIELSEN 06/13/2020 9:37:48 AM > ON @ 0920 LIANG NIELSEN 06/13/2020 12:23:06 PM > OFF @ 0954 IV LACTATED RINGER'S AT KVO (ORDERED FOR 06/29/2020)LIANG NIELSEN 06/13/2020 8:53:29 AM > STARTED ON 2ND ATTEMPT. INFUSING WITHOUT REDNESS OR SWELLING LIANG NIELSEN 06/13/2020 12:23:38 PM > 400 ML INFUSED NOTES: 05/30/20 1610 NURSE REVIEWED PRE PROCEDURE INSTRUCTIONS WITH PATIENT, PATIENT ENDORSES UNDERSTANDING, PATIENT GIVEN COPY OF INSTRUCTIONS. WALDEMAR MEDELLIN CROWN POUNCER. OTHERS CLINICAL NOTES: I DISCUSSED ALTERNATIVES WITH MS. LAI. WE AGREE TO MOVE FORWARD WITH A SACROCOCCYGEAL LIGAMENT BLOCK WITH IV SEDATION DUE TO ANXIETY AND DISCOMFORT ASSOCIATED WITH THE PROCEDURE. THE PATIENT REPORTS UNDERSTANDING AND AGREES WITH THE PLAN. I, KRISTA SANTAMARIA, DOCUMENTED THE ABOVE INFORMATION ACTING A SCRIBE FOR DR. QUIROGA. I HAVE REVIEWED THE ABOVE DOCUMENT, WRITTEN BY KRISTA SANTAMAIRA, TRANSPORTATION LEAD, AND I VERIFY THAT IT IS ACCURATE. PROCEDURE CODES FA211 ESTABILISHED PATIENT [facility] FACILITY CHARGE [id number] OFFICE/OUTPATIENT VISIT EST DISPOSITION & COMMUNICATION FOLLOW UP ALREADY BOOKED (REASON: SACROCOCCYGEAL WITH IV SEDATION) ELECTRONICALLY SIGNED BY CATHY QUIROGA MD, MD ON 06/13/2020 AT 02:10 PM EST DISCLAIMER : THIS IS A VISIT SUMMARY EXTRACTED FROM THE [email or web address] CHART. IT IS NOT A COPY OF THE [employer] PROGRESS NOTE. MTDD
== END ==
LOC: M PAIN 15:15
PROVIDERS: ATTEND Anesthesiology
DX: M46.98 Unspecified inflammatory spondylopathy, sacral and sacrococcygeal region (principal); G43.909 Migraine, unspecified, not intractable, without status migrainosus; F41.9 Anxiety disorder, unspecified; M51.16 Intervertebral disc disorders with radiculopathy, lumbar region; Z87.891 Personal history of nicotine dependence; Z79.891 Long term (current) use of opiate analgesic; Z79.899 Other long term (current) drug therapy; Z91.048 Other nonmedicinal substance allergy status

== ENCOUNTER → 2020-06-08 | Outpatient (CLI) | payer OTHER | LOC: M LABSMTC 09:55 | PROVIDERS: ATTEND Anesthesiology | DX: Z20.828 Contact with and (suspected) exposure to other viral communicable diseases (principal) ==

== ENCOUNTER → 2020-06-13 | Outpatient (CLI) | payer OTHER ==
[~2020-06-13] MED LIST changes: +BUPIVACAINE HCL 0.25% 30ML VIAL As Ordered ONE; +ISOVUE-M 300 61% 15ML VIAL As Ordered ONE; +LIDOCAINE 1% SDV 30ML VIAL As Ordered ONE; +MIDAZOLAM INJ 2MG/2ML VIAL (J2250 PER 1MG) As Ordered ONE; +TRIAMCINOLONE ACETONIDE SUSP 40 MG/ML VIAL (J3301) As Ordered ONE; +fentaNYL 100 MCG/2 ML INJECTION (J3010) As Ordered ONE
--- NOTE | 2020-06-13 11:13 | REP ---
INDICATION: SACROCOCCYGEAL LIGAMENT BLOCK. Injection procedure for pain. COMPARISON: None. TECHNIQUE: Three views. 36.1 seconds of fluoroscopy time is reported. FINDINGS: A sequence of 3 last image hold fluoroscopically obtained spot radiographs document needle position and contrast injection associated with sacrococcygeal ligament block procedure. IMPRESSION: Procedural imaging. <Electronically signed by Iggy Langston > 06/13/20 [id number]
--- NOTE | 2020-06-16 03:36 | ECWPNPC ---
PATIENT NAME: MIKE LAI : 1980 GENDER: FEMALE VISIT DATE: 06/13/2020 DISCHARGE DATE: 06/13/20 1025 VISIT LOCKED DATE TIME: PHYSICIAN: CATHY QUIROGA MD PHYSICIAN PAGER NO: ACTIVE RESOURCE: CATHY QUIROGA MD REASON FOR APPOINTMENT 1. BILATERAL SACROCOCCYGEAL LIGAMENT INJECTION HISTORY OF PRESENT ILLNESS GENERAL: -. FALL RISK SCREENING: SCREENING :NO FALLS REPORTED IN THE LAST YEAR PAIN SCREENING: PATIENT HAS A COMPLAINT OF ACUTE OR CHRONIC PAIN :YES LOCATION OF PAIN:OTHER: LOW BACK, TAILBONE AND BACK OF BOTH LEGS INTENSITY OF PAIN (SCALE OF 1 TO 10):7 WHAT DOES YOUR PAIN FEEL LIKE:ACHING, INTERMITTENT, SORE PAIN IS INCREASED BY:OTHERS PEROID OF SITTING PAIN IS DECREASED BY:OTHERS STANDING NURSING NOTE: -. PAIN CENTER INTAKE QUESTIONS: DO YOU HAVE A HISTORY OF MRSA? :NO DO YOU TAKE A BLOOD THINNERS? :NO DO YOU HAVE ANY BLEEDING DISORDERS? :NO ANY NEW NUMBNESS OR WEAKNESS IN YOUR LEGS OR ARMS? :NO ANY PACEMAKER,DEFIBRILLATOR, OR DORSAL COLUMN STIMULATOR? :NO DO YOU HAVE ANY RASHES OR OPEN SORES? :YES RASH BOTH HANDS, BURN RIGHT INNER ARM ARE YOU ALLERGIC TO IV DYE? :NO ARE YOU DIABETIC? :NO ANY NEW PROBLEMS WITH YOUR MEDICATIONS? :NO HAVE YOU RECEIVED A VACCINE IN THE PAST 30 DAYS? :NO DO YOU PLAN TO RECEIVE A VACCINE IN THE NEXT 21 DAYS? :NO DO YOU TAKE ANY IMMUNOSUPPRESSIVE MEDICATIONS? :NO ANY HISTORY OF SEIZURES? :NO ANY HISTORY OF CARDIAC ISSUES OR EVENTS? :NO DO YOU HAVE SLEEP APNEA? :NO ANY RECENT HEAD INJURY? :NO DO YOU HAVE ANY NEW INFECTIONS? :NO IS THERE A CHANCE YOU COULD BE ? :NO ARE YOU BREAST FEEDING? :NO WHEN DID YOU LAST EAT? : 06/12 1730 WHEN DID YOU LAST DRINK? : 06/13 530 WHAT DID YOU LAST DRINK? : WATER NAME OF PERSON DRIVING YOU HOME? : -VIGNESH DO YOU HAVE ANY OTHER QUESTIONS OR CONCERNS? : - CURRENT MEDICATIONS TAKING EXCEDRIN MIGRAINE 250-250-65 MG TABLET 2 TABLETS NEEDED ORALLY EVERY 6 HRS, NOTES: NONE RECENT TAKING AZELASTINE HCL 0.1 % SOLUTION 1 PUFF IN EACH NOSTRIL NASALLY TWICE A DAY, NOTES: 06/12 0700 TAKING PHENTERMINE HCL 37.5 MG CAPSULE 12 ORALLY ONCE A DAY, NOTES: 06/12 0700 TAKING FAMOTIDINE 40 MG TABLET 1 TABLET AT BEDTIME ORALLY ONCE A DAY, NOTES: 06/12 2000 TAKING HYDROCODONE-ACETAMINOPHEN 7.5-325 MG TABLET 1 TABLET NEEDED ORALLY Q8H PRN MDD4, NOTES: 06/12 1800 DISCONTINUED FLUTICASONE PROPIONATE 50 MCG/ACT SUSPENSION 1 SPRAY IN EACH NOSTRIL NASALLY ONCE A DAY MEDICATION LIST REVIEWED AND RECONCILED WITH THE PATIENT PAST MEDICAL HISTORY TENDONITIS- RAUL KNEE MIGRAINES URINARY STRESS INCONTINENCE ANXIETY, ?PTSD HISTORY OF TOBACCO USE DYSPEPSIA GRANADOS BILATERAL CARPAL TUNNEL SYNDROME CHRONIC BACK PAIN, 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 2 SON(S) - HEALTHY. SOCIAL HISTORY GENERAL: TOBACCO USE ARE YOU A:FORMER SMOKER HOW LONG HAS IT BEEN SINCE YOU LAST SMOKED?1-5 YEARS SMOKING CESSATION INFORMATION GIVEN05/10/2017 LATEX QUESTIONNAIRE LATEX ALLERGY : HAVE YOU EVER DEVELOPED ANY TYPE OF REACTION AFTER HANDLING LATEX PRODUCTS SUCH RUBBER GLOVES, CONDOMS, DIAPHRAGMS, BALLOONS, SOCKS, OR UNDERWEAR?NO LATEX ALLERGY : HAVE YOU EVER DEVELOPED ANY TYPE OF REACTION DURING OR AFTER DENTAL APPOINTMENT, VAGINAL/RECTAL EXAMINATION, SURGICAL PROCEDURE, OR ANY OTHER EXPOSURE?NO DATE ASKED : 05/30/2020 LATEX RISK : HAVE YOU EVER HAD ANY DIFFICULTY BREATHING OR HIVES AFTER EATING OR HANDLING ANY FRUITS, OR VEGETABLES; SUCH KIWI, BANANAS, STONE FRUITS, OR CHESTNUTSNO LATEX RISK : DO YOU HAVE A PREVIOUS PERSONAL HISTORY OF MORE THAN NINE SURGERIES, SPINA BIFIDA, OR REPEATED CATHERIZATIONS? NO LATEX RISK : ARE YOU FREQUENTLY EXPOSED TO LATEX PRODUCTS IN YOUR OCCUPATION?NO BMI CARE GOAL FOLLOW-UP ABOVE NORMAL BMI FOLLOW-UPDIETARY NEEDS EDUCATION ALCOHOL SCREENING DID YOU HAVE A DRINK CONTAINING ALCOHOL IN THE PAST YEAR?YES HOW OFTEN DID YOU HAVE SIX OR MORE DRINKS ON ONE OCCASION IN THE PAST YEAR?NEVER (0 POINTS) HOW MANY DRINKS DID YOU HAVE ON A TYPICAL DAY WHEN YOU WERE DRINKING IN THE PAST YEAR?1 OR 2 (0 POINTS) HOW OFTEN DID YOU HAVE A DRINK CONTAINING ALCOHOL IN THE PAST YEAR?MONTHLY OR LESS (1 POINT) POINTS1 INTERPRETATIONNEGATIVE RECREATIONAL DRUG USE DRUG USE?NO PATIENT DENIES ABUSE OR MISSUSED OF ANY MEDICATION. PATIENT DENIES USE OF ANY ILLEGAL SUBSTANCE INCLUDING MARIJUANA OR COCAINE. CAFFEINE CAFFEINE USE?YES HOW OFTEN AND HOW MUCH? 1-2 CUP SEXUAL HX HAD SEX IN THE LAST 12 MONTHS (VAGINAL, ORAL, OR ANAL)?YES WITHMEN ONLY PREVENTION STRATEGIES DISCUSSED:CONDOMS USE PROTECTION?NO LMP:08/29/2016 HAVE YOU EVER HAD AN STD?NO HIV / HEP-C SCREENING HIV TEST OFFERED TO PATIENT:YES DATE OFFERED:07/03/2016 TEST ACCEPTED:NO HEP-C TEST OFFERED TO PATIENT:YES DATE OFFERED:07/03/2016 REASON:PATIENT DECLINED TEST ACCEPTED:NO REASON:PATIENT DECLINED ANABAPTIST [id number] NONE LANGUAGE LANGUAGES SPOKEN:YORUBA EDUCATION LEVEL OF EDUCATION:NOT FINISHED COLLEGE LEARNING BARRIERS / SPECIAL NEEDS CHANGE FROM LAST VISIT?NO BARRIERS TO LEARNING?NO HEARING IMPAIRED?NO VISION IMPAIRED?YES COGNITIVELY IMPAIRED?NO :CORRECTIVE LENSES READINESS TO LEARN?YES LEARNING PREFERENCES?NO LEARNING CAPABILITIES PRESENT?YES EMOTIONAL BARRIERS?NO SPECIAL DEVICES?NO MULTICUT LINE OPERATOR NEEDED?NO DOMESTIC VIOLENCE DO YOU FEEL SAFE IN YOUR ENVIRONMENT?YES OCCUPATION: [employer]. 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 MARITAL STATUS: SINGLE. OTHERS AT HOME: CHILD, OTHER NON-RELATIVE. PAIN CLINIC PFS, CLERGY, PUBLIC HEALTH REFERRALS WAS THE PROVIDER NOTIFIED OF ANY PERTINENT INFO?YES N/A HAS THE PATIENT BEEN EDUCATED REGARDING HIS/HER PLAN OF CARE?YES HAS THE PATIENT BEEN EDUCATED REGARDING PAIN, THE RISK FOR PAIN, THE IMPORTANCE OF EFFECTIVE PAIN MANAGEMENT, AND THE PAIN ASSESSMENT PROCESS?YES ADVANCE DIRECTIVE ADVANCE DIRECTIVE DISCUSSED WITH PATIENT:YES HCP VIGNESH HERRON [phone] HOSPITALIZATION/MAJOR DIAGNOSTIC PROCEDURE RELATED TO SURGERY VITAL SIGNS WT 187.0 LBS, HT 67 IN, BMI 29.29 INDEX, BP 155/106 MM HG, REPEAT BP 164/99 MM HG, HR 91 /MIN, RR 18 /MIN, TEMP 98.5 F, OXYGEN SAT % 99%, SAFE IN ENV? (Y/N) Y, NA INITIALS AW 0821, REVIEWED BY: Татьяна NIELSEN RN 0833. EXAMINATION GENERAL EXAMINATION: A HISTORY AND PHYSICAL EXAM ON THE PATIENT WAS DONE ON 05/30/2020 (DATE OF ORIGINAL ASSESSMENT) IN PREPARATION OF SURGERY/PROCEDURE. I HAVE NOW REASSESSED THIS PATIENT'S HEALTH STATUS AND PERFORMED AN UPDATED EXAM TODAY. ALL CHANGES IN THE PATIENT'S HISTORY, PHYSICAL EXAM, PRE-EXISTING CONDITONS, AND INDICATIONS/CONTRAINDICATIONS TO THE PLANNED PROCEDURE AND ANESTHESIA ARE DOCUMENTED AND EVALUATED BELOW. I ATTEST TO THE ADEQUACY AND APPROPRIATENESS OF MY ASSESSMENT, AND CONFIRM THE NECESSITY FOR THE PLANNED PROCEDURE. THE PATIENT IS ALERT, ORIENTED TIMES THREE AND COOPERATIVE. HEART SHOWS REGULAR RHYTHM, NO MURMURS AND NO GALLOPS. LUNGS ARE CLEAR TO AUSCULTATION. 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 10/2022 KRISTA SANTAMARIA 06/13/2020 09:40:27 AM - SECOND DOSE ORDERED, VERIFIED WITH KASIE ELLIOTT 06/13/2020 10:07:44 AM > 1ST DOSE OF 1 MG GIVEN 0933 2ND DOSE 1 MG GIVEN 39 TOTAL OF 2 MG VERSED GIVEN MEDICATION: FENTANYL CITRATE 50MCG IV LIANG NIELSEN 06/13/2020 8:54:33 AM > VERIFIED LOT # [id number] EXP. 02/2022 KRISTA SANTAMARIA 06/13/2020 09:40:35 AM - SECOND DOSE ORDERED, VERIFIED WITH KRISTA RL 06/13/2020 09:43:21 AM - THIRD DOSE ORDERED, VERIFIED WITH KASIE ELLIOTT 06/13/2020 10:08:39 AM > 1ST DOSE KASIE MORTON 06/13/2020 10:09:21 AM > 1ST DOSE OF 50 MCG GIVEN @0934 2ND DOSE OF 50 MCG GIVEN 0940 KASIE MORTON 06/13/2020 10:10:57 AM > 3RD DOSE OF 50 MCG GIVEN 0942 TOTAL GIVEN OF 150 MCG OXYGEN AT 2 LITERS PER NASAL CANNULALIANG NIELSEN 06/13/2020 9:37:48 AM > ON @ 0920 [facility] 06/13/2020 12:23:06 PM > OFF @ 0954 IV LACTATED [facility] 06/13/2020 8:53:29 AM > STARTED ON 2ND ATTEMPT. INFUSING WITHOUT REDNESS OR SWELLING [facility] 06/13/2020 12:23:38 PM > 400 ML INFUSED OTHERS NOTES: PAT DONE. KG. PROCEDURES PAIN NURSING RECORD PRE-PROCEDURE IV SITE LEFT UPPER ARM, IV STARTED # 22, IV STARTED BY: Татьяна NIELSEN RN, IV ATTEMPTS 2, PRE-PROCEDURE ORAL MEDICATIONS NONE PROCEDURE IN ROOM 0917, PHYSICIAN IN ROOM 0932, START 0940, FINISH 0953, PHYSICIAN OUT OF ROOM 0955, OUT OF ROOM 1003 VIA STRETCHER DUE TO CONSCIOUS SEDATION, STEROID KENALOG, O2 NC 2 LPM ON @ 0920, OFF @ 0954, ECG NORMAL SINUS, PATIENT SHIELDED YES, SAFETY STRAP YES, PREP CHLOROPREP BY Zaheer MORTON RN, IV INFUSED LACTATED RINGERS 400 ML INFUSED, DRESSING TEGADERM BY DR. QUIROGA [facility] 8:35:48 AM > 1. ALERT, ORIENTED [facility] 06/13/2020 9:38:51 AM > 1. ALERT, ORIENTED [facility] 06/13/2020 9:45:40 AM > 1. ALERT, ORIENTED RESP: [facility] 06/13/2020 8:35:54 AM > 1. REGULAR, NO DYSPNEA [facility] 06/13/2020 9:39:02 AM > 1. REGULAR, NO DYSPNEA [facility] 06/13/2020 9:45:46 AM > 1. REGULAR, NO DYSPNEA COLOR: [facility] 06/13/2020 8:35:57 AM > [facility]. [facility] 9:45:53 AM > 1. [facility] 06/13/2020 9:39:13 AM >1. WARM, DRY [facility] 06/13/2020 8:36:02 AM > 1. WARM, DRY [facility] 06/13/2020 9:45:58 AM > 1. WARM, DRY POSITION: TOM NIELSENITA 06/13/2020 9:2:01 AM > 1. PRONE TOM NIELSENITA 06/13/2020 9:39:54 AM > 1. PRONE [facility] 06/13/2020 9:46:08 AM > 1. PRONE VITALS: TOM NIELSENITA 06/13/2020 9:20:35 AM >// 152/95,73,18,100% [facility] 06/13/2020 9:33:27 AM > 158/99,74,16,100% DR. QUIROGA AWARE OF B/P [facility] 06/13/2020 9:38:34 AM > 164/106,90,16,100% [facility] 06/13/2020 9:43:14 AM >135/86, 78,15,99% [facility] 06/13/2020 9:48:43 AM > 147/96,74,16,97% [facility] 06/13/2020 9:53:11 AM > 135/89,76,16,98% [facility] 06/13/2020 9:58:25 AM > 142/94,73,16,95% [facility] 06/13/2020 10:00:25 AM >129/87,73,16,96% [facility] 06/13/2020 10:13:54 AM > 127/84,77,16,99% DISCHARGE: POST PAIN 0, DRESSING SITE DRY AND INTACT, IV DISCONTINUED, SITE CLEAR, CATHETER INTACT, GAIT STEADY DISCHARGED VIA W/C DUE TO IV SEDATION, TEACHING COMPLETED, PATIENT ACKNOWLEDGES UNDERSTANDING YES PRINTED POST PROCEDURE INSTRUCTIONS AND COVID SYMPTOM MONITORING INSTRUCTIONS GIVEN TO AND REVIEWED WITH PT. AND SHE VERBALIZED UNDERSTANDING. AD, PATIENT DISCHARGED AT 1023 PRE PROCEDURE DIAGNOSIS 1. INFLAMMATION OF THE SACROCOCCYGEAL LIGAMENT. 2. COCCYDYNIA POST PROCEDURE DIAGNOSIS 1. INFLAMMATION OF THE SACROCOCCYGEAL LIGAMENT. 2. COCCYDYNIA PROCEDURE INJECTION OF THE RIGHT AND LEFT SACROCOCCYGEAL LIGAMENT SURGEON DR. CATHY QUIROGA TUBER MACHINE OPERATOR NONE ANESTHESIA LOCAL PRE PROCEDURE NOTE THE PATIENT HAS HISTORY OF LOW BACK PAIN. I EVALUATED THE PATIENT AND REVIEWED THE CHART. THE PATIENT IS AWARE OF THE POTENTIAL COMPLICATIONS INLCUDING BUT NOT LIMITED TO, INCLUDE INFECTIONS, VISCERAL PUNCTURE, INCLUDING RECTAL PUNCTURE. I DISCUSSED ALTERNATIVES AND THE PATIENT EXPRESSED WILLINGNESS TO PROCEED. I DISCUSSED THAT THE USE OF STEROIDS MAY CONTRIBUTE TO IMMUNOSUPPRESSION OF THE PATIENT'S BODY AGAINST INFECTIONS SUCH COVID-19. THE PATIENT IS AWARE OF THE POTENTIAL COMPLICATIONS ASSOCIATED WITH THIS VIRUS, INCLUDING, BUT NOT LIMITED TO, . THE PATIENT DENIES UNEXPLAINABLE, WEIGHT LOSS, FEVER, CHILLS, OR CHANGES IN URINARY OR BOWEL CONTROL. THE PATIENT IS COVID-19 NEGATIVE DESCRIPTION OF PROCEDURE AFTER CONSENT WAS TAKEN, THE PATIENT WAS BROUGHT TO THE PROCEDURE ROOM AND PLACED IN THE PRONE POSITION. THE LUMBOSACRAL AREA WAS CLEANED WITH CHLORAPREP SOLUTION AND DRAPED ASEPTICALLY. THE PROCEDURE WAS DONE UNDER STERILE CONDITIONS. UNDER FLUOROSCOPIC GUIDANCE, THE TARGET WAS SELECTED AT THE BILATERAL SACROCOCCYGEAL LIGAMENT. I CONFIRMED AGAIN WITH EVERYONE IN THE ROOM THE LATERALITY OF THE TARGET AT 0938. LIDOCAINE WAS USED TO NUMB THE SKIN AND THE SUBCUTANEOUS TISSUE BELOW IT. A 25 GAUGE NEEDLE WAS ADVANCED UNTIL WE REACHED THE BILATERAL SACROCOCCYGEAL LIGAMENT. I DID AP AND LATERAL VIEWS. ISOVUE-M DYE 30%, 0.25 ML, WAS INJECTED SHOWING ADEQUATE SPREAD OF THE DYE. THEN A SOLUTION OF 30 ML OF BUPIVACAINE 0.125% WITH KENALOG 40 MG WAS INJECTED OVER THE AFFECTED STRUCTURE. THE MEDICATION WAS VERIFIED WITH THE NURSE. THERE WAS NO EVIDENCE OF BLOOD, PARESTHESIA OR CEREBROSPINAL FLUID. NO EVIDENCE OF VACUUM PHENOMENON OR VISCERAL PUNCTURE. THE PATIENT WAS SENT TO THE RECOVERY ROOM WHERE SHE WAS MOVING HER EXTREMITIES AND DOING WELL. THERE WERE NO COMPLICATIONS DURING THE PROCEDURE. EBL LESS THAN 5 ML. FLUOROSCOPY TIME WAS 36 SECONDS. THE PATIENT RECEIVED VERSED 2 MG AND FENTANYL 150 MCG IV IN DIVIDED DOSES. FACE TO FACE START TIME: 932 FACE TO FACE END TIME: 955 TOTAL FACE TO FACE TIME: 23 MINUTES POST PROCEDURE NOTE I AM LOOKING FOR LONG LASTING PAIN RELIEF WITH THIS INTERVENTION. INSTRUCTIONS WERE GIVEN. QUESTIONS WERE ANSWERED. THE PATIENT REPORTS UNDERSTANDING AND AGREES WITH THE PLAN. THERE WERE NO COMPLICATIONS DURING THE PROCEDURE. I, KRISTA SANTAMARIA, DOCUMENTED THE ABOVE INFORMATION ACTING A SCRIBE FOR DR. QUIROGA. I HAVE REVIEWED THE ABOVE DOCUMENT, WRITTEN BY LEROY CLEMENTE, AND I VERIFY THAT IT IS ACCURATE PROCEDURE CODES 97478 INJ TENDON SHEATH/LIGAMENT, MODIFIERS: 50 [id number] NEEDLE LOCALIZATION BY XRAY [id number] MOD SED SAME PHYS/QHP 5/>YRS 09418 MOD SED SAME PHYS/QHP EA DISPOSITION & COMMUNICATION FOLLOW UP FOLLOW UP WITH PORT PATROL OFFICER (REASON: POST SACROCOCCYGEAL LIGAMENT INJECTION ) ELECTRONICALLY SIGNED BY CATHY QUIROGA MD, ON 06/15/2020 AT 11:00 AM EST DISCLAIMER : THIS IS A VISIT SUMMARY EXTRACTED FROM THE [employer] CHART. IT IS NOT A COPY OF THE [employer] PROGRESS NOTE. STANLEYD
== END ==
LOC: M PAIN 08:00
PROVIDERS: ATTEND Anesthesiology
DX: M53.3 Sacrococcygeal disorders, not elsewhere classified (principal); M46.98 Unspecified inflammatory spondylopathy, sacral and sacrococcygeal region; G43.909 Migraine, unspecified, not intractable, without status migrainosus; F41.9 Anxiety disorder, unspecified; K75.81 Nonalcoholic steatohepatitis (NASH); G56.03 Carpal tunnel syndrome, bilateral upper limbs; Z87.891 Personal history of nicotine dependence; Z79.891 Long term (current) use of opiate analgesic; Z79.899 Other long term (current) drug therapy; Z91.048 Other nonmedicinal substance allergy status
CPT/HCPCS: 20550; 77002; 99152; 99153; J2250; J3010; J3301; Q9967

== ENCOUNTER → 2020-07-05 | Outpatient (CLI) | payer OTHER ==
[~2020-07-05] MED LIST changes: -BUPIVACAINE HCL 0.25% 30ML VIAL As Ordered ONE; -ISOVUE-M 300 61% 15ML VIAL As Ordered ONE; -LIDOCAINE 1% SDV 30ML VIAL As Ordered ONE; -MIDAZOLAM INJ 2MG/2ML VIAL (J2250 PER 1MG) As Ordered ONE; -TRIAMCINOLONE ACETONIDE SUSP 40 MG/ML VIAL (J3301) As Ordered ONE; -fentaNYL 100 MCG/2 ML INJECTION (J3010) As Ordered ONE
--- NOTE | 2020-07-07 02:26 | ECWPNPC ---
PATIENT NAME: MIKE LAI : 1980 GENDER: FEMALE VISIT DATE: 07/05/2020 DISCHARGE DATE: 07/05/20 1125 VISIT LOCKED DATE TIME: PHYSICIAN: SABIHA BERNARDO PHYSICIAN PAGER NO: ACTIVE RESOURCE: SABIHA BERNARDO REASON FOR APPOINTMENT 1. POST SACROCOCCYGEAL BLOCK WITH IV SEDATION HISTORY OF PRESENT ILLNESS FALL RISK SCREENING: SCREENING :NO FALLS REPORTED IN THE LAST YEAR PAIN SCREENING: PATIENT HAS A COMPLAINT OF ACUTE OR CHRONIC PAIN :YES LOCATION OF PAIN:OTHER: BOTH LEGS INTENSITY OF PAIN (SCALE OF 1 TO 10):8 WHAT DOES YOUR PAIN FEEL LIKE:ACHING, INTERMITTENT, SHOOTING, OTHER "TINGLING" IN BOTTOM OF BOTH FEET DURATION:CONSTANT MORNINGS ARE WORSE DUE TO ADDITIONAL BACK PAIN. PAIN IS INCREASED BY:ACTIVITIES, PROLONGED STANDING PAIN IS DECREASED BY:USE OF PAIN MEDICATIONS TREATMENT/MEDICATIONS USED TO MANAGE PAIN:OTC PAIN RELIEVERS, NSAIDS, TOPICAL CORTICOSTEROIDS, OPIOIDS, CORTICOSTEROIDS, PHYSICAL THERAPY PLAN/GOALS/TREATMENT/INTERVENTION/FOLLOW UP:SEE PLAN PAIN CENTER INTAKE QUESTIONS: DO YOU HAVE A HISTORY OF MRSA? :NO DO YOU TAKE A BLOOD THINNERS? :NO DO YOU HAVE ANY BLEEDING DISORDERS? :NO ANY NEW NUMBNESS OR WEAKNESS IN YOUR LEGS OR ARMS? :NO ANY PACEMAKER,DEFIBRILLATOR, OR DORSAL COLUMN STIMULATOR? :NO DO YOU HAVE ANY RASHES OR OPEN SORES? :NO ARE YOU ALLERGIC TO IV DYE? :NO ARE YOU DIABETIC? :NO ANY NEW PROBLEMS WITH YOUR MEDICATIONS? :NO HAVE YOU RECEIVED A VACCINE IN THE PAST 30 DAYS? :NO DO YOU PLAN TO RECEIVE A VACCINE IN THE NEXT 21 DAYS? :NO DO YOU NEED ANY PRESCRIPTION? :NO DO YOU TAKE ANY IMMUNOSUPPRESSIVE MEDICATIONS? :NO IS THERE A CHANCE YOU COULD BE ? :NO ARE YOU BREAST FEEDING? :NO GENERAL: HERE FOR POST PROCEDURE FOLLOW-UP. HAD BILATERAL COCCYGEAL LIGAMENT STEROID INJECTION WITH IV SEDATION ON 06/13/2020. REPORTING RESOLUTION OF LOW BACK PAIN SINCE THIS PROCEDURE. CHIEF AREA OF PAIN IS BILATERAL LEG PAIN. HAS BENEFITED FROM TRANSFORAMINAL STEROID INJECTIONS IN THE PAST. SHE IS AWARE WE HAVE TO DO ONE-SIDED A TIME. CURRENT MEDICATIONS TAKING EXCEDRIN MIGRAINE 250-250-65 MG TABLET 2 TABLETS NEEDED ORALLY EVERY 6 HRS, NOTES: NONE RECENT TAKING PANTOPRAZOLE SODIUM 20 MG TABLET DELAYED RELEASE 1 TABLET ORALLY ONCE A DAY TAKING AZELASTINE HCL 0.1 % SOLUTION 1 PUFF IN EACH NOSTRIL NASALLY TWICE A DAY TAKING HYDROCODONE-ACETAMINOPHEN 7.5-325 MG TABLET 1 TABLET NEEDED ORALLY Q6H PRN MDD4 MEDICATION LIST REVIEWED AND RECONCILED WITH THE PATIENT PAST MEDICAL HISTORY TENDONITIS- RAUL KNEE MIGRAINES URINARY STRESS INCONTINENCE ANXIETY, ?PTSD HISTORY OF TOBACCO USE DYSPEPSIA GRANADOS BILATERAL CARPAL TUNNEL SYNDROME CHRONIC BACK PAIN, 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 2 SON(S) - HEALTHY. SOCIAL HISTORY GENERAL: TOBACCO USE ARE YOU A:FORMER SMOKER HOW LONG HAS IT BEEN SINCE YOU LAST SMOKED?1-5 YEARS SMOKING CESSATION INFORMATION GIVEN05/10/2017 LATEX QUESTIONNAIRE LATEX ALLERGY : HAVE YOU EVER DEVELOPED ANY TYPE OF REACTION AFTER HANDLING LATEX PRODUCTS SUCH RUBBER GLOVES, CONDOMS, DIAPHRAGMS, BALLOONS, SOCKS, OR UNDERWEAR?NO LATEX ALLERGY : HAVE YOU EVER DEVELOPED ANY TYPE OF REACTION DURING OR AFTER DENTAL APPOINTMENT, VAGINAL/RECTAL EXAMINATION, SURGICAL PROCEDURE, OR ANY OTHER EXPOSURE?NO LATEX RISK : HAVE YOU EVER HAD ANY DIFFICULTY BREATHING OR HIVES AFTER EATING OR HANDLING ANY FRUITS, OR VEGETABLES; SUCH KIWI, BANANAS, STONE FRUITS, OR CHESTNUTSNO LATEX RISK : DO YOU HAVE A PREVIOUS PERSONAL HISTORY OF MORE THAN NINE SURGERIES, SPINA BIFIDA, OR REPEATED CATHERIZATIONS? NO LATEX RISK : ARE YOU FREQUENTLY EXPOSED TO LATEX PRODUCTS IN YOUR OCCUPATION?NO DATE ASKED : 07/05/2020 BMI CARE GOAL FOLLOW-UP ABOVE NORMAL BMI FOLLOW-UPDIETARY NEEDS EDUCATION ALCOHOL SCREENING DID YOU HAVE A DRINK CONTAINING ALCOHOL IN THE PAST YEAR?YES HOW OFTEN DID YOU HAVE SIX OR MORE DRINKS ON ONE OCCASION IN THE PAST YEAR?NEVER (0 POINTS) HOW MANY DRINKS DID YOU HAVE ON A TYPICAL DAY WHEN YOU WERE DRINKING IN THE PAST YEAR?1 OR 2 (0 POINTS) HOW OFTEN DID YOU HAVE A DRINK CONTAINING ALCOHOL IN THE PAST YEAR?MONTHLY OR LESS (1 POINT) POINTS1 INTERPRETATIONNEGATIVE RECREATIONAL DRUG USE DRUG USE?NO PATIENT DENIES ABUSE OR MISSUSED OF ANY MEDICATION. PATIENT DENIES USE OF ANY ILLEGAL SUBSTANCE INCLUDING MARIJUANA OR COCAINE. CAFFEINE CAFFEINE USE?YES HOW OFTEN AND HOW MUCH? 1-2 CUP SEXUAL HX HAD SEX IN THE LAST 12 MONTHS (VAGINAL, ORAL, OR ANAL)?YES WITHMEN ONLY PREVENTION STRATEGIES DISCUSSED:CONDOMS USE PROTECTION?NO LMP:08/29/2016 HAVE YOU EVER HAD AN STD?NO HIV / HEP-C SCREENING HIV TEST OFFERED TO PATIENT:YES DATE OFFERED:07/03/2016 TEST ACCEPTED:NO HEP-C TEST OFFERED TO PATIENT:YES DATE OFFERED:07/03/2016 REASON:PATIENT DECLINED TEST ACCEPTED:NO REASON:PATIENT DECLINED MOS[place] [id number] NONE LANGUAGE LANGUAGES SPOKEN:S[place] EDUCATION LEVEL OF EDUCATION:NOT FINISHED COLLEGE LEARNING BARRIERS / SPECIAL NEEDS CHANGE FROM LAST VISIT?NO BARRIERS TO LEARNING?NO HEARING IMPAIRED?NO VISION IMPAIRED?YES COGNITIVELY IMPAIRED?NO :CORRECTIVE LENSES READINESS TO LEARN?YES LEARNING PREFERENCES?NO LEARNING CAPABILITIES PRESENT?YES EMOTIONAL BARRIERS?NO SPECIAL DEVICES?NO AUTO MECHANICS TEACHER NEEDED?NO DOMESTIC VIOLENCE DO YOU FEEL SAFE IN YOUR ENVIRONMENT?YES 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 MARITAL STATUS: SINGLE. OTHERS AT HOME: CHILD, OTHER NON-RELATIVE. PAIN CLINIC PFS, CLERGY, PUBLIC HEALTH REFERRALS WAS THE PROVIDER NOTIFIED OF ANY PERTINENT INFO?YES N/A HAS THE PATIENT BEEN EDUCATED REGARDING HIS/HER PLAN OF CARE?YES HAS THE PATIENT BEEN EDUCATED REGARDING PAIN, THE RISK FOR PAIN, THE IMPORTANCE OF EFFECTIVE PAIN MANAGEMENT, AND THE PAIN ASSESSMENT PROCESS?YES ADVANCE DIRECTIVE ADVANCE DIRECTIVE DISCUSSED WITH PATIENT:YES HCP VIGNESH HERRON [phone] HOSPITALIZATION/MAJOR DIAGNOSTIC PROCEDURE RELATED TO SURGERY REVIEW OF SYSTEMS CONSTITUTIONAL: ANY RECENT FEVER NO . CHILLS NO . WEIGHT CHANGE OF UNKNOWN REASONS NO . GASTROENTEROLOGY: NEW UNEXPLAINABLE CHANGES IN BOWEL CONTROL NO . CONSTIPATION NO . GENITOURINARY: ANY NEW CHANGE IN BLADDER CONTROL? NO . NEUROLOGY: NEW ONSET DIZZINESS OR NEUROLOGICAL CHANGES NOT MENTIONED NO . NEW NUMBNESS OR PAIN PATTERNS NOT MENTIONED AND PERTINENT TO TODAY'S VISIT NO . CARDIOLOGY: NEW CHEST PRESSURE NO . NEW CHEST PAIN NO . RESPIRATORY: UNEXPLAINABLE COUGH NO . NEW SHORTNESS OF BREATH NO . VITAL SIGNS WT 192.8 LBS, HT 67 IN, BMI 30.19 INDEX, BP 170/104.LA, REPEAT BP 155/92.RA, HR 66 /MIN, RR 18 /MIN, TEMP 98.1 F, OXYGEN SAT % 98%, SAFE IN ENV? (Y/N) YES, NA INITIALS KS 10:14, REVIEWED BY: BOB JOHNSON RN. EXAMINATION GENERAL EXAMINATION: GENERAL AWAKE,ALERT ,PLEASANT . PSYCH AFFECT NORMAL . LUNGS: LUNG RICO ARE CLEAR TO AUSCULTATION BILATERALLY. GOOD MOVEMENT OF AIR . HEART: S1, S2 IN A REGULAR RATE AND RHYTHM. NO SIGNIFICANT MURMURS, RUBS OR GALLOPS NOTED . MUSCULOSKELETAL:MILD WEAKNESS OVER BILAT. LOWER EXTREMITIES. LUMBAR:PALPATION: + FOR PAIN OVER L/S SPINE. + FOR PAIN OVER L/S PARASPINALS POSITIVE MODIFIED SLE AT 45 DEGREES BILAT.. NEUROLOGIC EXAM: NORMAL SENSATION LIGHT TOUCH BILAT. LOWER EXTREMITIES. DIAGNOSTIC TESTS REVIEWED MRI L/S SPINE-08/20/18. ASSESSMENTS OTHER CHRONIC PAIN - G89.29 (PRIMARY) INTERVERTEBRAL DISC DISORDERS WITH RADICULOPATHY, LUMBOSACRAL REGION - M51.17 TREATMENT OTHER CHRONIC PAIN CONTINUE HYDROCODONE-ACETAMINOPHEN TABLET, 7.5-325 MG, 1 TABLET NEEDED, ORALLY, Q6H PRN MDD4 PAIN PROCEDURE LOGDATE OF [id number]:BILATERAL SACROCOCCYGEAL LIGAMENT INJECTIONAMOUNT OF PRE SEDATEIV SEDATION: 2MG VERSED IV; 150 MCG FENTANTYL IVRESULT:MARKED REDUCTION IN SACRAL PAIN CONTINUES TODAY NOTES: RIGHT L4-5, L5-S1 TRANSFORAMINAL STEROID INJECTION WITH IV SEDATION , ISTOP REGISTRY REVIEWED AND DEMONSTRATES COMPLLIANCE. BRINGS IN MEDICATIONS WHICH IS APPROPRIATE FOR WHAT WAS DISPENSED. RECENT URINE TOXICOLOGY REVIEWED. NO UNAUTHORIZED MEDICATIONS. NO ILLICIT SUBSTANCES AND PRESCRIBED MEDICATIONS WERE PRESENT. , RISKS OF NARCOTIC/OPIOD MEDICATIONS INCLUDES BUT IS NOT LIMITED TO RISK OF DEPENDANCE/DEVELOPMENT OF ADDICTION, MOOD DISTURBANCE AND DEPRESSION, OSTEOPOROSIS, HORMONAL AND LABIDAL CHANGES, RESPIRATORY DEPRESSION AND . PATIENT IS ADVISED NOT TO DRIVE OR DRINK ALCOHOL WHILE ON THESE MEDICATIONS TRANSFORAMINAL STEROID INJECTION INFORMATION PRINTED AND REVIEWED WITH PATIENT. PATIENT VERBLAIZES UNDERSTANDING OF PROCEDURE AND OF PRE PROCEDURE INSTRUCTIONS REVIEWED. 07/05/2020 Laure GARCIA RN. PROCEDURE CODES FA211 ESTABILISHED PATIENT [facility] CHARGE DISPOSITION & COMMUNICATION FOLLOW UP SCHEDULED POST PROCEDURE FOLLOW-UP WITH ME 5-7 DAYS POST PROCEDURE/IV PRE SEDATE APT 5-7 DAYS POST PROCEDURE (REASON: RIGHT L4-5, L5-S1 TRANSFORAMINAL STEROID INJECTION WITH IV SEDATION) ELECTRONICALLY SIGNED BY TOBIAS KABA ON 07/06/2020 AT 10:25 AM EST DISCLAIMER : THIS IS A VISIT SUMMARY EXTRACTED FROM THE [employer] CHART. IT IS NOT A COPY OF THE [employer] PROGRESS NOTE. DOROTHEA
== END ==
LOC: M PAIN 10:30
PROVIDERS: ATTEND Nurse Practitioner Family
DX: M51.17 Intervertebral disc disorders with radiculopathy, lumbosacral region (principal); G89.29 Other chronic pain; G43.909 Migraine, unspecified, not intractable, without status migrainosus; Z86.59 Personal history of other mental and behavioral disorders; Z87.891 Personal history of nicotine dependence; Z88.8 Allergy status to other drugs, medicaments and biological substances; Z91.09 Other allergy status, other than to drugs and biological substances; Z79.899 Other long term (current) drug therapy

== ENCOUNTER → 2020-07-18 | Outpatient (REF) | payer OTHER ==
[2020-07-18 15:15] LABS: BLOOD UREA NITROGEN 14 MG/DL (7-18); CALCIUM LEVEL 9.9 MG/DL (8.5-10.1); CARBON DIOXIDE LEVEL 30 MEQ/L (21-32); CHLORIDE LEVEL 101 MEQ/L (98-107); GLOMERULAR FILTRATION RATE > 60.0 (>58); GLUCOSE, FASTING 82 MG/DL (70-100); POTASSIUM SERUM 3.5 MEQ/L (3.5-5.1); SODIUM LEVEL 136 MEQ/L (136-145)
[2020-07-18 16:20] LABS: MALB URINE SIEMENS 9.1 MG/L; MAU/CREAT RATIO 4.7 MCG/MG (0.0-30.0)
== END ==
LOC: M PLALAB 11:48
PROVIDERS: ATTEND Family Medicine
DX: I10 Essential (primary) hypertension (principal)

== ENCOUNTER → 2020-07-21 | Outpatient (CLI) | payer OTHER | LOC: M LABSMTC 13:11 | PROVIDERS: ATTEND Anesthesiology | DX: Z20.822 Contact with and (suspected) exposure to COVID-19 (principal) ==

== ENCOUNTER → 2020-07-22 | Outpatient (CLI) | payer OTHER ==
--- NOTE | 2020-07-23 00:49 | ECWPNPC ---
PATIENT NAME: MIKE LAI : 1980 GENDER: FEMALE VISIT DATE: 07/22/2020 DISCHARGE DATE: 07/22/20 1024 VISIT LOCKED DATE TIME: PHYSICIAN: CATHY QUIROGA MD PHYSICIAN PAGER NO: ACTIVE RESOURCE: CATHY QUIROGA MD REASON FOR APPOINTMENT 1. PRE SEDATE FOR BILATERAL L4-5 TRANSFORAMINAL STEROID INJECTION WITH IV SEDATION HISTORY OF PRESENT ILLNESS GENERAL: 40-YEAR-OLD FEMALE PATIENT WITH A HISTORY OF CHRONIC LOW BACK AND BILATERAL LEG PAIN. THE PATIENT DESCRIBES THE PAIN CONTINUOUS, SHOOTING AND TENDER WITH A PAIN SCORE RANGING FROM 6-9/10 AT THE BACK. SHE HAS RECEIVED INJECTIONS IN THE PAST WITH GOOD PAIN RELIEF AND SHE WOULD LIKE TO PERFORM THIS INJECTION AGAIN. THIS IS AFFECTING HER ABILITY TO DO ACTIVITIES SUCH CLEANING HER HOUSE AND WALKING AROUND. FALL RISK SCREENING: SCREENING :NO FALLS REPORTED IN THE LAST YEAR PAIN SCREENING: PATIENT HAS A COMPLAINT OF ACUTE OR CHRONIC PAIN :YES LOCATION OF PAIN:LOW BACK WHAT DOES YOUR PAIN FEEL LIKE:CONTINOUS, SHOOTING, TENDER DURATION:CONTINOUS PAIN IS INCREASED BY:ACTIVITIES NURSING NOTE: -. PAIN CENTER INTAKE QUESTIONS: DO YOU HAVE A HISTORY OF MRSA? :NO DO YOU TAKE A BLOOD THINNERS? :NO DO YOU HAVE ANY BLEEDING DISORDERS? :NO ANY NEW NUMBNESS OR WEAKNESS IN YOUR LEGS OR ARMS? :NO ANY PACEMAKER,DEFIBRILLATOR, OR DORSAL COLUMN STIMULATOR? :NO DO YOU HAVE ANY RASHES OR OPEN SORES? :NO ARE YOU ALLERGIC TO IV DYE? :NO ARE YOU DIABETIC? :NO ANY NEW PROBLEMS WITH YOUR MEDICATIONS? :NO HAVE YOU RECEIVED A VACCINE IN THE PAST 30 DAYS? :NO DO YOU PLAN TO RECEIVE A VACCINE IN THE NEXT 21 DAYS? :NO DO YOU TAKE ANY IMMUNOSUPPRESSIVE MEDICATIONS? :NO ANY HISTORY OF SEIZURES? :NO ANY HISTORY OF CARDIAC ISSUES OR EVENTS? :NO DO YOU HAVE SLEEP APNEA? :NO ANY RECENT HEAD INJURY? :NO DO YOU HAVE ANY NEW INFECTIONS? :NO IS THERE A CHANCE YOU COULD BE ? :NO ARE YOU BREAST FEEDING? :NO WHEN DID YOU LAST EAT? : - WHEN DID YOU LAST DRINK? : - WHAT DID YOU LAST DRINK? : - NAME OF PERSON DRIVING YOU HOME? : - DO YOU HAVE ANY OTHER QUESTIONS OR CONCERNS? : - CURRENT MEDICATIONS TAKING EXCEDRIN MIGRAINE 250-250-65 MG TABLET 2 TABLETS NEEDED ORALLY EVERY 6 HRS, NOTES: NONE RECENT TAKING PANTOPRAZOLE SODIUM 20 MG TABLET DELAYED RELEASE 1 TABLET ORALLY ONCE A DAY TAKING AZELASTINE HCL 0.1 % SOLUTION 1 PUFF IN EACH NOSTRIL NASALLY TWICE A DAY TAKING HYDROCODONE-ACETAMINOPHEN 7.5-325 MG TABLET 1 TABLET NEEDED ORALLY Q6H PRN MDD4 TAKING LISINOPRIL-HYDROCHLOROTHIAZIDE 10-12.5 MG TABLET 1 TABLET ORALLY ONCE A DAY MEDICATION LIST REVIEWED AND RECONCILED WITH THE PATIENT PAST MEDICAL HISTORY TENDONITIS- RAUL KNEE MIGRAINES URINARY STRESS INCONTINENCE ANXIETY, ?PTSD HISTORY OF TOBACCO USE DYSPEPSIA GRANADOS BILATERAL CARPAL TUNNEL SYNDROME CHRONIC BACK PAIN, 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 2 SON(S) - HEALTHY. DENIES KNOWN FAMILY HISTORY OF BREAST CANCER, OVARIAN CANCER, TUBAL, PERITONEAL, OR COLON CANCER. HOSPITALIZATION/MAJOR DIAGNOSTIC PROCEDURE RELATED TO SURGERY REVIEW OF SYSTEMS GLAUCOMA: NOTHYROID DISEASE: NOHYPERTENSION: YESHEART DISEASE: NOLUNG DISEASE: NODIABETES: NOGI DISEASE: NO LIVER DISEASE: NO KIDNEY DISEASE: NOSTERIOD USE: NONEUROLOGICAL DISEASE: NOBACK PROBLEMS: YES, PAINEXTREMITIES: YES, PAINGENITOURINARY: NOBLEEDING DISORDER: NOASA CLASS: [id number] CLASS: II. VITAL SIGNS WT 193 LBS, HT 67 IN, BMI 30.22 INDEX, BP 148/82 MM HG, HR 88 /MIN, RR 18 /MIN, TEMP 98.6 F, OXYGEN SAT % 98, SAFE IN ENV? (Y/N) Y, REVIEWED BY: KG. EXAMINATION GENERAL EXAMINATION: THE PATIENT IS ALERT, ORIENTED TIMES THREE AND COOPERATIVE. LUNGS ARE CLEAR TO AUSCULTATION. HEART SHOWS REGULAR RHYTHM, NO MURMURS AND NO GALLOPS. SHE IS LIMPING MAINLY FROM HER RIGHT LEG WHICH IS WEAKER THAN THE LEFT LEG ON FLEXION AND EXTENSION. STRAIGHT LEG RAISE IS POSITIVE FOR RADICULOPATHY ON THE RIGHT AT 40 DEGREES AND ON THE LEFT 30 DEGREES. LUMBAR SPINE MRI DATED 08/20/2018 SHOWS BULGING DISC AT L4-L5 AND L5-S1 DOING COMPRESSIONS OVER THE NERVES. ASSESSMENTS SPONDYLOSIS WITHOUT MYELOPATHY OR RADICULOPATHY, LUMBAR REGION - M47.816 (PRIMARY) SPONDYLOSIS WITHOUT MYELOPATHY OR RADICULOPATHY, LUMBOSACRAL REGION - M47.817 TREATMENT SPONDYLOSIS WITHOUT MYELOPATHY OR RADICULOPATHY, LUMBAR REGION MEDICATION: VERSED 1MG IV (MIDAZOLAM) (ORDERED FOR 08/22/2020) MEDICATION: FENTANYL CITRATE 50MCG IV (ORDERED FOR 08/22/2020) OXYGEN AT 2 LITERS PER NASAL CANNULA (ORDERED FOR 08/22/2020) IV LACTATED RINGER'S AT KVO (ORDERED FOR 08/22/2020) CLINICAL NOTES: I DISCUSSED ALTERNATIVES WITH MS. LAI. THE PATIENT HAS PAIN IN THE BACK AND IN BOTH LEGS. WE HAVE DONE TRANSFORAMINAL EPIDURALS ON THE LEFT AND ON THE RIGHT IN THE PAST SO WE AGREE ON DOING A BILATERAL TRANSFORAMINAL EPIDURAL STEROID INJECTION L4-L5 WITH IV SEDATION DUE TO ANXIETY AND DISCOMFORT ASSOCIATED WITH THE PROCEDURE. THE PATIENT REPORTS UNDERSTANDING AND AGREE WITH THE PLAN. I, KRISTA SANTAMARIA, DOCUMENTED THE ABOVE INFORMATION ACTING A SCRIBE FOR DR. QUIROGA. I HAVE REVIEWED THE ABOVE DOCUMENT, WRITTEN BY KRISTA SANTAMARIA, COAGULATING BATH OPERATOR, AND I VERIFY THAT IT IS ACCURATE. PROCEDURE CODES FA211 ESTABILISHED PATIENT [facility] CHARGE [id number] OFFICE/OUTPATIENT VISIT EST DISPOSITION & COMMUNICATION FOLLOW UP OKAY TO BOOK (REASON: BILATERAL TRANSFORAMINAL EPIDURAL STEROID INJECTION L4-L5, L5-S1) ELECTRONICALLY SIGNED BY CATHY QUIROGA MD, MD ON 07/22/2020 AT 02:07 PM EST DISCLAIMER : THIS IS A VISIT SUMMARY EXTRACTED FROM THE [employer] CHART. IT IS NOT A COPY OF THE [employer] PROGRESS NOTE. MTDTre
== END ==
LOC: M PAIN 10:00
PROVIDERS: ATTEND Anesthesiology
DX: M47.816 Spondylosis without myelopathy or radiculopathy, lumbar region (principal); M47.817 Spondylosis without myelopathy or radiculopathy, lumbosacral region; G43.909 Migraine, unspecified, not intractable, without status migrainosus; F41.9 Anxiety disorder, unspecified; N39.3 Stress incontinence (female) (male); F43.10 Post-traumatic stress disorder, unspecified; K75.81 Nonalcoholic steatohepatitis (NASH); Z79.891 Long term (current) use of opiate analgesic; Z79.899 Other long term (current) drug therapy; Z91.048 Other nonmedicinal substance allergy status

== ENCOUNTER → 2020-07-26 | Outpatient (CLI) | payer OTHER ==
[~2020-07-26] MED LIST changes: +BUPIVACAINE HCL 0.25% 30ML VIAL As Ordered ONE; +ISOVUE-M 300 61% 15ML VIAL As Ordered ONE; +LIDOCAINE 1% SDV 30ML VIAL As Ordered ONE; +MIDAZOLAM INJ 2MG/2ML VIAL (J2250 PER 1MG) As Ordered ONE; +dexameTHASONE 10MG/1ML VIAL PRES.FREE (J1100 PER 1MG) As Ordered ONE; +fentaNYL 100 MCG/2 ML INJECTION (J3010) As Ordered ONE
--- NOTE | 2020-07-26 10:39 | REP ---
INDICATION: BILATERAL TRANSFORAMINAL EEPIDURAL STEROID INJECTION. COMPARISON: None. TECHNIQUE: Multiple C-arm views lower lumbar spine performed. FINDINGS: Needle is seen at the L4 level. Contrast is injected. IMPRESSION: 65 seconds fluoroscopy time utilized. <Electronically signed by Marcellus Mcintosh > 07/26/20 0957
--- NOTE | 2020-07-28 01:20 | ECWPNPC ---
PATIENT NAME: MIKE LAI : 1980 GENDER: FEMALE VISIT DATE: 07/26/2020 DISCHARGE DATE: 07/26/20 1056 VISIT LOCKED DATE TIME: PHYSICIAN: CATHY QUIROGA MD PHYSICIAN PAGER NO: ACTIVE RESOURCE: CATYH QUIROGA MD REASON FOR APPOINTMENT 1. BILATERAL TRANSFORAMINAL STEROID INJECTION L4-5, L5-S1 HISTORY OF PRESENT ILLNESS GENERAL: -. FALL RISK SCREENING: SCREENING :NO FALLS REPORTED IN THE LAST YEAR PAIN SCREENING: PATIENT HAS A COMPLAINT OF ACUTE OR CHRONIC PAIN :YES LOCATION OF PAIN:MID BACK, LOW BACK, LEG(S) INTENSITY OF PAIN (SCALE OF 1 TO 10):8 WHAT DOES YOUR PAIN FEEL LIKE:ACHING, CONTINOUS, SHARP, STABBING, TENDER, SORE, SHOOTING DURATION:CONTINOUS, CONSTANT PAIN IS INCREASED BY:ACTIVITIES PAIN IS DECREASED BY:USE OF PAIN MEDICATIONS, OTHERS HEAT NURSING NOTE: -. PAIN CENTER INTAKE QUESTIONS: DO YOU HAVE A HISTORY OF MRSA? :NO DO YOU TAKE A BLOOD THINNERS? :NO DO YOU HAVE ANY BLEEDING DISORDERS? :NO ANY NEW NUMBNESS OR WEAKNESS IN YOUR LEGS OR ARMS? :NO ANY PACEMAKER,DEFIBRILLATOR, OR DORSAL COLUMN STIMULATOR? :NO DO YOU HAVE ANY RASHES OR OPEN SORES? :NO ARE YOU ALLERGIC TO IV DYE? :NO ARE YOU DIABETIC? :NO ANY NEW PROBLEMS WITH YOUR MEDICATIONS? :NO HAVE YOU RECEIVED A VACCINE IN THE PAST 30 DAYS? :NO DO YOU PLAN TO RECEIVE A VACCINE IN THE NEXT 21 DAYS? :NO DO YOU TAKE ANY IMMUNOSUPPRESSIVE MEDICATIONS? :NO ANY HISTORY OF SEIZURES? :NO ANY HISTORY OF CARDIAC ISSUES OR EVENTS? :NO DO YOU HAVE SLEEP APNEA? :NO ANY RECENT HEAD INJURY? :NO DO YOU HAVE ANY NEW INFECTIONS? :NO IS THERE A CHANCE YOU COULD BE ? :NO ARE YOU BREAST FEEDING? :NO WHEN DID YOU LAST EAT? : -LAST NIGHT AT 10 PM WHEN DID YOU LAST DRINK? : 0400 THIS MORNING WHAT DID YOU LAST DRINK? : -WATER NAME OF PERSON DRIVING YOU HOME? : -VIGNESH DO YOU HAVE ANY OTHER QUESTIONS OR CONCERNS? : - CURRENT MEDICATIONS UNKNOWN EXCEDRIN MIGRAINE 250-250-65 MG TABLET 2 TABLETS NEEDED ORALLY EVERY 6 HRS, NOTES: NONE RECENT UNKNOWN PANTOPRAZOLE SODIUM 20 MG TABLET DELAYED RELEASE 1 TABLET ORALLY ONCE A DAY UNKNOWN AZELASTINE HCL 0.1 % SOLUTION 1 PUFF IN EACH NOSTRIL NASALLY TWICE A DAY UNKNOWN HYDROCODONE-ACETAMINOPHEN 7.5-325 MG TABLET 1 TABLET NEEDED ORALLY Q6H PRN MDD4 UNKNOWN LISINOPRIL-HYDROCHLOROTHIAZIDE 10-12.5 MG TABLET 1 TABLET ORALLY ONCE A DAY PAST MEDICAL HISTORY TENDONITIS- RAUL KNEE MIGRAINES URINARY STRESS INCONTINENCE ANXIETY, ?PTSD HISTORY OF TOBACCO USE DYSPEPSIA GRANADOS BILATERAL CARPAL TUNNEL SYNDROME CHRONIC BACK PAIN, 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 2 SON(S) - HEALTHY. DENIES KNOWN FAMILY HISTORY OF BREAST CANCER, OVARIAN CANCER, TUBAL, PERITONEAL, OR COLON CANCER. SOCIAL HISTORY GENERAL: TOBACCO USE ARE YOU A:FORMER SMOKER HOW LONG HAS IT BEEN SINCE YOU LAST SMOKED?1-5 YEARS SMOKING CESSATION INFORMATION GIVEN05/10/2017 LATEX QUESTIONNAIRE LATEX ALLERGY : HAVE YOU EVER DEVELOPED ANY TYPE OF REACTION AFTER HANDLING LATEX PRODUCTS SUCH RUBBER GLOVES, CONDOMS, DIAPHRAGMS, BALLOONS, SOCKS, OR UNDERWEAR?NO LATEX ALLERGY : HAVE YOU EVER DEVELOPED ANY TYPE OF REACTION DURING OR AFTER DENTAL APPOINTMENT, VAGINAL/RECTAL EXAMINATION, SURGICAL PROCEDURE, OR ANY OTHER EXPOSURE?NO LATEX RISK : HAVE YOU EVER HAD ANY DIFFICULTY BREATHING OR HIVES AFTER EATING OR HANDLING ANY FRUITS, OR VEGETABLES; SUCH KIWI, BANANAS, STONE FRUITS, OR CHESTNUTSNO LATEX RISK : DO YOU HAVE A PREVIOUS PERSONAL HISTORY OF MORE THAN NINE SURGERIES, SPINA BIFIDA, OR REPEATED CATHERIZATIONS? NO LATEX RISK : ARE YOU FREQUENTLY EXPOSED TO LATEX PRODUCTS IN YOUR OCCUPATION?NO DATE ASKED : 07/25/2020 BMI CARE GOAL FOLLOW-UP ABOVE NORMAL BMI FOLLOW-UPDIETARY NEEDS EDUCATION ALCOHOL SCREENING DID YOU HAVE A DRINK CONTAINING ALCOHOL IN THE PAST YEAR?YES HOW OFTEN DID YOU HAVE SIX OR MORE DRINKS ON ONE OCCASION IN THE PAST YEAR?NEVER (0 POINTS) HOW MANY DRINKS DID YOU HAVE ON A TYPICAL DAY WHEN YOU WERE DRINKING IN THE PAST YEAR?1 OR 2 (0 POINTS) HOW OFTEN DID YOU HAVE A DRINK CONTAINING ALCOHOL IN THE PAST YEAR?MONTHLY OR LESS (1 POINT) POINTS1 INTERPRETATIONNEGATIVE RECREATIONAL DRUG USE DRUG USE?NO PATIENT DENIES ABUSE OR MISSUSED OF ANY MEDICATION. PATIENT DENIES USE OF ANY ILLEGAL SUBSTANCE INCLUDING MARIJUANA OR COCAINE. CAFFEINE CAFFEINE USE?YES HOW OFTEN AND HOW MUCH? 1-2 CUP SEXUAL HX HAD SEX IN THE LAST 12 MONTHS (VAGINAL, ORAL, OR ANAL)?YES WITHMEN ONLY PREVENTION STRATEGIES DISCUSSED:CONDOMS USE PROTECTION?NO LMP:08/29/2016 HAVE YOU EVER HAD AN STD?NO HIV / HEP-C SCREENING HIV TEST OFFERED TO PATIENT:YES DATE OFFERED:07/03/2016 TEST ACCEPTED:NO HEP-C TEST OFFERED TO PATIENT:YES DATE OFFERED:07/03/2016 REASON:PATIENT DECLINED TEST ACCEPTED:NO REASON:PATIENT DECLINED PENTECOSTALISM [id number] NONE LANGUAGE LANGUAGES SPOKEN:VINCENTIAN EDUCATION LEVEL OF EDUCATION:NOT FINISHED COLLEGE LEARNING BARRIERS / SPECIAL NEEDS CHANGE FROM LAST VISIT?NO BARRIERS TO LEARNING?NO HEARING IMPAIRED?NO VISION IMPAIRED?YES :CORRECTIVE LENSES COGNITIVELY IMPAIRED?NO READINESS TO LEARN?YES LEARNING PREFERENCES?NO LEARNING CAPABILITIES PRESENT?YES EMOTIONAL BARRIERS?NO SPECIAL DEVICES?NO VOICE OVER ANNOUNCER NEEDED?NO DOMESTIC VIOLENCE DO YOU FEEL SAFE IN YOUR ENVIRONMENT?YES 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 MARITAL STATUS: SINGLE. OTHERS AT HOME: CHILD, OTHER NON-RELATIVE. - WAS THE PROVIDER NOTIFIED OF ANY PERTINENT INFO?YES N/A HAS THE PATIENT BEEN EDUCATED REGARDING HIS/HER PLAN OF CARE?YES HAS THE PATIENT BEEN EDUCATED REGARDING PAIN, THE RISK FOR PAIN, THE IMPORTANCE OF EFFECTIVE PAIN MANAGEMENT, AND THE PAIN ASSESSMENT PROCESS?YES ADVANCE DIRECTIVE ADVANCE DIRECTIVE DISCUSSED WITH PATIENT:YES HCP VIGNESH HERRON [phone] HOSPITALIZATION/MAJOR DIAGNOSTIC PROCEDURE RELATED TO SURGERY VITAL SIGNS WT 193.0 LBS, HT 67 IN, BMI 30.22 INDEX, BP 132/96 MM HG, HR 84 /MIN, RR 18 /MIN, TEMP 98.9 F, OXYGEN SAT % 98%, SAFE IN ENV? (Y/N) YES, NA INITIALS AW 0833, REVIEWED BY: KG. EXAMINATION GENERAL EXAMINATION: A HISTORY AND PHYSICAL EXAM ON THE PATIENT WAS DONE ON 07/22/2020 (DATE OF ORIGINAL ASSESSMENT) IN PREPARATION OF SURGERY/PROCEDURE. I HAVE NOW REASSESSED THIS PATIENT'S HEALTH STATUS AND PERFORMED AN UPDATED EXAM TODAY. ALL CHANGES IN THE PATIENT'S HISTORY, PHYSICAL EXAM, PRE-EXISTING CONDITONS, AND INDICATIONS/CONTRAINDICATIONS TO THE PLANNED PROCEDURE AND ANESTHESIA ARE DOCUMENTED AND EVALUATED BELOW. I ATTEST TO THE ADEQUACY AND APPROPRIATENESS OF MY ASSESSMENT, AND CONFIRM THE NECESSITY FOR THE PLANNED PROCEDURE. THE PATIENT IS ALERT, ORIENTED TIMES THREE AND COOPERATIVE. LUNGS ARE CLEAR TO AUSCULTATION. HEART SHOWS REGULAR RHYTHM, NO MURMURS AND NO GALLOPS. ASSESSMENTS LUMBAR SPINAL STENOSIS - M48.061 (PRIMARY) INTERVERTEBRAL DISC DISORDERS WITH RADICULOPATHY, LUMBAR REGION - M51.16 TREATMENT LUMBAR SPINAL STENOSIS [facility] FLUORO GUIDE SPINE INJECTION (PAIN)[id number] MEDICATION: FENTANYL CITRATE 25MCG IVDIKRISTA ALVARADO 07/26/2020 09:51:39 AM - SECOND DOSE ORDERED, VERIFIED WITH KRISTA LR 07/26/2020 10:06:07 AM - THIRD DOSE ORDERED, VERIFIED WITH KRISTA LR 07/26/2020 10:09:30 AM - FOURTH DOSE ORDERED, VERIFIED WITH LE LEPE 07/26/2020 10:29:32 AM > FIRST DOSE 0942, 50MCG 0945, 25MCG 0949, 25MCG 0951, 25MCG 1006, [id number] FOR A TOTAL OF 200MCG. LE KERR 07/26/2020 10:34:27 AM > CORRECTION TO ORDERS ABOVE - 25MCG 0949, 25MCG 0951, 25MCG 1006, 25MCG 1009. TIMES FOR DOSE OF 50MCG DOCUMENTED IN 50MCG ORDER. MEDICATION: VERSED 1MG IV (MIDAZOLAM)DANE DE ANDA 07/26/2020 9:02:53 AM > VERIFIED LOT# [id number] EXP 10/2022 KRISTA SANTAMARIA 07/26/2020 09:44:51 AM - SECOND DOSE ORDERED, VERIFIED WITH KRISTA LR 07/26/2020 10:03:23 AM - THIRD DOSE ORDERED, VERIFIED WITH LE LEPE 07/26/2020 10:38:15 AM > FIRST DOSE 0942, 1MG 0944, 1MG 1003, FOR A TOTAL OF 3MG. MEDICATION: FENTANYL CITRATE 50MCG IV DANE DE ANDA 07/26/2020 9:03:56 AM > VERIFIED LOT# [id number] EXP 03/2022 KRISTA SANTAMARIA 07/26/2020 09:45:04 AM - SECOND DOSE ORDERED, VERIFIED WITH DR. JUNAID KERR,[facility] 07/26/2020 10:36:31 AM > FIRST DOSE 50MCG 0942, 50MCG 0945. TOTAL GIVEN 200MCG COMBINED WITH 25 MCG ORDER. OXYGEN AT 2 LITERS [facility] 07/26/2020 10:26:06 AM > 0919 - 2L O2 ON , 1012 O2 OFF IV LACTATED RINGER'S AT [facility] 07/26/2020 8:51:57 AM > IV ACCESS OBTAINEDIN BETTY ON FIRST ATTEMPT. LACTATED RINGERS RUNNING AT [facility]. CIRILO,[facility] 07/26/2020 8:59:19 AM > 22G CIRILO,[facility] 07/26/2020 10:26:46 AM > 300 CC LR TOTAL OTHERS NOTES: PAT COMPLETED 07/25/20. Camilo DRAPER RN. PROCEDURES PAIN NURSING RECORD PROCEDURE IN ROOM 0920, PHYSICIAN IN ROOM 0940, START 0948, FINISH 1009, PHYSICIAN OUT OF ROOM 1011, OUT OF ROOM 1019, ECG NORMAL SINUS, PATIENT SHIELDED YES, SAFETY STRAP NO, PREP BETADINE Kasandra GARCIA RN LOC: IN ROOM 0920, PHYSICIAN IN ROOM 0940, START 0948, FINISH 1009, PHYSICIAN OUT OF ROOM 1011, OUT OF ROOM 1019, ECG NORMAL SINUS, PATIENT SHIELDED YES, SAFETY STRAP NO, PREP BETADINE Kasandra GARCIA RN RESP: 1. ALERT, ORIENTED KASIE MORTON 07/26/2020 9:39:54 AM > COLOR: 1. PINK KASIE MORTON 07/26/2020 9:40:06 AM > SKIN: 1. WARM, DRY KASIE MORTON 07/26/2020 9:40:18 AM > POSITION: 1. PRONE KASIE MORTON 07/26/2020 9:40:25 AM > VITALS: 0935 139/71 61 98% ON 2 L 16 RESPKGULLO RN 0940 143/80 61 100% ON 2 18 RESP L KGULLO RN 0945 132/75 66 100 ON 2 L SAHILO RN [id number] 73 100% ON 2 L RESP 18 SAHILO RN 0955 11/65 71 100% ON 2 L RESP 18 SAHILO RN 1000 115/62 67 100 ON 2L 16 RESP SAHILO RN 1005 127/67 67 100% ON 2 L 18 RESP SAHILO RN 1010 1157/57 69 100 ON 2 L 18 RESPIRATIONS SAHILO RN 1015 114/59 72 96 % ON ROOMSIR 18 REDP SAHILO RN 1030 0114/66 72 97% ON ROOM AIR 18 RESP SAHILO RN NOTES IV SEDATIONS ADMINISTERED BY Noel KERR RN COMPLETION OF PROCEDURE APPOINTMENT: POST PAIN 0, DRESSING SITE DRY AND INTACT, IV SITE CLEAR, GAIT STEADY, TEACHING COMPLETED, PATIENT ACKNOWLEDGES UNDERSTANDING YES WENT OVER ENTIRE DISCHARGE INCLUDING PRECAUTIONS DUE TO HAVING IV SEDATION PT VERBALIZES UNDERSTANDING WENT OVER DISCHARGE WITH PTS RIDE HOME ALSO, PATIENT DISCHARGED AT 1100 PN LUMBAR TRANSFORAMINAL BLOCKS PRE PROCEDURE DIAGNOSIS LUMBAR SPINAL STENOSIS, LUMBAR DISC DISORDER WITH RADICULOPATHY POST PROCEDURE DIAGNOSIS LUMBAR SPINAL STENOSIS, LUMBAR DISC DISORDER WITH RADICULOPATHY PROCEDURE BILATERAL L4-L5 TRANSFORAMINAL EPIDURAL STEROID INJECTION UNDER FLUOROSCOPIC GUIDANCE SURGEON DR CATHY QUIROGA MULTIPLE SPINDLE ROUTER OPERATOR NONE ANESTHESIA LOCAL WITH IV SEDATION PRE PROCEDURE NOTE THE PATIENT WITH HISTORY OF CHRONIC LOW BACK PAIN. I EVALUATED THE PATIENT AND REVIEWED THE CHART. I WENT OVER THE RISKS, ALTERNATIVES, AND BENEFITS ASSOCIATED WITH THIS PROCEDURE. THE PATIENT WOULD LIKE TO PROCEED AND GIVE CONSENT TO PERFORMED THE PROCEDURE. THE PATIENT WOULD LIKE TO MOVE FORWARD WITH IV SEDATION DUE TO ANXIETY AND DISCOMFORT ASSOCIATED WITH THE PROCEDURE. THE PATIENT DENIES UNEXPLAINABLE WEIGHT LOSS, FEVER, CHILLS, OR CHANGES IN URINARY OR BOWEL CONTROL. THE PATIENT IS COVID-19 NEGATIVE DESCRIPTION OF PROCEDURE THE PATIENT WAS BROUGHT TO THE PROCEDURE ROOM AND PLACED IN THE PRONE POSITION. THE LUMBOSACRAL AREA WAS CLEANED WITH BETADINE SOLUTION AND DRAPED ASEPTICALLY. THE PROCEDURE WAS DONE UNDER STERILE CONDITIONS. A TIMEOUT WAS PERFORMED WHERE LATERALITY AND THE SITE OF THE PROCEDURE WERE CHECKED AND CONFIRMED WITH EVERYONE IN THE ROOM. UNDER FLUOROSCOPIC GUIDANCE, THE TARGET POINT WAS SELECTED AT THE RIGHT AND LEFT TRANSFORAMINAL OPENING OF L4. TARGET POINT WAS SELECTED AFTER LATERAL ROTATION AND TILT OF THE MAGNIFIER OF THE C-ARM. I CONFIRMED AGAIN WITH EVERYONE IN THE ROOM THE LATERALITY AND SITE OF THE TARGET AT 0945. LIDOCAINE 0.5% WAS USED TO NUMB THE SKIN AND THE SUBCUTANEOUS TISSUE BELOW IT. AN EPIMED INTRODUCER, 18-GAUGE, WAS ADVANCED UNTIL I WENT CLOSE TO THE SELECTED TRANSFORAMINAL OPENINGS. AFTER PROPER POSITION OF THE NEEDLES WAS ACHIEVED, A 22-GAUGE, EPIMED NEEDLE, WAS PLACED INSIDE OF THE INTRODUCER AND ADVANCED TO THE TRANSFORAMINAL OPENING OF THE SELECTED SITES. WHEN PROPER POSITION OF THE NEEDLE WAS ACHIEVED, ISOVUE-M DYE 30%, 0.25 ML, WAS INJECTED SHOWING ADEQUATE SPREAD OF THE DYE. THIS WAS DONE UNDER DIGITAL SUBTRACTION AND ANGIOGRAPHY. THERE WAS NO VASCULAR UPDATE. THEN, A SOLUTION OF 2 ML OF BUPIVACAINE 0.25% AND DEXAMETHASONE 10 MG WAS INJECTED AT EACH SITE. THE MEDICATION WAS VERIFIED WITH THE NURSE. THERE WAS NO EVIDENCE OF BLOOD, PARESTHESIA OR CEREBROSPINAL FLUID DURING THE PROCEDURE. THE PATIENT WAS SENT TO THE RECOVERY ROOM. THE PATIENT WAS MOVING THE EXTREMITIES AND DOING WELL. THERE WAS NO COMPLICATION DURING THE PROCEDURE. ESTIMATED BLOOD LOSS WAS LESS THAN 5 ML. FLUOROSCOPY TIME WAS 1 MINUTE 12 SECONDS. THE PATIENT RECEIVED VERSED 3 MG AND FENTANYL 200 MCG IV IN DIVIDED DOSES. FACE TO FACE START TIME: 0942 FACE TO FACE END TIME: 1012 TOTAL FACE TO FACE TIME: 30 MINUTES POST PROCEDURE NOTE THE PROCEDURE DONE WAS DISCUSSED WITH THE PATIENT. THE PATIENT WILL BE SEEN IN A FOLLOW UP IN THE NEXT FEW WEEKS. I AM LOOKING FOR LONG LASTING PAIN RELIEF FOR THE PATIENT WITH THIS INTERVENTION. INSTRUCTIONS WERE GIVEN, QUESTIONS WERE ANSWERED, AND THE PATIENT EXPRESSED UNDERSTANDING AND AGREES WITH THE PLAN. I, KRISTA SANTAMARIA, DOCUMENTED THE ABOVE INFORMATION ACTING A SCRIBE FOR DR. QUIROGA. I HAVE REVIEWED THE ABOVE DOCUMENT, WRITTEN BY KRISTA SANTAMARIA, SHINGLE BOLT CUTTER, AND I VERIFY THAT IT IS ACCURATE PROCEDURE CODES 78740 INJ FORAMEN EPIDURAL C/T, MODIFIERS: 50 [id number] MOD SED SAME PHYS/QHP 5/>YRS 27678 MOD SED SAME PHYS/QHP EA DISPOSITION & COMMUNICATION FOLLOW UP FOLLOW UP WITH SPEECH AND HEARING CLINIC DIRECTOR (REASON: POST BILATERAL TRANSFORAMINAL EPIDURAL STEROID INJECTION L4-L5) ELECTRONICALLY SIGNED BY CATHY QUIROGA MD, MD ON 07/27/2020 AT 05:16 PM EST DISCLAIMER : THIS IS A VISIT SUMMARY EXTRACTED FROM THE [employer] CHART. IT IS NOT A COPY OF THE [employer] PROGRESS NOTE. MTDD
== END ==
LOC: M PAIN 08:00
PROVIDERS: ATTEND Anesthesiology
DX: M48.061 Spinal stenosis, lumbar region without neurogenic claudication (principal); M51.16 Intervertebral disc disorders with radiculopathy, lumbar region; G43.909 Migraine, unspecified, not intractable, without status migrainosus; F41.9 Anxiety disorder, unspecified; K75.81 Nonalcoholic steatohepatitis (NASH); Z87.891 Personal history of nicotine dependence; Z79.891 Long term (current) use of opiate analgesic; Z79.899 Other long term (current) drug therapy; Z91.048 Other nonmedicinal substance allergy status
CPT/HCPCS: 64479; 99152; 99153; J1100; J2250; J3010; Q9967

== ENCOUNTER → 2020-08-03 | Outpatient (REF) | payer OTHER ==
[~2020-08-03] MED LIST changes: -BUPIVACAINE HCL 0.25% 30ML VIAL As Ordered ONE; -ISOVUE-M 300 61% 15ML VIAL As Ordered ONE; -LIDOCAINE 1% SDV 30ML VIAL As Ordered ONE; -MIDAZOLAM INJ 2MG/2ML VIAL (J2250 PER 1MG) As Ordered ONE; -dexameTHASONE 10MG/1ML VIAL PRES.FREE (J1100 PER 1MG) As Ordered ONE; -fentaNYL 100 MCG/2 ML INJECTION (J3010) As Ordered ONE
[2020-08-03 15:50] LABS: BLOOD UREA NITROGEN 17 MG/DL (7-18); CARBON DIOXIDE LEVEL 31 MEQ/L (21-32); CHLORIDE LEVEL 100 MEQ/L (98-107); CREATININE FOR GFR 0.97 MG/DL (0.55-1.30); GLOMERULAR FILTRATION RATE > 60.0 (>58); GLUCOSE, FASTING 101 MG/DL (70-100); POTASSIUM SERUM 4.1 MEQ/L (3.5-5.1); SODIUM LEVEL 138 MEQ/L (136-145)
== END ==
LOC: M PLALAB 13:58
PROVIDERS: ATTEND Family Medicine
DX: I10 Essential (primary) hypertension (principal)

== ENCOUNTER → 2020-08-09 | Outpatient (CLI) | payer OTHER ==
--- NOTE | 2020-08-10 01:59 | ECWPNPC ---
PATIENT NAME: MIKE LAI : 1980 GENDER: FEMALE VISIT DATE: 08/09/2020 DISCHARGE DATE: 08/09/20 1115 VISIT LOCKED DATE TIME: PHYSICIAN: SABIHA BERNARDO PHYSICIAN PAGER NO: ACTIVE RESOURCE: SABIHA BERNARDO REASON FOR APPOINTMENT 1. BILATERAL L4-5 TRANSFORAMINAL STEROID INJECTION WITH IV SEDATION HISTORY OF PRESENT ILLNESS DEPRESSION SCREENING: PHQ-2 (2015 EDITION) LITTLE INTEREST OR PLEASURE IN DOING THINGS?NOT AT ALL FEELING DOWN, DEPRESSED, OR HOPELESS?NOT AT ALL TOTAL SCORE0 GENERAL: - HERE FOR POST PROCEDURE FOLLOW-UP. HAD BILATERAL L4/5,L5/S1 TRANSFORAMINAL STEROID INJECTION WITH IV SEDATION ON 07/26/2020. REPORTING REDUCTION OF LOW BACK PAIN SINCE THIS PROCEDURE.REPORTING MARKED IMPROVEMENT IN BILAT. LEG PAIN R>L. REPORTING IMPROVED ACTIVITY TOLERANCE AND LESS USE OF PAIN MEDICATION SINCE PROCEDURE. FALL RISK SCREENING: SCREENING :NO FALLS REPORTED IN THE LAST YEAR PAIN SCREENING: PATIENT HAS A COMPLAINT OF ACUTE OR CHRONIC PAIN :YES LOCATION OF PAIN:LOW BACK INTENSITY OF PAIN (SCALE OF 1 TO 10):4 WHAT DOES YOUR PAIN FEEL LIKE:ACHING, SORE DURATION:CONTINOUS, CONSTANT, ALL DAY PAIN IS INCREASED BY:ACTIVITIES, PROLONGED STANDING, OTHERS PAIN IS DECREASED BY:USE OF PAIN MEDICATIONS NURSING NOTE: -. PAIN CENTER INTAKE QUESTIONS: DO YOU HAVE A HISTORY OF MRSA? :NO DO YOU TAKE A BLOOD THINNERS? :NO DO YOU HAVE ANY BLEEDING DISORDERS? :NO ANY NEW NUMBNESS OR WEAKNESS IN YOUR LEGS OR ARMS? :NO ANY PACEMAKER,DEFIBRILLATOR, OR DORSAL COLUMN STIMULATOR? :NO DO YOU HAVE ANY RASHES OR OPEN SORES? :NO ARE YOU ALLERGIC TO IV DYE? :NO ARE YOU DIABETIC? :NO ANY NEW PROBLEMS WITH YOUR MEDICATIONS? :NO HAVE YOU RECEIVED A VACCINE IN THE PAST 30 DAYS? :NO DO YOU PLAN TO RECEIVE A VACCINE IN THE NEXT 21 DAYS? :NO DO YOU NEED ANY PRESCRIPTION? :NO DO YOU TAKE ANY IMMUNOSUPPRESSIVE MEDICATIONS? :NO IS THERE A CHANCE YOU COULD BE ? :NO ARE YOU BREAST FEEDING? :NO CURRENT MEDICATIONS TAKING HYDROCODONE-ACETAMINOPHEN 7.5-325 MG TABLET 1 TABLET NEEDED ORALLY Q6H PRN MDD4 TAKING EXCEDRIN MIGRAINE 250-250-65 MG TABLET 2 TABLETS NEEDED ORALLY EVERY 6 HRS, NOTES: NONE RECENT TAKING PANTOPRAZOLE SODIUM 20 MG TABLET DELAYED RELEASE 1 TABLET ORALLY ONCE A DAY TAKING AZELASTINE HCL 0.1 % SOLUTION 1 PUFF IN EACH NOSTRIL NASALLY TWICE A DAY TAKING LISINOPRIL-HYDROCHLOROTHIAZIDE 10-12.5 MG TABLET 1 TABLET ORALLY ONCE A DAY MEDICATION LIST REVIEWED AND RECONCILED WITH THE PATIENT PAST MEDICAL HISTORY TENDONITIS- RAUL KNEE MIGRAINES URINARY STRESS INCONTINENCE ANXIETY, ?PTSD HISTORY OF TOBACCO USE DYSPEPSIA GRANADOS BILATERAL CARPAL TUNNEL SYNDROME CHRONIC BACK PAIN, 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 ALLERGIES GOLD: RASH - ALLERGY BLEACH: SMELL CAUSES NAUSEA/VOMITING, REDNESS AND SWELLING SURGICAL HISTORY LEFT BUTTOCK ABSCESS REMOVAL RIGHT THIGH ABSCESS REMOVAL BTL 2008 ALL TEETH REMOVED SOCIAL HISTORY GENERAL: TOBACCO USE ARE YOU A:FORMER SMOKER HOW LONG HAS IT BEEN SINCE YOU LAST SMOKED?1-5 YEARS SMOKING CESSATION INFORMATION GIVEN05/10/2017 LATEX QUESTIONNAIRE LATEX ALLERGY : HAVE YOU EVER DEVELOPED ANY TYPE OF REACTION AFTER HANDLING LATEX PRODUCTS SUCH RUBBER GLOVES, CONDOMS, DIAPHRAGMS, BALLOONS, SOCKS, OR UNDERWEAR?NO LATEX ALLERGY : HAVE YOU EVER DEVELOPED ANY TYPE OF REACTION DURING OR AFTER DENTAL APPOINTMENT, VAGINAL/RECTAL EXAMINATION, SURGICAL PROCEDURE, OR ANY OTHER EXPOSURE?NO LATEX RISK : HAVE YOU EVER HAD ANY DIFFICULTY BREATHING OR HIVES AFTER EATING OR HANDLING ANY FRUITS, OR VEGETABLES; SUCH KIWI, BANANAS, STONE FRUITS, OR CHESTNUTSNO LATEX RISK : DO YOU HAVE A PREVIOUS PERSONAL HISTORY OF MORE THAN NINE SURGERIES, SPINA BIFIDA, OR REPEATED CATHERIZATIONS? NO LATEX RISK : ARE YOU FREQUENTLY EXPOSED TO LATEX PRODUCTS IN YOUR OCCUPATION?NO DATE ASKED : 08/09/2020 ALCOHOL USE: NO. BMI CARE GOAL FOLLOW-UP ABOVE NORMAL BMI FOLLOW-UPDIETARY NEEDS EDUCATION ALCOHOL SCREENING DID YOU HAVE A DRINK CONTAINING ALCOHOL IN THE PAST YEAR?YES HOW OFTEN DID YOU HAVE SIX OR MORE DRINKS ON ONE OCCASION IN THE PAST YEAR?NEVER (0 POINTS) HOW MANY DRINKS DID YOU HAVE ON A TYPICAL DAY WHEN YOU WERE DRINKING IN THE PAST YEAR?1 OR 2 (0 POINTS) HOW OFTEN DID YOU HAVE A DRINK CONTAINING ALCOHOL IN THE PAST YEAR?MONTHLY OR LESS (1 POINT) POINTS1 INTERPRETATIONNEGATIVE RECREATIONAL DRUG USE DRUG USE?NO PATIENT DENIES ABUSE OR MISSUSED OF ANY MEDICATION. PATIENT DENIES USE OF ANY ILLEGAL SUBSTANCE INCLUDING MARIJUANA OR COCAINE. CAFFEINE CAFFEINE USE?YES HOW OFTEN AND HOW MUCH? 1-2 CUP SEXUAL HX HAD SEX IN THE LAST 12 MONTHS (VAGINAL, ORAL, OR ANAL)?YES WITHMEN ONLY PREVENTION STRATEGIES DISCUSSED:CONDOMS USE PROTECTION?NO LMP:08/29/2016 HAVE YOU EVER HAD AN STD?NO HIV / HEP-C SCREENING HIV TEST OFFERED TO PATIENT:YES DATE OFFERED:07/03/2016 TEST ACCEPTED:NO HEP-C TEST OFFERED TO PATIENT:YES DATE OFFERED:07/03/2016 REASON:PATIENT DECLINED TEST ACCEPTED:NO REASON:PATIENT DECLINED [facility] [id number] NONE LANGUAGE LANGUAGES SPOKEN:[place] EDUCATION LEVEL OF EDUCATION:NOT FINISHED COLLEGE LEARNING BARRIERS / SPECIAL NEEDS CHANGE FROM LAST VISIT?NO BARRIERS TO LEARNING?NO HEARING IMPAIRED?NO VISION IMPAIRED?YES :CORRECTIVE LENSES COGNITIVELY IMPAIRED?NO READINESS TO LEARN?YES LEARNING PREFERENCES?NO LEARNING CAPABILITIES PRESENT?YES EMOTIONAL BARRIERS?NO SPECIAL DEVICES?NO 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 MARITAL STATUS: SINGLE. OTHERS AT HOME: CHILD, OTHER NON-RELATIVE. - WAS THE PROVIDER NOTIFIED OF ANY PERTINENT INFO?YES N/A HAS THE PATIENT BEEN EDUCATED REGARDING HIS/HER PLAN OF CARE?YES HAS THE PATIENT BEEN EDUCATED REGARDING PAIN, THE RISK FOR PAIN, THE IMPORTANCE OF EFFECTIVE PAIN MANAGEMENT, AND THE PAIN ASSESSMENT PROCESS?YES ADVANCE DIRECTIVE ADVANCE DIRECTIVE DISCUSSED WITH PATIENT:YES HCP VIGNESH HERRON [phone] HOSPITALIZATION/MAJOR DIAGNOSTIC PROCEDURE RELATED TO SURGERY REVIEW OF SYSTEMS CONSTITUTIONAL: ANY RECENT FEVER NO . CHILLS NO . WEIGHT CHANGE OF UNKNOWN REASONS NO . GASTROENTEROLOGY: NEW UNEXPLAINABLE CHANGES IN BOWEL CONTROL NO . CONSTIPATION NO . GENITOURINARY: ANY NEW CHANGE IN BLADDER CONTROL? NO . NEUROLOGY: NEW ONSET DIZZINESS OR NEUROLOGICAL CHANGES NOT MENTIONED NO . NEW NUMBNESS OR PAIN PATTERNS NOT MENTIONED AND PERTINENT TO TODAY'S VISIT NO . CARDIOLOGY: NEW CHEST PRESSURE NO . NEW CHEST PAIN NO . RESPIRATORY: UNEXPLAINABLE COUGH NO . NEW SHORTNESS OF BREATH NO . VITAL SIGNS WT 193 LBS, HT 67 IN, BMI 30.22 INDEX, BP 119/76 MM HG, HR 81 /MIN, RR 18 /MIN, TEMP 98.6 F, OXYGEN SAT % 100%, SAFE IN ENV? (Y/N) YEST.POLINA BOWIE. EXAMINATION GENERAL EXAMINATION: GENERALAWAKE,ALERT ,PLEASANT . PSYCHAFFECT NORMAL . LUNGS:LUNG RICO ARE CLEAR TO AUSCULTATION BILATERALLY. GOOD MOVEMENT OF AIR . HEART:S1, S2 IN A REGULAR RATE AND RHYTHM. NO SIGNIFICANT MURMURS, RUBS OR GALLOPS NOTED . ASSESSMENTS OTHER CHRONIC PAIN - G89.29 (PRIMARY) INTERVERTEBRAL DISC DISORDER WITH RADICULOPATHY OF LUMBOSACRAL REGION - M51.17 TREATMENT OTHER CHRONIC PAIN CONTINUE HYDROCODONE-ACETAMINOPHEN TABLET, 7.5-325 MG, 1 TABLET NEEDED, ORALLY, Q6H PRN MDD4 PAIN PROCEDURE LOGDATE OF PROCEDURE07/26/20PROCEDURE:BILATERAL TRANSFORAMINAL STEROID INJECTIONAMOUNT OF PRE SEDATEFENTANLY CITRATE 200 MCG, VERSED 2 MGRESULT:MARKED REDUCTION IN PAIN ESPECIALLY IN LEGS RIGHT GREATER THAN LEFT PROCEDURE CODES FA211 ESTABILISHED PATIENT MERGED WITH [facility] CHARGE DISPOSITION & COMMUNICATION FOLLOW UP 3 MONTHS (REASON: MED MGMNT,UTOX) ELECTRONICALLY SIGNED BY TOBIAS KABA ON 08/09/2020 AT 12:26 PM EST DISCLAIMER : THIS IS A VISIT SUMMARY EXTRACTED FROM THE [employer] CHART. IT IS NOT A COPY OF THE [employer] PROGRESS NOTE. MTDD
== END ==
LOC: M PAIN 10:45
PROVIDERS: ATTEND Nurse Practitioner Family
DX: G89.29 Other chronic pain (principal); M51.17 Intervertebral disc disorders with radiculopathy, lumbosacral region; G43.909 Migraine, unspecified, not intractable, without status migrainosus; F41.9 Anxiety disorder, unspecified; K75.81 Nonalcoholic steatohepatitis (NASH); Z79.899 Other long term (current) drug therapy; Z91.048 Other nonmedicinal substance allergy status

== ENCOUNTER → 2020-08-31 | Outpatient (CLI) | payer OTHER ==
--- NOTE | 2020-09-04 23:08 | ECWPNPC ---
PATIENT NAME: MIKE LAI : 1980 GENDER: FEMALE VISIT DATE: 08/31/2020 DISCHARGE DATE: 08/31/20 1016 VISIT LOCKED DATE TIME: PHYSICIAN: SABIHA BERNARDO PHYSICIAN PAGER NO: ACTIVE RESOURCE: SABIHA BERNARDO REASON FOR APPOINTMENT 1. INCREASED PAIN/LOW BACK/MED MGMNT HISTORY OF PRESENT ILLNESS GENERAL: BEING SEEN ON AN URGENT BASIS FOR INCREASE IN LEFT LEG PAIN.STATES SHE RECIEVED APPROXIMATLEY 6 WEEKS OF MARKED REDUCTION IN LEG PAIN AFTER BILAT. L4/5 TRANSFORAMINAL W IV SEDATION IN JULY.CONTINUES TO HAVE IMPROVEMENT IN RIGHT LEG PAIN TODAY. -. FALL RISK SCREENING: SCREENING :NO FALLS REPORTED IN THE LAST YEAR PAIN SCREENING: PATIENT HAS A COMPLAINT OF ACUTE OR CHRONIC PAIN :YES LOCATION OF PAIN:LOW BACK INTENSITY OF PAIN (SCALE OF 1 TO 10):7 WHAT DOES YOUR PAIN FEEL LIKE:ACHING DURATION:CONTINOUS, CONSTANT, ALL DAY PAIN IS INCREASED BY:ACTIVITIES PAIN IS DECREASED BY:USE OF PAIN MEDICATIONS NURSING NOTE: -. PAIN CENTER INTAKE QUESTIONS: DO YOU HAVE A HISTORY OF MRSA? :NO DO YOU TAKE A BLOOD THINNERS? :NO DO YOU HAVE ANY BLEEDING DISORDERS? :NO ANY NEW NUMBNESS OR WEAKNESS IN YOUR LEGS OR ARMS? :NO ANY PACEMAKER,DEFIBRILLATOR, OR DORSAL COLUMN STIMULATOR? :NO DO YOU HAVE ANY RASHES OR OPEN SORES? :NO ARE YOU ALLERGIC TO IV DYE? :NO ARE YOU DIABETIC? :NO ANY NEW PROBLEMS WITH YOUR MEDICATIONS? :NO HAVE YOU RECEIVED A VACCINE IN THE PAST 30 DAYS? :NO DO YOU PLAN TO RECEIVE A VACCINE IN THE NEXT 21 DAYS? :NO DO YOU NEED ANY PRESCRIPTION? :NO DO YOU TAKE ANY IMMUNOSUPPRESSIVE MEDICATIONS? :NO IS THERE A CHANCE YOU COULD BE ? :NO ARE YOU BREAST FEEDING? :NO CURRENT MEDICATIONS TAKING EXCEDRIN MIGRAINE 250-250-65 MG TABLET 2 TABLETS NEEDED ORALLY EVERY 6 HRS TAKING PANTOPRAZOLE SODIUM 20 MG TABLET DELAYED RELEASE 1 TABLET ORALLY ONCE A DAY TAKING AZELASTINE HCL 0.1 % SOLUTION 1 PUFF IN EACH NOSTRIL NASALLY TWICE A DAY TAKING HYDROCODONE-ACETAMINOPHEN 7.5-325 MG TABLET 1 TABLET NEEDED ORALLY Q6H PRN MDD4 TAKING LISINOPRIL-HYDROCHLOROTHIAZIDE 10-12.5 MG TABLET 1 TABLET ORALLY ONCE A DAY MEDICATION LIST REVIEWED AND RECONCILED WITH THE PATIENT PAST MEDICAL HISTORY TENDONITIS- RAUL KNEE MIGRAINES URINARY STRESS INCONTINENCE ANXIETY, ?PTSD HISTORY OF TOBACCO USE DYSPEPSIA GRANADOS BILATERAL CARPAL TUNNEL SYNDROME CHRONIC BACK PAIN, 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 ALLERGIES GOLD: RASH - ALLERGY BLEACH: SMELL CAUSES NAUSEA/VOMITING, REDNESS AND SWELLING SOCIAL HISTORY GENERAL: TOBACCO USE ARE YOU A:FORMER SMOKER HOW LONG HAS IT BEEN SINCE YOU LAST SMOKED?1-5 YEARS SMOKING CESSATION INFORMATION GIVEN05/10/2017 LATEX QUESTIONNAIRE LATEX ALLERGY : HAVE YOU EVER DEVELOPED ANY TYPE OF REACTION AFTER HANDLING LATEX PRODUCTS SUCH RUBBER GLOVES, CONDOMS, DIAPHRAGMS, BALLOONS, SOCKS, OR UNDERWEAR?NO LATEX ALLERGY : HAVE YOU EVER DEVELOPED ANY TYPE OF REACTION DURING OR AFTER DENTAL APPOINTMENT, VAGINAL/RECTAL EXAMINATION, SURGICAL PROCEDURE, OR ANY OTHER EXPOSURE?NO LATEX RISK : HAVE YOU EVER HAD ANY DIFFICULTY BREATHING OR HIVES AFTER EATING OR HANDLING ANY FRUITS, OR VEGETABLES; SUCH KIWI, BANANAS, STONE FRUITS, OR CHESTNUTSNO LATEX RISK : DO YOU HAVE A PREVIOUS PERSONAL HISTORY OF MORE THAN NINE SURGERIES, SPINA BIFIDA, OR REPEATED CATHERIZATIONS? NO LATEX RISK : ARE YOU FREQUENTLY EXPOSED TO LATEX PRODUCTS IN YOUR OCCUPATION?NO DATE ASKED : 08/31/2020 ALCOHOL USE: NO. BMI CARE GOAL FOLLOW-UP ABOVE NORMAL BMI FOLLOW-UPDIETARY NEEDS EDUCATION ALCOHOL SCREENING DID YOU HAVE A DRINK CONTAINING ALCOHOL IN THE PAST YEAR?YES HOW OFTEN DID YOU HAVE SIX OR MORE DRINKS ON ONE OCCASION IN THE PAST YEAR?NEVER (0 POINTS) HOW MANY DRINKS DID YOU HAVE ON A TYPICAL DAY WHEN YOU WERE DRINKING IN THE PAST YEAR?1 OR 2 (0 POINTS) HOW OFTEN DID YOU HAVE A DRINK CONTAINING ALCOHOL IN THE PAST YEAR?MONTHLY OR LESS (1 POINT) POINTS1 INTERPRETATIONNEGATIVE RECREATIONAL DRUG USE DRUG USE?NO PATIENT DENIES ABUSE OR MISSUSED OF ANY MEDICATION. PATIENT DENIES USE OF ANY ILLEGAL SUBSTANCE INCLUDING MARIJUANA OR COCAINE. CAFFEINE CAFFEINE USE?YES HOW OFTEN AND HOW MUCH? 1-2 CUP SEXUAL HX HAD SEX IN THE LAST 12 MONTHS (VAGINAL, ORAL, OR ANAL)?YES WITHMEN ONLY PREVENTION STRATEGIES DISCUSSED:CONDOMS USE PROTECTION?NO LMP:08/29/2016 HAVE YOU EVER HAD AN STD?NO HIV / HEP-C SCREENING HIV TEST OFFERED TO PATIENT:YES DATE OFFERED:07/03/2016 TEST ACCEPTED:NO HEP-C TEST OFFERED TO PATIENT:YES DATE OFFERED:07/03/2016 REASON:PATIENT DECLINED TEST ACCEPTED:NO REASON:PATIENT DECLINED [place] [id number] NONE LANGUAGE LANGUAGES SPOKEN:CHINESE EDUCATION LEVEL OF EDUCATION:NOT FINISHED COLLEGE LEARNING BARRIERS / SPECIAL NEEDS CHANGE FROM LAST VISIT?NO BARRIERS TO LEARNING?NO HEARING IMPAIRED?NO VISION IMPAIRED?YES :CORRECTIVE LENSES COGNITIVELY IMPAIRED?NO READINESS TO LEARN?YES LEARNING PREFERENCES?NO LEARNING CAPABILITIES PRESENT?YES EMOTIONAL BARRIERS?NO SPECIAL DEVICES?NO INDUSTRIAL EQUIPMENT MECHANIC NEEDED?NO DOMESTIC VIOLENCE DO YOU FEEL SAFE IN YOUR ENVIRONMENT?YES 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 MARITAL STATUS: SINGLE. OTHERS AT HOME: CHILD, OTHER NON-RELATIVE. - WAS THE PROVIDER NOTIFIED OF ANY PERTINENT INFO?YES N/A HAS THE PATIENT BEEN EDUCATED REGARDING HIS/HER PLAN OF CARE?YES HAS THE PATIENT BEEN EDUCATED REGARDING PAIN, THE RISK FOR PAIN, THE IMPORTANCE OF EFFECTIVE PAIN MANAGEMENT, AND THE PAIN ASSESSMENT PROCESS?YES ADVANCE DIRECTIVE ADVANCE DIRECTIVE DISCUSSED WITH PATIENT:YES HCP VIGNESH HERRON [phone] REVIEW OF SYSTEMS CONSTITUTIONAL: ANY RECENT FEVER NO . CHILLS NO . WEIGHT CHANGE OF UNKNOWN REASONS NO . GASTROENTEROLOGY: NEW UNEXPLAINABLE CHANGES IN BOWEL CONTROL NO . CONSTIPATION NO . GENITOURINARY: ANY NEW CHANGE IN BLADDER CONTROL? NO . NEUROLOGY: NEW ONSET DIZZINESS OR NEUROLOGICAL CHANGES NOT MENTIONED NO . NEW NUMBNESS OR PAIN PATTERNS NOT MENTIONED AND PERTINENT TO TODAY'S VISIT NO . CARDIOLOGY: NEW CHEST PRESSURE NO . PATIENT DENIES NO . RESPIRATORY: UNEXPLAINABLE COUGH NO . NEW SHORTNESS OF BREATH NO . VITAL SIGNS WT 195 LBS, HT 67 IN, BMI 30.54 INDEX, BP 117/64 MM HG, HR 83 /MIN, RR 18 /MIN, TEMP 98 F, OXYGEN SAT % 98%, SAFE IN ENV? (Y/N) YEST.POLINA BOWIE. EXAMINATION GENERAL EXAMINATION: GENERAL AWAKE,ALERT ,PLEASANT . PSYCH AFFECT NORMAL . LUNGS: LUNG RICO ARE CLEAR TO AUSCULTATION BILATERALLY. GOOD MOVEMENT OF AIR . HEART: S1, S2 IN A REGULAR RATE AND RHYTHM. NO SIGNIFICANT MURMURS, RUBS OR GALLOPS NOTED . MUSCULOSKELETAL:MILD WEAKNESS OVER BILAT. LOWER EXTREMITIES. LUMBAR:PALPATION: + FOR PAIN OVER L/S SPINE. + FOR PAIN OVER L/S PARASPINALS POSITIVE MODIFIED SLE AT 45 DEGREES BILAT.. NEUROLOGIC EXAM: NORMAL SENSATION LIGHT TOUCH BILAT. LOWER EXTREMITIES. DIAGNOSTIC TESTS REVIEWED MRI L/S SPINE-08/20/18. ASSESSMENTS INTERVERTEBRAL DISC DISORDERS WITH RADICULOPATHY, LUMBOSACRAL REGION - M51.17 (PRIMARY) TREATMENT INTERVERTEBRAL DISC DISORDERS WITH RADICULOPATHY, LUMBOSACRAL REGION REFILL HYDROCODONE-ACETAMINOPHEN TABLET, 7.5-325 MG, 1 TABLET NEEDED, ORALLY, Q6H PRN MDD4, 30 DAYS, 120, REFILLS 0 NOTES: BILATERAL TRANSFORAMINAL EPIDURAL STERIOD INJECTION L4/5,L5/S1 W IV SEDATION PRINTED AND REVIEWED PRE PROCEDURE WITH PATIENT ROBSON BOWIE. PROCEDURE CODES FA211 ESTABILISHED PATIENT [facility] CHARGE DISPOSITION & COMMUNICATION FOLLOW UP BILAT TRANSFORAMINAL STEROID INJECTION W IV SEDATION/DR Page PRE IV SED VISIT (REASON: BILATERAL TRANSFORAMINAL EPIDURAL STERIOD INJECTION) ELECTRONICALLY SIGNED BY TOBIAS KABA ON 09/04/2020 AT 03:23 PM EST DISCLAIMER : THIS IS A VISIT SUMMARY EXTRACTED FROM THE [employer] [facility] CHART. IT IS NOT A COPY OF THE [employer] PROGRESS NOTE. STANLEYD
== END ==
LOC: M PAIN 09:15
PROVIDERS: ATTEND Nurse Practitioner Family
DX: M51.17 Intervertebral disc disorders with radiculopathy, lumbosacral region (principal); G43.909 Migraine, unspecified, not intractable, without status migrainosus; Z87.891 Personal history of nicotine dependence; Z79.891 Long term (current) use of opiate analgesic; Z79.899 Other long term (current) drug therapy; Z91.048 Other nonmedicinal substance allergy status

== ENCOUNTER → 2020-09-09 | Outpatient (CLI) | payer OTHER ==
--- NOTE | 2020-09-14 01:01 | ECWPNPC ---
PATIENT NAME: MIKE LAI : 1980 GENDER: FEMALE VISIT DATE: 09/09/2020 DISCHARGE DATE: 09/09/20 1146 VISIT LOCKED DATE TIME: PHYSICIAN: CATHY QUIROGA MD PHYSICIAN PAGER NO: ACTIVE RESOURCE: CATHY QUIROGA MD REASON FOR APPOINTMENT 1. PRE SEDATE FOR BILATERAL TRANSFORMAINAL HISTORY OF PRESENT ILLNESS GENERAL: 40-YEAR-OLD FEMALE PATIENT WITH A HISTORY OF CHRONIC LOW BACK AND MAINLY LEFT LEG PAIN. THE PATIENT DESCRIBES THE PAIN BURNING, CONSTANT AND SEVERE WITH A PAIN SCORE RANGING FROM 7-10/10. SHE HAS RECEIVED TRANSFORAMINAL EPIDURALS IN THE PAST WITH ADEQUATE PAIN RELIEF. FALL RISK SCREENING: SCREENING : NO FALLS REPORTED IN THE LAST YEAR. PAIN SCREENING: PATIENT HAS A COMPLAINT OF ACUTE OR CHRONIC PAIN :YES LOCATION OF PAIN:LEG(S) INTENSITY OF PAIN (SCALE OF 1 TO 10):9 WHAT DOES YOUR PAIN FEEL LIKE:BURNING DURATION:CONTINOUS, CONSTANT PAIN IS INCREASED BY:ACTIVITIES PAIN IS DECREASED BY:USE OF PAIN MEDICATIONS NURSING NOTE: -. PAIN CENTER INTAKE QUESTIONS: DO YOU HAVE A HISTORY OF MRSA? :NO DO YOU TAKE A BLOOD THINNERS? :NO DO YOU HAVE ANY BLEEDING DISORDERS? :NO ANY NEW NUMBNESS OR WEAKNESS IN YOUR LEGS OR ARMS? :NO ANY PACEMAKER,DEFIBRILLATOR, OR DORSAL COLUMN STIMULATOR? :NO DO YOU HAVE ANY RASHES OR OPEN SORES? :NO ARE YOU ALLERGIC TO IV DYE? :NO ARE YOU DIABETIC? :NO ANY NEW PROBLEMS WITH YOUR MEDICATIONS? :NO HAVE YOU RECEIVED A VACCINE IN THE PAST 30 DAYS? :NO DO YOU PLAN TO RECEIVE A VACCINE IN THE NEXT 21 DAYS? :NO DO YOU NEED ANY PRESCRIPTION? :NO DO YOU TAKE ANY IMMUNOSUPPRESSIVE MEDICATIONS? :NO DO YOU HAVE ANY KIDNEY OR LIVER DISEASE? :NO IS THERE A CHANCE YOU COULD BE ? :NO ARE YOU BREAST FEEDING? :NO CURRENT MEDICATIONS TAKING EXCEDRIN MIGRAINE 250-250-65 MG TABLET 2 TABLETS NEEDED ORALLY EVERY 6 HRS TAKING PANTOPRAZOLE SODIUM 20 MG TABLET DELAYED RELEASE 1 TABLET ORALLY ONCE A DAY TAKING AZELASTINE HCL 0.1 % SOLUTION 1 PUFF IN EACH NOSTRIL NASALLY TWICE A DAY TAKING LISINOPRIL-HYDROCHLOROTHIAZIDE 10-12.5 MG TABLET 1 TABLET ORALLY ONCE A DAY TAKING HYDROCODONE-ACETAMINOPHEN 7.5-325 MG TABLET 1 TABLET NEEDED ORALLY Q6H PRN MDD4 MEDICATION LIST REVIEWED AND RECONCILED WITH THE PATIENT PAST MEDICAL HISTORY TENDONITIS- RAUL KNEE MIGRAINES URINARY STRESS INCONTINENCE ANXIETY, ?PTSD HISTORY OF TOBACCO USE DYSPEPSIA GRANADOS BILATERAL CARPAL TUNNEL SYNDROME CHRONIC BACK PAIN, 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 HTN ALLERGIES GOLD: RASH - ALLERGY BLEACH: SMELL CAUSES NAUSEA/VOMITING, REDNESS AND SWELLING SOCIAL HISTORY GENERAL: TOBACCO USE ARE YOU A:FORMER SMOKER HOW LONG HAS IT BEEN SINCE YOU LAST SMOKED?1-5 YEARS SMOKING CESSATION INFORMATION GIVEN05/10/2017 LATEX QUESTIONNAIRE LATEX ALLERGY : HAVE YOU EVER DEVELOPED ANY TYPE OF REACTION AFTER HANDLING LATEX PRODUCTS SUCH RUBBER GLOVES, CONDOMS, DIAPHRAGMS, BALLOONS, SOCKS, OR UNDERWEAR?NO LATEX ALLERGY : HAVE YOU EVER DEVELOPED ANY TYPE OF REACTION DURING OR AFTER DENTAL APPOINTMENT, VAGINAL/RECTAL EXAMINATION, SURGICAL PROCEDURE, OR ANY OTHER EXPOSURE?NO DATE ASKED : 08/31/2020 LATEX RISK : HAVE YOU EVER HAD ANY DIFFICULTY BREATHING OR HIVES AFTER EATING OR HANDLING ANY FRUITS, OR VEGETABLES; SUCH KIWI, BANANAS, STONE FRUITS, OR CHESTNUTSNO LATEX RISK : DO YOU HAVE A PREVIOUS PERSONAL HISTORY OF MORE THAN NINE SURGERIES, SPINA BIFIDA, OR REPEATED CATHERIZATIONS? NO LATEX RISK : ARE YOU FREQUENTLY EXPOSED TO LATEX PRODUCTS IN YOUR OCCUPATION?NO ALCOHOL USE: NO. BMI CARE GOAL FOLLOW-UP ABOVE NORMAL BMI FOLLOW-UPDIETARY NEEDS EDUCATION ALCOHOL SCREENING DID YOU HAVE A DRINK CONTAINING ALCOHOL IN THE PAST YEAR?YES HOW OFTEN DID YOU HAVE SIX OR MORE DRINKS ON ONE OCCASION IN THE PAST YEAR?NEVER (0 POINTS) HOW MANY DRINKS DID YOU HAVE ON A TYPICAL DAY WHEN YOU WERE DRINKING IN THE PAST YEAR?1 OR 2 (0 POINTS) HOW OFTEN DID YOU HAVE A DRINK CONTAINING ALCOHOL IN THE PAST YEAR?MONTHLY OR LESS (1 POINT) POINTS1 INTERPRETATIONNEGATIVE RECREATIONAL DRUG USE DRUG USE?NO PATIENT DENIES ABUSE OR MISSUSED OF ANY MEDICATION. PATIENT DENIES USE OF ANY ILLEGAL SUBSTANCE INCLUDING MARIJUANA OR COCAINE. CAFFEINE CAFFEINE USE?YES HOW OFTEN AND HOW MUCH? 1-2 CUP SEXUAL HX HAD SEX IN THE LAST 12 MONTHS (VAGINAL, ORAL, OR ANAL)?YES WITHMEN ONLY PREVENTION STRATEGIES DISCUSSED:CONDOMS USE PROTECTION?NO LMP:08/29/2016 HAVE YOU EVER HAD AN STD?NO HIV / HEP-C SCREENING HIV TEST OFFERED TO PATIENT:YES DATE OFFERED:07/03/2016 TEST ACCEPTED:NO HEP-C TEST OFFERED TO PATIENT:YES DATE OFFERED:07/03/2016 REASON:PATIENT DECLINED TEST ACCEPTED:NO REASON:PATIENT DECLINED [facility] [id number] NONE LANGUAGE LANGUAGES SPOKEN:PORTUGUES[place] EDUCATION LEVEL OF EDUCATION:NOT FINISHED COLLEGE LEARNING BARRIERS / SPECIAL NEEDS CHANGE FROM LAST VISIT?NO BARRIERS TO LEARNING?NO HEARING IMPAIRED?NO VISION IMPAIRED?YES COGNITIVELY IMPAIRED?NO :CORRECTIVE LENSES READINESS TO LEARN?YES LEARNING PREFERENCES?NO LEARNING CAPABILITIES PRESENT?YES EMOTIONAL BARRIERS?NO SPECIAL DEVICES?NO 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 MARITAL STATUS: SINGLE. OTHERS AT HOME: CHILD, OTHER NON-RELATIVE. - WAS THE PROVIDER NOTIFIED OF ANY PERTINENT INFO?YES N/A HAS THE PATIENT BEEN EDUCATED REGARDING HIS/HER PLAN OF CARE?YES HAS THE PATIENT BEEN EDUCATED REGARDING PAIN, THE RISK FOR PAIN, THE IMPORTANCE OF EFFECTIVE PAIN MANAGEMENT, AND THE PAIN ASSESSMENT PROCESS?YES ADVANCE DIRECTIVE ADVANCE DIRECTIVE DISCUSSED WITH PATIENT:YES HCP VIGNESH HERRON [phone] REVIEW OF SYSTEMS GLAUCOMA: NOTHYROID DISEASE: NOHYPERTENSION: YESHEART DISEASE: NOLUNG DISEASE: NODIABETES: NOGI DISEASE: NO LIVER DISEASE: NO KIDNEY DISEASE: NOSTERIOD USE: NONEUROLOGICAL DISEASE: NOBACK PROBLEMS: YES, PAINEXTREMITIES: YES, PAINGENITOURINARY: NOBLEEDING DISORDER: NOASA CLASS: [id number] CLASS: II. VITAL SIGNS WT 195 LBS, HT 67 IN, BMI 30.54 INDEX, BP 116/80 MM HG, HR 90 /MIN, RR 18 /MIN, TEMP 98.2 F, OXYGEN SAT % 99%, SAFE IN ENV? (Y/N) Y, NA INITIALS SD 09:52, REVIEWED BY: EM. EXAMINATION GENERAL EXAMINATION: THE PATIENT IS ALERT, ORIENTED TIMES THREE AND COOPERATIVE. LUNGS ARE CLEAR TO AUSCULTATION. HEART SHOWS REGULAR RHYTHM, NO MURMURS AND NO GALLOPS. THE LEFT LEG IS WEAKER THAN THE RIGHT LEG ON FLEXION AND EXTENSION. STRAIGHT LEG RAISE IS POSITIVE FOR RADICULOPATHY ON THE LEFT AT 20 DEGREES. MRI OF THE LUMBOSACRAL SPINE DATED 08/08/2018 SHOWS A BULGING DISC ON THE LEFT AT L4-L5, THERE IS A DISC PROTRUSION AT L5-S1. ASSESSMENTS INTERVERTEBRAL DISC DISORDERS WITH RADICULOPATHY, LUMBAR REGION - M51.16 (PRIMARY) TREATMENT INTERVERTEBRAL DISC DISORDERS WITH RADICULOPATHY, LUMBAR REGION IV LACTATED RINGER'S AT KVO (ORDERED FOR 10/10/2020) OXYGEN AT 2 LITERS PER NASAL CANNULA (ORDERED FOR 10/10/2020) MED: VERSED 1MG IV MIDAZOLAM (ORDERED FOR 10/10/2020) MEDICATION: FENTANYL CITRATE 50MCG IV (ORDERED FOR 10/10/2020) NOTES: TRANSFORAMINAL EPIDURAL STEROID INJECTION TEACHING SHEET PRINTED AND REVIEWED WITH PT. EM. CLINICAL NOTES: I DISCUSSED ALTERNATIVES WITH MS. LAI. WE AGREE ON DOING A LEFT TRANSFORAMINAL EPIDURAL STEROID INJECTION L4-L5, L5-S1 WITH IV SEDATION DUE TO ANXIETY AND DISCOMFORT ASSOCIATED WITH THE PROCEDURE. THE PATIENT REPORTS UNDERSTANDING AND AGREES WITH THE PLAN. I, KRISTA SANTAMARIA, DOCUMENTED THE ABOVE INFORMATION ACTING A SCRIBE FOR DR. QUIROGA. I HAVE REVIEWED THE ABOVE DOCUMENT, WRITTEN BY KRISTA SANTAMARIA, INTERNATIONAL NURSE, AND I VERIFY THAT IT IS ACCURATE. [facility] RE[facility]ON:LOW BACK AND LEG PAIN OTHERS [facility]:LOW BACK AND LEG PAIN PROCEDURE CODES FA211 ESTABILISHED PATIENT [facility] [id number] OFFICE/OUTPATIENT VISIT EST DISPOSITION & COMMUNICATION FOLLOW UP OKAY TO BOOK (REASON: LEFT TRANSFORAMINAL EPIDURAL STEROID INJECTION L4-L5, L5-S1) ELECTRONICALLY SIGNED BY CATHY QUIROGA MD, MD ON 09/13/2020 AT 04:39 PM EST DISCLAIMER : THIS IS A VISIT SUMMARY EXTRACTED FROM THE [facility] CHART. IT IS NOT A COPY OF THE [facility] PROGRESS NOTE. MTDD
== END ==
LOC: M PAIN 10:15
PROVIDERS: ATTEND Anesthesiology
DX: M51.16 Intervertebral disc disorders with radiculopathy, lumbar region (principal); G43.909 Migraine, unspecified, not intractable, without status migrainosus; I10 Essential (primary) hypertension; Z87.891 Personal history of nicotine dependence; Z91.048 Other nonmedicinal substance allergy status

== ENCOUNTER → 2020-09-10 | Outpatient (CLI) | payer OTHER | LOC: M LABSMTC 10:14 | PROVIDERS: ATTEND Anesthesiology | DX: Z01.812 Encounter for preprocedural laboratory examination (principal); Z20.822 Contact with and (suspected) exposure to COVID-19 ==

== ENCOUNTER → 2020-09-15 | Outpatient (CLI) | payer OTHER ==
[~2020-09-15] MED LIST changes: +BUPIVACAINE HCL 0.25% 30ML VIAL As Ordered ONE; +ISOVUE-M 300 61% 15ML VIAL As Ordered ONE; +LIDOCAINE 1% SDV 30ML VIAL As Ordered ONE; +MIDAZOLAM INJ 2MG/2ML VIAL (J2250 PER 1MG) As Ordered ONE; +dexameTHASONE 10MG/1ML VIAL PRES.FREE (J1100 PER 1MG) As Ordered ONE; +fentaNYL 100 MCG/2 ML INJECTION (J3010) As Ordered ONE
--- NOTE | 2020-09-15 10:57 | REP ---
INDICATION: LEFT TRANSFORAMINAL. COMPARISON: None. TECHNIQUE: Multiple C-arm views lower lumbar spine. FINDINGS: [place] are seen along the lower lumbar spine. A small amount of contrast is injected. IMPRESSION: 134 seconds fluoroscopy time utilized. <Electronically signed by Marcellus Mcintosh > 09/15/20 1054
--- NOTE | 2020-09-16 01:36 | ECWPNPC ---
PATIENT NAME: MIKE LAI : 1980 GENDER: FEMALE VISIT DATE: 09/15/2020 DISCHARGE DATE: 09/15/20 1055 VISIT LOCKED DATE TIME: PHYSICIAN: CATHY QUIROGA MD PHYSICIAN PAGER NO: ACTIVE RESOURCE: CATHY QUIROGA MD REASON FOR APPOINTMENT 1. LEFT TRANSFORAMINAL EPIDURAL STEROID INJECTION L4-L5, L5-S1 HISTORY OF PRESENT ILLNESS PAIN CENTER INTAKE QUESTIONS: DO YOU HAVE A HISTORY OF MRSA? :NO DO YOU TAKE A BLOOD THINNERS? :NO DO YOU HAVE ANY BLEEDING DISORDERS? :NO ANY NEW NUMBNESS OR WEAKNESS IN YOUR LEGS OR ARMS? :NO ANY PACEMAKER,DEFIBRILLATOR, OR DORSAL COLUMN STIMULATOR? :NO DO YOU HAVE ANY RASHES OR OPEN SORES? :NO ARE YOU ALLERGIC TO IV DYE? :NO ARE YOU DIABETIC? :NO ANY NEW PROBLEMS WITH YOUR MEDICATIONS? :NO HAVE YOU RECEIVED A VACCINE IN THE PAST 30 DAYS? :NO DO YOU PLAN TO RECEIVE A VACCINE IN THE NEXT 21 DAYS? :NO DO YOU TAKE ANY IMMUNOSUPPRESSIVE MEDICATIONS? :NO ANY HISTORY OF SEIZURES? :NO ANY HISTORY OF CARDIAC ISSUES OR EVENTS? :NO DO YOU HAVE ANY KIDNEY OR LIVER DISEASE? :NO DO YOU HAVE SLEEP APNEA? :NO ANY RECENT HEAD INJURY? :NO DO YOU HAVE ANY NEW INFECTIONS? :NO IS THERE A CHANCE YOU COULD BE ? :NO ARE YOU BREAST FEEDING? :NO WHEN DID YOU LAST EAT? : -LAST NIGHT WHEN DID YOU LAST DRINK? : -LAST NIGHT AT MIDNIGHT WHAT DID YOU LAST DRINK? : -WATER NAME OF PERSON DRIVING YOU HOME? : -VIGNESH DO YOU HAVE ANY OTHER QUESTIONS OR CONCERNS? : - GENERAL: -. FALL RISK SCREENING: SCREENING : NO FALLS REPORTED IN THE LAST YEAR. PAIN SCREENING: PATIENT HAS A COMPLAINT OF ACUTE OR CHRONIC PAIN :NO NURSING NOTE: -. CURRENT MEDICATIONS TAKING EXCEDRIN MIGRAINE 250-250-65 MG TABLET 2 TABLETS NEEDED ORALLY EVERY 6 HRS TAKING PANTOPRAZOLE SODIUM 20 MG TABLET DELAYED RELEASE 1 TABLET ORALLY ONCE A DAY TAKING AZELASTINE HCL 0.1 % SOLUTION 1 PUFF IN EACH NOSTRIL NASALLY TWICE A DAY TAKING LISINOPRIL-HYDROCHLOROTHIAZIDE 10-12.5 MG TABLET 1 TABLET ORALLY ONCE A DAY TAKING HYDROCODONE-ACETAMINOPHEN 7.5-325 MG TABLET 1 TABLET NEEDED ORALLY Q6H PRN MDD4 MEDICATION LIST REVIEWED AND RECONCILED WITH THE PATIENT PAST MEDICAL HISTORY TENDONITIS- RAUL KNEE MIGRAINES URINARY STRESS INCONTINENCE ANXIETY, ?PTSD HISTORY OF TOBACCO USE DYSPEPSIA GRANADOS BILATERAL CARPAL TUNNEL SYNDROME CHRONIC BACK PAIN, 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 (Y/N) YES, NA INITIALS SC 08:30, REVIEWED BY: KG. EXAMINATION GENERAL EXAMINATION: A HISTORY AND PHYSICAL EXAM ON THE PATIENT WAS DONE ON 09/09/2020 (DATE OF ORIGINAL ASSESSMENT) IN PREPARATION OF SURGERY/PROCEDURE. I HAVE NOW REASSESSED THIS PATIENT'S HEALTH STATUS AND PERFORMED AN UPDATED EXAM TODAY. ALL CHANGES IN THE PATIENT'S HISTORY, PHYSICAL EXAM, PRE-EXISTING CONDITONS, AND INDICATIONS/CONTRAINDICATIONS TO THE PLANNED PROCEDURE AND ANESTHESIA ARE DOCUMENTED AND EVALUATED BELOW. I ATTEST TO THE ADEQUACY AND APPROPRIATENESS OF MY ASSESSMENT, AND CONFIRM THE NECESSITY FOR THE PLANNED PROCEDURE. THE PATIENT IS ALERT, ORIENTED TIMES THREE AND COOPERATIVE. LUNGS ARE CLEAR TO AUSCULTATION. HEART SHOWS REGULAR RHYTHM, NO MURMURS AND NO GALLOPS. ASSESSMENTS INTERVERTEBRAL DISC DISORDERS WITH RADICULOPATHY, LUMBAR REGION - M51.16 (PRIMARY) TREATMENT INTERVERTEBRAL DISC DISORDERS WITH RADICULOPATHY, LUMBAR REGION [facility] FLUORO GUIDE SPINE INJECTION (PAIN)[id number] MEDICATION: FENTANYL CITRATE 25MCG KRISTA CALI 09/15/2020 09:42:05 AM - SECOND DOSE ORDERED, VERIFIED WITH KRISTA LR 09/15/2020 09:47:50 AM - THIRD DOSE ORDERED, VERIFIED WITH KRISTA LR 09/15/2020 09:55:03 AM - FOURTH DOSE ORDERED, VERIFIED WITH KRISTA LR 09/15/2020 10:10:23 AM - FIFTH DOSE ORDERED, VERIFIED WITH KRISTA LR 09/15/2020 10:16:08 AM - SIXTH DOSE ORDERED, VERIFIED WITH RENATA LEE 09/15/2020 10:20:58 AM > FIRST DOSE GIVEN AT 0939, SECOND DOSE GIVEN AT 0942, THIRD DOSE GIVEN AT 0948, FOURTH DOSE GIVEN AT 0955, FIFTH DOSE GIVEN AT 1010, SIXTH DOSE GIVEN AT 1016. TOTAL OF FENTANYL GIVEN 200 MCG, SEE OTHER FENTANYL ORDER. COMPLETION OF PROCEDURAL VISIT WHEN MEETS CRITERIA MED: VERSED 1MG IV MIDAZOLAMGISELA CADE 09/15/2020 8:37:13 AM > VERIFIED. KRISTA SANTAMARIA 09/15/2020 09:44:32 AM - SECOND DOSE ORDERED, VERIFIED WITH KRISTA LR 09/15/2020 09:53:49 AM - THIRD DOSE ORDERED, VERIFIED WITH KRISTA LR 09/15/2020 10:03:29 AM - FOURTH DOSE ORDERED, VERIFIED WITH RENATA LEE 09/15/2020 10:18:55 AM > FIRST DOSE GIVEN AT 0938, SECOND DOSE GIVEN AT 0945, THIRD DOSE GIVEN AT 0954, FOURTH DOSE GIVEN AT 1003. TOTAL OF 4MG GIVEN. MEDICATION: FENTANYL CITRATE 50MCG IV GISELA CADE 09/15/2020 8:37:40 AM > VERIFIED. KRISTA SANTAMARIA 09/15/2020 10:04:51 AM - SECOND DOSE ORDERED, VERIFIED WITH KRISTA LR 09/15/2020 10:14:50 AM - SECOND DOSE CANCELED DEB LUCASGAIL R 09/15/2020 10:21:48 AM > GIVEN AT 0945 OXYGEN AT 2 LITERS PER NASAL CANNULAPETRASRENATA R 09/15/2020 10:26:18 AM > 02 ON AT 0916. 02 OFF AT 1020. IV LACTATED RINGER'S AT KVOPETRASDEBRENATA R 09/15/2020 8:33:57 AM > 20G PLACED IN LEFT UPPER ARM. FLASH PRESENT, FLUSHING WELL. LR STARTED AT KVO PER ORDER. DEB LUCASGAIL R 09/15/2020 10:23:51 AM > 500ML LR INFUSED TOTAL OTHERS NOTES: 09/14/20 1635 UNABLE TO REACH PT. FOR PRE-PROCEDURE CALL. Татьяна NIELSEN RN. PROCEDURES PAIN NURSING RECORD PROCEDURE IN ROOM 0916, PHYSICIAN IN ROOM 0936, START 0942, FINISH 1013, PHYSICIAN OUT OF ROOM 1016, OUT OF ROOM 1026, ECG NORMAL SINUS, PATIENT SHIELDED YES, SAFETY STRAP NO, PREP BETADINE GISELA SYVER, DRESSING TEGADERM DR QUIROGA LOC: 1. ALERT, ORIENTED KASIE MORTON 09/15/2020 9:28:59 AM > RESP: 1. REGULAR, NO DYSPNEA KASIE MORTON 09/15/2020 9:29:06 AM > COLOR: 1. PINK KASIE MORTON 09/15/2020 9:29:12 AM > SKIN: 1. WARM, DRY KASIE MORTON 09/15/2020 9:29:17 AM > POSITION: 1. PRONE KASIE MORTON 09/15/2020 9:34:34 AM > VITALS: 0920 1114/68 67 100% 100 ON 2 LITERS 20 0935 121/74 63 100% ON 2 LITERS RESP 20 0940 126/84 63 100% ON 2 LITERS RESP 20 0945 119/78 70 100 % ON 2 LITERS RESP 20 0950 108/71 70 100 % ON 2 LITERS RESP 22 0132802/57 64 98% ON 2 LITER 20 RESP 1000 107/59 65 100% ON 2 LITERS 20 RESP 1005 107/59 66 100 ON 2 LITER 18 RESPIRATIONS [id number]/59 66 100 ON 2 LITERS 20 [id number]/57 64 98 % ON ROOM AIR RESPIRATIONS 20 POST PROCEDURE 1030 132/66 67 97% ON RA 18 RESPIRATIONS PT IS A BIT SLEEPY BUT RESPONDS APPROPRIATELY TO QUESTIONS KASIE MORTON 09/15/2020 10:37:36 AM > NOTES Zaheer MORTON RN PT BROUGHT OUT OF PROCEDURE ROOM VIA STRETCHER CALL LIGHT WITHI REACH AND CALLING FOR HER RIDE. COMPLETION OF PROCEDURE APPOINTMENT: POST PAIN 0, DRESSING SITE DRY AND INTACT, IV DISCONTINUED, SITE CLEAR, CATHETER INTACT, GAIT STEADY, TEACHING COMPLETED, PATIENT ACKNOWLEDGES UNDERSTANDING YES, PROCEDURE APPOINTMENT COMPLETED AT 1050 PN LUMBAR TRANSFORAMINAL BLOCKS PRE PROCEDURE DIAGNOSIS LUMBAR DISC DISORDER WITH RADICULOPATHY POST PROCEDURE DIAGNOSIS LUMBAR DISC DISORDER WITH RADICULOPATHY PROCEDURE LEFT L4-L5 AND LEFT L5-S1 TRANSFORAMINAL EPIDURAL STEROID INJECTION UNDER FLUOROSCOPIC GUIDANCE SURGEON DR CATHY QUIROGA ADMISSIONS ADVISOR NONE ANESTHESIA LOCAL WITH IV SEDATION PRE PROCEDURE NOTE THE PATIENT WITH HISTORY OF CHRONIC LOW BACK PAIN. I EVALUATED THE PATIENT AND REVIEWED THE CHART. I WENT OVER THE RISKS, ALTERNATIVES, AND BENEFITS ASSOCIATED WITH THIS PROCEDURE. THE PATIENT WOULD LIKE TO PROCEED AND GIVE CONSENT TO PERFORMED THE PROCEDURE. THE PATIENT WOULD LIKE TO MOVE FORWARD WITH IV SEDATION DUE TO ANXIETY AND DISCOMFORT ASSOCIATED WITH THE PROCEDURE. THE PATIENT DENIES UNEXPLAINABLE WEIGHT LOSS, FEVER, CHILLS, OR CHANGES IN URINARY OR BOWEL CONTROL. THE PATIENT IS COVID-19 NEGATIVE DESCRIPTION OF PROCEDURE THE PATIENT WAS BROUGHT TO THE PROCEDURE ROOM AND PLACED IN THE PRONE POSITION. THE LUMBOSACRAL AREA WAS CLEANED WITH BETADINE SOLUTION AND DRAPED ASEPTICALLY. THE PROCEDURE WAS DONE UNDER STERILE CONDITIONS. A TIMEOUT WAS PERFORMED WHERE THE CONSENTED SITE WAS VERIFIED WITH EVERYONE IN THE ROOM. UNDER FLUOROSCOPIC GUIDANCE, THE TARGET POINT WAS SELECTED AT THE LEFT TRANSFORAMINAL OPENING OF L4 AND LEFT TRANSFORAMINAL OPENING OF L5. TARGET POINT WAS SELECTED AFTER LATERAL ROTATION AND TILT OF THE MAGNIFIER OF THE C-ARM. I CONFIRMED AGAIN THE SITE OF TARGET. LIDOCAINE 0.5% WAS USED TO NUMB THE SKIN AND THE SUBCUTANEOUS TISSUE BELOW IT. AN EPIMED INTRODUCER, 18-GAUGE, WAS ADVANCED UNTIL I WENT CLOSE TO THE SELECTED TRANSFORAMINAL OPENINGS. AFTER PROPER POSITION OF THE NEEDLES WAS ACHIEVED, A 22-GAUGE, EPIMED NEEDLE, WAS PLACED INSIDE OF THE INTRODUCER AND ADVANCED TO THE TRANSFORAMINAL OPENING OF THE SELECTED SITES. WHEN PROPER POSITION OF THE NEEDLE WAS ACHIEVED, ISOVUE-M DYE 30%, 0.25 ML, WAS INJECTED SHOWING ADEQUATE SPREAD OF THE DYE. THIS WAS DONE UNDER DIGITAL SUBTRACTION AND ANGIOGRAPHY. THERE WAS NO VASCULAR UPDATE. THEN, A SOLUTION OF 2 ML OF BUPIVACAINE 0.25% AND DEXAMETHASONE 5 MG WAS INJECTED AT EACH SITE. THE MEDICATION WAS VERIFIED WITH THE NURSE. THERE WAS NO EVIDENCE OF BLOOD, PARESTHESIA OR CEREBROSPINAL FLUID DURING THE PROCEDURE. THE PATIENT WAS SENT TO THE RECOVERY ROOM. THE PATIENT WAS MOVING THE EXTREMITIES AND DOING WELL. THERE WAS NO COMPLICATION DURING THE PROCEDURE. ESTIMATED BLOOD LOSS WAS LESS THAN 5 ML. FLUOROSCOPY TIME WAS 2 MINUTES AND 15 SECONDS. THE PATIENT RECEIVED VERSED 4 MG AND FENTANYL 200 MCG IV IN DIVIDED DOSES. FACE TO FACE START TIME: 937 FACE TO FACE END TIME: 1016 TOTAL FACE TO FACE TIME: 36 MINUTES POST PROCEDURE NOTE THE PROCEDURE DONE WAS DISCUSSED WITH THE PATIENT. THE PATIENT WILL BE SEEN IN A FOLLOW UP IN THE NEXT FEW WEEKS. I AM LOOKING FOR LONG LASTING PAIN RELIEF FOR THE PATIENT WITH THIS INTERVENTION. INSTRUCTIONS WERE GIVEN, QUESTIONS WERE ANSWERED, AND THE PATIENT EXPRESSED UNDERSTANDING AND AGREES WITH THE PLAN. I, KRISTA SANTAMARIA, DOCUMENTED THE ABOVE INFORMATION ACTING A SCRIBE FOR DR. QUIROGA. I HAVE REVIEWED THE ABOVE DOCUMENT, WRITTEN BY KRISTA SANTAMARIA, SALESPERSON SEWING MACHINES, AND I VERIFY THAT IT IS ACCURATE PROCEDURE CODES 41828 INJ FORAMEN EPIDURAL L/S, [place]: [place] [address] INJ FORAMEN EPIDURAL [place], [place] [address] MOD SED SAME PHYS/QHP 5/>YRS 33699 MOD SED SAME PHYS/QHP EA DISPOSITION & COMMUNICATION FOLLOW UP FOLLOW UP WITH DR. QUIROGA (REASON: POST LEFT TRANSFORAMINAL EPIDURAL STEROID INJECTION L4-L5, L5-S1) ELECTRONICALLY SIGNED BY CATHY QUIROGA MD, MD ON 09/15/2020 AT 11:41 AM EST DISCLAIMER : THIS IS A VISIT SUMMARY EXTRACTED FROM THE [employer] CHART. IT IS NOT A COPY OF THE [employer] PROGRESS NOTE. MTDD
== END ==
LOC: M PAIN 08:30
PROVIDERS: ATTEND Anesthesiology
DX: M51.16 Intervertebral disc disorders with radiculopathy, lumbar region (principal); G43.909 Migraine, unspecified, not intractable, without status migrainosus; F41.9 Anxiety disorder, unspecified; K75.81 Nonalcoholic steatohepatitis (NASH); I10 Essential (primary) hypertension; N39.3 Stress incontinence (female) (male); Z79.891 Long term (current) use of opiate analgesic; Z79.899 Other long term (current) drug therapy; Z91.048 Other nonmedicinal substance allergy status
CPT/HCPCS: 64483; 64484; 99152; 99153; J1100; J2250; J3010; Q9967

== ENCOUNTER → 2020-09-29 | Outpatient (CLI) | payer OTHER ==
[~2020-09-29] MED LIST changes: -BUPIVACAINE HCL 0.25% 30ML VIAL As Ordered ONE; -ISOVUE-M 300 61% 15ML VIAL As Ordered ONE; -LIDOCAINE 1% SDV 30ML VIAL As Ordered ONE; -MIDAZOLAM INJ 2MG/2ML VIAL (J2250 PER 1MG) As Ordered ONE; -dexameTHASONE 10MG/1ML VIAL PRES.FREE (J1100 PER 1MG) As Ordered ONE; -fentaNYL 100 MCG/2 ML INJECTION (J3010) As Ordered ONE
--- NOTE | 2020-10-01 00:20 | ECWPNPC ---
PATIENT NAME: MIKE LAI : 1980 GENDER: FEMALE VISIT DATE: 09/29/2020 DISCHARGE DATE: 09/29/20 1607 VISIT LOCKED DATE TIME: PHYSICIAN: CATHY QUIROGA MD PHYSICIAN PAGER NO: ACTIVE RESOURCE: CATHY QUIROGA MD REASON FOR APPOINTMENT 1. POST LEFT TRANSFORAMINAL EPIDURAL STEROID INJECTION L4-L5, L5-S1 HISTORY OF PRESENT ILLNESS GENERAL: 40 YEAR-OLD FEMALE PATIENT WITH A HISTORY OF CHRONIC LOW BACK AND BILATERAL LEG PAIN. THE PATIENT DESCRIBES THE PAIN ACHING AND STABBING ON OCCASION WITH A PAIN SCORE RANGING FROM 2-8/10. SHE DID AN EPIDURAL THAT THE PATIENT FEELS HELPED HER OVER THE LEFT SIDE. TODAY, SHE HAS A PAIN SCORE OF 2/10. WHEN THE PAIN IS MORE SEVERE, SHE NOTICES THE PAIN IS MORE TOWARDS THE LEFT SIDE AND TOWARDS THE BACK OF THE LEFT LEG WITH SOME NUMBNESS THAT GOES TO THE TOES. THE PATIENT IS USING MEDICATION AT OUR FACILITY. PAIN CENTER INTAKE QUESTIONS: DO YOU HAVE A HISTORY OF MRSA? :NO DO YOU TAKE A BLOOD THINNERS? :NO DO YOU HAVE ANY BLEEDING DISORDERS? :NO ANY NEW NUMBNESS OR WEAKNESS IN YOUR LEGS OR ARMS? :NO ANY PACEMAKER,DEFIBRILLATOR, OR DORSAL COLUMN STIMULATOR? :NO DO YOU HAVE ANY RASHES OR OPEN SORES? :NO ARE YOU ALLERGIC TO IV DYE? :NO ARE YOU DIABETIC? :NO ANY NEW PROBLEMS WITH YOUR MEDICATIONS? :NO HAVE YOU RECEIVED A VACCINE IN THE PAST 30 DAYS? :YES IF SO WHAT VACCINE AND WHEN? COVID VACCINE #1 TODAY DO YOU PLAN TO RECEIVE A VACCINE IN THE NEXT 21 DAYS? :YES IF SO WHAT VACCINE AND WHEN? COVID VACCINE #2 ON 10/27/20 DO YOU NEED ANY PRESCRIPTION? :NO DO YOU TAKE ANY IMMUNOSUPPRESSIVE MEDICATIONS? :NO DO YOU HAVE ANY KIDNEY OR LIVER DISEASE? :NO IS THERE A CHANCE YOU COULD BE ? :NO ARE YOU BREAST FEEDING? :NO FALL RISK SCREENING: SCREENING : NO FALLS REPORTED IN THE LAST YEAR. PAIN SCREENING: PATIENT HAS A COMPLAINT OF ACUTE OR CHRONIC PAIN :YES LOCATION OF PAIN:LOW BACK, LEG(S) LEFT>RIGHT INTENSITY OF PAIN (SCALE OF 1 TO 10):2 WHAT DOES YOUR PAIN FEEL LIKE:ACHING DURATION:CONTINOUS PAIN IS INCREASED BY:ACTIVITIES, PROLONGED STANDING, OTHERS DANGLING FEET, WORKING PAIN IS DECREASED BY:SITTING, OTHERS HEAT NURSING NOTE: -. CURRENT MEDICATIONS TAKING EXCEDRIN MIGRAINE 250-250-65 MG TABLET 2 TABLETS NEEDED ORALLY EVERY 6 HRS TAKING PANTOPRAZOLE SODIUM 20 MG TABLET DELAYED RELEASE 1 TABLET ORALLY ONCE A DAY TAKING AZELASTINE HCL 0.1 % SOLUTION 1 PUFF IN EACH NOSTRIL NASALLY TWICE A DAY TAKING HYDROCODONE-ACETAMINOPHEN 7.5-325 MG TABLET 1 TABLET NEEDED ORALLY Q6H PRN MDD4 TAKING LISINOPRIL-HYDROCHLOROTHIAZIDE 10-12.5 MG TABLET 1 TABLET ORALLY ONCE A DAY MEDICATION LIST REVIEWED AND RECONCILED WITH THE PATIENT PAST MEDICAL HISTORY TENDONITIS- RAUL KNEE MIGRAINES URINARY STRESS INCONTINENCE ANXIETY, ?PTSD HISTORY OF TOBACCO USE DYSPEPSIA GRANADOS BILATERAL CARPAL TUNNEL SYNDROME CHRONIC BACK PAIN, 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 HTN ALLERGIES GOLD: RASH - ALLERGY BLEACH: SMELL CAUSES NAUSEA/VOMITING, REDNESS AND SWELLING SOCIAL HISTORY GENERAL: TOBACCO USE ARE YOU A:FORMER SMOKER HOW LONG HAS IT BEEN SINCE YOU LAST SMOKED?1-5 YEARS SMOKING CESSATION INFORMATION GIVEN05/10/2017 LATEX QUESTIONNAIRE LATEX ALLERGY : HAVE YOU EVER DEVELOPED ANY TYPE OF REACTION AFTER HANDLING LATEX PRODUCTS SUCH RUBBER GLOVES, CONDOMS, DIAPHRAGMS, BALLOONS, SOCKS, OR UNDERWEAR?NO LATEX ALLERGY : HAVE YOU EVER DEVELOPED ANY TYPE OF REACTION DURING OR AFTER DENTAL APPOINTMENT, VAGINAL/RECTAL EXAMINATION, SURGICAL PROCEDURE, OR ANY OTHER EXPOSURE?NO LATEX RISK : HAVE YOU EVER HAD ANY DIFFICULTY BREATHING OR HIVES AFTER EATING OR HANDLING ANY FRUITS, OR VEGETABLES; SUCH KIWI, BANANAS, STONE FRUITS, OR CHESTNUTSNO LATEX RISK : DO YOU HAVE A PREVIOUS PERSONAL HISTORY OF MORE THAN NINE SURGERIES, SPINA BIFIDA, OR REPEATED CATHERIZATIONS? NO LATEX RISK : ARE YOU FREQUENTLY EXPOSED TO LATEX PRODUCTS IN YOUR OCCUPATION?NO DATE ASKED : 09/29/2020 ALCOHOL USE: NO. BMI CARE GOAL FOLLOW-UP ABOVE NORMAL BMI FOLLOW-UPDIETARY NEEDS EDUCATION ALCOHOL SCREENING DID YOU HAVE A DRINK CONTAINING ALCOHOL IN THE PAST YEAR?YES HOW OFTEN DID YOU HAVE SIX OR MORE DRINKS ON ONE OCCASION IN THE PAST YEAR?NEVER (0 POINTS) HOW MANY DRINKS DID YOU HAVE ON A TYPICAL DAY WHEN YOU WERE DRINKING IN THE PAST YEAR?1 OR 2 (0 POINTS) HOW OFTEN DID YOU HAVE A DRINK CONTAINING ALCOHOL IN THE PAST YEAR?MONTHLY OR LESS (1 POINT) POINTS1 INTERPRETATIONNEGATIVE RECREATIONAL DRUG USE DRUG USE?NO PATIENT DENIES ABUSE OR MISSUSED OF ANY MEDICATION. PATIENT DENIES USE OF ANY ILLEGAL SUBSTANCE INCLUDING MARIJUANA OR COCAINE. CAFFEINE CAFFEINE USE?YES HOW OFTEN AND HOW MUCH? 1-2 CUP SEXUAL HX HAD SEX IN THE LAST 12 MONTHS (VAGINAL, ORAL, OR ANAL)?YES WITHMEN ONLY PREVENTION STRATEGIES DISCUSSED:CONDOMS USE PROTECTION?NO LMP:08/29/2016 HAVE YOU EVER HAD AN STD?NO HIV / HEP-C SCREENING HIV TEST OFFERED TO PATIENT:YES DATE OFFERED:07/03/2016 TEST ACCEPTED:NO HEP-C TEST OFFERED TO PATIENT:YES DATE OFFERED:07/03/2016 REASON:PATIENT DECLINED TEST ACCEPTED:NO REASON:PATIENT DECLINED PRESYBETERIAN [id number] NONE LANGUAGE LANGUAGES SPOKEN:MACEDONIAN EDUCATION LEVEL OF EDUCATION:NOT FINISHED COLLEGE LEARNING BARRIERS / SPECIAL NEEDS CHANGE FROM LAST VISIT?NO BARRIERS TO LEARNING?NO HEARING IMPAIRED?NO VISION IMPAIRED?YES :CORRECTIVE LENSES COGNITIVELY IMPAIRED?NO READINESS TO LEARN?YES LEARNING PREFERENCES?NO LEARNING CAPABILITIES PRESENT?YES EMOTIONAL BARRIERS?NO SPECIAL DEVICES?NO SERVICE COUNTER CASHIER NEEDED?NO 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 MARITAL STATUS: SINGLE. OTHERS AT HOME: CHILD, OTHER NON-RELATIVE. - WAS THE PROVIDER NOTIFIED OF ANY PERTINENT INFO?YES N/A HAS THE PATIENT BEEN EDUCATED REGARDING HIS/HER PLAN OF CARE?YES HAS THE PATIENT BEEN EDUCATED REGARDING PAIN, THE RISK FOR PAIN, THE IMPORTANCE OF EFFECTIVE PAIN MANAGEMENT, AND THE PAIN ASSESSMENT PROCESS?YES ADVANCE DIRECTIVE ADVANCE DIRECTIVE DISCUSSED WITH PATIENT:YES HCP VIGNESH HERRON [phone] REVIEW OF SYSTEMS CONSTITUTIONAL: ANY RECENT FEVER NO . CHILLS NO . WEIGHT CHANGE OF UNKNOWN REASONS NO . GASTROENTEROLOGY: NEW UNEXPLAINABLE CHANGES IN BOWEL CONTROL NO . CONSTIPATION NO . GENITOURINARY: ANY NEW CHANGE IN BLADDER CONTROL? NO . NEUROLOGY: NEW ONSET DIZZINESS OR NEUROLOGICAL CHANGES NOT MENTIONED NO . NEW NUMBNESS OR PAIN PATTERNS NOT MENTIONED AND PERTINENT TO TODAY'S VISIT NO . CARDIOLOGY: NEW CHEST PRESSURE NO . PATIENT DENIES NO . RESPIRATORY: UNEXPLAINABLE COUGH NO . NEW SHORTNESS OF BREATH NO . VITAL SIGNS WT 196.4 LBS, HT 67 IN, BMI 30.76 INDEX, BP 123/84 MM HG, HR 93 /MIN, RR 18 /MIN, TEMP 97.6 F, OXYGEN SAT % 97%, SAFE IN ENV? (Y/N) YES, NA INITIALS AR 14:51, REVIEWED BY: Nona CADE RN. EXAMINATION GENERAL EXAMINATION: THE PATIENT IS ALERT, ORIENTED TIMES THREE AND COOPERATIVE. LUNGS ARE CLEAR TO AUSCULTATION. HEART SHOWS REGULAR RHYTHM, NO MURMURS AND NO GALLOPS. THE PATIENT SEEMS TO BE LIMPING FROM THE LEFT SIDE BUT IT IS VERY SUBTLE. STRAIGHT LEG RAISE IS POSITIVE FOR RADICULOPATHY ON BOTH LEGS AT 60 DEGREES. MRI OF THE LUMBOSACRAL SPINE DATED 08/20/2018 SHOWS A BULGING DISC AT L4-L5 AND ALSO DISC PROTRUSION AT L5-S1. AT L4-L5, IT ABUTS THE LEFT L4 NERVE. ASSESSMENTS OTHER CHRONIC PAIN - G89.29 (PRIMARY) INTERVERTEBRAL DISC DISORDERS WITH RADICULOPATHY, LUMBAR REGION - M51.16 LUMBAR RADICULOPATHY - M54.16 TREATMENT OTHER CHRONIC PAIN PAIN PROCEDURE LOGDATE OF XRIUSGVOU09/11/2021PROCEDURE:LEFT TRANSFORAMINAL EPIDURAL STEROID INJECTION WITH IV SEDATIONAMOUNT OF PRE SEDATEFENTANYL-TOTAL DOSE OF 200MCG, VERSED TOTAL DOSE OF4 MGSRESULT:WORKED WELL, PAIN 2/10 POST PROCEDURE INTERVERTEBRAL DISC DISORDERS WITH RADICULOPATHY, LUMBAR REGION CLINICAL NOTES: I DISCUSSED ALTERNATIVES WITH MS. LAI. SHE SEEMS TO BE RESPONDING TO EPIDURALS, BUT THE PATIENT WANTS TO KNOW ABOUT POSSIBLE ALTERNATIVES. SO I WILL SEND HER TO A SPINE SURGEON FOR THEIR OPINION. WE HAD A DISCUSSION ABOUT THE VERTIFLEX PROCEDURE, BUT I WOULD REALLY LIKE TO REVIEW THE FILMS OF THE MRI AND TALK TO THE RADIOLOGIST ABOUT THIS PATIENT. FOR NOW, THE PATIENT WILL FOLLOW UP WITH THE NURSE PRACTITIONER FOR MEDICATION MANAGEMENT. WHEN I HAVE MORE INFORMATION, I WILL SEE MIKE AGAIN IN MY CLINIC TO DISCUSS SURGICAL OR INTERNATIONAL OPTIONS. THE PATIENT REPORTS UNDERSTANDING AND AGREES WITH THE PLAN. I, KRISTA SANTAMARIA, DOCUMENTED THE ABOVE INFORMATION ACTING A SCRIBE FOR DR. QUIROGA. I HAVE REVIEWED THE ABOVE DOCUMENT, WRITTEN BY KRISTA SANTAMARIA, BRICKLAYER SEWER, AND I VERIFY THAT IT IS ACCURATE. PROCEDURE CODES FA211 ESTABILISHED PATIENT [facility] FACILITY CHARGE [id number] OFFICE/OUTPATIENT VISIT EST DISPOSITION & COMMUNICATION FOLLOW UP FOLLOW UP WITH SOLUTION SPEC (REASON: MEDICATION MANAGEMENT) ELECTRONICALLY SIGNED BY CATHY QUIROGA MD, MD ON 09/30/2020 AT 12:44 PM EDT DISCLAIMER : THIS IS A VISIT SUMMARY EXTRACTED FROM THE [employer] CHART. IT IS NOT A COPY OF THE [employer] PROGRESS NOTE. STANLEYD
== END ==
LOC: M PAIN 15:00
PROVIDERS: ATTEND Anesthesiology
DX: G89.29 Other chronic pain (principal); M51.16 Intervertebral disc disorders with radiculopathy, lumbar region; G43.909 Migraine, unspecified, not intractable, without status migrainosus; F41.9 Anxiety disorder, unspecified; I10 Essential (primary) hypertension; R10.13 Epigastric pain; G56.03 Carpal tunnel syndrome, bilateral upper limbs; Z87.891 Personal history of nicotine dependence; Z91.048 Other nonmedicinal substance allergy status; Z79.891 Long term (current) use of opiate analgesic; Z79.899 Other long term (current) drug therapy

== ENCOUNTER → 2020-11-07 | Outpatient (CLI) | payer OTHER ==
--- NOTE | 2020-11-07 09:21 | REP ---
INDICATION: LBP. The patient reports chronic low back pain radiating down both lower extremities. COMPARISON: Comparison MRI study 20 August 2018.. TECHNIQUE: Sagittal and axial T1 and T2-weighted scans are acquired in the usual fashion with and without fat saturation. Sequences include spin echo, turbo spin-echo, and STIR imaging sequences. FINDINGS: Lumbar vertebral body heights are preserved and alignment is normal. There is no evidence of spondylolysis or spondylolisthesis. No extra vertebral abnormality is seen. The tip of the conus medullaris is normal in position and appearance at L1. There is degenerative disc disease at T11-12 and a central focal disc protrusion is seen contacting the ventral margin of the cord at this level unchanged. The T12-L1 disc level is unremarkable. At L1-L2, there is no evidence of disc protrusion, central canal stenosis, or foraminal narrowing. At L2-L3, there is no abnormality. At L3-L4, there is minimal facet and ligamentum flavum hypertrophy. No disc narrowing is seen. No disc protrusion spinal stenosis or foraminal narrowing is observed. At L4-5, there is degenerative mild disc narrowing and decreased signal intensity. Previously noted left foraminal disc protrusion is subtle but felt to be unchanged contacting the adjacent root in the distal foramen. No new disc protrusion is seen. No central canal stenosis is seen. Minimal facet and ligamentum flavum hypertrophy is present. At L5-S1, there is a central focal disc protrusion which contacts the ventral margin of the thecal sac. No nerve root displacement or compression is appreciated. Facet hypertrophy is present bilaterally mild in degree. No neural foraminal encroachment is appreciated. IMPRESSION: Degenerative disc disease changes at L4-5 and L5-S1. Small left foraminal L4-5 disc protrusion is unchanged. Central focal disc protrusion at L5-S1 is unchanged. There is mild facet hypertrophy at the lower 3 levels. A disc protrusion is noted in the T11-12 disc at the top of the field of view unchanged. <Electronically signed by Iggy Langston > 11/07/20 9372
== END ==
LOC: M RAD 07:35
PROVIDERS: ATTEND Orthopaedic Surgery
DX: M54.5 Low back pain (principal)

== ENCOUNTER → 2020-11-08 | Outpatient (CLI) | payer OTHER ==
--- NOTE | 2020-11-10 05:22 | ECWPNPC ---
PATIENT NAME: MIKE LAI : 1980 GENDER: FEMALE VISIT DATE: 11/08/2020 DISCHARGE DATE: 11/08/20947 VISIT LOCKED DATE TIME: PHYSICIAN: SABIHA BERNARDO PHYSICIAN PAGER NO: ACTIVE RESOURCE: SABIHA BERNARDO REASON FOR APPOINTMENT 1. LOW BACK/MED MGMNT HISTORY OF PRESENT ILLNESS GENERAL: HERE FOR FOLLOW-UP OF CHRONIC BILATERAL LEG PAIN. SAW DR. QUIROGA LAST WEEK TO CONSIDER VERTIFLEX PROCEDURE. HE REFERRED HER TO [facility] IN [place] OF WHICH SHE HAD A VISIT AND HAD AN MRI OF THE LS-SPINE DONE. SHE HAS A FOLLOW-UP WITH THEM. THEY DID TELL HER THAT IF THERE IS NO CHANGE WITH MRI THAT THEY WOULD NOT RECOMMEND SURGERY. I BELIEVE DR. QUIROGA WANTS TO REVIEW MRI AND POSSIBLY REFER HER FOR A SECOND OPINION ON VERTIFLEX PROCEDURE OPTION. HE ALSO WANTED HER TO SEE ME FOR MEDICATION MANAGEMENT AND POSSIBLY DO A MORE AGGRESSIVE PLAN IN ATTEMPTS TO AVOID FREQUENT INJECTIONS WITH STEROIDS. DISCUSSED MEDICATION OPTIONS. PATIENT HAS ADVERSE REACTION OF NIGHTMARES WITH GABAPENTIN. DISCUSSED TRIAL OF CYMBALTA. DISCUSSED OPIOID ROTATION. WE HAVE DECIDED TO START WITH CYMBALTA 30 MG DAILY. ALSO SHE FEELS HYDROCODONE IS HELPFUL AT REDUCING PAIN BUT WHEN PAIN GETS OUT OF CONTROL PATIENT STATES NO MATTER HOW MUCH SHE WOULD TAKE OF HYDROCODONE OR ANY OTHER MEDICATIONS IT WOULD NOT HELP. CONTINUES TO WORK [employer] AND IS CONCERNED ABOUT SIDE EFFECTS OF DIFFERENT OPIOID PAIN MEDICATIONS. -. FALL RISK SCREENING: SCREENING : NO FALLS REPORTED IN THE LAST YEAR. PAIN SCREENING: PATIENT HAS A COMPLAINT OF ACUTE OR CHRONIC PAIN :YES LOCATION OF PAIN:LOW BACK INTENSITY OF PAIN (SCALE OF 1 TO 10):6 WHAT DOES YOUR PAIN FEEL LIKE:ACHING, INTERMITTENT DURATION:ONLY WITH SPECIFIC ACTIVITIES PAIN IS INCREASED BY:ACTIVITIES PAIN IS DECREASED BY:USE OF PAIN MEDICATIONS NURSING NOTE: -. PAIN CENTER INTAKE QUESTIONS: DO YOU HAVE A HISTORY OF MRSA? :NO DO YOU TAKE A BLOOD THINNERS? :NO DO YOU HAVE ANY BLEEDING DISORDERS? :NO ANY NEW NUMBNESS OR WEAKNESS IN YOUR LEGS OR ARMS? :NO FEELING IN ANKLE COULDNOT STAND ON LEG ANY PACEMAKER,DEFIBRILLATOR, OR DORSAL COLUMN STIMULATOR? :NO DO YOU HAVE ANY RASHES OR OPEN SORES? :NO ARE YOU ALLERGIC TO IV DYE? :NO ARE YOU DIABETIC? :NO ANY NEW PROBLEMS WITH YOUR MEDICATIONS? :NO HAVE YOU RECEIVED A VACCINE IN THE PAST 30 DAYS? :YES 2N COVID 10/27/2020 DO YOU PLAN TO RECEIVE A VACCINE IN THE NEXT 21 DAYS? :NO DO YOU NEED ANY PRESCRIPTION? :NO DO YOU TAKE ANY IMMUNOSUPPRESSIVE MEDICATIONS? :NO DO YOU HAVE ANY KIDNEY OR LIVER DISEASE? :NO IS THERE A CHANCE YOU COULD BE ? :NO ARE YOU BREAST FEEDING? :NO CURRENT MEDICATIONS TAKING EXCEDRIN MIGRAINE 250-250-65 MG TABLET 2 TABLETS NEEDED ORALLY EVERY 6 HRS TAKING PANTOPRAZOLE SODIUM 20 MG TABLET DELAYED RELEASE 1 TABLET ORALLY PRN TAKING AZELASTINE HCL 0.1 % SOLUTION 1 PUFF IN EACH NOSTRIL NASALLY TWICE A DAY TAKING HYDROCHLOROTHIAZIDE 12.5 MG TABLET 1 TABLET IN THE MORNING ORALLY ONCE A DAY TAKING LOSARTAN POTASSIUM 25 MG TABLET 1 TABLET ORALLY ONCE A DAY TAKING HYDROCODONE-ACETAMINOPHEN 7.5-325 MG TABLET 1 TABLET NEEDED ORALLY Q6H PRN MDD4 MEDICATION LIST REVIEWED AND RECONCILED WITH THE PATIENT PAST MEDICAL HISTORY TENDONITIS- RAUL KNEE MIGRAINES URINARY STRESS INCONTINENCE ANXIETY, ?PTSD HISTORY OF TOBACCO USE DYSPEPSIA GRANADOS BILATERAL CARPAL TUNNEL SYNDROME CHRONIC BACK PAIN, 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 HTN ALLERGIES GOLD: RASH - ALLERGY BLEACH: SMELL CAUSES NAUSEA/VOMITING, REDNESS AND SWELLING SEASONAL GABAPENTIN: VIVID DREAMS SOCIAL HISTORY GENERAL: TOBACCO USE ARE YOU A:FORMER SMOKER HOW LONG HAS IT BEEN SINCE YOU LAST SMOKED?1-5 YEARS SMOKING CESSATION INFORMATION GIVEN05/10/2017 LATEX QUESTIONNAIRE LATEX ALLERGY : HAVE YOU EVER DEVELOPED ANY TYPE OF REACTION AFTER HANDLING LATEX PRODUCTS SUCH RUBBER GLOVES, CONDOMS, DIAPHRAGMS, BALLOONS, SOCKS, OR UNDERWEAR?NO LATEX ALLERGY : HAVE YOU EVER DEVELOPED ANY TYPE OF REACTION DURING OR AFTER DENTAL APPOINTMENT, VAGINAL/RECTAL EXAMINATION, SURGICAL PROCEDURE, OR ANY OTHER EXPOSURE?NO LATEX RISK : HAVE YOU EVER HAD ANY DIFFICULTY BREATHING OR HIVES AFTER EATING OR HANDLING ANY FRUITS, OR VEGETABLES; SUCH KIWI, BANANAS, STONE FRUITS, OR CHESTNUTSNO LATEX RISK : DO YOU HAVE A PREVIOUS PERSONAL HISTORY OF MORE THAN NINE SURGERIES, SPINA BIFIDA, OR REPEATED CATHERIZATIONS? NO LATEX RISK : ARE YOU FREQUENTLY EXPOSED TO LATEX PRODUCTS IN YOUR OCCUPATION?NO DATE ASKED : 11/08/2020 ALCOHOL USE: NO. BMI CARE GOAL FOLLOW-UP ABOVE NORMAL BMI FOLLOW-UPDIETARY NEEDS EDUCATION ALCOHOL SCREENING DID YOU HAVE A DRINK CONTAINING ALCOHOL IN THE PAST YEAR?YES HOW OFTEN DID YOU HAVE SIX OR MORE DRINKS ON ONE OCCASION IN THE PAST YEAR?NEVER (0 POINTS) HOW MANY DRINKS DID YOU HAVE ON A TYPICAL DAY WHEN YOU WERE DRINKING IN THE PAST YEAR?1 OR 2 (0 POINTS) HOW OFTEN DID YOU HAVE A DRINK CONTAINING ALCOHOL IN THE PAST YEAR?MONTHLY OR LESS (1 POINT) POINTS1 INTERPRETATIONNEGATIVE RECREATIONAL DRUG USE DRUG USE?NO PATIENT DENIES ABUSE OR MISSUSED OF ANY MEDICATION. PATIENT DENIES USE OF ANY ILLEGAL SUBSTANCE INCLUDING MARIJUANA OR COCAINE. CAFFEINE CAFFEINE USE?YES HOW OFTEN AND HOW MUCH? 1-2 CUP SEXUAL HX HAD SEX IN THE LAST 12 MONTHS (VAGINAL, ORAL, OR ANAL)?YES WITHMEN ONLY PREVENTION STRATEGIES DISCUSSED:CONDOMS USE PROTECTION?NO LMP:08/29/2016 HAVE YOU EVER HAD AN STD?NO HIV / HEP-C SCREENING HIV TEST OFFERED TO PATIENT:YES DATE OFFERED:07/03/2016 TEST ACCEPTED:NO HEP-C TEST OFFERED TO PATIENT:YES DATE OFFERED:07/03/2016 REASON:PATIENT DECLINED TEST ACCEPTED:NO REASON:PATIENT DECLINED WORSHIP [id number] NONE LANGUAGE LANGUAGES SPOKEN:LATVIAN EDUCATION LEVEL OF EDUCATION:NOT FINISHED COLLEGE LEARNING BARRIERS / SPECIAL NEEDS CHANGE FROM LAST VISIT?NO BARRIERS TO LEARNING?NO HEARING IMPAIRED?NO VISION IMPAIRED?YES :CORRECTIVE LENSES COGNITIVELY IMPAIRED?NO READINESS TO LEARN?YES LEARNING PREFERENCES?NO LEARNING CAPABILITIES PRESENT?YES EMOTIONAL BARRIERS?NO SPECIAL DEVICES?NO 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 MARITAL STATUS: SINGLE. OTHERS AT HOME: CHILD, OTHER NON-RELATIVE. - WAS THE PROVIDER NOTIFIED OF ANY PERTINENT INFO?YES N/A HAS THE PATIENT BEEN EDUCATED REGARDING HIS/HER PLAN OF CARE?YES HAS THE PATIENT BEEN EDUCATED REGARDING PAIN, THE RISK FOR PAIN, THE IMPORTANCE OF EFFECTIVE PAIN MANAGEMENT, AND THE PAIN ASSESSMENT PROCESS?YES ADVANCE DIRECTIVE ADVANCE DIRECTIVE DISCUSSED WITH PATIENT:YES HCP VIGNESH HERRON [phone] REVIEW OF SYSTEMS CONSTITUTIONAL: ANY RECENT FEVER NO . CHILLS NO . WEIGHT CHANGE OF UNKNOWN REASONS NO . GASTROENTEROLOGY: NEW UNEXPLAINABLE CHANGES IN BOWEL CONTROL NO . CONSTIPATION NO . GENITOURINARY: ANY NEW CHANGE IN BLADDER CONTROL? NO . NEUROLOGY: NEW ONSET DIZZINESS OR NEUROLOGICAL CHANGES NOT MENTIONED NO . NEW NUMBNESS OR PAIN PATTERNS NOT MENTIONED AND PERTINENT TO TODAY'S VISIT NO . CARDIOLOGY: NEW CHEST PRESSURE NO . PATIENT DENIES NO . RESPIRATORY: UNEXPLAINABLE COUGH NO . NEW SHORTNESS OF BREATH NO . VITAL SIGNS WT 202.6 LBS, HT 67 IN, BMI 31.73 INDEX, BP 131/71 MM HG, HR 83 /MIN, RR 18 /MIN, TEMP 97.8 F, OXYGEN SAT % 97%, SAFE IN ENV? (Y/N) YES, NA INITIALS AW 0854T.POLINA BOWIE. EXAMINATION GENERAL EXAMINATION: GENERAL AWAKE,ALERT ,PLEASANT . PSYCH AFFECT NORMAL . LUNGS: LUNG RICO ARE CLEAR TO AUSCULTATION BILATERALLY. GOOD MOVEMENT OF AIR . HEART: S1, S2 IN A REGULAR RATE AND RHYTHM. NO SIGNIFICANT MURMURS, RUBS OR GALLOPS NOTED . DIAGNOSTIC TESTS REVIEWED MRI L/S SPINE-11/07/2020. ASSESSMENTS NEUROPATHY - G62.9 (PRIMARY) TREATMENT NEUROPATHY START CYMBALTA CAPSULE DELAYED RELEASE PARTICLES, 30 MG, 1 CAPSULE, ORALLY, ONCE A DAY, 30 DAY(S), 30, REFILLS 2 CONTINUE HYDROCODONE-ACETAMINOPHEN TABLET, 7.5-325 MG, 1 TABLET NEEDED, ORALLY, Q6H PRN MDD4 NOTES: I WILL SEND A REQUEST TO DR. QUIROGA TO REVIEW MRI OF LS SPINE AND DISCUSS WITH RADIOLOGY IN REGARDS TO VERTIFLEX PROCEDURE. HE MENTIONED TO HER THAT HE WOULD REFER HER FOR A SECOND OPINION IN REGARDS TO VERTIFLEX OPTION. PROCEDURE CODES FA211 ESTABILISHED PATIENT [facility] CHARGE DISPOSITION & COMMUNICATION FOLLOW UP 6 WEEKS (REASON: NEW START CYMBALTA) ELECTRONICALLY SIGNED BY TOBIAS KABA ON 11/09/2020 AT 01:32 PM EDT DISCLAIMER : THIS IS A VISIT SUMMARY EXTRACTED FROM THE [employer] CHART. IT IS NOT A COPY OF THE [employer] PROGRESS NOTE. DOROTHEA
== END ==
LOC: M PAIN 09:00
PROVIDERS: ATTEND Nurse Practitioner Family
DX: G62.9 Polyneuropathy, unspecified (principal); M76.891 Other specified enthesopathies of right lower limb, excluding foot; M76.892 Other specified enthesopathies of left lower limb, excluding foot; G43.909 Migraine, unspecified, not intractable, without status migrainosus; F41.9 Anxiety disorder, unspecified; K75.81 Nonalcoholic steatohepatitis (NASH); R10.13 Epigastric pain; M51.16 Intervertebral disc disorders with radiculopathy, lumbar region; I10 Essential (primary) hypertension; Z87.891 Personal history of nicotine dependence; Z79.891 Long term (current) use of opiate analgesic; Z79.899 Other long term (current) drug therapy; Z88.8 Allergy status to other drugs, medicaments and biological substances; J30.2 Other seasonal allergic rhinitis; Z91.048 Other nonmedicinal substance allergy status

== ENCOUNTER → 2020-12-09 | Outpatient (CLI) | payer OTHER ==
--- NOTE | 2020-12-15 02:50 | ECWPNPC ---
PATIENT NAME: MIKE LAI : 1980 GENDER: FEMALE VISIT DATE: 12/09/2020 DISCHARGE DATE: 12/09/20 1153 VISIT LOCKED DATE TIME: PHYSICIAN: CATHY QUIROGA MD PHYSICIAN PAGER NO: ACTIVE RESOURCE: CATHY QUIROGA MD REASON FOR APPOINTMENT 1. CONSIDER INJECTIONS/DCS HISTORY OF PRESENT ILLNESS GENERAL: 40-YEAR-OLD FEMALE PATIENT WITH A HISTORY OF CHRONIC LOW BACK AND BILATERAL LEG PAIN. THE PATIENT DESCRIBES THE PAIN ACHING AND SEVERE WITH A PAIN SCORE RANGING FROM 6-10/10. THIS IS AFFECTING HER ABILITY TO DO ACTIVITIES SUCH CLEANING HER HOUSE AND GROCERY SHOPPING. SHE HAS BEEN DOING EPIDURALS THAT GIVES HER TRANSIENT PAIN RELIEF BUT IT DOES NOT LAST. SHE HAS BEEN SEEN BY A SPINE SURGEON WHO TOLD HER THAT AT THE MOMENT, THERE IS NOT A SURGICAL SOLUTION FOR HER. PAIN CENTER INTAKE QUESTIONS: DO YOU HAVE A HISTORY OF MRSA? :NO DO YOU TAKE A BLOOD THINNERS? :NO DO YOU HAVE ANY BLEEDING DISORDERS? :NO ANY NEW NUMBNESS OR WEAKNESS IN YOUR LEGS OR ARMS? :NO ANY PACEMAKER,DEFIBRILLATOR, OR DORSAL COLUMN STIMULATOR? :NO DO YOU HAVE ANY RASHES OR OPEN SORES? :NO ARE YOU ALLERGIC TO IV DYE? :NO ARE YOU DIABETIC? :NO ANY NEW PROBLEMS WITH YOUR MEDICATIONS? :NO HAVE YOU RECEIVED A VACCINE IN THE PAST 30 DAYS? :NO DO YOU PLAN TO RECEIVE A VACCINE IN THE NEXT 21 DAYS? :NO DO YOU NEED ANY PRESCRIPTION? :NO DO YOU TAKE ANY IMMUNOSUPPRESSIVE MEDICATIONS? :NO DO YOU HAVE ANY KIDNEY OR LIVER DISEASE? :NO IS THERE A CHANCE YOU COULD BE ? :NO ARE YOU BREAST FEEDING? :NO FALL RISK SCREENING: SCREENING : NO FALLS REPORTED IN THE LAST YEAR. PAIN SCREENING: PATIENT HAS A COMPLAINT OF ACUTE OR CHRONIC PAIN :NO NURSING NOTE: -. CURRENT MEDICATIONS TAKING EXCEDRIN MIGRAINE 250-250-65 MG TABLET 2 TABLETS NEEDED ORALLY EVERY 6 HRS TAKING PANTOPRAZOLE SODIUM 20 MG TABLET DELAYED RELEASE 1 TABLET ORALLY PRN TAKING AZELASTINE HCL 0.1 % SOLUTION 1 PUFF IN EACH NOSTRIL NASALLY TWICE A DAY TAKING HYDROCODONE-ACETAMINOPHEN 10-325 MG TABLET 1 TABLET NEEDED ORALLY Q6H PRN MDD4 TAKING HYDROCHLOROTHIAZIDE 12.5 MG TABLET 1 TABLET IN THE MORNING ORALLY ONCE A DAY TAKING LOSARTAN POTASSIUM 25 MG TABLET 1 TABLET ORALLY ONCE A DAY TAKING PHENTERMINE HCL 37.5 MG CAPSULE 1 CAPSULE ORALLY ONCE A DAY NOT-TAKING HYDROCODONE-ACETAMINOPHEN 10-325 MG TABLET 1 TABLET NEEDED ORALLY EVERY 6 HRS MDD4 NOT-TAKING CYMBALTA 30 MG CAPSULE DELAYED RELEASE PARTICLES 1 CAPSULE ORALLY ONCE A DAY MEDICATION LIST REVIEWED AND RECONCILED WITH THE PATIENT PAST MEDICAL HISTORY TENDONITIS- RAUL KNEE MIGRAINES URINARY STRESS INCONTINENCE ANXIETY, ?PTSD HISTORY OF TOBACCO USE DYSPEPSIA GRANADOS BILATERAL CARPAL TUNNEL SYNDROME CHRONIC BACK PAIN, 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 CHILLS NO . WEIGHT CHANGE OF UNKNOWN REASONS NO . GASTROENTEROLOGY: NEW UNEXPLAINABLE CHANGES IN BOWEL CONTROL NO . CONSTIPATION NO . GENITOURINARY: ANY NEW CHANGE IN BLADDER CONTROL? NO . NEUROLOGY: NEW ONSET DIZZINESS OR NEUROLOGICAL CHANGES NOT MENTIONED NO . NEW NUMBNESS OR PAIN PATTERNS NOT MENTIONED AND PERTINENT TO TODAY'S VISIT NO . CARDIOLOGY: NEW CHEST PRESSURE NO . PATIENT DENIES NO . RESPIRATORY: UNEXPLAINABLE COUGH NO . NEW SHORTNESS OF BREATH NO . VITAL SIGNS WT 189.0 LBS, HT 67 IN, BMI 29.60 INDEX, BP 111/78 MM HG, HR 93 /MIN, RR 18 /MIN, TEMP 97.0 F, OXYGEN SAT % 965, NA INITIALS AW 1106. EXAMINATION GENERAL EXAMINATION: THE PATIENT IS ALERT, ORIENTED TIMES THREE AND COOPERATIVE. LUNGS ARE CLEAR TO AUSCULTATION. HEART SHOWS REGULAR RHYTHM, NO MURMURS AND NO GALLOPS. HER WALK IS ANTALGIC. SHE IS LIMPING MAINLY FROM THE LEFT LEG. BOTH LEGS ARE WEKA ON FLEXION AND EXTENSION. STRAIGHT LEG RAISE IS POSITIVE FOR RADICULOPATHY ON THE LEFT AT 20 DEGREES. MRI OF THE LUMBAR SPINE DATED 11/07/2020 SHOWS A BULGING DISC CONTACTING THE NERVE ROUTE AT L4-L5. ASSESSMENTS INTERVERTEBRAL DISC DISORDERS WITH RADICULOPATHY, LUMBAR REGION - M51.16 (PRIMARY) BACK PAIN - M54.9 TREATMENT INTERVERTEBRAL DISC DISORDERS WITH RADICULOPATHY, LUMBAR REGION CLINICAL NOTES: I DISCUSSED ALTNETATIVEES WITH MS. LAI. HER SURGEON INFORMED HER THAT AT THE MOMENT THERE IS NOT A SURGICAL SOLUATION. SHE IS HAVING DIFFICULTY PERFORMING ACTIVE IS. SHE WOULD LIKE TO MOVE FORWARD WITH A SPINAL COLUMN STIMULATOR A TRIAL .I WILL REQUEST A THORACIC MRI TO CHECK THE EPIDURAL SPACE TO SEE IF THERE IS ENOUGH SPACE TO PASS THE LEADS. ALSO, THE PSYCHOLOGICAL EVALUATION THAT IS REQUIRED FOR THE TRIAL. REFERRAL TO:VIGNESH JEANPSYCHIATRJenae REASON:PLEASE EVALUTATE FOR DCS TRIAL BACK PAIN [facility] SPINE,THORACIC WITHOUT [id number],NICOLE 12/12/2020 10:21:57 AM > MRI THORACIC SPINE WAS APPROVED. AUTH # [id number] EXP 01/26/21. PROCEDURE CODES FA211 ESTABILISHED PATIENT [facility] FACILITY CHARGE [id number] OFFICE/OUTPATIENT VISIT EST DISPOSITION & COMMUNICATION FOLLOW UP F/UP DIRECTOR STYLE MED MANAGEMENT (REASON: REQUEST AUTH FOR THORACIC MRI AND PSYCHOLOGICAL EMULATION) ELECTRONICALLY SIGNED BY CATHY QUIROGA MD, MD ON 12/14/2020 AT 09:36 AM EDT DISCLAIMER : THIS IS A VISIT SUMMARY EXTRACTED FROM THE [employer] CHART. IT IS NOT A COPY OF THE [employer] PROGRESS NOTE. DOROTHEA
== END ==
LOC: M PAIN 11:00
PROVIDERS: ATTEND Anesthesiology
DX: M51.16 Intervertebral disc disorders with radiculopathy, lumbar region (principal); M54.9 Dorsalgia, unspecified; G43.909 Migraine, unspecified, not intractable, without status migrainosus; F41.9 Anxiety disorder, unspecified; R10.13 Epigastric pain; K75.81 Nonalcoholic steatohepatitis (NASH); I10 Essential (primary) hypertension; Z79.899 Other long term (current) drug therapy; Z79.891 Long term (current) use of opiate analgesic

== ENCOUNTER → 2020-12-23 | Outpatient (CLI) | payer OTHER ==
--- NOTE | 2020-12-23 13:07 | REPVR ---
PROCEDURE INFORMATION: Exam: MR Thoracic Spine Without Contrast Exam date and time: 12/23/2020 8:36 AM Age: 40 years old Clinical indication: Pain in thoracic spine; Without myelpathy or radiculopathy; Patient HX: Mid back pain TECHNIQUE: Imaging protocol: Multiplanar magnetic resonance images of the thoracic spine without contrast. COMPARISON: XA FLUORO GUIDE SPINE INJECTION 09/15/2020 8:00 PM FINDINGS: Vertebrae: Unremarkable. Spinal cord: See "Discs/Spinal canal/Neural foramina" finding. Discs/Spinal canal/Neural foramina: There is a mild right paracentral disc herniation at T11/12 that indents the ventral thecal sac and causes mild spinal canal stenosis. There is no cord compression. There is no cord signal abnormality. Soft tissues: Unremarkable. IMPRESSION: There is a mild right paracentral disc herniation at T11/12 that indents the ventral thecal sac and causes mild spinal canal stenosis. There is no cord compression. There is no cord signal abnormality. Electronically signed by: Henry Reyes On 12/23/2020 13:07:14 PM
== END ==
LOC: M PLARAD 07:32
PROVIDERS: ATTEND Anesthesiology
DX: M51.24 Other intervertebral disc displacement, thoracic region (principal)

== ENCOUNTER → 2020-12-29 | Outpatient (CLI) | payer OTHER ==
--- NOTE | 2020-12-31 00:21 | ECWPNPC ---
PATIENT NAME: MIKE LAI : 1980 GENDER: FEMALE VISIT DATE: 12/29/2020 DISCHARGE DATE: 12/29/20 1009 VISIT LOCKED DATE TIME: PHYSICIAN: SABIHA BERNARDO PHYSICIAN PAGER NO: ACTIVE RESOURCE: SABIHA BERNARDO REASON FOR APPOINTMENT 1. LOW BACK/MED MGMNT HISTORY OF PRESENT ILLNESS GENERAL: HERE FOR FOLLOW-UP OF CHRONIC LOW BACK PAIN AND MEDICATION MANAGEMENT. IN THE PROCESS OF BEING WORKED UP FOR DORSAL COLUMN STIM TRIAL. HAD THORACIC MRI DONE WHICH IS REVIEWED TODAY. SHE IS IN THE PROCESS OF GETTING APPOINTMENT FOR PSYCH EVALUATION. FINDS CURRENT CHRONIC PAIN MEDICATION EFFECTIVE AT REDUCING PAIN KEEPING HER FUNCTIONAL. DENIES ADVERSE SIDE EFFECTS OF MEDICATIONS. BRINGS IN HER MEDICATION WHICH IS APPROPRIATE FOR WHAT WAS DISPENSED. -. FALL RISK SCREENING: SCREENING : NO FALLS REPORTED IN THE LAST YEAR. PAIN SCREENING: PATIENT HAS A COMPLAINT OF ACUTE OR CHRONIC PAIN :YES LOCATION OF PAIN:LOW BACK, LEG(S) BOTH LEGS INTENSITY OF PAIN (SCALE OF 1 TO 10):3 WHAT DOES YOUR PAIN FEEL LIKE:ACHING, CONTINOUS DURATION:CONTINOUS, CONSTANT, ALL DAY PAIN IS INCREASED BY:ACTIVITIES, PROLONGED STANDING PAIN IS DECREASED BY:USE OF PAIN MEDICATIONS NURSING NOTE: -. PAIN CENTER INTAKE QUESTIONS: DO YOU HAVE A HISTORY OF MRSA? :NO DO YOU TAKE A BLOOD THINNERS? :NO DO YOU HAVE ANY BLEEDING DISORDERS? :NO ANY NEW NUMBNESS OR WEAKNESS IN YOUR LEGS OR ARMS? :NO FEELING IN ANKLE COULDNOT STAND ON LEG ANY PACEMAKER,DEFIBRILLATOR, OR DORSAL COLUMN STIMULATOR? :NO DO YOU HAVE ANY RASHES OR OPEN SORES? :NO ARE YOU ALLERGIC TO IV DYE? :NO ARE YOU DIABETIC? :NO ANY NEW PROBLEMS WITH YOUR MEDICATIONS? :NO HAVE YOU RECEIVED A VACCINE IN THE PAST 30 DAYS? :YES 2N COVID 10/27/2020 DO YOU PLAN TO RECEIVE A VACCINE IN THE NEXT 21 DAYS? :NO DO YOU NEED ANY PRESCRIPTION? :NO DO YOU TAKE ANY IMMUNOSUPPRESSIVE MEDICATIONS? :NO DO YOU HAVE ANY KIDNEY OR LIVER DISEASE? :NO IS THERE A CHANCE YOU COULD BE ? :NO ARE YOU BREAST FEEDING? :NO CURRENT MEDICATIONS TAKING EXCEDRIN MIGRAINE 250-250-65 MG TABLET 2 TABLETS NEEDED ORALLY EVERY 6 HRS TAKING PANTOPRAZOLE SODIUM 20 MG TABLET DELAYED RELEASE 1 TABLET ORALLY PRN TAKING AZELASTINE HCL 0.1 % SOLUTION 1 PUFF IN EACH NOSTRIL NASALLY TWICE A DAY TAKING HYDROCODONE-ACETAMINOPHEN 10-325 MG TABLET 1 TABLET NEEDED ORALLY Q6H PRN MDD4 TAKING PHENTERMINE HCL 37.5 MG CAPSULE 1 CAPSULE ORALLY ONCE A DAY TAKING LOSARTAN POTASSIUM 25 MG TABLET 1 TABLET ORALLY ONCE A DAY TAKING HYDROCHLOROTHIAZIDE 12.5 MG TABLET 1 TABLET IN THE MORNING ORALLY ONCE A DAY MEDICATION LIST REVIEWED AND RECONCILED WITH THE PATIENT PAST MEDICAL HISTORY TENDONITIS- RAUL KNEE MIGRAINES URINARY STRESS INCONTINENCE ANXIETY, ?PTSD HISTORY OF TOBACCO USE DYSPEPSIA GRANADOS BILATERAL CARPAL TUNNEL SYNDROME CHRONIC BACK PAIN, 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 HTN ALLERGIES GOLD: RASH - ALLERGY BLEACH: SMELL CAUSES NAUSEA/VOMITING, REDNESS AND SWELLING - SIDE EFFECTS SEASONAL: SNEZZING - ALLERGY GABAPENTIN: VIVID DREAMS - SIDE EFFECTS CYMBALTA: VOTING - SIDE EFFECTS SOCIAL HISTORY GENERAL: TOBACCO USE ARE YOU A:FORMER SMOKER HOW LONG HAS IT BEEN SINCE YOU LAST SMOKED?1-5 YEARS SMOKING CESSATION INFORMATION GIVEN05/10/2017 LATEX QUESTIONNAIRE LATEX ALLERGY : HAVE YOU EVER DEVELOPED ANY TYPE OF REACTION AFTER HANDLING LATEX PRODUCTS SUCH RUBBER GLOVES, CONDOMS, DIAPHRAGMS, BALLOONS, SOCKS, OR UNDERWEAR?NO LATEX ALLERGY : HAVE YOU EVER DEVELOPED ANY TYPE OF REACTION DURING OR AFTER DENTAL APPOINTMENT, VAGINAL/RECTAL EXAMINATION, SURGICAL PROCEDURE, OR ANY OTHER EXPOSURE?NO LATEX RISK : HAVE YOU EVER HAD ANY DIFFICULTY BREATHING OR HIVES AFTER EATING OR HANDLING ANY FRUITS, OR VEGETABLES; SUCH KIWI, BANANAS, STONE FRUITS, OR CHESTNUTSNO LATEX RISK : DO YOU HAVE A PREVIOUS PERSONAL HISTORY OF MORE THAN NINE SURGERIES, SPINA BIFIDA, OR REPEATED CATHERIZATIONS? NO LATEX RISK : ARE YOU FREQUENTLY EXPOSED TO LATEX PRODUCTS IN YOUR OCCUPATION?NO DATE ASKED : 12/29/2020 ALCOHOL USE: NO. BMI CARE GOAL FOLLOW-UP ABOVE NORMAL BMI FOLLOW-UPDIETARY NEEDS EDUCATION ALCOHOL SCREENING DID YOU HAVE A DRINK CONTAINING ALCOHOL IN THE PAST YEAR?YES HOW OFTEN DID YOU HAVE SIX OR MORE DRINKS ON ONE OCCASION IN THE PAST YEAR?NEVER (0 POINTS) HOW MANY DRINKS DID YOU HAVE ON A TYPICAL DAY WHEN YOU WERE DRINKING IN THE PAST YEAR?1 OR 2 (0 POINTS) HOW OFTEN DID YOU HAVE A DRINK CONTAINING ALCOHOL IN THE PAST YEAR?MONTHLY OR LESS (1 POINT) POINTS1 INTERPRETATIONNEGATIVE RECREATIONAL DRUG USE DRUG USE?NO PATIENT DENIES ABUSE OR MISSUSED OF ANY MEDICATION. PATIENT DENIES USE OF ANY ILLEGAL SUBSTANCE INCLUDING MARIJUANA OR COCAINE. CAFFEINE CAFFEINE USE?YES HOW OFTEN AND HOW MUCH? 1-2 CUP SEXUAL HX HAD SEX IN THE LAST 12 MONTHS (VAGINAL, ORAL, OR ANAL)?YES WITHMEN ONLY PREVENTION STRATEGIES DISCUSSED:CONDOMS USE PROTECTION?NO LMP:08/29/2016 HAVE YOU EVER HAD AN STD?NO HIV / HEP-C SCREENING HIV TEST OFFERED TO PATIENT:YES DATE OFFERED:07/03/2016 TEST ACCEPTED:NO HEP-C TEST OFFERED TO PATIENT:YES DATE OFFERED:07/03/2016 REASON:PATIENT DECLINED TEST ACCEPTED:NO REASON:PATIENT DECLINED MU-ISM [id number] NONE LANGUAGE LANGUAGES SPOKEN:CYMRO EDUCATION LEVEL OF EDUCATION:NOT FINISHED COLLEGE LEARNING BARRIERS / SPECIAL NEEDS CHANGE FROM LAST VISIT?NO BARRIERS TO LEARNING?NO HEARING IMPAIRED?NO VISION IMPAIRED?YES :CORRECTIVE LENSES COGNITIVELY IMPAIRED?NO READINESS TO LEARN?YES LEARNING PREFERENCES?NO LEARNING CAPABILITIES PRESENT?YES EMOTIONAL BARRIERS?NO SPECIAL DEVICES?NO 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 MARITAL STATUS: SINGLE. OTHERS AT HOME: CHILD, OTHER NON-RELATIVE. - WAS THE PROVIDER NOTIFIED OF ANY PERTINENT INFO?YES N/A HAS THE PATIENT BEEN EDUCATED REGARDING HIS/HER PLAN OF CARE?YES HAS THE PATIENT BEEN EDUCATED REGARDING PAIN, THE RISK FOR PAIN, THE IMPORTANCE OF EFFECTIVE PAIN MANAGEMENT, AND THE PAIN ASSESSMENT PROCESS?YES ADVANCE DIRECTIVE ADVANCE DIRECTIVE DISCUSSED WITH PATIENT:YES HCP VIGNESH HERRON [phone] REVIEW OF SYSTEMS CONSTITUTIONAL: ANY RECENT FEVER NO . CHILLS NO . WEIGHT CHANGE OF UNKNOWN REASONS NO . GASTROENTEROLOGY: NEW UNEXPLAINABLE CHANGES IN BOWEL CONTROL NO . CONSTIPATION NO . GENITOURINARY: ANY NEW CHANGE IN BLADDER CONTROL? NO . NEUROLOGY: NEW ONSET DIZZINESS OR NEUROLOGICAL CHANGES NOT MENTIONED NO . NEW NUMBNESS OR PAIN PATTERNS NOT MENTIONED AND PERTINENT TO TODAY'S VISIT NO . CARDIOLOGY: NEW CHEST PRESSURE NO . PATIENT DENIES NO . RESPIRATORY: UNEXPLAINABLE COUGH NO . NEW SHORTNESS OF BREATH NO . VITAL SIGNS WT 185.0 LBS, HT 67 IN, BMI 28.97 INDEX, BP 128/90 MM HG, HR 91 /MIN, RR 18 /MIN, TEMP 97.7 F, OXYGEN SAT % 97%, SAFE IN ENV? (Y/N) YES, NA INITIALS AW 0909T.POLINA MA, PATIENT STATED THAT SHE IS VERY STRESSED OUT BECAUSE SHE IS GETTING TOMORROW. EXAMINATION GENERAL EXAMINATION: GENERAL AWAKE,ALERT ,PLEASANT . PSYCH AFFECT NORMAL . LUNGS: LUNG R[place] ARE CLEAR TO AUSCULTATION BILATERALLY. GOOD MOVEMENT OF AIR . HEART: S1, S2 IN A REGULAR RATE AND RHYTHM. NO SIGNIFICANT MURMURS, RUBS OR GALLOPS NOTED . DIAGNOSTIC TESTS REVIEWED MRI L/S SPINE-11/07/2020. ASSESSMENTS INTERVERTEBRAL DISC DISORDERS WITH RADICULOPATHY, LUMBAR REGION - M51.16 (PRIMARY) BACK PAIN - M54.9 SKILLED NURSING (CURRENT) USE OF OPIATE ANALGESIC - Z79.891 TREATMENT INTERVERTEBRAL DISC DISORDERS WITH RADICULOPATHY, LUMBAR REGION LAB: URINE TEST GROUP TIMBO FISHILIANA 12/29/2020 10:00:05 AM > LAST DOSE HYDROCODONE 12/29/2020 @7:30AM NOTES: ISTOP REGISTRY REVIEWED AND DEMONSTRATES COMPLLIANCE. BRINGS IN MEDICATIONS WHICH IS APPROPRIATE FOR WHAT WAS DISPENSED. RECENT URINE TOXICOLOGY REVIEWED. NO UNAUTHORIZED MEDICATIONS. NO ILLICIT SUBSTANCES AND PRESCRIBED MEDICATIONS WERE PRESENT. , RISKS OF NARCOTIC/OPIOD MEDICATIONS INCLUDES BUT IS NOT LIMITED TO RISK OF DEPENDANCE/DEVELOPMENT OF ADDICTION, MOOD DISTURBANCE AND DEPRESSION, OSTEOPOROSIS, HORMONAL AND LABIDAL CHANGES, RESPIRATORY DEPRESSION AND . PATIENT IS ADVISED NOT TO DRIVE OR DRINK ALCOHOL WHILE ON THESE MEDICATIONS. PROCEDURE CODES [id number] ESTABILISHED PATIENT [facility] CHARGE DISPOSITION & COMMUNICATION FOLLOW UP 2 MONTHS (REASON: EVALUATE PSYCH CONSULT AND THORACIC MRI/SCHEDULE DORSAL COLUMN STIM TRIAL) ELECTRONICALLY SIGNED BY TOBIAS KABA ON 12/30/2020 AT 12:56 PM EDT DISCLAIMER : THIS IS A VISIT SUMMARY EXTRACTED FROM THE Designer Material CHART. IT IS NOT A COPY OF THE Designer Material PROGRESS NOTE. STANLEYD
== END ==
LOC: M PAIN 09:15
PROVIDERS: ATTEND Nurse Practitioner Family
DX: M51.16 Intervertebral disc disorders with radiculopathy, lumbar region (principal); M54.9 Dorsalgia, unspecified; G43.909 Migraine, unspecified, not intractable, without status migrainosus; F41.9 Anxiety disorder, unspecified; K75.81 Nonalcoholic steatohepatitis (NASH); I10 Essential (primary) hypertension; N39.3 Stress incontinence (female) (male); Z87.891 Personal history of nicotine dependence; Z79.891 Long term (current) use of opiate analgesic; Z79.899 Other long term (current) drug therapy; Z88.8 Allergy status to other drugs, medicaments and biological substances; Z91.048 Other nonmedicinal substance allergy status

== ENCOUNTER → 2021-01-31 | Outpatient (CLI) | payer OTHER ==
--- NOTE | 2021-02-03 02:49 | ECWPNPC ---
PATIENT NAME: MIKE LAI : 1980 GENDER: FEMALE VISIT DATE: 01/31/2021 DISCHARGE DATE: 01/31/21 1554 VISIT LOCKED DATE TIME: PHYSICIAN: CATHY QUIROGA MD PHYSICIAN PAGER NO: ACTIVE RESOURCE: CATHY QUIROGA MD REASON FOR APPOINTMENT 1. EVALUATE PSYCH CONSULT AND THORACIC MRI/SCHEDULE DORSAL COLUMN STIM TRIAL 2. PATIENT WOULD LIKE TO DISCUSS GETTING A TRANSFORAMINAL PROCEDURE WHILE WAITING FOR THE DCS TRIAL HISTORY OF PRESENT ILLNESS GENERAL: 40-YEAR-OLD FEMALE PATIENT WITH A HISTORY OF CHRONIC LOW BACK AND MAINLY LEFT LEG PAIN. THE PATIENT DESCRIBES THE PAIN ACHING, BURNING AND CONTINUOUS WITH A PAIN SCORE RANGING FROM 6-9/10. SHE HAS RECEIVED EPIDURAL'S IN THE PAST THAT HAVE HELPED HER BUT SHE IS ALSO LOOKING FOR ALTERNATIVES. THIS IS AFFECTING HER ABILITY TO PERFORM ACTIVITIES SUCH CLEANING HER HOUSE AND GROCERY SHOPPING. FALL RISK SCREENING: SCREENING : NO FALLS REPORTED IN THE LAST YEAR. PAIN SCREENING: PATIENT HAS A COMPLAINT OF ACUTE OR CHRONIC PAIN :YES LOCATION OF PAIN:LOW BACK, LEG(S) BOTH LEGS, L>R INTENSITY OF PAIN (SCALE OF 1 TO 10):8 WHAT DOES YOUR PAIN FEEL LIKE:ACHING, BURNING, CONTINOUS, SHOOTING DURATION:CONTINOUS, AWAKENS FROM SLEEP PAIN IS INCREASED BY:ACTIVITIES, PROLONGED STANDING PAIN IS DECREASED BY:USE OF PAIN MEDICATIONS PLAN/GOALS/TREATMENT/INTERVENTION/FOLLOW UP:SEE PLAN NURSING NOTE: -. PAIN CENTER INTAKE QUESTIONS: DO YOU HAVE A HISTORY OF MRSA? :NO DO YOU TAKE A BLOOD THINNERS? :NO DO YOU HAVE ANY BLEEDING DISORDERS? :NO ANY NEW NUMBNESS OR WEAKNESS IN YOUR LEGS OR ARMS? :NO ANY PACEMAKER,DEFIBRILLATOR, OR DORSAL COLUMN STIMULATOR? :NO DO YOU HAVE ANY RASHES OR OPEN SORES? :NO ARE YOU ALLERGIC TO IV DYE? :NO ARE YOU DIABETIC? :NO ANY NEW PROBLEMS WITH YOUR MEDICATIONS? :NO HAVE YOU RECEIVED A VACCINE IN THE PAST 30 DAYS? :NO DO YOU PLAN TO RECEIVE A VACCINE IN THE NEXT 21 DAYS? :NO DO YOU TAKE ANY IMMUNOSUPPRESSIVE MEDICATIONS? :NO DO YOU HAVE ANY KIDNEY OR LIVER DISEASE? :NO IS THERE A CHANCE YOU COULD BE ? :NO ARE YOU BREAST FEEDING? :NO CURRENT MEDICATIONS TAKING EXCEDRIN MIGRAINE 250-250-65 MG TABLET 2 TABLETS NEEDED ORALLY EVERY 6 HRS TAKING PANTOPRAZOLE SODIUM 20 MG TABLET DELAYED RELEASE 1 TABLET ORALLY PRN TAKING AZELASTINE HCL 0.1 % SOLUTION 1 PUFF IN EACH NOSTRIL NASALLY TWICE A DAY TAKING LOSARTAN POTASSIUM 25 MG TABLET 1 TABLET ORALLY ONCE A DAY TAKING HYDROCHLOROTHIAZIDE 12.5 MG TABLET 1 TABLET IN THE MORNING ORALLY ONCE A DAY TAKING PHENTERMINE HCL 37.5 MG CAPSULE 1 CAPSULE ORALLY ONCE A DAY TAKING HYDROCODONE-ACETAMINOPHEN 10-325 MG TABLET 1 TABLET NEEDED ORALLY Q6H PRN MDD4 MEDICATION LIST REVIEWED AND RECONCILED WITH THE PATIENT PAST MEDICAL HISTORY TENDONITIS- RAUL KNEE MIGRAINES URINARY STRESS INCONTINENCE ANXIETY, ?PTSD HISTORY OF TOBACCO USE DYSPEPSIA GRANADOS BILATERAL CARPAL TUNNEL SYNDROME CHRONIC BACK PAIN, 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 HTN ALLERGIES GOLD: RASH - ALLERGY BLEACH: SMELL CAUSES NAUSEA/VOMITING, REDNESS AND SWELLING - SIDE EFFECTS SEASONAL: SNEZZING - ALLERGY GABAPENTIN: VIVID DREAMS - SIDE EFFECTS CYMBALTA: N/V - SIDE EFFECTS SOCIAL HISTORY GENERAL: TOBACCO USE ARE YOU A:FORMER SMOKER HOW LONG HAS IT BEEN SINCE YOU LAST SMOKED?1-5 YEARS SMOKING CESSATION INFORMATION GIVEN05/10/2017 LATEX QUESTIONNAIRE LATEX ALLERGY : HAVE YOU EVER DEVELOPED ANY TYPE OF REACTION AFTER HANDLING LATEX PRODUCTS SUCH RUBBER GLOVES, CONDOMS, DIAPHRAGMS, BALLOONS, SOCKS, OR UNDERWEAR?NO LATEX ALLERGY : HAVE YOU EVER DEVELOPED ANY TYPE OF REACTION DURING OR AFTER DENTAL APPOINTMENT, VAGINAL/RECTAL EXAMINATION, SURGICAL PROCEDURE, OR ANY OTHER EXPOSURE?NO LATEX RISK : HAVE YOU EVER HAD ANY DIFFICULTY BREATHING OR HIVES AFTER EATING OR HANDLING ANY FRUITS, OR VEGETABLES; SUCH KIWI, BANANAS, STONE FRUITS, OR CHESTNUTSNO LATEX RISK : DO YOU HAVE A PREVIOUS PERSONAL HISTORY OF MORE THAN NINE SURGERIES, SPINA BIFIDA, OR REPEATED CATHERIZATIONS? NO LATEX RISK : ARE YOU FREQUENTLY EXPOSED TO LATEX PRODUCTS IN YOUR OCCUPATION?NO DATE ASKED : 01/31/2021 ALCOHOL USE: NO. BMI CARE GOAL FOLLOW-UP ABOVE NORMAL BMI FOLLOW-UPDIETARY NEEDS EDUCATION ALCOHOL SCREENING DID YOU HAVE A DRINK CONTAINING ALCOHOL IN THE PAST YEAR?YES HOW OFTEN DID YOU HAVE SIX OR MORE DRINKS ON ONE OCCASION IN THE PAST YEAR?NEVER (0 POINTS) HOW MANY DRINKS DID YOU HAVE ON A TYPICAL DAY WHEN YOU WERE DRINKING IN THE PAST YEAR?1 OR 2 (0 POINTS) HOW OFTEN DID YOU HAVE A DRINK CONTAINING ALCOHOL IN THE PAST YEAR?MONTHLY OR LESS (1 POINT) POINTS1 INTERPRETATIONNEGATIVE RECREATIONAL DRUG USE DRUG USE?NO PATIENT DENIES ABUSE OR MISSUSED OF ANY MEDICATION. PATIENT DENIES USE OF ANY ILLEGAL SUBSTANCE INCLUDING MARIJUANA OR COCAINE. CAFFEINE CAFFEINE USE?YES HOW OFTEN AND HOW MUCH? 1-2 CUP SEXUAL HX HAD SEX IN THE LAST 12 MONTHS (VAGINAL, ORAL, OR ANAL)?YES WITHMEN ONLY PREVENTION STRATEGIES DISCUSSED:CONDOMS USE PROTECTION?NO LMP:08/29/2016 HAVE YOU EVER HAD AN STD?NO HIV / HEP-C SCREENING HIV TEST OFFERED TO PATIENT:YES DATE OFFERED:07/03/2016 TEST ACCEPTED:NO HEP-C TEST OFFERED TO PATIENT:YES DATE OFFERED:07/03/2016 REASON:PATIENT DECLINED TEST ACCEPTED:NO REASON:PATIENT DECLINED ISLAM [id number] NONE LANGUAGE LANGUAGES SPOKEN:GUAMANIAN EDUCATION LEVEL OF EDUCATION:NOT FINISHED COLLEGE LEARNING BARRIERS / SPECIAL NEEDS CHANGE FROM LAST VISIT?NO BARRIERS TO LEARNING?NO HEARING IMPAIRED?NO VISION IMPAIRED?YES COGNITIVELY IMPAIRED?NO :CORRECTIVE LENSES READINESS TO LEARN?YES LEARNING PREFERENCES?NO LEARNING CAPABILITIES PRESENT?YES EMOTIONAL BARRIERS?NO SPECIAL DEVICES?NO MIXED SIGNAL DESIGN ENGINEER NEEDED?NO DOMESTIC VIOLENCE STATUS: 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 MARITAL STATUS: SINGLE. OTHERS AT HOME: CHILD, OTHER NON-RELATIVE. - WAS THE PROVIDER NOTIFIED OF ANY PERTINENT INFO?YES N/A HAS THE PATIENT BEEN EDUCATED REGARDING HIS/HER PLAN OF CARE?YES HAS THE PATIENT BEEN EDUCATED REGARDING PAIN, THE RISK FOR PAIN, THE IMPORTANCE OF EFFECTIVE PAIN MANAGEMENT, AND THE PAIN ASSESSMENT PROCESS?YES ADVANCE DIRECTIVE ADVANCE DIRECTIVE DISCUSSED WITH PATIENT:YES HCP VIGNESH HERRON [phone] REVIEW OF SYSTEMS GLAUCOMA: NOTHYROID DISEASE: NOHYPERTENSION: NOHEART DISEASE: NOLUNG DISEASE: NODIABETES: NOGI DISEASE: NO LIVER DISEASE: NO KIDNEY DISEASE: NOSTERIOD USE: NONEUROLOGICAL DISEASE: NOBACK PROBLEMS: YES, PAINEXTREMITIES: YES, PAINGENITOURINARY: NOBLEEDING DISORDER: NOASA CLASS: IIAIRWAY CLASS: II. VITAL SIGNS WT 183.6 LBS, HT 67 IN, BMI 28.75 INDEX, BP 127/77 MM HG, HR 91 /MIN, RR 18 /MIN, TEMP 98.0 F, OXYGEN SAT % 98%, SAFE IN ENV? (Y/N) YES, NA INITIALS AW 1346, REVIEWED BY: Gisela MEDELLIN CLINIC BUSINESS MANAGER. EXAMINATION GENERAL: THE PATIENT IS ALERT, ORIENTED TIMES THREE AND COOPERATIVE. LUNGS ARE CLEAR TO AUSCULTATION. HEART SHOWS REGULAR RHYTHM, NO MURMURS AND NO GALLOPS. THE LEFT LEG IS WEAKER THAN THE RIGHT LEG ON FLEXION AND EXTENSION. STRAIGHT LEG RAISE IS POSITIVE FOR RADICULOPATHY ON THE LEFT AT 15 DEGREES. MRI OF LUMBAR SPINE DATED 11/07/2020 SHOWS SOME BULGING DISC AT L4-L5, L5-S1. ASSESSMENTS INTERVERTEBRAL DISC DISORDERS WITH RADICULOPATHY, LUMBAR REGION - M51.16 (PRIMARY) INTERVERTEBRAL DISC DISORDERS WITH RADICULOPATHY, LUMBOSACRAL REGION - M51.17 TREATMENT INTERVERTEBRAL DISC DISORDERS WITH RADICULOPATHY, LUMBAR REGION MED: PAIN VERSED 1MG IV MIDAZOLAM (ORDERED FOR 02/07/2021) MEDICATION: PAIN FENTANYL CITRATE 50MCG IV (ORDERED FOR 02/07/2021) MED: PAIN BENADRYL 25MG IV DIPHENHYDRAMINE (ORDERED FOR 02/07/2021) IV LACTATED RINGER'S AT KVO (ORDERED FOR 02/07/2021) OXYGEN AT 2 LITERS PER NASAL CANNULA (ORDERED FOR 02/07/2021) CLINICAL NOTES: I DISCUSSED ALTERNATIVES WITH MS. LAI. WE AGREE ON REQUESTING AUTHORIZATION FOR A LEFT L4-L5, L5-S1 TRANSFORAMINAL EPIDURAL WITH IV SEDATION DUE TO THE ANXIETY AND DISCOMFORT ASSOCIATED WITH THE PROCEDURE. THE PATIENT REPORTS UNDERSTANDING AND AGREES WITH THE PLAN. I, KRISTA SANTAMARIA, DOCUMENTED THE ABOVE INFORMATION ACTING A SCRIBE FOR DR. QUIROGA. I HAVE REVIEWED THE ABOVE DOCUMENT, WRITTEN BY KRISTA SANTAMARIA, WEATHER ALGORITHM SCIENTIST, AND I VERIFY THAT IT IS ACCURATE. PROCEDURE CODES FA211 ESTABILISHED PATIENT [facility] CHARGE [id number] OFFICE/OUTPATIENT VISIT EST DISPOSITION & COMMUNICATION FOLLOW UP BOOK PROCEDURE, DOES NOT NEED PRESEDATE (REASON: LEFT TRANSFORAMINAL EPIDURAL STEROID INJECTION L4-L5, L5-S1 WITH IV SEDATION) ELECTRONICALLY SIGNED BY CATHY QUIROGA MD, MD ON 02/02/2021 AT 11:32 AM EDT DISCLAIMER : THIS IS A VISIT SUMMARY EXTRACTED FROM THE [facility] CHART. IT IS NOT A COPY OF THE [facility] PROGRESS NOTE. [facility]
== END ==
LOC: M PAIN 13:40
PROVIDERS: ATTEND Anesthesiology
DX: M51.16 Intervertebral disc disorders with radiculopathy, lumbar region (principal); M51.17 Intervertebral disc disorders with radiculopathy, lumbosacral region; G43.909 Migraine, unspecified, not intractable, without status migrainosus; N39.3 Stress incontinence (female) (male); F41.9 Anxiety disorder, unspecified; R10.13 Epigastric pain; K76.0 Fatty (change of) liver, not elsewhere classified; I10 Essential (primary) hypertension; Z79.891 Long term (current) use of opiate analgesic; Z79.899 Other long term (current) drug therapy; Z87.891 Personal history of nicotine dependence; Z91.048 Other nonmedicinal substance allergy status; Z88.8 Allergy status to other drugs, medicaments and biological substances; J30.2 Other seasonal allergic rhinitis

== ENCOUNTER → 2021-02-09 | Outpatient (CLI) | payer OTHER | LOC: M LABSMTC 09:38 | PROVIDERS: ATTEND Anesthesiology | DX: Z01.812 Encounter for preprocedural laboratory examination (principal); Z20.822 Contact with and (suspected) exposure to COVID-19 ==

== ENCOUNTER → 2021-02-14 | Outpatient (CLI) | payer OTHER ==
[~2021-02-14] MED LIST changes: +BUPIVACAINE HCL 0.25% 30ML VIAL As Ordered ONE; +ISOVUE-M 300 61% 15ML VIAL As Ordered ONE; +LIDOCAINE 1% SDV 30ML VIAL As Ordered ONE; +MIDAZOLAM INJ 2MG/2ML VIAL (J2250 PER 1MG) As Ordered ONE; +dexameTHASONE 10MG/1ML VIAL PRES.FREE (J1100 PER 1MG) As Ordered ONE; +fentaNYL 100 MCG/2 ML INJECTION (J3010) As Ordered ONE; +oxyCODONE 5MG TAB As Ordered ONE
--- NOTE | 2021-02-14 16:02 | REP ---
INDICATION: LEFT TRANSFOARMINAL EPIDURAL STEROID INJECTION. COMPARISON: None. TECHNIQUE: Nine views. 65.1 seconds of fluoroscopy time is reported. FINDINGS: A sequence of 9 last image hold fluoroscopically obtained spot radiograph(s) of the lumbar spine document(s) needle position(s) and contrast injection associated with injection procedure. IMPRESSION: Procedural imaging. <Electronically signed by Iggy Langston > 02/14/21 [id number]
--- NOTE | 2021-02-18 02:43 | ECWPNPC ---
PATIENT NAME: MIKE LAI : 1980 GENDER: FEMALE VISIT DATE: 02/14/2021 DISCHARGE DATE: 02/14/211747 VISIT LOCKED DATE TIME: PHYSICIAN: CATHY QUIROGA MD PHYSICIAN PAGER NO: ACTIVE RESOURCE: CATHY QUIROGA MD REASON FOR APPOINTMENT 1. LEFT TRANSFORAMINAL EPIDURAL STEROID INJECTION L4-L5, L5-S1 WITH IV SEDATION HISTORY OF PRESENT ILLNESS GENERAL: -. FALL RISK SCREENING: SCREENING : NO FALLS REPORTED IN THE LAST YEAR. PAIN SCREENING: PATIENT HAS A COMPLAINT OF ACUTE OR CHRONIC PAIN :YES LOCATION OF PAIN:LOW BACK, LEG(S) LEFT LEG INTENSITY OF PAIN (SCALE OF 1 TO 10):9 WHAT DOES YOUR PAIN FEEL LIKE:ACHING, BURNING, CONTINOUS, SHARP, STABBING, SHOOTING DURATION:CONTINOUS PAIN IS INCREASED BY:ACTIVITIES PAIN IS DECREASED BY:OTHERS HEATING PAD FOR ONLY A SHORT TIME NURSING NOTE: -. PAIN CENTER INTAKE QUESTIONS: DO YOU HAVE A HISTORY OF MRSA? :NO DO YOU TAKE A BLOOD THINNERS? :NO DO YOU HAVE ANY BLEEDING DISORDERS? :NO ANY NEW NUMBNESS OR WEAKNESS IN YOUR LEGS OR ARMS? :NO ANY PACEMAKER,DEFIBRILLATOR, OR DORSAL COLUMN STIMULATOR? :NO DO YOU HAVE ANY RASHES OR OPEN SORES? :NO ARE YOU ALLERGIC TO IV DYE? :NO ARE YOU DIABETIC? :NO ANY NEW PROBLEMS WITH YOUR MEDICATIONS? :NO HAVE YOU RECEIVED A VACCINE IN THE PAST 30 DAYS? :NO DO YOU PLAN TO RECEIVE A VACCINE IN THE NEXT 21 DAYS? :NO DO YOU TAKE ANY IMMUNOSUPPRESSIVE MEDICATIONS? :NO ANY HISTORY OF SEIZURES? :NO ANY HISTORY OF CARDIAC ISSUES OR EVENTS? :NO DO YOU HAVE ANY KIDNEY OR LIVER DISEASE? :NO DO YOU HAVE SLEEP APNEA? :NO ANY RECENT HEAD INJURY? :NO DO YOU HAVE ANY NEW INFECTIONS? :NO IS THERE A CHANCE YOU COULD BE ? :NO ARE YOU BREAST FEEDING? :NO WHEN DID YOU LAST EAT? : 02/14/2021 0200 WHEN DID YOU LAST DRINK? : 02/14/2021 0900 WHAT DID YOU LAST DRINK? : WATER NAME OF PERSON DRIVING YOU HOME? : VIGNESH DO YOU HAVE ANY OTHER QUESTIONS OR CONCERNS? : NO CURRENT MEDICATIONS TAKING EXCEDRIN MIGRAINE 250-250-65 MG TABLET 2 TABLETS NEEDED ORALLY EVERY 6 HRS TAKING AZELASTINE HCL 0.1 % SOLUTION 1 PUFF IN EACH NOSTRIL NASALLY TWICE A DAY TAKING LOSARTAN POTASSIUM 25 MG TABLET 1 TABLET ORALLY ONCE A DAY TAKING HYDROCHLOROTHIAZIDE 12.5 MG TABLET 1 TABLET IN THE MORNING ORALLY ONCE A DAY TAKING PHENTERMINE HCL 37.5 MG CAPSULE 1 CAPSULE ORALLY ONCE A DAY TAKING HYDROCODONE-ACETAMINOPHEN 10-325 MG TABLET 1 TABLET NEEDED ORALLY Q6H PRN MDD4 TAKING TRIAMCINOLONE ACETONIDE 0.1 % OINTMENT 1 APPLICATION EXTERNALLY TWICE A DAY TAKING PANTOPRAZOLE SODIUM 20 MG TABLET DELAYED RELEASE TAKE 1 TABLET BY MOUTH ONCE DAILY MEDICATION LIST REVIEWED AND RECONCILED WITH THE PATIENT PAST MEDICAL HISTORY TENDONITIS- RAUL KNEE MIGRAINES URINARY STRESS INCONTINENCE ANXIETY, ?PTSD HISTORY OF TOBACCO USE DYSPEPSIA GRANADOS BILATERAL CARPAL TUNNEL SYNDROME CHRONIC BACK PAIN, 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 HTN ALLERGIES GOLD: RASH - ALLERGY BLEACH: SMELL CAUSES NAUSEA/VOMITING, REDNESS AND SWELLING - SIDE EFFECTS SEASONAL: SNEZZING - ALLERGY GABAPENTIN: VIVID DREAMS - SIDE EFFECTS CYMBALTA: N/V - SIDE EFFECTS SOCIAL HISTORY GENERAL: TOBACCO USE ARE YOU A:FORMER SMOKER HOW LONG HAS IT BEEN SINCE YOU LAST SMOKED?1-5 YEARS SMOKING CESSATION INFORMATION GIVEN05/10/2017 LATEX QUESTIONNAIRE LATEX ALLERGY : HAVE YOU EVER DEVELOPED ANY TYPE OF REACTION AFTER HANDLING LATEX PRODUCTS SUCH RUBBER GLOVES, CONDOMS, DIAPHRAGMS, BALLOONS, SOCKS, OR UNDERWEAR?NO LATEX ALLERGY : HAVE YOU EVER DEVELOPED ANY TYPE OF REACTION DURING OR AFTER DENTAL APPOINTMENT, VAGINAL/RECTAL EXAMINATION, SURGICAL PROCEDURE, OR ANY OTHER EXPOSURE?NO LATEX RISK : HAVE YOU EVER HAD ANY DIFFICULTY BREATHING OR HIVES AFTER EATING OR HANDLING ANY FRUITS, OR VEGETABLES; SUCH KIWI, BANANAS, STONE FRUITS, OR CHESTNUTSNO LATEX RISK : DO YOU HAVE A PREVIOUS PERSONAL HISTORY OF MORE THAN NINE SURGERIES, SPINA BIFIDA, OR REPEATED CATHERIZATIONS? NO LATEX RISK : ARE YOU FREQUENTLY EXPOSED TO LATEX PRODUCTS IN YOUR OCCUPATION?NO DATE ASKED : 02/14/2021 ALCOHOL USE: NO. BMI CARE GOAL FOLLOW-UP ABOVE NORMAL BMI FOLLOW-UPDIETARY NEEDS EDUCATION ALCOHOL SCREENING DID YOU HAVE A DRINK CONTAINING ALCOHOL IN THE PAST YEAR?YES HOW OFTEN DID YOU HAVE A DRINK CONTAINING ALCOHOL IN THE PAST YEAR?MONTHLY OR LESS (1 POINT) HOW MANY DRINKS DID YOU HAVE ON A TYPICAL DAY WHEN YOU WERE DRINKING IN THE PAST YEAR?1 OR 2 (0 POINTS) HOW OFTEN DID YOU HAVE SIX OR MORE DRINKS ON ONE OCCASION IN THE PAST YEAR?NEVER (0 POINTS) POINTS1 INTERPRETATIONNEGATIVE RECREATIONAL DRUG USE DRUG USE?NO PATIENT DENIES ABUSE OR MISSUSED OF ANY MEDICATION. PATIENT DENIES USE OF ANY ILLEGAL SUBSTANCE INCLUDING MARIJUANA OR COCAINE. CAFFEINE CAFFEINE USE?YES HOW OFTEN AND HOW MUCH? 1-2 CUP SEXUAL HX HAD SEX IN THE LAST 12 MONTHS (VAGINAL, ORAL, OR ANAL)?YES WITHMEN ONLY USE PROTECTION?NO PREVENTION STRATEGIES DISCUSSED:CONDOMS HAVE YOU EVER HAD AN STD?NO LMP:08/29/2016 HIV / HEP-C SCREENING HIV TEST OFFERED TO PATIENT:YES DATE OFFERED:07/03/2016 TEST ACCEPTED:NO REASON:PATIENT DECLINED HEP-C TEST OFFERED TO PATIENT:YES DATE OFFERED:07/03/2016 TEST ACCEPTED:NO REASON:PATIENT DECLINED PROTESTANT [id number] NONE LANGUAGE LANGUAGES SPOKEN:KHMER EDUCATION LEVEL OF EDUCATION:NOT FINISHED COLLEGE LEARNING BARRIERS / SPECIAL NEEDS CHANGE FROM LAST VISIT?NO BARRIERS TO LEARNING?NO HEARING IMPAIRED?NO VISION IMPAIRED?YES :CORRECTIVE LENSES COGNITIVELY IMPAIRED?NO READINESS TO LEARN?YES LEARNING PREFERENCES?NO LEARNING CAPABILITIES PRESENT?YES EMOTIONAL BARRIERS?NO SPECIAL DEVICES?NO ENVIRONMENTAL AIDE NEEDED?NO DOMESTIC VIOLENCE STATUS: DO YOU FEEL SAFE IN YOUR ENVIRONMENT?YES 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 MARITAL STATUS: SINGLE. OTHERS AT HOME: CHILD, OTHER NON-RELATIVE. - WAS THE PROVIDER NOTIFIED OF ANY PERTINENT INFO?YES N/A HAS THE PATIENT BEEN EDUCATED REGARDING HIS/HER PLAN OF CARE?YES HAS THE PATIENT BEEN EDUCATED REGARDING PAIN, THE RISK FOR PAIN, THE IMPORTANCE OF EFFECTIVE PAIN MANAGEMENT, AND THE PAIN ASSESSMENT PROCESS?YES ADVANCE DIRECTIVE ADVANCE DIRECTIVE DISCUSSED WITH PATIENT:YES HCP VIGNESH HERRON [phone] VITAL SIGNS WT 181.2 LBS, WT-KG 82.19 KG, HT 67 IN, BMI 28.38 INDEX, BP 145/75 MM HG, HR 73 /MIN, RR 18 /MIN, TEMP 97.6 F, OXYGEN SAT % 100%, SAFE IN ENV? (Y/N) YES, NA INITIALS MS 12:23, REVIEWED BY: Laure GARCIA RN. EXAMINATION GENERAL: A HISTORY AND PHYSICAL EXAM ON THE PATIENT WAS DONE ON 01/31/2021(DATE OF ORIGINAL ASSESSMENT) IN PREPARATION OF SURGERY/PROCEDURE. I HAVE NOW REASSESSED THIS PATIENT'S HEALTH STATUS AND PERFORMED AN UPDATED EXAM TODAY. ALL CHANGES IN THE PATIENT'S HISTORY, PHYSICAL EXAM, PRE-EXISTING CONDITONS, AND INDICATIONS/CONTRAINDICATIONS TO THE PLANNED PROCEDURE AND ANESTHESIA ARE DOCUMENTED AND EVALUATED BELOW. I ATTEST TO THE ADEQUACY AND APPROPRIATENESS OF MY ASSESSMENT, AND CONFIRM THE NECESSITY FOR THE PLANNED PROCEDURE. THE PATIENT IS ALERT, ORIENTED TIMES THREE AND COOPERATIVE. LUNGS ARE CLEAR TO AUSCULTATION. HEART SHOWS REGULAR RHYTHM, NO MURMURS AND NO GALLOPS. ASSESSMENTS INTERVERTEBRAL DISC DISORDERS WITH RADICULOPATHY, LUMBAR REGION - M51.16 (PRIMARY) TREATMENT INTERVERTEBRAL DISC DISORDERS WITH RADICULOPATHY, LUMBAR REGION START CARISOPRODOL TABLET, 350 MG, 1 TABLET NEEDED, ORALLY FOR SPASMS AND PAIN, EVERY 8 HOURS NEEDED MDD3, 3 DAYS, 9, REFILLS 0 [facility] FLUORO GUIDE SPINE INJECTION (PAIN)[id number] MEDICATION: PAIN OXYCODONE HCL TAB 10MG [id number],ANITA 02/14/2021 4:31:18 PM > VERIFIED RENATA LUCAS 02/14/2021 4:33:52 PM > ADMINISTERED COMPLETION OF PROCEDURAL VISIT WHEN MEETS [id number],RENATA R 02/14/2021 5:10:25 PM > CRITERIA MET MED: PAIN VERSED 1MG IV [id number],RENATA R 02/14/2021 2:04:14 PM > VERIFIED KRISTA SANTAMARIA 02/14/2021 2:42:22 PM > SECOND DOSE ORDERED, VERIFIED BY KRISTA LR 02/14/2021 2:44:53 PM > THIRD DOSE ORDERED, VERIFIED BY LIANG JORDAN 02/14/2021 3:18:26 PM > 1 MGS GIVEN AT 1440, 2ND 1 MGS GIVEN AT 1442, 3RD 1 MGS GIVEN AT 1445 FOR A TOTAL OF 3MGS MEDICATION: PAIN FENTANYL CITRATE 50MCG IV [id number],RENATA R 02/14/2021 2:04:34 PM > VERIFIED KRISTA SANTAMARIA 02/14/2021 2:42:36 PM > SECOND DOSE ORDERED, VERIFIED BY KRISTA LR 02/14/2021 2:43:37 PM > THIRD DOSE ORDERED, VERIFIED BY DR. JUNAID SANTAMARIAKRISTA 02/14/2021 2:50:00 PM > FOURTH DOSE ORDERED, VERIFIED BY DR. JUNAID NIELSEN,LIANG 02/14/2021 3:20:34 PM > 50MCGS GIVEN AT 1441, 2ND 50MCGS GIVEN AT 1443, 3RD 50 MCGS GIVEN AT 1444 AND 4TH 50MCGS GIVEN AT 1449 FOR A TOTAL OF 200 MCGS IV LACTATED RINGER'S AT [id number],ANITA 02/14/2021 1:18:44 PM > IV STARTED ON 1ST ATTEMPT WITH #20G IN LEFT MID ARM, RL INFUSING AT KVO WITHOUT REDNESS OR SWELLING. PT. TOLERATED WELL. PETRAS,RENATA R 02/14/2021 3:24:17 PM > 200 ML INFUSED OF LR TOTAL OXYGEN AT 2 LITERS PER NASAL [id number],RENATA R 02/14/2021 2:28:26 PM > 02 ON AT 1418 PETRAS,RENATA R 02/14/2021 3:23:56 PM > 02 OFF 1459 CLINICAL NOTES: FOR POST-PROCEDURE PAIN- ISTOP [id number] CHECKED. PROCEDURES PAIN NURSING RECORD PROCEDURE IN ROOM 1415, PHYSICIAN IN ROOM 1439, START 1443, FINISH 1456, PHYSICIAN OUT OF ROOM 1457, OUT OF ROOM 1505, ECG NORMAL SINUS, PATIENT SHIELDED YES, SAFETY STRAP YES, PREP BETADINE Татьяна NIELSEN RN, DRESSING TEGADERM DR. QUIROGA LOC: PETRAS,RENATA R 02/14/2021 2:37:50 PM > , 2. DROWSY, RESPONDS APPROPRIATELY, PETRAS,RENATA R 02/14/2021 2:44:57 PM > , 2. DROWSY, RESPONDS APPROPRIATELY RESP: PETRAS,RENATA R 02/14/2021 2:37:54 PM > , 1. REGULAR, NO DYSPNEA, PETRAS,RENATA R 02/14/2021 2:45:00 PM > , 1. REGULAR, NO DYSPNEA COLOR: PETRAS,RENATA R 02/14/2021 2:37:57 PM > , 1. PINK, PETRAS,RENATA R 02/14/2021 2:45:03 PM > , 1. PINK SKIN: PETRAS,RENATA R 02/14/2021 2:37:59 PM > , 1. WARM, DRY, PETRAS,RENATA R 02/14/2021 2:45:07 PM > , 1. WARM, DRY POSITION: PETRAS,RENATA R 02/14/2021 2:38:03 PM > , 1. PRONE, PETRAS,RENATA R 02/14/2021 2:45:11 PM > , 1. PRONE VITALS: PETRAS,RENATA R 02/14/2021 2:31:00 PM > , 141/94, 83, 16, 100% 2L NC PETRAS,RENATA R 02/14/2021 2:25:43 PM - 134/96, 78, 18, 100% 2LC NC PETRAS,RENATA R 02/14/2021 2:31:35 PM > 136/102,86, 16, 100% 2L NC PETRAS,RENATA R 02/14/2021 2:36:49 PM > 142/98, 78, 18, 100% 2L NC , PETRAS,RENATA R 02/14/2021 2:42:08 PM > 144/102, 79, 16, 100% 2L NC , PETRAS,RENATA R 02/14/2021 2:46:41 PM > 145/96, 89, 18, 100% 2L NC , PETRAS,RENATA R 02/14/2021 2:52:23 PM > 134/72, 77, 18, 100% 2L NC , PETRAS,RENATA R 02/14/2021 2:57:57 PM > 153/72, 75, 16, 100% 2L NC , PETRAS,RENATA R 02/14/2021 3:02:43 PM > 138/74, 86, 18, 100% , PETRAS,RENATA R 02/14/2021 3:07:07 PM > 129/72, 79, 18, 97% , PETRAS,RENATA R 02/14/2021 3:15:55 PM > 142/99, 93, 18, 99% , PETRAS,RENATA R 02/14/2021 3:31:27 PM > 124/77, 82, 20, 99% , RENATA LUCAS R 02/14/2021 3:48:15 PM > 130/81, 81, 18, 99% , RENATA LUCAS R 02/14/2021 4:50:24 PM > 126/76, 89, 18, 97% NOTES PATIENT REPORTING SEVERE PAIN FOLLOWING PROCEDURE AND STATES "ITS FEELS LIKE IT DID BEFORE I CAME IN HERE". THIS CLERK TYPIST OFFERED TO HELP PATIENT WITH REPOSITONING OR WITH AN ICEPACK, PATIENT REFUSING AT THIS TIME. DR. QUIROGA AWARE OF PAIN, AND RECOMMENDS ALLOWING PATIENT TO REST FOR 30 MINS TO ALLOW SEDATION TO WEAR OFF AND THEN REASSESS PAIN STATUS. - Татьяна LUCAS RN , RENATA LUCAS R 02/14/2021 3:50:21 PM > CONTINUING TO OFFER METHODS OF COMFORT FOR PATIENT INCLUDING REPOSITIONING, ASSISTANCE MOVING, OBTAINING PAIN MEDICATION ORDER FROM DR. QUIROGA. PATIENT CONTINUES TO REFUSE THIS OPTION AND IS CRYING. DR. QUIROGA IN TO ASSESS PATIENT. -Татьяна RN 15 MINUTES FOLLOWING OXYCODONE ADMINISTRATION PATIENT STILL REPORTING SEVERE PAIN BUT ABLE TO SIT UP AND GET DRESSED WITH HELP OF . DR. QUIROGA DISCUSSED WITH PATIENT THAT HE WILL CALL IN A PRESCRIPTION FOR SOMA FOR THE NEXT 3 DAYS AND THAT WE WILL FOLLOW UP WITH THE PATIENT FOR THE NEXT THREE DAYS VIA PHONE. PATIENT INSTRUCTED TO GO TO THE EMERGENCY ROOM IF PAIN BECOMES WORSE OR IF SHE FEELS THIS IS UNBAREABLE. PATIENT IN AGREEMENT WITH PLAN. DR QUIROGA OBSERVED PATIENT'S LAST SET OF VITAL SIGNS AT 4:50 PM, VITALS STABLE & PATIENT ABLE TO DRESS WITH HELP OF PARTNER, PER DR. QUIROGA PATIENT MET CRITERIA FOR COMPLETION OF PROCEDURE. PATIENT BROUGHT TO CAR VIA WHEELCHAIR AND ASSISTED INTO CAR BY VIGNESH. WILL CALL PATIENT TOMORROW TO FOLLOW UP. Татьяна RN COMPLETION OF PROCEDURE APPOINTMENT: POST PAIN 10, DRESSING SITE DRY AND INTACT, IV DISCONTINUED, SITE CLEAR, CATHETER INTACT, GAIT WHEELCHAIR, TEACHING COMPLETED, PATIENT ACKNOWLEDGES UNDERSTANDING YES TEACHING REVIEWED WITH VIGNESH. PATIENT IN SEVERE PAIN, NOT ABLE TO FULLY EDUCATE PATIENT WHILE IN PAIN. VIGNESH VERBALIZED UNDERSTANDING OF TEACHING., PROCEDURE APPOINTMENT COMPLETED AT 1700 BY: Татьяна LUCAS RN PN LUMBAR TRANSFORAMINAL BLOCKS PRE PROCEDURE DIAGNOSIS LUMBOSACRAL DISC DISORDER WITH RADICULOPATHY POST PROCEDURE DIAGNOSIS LUMBOSACRAL DISC DISORDER WITH RADICULOPATHY PROCEDURE LEFT L4-L5 AND LEFT L5-S1 TRANSFORAMINAL EPIDURAL STEROID INJECTION UNDER FLUOROSCOPIC GUIDANCE SURGEON DR CATHY QUIROGA FURNITURE CLEANER NONE ANESTHESIA LOCAL WITH IV SEDATION PRE PROCEDURE NOTE THE PATIENT WITH HISTORY OF CHRONIC LOW BACK PAIN. I EVALUATED THE PATIENT AND REVIEWED THE CHART. I WENT OVER THE RISKS, ALTERNATIVES, AND BENEFITS ASSOCIATED WITH THIS PROCEDURE. THE PATIENT WOULD LIKE TO PROCEED AND GIVE CONSENT TO PERFORMED THE PROCEDURE. THE PATIENT WOULD LIKE TO MOVE FORWAD WITH IV SEDATION DUE TO ANXIETY AND DISCOMFORT ASSOCIATED WITH THE PROCEDURE. THE PATIENT DENIES UNEXPLAINABLE WEIGHT LOSS, FEVER, CHILLS, OR CHANGES IN URINARY OR BOWEL CONTROL. THE PATIENT IS COVID-19 NEGATIVE DESCRIPTION OF PROCEDURE THE PATIENT WAS BROUGHT TO THE PROCEDURE ROOM AND PLACED IN THE PRONE POSITION. THE LUMBOSACRAL AREA WAS CLEANED WITH BETADINE SOLUTION AND DRAPED ASEPTICALLY. THE PROCEDURE WAS DONE UNDER STERILE CONDITIONS. A TIMEOUT WAS PERFORMED WHERE THE CONSENTED SITE WAS VERIFIED WITH EVERYONE IN THE ROOM. UNDER FLUOROSCOPIC GUIDANCE, THE TARGET POINT WAS SELECTED AT THE LEFT TRANSFORAMINAL OPENING OF L4 AND THE LEFT TRANSFORAMINAL OPENING OF L5. TARGET POINT WAS SELECTED AFTER LATERAL ROTATION AND TILT OF THE MAGNIFIER OF THE C-ARM. I CONFIRMED AGAIN THE SITE OF TARGET. LIDOCAINE 0.5% WAS USED TO NUMB THE SKIN AND THE SUBCUTANEOUS TISSUE BELOW IT. AN EPIMED INTRODUCER, 18-GAUGE, WAS ADVANCED UNTIL I WENT CLOSE TO THE SELECTED TRANSFORAMINAL OPENINGS. AFTER PROPER POSITION OF THE NEEDLES WAS ACHIEVED, A 22-GAUGE, EPIMED NEEDLE, WAS PLACED INSIDE OF THE INTRODUCER AND ADVANCED TO THE TRANSFORAMINAL OPENING OF THE SELECTED SITES. WHEN PROPER POSITION OF THE NEEDLE WAS ACHIEVED, ISOVUE-M DYE 30%, 0.25 ML, WAS INJECTED SHOWING ADEQUATE SPREAD OF THE DYE. THIS WAS DONE UNDER DIGITAL SUBTRACTION AND ANGIOGRAPHY. THERE WAS NO VASCULAR UPDATE. THEN, A SOLUTION OF 2 ML OF BUPIVACAINE 0.25% AND DEXAMETHASONE 5 MG WAS INJECTED AT EACH SITE. THE MEDICATION WAS VERIFIED WITH THE NURSE. THERE WAS NO EVIDENCE OF BLOOD, PARESTHESIA OR CEREBROSPINAL FLUID DURING THE PROCEDURE. THE PATIENT WAS SENT TO THE RECOVERY ROOM. THE PATIENT WAS MOVING THE EXTREMITIES AND DOING WELL. THERE WAS NO COMPLICATION DURING THE PROCEDURE. ESTIMATED BLOOD LOSS WAS LESS THAN 5 ML. FLUOROSCOPY TIME WAS 1 MINUTE 18 SECONDS. THE PATIENT RECEIVED VERSED 3 MG AND FENTANYL 200 MCG IV IN DIVIDED DOSES. FACE TO FACE START TIME: 1440 FACE TO FACE END TIME: 1458 TOTAL FACE TO FACE TIME: 18 MINUTES. POST PROCEDURE NOTE THE PROCEDURE DONE WAS DISCUSSED WITH THE PATIENT. THE PATIENT WILL BE SEEN IN A FOLLOW UP IN THE NEXT FEW WEEKS. I AM LOOKING FOR LONG LASTING PAIN RELIEF FOR THE PATIENT WITH THIS INTERVENTION. INSTRUCTIONS WERE GIVEN, QUESTIONS WERE ANSWERED, AND THE PATIENT EXPRESSED UNDERSTANDING AND AGREES WITH THE PLAN. I, KRISTA SANTAMARIA, DOCUMENTED THE ABOVE INFORMATION ACTING A SCRIBE FOR DR. QUIROGA. I HAVE REVIEWED THE ABOVE DOCUMENT, WRITTEN BY KRISTA SANTAMARIA, UTILITIES MANAGER, AND I VERIFY THAT IT IS ACCURATE VISIT CODES PROCEDURE CODES 98263 MOD SED SAME PHYS/QHP 5/>YRS 60377 INJ FORAMEN EPIDURAL L/S, MODIFIERS: [place] [address] INJ FORAMEN EPIDURAL ADD-ON, MODIFIERS: LT DISPOSITION & COMMUNICATION FOLLOW UP FOLLOW UP WITH HOUSEHOLD APPLIANCE ASSEMBLER (REASON: POST LEFT TRANSFORAMINAL EPIDURAL STEROID INJECTION) ELECTRONICALLY SIGNED BY CATHY QUIROGA MD, MD ON 02/17/2021 AT 02:09 PM EDT DISCLAIMER : THIS IS A VISIT SUMMARY EXTRACTED FROM THE [employer] CHART. IT IS NOT A COPY OF THE [employer] PROGRESS NOTE. STANLEYD
== END ==
LOC: M PAIN 11:40
PROVIDERS: ATTEND Anesthesiology
DX: M51.16 Intervertebral disc disorders with radiculopathy, lumbar region (principal); G43.909 Migraine, unspecified, not intractable, without status migrainosus; Z86.59 Personal history of other mental and behavioral disorders; Z87.891 Personal history of nicotine dependence; Z88.8 Allergy status to other drugs, medicaments and biological substances; Z91.09 Other allergy status, other than to drugs and biological substances; Z79.899 Other long term (current) drug therapy
CPT/HCPCS: 64483; 64484; 99152; J1100; J2250; J3010; Q9967

== ENCOUNTER → 2021-02-27 | Outpatient (CLI) | payer OTHER ==
[~2021-02-27] MED LIST changes: -BUPIVACAINE HCL 0.25% 30ML VIAL As Ordered ONE; -ISOVUE-M 300 61% 15ML VIAL As Ordered ONE; -LIDOCAINE 1% SDV 30ML VIAL As Ordered ONE; -MIDAZOLAM INJ 2MG/2ML VIAL (J2250 PER 1MG) As Ordered ONE; -dexameTHASONE 10MG/1ML VIAL PRES.FREE (J1100 PER 1MG) As Ordered ONE; -fentaNYL 100 MCG/2 ML INJECTION (J3010) As Ordered ONE; -oxyCODONE 5MG TAB As Ordered ONE
--- NOTE | 2021-02-27 08:57 | REPMRS ---
Patient History The patient states she had a clinical breast exam in 2020. No known family history of cancer. Tomosynthesis is performed. Volpara breast density is c. Tyrer-zick lifetime risk of breast cancer 9.5%. Indicated problem(s): left breast pain for 1 weeks. Patient states she currently has had left nipple pain for one week. Patient has signed the [facility] history sheet Diagnostic Bilateral Mammo: February 27, 2021 - Exam #: [id number] Bilateral CC and MLO view(s) were taken. Technologist: Charlene Gipson, Technologist No prior studies available for comparison. FINDINGS: The breast tissue is heterogeneously dense. This may lower the sensitivity of mammography. There is a moderate amount of residual fibroglandular tissue which is fairly symmetric. There is no dominant mass, areas of architectural distortion, or clustered microcalcification typical of malignancy. Assessment: BI-RADS/ACR category 1 mammogram. Negative Mammogram. Recommendation Routine screening mammogram in 1 year (for women over age 40). This mammogram was interpreted with the aid of an FDA-approved computer-aided dectection system. Electronically Signed By: Marcellus Mcintosh MD 02/27/21 0857
== END ==
LOC: M WHC 07:46
PROVIDERS: ATTEND Family Medicine
DX: N64.4 Mastodynia (principal)
CPT/HCPCS: 77066; G0279

== ENCOUNTER → 2021-03-24 | Outpatient (CLI) | payer BC ==
[~2021-03-24] MED LIST changes: +AZEL1SPR3; +FLUO10CA18 PO; +HYDR-4517 PO; +HYDR12.55 PO; +LOSA25TA13 PO; +PANT20TA6 PO
== END ==
LOC: M PAIN 13:45
PROVIDERS: ATTEND Anesthesiology
DX: G89.29 Other chronic pain (principal); M51.16 Intervertebral disc disorders with radiculopathy, lumbar region; G43.909 Migraine, unspecified, not intractable, without status migrainosus; F41.9 Anxiety disorder, unspecified; R10.13 Epigastric pain; K75.81 Nonalcoholic steatohepatitis (NASH); I10 Essential (primary) hypertension; J30.2 Other seasonal allergic rhinitis; Z79.891 Long term (current) use of opiate analgesic; Z79.899 Other long term (current) drug therapy; Z87.891 Personal history of nicotine dependence; Z88.8 Allergy status to other drugs, medicaments and biological substances; Z91.048 Other nonmedicinal substance allergy status

== ENCOUNTER → 2021-05-11 | Outpatient (CLI) | payer BC ==
[~2021-05-11] MED LIST changes: -AZEL1SPR3; -FLUO10CA18 PO; -HYDR-4517 PO; -HYDR12.55 PO; -LOSA25TA13 PO; -PANT20TA6 PO
== END ==
LOC: M PAIN 09:45
PROVIDERS: ATTEND Anesthesiology
DX: M51.16 Intervertebral disc disorders with radiculopathy, lumbar region (principal); G43.909 Migraine, unspecified, not intractable, without status migrainosus; F41.9 Anxiety disorder, unspecified; K75.81 Nonalcoholic steatohepatitis (NASH); I10 Essential (primary) hypertension; J30.1 Allergic rhinitis due to pollen; R10.13 Epigastric pain; Z87.891 Personal history of nicotine dependence; Z79.891 Long term (current) use of opiate analgesic; Z79.899 Other long term (current) drug therapy; Z88.8 Allergy status to other drugs, medicaments and biological substances; Z91.048 Other nonmedicinal substance allergy status

== ENCOUNTER → 2021-05-31 | Outpatient (CLI) | payer BC ==
[~2021-05-31] MED LIST changes: +AZEL1SPR3; +HYDR-4517 PO; +HYDR12.55 PO; +LOSA25TA14 PO; +PANT20TA6 PO
== END ==
LOC: M LABSMTC 09:35
PROVIDERS: ATTEND Anesthesiology
DX: Z01.812 Encounter for preprocedural laboratory examination (principal); Z20.822 Contact with and (suspected) exposure to COVID-19

== ENCOUNTER 2021-06-05 07:32 | Day surgery (SDC) | payer BC ==
[~2021-06-05] VITALS: Ht 170.2 cm; Wt 87.9 kg
[2021-06-05] VITALS (7 sets, daily range): BP systolic 118–128; BP diastolic 73–77
[~2021-06-05 07:32] MED LIST changes: +LIDOCAINE 1% MDV 20ML VIAL SQ PRN; +LR 1,000 ML IV ONE
--- OUTSIDE RECORDS SUMMARY | 2021-06-05 07:38 | CCD ---
Author Author [facility] Organization [facility] Address Unknown Phone Unavailable Care Team Providers Care Hot Tar Roofer Name Role Phone Paulina Rich Unavailable PROBLEMS Type Condition ICD9-CM Code [id number] Code Onset Dates Condition S tatus W/U Status Risk SNOMED Code Notes Problem Intervertebral disc disorder with radiculopathy of lumbosacral region M51.17 Active confirmed 15099914 Problem Protrusion of lumbar intervertebral disc M51.26 Active confirmed 234055877 Problem Bilateral carpal tunnel syndrome G56.03 Active confirmed 73849311033836354 Problem Intractable migraine without status migrainosus, unspecified migraine type G43.919 Active confirmed 950496960 Problem Spondylosis without myelopathy or radiculopathy, lumbar region M47.816 Active confirmed 891893206 Problem Chronic rhinitis J31.0 Active confirmed 860 41823 Problem Intervertebral disc disorders with radiculopathy , lumbosacral region M51.17 Active confirmed 85296452630401753 Problem Anxiety F41.9 Active confirmed 06035905 Problem Sacroiliitis M46.1 Active confirmed 6220581 9 Problem Generalized anxiety disorder F41.1 Active confirme d 69862574 Problem Other chronic pain G89.29 Active confirmed 8 9658052 Problem Other obesity due to excess calories E66.09 Act marisol confirmed 099086698 Problem Neuropathy G62.9 Active confirmed 159255119 Problem Hypoactive sexual desire disorder F52.0 Active confirmed 861756706 Problem Migraine without aura and without status migrain osus, not intractable G43.009 Active confirmed 838940178 Problem BMI 30.0-30.9,adult Z68.30 Active confirmed 102361157 Problem Intervertebral disc disorders with radiculopathy , lumbar region M51.16 Active confirmed 778933473024649 Problem Stress incontinence of urine N39.3 Active confirme d 36067498 Problem Spondylosis of lumbosacral joint M47.817 Active confirmed 132517104 Problem Gastroesophageal reflux dise ase, unspecified whether esophagitis present K21.9 Active confirmed 444786151 Problem 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 Active confirmed 424211520 Problem Spondylosis without myelopathy or radiculopathy, lumbosacral region M47.817 Active confirmed 55907961 Problem Essential hypertension I10 Active confirmed 44950350 ALLERGIES Allergen (clinical drug ingredient) Drug/Non Drug Allergy do cumented on EMR Reaction Allergy Type Onset Date Status gabapentin gabapentin vivid dreams Non Drug Allergy Active seasonal SNEZZING Non Drug Allergy Active Bleach Bleach smell causes Nausea/Vomiting, re dness and swelling Non Drug Allergy Active duloxetine Cymbalta([facility] Code:[address]-73) N/V Drug Allergy Active Gold Gold rash Non Drug Allergy Active ENCOUNTERS from 1979 to 2021-04-03 Encounter Location Date Provider Diagnosis [facility] [address] [facility] [phone] [place] [address] Mar, Paulina Menezesjaylan IMMUNIZATIONS Vaccine Route Administration Date Status COVID-19 dose #1 given elsewhere Unspecified Unknown Sep 2020 Administered Influenza 18 yrs & older Flublok IM Intramuscular May 25, 2019 Administered Influenza 6mo & up Fluzone IM Intramuscular Apr 17, 2017 Admi nistered Influenza 6mo & up Fluzone IM Intramuscular Jul 03, 2016 Admi nistered SOCIAL HISTORY Tobacco Use: Social History Observation Description Date Details (start date - stop date) Former Smoker Sex Assigned At : Social History Observation Description Sex Assigned At Unknown Education: Question Answer Notes Level of Education: Not Finished College Audit Question Answer Notes Total Score: 1 Interpretation: Alcohol Education Language: Question Answer Notes Languages spoken: Cuban Muslim: Question Answer Notes Muslim 33 None Domestic Violence: Question Answer Notes Status: Sexual Hx: Question Answer Notes Had sex in the last 12 months (vaginal, oral, or anal)? Yes LMP: 08/29/2016 Have you ever had an STD? No Prevention Strategies discussed: Condoms with Men only Use protection? No Drug and Alcohol Question Answer Notes Total Score: 0 Interpretation: No problems reported Alcohol Screening: Question Answer Notes Did you have a drink containing alcohol in the past year? Ye s Points 1 Interpretation Negative How often did you have six or more drinks on one occas ion in the past year? Never (0 points) How many drinks did you have on a typica l day when you were drinking in the past year? 1 or 2 (0 points) How often did you have a drink containing alcohol in t he past year? Monthly or less (1 point) BMI Care Goal Follow-Up Question Answer Notes Above Normal BMI Follow-Up Dietary needs education Tobacco Use: Question Answer Notes Are you a: former smoker Smoking Cessation Information Given 05/10/2017 How long has it been since you last smoked? 1-5 years REASON FOR REFERRAL No Information VITAL SIGNS No information MEDICATIONS Medication SIG (Take, Route, Frequency, Duration) Notes Start Da te End Date Status Carisoprodol 350 MG 1 tablet as needed Orally fo r spasms and pain every 8 hours as needed MDD3 Feb, Not-Taking HYDROcodone-Acetaminophen 10-325 MG 1 tablet as needed Orally q6h prn mdd4 for 30 days Mar, Active Phentermine HCl 37.5 MG 1 capsule Orally Once a day; do not fill before 02/23/2021 for 30 Days Feb, Active Pantoprazole Sodium 20 MG Take 1 tablet by mouth once daily for 30 Active Triamcinolone Acetonide 0.1 % 1 application Externally Twice a d ay Jan, Not-Taking Excedrin Migraine 250-250-65 MG 2 tablets as needed Orally every 6 hr s Active Azelastine HCl 0.1 % 1 puff in each nostril Nasally Twice a day for 30 day(s) Jan, Not-Taking Losartan Potassium 25 mg 1 tablet Orally Once a day Active hydroCHLOROthiazide 12.5 MG 1 tablet in the morning Orally Once a day Oct, Active PROCEDURES No Information RESULTS No Results REASON FOR VISIT Name change MEDICAL (GENERAL) HISTORY Type Description Date Medical History Tendonitis- mirian knee Medical History Migraines Medical History Urinary stress incontinence Medical History Anxiety, ?PTSD Medical History History of tobacco use Medical History Dyspepsia Medical History GRANADOS Medical History Bilateral carpal tunnel syndrome Medical History Chronic back pain, lumbar DDD with radic ulopathy Medical History hypoactive sexual disorder Medical History HTN Surgical History Left buttock abscess removal Surgical History Right thigh abscess removal Surgical History BTL 2009 Surgical History all teeth removed Hospitalization History related to surgery Goals Section No Information Health Concerns No Information MEDICAL EQUIPMENT No Information MENTAL STATUS No Information FUNCTIONAL STATUS No Information ASSESSMENTS No Information PLAN OF TREATMENT Next Appt Details Provider Name:Paulina Rich, 2021-05-23 07:30:00 AM, [address] [facility], , [place], [address], Provider Name:Jeffrey Murphy, 2021-07-20 10:30:00 AM, [address] [facility] [address] [facility], , [place], [address], Insurance Providers Payer Name Payer Address Payer Phone Insured Name Patient Relati onship to Insured Coverage Start Date Coverage End Date [facility] [phone] [facility] [phone] MIKE HERRON self
--- OUTSIDE RECORDS SUMMARY | 2021-06-05 07:38 | CCD ---
Author Author [facility] Organization [facility] Address Unknown Phone Unavailable Care Team Providers Care Pathology Collector Name Role Phone Paulina Rich Unavailable PROBLEMS Type Condition ICD9-CM Code WWA15-EV Code Onset Dates Condition S tatus W/U Status Risk SNOMED Code Notes Problem Intervertebral disc disorder with radiculopathy of lumbosacral region M51.17 Active confirmed 64674714 Problem Protrusion of lumbar intervertebral disc M51.26 Active confirmed 943288097 Problem Bilateral carpal tunnel syndrome G56.03 Active confirmed 63675122455317942 Problem Intractable migraine without status migrainosus, unspecified migraine type G43.919 Active confirmed 460691831 Problem Spondylosis without myelopathy or radiculopathy, lumbar region M47.816 Active confirmed 703855081 Problem Chronic rhinitis J31.0 Active confirmed 860 54846 Problem Intervertebral disc disorders with radiculopathy , lumbosacral region M51.17 Active confirmed 50956396147709092 Problem Anxiety F41.9 Active confirmed 74501172 Problem Sacroiliitis M46.1 Active confirmed 6772388 9 Problem Generalized anxiety disorder F41.1 Active confirme d 33047206 Problem Other chronic pain G89.29 Active confirmed 8 1257361 Problem Other obesity due to excess calories E66.09 Act marisol confirmed 808995445 Problem Neuropathy G62.9 Active confirmed 367960703 Problem Hypoactive sexual desire disorder F52.0 Active confirmed 684788215 Problem Migraine without aura and without status migrain osus, not intractable G43.009 Active confirmed 506029330 Problem BMI 30.0-30.9,adult Z68.30 Active confirmed 909902631 Problem Intervertebral disc disorders with radiculopathy , lumbar region M51.16 Active confirmed 389722209587852 Problem Stress incontinence of urine N39.3 Active confirme d 06082626 Problem Spondylosis of lumbosacral joint M47.817 Active confirmed 087530033 Problem Gastroesophageal reflux dise ase, unspecified whether esophagitis present K21.9 Active confirmed 694600983 Problem 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 Active confirmed 383846366 Problem Spondylosis without myelopathy or radiculopathy, lumbosacral region M47.817 Active confirmed 04479139 Problem Essential hypertension I10 Active confirmed 92086521 ALLERGIES Allergen (clinical drug ingredient) Drug/Non Drug Allergy do cumented on EMR Reaction Allergy Type Onset Date Status gabapentin gabapentin vivid dreams Non Drug Allergy Active seasonal SNEZZING Non Drug Allergy Active Bleach Bleach smell causes Nausea/Vomiting, re dness and swelling Non Drug Allergy Active duloxetine Cymbalta([facility] Code:[address]-23) N/V Drug Allergy Active Gold Gold rash Non Drug Allergy Active ENCOUNTERS from 1979 to 2021-04-04 Encounter Location Date Provider Diagnosis [facility] [address] [facility] [phone] [place] [address] 24 Mar, 2021 Paulina Menezespton Right wrist tendonitis M77.8 and De Quervain's tenosynovitis, right M65.4 IMMUNIZATIONS Vaccine Route Administration Date Status COVID-19 [...] Education Language: Question Answer Notes Languages spoken: Kittitian Lutheran: Question Answer Notes Lutheran 33 None Domestic Violence: Question Answer Notes [...] REASON FOR REFERRAL No Information VITAL SIGNS Weight 182 lbs Mar, Height 67 in Mar, BMI 28.50 kg/m2 Mar, Heart Rate 96 /min Mar, Respiratory Rate 18 /min Mar, Temperature 96.7 degrees Fahrenheit Mar, Oximetry 99 Mar, Blood pressure systolic 122 mm Hg Mar, Blood pressure diastolic 80 mm Hg Mar, MEDICATIONS Medication SIG (Take, Route, Frequency, Duration) [...] Information RESULTS No Results REASON FOR VISIT right wrist pain MEDICAL (GENERAL) HISTORY Type Description Date Medical [...] Right thigh abscess removal Surgical History BTL 2008 Surgical History all teeth removed Hospitalization History related to surgery Goals Section No Information Health Concerns No Information MEDICAL EQUIPMENT No Information MENTAL STATUS No Information FUNCTIONAL STATUS No Information ASSESSMENTS Encounter Date Diagnosis Assessment Notes Treatment Notes Treatm ent Clinical Notes Mar, Right wrist tendonitis (ICD-10 - M77.8) Advised rest and 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 Advised NSAIDs and heat for pain. Mar, De Quervain's tenosynovitis, right (ICD-10 - M65 .4) Advised rest, continue with wrist splint. I offered referral to Ortho for corticosteroid injection, which she declined. 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 Advised NSAIDs and heat for pain. De Quervain's tenosynovitis, right Advis ed rest, continue with wrist splint. I offered referral to Ortho for corticosteroid injection, which she declined. Next Appt Details as sched 05/23 Reason: Provider Name:Paulina Rich, 2021-05-23 07:30:00 AM, [address] [facility], , [place], [address], Provider Name:Jeffrye Murphy, 2021-07-20 10:30:00 AM, [address] [facility] 3rd Floor, , [place], [address], Insurance Providers Payer Name Payer Address Payer Phone Insured Name Patient Relati onship to Insured Coverage Start Date Coverage End Date [facility] [phone] [facility] [phone] MIKE HERRON self
--- OUTSIDE RECORDS SUMMARY | 2021-06-05 07:38 | CCD ---
Author Author [facility] Organization [facility] Address Unknown Phone Unavailable Care Team Providers Care Rfid Strategist Name Role Phone Dolores Dent Unavailable PROBLEMS Type Condition ICD9-CM Code [id number] Code Onset Dates Condition S tatus W/U Status Risk SNOMED Code Notes Problem Intervertebral disc disorders with radiculopathy , lumbar region M51.16 Active confirmed 386988220250713 Problem Hypoactive sexual desire disorder F52.0 Active confirmed 353222346 Problem Generalized anxiety disorder F41.1 Active confirme d 83818527 Problem Migraine without aura and without status migrain osus, not intractable G43.009 Active confirmed 249484098 Problem Overweight (BMI 25.0-29.9) E66.3 Active confirmed 977152132 Problem Intervertebral disc disorders with radiculopathy , lumbosacral region M51.17 Active confirmed 88650313165269661 Problem Obesity (BMI 30.0-34.9) E66.9 Active confirmed 532885323444168 Problem Chronic rhinitis J31.0 Active confirmed 860 87737 Problem Other chronic pain G89.29 Active confirmed 8 4245455 Problem Gastroesophageal reflux dise ase, unspecified whether esophagitis present K21.9 Active confirmed 047080661 Problem Essential hypertension I10 Active confirmed 78446203 Problem 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.211 Active confirmed 942850492 ALLERGIES Allergen (clinical drug ingredient) Drug/Non Drug Allergy do cumented on EMR Reaction Allergy Type Onset Date Status Gold Gold-containing Drug Products rash Drug Allergy Active Bleach Bleach smell causes Nausea/Vomiting, re dness and swelling Non Drug Allergy Active Pollen Pollen SNEZZING Drug Allergy Active duloxetine Cymbalta([facility] Code:[address]-74) N/V Drug Allergy Active gabapentin Gabapentin([facility] Code:[address]-63) vivid dreams Drug Aller gy Active ENCOUNTERS from 1979 to 2021-05-31 Encounter Location Date Provider Diagnosis [facility] [address] Floor [phone] [place] [address] May, Dolores Dent Other chronic pain G 89.29 IMMUNIZATIONS Vaccine Route Administration Date Status COVID-19 dose #1 given elsewhere Unspecified Unknown Mar 2020 Administered Influenza 18 yrs & older [...] Education Language: Question Answer Notes Languages spoken: Belarusian Quaker: Question Answer Notes Quaker 33 None Domestic Violence: Question Answer Notes [...] Notes Start Da te End Date Status Losartan Potassium 25 mg 1 tablet Orally Once a day Active Pantoprazole Sodium 20 MG Take 1 tablet by mouth once daily Active Azelastine HCl 137 MCG/SPRAY Use 1 spray(s) in each nostril twice brigida ly Active hydroCHLOROthiazide 12.5 MG 1 tablet in the morning Orally Once a day Oct, Active HYDROcodone-Acetaminophen 10-325 MG 1 tablet as needed Orally q6h prn mdd4 for 30 days May, Active FLUoxetine HCl 10 MG 1 capsule Orally Once a day for 30 day(s) 16 May, 2021 Active Excedrin Migraine 250-250-65 MG 2 tablets as needed Orally every 6 hr s Active PROCEDURES No Information RESULTS No Results REASON FOR VISIT Refill MEDICAL (GENERAL) HISTORY Type Description Date Medical History Tendonitis- mirian knee Medical History Migraines Medical History Urinary stress incontinence Medical History Anxiety, ?PTSD Medical History History of tobacco use Medical History Dyspepsia Medical History GRANADOS Medical History Bilateral carpal tunnel syndrome Medical History Chronic back pain, lumbar DD D with radiculopathy - [facility] Medical History hypoactive sexual disorder Medical History [...] Notes Treatment Notes Treatm ent Clinical Notes May, Other chronic pain (ICD-10 - G89.29) PLAN OF TREATMENT Medication Medication Name Sig Start Date Stop Date Losartan Potassium 25 mg 1 tablet Orally Once a day HYDROcodone-Acetaminophen 10-325 MG 1 tablet as needed Orally q6h prn mdd4 for 30 days May, FLUoxetine HCl 10 MG 1 capsule Orally Once a day for 30 day(s) 1 6 May, 2021 hydroCHLOROthiazide 12.5 MG 1 tablet in the morning Orally O nce a day Oct, Pantoprazole Sodium 20 MG Take 1 tablet by mouth once daily Azelastine HCl 137 MCG/SPRAY Use 1 spray(s) in each nostril twic e daily Excedrin Migraine 250-250-65 MG 2 tablets as needed Orally every 6 hrs Next Appt Details Provider Name:Jeffrey Murphy, 2021-06-05 09:30:00 AM, [address], , [place], [address], Provider Name:Jeffrey Murphy, 2021-06-09 11:45:00 AM, [address], , [place], [address], Provider Name:Jeffrey Murphy, 2021-07-20 10:30:00 AM, [address], , [place], [address], Provider Name:Paulina Rich, 2021-08-24 07:15:00 AM, [address] [facility], , [place], [address], Insurance Providers Payer Name Payer Address Payer Phone Insured Name Patient Relati onship to Insured Coverage Start Date Coverage End Date [facility] [phone] [facility] [phone] MIKE HERRON self
--- OUTSIDE RECORDS SUMMARY | 2021-06-05 07:38 | CCD ---
Author Author [facility] Organization [facility] Address Unknown Phone Unavailable Care Team Providers Care Air Vice Marshal Name Role Phone Jeffrey Murphy Unavailable PROBLEMS ALLERGIES ENCOUNTERS from 1979 to 2021-05-14 IMMUNIZATIONS SOCIAL HISTORY REASON FOR REFERRAL No Information VITAL SIGNS MEDICATIONS PROCEDURES No Information RESULTS No Results REASON FOR VISIT MEDICAL (GENERAL) HISTORY Goals Section Health Concerns MEDICAL EQUIPMENT No Information MENTAL STATUS FUNCTIONAL STATUS ASSESSMENTS PLAN OF TREATMENT Insurance Providers
--- OUTSIDE RECORDS SUMMARY | 2021-06-05 07:38 | CCD ---
Author Author [facility] Organization [facility] [employer] Address Unknown Phone Unavailable Care Team Providers Care Professor Of Archaeology Name Role Phone Jeffrey Quiroga Unavailable PROBLEMS Type Condition ICD9-CM Code [id number] Code Onset Dates Condition S tatus W/U Status Risk SNOMED Code Notes Problem Intervertebral disc disorder with radiculopathy of lumbosacral region M51.17 Active confirmed 40017315 Problem Protrusion of lumbar intervertebral disc M51.26 Active confirmed 361582805 Problem Bilateral carpal tunnel syndrome G56.03 Active confirmed 44533436652060002 Problem Intractable migraine without status migrainosus, unspecified migraine type G43.919 Active confirmed 230342860 Problem Spondylosis without myelopathy or radiculopathy, lumbar region M47.816 Active confirmed 653757428 Problem Chronic rhinitis J31.0 Active confirmed 860 85910 Problem Intervertebral disc disorders with radiculopathy , lumbosacral region M51.17 Active confirmed 21498487699474453 Problem Anxiety F41.9 Active confirmed 02114816 Problem Sacroiliitis M46.1 Active confirmed 4129620 9 Problem Generalized anxiety disorder F41.1 Active confirme d 18507131 Problem Other chronic pain G89.29 Active confirmed 8 8954018 Problem Other obesity due to excess calories E66.09 Act marisol confirmed 331029477 Problem Neuropathy G62.9 Active confirmed 617724817 Problem Hypoactive sexual desire disorder F52.0 Active confirmed 720373243 Problem Migraine without aura and without status migrain osus, not intractable G43.009 Active confirmed 977835610 Problem BMI 30.0-30.9,adult Z68.30 Active confirmed 803844717 Problem Intervertebral disc disorders with radiculopathy , lumbar region M51.16 Active confirmed 171873250139662 Problem Stress incontinence of urine N39.3 Active confirme d 71012052 Problem Spondylosis of lumbosacral joint M47.817 Active confirmed 125537774 Problem Gastroesophageal reflux dise ase, unspecified whether esophagitis present K21.9 Active confirmed 518085453 Problem 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 Active confirmed 122475364 Problem Spondylosis without myelopathy or radiculopathy, lumbosacral region M47.817 Active confirmed 59847205 Problem Essential hypertension I10 Active confirmed 93943901 ALLERGIES Allergen (clinical drug ingredient) Drug/Non Drug Allergy do cumented on EMR Reaction Allergy Type Onset Date Status gabapentin gabapentin vivid dreams Non Drug Allergy Active seasonal SNEZZING Non Drug Allergy Active Bleach Bleach smell causes Nausea/Vomiting, re dness and swelling Non Drug Allergy Active duloxetine Cymbalta([facility] Code:[address]-20) N/V Drug Allergy Active Gold Gold rash Non Drug Allergy Active ENCOUNTERS from 1979 to 2021-03-26 Encounter Location Date Provider Diagnosis [facility] [address] [facility] 3rd Floor [phone] [place] [address] 17 Mar, 2021 Jeffrey Katherine Other chronic pain G 89.29 and Intervertebral disc disorders with radiculopathy, lumbar region M51.16 IMMUNIZATIONS Vaccine Route Administration Date Status COVID-19 dose #1 given elsewhere Unspecified Unknown Sep Administered Influenza 18 yrs & older Flublok [...] Education Language: Question Answer Notes Languages spoken: Nepali Voodoo: Question Answer Notes Voodoo 33 None Domestic Violence: Question Answer Notes [...] FOR REFERRAL No Information VITAL SIGNS Weight 183.0 lbs Mar, Weight-kg 83.01 kg Mar, Height 67 in Mar, BMI 28.66 kg/m2 Mar, Heart Rate 100 /min Mar, Respiratory Rate 18 /min Mar, Temperature 98.1 degrees Fahrenheit Mar, Oximetry 100% Mar, Blood pressure systolic 132 mm Hg Mar, Blood pressure diastolic 81 mm Hg Mar, MEDICATIONS Medication SIG (Take, Route, Frequency, Duration) Notes Start Da te End Date Status Carisoprodol 350 MG 1 tablet as needed Orally fo r spasms and pain every 8 hours as needed MDD3 Feb, Not-Taking HYDROcodone-Acetaminophen 10-325 MG 1 tablet as needed Orally q6h prn mdd4 for 30 days Mar, Active Triamcinolone Acetonide 0.1 % 1 application Externally Twice a d ay Jan, Not-Taking Excedrin Migraine 250-250-65 MG 2 tablets as needed Orally every 6 hr s Active Losartan Potassium 25 mg 1 tablet Orally Once a day Active Phentermine HCl 37.5 MG 1 capsule Orally Once a day; do not fill before 02/23/2021 for 30 Days Feb, Active hydroCHLOROthiazide 12.5 MG 1 tablet in the morning Orally Once a day Oct, Active Azelastine HCl 0.1 % 1 puff in each nostril Nasally Twice a day for 30 day(s) Jan, Not-Taking Pantoprazole Sodium 20 MG Take 1 tablet by mouth once daily for 30 Active PROCEDURES No Information RESULTS No Results REASON FOR VISIT POST Left transforaminal epidural steroid injection L4-L5, L5-S1 with IV sedatio n MEDICAL (GENERAL) HISTORY Type Description Date Medical [...] Treatment Notes Treatm ent Clinical Notes Mar, Other chronic pain (ICD-10 - G89.29) Mar, Intervertebral disc disorder s with radiculopathy, lumbar region (ICD-10 - M51.16) I discussed alternatives with Ms. Lai. The patient is doing well right now but the patient reports that the injections usually do not work for more than 2 months. She is looking for something that lasts longer which is why we are looking into spinal column stimulator trial. The patient was sent for a surgical evaluation and the surgeon stated that she is not a surgical candidate and advised that she do the spinal column stimulator trial. I reviewed the psychological evaluation dated 01/17/2021 and the thoracic MRI and lumbar MRI. I will request authorization for a dorsal column stimulator trial. I had a conversation about the narcotics. We talked about tolerance, safety and that she needs to keep it in a safe place. We decided that she will reduce from 120 to 110 tablets per month. The patient reports understanding and agrees with the plan. I, Virginia Mustafa, documented the above information acting as a scribe for Dr. Quiroga. I have reviewed the above document, written by Virginia ruiz, medical record librarian, and I verify that it is accurate. PLAN OF TREATMENT Medication Medication Name Sig Start Date Stop Date HYDROcodone-Acetaminophen 10-325 MG 1 tablet as needed Orally q6h prn mdd4 for 30 days Mar, Treatment Notes Assessment Notes Clinical Notes Intervertebral disc disorders with radiculopathy, lumbar reg ion I discussed alternatives with Ms. Lai. The patient is doing well right now but the patient reports that the injections usually do not work for more than 2 months. She is looking for something that lasts longer which is why we are looking into spinal column stimulator trial. The patient was sent for a surgical evaluation and the surgeon stated that she is not a surgical candidate and advised that she do the spinal column stimulator trial. I reviewed the psychological evaluation dated 01/17/2021 and the thoracic MRI and lumbar MRI. I will request authorization for a dorsal column stimulator trial. I had a conversation about the narcotics. We talked about tolerance, safety and that she needs to keep it in a safe place. We decided that she will reduce from 120 to 110 tablets per month. The patient reports understanding and agrees with the plan. I, Virginia Mustafa, documented the above information acting as a scribe for Dr. Quiroga. I have reviewed the above document, written by Virginia Mustafa, medical record librarian, and I verify that it is accurate. Treatment Notes Test Name Order Date Pain Procedure Log 2021-03-24 Next Appt Details Request auth for DCS trial. PER DR. IRENE SINGH MAY HAVE S.F. VISIT IF NEEDED TO BOOK POTENTIAL FUTURE PROCEDURE PRIOR TO DCS. Reason:Request auth for DCS trial Provider Name:Paulina Rich, 2021-05-23 07:30:00 AM, [address] [facility], , [place], [address], Provider Name:Jeffrey Quiroga, 2021-07-20 10:30:00 AM, [address] [facility] 3[address], , [place], [address], Follow Up:Request auth for DCS trial. PER DR. QUIROGA MAY HAVE S.F. VISIT IF NEEDED TO BOOK POTENTIAL FUTURE PROCEDURE PRIOR TO DCS.Request auth for DCS trial Insurance Providers Payer Name Payer Address Payer Phone Insured Name Patient Relati onship to Insured Coverage Start Date Coverage End Date [facility] [phone] [facility] [id number] MIKE LAI self
--- OUTSIDE RECORDS SUMMARY | 2021-06-05 07:38 | CCD ---
Author Author [facility] Organization [facility] [employer] [facility] Address Unknown Phone Unavailable Care Team Providers Care Therapeutic Specialist Name Role Phone Paulina Rich Unavailable PROBLEMS Type Condition ICD9-CM Code [id number] Code Onset Dates Condition S tatus W/U Status Risk SNOMED Code Notes Problem Intervertebral disc disorder with radiculopathy of lumbosacral region M51.17 Active confirmed 30940809 Problem Protrusion of lumbar intervertebral disc M51.26 Active confirmed 326750012 Problem Bilateral carpal tunnel syndrome G56.03 Active confirmed 53342890051084310 Problem Intractable migraine without status migrainosus, unspecified migraine type G43.919 Active confirmed 109936390 Problem Spondylosis without myelopathy or radiculopathy, lumbar region M47.816 Active confirmed 131912374 Problem Chronic rhinitis J31.0 Active confirmed 860 81458 Problem Intervertebral disc disorders with radiculopathy , lumbosacral region M51.17 Active confirmed 65908552568965880 Problem Anxiety F41.9 Active confirmed 54630173 Problem Sacroiliitis M46.1 Active confirmed 0213349 9 Problem Generalized anxiety disorder F41.1 Active confirme d 47613952 Problem Other chronic pain G89.29 Active confirmed 8 8488231 Problem Other obesity due to excess calories E66.09 Act marislo confirmed 293294935 Problem Neuropathy G62.9 Active confirmed 452871336 Problem Hypoactive sexual desire disorder F52.0 Active confirmed 642676199 Problem Migraine without aura and without status migrain osus, not intractable G43.009 Active confirmed 449517442 Problem BMI 30.0-30.9,adult Z68.30 Active confirmed 892394181 Problem Intervertebral disc disorders with radiculopathy , lumbar region M51.16 Active confirmed 336769327084603 Problem Stress incontinence of urine N39.3 Active confirme d 41082310 Problem Spondylosis of lumbosacral joint M47.817 Active confirmed 304138316 Problem Gastroesophageal reflux dise ase, unspecified whether esophagitis present K21.9 Active confirmed 645989394 Problem 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 Active confirmed 632821874 Problem Spondylosis without myelopathy or radiculopathy, lumbosacral region M47.817 Active confirmed 54729144 Problem Essential hypertension I10 Active confirmed 71427263 ALLERGIES Allergen (clinical drug ingredient) Drug/Non Drug Allergy do cumented on EMR Reaction Allergy Type Onset Date Status gabapentin gabapentin vivid dreams Non Drug Allergy Active seasonal SNEZZING Non Drug Allergy Active Bleach Bleach smell causes Nausea/Vomiting, re dness and swelling Non Drug Allergy Active duloxetine Cymbalta([facility] Code:[address]-83) N/V Drug Allergy Active Gold Gold rash Non Drug Allergy Active ENCOUNTERS from 1979 to 2021-03-27 Encounter Location Date Provider Diagnosis [facility] [address] [facility] [phone] [place] [address] 17 Mar, 2021 Paulina Layla IMMUNIZATIONS Vaccine Route Administration Date Status COVID-19 [...] Education Language: Question Answer Notes Languages spoken: Albanian Restorationist: Question Answer Notes Restorationist 33 None Domestic Violence: Question Answer Notes [...] Information RESULTS No Results REASON FOR VISIT Appt issues/referral MEDICAL (GENERAL) HISTORY Type Description Date Medical [...] Information ASSESSMENTS No Information PLAN OF TREATMENT Medication Medication Name Sig Start Date Stop Date HYDROcodone-Acetaminophen 10-325 MG 1 tablet as needed Orally q6h prn mdd4 for 30 days Mar, Next Appt Details Provider Name:Paulina Rich, 2021-03-31 08:00:00 AM, [address] [place] [address], , [place], [address], Provider Name:Paulina Rich, 2021-05-23 07:30:00 AM, [address] [facility], , [place], [address], Provider Name:Jeffrey Murphy, 2021-07-20 10:30:00 AM, [address], , [place], [address], Insurance Providers Payer Name Payer Address Payer Phone Insured Name Patient Relati onship to Insured Coverage Start Date Coverage End Date [facility] [phone] [facility] [id number] MIKE LAI self
--- OUTSIDE RECORDS SUMMARY | 2021-06-05 07:38 | CCD ---
Author Author [facility] Organization [facility] Address Unknown Phone Unavailable Care Team Providers Care Matrix Bath Attendant Name Role Phone Paulina Rich Unavailable PROBLEMS Type Condition ICD9-CM Code [id number] Code Onset Dates Condition S tatus W/U Status Risk SNOMED Code Notes Problem Intervertebral disc disorders with radiculopathy , lumbar region M51.16 Active confirmed 081386830933225 Problem Hypoactive sexual desire disorder F52.0 Active confirmed 849478436 Problem Generalized anxiety disorder F41.1 Active confirme d 02689734 Problem Migraine without aura and without status migrain osus, not intractable G43.009 Active confirmed 658492252 Problem Overweight (BMI 25.0-29.9) E66.3 Active confirmed 236317357 Problem Intervertebral disc disorders with radiculopathy , lumbosacral region M51.17 Active confirmed 38487269516242418 Problem Obesity (BMI 30.0-34.9) E66.9 Active confirmed 814945312541625 Problem Chronic rhinitis J31.0 Active confirmed 860 80469 Problem Other chronic pain G89.29 Active confirmed 8 4738243 Problem Gastroesophageal reflux dise ase, unspecified whether esophagitis present K21.9 Active confirmed 206930478 Problem Essential hypertension I10 Active confirmed 96321668 Problem 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.211 Active confirmed 710628468 ALLERGIES Allergen (clinical drug ingredient) Drug/Non Drug Allergy do cumented on EMR Reaction Allergy Type Onset Date Status Gold Gold-containing Drug Products rash Drug Allergy Active Bleach Bleach smell causes Nausea/Vomiting, re dness and swelling Non Drug Allergy Active Pollen Pollen SNEZZING Drug Allergy Active duloxetine Cymbalta([facility] Code:[address]-14) N/V Drug Allergy Active gabapentin Gabapentin([facility] Code:[address]-23) vivid dreams Drug Aller gy Active ENCOUNTERS from 1979 to 2021-05-24 Encounter Location Date Provider Diagnosis [facility] Gil [address] [facility] [phone] [place] [address] 16 May, [facility] Annual physical exam Z00.00 ; Essential hypertension I10 ; Migraine without aura and without status migrainosus, not intractable G43.009 ; Chronic rhinitis J31.0 ; Gastroesophageal reflux disease, unspecified whether esophagitis present K21.9 ; Other chronic pain G89.29 ; Intervertebral disc disorders with radiculopathy, lumbosacral region M51.17 ; Intervertebral disc disorders with radiculopathy, lumbar region M51.16 ; Generalized anxiety disorder F41.1 ; Hypoactive sexual desire disorder F52.0 ; 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.211 and Obesity (BMI 30.0-34.9) E66.9 IMMUNIZATIONS Vaccine Route Administration Date Status COVID-19 [...] Education Language: Question Answer Notes Languages spoken: Lao Lutheran: Question Answer Notes Lutheran 33 None [...] FOR REFERRAL No Information VITAL SIGNS Weight 196 lbs May, Height 67 in May, BMI 30.69 kg/m2 May, Heart Rate 90 /min May, Respiratory Rate 18 /min May, Temperature 97 degrees Fahrenheit May, Oximetry 100 May, Blood pressure systolic 134 mm Hg May, Blood pressure diastolic 80 mm Hg May, MEDICATIONS Medication SIG (Take, Route, Frequency, Duration) Notes Start Da te End Date Status hydroCHLOROthiazide 12.5 MG 1 tablet in the morning Orally Once a day Oct, Active Pantoprazole Sodium 20 MG Take 1 tablet by mouth once daily Active Azelastine HCl 137 MCG/SPRAY Use 1 spray(s) in each nostril twice brigida ly Active FLUoxetine HCl 10 MG 1 capsule Orally Once a day for 30 day(s) May, Active Losartan Potassium 25 mg 1 tablet Orally Once a day Active HYDROcodone-Acetaminophen 10-325 MG 1 tablet as needed Orally q6 h prn mdd4 Apr, Active Excedrin Migraine 250-250-65 MG 2 tablets as needed Orally every 6 hr s Active PROCEDURES No Information RESULTS No Results REASON FOR VISIT Annual MEDICAL (GENERAL) HISTORY Type Description Date Medical History Tendonitis- mirian knee Medical History Migraines Medical History Urinary stress incontinence Medical History Anxiety, ?PTSD Medical History History of tobacco use Medical History Dyspepsia Medical History GRANADOS Medical History Bilateral carpal tunnel syndrome Medical History Chronic back pain, lumbar DD D with radiculopathy - [facility] Medical History hypoactive sexual disorder [...] Treatment Notes Treatm ent Clinical Notes May, Annual physical exam (ICD-10 - Z00.00) The [place] [employer] recommends exercise for overall cardiovascular health. Recommendation is for at least 30 minutes of moderate-intensity aerobic activity at least 5 days per week for a total of 150 minutes, or at least 25 minutes of vigorous aerobic activity at least 3 days per week for a total of 75 minutes; or a combination of moderate- and vigorous-intensity aerobic activity AND moderate- to high-intensity muscle-strengthening activity at least 2 days per week for additional health benefits. Physical activity is anything that makes you move your body and burn calories. This includes things like walking, climbing stairs, or playing sports. Aerobic exercises benefit your heart, and include walking, jogging, swimming or biking. Strength and stretching exercises are best for overall stamina and flexibility. Medical, surgical, and family histories were reviewed and updated. See preventative section. May, Essential hypertension (ICD-10 - I10) Per JNC 8 guidelines, goal BP < 140/90 in patients <60 years old; patient is meeting goal on current regimen. Advised heart-healthy diet, sodium restriction. May, Migraine without aura and wi thout status migrainosus, not intractable (ICD-10 - G43.009) Denies any recent migraines. May, Chronic rhinitis (ICD-10 - J31.0) Symptoms are controlled. May, Gastroesophageal reflux dise ase, unspecified whether esophagitis present (ICD-10 - K21.9) Symptoms are controlled. May, Other chronic pain (ICD-10 - G89.29) Follows with [facility]; has stimulator trial scheduled. May, Intervertebral disc disorder s with radiculopathy, lumbosacral region (ICD-10 - M51.17) May, Intervertebral disc disorder s with radiculopathy, lumbar region (ICD-10 - M51.16) May, Generalized anxiety disorder (ICD-10 - F41.1) I counseled the patient on the potential side effects of SSRIs, including but not limited to GI upset, sexual dysfunction, sleepiness, and increased risk of suicidality. I counseled her to call our office or 911 or go to ED if she experiences any suicidal thoughts. May, Hypoactive sexual desire disorder (ICD-10 - F52. 0) Stable, declines medication. May, Cigarette nicotine dependence in remission (ICD- 10 - F17.211) I reinforced abstinence. May, Obesity (BMI 30.0-34.9) (ICD-10 - E66.9) We had long discussion about changes in diet for weight loss, including cutting out liquid calories, cutting back on snacking, having balance of macronutrients, and eating higher protein snacks to stay full longer. PLAN OF TREATMENT Medication Medication Name Sig Start Date Stop Date hydroCHLOROthiazide 12.5 MG 1 tablet in the morning Orally O nce a day 14 Oct, 2020 Losartan Potassium 25 mg 1 tablet Orally Once a day HYDROcodone-Acetaminophen 10-325 MG 1 tablet as needed Orall y q6h prn mdd4 20 Apr, 2021 FLUoxetine HCl 10 MG 1 capsule Orally Once a day for 30 day(s) 1 6 May, 2021 Pantoprazole Sodium 20 MG Take 1 tablet by mouth once daily Azelastine HCl 137 MCG/SPRAY Use 1 spray(s) in each nostril twic e daily Excedrin Migraine 250-250-65 MG 2 tablets as needed Orally every 6 hrs Treatment Notes Assessment Notes Clinical Notes Annual physical exam The [place] [employer] on recommends exercise for overall cardiovascular health. Recommendation is for at least 30 minutes of moderate-intensity aerobic activity at least 5 days per week for a total of 150 minutes, or at least 25 minutes of vigorous aerobic activity at least 3 days per week for a total of 75 minutes; or a combination of moderate- and vigorous- intensity aerobic activity AND moderate- to high-intensity muscle-strengthening activity at least 2 days per week for additional health benefits.Physical activity is anything that makes you move your body and burn calories. This includes things like walking, climbing stairs, or playing sports. Aerobic exercises benefit your heart, and include walking, jogging, swimming or biking. Strength and stretching exercises are best for overall stamina and flexibility. Medical, surgical, and family histories were reviewed and updated. See preventative section. Essential hypertension Per JNC 8 guideli geovanny, goal BP < 140/90 in patients <60 years old; patient is meeting goal on current regimen. Advised heart-healthy diet, sodium restriction. Migraine without aura and without status migrainosus, not in tractable Denies any recent migraines. Chronic rhinitis Symptoms are control led. Gastroesophageal reflux disease, unspecified whether esophag itis present Symptoms are controlled. Other chronic pain Follows with [facility]; has stimulator trial scheduled. Generalized anxiety disorder I counseled the patient on the potential side effects of SSRIs, including but not limited to GI upset, sexual dysfunction, sleepiness, and increased risk of suicidality. I counseled her to call our offi ce or 911 or go to ED if she experiences any suicidal thoughts. Hypoactive sexual desire disorder Stable , declines medication. Cigarette nicotine dependence in remission I reinforced abstinence. Obesity (BMI 30.0-34.9) We had long disc ussion about changes in diet for weight loss, including cutting out liquid calories, cutting back on snacking, having balance of macronutrients, and eating higher protein snacks to stay full longer. Future Test Test Name Order Date Basic Metabolic Profile (BMP) [id number] Next Appt Details 3 months Reason:F/u anxiety Provider Name:Jeffrey Murphy, 2021-06-05 11:00:00 AM, [address], , [place], [address], Provider Name:Jeffrey Murphy, 2021-06-09 11:45:00 AM, [address], , [place], [address], Provider Name:Jeffrey Murphy, 2021-07-20 10:30:00 AM, [address], , [place], [address], Provider Name:Paulina Rich, 2021-08-24 07:15:00 AM, [address] [facility], , [place], [address], Follow Up:3 monthsF/u anxiety Insurance Providers Payer Name Payer Address Payer Phone Insured Name Patient Relati onship to Insured Coverage Start Date Coverage End Date [facility] [phone] [facility] [phone] MIKE HERRON self
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
--- OUTSIDE RECORDS SUMMARY | 2021-06-05 07:40 | CCD ---
Author Author [facility] Organization [facility] Address Unknown Phone Unavailable Care Team Providers Care Immigration Attorney Name Role Phone Glendy Hatch MD Unavailable Unavailable Glendy Hatch MD Unavailable Unavailable Glendy Hatch MD Unavailable Unavailable Glendy Hatch MD Unavailable Unavailable Glendy Hatch MD Unavailable Unavailable Glendy Hatch MD Unavailable Unavailable Glendy Hatch MD Unavailable Unavailable Glendy Hatch MD Unavailable Unavailable Glendy Hatch MD Unavailable Unavailable Glendy Hatch MD Unavailable Unavailable Glendy Hatch MD Unavailable Unavailable Glendy Hatch MD Unavailable Unavailable Glendy Hatch MD Unavailable Unavailable Glendy Hatch MD Unavailable Unavailable Glendy Hatch MD Unavailable Unavailable Glendy Hatch MD Unavailable Unavailable Glendy Hatch MD Unavailable Unavailable Glendy Hatch MD Unavailable Unavailable Glendy Hatch MD Unavailable Unavailable Murphy-Yadira, E Jeffrey DIAZ Unavailable Unavailable Murphy-Yadira, E Jeffrey DIAZ Unavailable Unavailable Murphy-Yadira, E Jeffrey DIAZ Unavailable Unavailable Murphy-Yadira, E Jeffrey DIAZ Unavailable Unavailable Murphy-Yadira, E Jeffrey DIAZ Unavailable Unavailable Murphy-Yadira, E Jeffrey DIAZ Unavailable Unavailable Murphy-Yadira, E Jeffrey DIAZ Unavailable Unavailable Murphy-Yadira, E Jeffrey DIAZ Unavailable Unavailable Murphy-Yadira, E Jeffrey DIAZ Unavailable Unavailable Murphy-Yadira, E Jeffrey DIAZ Unavailable Unavailable Murphy-Yadira, E Jeffrey DIAZ Unavailable Unavailable Murphy-Yadira, E Jeffrey DIAZ Unavailable Unavailable Murphy-Yadira, E Jeffrey DIAZ Unavailable Unavailable Murphy-Yadira, E Jeffrey DIAZ Unavailable Unavailable Murphy-Yadira, E Jeffrey DIAZ Unavailable Unavailable Murphy-Yadira, E Jeffrey DIAZ Unavailable Unavailable Murphy-Yadira, E Jeffrey DIAZ Unavailable Unavailable Murphy-Yadira, Glendy Murphy MD Unavailable Unavailable Aleida JONES DPM Unavailable Unavailable Aleida JONES DPM Unavailable Unavailable Aleida JONES DPM Unavailable Unavailable Aleida JONES DPM Unavailable Unavailable Aleida JONES DPM Unavailable Unavailable Aleida JONES DPM Unavailable Unavailable Aleida JONES DPM Unavailable Unavailable Aleida JONES DPM Unavailable Unavailable Aleida JONES DPM Unavailable Unavailable Aleida JONES DPM Unavailable Unavailable Aleida JONES DPM Unavailable Unavailable Aleida JONES DPM Unavailable Unavailable Aleida JONES DPM Unavailable Unavailable Aleida JONES DPM Unavailable Unavailable Aleida JONES DPM Unavailable Unavailable Aleida JONES DPM Unavailable Unavailable Aleida JONES DPM Unavailable Unavailable Aleida JONES DPM Unavailable Unavailable Aleida JONES DPM Unavailable Unavailable Aleida JONES DPM Unavailable Unavailable Aleida JONES DPM Unavailable Unavailable Aleida JONES DPM Unavailable Unavailable Aleida JONES DPM Unavailable Unavailable Aleida JONES DPM Unavailable Unavailable Aleida JONES DPM Unavailable Unavailable MAJAK, R HAI DPM Unavailable Unavailable MAJAK, R HAI DPM Unavailable Unavailable MAJAK, R HAI DPM Unavailable Unavailable MAJAK, R HAI DPM Unavailable Unavailable MAJAK, R HAI DPM Unavailable Unavailable MAJAK, R HAI DPM Unavailable Unavailable MAJAK, R HAI DPM Unavailable Unavailable Skipton, E Paulina MD Unavailable Unavailable Skipton, E Paulina MD Unavailable Unavailable Skipton, E Paulina MD Unavailable Unavailable Skipton, E Paulina MD Unavailable Unavailable Skipton, E Paulina MD Unavailable Unavailable Skipton, E Paulina MD Unavailable Unavailable Skipton, E Paulina MD Unavailable Unavailable Skipton, E Paulina MD Unavailable Unavailable Skipton, E Paulina MD Unavailable Unavailable Skipton, E Paulina MD Unavailable Unavailable Skipton, E Paulina MD Unavailable Unavailable Skipton, E Paulina MD Unavailable Unavailable Skipton, E Paulina MD Unavailable Unavailable Skipton, E Paulina MD Unavailable Unavailable Skipton, E Paulina MD Unavailable Unavailable Skipton, E Paulina MD Unavailable Unavailable Skipton, E Paulina MD Unavailable Unavailable Skipton, E Paulina MD Unavailable Unavailable Skipton, E Paulina MD Unavailable Unavailable Skipton, E Paulina MD Unavailable Unavailable Skipton, E Paulina MD Unavailable Unavailable Skipton, E Paulina MD Unavailable Unavailable Skipton, E Paulina MD Unavailable Unavailable Skipton, E Paulina MD Unavailable Unavailable Skipton, E Paulina MD Unavailable Unavailable Skipton, E Paulina MD Unavailable Unavailable Skipton, E Paulina MD Unavailable Unavailable Skipton, E Paulina MD Unavailable Unavailable Skipton, E Paulina MD Unavailable Unavailable Skipton, E Paulina MD Unavailable Unavailable Skipton, E Paulina MD Unavailable Unavailable Skipton, E Paulina MD Unavailable Unavailable Skipton, E Paulina MD Unavailable Unavailable Skipton, E Paulina MD Unavailable Unavailable Skipton, E Paulina MD Unavailable Unavailable Skipton, E Paulina MD Unavailable Unavailable Skipton, E Paulina MD Unavailable Unavailable Skipton, E Paulina MD Unavailable Unavailable Skipton, E Paulina MD Unavailable Unavailable Skipton, E Paulina MD Unavailable Unavailable Skipton, E Paulina MD Unavailable Unavailable Skipton, E Paulina MD Unavailable Unavailable Skipton, E Paulina MD Unavailable Unavailable Skipton, E Paulina MD Unavailable Unavailable Skipton, E Paulina MD Unavailable Unavailable Skipton, E Paulina MD Unavailable Unavailable Skipton, E Paulina MD Unavailable Unavailable Skipton, E Paulina MD Unavailable Unavailable Skipton, E Paulina MD Unavailable Unavailable Skipton, E Paulina MD Unavailable Unavailable Glnedy Rich MD Unavailable Unavailable Glendy Rich MD Unavailable Unavailable Glendy Rich MD Unavailable Unavailable Glendy Rich MD Unavailable Unavailable Glendy Rich MD Unavailable Unavailable Glendy Rich MD Unavailable Unavailable Glendy Rich MD Unavailable Unavailable Glendy Rich MD Unavailable Unavailable Glendy Rich MD Unavailable Unavailable Glendy Rich MD Unavailable Unavailable HANIFIN, M ELVIRA PA Unavailable Unavailable HANIFIN, M ELVIRA PA Unavailable Unavailable HANIFIN, M ELVIRA PA Unavailable Unavailable HANIFIN, M ELVIRA PA Unavailable Unavailable HANIFIN, M ELVIRA PA Unavailable Unavailable HANIFIN, M ELVIRA PA Unavailable Unavailable HANIFIN, M ELVIRA PA Unavailable Unavailable HANIFIN, M ELVIRA PA Unavailable Unavailable HANIFIN, M ELVIRA PA Unavailable Unavailable HANIFIN, M ELVIRA PA Unavailable Unavailable HANIFIN, M ELVIRA PA Unavailable Unavailable HANIFIN, M ELVIRA PA Unavailable Unavailable HANIFIN, M ELVIRA PA Unavailable Unavailable HANIFIN, M ELVIRA PA Unavailable Unavailable HANIFIN, M ELVIRA PA Unavailable Unavailable HANIFIN, M ELVIRA PA Unavailable Unavailable HANIFIN, M ELVIRA PA Unavailable Unavailable HANIFIN, M ELVIRA PA Unavailable Unavailable HANIFIN, M ELVIRA PA Unavailable Unavailable HANIFIN, M ELVIRA PA Unavailable Unavailable HANIFIN, M ELVIRA PA Unavailable Unavailable HANIFIN, M ELVIRA PA Unavailable Unavailable HANIFIN, M ELVIRA PA Unavailable Unavailable HANIFIN, M ELVIRA PA Unavailable Unavailable HANIFIN, M ELVIRA PA Unavailable Unavailable HANIFIN, M ELVIRA PA Unavailable Unavailable HANIFIN, M ELVIRA PA Unavailable Unavailable HANIFIN, M ELIVRA PA Unavailable Unavailable HANIFIN, M ELVIRA PA Unavailable Unavailable HANIFIN, M ELVIRA PA Unavailable Unavailable HANIFIN, M ELVIRA PA Unavailable Unavailable HANIFIN, M ELVIRA PA Unavailable Unavailable HANIFIN, M ELVIRA PA Unavailable Unavailable HANIFIN, M ELVIRA PA Unavailable Unavailable HANIFIN, M ELVIRA PA Unavailable Unavailable HANIFIN, M ELVIRA PA Unavailable Unavailable HANIFIN, M ELVIRA PA Unavailable Unavailable HANIFIN, M ELVIRA PA Unavailable Unavailable HANIFIN, M ELVIRA PA Unavailable Unavailable HANIFIN, M ELVIRA PA Unavailable Unavailable HANIFIN, M ELVIRA PA Unavailable Unavailable HANIFIN, M ELVIRA PA Unavailable Unavailable HANIFIN, M ELVIRA PA Unavailable Unavailable HANIFIN, M ELVIRA PA Unavailable Unavailable HANIFIN, M ELVIRA PA Unavailable Unavailable HANIFIN, M ELVIRA PA Unavailable Unavailable HANIFIN, M ELVIRA PA Unavailable Unavailable HANIFIN, M ELVIRA PA Unavailable Unavailable HANIFIN, M ELVIRA PA Unavailable Unavailable HANIFIN, M ELVIRA PA Unavailable Unavailable HANIFIN, M ELVIRA PA Unavailable Unavailable HANIFIN, M ELVIRA PA Unavailable Unavailable HANIFIN, M ELVIRA PA Unavailable Unavailable HANIFIN, M ELVIRA PA Unavailable Unavailable Skipton, E Paulina MD Unavailable Unavailable Skipton, E Paulina MD Unavailable Unavailable Skipton, E Paulina MD Unavailable Unavailable Skipton, E Paulina MD Unavailable Unavailable Skipton, E Paulina MD Unavailable Unavailable Skipton, E Paulina MD Unavailable Unavailable Skipton, E Paulina MD Unavailable Unavailable Skipton, E Paulina MD Unavailable Unavailable Skipton, E Paulina MD Unavailable Unavailable Skipton, E Paulina MD Unavailable Unavailable Skipton, E Paulina MD Unavailable Unavailable Skipton, E Paulina MD Unavailable Unavailable Skipton, E Paulina MD Unavailable Unavailable Skipton, E Paulina MD Unavailable Unavailable Skipton, E Paulina MD Unavailable Unavailable Skipton, E Paulina MD Unavailable Unavailable Skipton, E Paulina MD Unavailable Unavailable Skipton, E Paulina MD Unavailable Unavailable Skipton, E Paulina MD Unavailable Unavailable Skipton, E Paulina MD Unavailable Unavailable Skipton, E Paulina MD Unavailable Unavailable Skipton, E Paulina MD Unavailable Unavailable Skipton, E Paulina MD Unavailable Unavailable Skipton, E Paulina MD Unavailable Unavailable Skipton, E Paulina MD Unavailable Unavailable Skipton, E Paulina MD Unavailable Unavailable Skipton, E Paulina MD Unavailable Unavailable Skipton, E Paulina MD Unavailable Unavailable Skipton, E Paulina MD Unavailable Unavailable Skipton, E Paulina MD Unavailable Unavailable Skipton, E Paulina MD Unavailable Unavailable Skipton, E Paulina MD Unavailable Unavailable Skipton, E Paulina MD Unavailable Unavailable Skipton, E Paulina MD Unavailable Unavailable Skipton, E Paulina MD Unavailable Unavailable Skipton, E Paulina MD Unavailable Unavailable Skipton, E Paulina MD Unavailable Unavailable Skipton, E Paulina MD Unavailable Unavailable Skipton, E Paulina MD Unavailable Unavailable Skipton, E Paulina MD Unavailable Unavailable Skipton, E Paulina MD Unavailable Unavailable Skipton, E Paulina MD Unavailable Unavailable Skipton, E Paulina MD Unavailable Unavailable Skipton, E Paulina MD Unavailable Unavailable Skipton, E Paulina MD Unavailable Unavailable Skipton, E Paulina MD Unavailable Unavailable Skipton, E Paulina MD Unavailable Unavailable Skipton, E Paulina MD Unavailable Unavailable Skipton, E Paulina MD Unavailable Unavailable Skipton, E Paulina MD Unavailable Unavailable Skipton, E Paulina MD Unavailable Unavailable Skipton, E Paulina MD Unavailable Unavailable Skipton, E Paulina MD Unavailable Unavailable Skipton, E Paulina MD Unavailable Unavailable Skipton, E Paulina MD Unavailable Unavailable Skipton, E Paulina MD Unavailable Unavailable Skipton, E Paulina MD Unavailable Unavailable Skipton, E Paulina MD Unavailable Unavailable Skipton, E Paulina MD Unavailable Unavailable Skipton, E Paulina MD Unavailable Unavailable Christian, A Timothy DIAZ Unavailable Unavailable Christian, A Timothy DIAZ Unavailable Unavailable Christian, A Timothy DIAZ Unavailable Unavailable Christian, A Timothy DIAZ Unavailable Unavailable Christian, Jena Aguirre MD Unavailable Unavailable Christian, Jena Aguirre MD Unavailable Unavailable Christian, Jena Aguirre MD Unavailable Unavailable Christian, Jena Aguirre MD Unavailable Unavailable Christian, Jena Aguirre MD Unavailable Unavailable Christian, Jena Aguirre MD Unavailable Unavailable Christian, Jena Aguirre MD Unavailable Unavailable Christian, Jena Aguirre MD Unavailable Unavailable Christian, Jena Aguirre MD Unavailable Unavailable Christian, Jena Aguirre MD Unavailable Unavailable Christian, Jena Aguirre MD Unavailable Unavailable Christian, Jena Aguirre MD Unavailable Unavailable Christian, Jena Aguirre MD Unavailable Unavailable Christian, Jena Aguirre MD Unavailable Unavailable Christian, Jena Aguirre MD Unavailable Unavailable Christian, Jena Aguirre MD Unavailable Unavailable Christian, Jena Aguirre MD Unavailable Unavailable Christian, Jena Aguirre MD Unavailable Unavailable Christian, Jena Aguirre MD Unavailable Unavailable Christian, Jena Aguirre MD Unavailable Unavailable Christian, Jena Aguirre MD Unavailable Unavailable Christain, Jena Aguirre MD Unavailable Unavailable Christian, Jena Aguirre MD Unavailable Unavailable Christian, Jena Aguirre MD Unavailable Unavailable Christian, Jena Aguirre MD Unavailable Unavailable Christian, Jena Aguirre MD Unavailable Unavailable Christian, Jena Aguirre MD Unavailable Unavailable Christian, A Timothy DIAZ Unavailable Unavailable Christian, Jena Aguirre MD Unavailable Unavailable Christian, Jena Aguirre MD Unavailable Unavailable Christian, Jena Aguirre MD Unavailable Unavailable Christian, A Timothy MD Unavailable Unavailable Christian, A Timothy MD Unavailable Unavailable Christian, A Timothy MD Unavailable Unavailable Christian, A Timothy MD Unavailable Unavailable Christian, A Timothy MD Unavailable Unavailable Christian, A Timothy MD Unavailable Unavailable Christian, A Timothy MD Unavailable Unavailable Christian, A Timothy MD Unavailable Unavailable Christian, A Timothy MD Unavailable Unavailable Christian, A Timothy MD Unavailable Unavailable Christian, A Timothy MD Unavailable Unavailable Christian, A Timothy MD Unavailable Unavailable Christian, A Timothy MD Unavailable Unavailable Christian, A Timothy MD Unavailable Unavailable Christian, A Timothy MD Unavailable Unavailable Christian, A Timothy MD Unavailable Unavailable Christian, A Timothy MD Unavailable Unavailable Christian, A Timothy MD Unavailable Unavailable Christian, A Timothy MD Unavailable Unavailable Christian, A Timothy MD Unavailable Unavailable Christian, A Timothy MD Unavailable Unavailable Christian, A Timothy Unavailable Unavailable Christian, A Timothy Unavailable Unavailable Christian, A Timothy Unavailable Unavailable Christian, A Timothy Unavailable Unavailable Christian, A Timothy Unavailable Unavailable Christian, A Timothy Unavailable Unavailable Christian, A Timothy Unavailable Unavailable Christian, A Timothy Unavailable Unavailable Christian, A Timothy Unavailable Unavailable Christian, A Timothy Unavailable Unavailable Christian, A Timothy DIAZ Unavailable Unavailable Christian, A Timothy DIAZ Unavailable Unavailable Christian, A Timothy DIAZ Unavailable Unavailable Christian, A Timothy DIAZ Unavailable Unavailable Christian, A Timothy DIAZ Unavailable Unavailable Christian, A Timothy DIAZ Unavailable Unavailable Christian, A Timothy DIAZ Unavailable Unavailable Christian, A Timothy DIAZ Unavailable Unavailable Christian, A Timothy DIAZ Unavailable Unavailable Christian, A Timothy DIAZ Unavailable Unavailable Christian, A Timothy DIAZ Unavailable Unavailable CHANLIECCO, Arslan SAMANIEGO MD Unavailable Unavailable CHANLIECCO, Arslan SAMANIEGO MD Unavailable Unavailable CHANLIECCO, C JULIET DIAZ Unavailable Unavailable CHANLIECCO, C JULIET DIAZ Unavailable Unavailable CHANLIECCO, C JULIET DIAZ Unavailable Unavailable CHANLIECCO, C JULIET DIAZ Unavailable Unavailable CHANLIECCO, C JULIET DIAZ Unavailable Unavailable CHANLIECCO, C JULIET DIAZ Unavailable Unavailable CHANLIECCO, C JULIET DIAZ Unavailable Unavailable CHANLIECCO, C JULIET DIAZ Unavailable Unavailable CHANLIECCO, C JULIET DIAZ Unavailable Unavailable Re-disclosure Warning The records that you are about to access may contain information from federally-assisted alcohol or drug abuse programs. If such information is present, then the following federally mandated warning applies: This information has been disclosed to you from records protected by federal confidentiality rules (42 CFR part 2). The federal rules prohibit you from making any further disclosure of this information unless further disclosure is expressly permitted by the written consent of the person to whom it pertains or as otherwise permitted by 42 CFR part 2. A general authorization for the release of medical or other information is NOT sufficient for this purpose. The Federal rules restrict any use of the information to criminally investigate or prosecute any alcohol or drug abuse patient.The records that you are about to access may contain highly sensitive health information, the redisclosure of which is protected by Article 27-F of the [facility] Public Health law. If you continue you may have access to information: Regarding HIV / AIDS; Provided by facilities licensed or operated by the [facility] Office of Mental Health; or Provided by the [facility] Office for People With Developmental Disabilities. If such information is present, then the following [facility] mandated warning applies: This information has been disclosed to you from confidential records which are protected by state law. State law prohibits you from making any further disclosure of this information without the specific written consent of the person to whom it pertains, or as otherwise permitted by law. Any unauthorized further disclosure in violation of state law may result in a fine or fpc sentence or both. A general authorization for the release of medical or other information is NOT sufficient authorization for further disc losure. Encounters Encounter Providers Location Date Indications Data Source(s ) [place] [address] [facility] [address] 05/29/2021 12:00:00 AM EST eCW1 ([facility]) [place] [address] [facility] [place] [address] 05/23/2021 12:00:00 AM EST eCW1 ([facility]) [place] [address] [facility] [address] 05/17/2021 12:00:00 AM EST eCW1 ([facility]) Outpatient [address] [facility] [place] [address] 05/11/2021 12:00:00 AM EDT eCW1 ([facility]) [place] [address] [facility] [address] 04/26/2021 12:00:00 AM EDT eCW1 ([facility]) [place] [address] [facility] [address] 03/31/2021 12:00:00 AM EDT [facility] [place] [address] [facility] [address] 03/31/2021 12:00:00 AM EDT eCW1 ([facility]) [place] [address] [facility] [address] 03/24/2021 12:00:00 AM EDT eCW1 ([facility]) [place] [address] [facility] [address] 03/24/2021 12:00:00 AM EDT [facility] [place] [address] [facility] [address] 03/01/2021 12:00:00 AM EDT eCW1 ([facility]) [place] [address] [facility] [address] 02/28/2021 12:00:00 AM EDT eCW1 ([facility]) [place] [address] [facility] [address] 02/21/2021 12:00:00 AM EDT eCW1 [facility]) Emergency Attender: JULIET BRADLEY MDConsultant: Paulina Rich MD 02/18/2021 06:07:00 PM EDT - 02/18/2021 07:47:00 PM EDT [facility] Patient discharged. [place] [address] [facility] [address] 02/15/2021 12:00:00 AM EDT eCW1 [facility]) [place] [address] [facility] [address] 02/15/2021 12:00:00 AM EDT eCW1 ([facility]) (PNSedation) Pain Sedation [address] [place] [address] 02/14/2021 12:00:00 AM EDT eCW1 ([facility]) [place] [address] [facility] [address] 02/03/2021 12:00:00 AM EDT eCW1 ([facility]) [place] [address] [facility] [address] 01/31/2021 12:00:00 AM EDT eCW1 ([facility]) [place] [address] [facility] [address] 01/25/2021 12:00:00 AM EDT eCW1 ([facility]) [place] [address] [facility] [address] 01/25/2021 12:00:00 AM EDT eCW1 ([facility]) [place] [address] [facility] [address] 01/20/2021 12:00:00 AM EDT eCW1 ([facility]) [place] [address] [facility] [address] 01/16/2021 12:00:00 AM EDT eCW1 ([facility]) [place] [address] [facility] [address] 01/02/2021 12:00:00 AM EDT eCW1 ([facility]) [place] [address] [facility] [address] 12/29/2020 12:00:00 AM EDT eCW1 ([facility]) [place] [address] [facility] [address] 12/23/2020 12:00:00 AM EDT eCW1 ([facility]) [place] [address] [facility] [address] 12/09/2020 12:00:00 AM EDT eCW1 ([facility]) [place] [address] [facility] [address] 11/30/2020 12:00:00 AM EDT eCW1 [facility] Outpatient Attender: ELVIRA Besterrer: Paulina Rich MD 11/19/2020 07:01:04 AM EDT [facility] Recurring Patient Referrer: Jeffrey Hatch MD 02:44:39 PM EDT [facility] Recurring Patient Referrer: Jeffrey Hatch MD 02:39:29 PM EDT [facility] Unknown [address] [facility] [address] 11/17/2020 12:00:00 AM EDT eCW1 [facility] [place] [address] [facility] [address] 11/17/2020 12:00:00 AM EDT eCW1 ([facility]) [place] [address] [facility] [address] 11/15/2020 12:00:00 AM EDT eCW1 ([facility]) [place] [address] [facility] [address] 11/08/2020 12:00:00 AM EDT eCW1 [facility] [place] [address] [facility] [place] [address] 11/08/2020 12:00:00 AM EDT eCW1 ([facility]) [place] [address] [facility] [address] 11/03/2020 12:00:00 AM EDT eCW1 ([facility]) [place] [address] [facility] [address] 10/19/2020 12:00:00 AM EDT eCW1 [facility] [place] [address] [facility] [address] 10/19/2020 12:00:00 AM EDT [facility]CW[facility] Outpatient Attender: Timothy Gonzales MDReferrer: Paulina Rich MD 10/07/2020 08:45:29 AM EDT [facility] Recurring Patient Referrer: Jeffrey Hatch MD 08/2020 08:11:10 AM EDT [facility] Recurring Patient Referrer: Jeffrey Hatch MD 08/2020 08:05:39 AM EDT [facility] Recurring Patient Referrer: Jeffrey Hatch MD 08:07:10 AM EDT [facility] Unknown [address] [facility] [address] 09/30/2020 12:00:00 AM EDT eCW1 ([facility]) Unknown [address] [facility] [address] 09/29/2020 12:00:00 AM EDT eCW1 ([facility]) [place] [address] [facility] [address] 09/29/2020 12:00:00 AM EDT eCW1 ([facility]) Outpatient [address] [facility] [address] 09/29/2020 12:00:00 AM EDT eCW1 ([facility]) Recurring Patient Referrer: Jeffrey Hatch MD 07:48:00 AM EDT [facility] Recurring Patient Referrer: Jeffrey Hatch MD 01:58:33 PM EDT [facility] Recurring Patient Referrer: Jeffrey Hatch MD 02:16:10 PM EDT [facility] Recurring Patient Referrer: Jeffrey Hatch MD 03:14:38 PM EDT [facility] Unknown [address] [facility] [address] 09/15/2020 12:00:00 AM EST eCW1 ([facility]) (PNSedation) Pain Sedation [address] [place] [address] 09/15/2020 12:00:00 AM EST eCW1 ([facility]) [place] [address] [facility] [address] 09/09/2020 12:00:00 AM EST eCW1 ([facility]) Unknown [address] [facility] [address] 09/09/2020 12:00:00 AM EST eCW1 ([facility]) Outpatient [address] [facility] [place] [address] 08/31/2020 12:00:00 AM EST eCW1 ([facility]) Outpatient [address] [facility] [place] [address] 08/09/2020 12:00:00 AM EST eCW1 ([facility]) Unknown [address] [facility] [place] [address] 08/02/2020 12:00:00 AM EST eCW1 ([facility]) Unknown [address] [facility] [place] [address] 08/01/2020 12:00:00 AM EST eCW1 ([facility]) (PNSedation) Pain Sedation [address] [place] [address] 07/26/2020 12:00:00 AM EST eCW1 ([facility]) Unknown [address] [facility] [place] [address] 07/25/2020 12:00:00 AM EST eCW1 ([facility]) Outpatient [address] [facility] [place] [address] 07/22/2020 12:00:00 AM EST eCW1 ([facility]) Outpatient [address] [facility] [place] [address] 07/20/2020 12:00:00 AM EST eCW1 ([facility]) [place] [address] [facility] [place] [address] 07/12/2020 12:00:00 AM EST eCW1 ([facility]) Unknown [address] [facility] [place] [address] 07/10/2020 12:00:00 AM EST eCW1 ([facility]) Outpatient [address] [facility] [place] [address] 07/05/2020 12:00:00 AM EST eCW1 ([facility]) Unknown [address] [facility] [place] [address] 06/28/2020 12:00:00 AM EST eCW1 ([facility]) Unknown [address] [facility] [place] [address] 06/27/2020 12:00:00 AM EST eCW1 ([facility]) Outpatient Attender: HAI JONES [facility] Office 06/07 07:15:00 AM EST MEDENT ([facility] Outpatient [address] [facility] [place] [address] 06/16/2020 12:00:00 AM EST eCW1 ([facility]) (PNSedation) Pain Sedation [address] [place] [address] 06/13/2020 12:00:00 AM EST eCW1 ([facility]) Unknown [address] [facility] [place] [address] 06/10/2020 12:00:00 AM EST eCW1 ([facility]) Outpatient [address] [facility] [place] [address] 05/30/2020 12:00:00 AM EST eCW1 ([facility]) [employer] [address] [facility] [place] [address] 05/26/2020 12:00:00 AM EST eCW1 [facility] Outpatient [address] [facility] [address] 05/17/2020 12:00:00 AM EST eCW1 ([facility]) [place] [address] [facility] [place] [address] 05/16/2020 12:00:00 AM EST eCW1 ([facility]) (PNSedation) Pain Sedation [address] [place] [address] 04/28/2020 12:00:00 AM EDT eCW1 ([facility]) Unknown [address] [facility] [place] [address] 04/27/2020 12:00:00 AM EDT eCW1 ([facility]) Unknown [address] [facility] [place] [address] 04/26/2020 12:00:00 AM EDT eCW1 ([facility]) Outpatient [address] [facility] [address] 04/25/2020 12:00:00 AM EDT eCW1 ([facility]) Outpatient [address] [facility] [address] 04/18/2020 12:00:00 AM EDT eCW1 ([facility]) Outpatient Attender: HAI JONES [facility] Office 01/2020 08:15:00 AM EDT MEDENT ([facility] Outpatient [address] [facility] [address] 04/13/2020 12:00:00 AM EDT eCW1 ([facility]) Unknown [address] [facility] [address] 04/13/2020 12:00:00 AM EDT eCW1 ([facility]) Immunizations Vaccine Date Status Description Data Source(s) COVID-19 VACCINE Moderna 10/27/2020 12:00:00 AM EDT completed [employer] Vaccine Series Complete: YESThis Data wa s Submitted to [facility] Via [employer]. COVID-19 dose #1 given elsewhere Unspecified 09/29/2020 10:2 7:00 AM EDT completed eCW1 ([facility]) COVID-19 dose #1 given elsewhere Unspecified 09/29/2020 10:2 7:00 AM EDT completed eCW1 ([facility]) COVID-19 dose #1 given elsewhere Unspecified 09/29/2020 10:2 7:00 AM EDT completed eCW1 ([facility]) COVID-19 dose #1 given elsewhere Unspecified 09/29/2020 10:2 7:00 AM EDT completed eCW1 ([facility]) COVID-19 dose #1 given elsewhere Unspecified 09/29/2020 10:2 7:00 AM EDT completed eCW1 ([facility]) COVID-19 dose #1 given elsewhere Unspecified 09/29/2020 10:2 7:00 AM EDT completed eCW1 ([facility]) COVID-19 dose #1 given elsewhere Unspecified 09/29/2020 10:2 7:00 AM EDT completed eCW1 ([facility]) COVID-19 dose #1 given elsewhere Unspecified 09/29/2020 10:2 7:00 AM EDT completed eCW1 ([facility]) COVID-19 dose #1 given elsewhere Unspecified 09/29/2020 10:2 7:00 AM EDT completed eCW1 ([facility]) COVID-19 dose #1 given elsewhere Unspecified 09/29/2020 10:2 7:00 AM EDT completed eCW1 ([facility]) COVID-19 dose #1 given elsewhere Unspecified 09/29/2020 10:2 7:00 AM EDT completed eCW1 ([facility]) COVID-19 dose #1 given elsewhere Unspecified 09/29/2020 10:2 7:00 AM EDT completed eCW1 ([facility]) COVID-19 dose #1 given elsewhere Unspecified 09/29/2020 10:2 7:00 AM EDT completed eCW1 ([facility]) COVID-19 dose #1 given elsewhere Unspecified 09/29/2020 10:2 7:00 AM EDT completed eCW1 ([facility]) COVID-19 dose #1 given elsewhere Unspecified 09/29/2020 10:2 7:00 AM EDT completed eCW1 ([facility]) COVID-19 dose #1 given elsewhere Unspecified 09/29/2020 10:2 7:00 AM EDT completed eCW1 ([facility]) COVID-19 dose #1 given elsewhere Unspecified 09/29/2020 10:2 7:00 AM EDT completed eCW1 ([facility]) COVID-19 dose #1 given elsewhere Unspecified 09/29/2020 10:2 7:00 AM EDT completed eCW1 ([facility]) COVID-19 dose #1 given elsewhere Unspecified 09/29/2020 10:2 7:00 AM EDT completed eCW1 ([facility]) COVID-19 dose #1 given elsewhere Unspecified 09/29/2020 10:2 7:00 AM EDT completed eCW1 ([facility]) COVID-19 dose #1 given elsewhere Unspecified 09/29/2020 10:2 7:00 AM EDT completed eCW1 ([facility]) COVID-19 dose #1 given elsewhere Unspecified 09/29/2020 10:2 7:00 AM EDT completed eCW1 ([facility]) COVID-19 dose #1 given elsewhere Unspecified 09/29/2020 10:2 7:00 AM EDT completed eCW1 ([facility]) COVID-19 dose #1 given elsewhere Unspecified 09/29/2020 10:2 7:00 AM EDT completed eCW1 ([facility]) COVID-19 dose #1 given elsewhere Unspecified 09/29/2020 10:2 7:00 AM EDT completed eCW1 ([facility]) COVID-19 dose #1 given elsewhere Unspecified 09/29/2020 10:2 7:00 AM EDT completed eCW1 ([facility]) COVID-19 dose #1 given elsewhere Unspecified 09/29/2020 10:2 7:00 AM EDT completed eCW1 ([facility]) COVID-19 dose #1 given elsewhere Unspecified 09/29/2020 10:2 7:00 AM EDT completed eCW1 ([facility]) COVID-19 dose #1 given elsewhere Unspecified 09/29/2020 10:2 7:00 AM EDT completed eCW1 ([facility]) COVID-19 dose #1 given elsewhere Unspecified 09/29/2020 10:2 7:00 AM EDT completed eCW1 ([facility]) COVID-19 dose #1 given elsewhere Unspecified 09/29/2020 10:2 7:00 AM EDT completed eCW1 ([facility]) COVID-19 dose #1 given elsewhere Unspecified 09/29/2020 10:2 7:00 AM EDT completed eCW1 ([facility]) COVID-19 dose #1 given elsewhere Unspecified 09/29/2020 10:2 7:00 AM EDT completed eCW1 ([facility]) COVID-19 dose #1 given elsewhere Unspecified 09/29/2020 10:2 7:00 AM EDT completed eCW1 ([facility]) COVID-19 VACCINE Moderna 09/29/2020 12:00:00 AM EDT completed [employer] Vaccine Series Complete: NOThis Data was Submitted to [facility] Via [employer]. Medications Medication Brand Name Start Date Product Form Dose Route Admi nistrative Instructions Pharmacy Instructions Status Indications Reaction Description Data Source(s) Acetaminophen 325 MG / Hydrocodone Sae trate 10 MG Oral Tablet HYDROcodone- Acetaminophen 10-325 MG HYDROcodone-Acetaminophen 10-325 MG 05/29/2021 12:00:0 0 AM EST 1.0 {tablet_as_needed} active HYDROcodone-Acetaminophen 10- 325 MG eCW1 ([facility]) Fluoxetine 10 MG Oral Capsule FLUoxetine HCl 10 MG FLUoxetin e HCl 10 MG 05/23/2021 12:00:00 AM EST 1.0 {capsule} active FLUoxetine HCl 10 MG eCW1 ([facility]) Fluoxetine 10 MG Oral Capsule FLUoxetine HCl 10 MG FLUoxetin e HCl 10 MG 05/23/2021 12:00:00 AM EST 1.0 {capsule} active FLUoxetine HCl 10 MG eCW1 ([facility]) Acetaminophen 325 MG / Hydrocodone Sae trate 10 MG Oral Tablet HYDROcodone- Acetaminophen 10-325 MG HYDROcodone-Acetaminophen 10-325 MG 04/26/2021 12:00:0 0 AM EDT 1.0 {tablet_as_needed} active HYDROcodone-Acetaminophen 10- 325 MG eCW1 ([facility]) Acetaminophen 325 MG / Hydrocodone Sae trate 10 MG Oral Tablet HYDROcodone- Acetaminophen 10-325 MG HYDROcodone-Acetaminophen 10-325 MG 04/26/2021 12:00:0 0 AM EDT 1.0 {tablet_as_needed} active eCW1 ([facility]) Acetaminophen 325 MG / Hydrocodone Sae trate 10 MG Oral Tablet HYDROcodone- Acetaminophen 10-325 MG HYDROcodone-Acetaminophen 10-325 MG 04/26/2021 12:00:0 0 AM EDT 1.0 {tablet_as_needed} active HYDROcodone-Acetaminophen 10- 325 MG eCW1 ([facility]) Acetaminophen 325 MG / Hydrocodone Sae trate 10 MG Oral Tablet HYDROcodone- Acetaminophen 10-325 MG HYDROcodone-Acetaminophen 10-325 MG 04/26/2021 12:00:0 0 AM EDT 1.0 {tablet_as_needed} active HYDROcodone-Acetaminophen 10- 325 MG eCW1 ([facility]) Acetaminophen 325 MG / Hydrocodone Sae trate 10 MG Oral Tablet HYDROcodone- Acetaminophen 10-325 MG HYDROcodone-Acetaminophen 10-325 MG 03/24/2021 12:00:0 0 AM EDT 1.0 {tablet_as_needed} active HYDROcodone-Acetaminophen 10- 325 MG eCW1 ([facility]) Acetaminophen 325 MG / Hydrocodone Sae trate 10 MG Oral Tablet HYDROcodone- Acetaminophen 10-325 MG HYDROcodone-Acetaminophen 10-325 MG 03/24/2021 12:00:0 0 AM EDT 1.0 {tablet_as_needed} active HYDROcodone-Acetaminophen 10- 325 MG eCW1 ([facility]) Acetaminophen 325 MG / Hydrocodone Sae trate 10 MG Oral Tablet HYDROcodone- Acetaminophen 10-325 MG HYDROcodone-Acetaminophen 10-325 MG 03/24/2021 12:00:0 0 AM EDT 1.0 {tablet_as_needed} active HYDROcodone-Acetaminophen 10- 325 MG eCW1 ([facility]) Acetaminophen 325 MG / Hydrocodone Sae trate 10 MG Oral Tablet HYDROcodone- Acetaminophen 10-325 MG HYDROcodone-Acetaminophen 10-325 MG 03/24/2021 12:00:0 0 AM EDT 1.0 {tablet_as_needed} active HYDROcodone-Acetaminophen 10- 325 MG eCW1 ([facility]) Acetaminophen 325 MG / Hydrocodone Sae trate 10 MG Oral Tablet HYDROcodone- Acetaminophen 10-325 MG HYDROcodone-Acetaminophen 10-325 MG 02/28/2021 12:00:0 0 AM EDT 1.0 {tablet_as_needed} active HYDROcodone-Acetaminophen 10- 325 MG eCW1 ([facility]) Acetaminophen 325 MG / Hydrocodone Sae trate 10 MG Oral Tablet HYDROcodone- Acetaminophen 10-325 MG HYDROcodone-Acetaminophen 10-325 MG 02/28/2021 12:00:0 0 AM EDT 1.0 {tablet_as_needed} active HYDROcodone-Acetaminophen 10- 325 MG eCW1 ([facility]) Phentermine Hydrochloride 37.5 MG Oral Capsule Phenter mine HCl 37.5 MG Phentermine HCl 37.5 MG 02/15/2021 12:00:00 AM EDT 1.0 {capsule} active Phentermine HCl 37.5 MG eCW1 ([facility]) Phentermine Hydrochloride 37.5 MG Oral Capsule Phenter mine HCl 37.5 MG Phentermine HCl 37.5 MG 02/15/2021 12:00:00 AM EDT 1.0 {capsule} active Phentermine HCl 37.5 MG eCW1 ([facility]) Phentermine Hydrochloride 37.5 MG Oral Capsule Phenter mine HCl 37.5 MG Phentermine HCl 37.5 MG 02/15/2021 12:00:00 AM EDT 1.0 {capsule} active Phentermine HCl 37.5 MG eCW1 ([facility]) Phentermine Hydrochloride 37.5 MG Oral Capsule Phenter mine HCl 37.5 MG Phentermine HCl 37.5 MG 02/15/2021 12:00:00 AM EDT 1.0 {capsule} active Phentermine HCl 37.5 MG eCW1 ([facility]) Phentermine Hydrochloride 37.5 MG Oral Capsule Phenter mine HCl 37.5 MG Phentermine HCl 37.5 MG 02/15/2021 12:00:00 AM EDT 1.0 {capsule} active Phentermine HCl 37.5 MG eCW1 ([facility]) Phentermine Hydrochloride 37.5 MG Oral Capsule Phenter mine HCl 37.5 MG Phentermine HCl 37.5 MG 02/15/2021 12:00:00 AM EDT 1.0 {capsule} active Phentermine HCl 37.5 MG eCW1 ([facility]) Phentermine Hydrochloride 37.5 MG Oral Capsule Phenter mine HCl 37.5 MG Phentermine HCl 37.5 MG 02/15/2021 12:00:00 AM EDT 1.0 {capsule} active Phentermine HCl 37.5 MG eCW1 ([facility]) Phentermine Hydrochloride 37.5 MG Oral Capsule Phenter mine HCl 37.5 MG Phentermine HCl 37.5 MG 02/15/2021 12:00:00 AM EDT 1.0 {capsule} active Phentermine HCl 37.5 MG eCW1 ([facility]) Phentermine Hydrochloride 37.5 MG Oral Capsule Phenter mine HCl 37.5 MG Phentermine HCl 37.5 MG 02/15/2021 12:00:00 AM EDT 1.0 {capsule} active eCW1 ([facility]) Phentermine Hydrochloride 37.5 MG Oral Capsule Phenter mine HCl 37.5 MG Phentermine HCl 37.5 MG 02/15/2021 12:00:00 AM EDT 1.0 {capsule} active Phentermine HCl 37.5 MG eCW1 ([facility]) Phentermine Hydrochloride 37.5 MG Oral Capsule Phenter mine HCl 37.5 MG Phentermine HCl 37.5 MG 02/15/2021 12:00:00 AM EDT 1.0 {capsule} active Phentermine HCl 37.5 MG eCW1 ([facility]) Phentermine Hydrochloride 37.5 MG Oral Capsule Phenter mine HCl 37.5 MG Phentermine HCl 37.5 MG 02/15/2021 12:00:00 AM EDT 1.0 {capsule} active Phentermine HCl 37.5 MG eCW1 ([facility]) Phentermine Hydrochloride 37.5 MG Oral Capsule Phenter mine HCl 37.5 MG Phentermine HCl 37.5 MG 02/15/2021 12:00:00 AM EDT 1.0 {capsule} active Phentermine HCl 37.5 MG eCW1 ([facility]) Carisoprodol 350 MG Oral Tablet Carisoprodol 350 MG 02/14/2021 1 2:00:00 AM EDT 1.0 {tablet_as_needed} active C arisoprodol 350 MG eCW1 ([facility]) Carisoprodol 350 MG Oral Tablet Carisoprodol 350 MG 02/14/2021 1 2:00:00 AM EDT 1.0 {tablet_as_needed} active C arisoprodol 350 MG eCW1 ([facility]) Carisoprodol 350 MG Oral Tablet Carisoprodol 350 MG 02/14/2021 1 2:00:00 AM EDT 1.0 {tablet_as_needed} active C arisoprodol 350 MG eCW1 ([facility]) Carisoprodol 350 MG Oral Tablet Carisoprodol 350 MG 02/14/2021 1 2:00:00 AM EDT 1.0 {tablet_as_needed} active C arisoprodol 350 MG eCW1 ([facility]) Carisoprodol 350 MG Oral Tablet Carisoprodol 350 MG 02/14/2021 1 2:00:00 AM EDT 1.0 {tablet_as_needed} suspended Carisoprodol 350 MG eCW1 ([facility]) Carisoprodol 350 MG Oral Tablet Carisoprodol 350 MG 02/14/2021 1 2:00:00 AM EDT 1.0 {tablet_as_needed} suspended Carisoprodol 350 MG eCW1 ([facility]) Carisoprodol 350 MG Oral Tablet Carisoprodol 350 MG 02/14/2021 1 2:00:00 AM EDT 1.0 {tablet_as_needed} active C arisoprodol 350 MG eCW1 ([facility]) Carisoprodol 350 MG Oral Tablet Carisoprodol 350 MG 02/14/2021 1 2:00:00 AM EDT 1.0 {tablet_as_needed} suspended Carisoprodol 350 MG eCW1 ([facility]) Carisoprodol 350 MG Oral Tablet Carisoprodol 350 MG 02/14/2021 1 2:00:00 AM EDT 1.0 {tablet_as_needed} suspended Carisoprodol 350 MG eCW1 ([facility]) Carisoprodol 350 MG Oral Tablet Carisoprodol 350 MG 02/14/2021 1 2:00:00 AM EDT 1.0 {tablet_as_needed} active C arisoprodol 350 MG eCW1 ([facility]) Carisoprodol 350 MG Oral Tablet Carisoprodol 350 MG 02/14/2021 1 2:00:00 AM EDT 1.0 {tablet_as_needed} suspended Carisoprodol 350 MG eCW1 ([facility]) Carisoprodol 350 MG Oral Tablet Carisoprodol 350 MG 02/14/2021 1 2:00:00 AM EDT 1.0 {tablet_as_needed} suspended Carisoprodol 350 MG eCW1 ([facility]) Carisoprodol 350 MG Oral Tablet Carisoprodol 350 MG 02/14/2021 1 2:00:00 AM EDT 1.0 {tablet_as_needed} suspended eCW1 ([facility]) Triamcinolone Acetonide 0.001 MG/MG Topi sheri Ointment Triamcinolone Acetonide 0.1 % Triamcinolone Acetonide 0.1 % 02/03/2021 12:00:00 AM EDT 1.0 {application} suspended Triamcinolone Aceton carrie 0.1 % eCW1 ([facility]) Triamcinolone Acetonide 0.001 MG/MG Topi sheri Ointment Triamcinolone Acetonide 0.1 % Triamcinolone Acetonide 0.1 % 02/03/2021 12:00:00 AM EDT 1.0 {application} active Triamcinolone Aceton carrie 0.1 % eCW1 ([facility]) Triamcinolone Acetonide 0.001 MG/MG Topi sheri Ointment Triamcinolone Acetonide 0.1 % Triamcinolone Acetonide 0.1 % 02/03/2021 12:00:00 AM EDT 1.0 {application} suspended Triamcinolone Aceton carrie 0.1 % eCW1 ([facility]) Triamcinolone Acetonide 0.001 MG/MG Topi sheri Ointment Triamcinolone Acetonide 0.1 % Triamcinolone Acetonide 0.1 % 02/03/2021 12:00:00 AM EDT 1.0 {application} active Triamcinolone Aceton carrie 0.1 % eCW1 ([facility]) Triamcinolone Acetonide 0.001 MG/MG Topi sheri Ointment Triamcinolone Acetonide 0.1 % Triamcinolone Acetonide 0.1 % 02/03/2021 12:00:00 AM EDT 1.0 {application} active Triamcinolone Aceton carrie 0.1 % eCW1 ([facility]) Triamcinolone Acetonide 0.001 MG/MG Topi sheri Ointment Triamcinolone Acetonide 0.1 % Triamcinolone Acetonide 0.1 % 02/03/2021 12:00:00 AM EDT 1.0 {application} suspended Triamcinolone Aceton carrie 0.1 % eCW1 ([facility]) Triamcinolone Acetonide 0.001 MG/MG Topi sheri Ointment Triamcinolone Acetonide 0.1 % Triamcinolone Acetonide 0.1 % 02/03/2021 12:00:00 AM EDT 1.0 {application} active Triamcinolone Aceton carrie 0.1 % eCW1 ([facility]) Triamcinolone Acetonide 0.001 MG/MG Topi sheri Ointment Triamcinolone Acetonide 0.1 % Triamcinolone Acetonide 0.1 % 02/03/2021 12:00:00 AM EDT 1.0 {application} suspended Triamcinolone Aceton carrie 0.1 % eCW1 ([facility]) Triamcinolone Acetonide 0.001 MG/MG Topi sheri Ointment Triamcinolone Acetonide 0.1 % Triamcinolone Acetonide 0.1 % 02/03/2021 12:00:00 AM EDT 1.0 {application} suspended Triamcinolone Aceton carrie 0.1 % eCW1 ([facility]) Triamcinolone Acetonide 0.001 MG/MG Topi sheri Ointment Triamcinolone Acetonide 0.1 % Triamcinolone Acetonide 0.1 % 02/03/2021 12:00:00 AM EDT 1.0 {application} active Triamcinolone Aceton carrie 0.1 % eCW1 ([facility]) Triamcinolone Acetonide 0.001 MG/MG Topi sheri Ointment Triamcinolone Acetonide 0.1 % Triamcinolone Acetonide 0.1 % 02/03/2021 12:00:00 AM EDT 1.0 {application} suspended eCW1 ([facility]) Triamcinolone Acetonide 0.001 MG/MG Topi sheri Ointment Triamcinolone Acetonide 0.1 % Triamcinolone Acetonide 0.1 % 02/03/2021 12:00:00 AM EDT 1.0 {application} active Triamcinolone Aceton carrie 0.1 % eCW1 ([facility]) Triamcinolone Acetonide 0.001 MG/MG Topi sheri Ointment Triamcinolone Acetonide 0.1 % Triamcinolone Acetonide 0.1 % 02/03/2021 12:00:00 AM EDT 1.0 {application} active Triamcinolone Aceton carrie 0.1 % eCW1 ([facility]) Triamcinolone Acetonide 0.001 MG/MG Topi sheri Ointment Triamcinolone Acetonide 0.1 % Triamcinolone Acetonide 0.1 % 02/03/2021 12:00:00 AM EDT 1.0 {application} suspended Triamcinolone Aceton carrie 0.1 % eCW1 ([facility]) Acetaminophen 325 MG / Hydrocodone Sae trate 10 MG Oral Tablet HYDROcodone- Acetaminophen 10-325 MG HYDROcodone-Acetaminophen 10-325 MG 01/25/2021 12:00:0 0 AM EDT 1.0 {tablet_as_needed} active HYDROcodone-Acetaminophen 10- 325 MG eCW1 ([facility]) Acetaminophen 325 MG / Hydrocodone Sae trate 10 MG Oral Tablet HYDROcodone- Acetaminophen 10-325 MG HYDROcodone-Acetaminophen 10-325 MG 01/25/2021 12:00:0 0 AM EDT 1.0 {tablet_as_needed} active HYDROcodone-Acetaminophen 10- 325 MG eCW1 ([facility]) Acetaminophen 325 MG / Hydrocodone Sae trate 10 MG Oral Tablet HYDROcodone- Acetaminophen 10-325 MG HYDROcodone-Acetaminophen 10-325 MG 01/25/2021 12:00:0 0 AM EDT 1.0 {tablet_as_needed} active eCW1 ([facility]) Acetaminophen 325 MG / Hydrocodone Sae trate 10 MG Oral Tablet HYDROcodone- Acetaminophen 10-325 MG HYDROcodone-Acetaminophen 10-325 MG 01/25/2021 12:00:0 0 AM EDT 1.0 {tablet_as_needed} active HYDROcodone-Acetaminophen 10- 325 MG eCW1 ([facility]) Acetaminophen 325 MG / Hydrocodone Sae trate 10 MG Oral Tablet HYDROcodone- Acetaminophen 10-325 MG HYDROcodone-Acetaminophen 10-325 MG 01/25/2021 12:00:0 0 AM EDT 1.0 {tablet_as_needed} active HYDROcodone-Acetaminophen 10- 325 MG eCW1 ([facility]) Acetaminophen 325 MG / Hydrocodone Sae trate 10 MG Oral Tablet HYDROcodone- Acetaminophen 10-325 MG HYDROcodone-Acetaminophen 10-325 MG 01/25/2021 12:00:0 0 AM EDT 1.0 {tablet_as_needed} active HYDROcodone-Acetaminophen 10- 325 MG eCW1 ([facility]) Acetaminophen 325 MG / Hydrocodone Sae trate 10 MG Oral Tablet HYDROcodone- Acetaminophen 10-325 MG HYDROcodone-Acetaminophen 10-325 MG 01/25/2021 12:00:0 0 AM EDT 1.0 {tablet_as_needed} active HYDROcodone-Acetaminophen 10- 325 MG eCW1 ([facility]) Acetaminophen 325 MG / Hydrocodone Sae trate 10 MG Oral Tablet HYDROcodone- Acetaminophen 10-325 MG HYDROcodone-Acetaminophen 10-325 MG 01/25/2021 12:00:0 0 AM EDT 1.0 {tablet_as_needed} active HYDROcodone-Acetaminophen 10- 325 MG eCW1 ([facility]) Acetaminophen 325 MG / Hydrocodone Sae trate 10 MG Oral Tablet HYDROcodone- Acetaminophen 10-325 MG HYDROcodone-Acetaminophen 10-325 MG 01/02/2021 12:00:0 0 AM EDT 1.0 {tablet_as_needed} active HYDROcodone-Acetaminophen 10- 325 MG eCW1 ([facility]) Acetaminophen 325 MG / Hydrocodone Sae trate 10 MG Oral Tablet HYDROcodone- Acetaminophen 10-325 MG HYDROcodone-Acetaminophen 10-325 MG 01/02/2021 12:00:0 0 AM EDT 1.0 {tablet_as_needed} active HYDROcodone-Acetaminophen 10- 325 MG eCW1 ([facility]) Acetaminophen 325 MG / Hydrocodone Sae trate 10 MG Oral Tablet HYDROcodone- Acetaminophen 10-325 MG HYDROcodone-Acetaminophen 10-325 MG 01/02/2021 12:00:0 0 AM EDT 1.0 {tablet_as_needed} active HYDROcodone-Acetaminophen 10- 325 MG eCW1 ([facility]) Acetaminophen 325 MG / Hydrocodone Sae trate 10 MG Oral Tablet HYDROcodone- Acetaminophen 10-325 MG HYDROcodone-Acetaminophen 10-325 MG 11/30/2020 12:00:0 0 AM EDT 1.0 {tablet_as_needed} suspended HYDROcodone-Acetaminophen 10-325 MG eCW1 ([facility]) Acetaminophen 325 MG / Hydrocodone Sae trate 10 MG Oral Tablet Hydrocodone- Acetaminophen 10-325 MG Hydrocodone-Acetaminophen 10-325 MG 11/30/2020 12:00:0 0 AM EDT 1.0 {tablet_as_needed} active eCW1 ([facility]) Phentermine Hydrochloride 37.5 MG Oral Capsule Phenter mine HCl 37.5 MG Phentermine HCl 37.5 MG 11/17/2020 12:00:00 AM EDT 1.0 {capsule} active Phentermine HCl 37.5 MG eCW1 ([facility]) Phentermine Hydrochloride 37.5 MG Oral Capsule Phenter mine HCl 37.5 MG Phentermine HCl 37.5 MG 11/17/2020 12:00:00 AM EDT 1.0 {capsule} active Phentermine HCl 37.5 MG eCW1 ([facility]) Phentermine Hydrochloride 37.5 MG Oral Capsule Phenter mine HCl 37.5 MG Phentermine HCl 37.5 MG 11/17/2020 12:00:00 AM EDT 1.0 {capsule} active eCW1 ([facility]) Phentermine Hydrochloride 37.5 MG Oral Capsule Phenter mine HCl 37.5 MG Phentermine HCl 37.5 MG 11/17/2020 12:00:00 AM EDT 1.0 {capsule} active Phentermine HCl 37.5 MG eCW1 ([facility]) Phentermine Hydrochloride 37.5 MG Oral Capsule Phenter mine HCl 37.5 MG Phentermine HCl 37.5 MG 11/17/2020 12:00:00 AM EDT 1.0 {capsule} active Phentermine HCl 37.5 MG eCW1 ([facility]) Phentermine Hydrochloride 37.5 MG Oral Capsule Phenter mine HCl 37.5 MG Phentermine HCl 37.5 MG 11/17/2020 12:00:00 AM EDT 1.0 {capsule} active Phentermine HCl 37.5 MG eCW1 ([facility]) Phentermine Hydrochloride 37.5 MG Oral Capsule Phenter mine HCl 37.5 MG Phentermine HCl 37.5 MG 11/17/2020 12:00:00 AM EDT 1.0 {capsule} active Phentermine HCl 37.5 MG eCW1 ([facility]) Phentermine Hydrochloride 37.5 MG Oral Capsule Phenter mine HCl 37.5 MG Phentermine HCl 37.5 MG 11/17/2020 12:00:00 AM EDT 1.0 {capsule} active eCW1 ([facility]) Phentermine Hydrochloride 37.5 MG Oral Capsule Phenter mine HCl 37.5 MG Phentermine HCl 37.5 MG 11/17/2020 12:00:00 AM EDT 1.0 {capsule} active Phentermine HCl 37.5 MG eCW1 ([facility]) Phentermine Hydrochloride 37.5 MG Oral Capsule Phenter mine HCl 37.5 MG Phentermine HCl 37.5 MG 11/17/2020 12:00:00 AM EDT 1.0 {capsule} active Phentermine HCl 37.5 MG eCW1 ([facility]) Phentermine Hydrochloride 37.5 MG Oral Capsule Phenter mine HCl 37.5 MG Phentermine HCl 37.5 MG 11/17/2020 12:00:00 AM EDT 1.0 {capsule} active eCW1 ([facility]) Phentermine Hydrochloride 37.5 MG Oral Capsule Phenter mine HCl 37.5 MG Phentermine HCl 37.5 MG 11/17/2020 12:00:00 AM EDT 1.0 {capsule} active Phentermine HCl 37.5 MG eCW1 ([facility]) Phentermine Hydrochloride 37.5 MG Oral Capsule Phenter mine HCl 37.5 MG Phentermine HCl 37.5 MG 11/17/2020 12:00:00 AM EDT 1.0 {capsule} active Phentermine HCl 37.5 MG eCW1 ([facility]) Phentermine Hydrochloride 37.5 MG Oral Capsule Phenter mine HCl 37.5 MG Phentermine HCl 37.5 MG 11/17/2020 12:00:00 AM EDT 1.0 {capsule} active Phentermine HCl 37.5 MG eCW1 ([facility]) duloxetine 30 MG Delayed Release Oral Capsule [Cymbalt a] Cymbalta 30 MG Cymbalta 30 MG 11/08/2020 12:00:00 AM EDT 1.0 {capsule} suspende d eCW1 ([facility]) duloxetine 30 MG Delayed Release Oral Capsule [Cymbalt a] Cymbalta 30 MG Cymbalta 30 MG 11/08/2020 12:00:00 AM EDT 1.0 {capsule} susp ended Cymbalta 30 MG eCW1 ([facility]) duloxetine 30 MG Delayed Release Oral Capsule [Cymbalt a] Cymbalta 30 MG Cymbalta 30 MG 11/08/2020 12:00:00 AM EDT 1.0 {capsule} acti ve Cymbalta 30 MG eCW1 ([facility]) duloxetine 30 MG Delayed Release Oral Capsule [Cymbalt a] Cymbalta 30 MG Cymbalta 30 MG 11/08/2020 12:00:00 AM EDT 1.0 {capsule} susp ended Cymbalta 30 MG eCW1 ([facility]) duloxetine 30 MG Delayed Release Oral Capsule [Cymbalt a] Cymbalta 30 MG Cymbalta 30 MG 11/08/2020 12:00:00 AM EDT 1.0 {capsule} acti ve Cymbalta 30 MG eCW1 ([facility]) duloxetine 30 MG Delayed Release Oral Capsule [Cymbalt a] Cymbalta 30 MG Cymbalta 30 MG 11/08/2020 12:00:00 AM EDT 1.0 {capsule} suspende d eCW1 ([facility]) Acetaminophen 325 MG / Hydrocodone Sae trate 7.5 MG Oral Tablet Hydrocodone- Acetaminophen 7.5-325 MG Hydrocodone-Acetaminophen 7.5-325 MG 11/04/2020 12:00:00 AM EDT 1.0 {tablet_as_needed} active eCW1 ([facility]) Acetaminophen 325 MG / Hydrocodone Sae trate 10 MG Oral Tablet HYDROcodone- Acetaminophen 10-325 MG HYDROcodone-Acetaminophen 10-325 MG 11/04/2020 12:00:0 0 AM EDT 1.0 {tablet_as_needed} active HYDROcodone-Acetaminophen 10- 325 MG eCW1 ([facility]) Acetaminophen 325 MG / Hydrocodone Sae trate 7.5 MG Oral Tablet Hydrocodone- Acetaminophen 7.5-325 MG Hydrocodone-Acetaminophen 7.5-325 MG 11/04/2020 12:00:00 AM EDT 1.0 {tablet_as_needed} active Hydrocodone- Acetaminophen 7.5-325 MG eCW1 ([facility]) Acetaminophen 325 MG / Hydrocodone Sae trate 10 MG Oral Tablet HYDROcodone- Acetaminophen 10-325 MG HYDROcodone-Acetaminophen 10-325 MG 11/04/2020 12:00:0 0 AM EDT 1.0 {tablet_as_needed} active HYDROcodone-Acetaminophen 10- 325 MG eCW1 ([facility]) Acetaminophen 325 MG / Hydrocodone Sae trate 10 MG Oral Tablet HYDROcodone- Acetaminophen 10-325 MG HYDROcodone-Acetaminophen 10-325 MG 11/04/2020 12:00:0 0 AM EDT 1.0 {tablet_as_needed} active HYDROcodone-Acetaminophen 10- 325 MG eCW1 ([facility]) Acetaminophen 325 MG / Hydrocodone Sae trate 7.5 MG Oral Tablet Hydrocodone- Acetaminophen 7.5-325 MG Hydrocodone-Acetaminophen 7.5-325 MG 11/04/2020 12:00:00 AM EDT 1.0 {tablet_as_needed} active Hydrocodone- Acetaminophen 7.5-325 MG eCW1 ([facility]) Acetaminophen 325 MG / Hydrocodone Sae trate 7.5 MG Oral Tablet Hydrocodone- Acetaminophen 7.5-325 MG Hydrocodone-Acetaminophen 7.5-325 MG 11/04/2020 12:00:00 AM EDT 1.0 {tablet_as_needed} active eCW1 ([facility]) Acetaminophen 325 MG / Hydrocodone Sae trate 7.5 MG Oral Tablet Hydrocodone- Acetaminophen 7.5-325 MG Hydrocodone-Acetaminophen 7.5-325 MG 11/04/2020 12:00:00 AM EDT 1.0 {tablet_as_needed} active Hydrocodone- Acetaminophen 7.5-325 MG eCW1 ([facility]) Acetaminophen 325 MG / Hydrocodone Sae trate 10 MG Oral Tablet HYDROcodone- Acetaminophen 10-325 MG HYDROcodone-Acetaminophen 10-325 MG 11/04/2020 12:00:0 0 AM EDT 1.0 {tablet_as_needed} active HYDROcodone-Acetaminophen 10- 325 MG eCW1 ([facility]) Acetaminophen 325 MG / Hydrocodone Sae trate 7.5 MG Oral Tablet Hydrocodone- Acetaminophen 7.5-325 MG Hydrocodone-Acetaminophen 7.5-325 MG 11/04/2020 12:00:00 AM EDT 1.0 {tablet_as_needed} active Hydrocodone- Acetaminophen 7.5-325 MG eCW1 ([facility]) Hydrochlorothiazide 12.5 MG Oral Tablet hydroCHLOROthi azide 12.5 MG hydroCHLOROthiazide 12.5 MG 10/19/2020 12:00:00 AM EDT 1.0 {tablet_in_the_morning} active hydroCHL OROthiazide 12.5 MG eCW1 ([facility]) Hydrochlorothiazide 12.5 MG Oral Tablet hydroCHLOROthi azide 12.5 MG hydroCHLOROthiazide 12.5 MG 10/19/2020 12:00:00 AM EDT 1.0 {tablet_in_the_morning} active hydroCHL OROthiazide 12.5 MG eCW1 ([facility]) Hydrochlorothiazide 12.5 MG Oral Tablet Hydrochlorothiazide 12.5 MG 10/19/2020 12:00:00 AM EDT 1.0 {tablet_in_the_morning} acti ve Hydrochlorothiazide 12.5 MG eCW1 ([facility]) Hydrochlorothiazide 12.5 MG Oral Tablet hydroCHLOROthi azide 12.5 MG hydroCHLOROthiazide 12.5 MG 10/19/2020 12:00:00 AM EDT 1.0 {tablet_in_the_morning} active hydroCHL OROthiazide 12.5 MG eCW1 ([facility]) Hydrochlorothiazide 12.5 MG Oral Tablet Hydrochlorothiazide 12.5 MG 10/19/2020 12:00:00 AM EDT 1.0 {tablet_in_the_morning} acti ve Hydrochlorothiazide 12.5 MG eCW1 ([facility]) Hydrochlorothiazide 12.5 MG Oral Tablet hydroCHLOROthi azide 12.5 MG hydroCHLOROthiazide 12.5 MG 10/19/2020 12:00:00 AM EDT 1.0 {tablet_in_the_morning} active hydroCHL OROthiazide 12.5 MG eCW1 ([facility]) Hydrochlorothiazide 12.5 MG Oral Tablet Hydrochlorothiazide 12.5 MG 10/19/2020 12:00:00 AM EDT 1.0 {tablet_in_the_morning} acti ve Hydrochlorothiazide 12.5 MG eCW1 ([facility]) Hydrochlorothiazide 12.5 MG Oral Tablet hydroCHLOROthi azide 12.5 MG hydroCHLOROthiazide 12.5 MG 10/19/2020 12:00:00 AM EDT 1.0 {tablet_in_the_morning} active hydroCHL OROthiazide 12.5 MG eCW1 ([facility]) Hydrochlorothiazide 12.5 MG Oral Tablet Hydrochlorothiazide 12.5 MG 10/19/2020 12:00:00 AM EDT 1.0 {tablet_in_the_morning} active eCW1 ([facility]) Hydrochlorothiazide 12.5 MG Oral Tablet hydroCHLOROthi azide 12.5 MG hydroCHLOROthiazide 12.5 MG 10/19/2020 12:00:00 AM EDT 1.0 {tablet_in_the_morning} active hydroCHL OROthiazide 12.5 MG eCW1 ([facility]) Hydrochlorothiazide 12.5 MG Oral Tablet hydroCHLOROthi azide 12.5 MG hydroCHLOROthiazide 12.5 MG 10/19/2020 12:00:00 AM EDT 1.0 {tablet_in_the_morning} active hydroCHL OROthiazide 12.5 MG eCW1 ([facility]) Losartan Potassium 25 MG Oral Tablet Losartan Potassium 25 M G 10/19/2020 12:00:00 AM EDT 1.0 {tablet} active Lo sartan Potassium 25 MG eCW1 ([facility]) Hydrochlorothiazide 12.5 MG Oral Tablet hydroCHLOROthi azide 12.5 MG hydroCHLOROthiazide 12.5 MG 10/19/2020 12:00:00 AM EDT 1.0 {tablet_in_the_morning} active hydroCHL OROthiazide 12.5 MG eCW1 ([facility]) Hydrochlorothiazide 12.5 MG Oral Tablet Hydrochlorothiazide 12.5 MG 10/19/2020 12:00:00 AM EDT 1.0 {tablet_in_the_morning} acti ve Hydrochlorothiazide 12.5 MG eCW1 ([facility]) Hydrochlorothiazide 12.5 MG Oral Tablet hydroCHLOROthi azide 12.5 MG hydroCHLOROthiazide 12.5 MG 10/19/2020 12:00:00 AM EDT 1.0 {tablet_in_the_morning} active eCW1 ([facility]) Hydrochlorothiazide 12.5 MG Oral Tablet hydroCHLOROthi azide 12.5 MG hydroCHLOROthiazide 12.5 MG 10/19/2020 12:00:00 AM EDT 1.0 {tablet_in_the_morning} active hydroCHL OROthiazide 12.5 MG eCW1 ([facility]) Losartan Potassium 25 MG Oral Tablet Losartan Potassium 25 M G 10/19/2020 12:00:00 AM EDT 1.0 {tablet} active Lo sartan Potassium 25 MG eCW1 ([facility]) Hydrochlorothiazide 12.5 MG Oral Tablet hydroCHLOROthi azide 12.5 MG hydroCHLOROthiazide 12.5 MG 10/19/2020 12:00:00 AM EDT 1.0 {tablet_in_the_morning} active hydroCHL OROthiazide 12.5 MG eCW1 ([facility]) Hydrochlorothiazide 12.5 MG Oral Tablet hydroCHLOROthi azide 12.5 MG hydroCHLOROthiazide 12.5 MG 10/19/2020 12:00:00 AM EDT 1.0 {tablet_in_the_morning} active hydroCHL OROthiazide 12.5 MG eCW1 ([facility]) Losartan Potassium 25 MG Oral Tablet Losartan Potassium 25 M G 10/19/2020 12:00:00 AM EDT 1.0 {tablet} active Lo sartan Potassium 25 MG eCW1 ([facility]) Hydrochlorothiazide 12.5 MG Oral Tablet hydroCHLOROthi azide 12.5 MG hydroCHLOROthiazide 12.5 MG 10/19/2020 12:00:00 AM EDT 1.0 {tablet_in_the_morning} active hydroCHL OROthiazide 12.5 MG eCW1 ([facility]) Hydrochlorothiazide 12.5 MG Oral Tablet hydroCHLOROthi azide 12.5 MG hydroCHLOROthiazide 12.5 MG 10/19/2020 12:00:00 AM EDT 1.0 {tablet_in_the_morning} active hydroCHL OROthiazide 12.5 MG eCW1 ([facility]) Hydrochlorothiazide 12.5 MG Oral Tablet hydroCHLOROthi azide 12.5 MG hydroCHLOROthiazide 12.5 MG 10/19/2020 12:00:00 AM EDT 1.0 {tablet_in_the_morning} active hydroCHL OROthiazide 12.5 MG eCW1 ([facility]) Losartan Potassium 25 MG Oral Tablet Losartan Potassium 25 M G 10/19/2020 12:00:00 AM EDT 1.0 {tablet} active Lo sartan Potassium 25 MG eCW1 ([facility]) Hydrochlorothiazide 12.5 MG Oral Tablet hydroCHLOROthi azide 12.5 MG hydroCHLOROthiazide 12.5 MG 10/19/2020 12:00:00 AM EDT 1.0 {tablet_in_the_morning} active hydroCHL OROthiazide 12.5 MG eCW1 ([facility]) Hydrochlorothiazide 12.5 MG Oral Tablet hydroCHLOROthi azide 12.5 MG hydroCHLOROthiazide 12.5 MG 10/19/2020 12:00:00 AM EDT 1.0 {tablet_in_the_morning} active hydroCHL OROthiazide 12.5 MG eCW1 ([facility]) Losartan Potassium 25 MG Oral Tablet Losartan Potassium 25 M G 10/19/2020 12:00:00 AM EDT 1.0 {tablet} active eCW1 ([facility]) Hydrochlorothiazide 12.5 MG Oral Tablet hydroCHLOROthi azide 12.5 MG hydroCHLOROthiazide 12.5 MG 10/19/2020 12:00:00 AM EDT 1.0 {tablet_in_the_morning} active eCW1 ([facility]) Losartan Potassium 25 MG Oral Tablet Losartan Potassium 25 M G 10/19/2020 12:00:00 AM EDT 1.0 {tablet} active Lo sartan Potassium 25 MG eCW1 ([facility]) Losartan Potassium 25 MG Oral Tablet Losartan Potassium 25 M G 10/19/2020 12:00:00 AM EDT 1.0 {tablet} active Lo sartan Potassium 25 MG eCW1 ([facility]) Hydrochlorothiazide 12.5 MG Oral Tablet hydroCHLOROthi azide 12.5 MG hydroCHLOROthiazide 12.5 MG 10/19/2020 12:00:00 AM EDT 1.0 {tablet_in_the_morning} active hydroCHL OROthiazide 12.5 MG eCW1 ([facility]) Hydrochlorothiazide 12.5 MG Oral Tablet hydroCHLOROthi azide 12.5 MG hydroCHLOROthiazide 12.5 MG 10/19/2020 12:00:00 AM EDT 1.0 {tablet_in_the_morning} active hydroCHL OROthiazide 12.5 MG eCW1 ([facility]) Hydrochlorothiazide 12.5 MG Oral Tablet hydroCHLOROthi azide 12.5 MG hydroCHLOROthiazide 12.5 MG 10/19/2020 12:00:00 AM EDT 1.0 {tablet_in_the_morning} active hydroCHL OROthiazide 12.5 MG eCW1 ([facility]) Hydrochlorothiazide 12.5 MG Oral Tablet Hydrochlorothiazide 12.5 MG 10/19/2020 12:00:00 AM EDT 1.0 {tablet_in_the_morning} active eCW1 ([facility]) Losartan Potassium 25 MG Oral Tablet Losartan Potassium 25 M G 10/19/2020 12:00:00 AM EDT 1.0 {tablet} active eCW1 ([facility]) Hydrochlorothiazide 12.5 MG Oral Tablet hydroCHLOROthi azide 12.5 MG hydroCHLOROthiazide 12.5 MG 10/19/2020 12:00:00 AM EDT 1.0 {tablet_in_the_morning} active hydroCHL OROthiazide 12.5 MG eCW1 ([facility]) Hydrochlorothiazide 12.5 MG Oral Tablet hydroCHLOROthi azide 12.5 MG hydroCHLOROthiazide 12.5 MG 10/19/2020 12:00:00 AM EDT 1.0 {tablet_in_the_morning} active hydroCHL OROthiazide 12.5 MG eCW1 ([facility]) Hydrochlorothiazide 12.5 MG Oral Tablet hydroCHLOROthi azide 12.5 MG hydroCHLOROthiazide 12.5 MG 10/19/2020 12:00:00 AM EDT 1.0 {tablet_in_the_morning} active hydroCHL OROthiazide 12.5 MG eCW1 ([facility]) Losartan Potassium 25 MG Oral Tablet Losartan Potassium 25 M G 10/19/2020 12:00:00 AM EDT 1.0 {tablet} active Lo sartan Potassium 25 MG eCW1 ([facility]) Hydrochlorothiazide 12.5 MG Oral Tablet Hydrochlorothiazide 12.5 MG 10/19/2020 12:00:00 AM EDT 1.0 {tablet_in_the_morning} acti ve Hydrochlorothiazide 12.5 MG eCW1 ([facility]) Hydrochlorothiazide 12.5 MG Oral Tablet hydroCHLOROthi azide 12.5 MG hydroCHLOROthiazide 12.5 MG 10/19/2020 12:00:00 AM EDT 1.0 {tablet_in_the_morning} active hydroCHL OROthiazide 12.5 MG eCW1 ([facility]) Hydrochlorothiazide 12.5 MG Oral Tablet Hydrochlorothiazide 12.5 MG 10/19/2020 12:00:00 AM EDT 1.0 {tablet_in_the_morning} acti ve Hydrochlorothiazide 12.5 MG eCW1 ([facility]) Hydrochlorothiazide 12.5 MG Oral Tablet hydroCHLOROthi azide 12.5 MG hydroCHLOROthiazide 12.5 MG 10/19/2020 12:00:00 AM EDT 1.0 {tablet_in_the_morning} active hydroCHL OROthiazide 12.5 MG eCW1 ([facility]) Acetaminophen 325 MG / Hydrocodone Sae trate 7.5 MG Oral Tablet Hydrocodone- Acetaminophen 7.5-325 MG Hydrocodone-Acetaminophen 7.5-325 MG 09/30/2020 12:00:00 AM EDT 1.0 {tablet_as_needed} active Hydrocodone- Acetaminophen 7.5-325 MG eCW1 ([facility]) Acetaminophen 325 MG / Hydrocodone Sae trate 7.5 MG Oral Tablet Hydrocodone- Acetaminophen 7.5-325 MG Hydrocodone-Acetaminophen 7.5-325 MG 09/30/2020 12:00:00 AM EDT 1.0 {tablet_as_needed} active Hydrocodone- Acetaminophen 7.5-325 MG eCW1 ([facility]) Acetaminophen 325 MG / Hydrocodone Sae trate 7.5 MG Oral Tablet Hydrocodone- Acetaminophen 7.5-325 MG Hydrocodone-Acetaminophen 7.5-325 MG 09/30/2020 12:00:00 AM EDT 1.0 {tablet_as_needed} active Hydrocodone- Acetaminophen 7.5-325 MG eCW1 ([facility]) Acetaminophen 325 MG / Hydrocodone Sae trate 7.5 MG Oral Tablet Hydrocodone- Acetaminophen 7.5-325 MG Hydrocodone-Acetaminophen 7.5-325 MG 09/30/2020 12:00:00 AM EDT 1.0 {tablet_as_needed} active Hydrocodone- Acetaminophen 7.5-325 MG eCW1 ([facility]) Acetaminophen 325 MG / Hydrocodone Sae trate 7.5 MG Oral Tablet Hydrocodone- Acetaminophen 7.5-325 MG Hydrocodone-Acetaminophen 7.5-325 MG 09/30/2020 12:00:00 AM EDT 1.0 {tablet_as_needed} active Hydrocodone- Acetaminophen 7.5-325 MG eCW1 ([facility]) Acetaminophen 325 MG / Hydrocodone Sae trate 7.5 MG Oral Tablet Hydrocodone- Acetaminophen 7.5-325 MG Hydrocodone-Acetaminophen 7.5-325 MG 09/30/2020 12:00:00 AM EDT 1.0 {tablet_as_needed} active Hydrocodone- Acetaminophen 7.5-325 MG eCW1 ([facility]) Acetaminophen 325 MG / Hydrocodone Sae trate 7.5 MG Oral Tablet Hydrocodone- Acetaminophen 7.5-325 MG Hydrocodone-Acetaminophen 7.5-325 MG 08/31/2020 12:00:00 AM EST 1.0 {tablet_as_needed} active Hydrocodone- Acetaminophen 7.5-325 MG eCW1 ([facility]) Acetaminophen 325 MG / Hydrocodone Sae trate 7.5 MG Oral Tablet Hydrocodone- Acetaminophen 7.5-325 MG Hydrocodone-Acetaminophen 7.5-325 MG 08/31/2020 12:00:00 AM EST 1.0 {tablet_as_needed} active Hydrocodone- Acetaminophen 7.5-325 MG eCW1 ([facility]) Acetaminophen 325 MG / Hydrocodone Sae trate 7.5 MG Oral Tablet Hydrocodone- Acetaminophen 7.5-325 MG Hydrocodone-Acetaminophen 7.5-325 MG 08/31/2020 12:00:00 AM EST 1.0 {tablet_as_needed} active Hydrocodone- Acetaminophen 7.5-325 MG eCW1 ([facility]) Acetaminophen 325 MG / Hydrocodone Sae trate 7.5 MG Oral Tablet Hydrocodone- Acetaminophen 7.5-325 MG Hydrocodone-Acetaminophen 7.5-325 MG 08/31/2020 12:00:00 AM EST 1.0 {tablet_as_needed} active Hydrocodone- Acetaminophen 7.5-325 MG eCW1 ([facility]) Acetaminophen 325 MG / Hydrocodone Sae trate 7.5 MG Oral Tablet Hydrocodone- Acetaminophen 7.5-325 MG Hydrocodone-Acetaminophen 7.5-325 MG 08/31/2020 12:00:00 AM EST 1.0 {tablet_as_needed} active Hydrocodone- Acetaminophen 7.5-325 MG eCW1 ([facility]) Acetaminophen 325 MG / Hydrocodone Sae trate 7.5 MG Oral Tablet Hydrocodone- Acetaminophen 7.5-325 MG Hydrocodone-Acetaminophen 7.5-325 MG 08/02/2020 12:00:00 AM EST 1.0 {tablet_as_needed} active Hydrocodone- Acetaminophen 7.5-325 MG eCW1 ([facility]) Acetaminophen 325 MG / Hydrocodone Sae trate 7.5 MG Oral Tablet Hydrocodone- Acetaminophen 7.5-325 MG Hydrocodone-Acetaminophen 7.5-325 MG 08/02/2020 12:00:00 AM EST 1.0 {tablet_as_needed} active Hydrocodone- Acetaminophen 7.5-325 MG eCW1 ([facility]) Hydrochlorothiazide 12.5 MG / Lisinopril 10 MG Oral Tablet Lisinopril- Hydrochlorothiazide 10-12.5 MG Lisinopril-Hydrochlorothiazide 10-12.5 MG 07/20/2020 12:00:00 AM EST 1.0 {tablet} active Lisinopril- Hydrochlorothiazide 10-12.5 MG eCW1 ([facility]) Hydrochlorothiazide 12.5 MG / Lisinopril 10 MG Oral Tablet Lisinopril- Hydrochlorothiazide 10-12.5 MG Lisinopril-Hydrochlorothiazide 10-12.5 MG 07/20/2020 12:00:00 AM EST 1.0 {tablet} active Lisinopril- Hydrochlorothiazide 10-12.5 MG eCW1 ([facility]) Hydrochlorothiazide 12.5 MG / Lisinopril 10 MG Oral Tablet Lisinopril- Hydrochlorothiazide 10-12.5 MG Lisinopril-Hydrochlorothiazide 10-12.5 MG 07/20/2020 12:00:00 AM EST 1.0 {tablet} active Lisinopril- Hydrochlorothiazide 10-12.5 MG eCW1 ([facility]) Hydrochlorothiazide 12.5 MG / Lisinopril 10 MG Oral Tablet Lisinopril- Hydrochlorothiazide 10-12.5 MG Lisinopril-Hydrochlorothiazide 10-12.5 MG 07/20/2020 12:00:00 AM EST 1.0 {tablet} active Lisinopril- Hydrochlorothiazide 10-12.5 MG eCW1 ([facility]) Hydrochlorothiazide 12.5 MG / Lisinopril 10 MG Oral Tablet Lisinopril- Hydrochlorothiazide 10-12.5 MG Lisinopril-Hydrochlorothiazide 10-12.5 MG 07/20/2020 12:00:00 AM EST 1.0 {tablet} active Lisinopril- Hydrochlorothiazide 10-12.5 MG eCW1 ([facility]) Hydrochlorothiazide 12.5 MG / Lisinopril 10 MG Oral Tablet Lisinopril- Hydrochlorothiazide 10-12.5 MG Lisinopril-Hydrochlorothiazide 10-12.5 MG 07/20/2020 12:00:00 AM EST 1.0 {tablet} active Lisinopril- Hydrochlorothiazide 10-12.5 MG eCW1 ([facility]) Hydrochlorothiazide 12.5 MG / Lisinopril 10 MG Oral Tablet Lisinopril- Hydrochlorothiazide 10-12.5 MG Lisinopril-Hydrochlorothiazide 10-12.5 MG 07/20/2020 12:00:00 AM EST 1.0 {tablet} active Lisinopril- Hydrochlorothiazide 10-12.5 MG eCW1 ([facility]) Hydrochlorothiazide 12.5 MG / Lisinopril 10 MG Oral Tablet Lisinopril- Hydrochlorothiazide 10-12.5 MG Lisinopril-Hydrochlorothiazide 10-12.5 MG 07/20/2020 12:00:00 AM EST 1.0 {tablet} active Lisinopril- Hydrochlorothiazide 10-12.5 MG eCW1 ([facility]) Hydrochlorothiazide 12.5 MG / Lisinopril 10 MG Oral Tablet Lisinopril- Hydrochlorothiazide 10-12.5 MG Lisinopril-Hydrochlorothiazide 10-12.5 MG 07/20/2020 12:00:00 AM EST 1.0 {tablet} active Lisinopril- Hydrochlorothiazide 10-12.5 MG eCW1 ([facility]) Hydrochlorothiazide 12.5 MG / Lisinopril 10 MG Oral Tablet Lisinopril- Hydrochlorothiazide 10-12.5 MG Lisinopril-Hydrochlorothiazide 10-12.5 MG 07/20/2020 12:00:00 AM EST 1.0 {tablet} active Lisinopril- Hydrochlorothiazide 10-12.5 MG eCW1 ([facility]) Hydrochlorothiazide 12.5 MG / Lisinopril 10 MG Oral Tablet Lisinopril- Hydrochlorothiazide 10-12.5 MG Lisinopril-Hydrochlorothiazide 10-12.5 MG 07/20/2020 12:00:00 AM EST 1.0 {tablet} active Lisinopril- Hydrochlorothiazide 10-12.5 MG eCW1 ([facility]) Hydrochlorothiazide 12.5 MG / Lisinopril 10 MG Oral Tablet Lisinopril- Hydrochlorothiazide 10-12.5 MG Lisinopril-Hydrochlorothiazide 10-12.5 MG 07/20/2020 12:00:00 AM EST 1.0 {tablet} active Lisinopril- Hydrochlorothiazide 10-12.5 MG eCW1 ([facility]) Hydrochlorothiazide 12.5 MG Oral Tablet Hydrochlorothiazide 12.5 MG 07/12/2020 12:00:00 AM EST 1.0 {tablet_in_the_morning} acti ve Hydrochlorothiazide 12.5 MG eCW1 ([facility]) Acetaminophen 325 MG / Hydrocodone Sae trate 7.5 MG Oral Tablet Hydrocodone- Acetaminophen 7.5-325 MG Hydrocodone-Acetaminophen 7.5-325 MG 06/28/2020 12:00:00 AM EST 1.0 {tablet_as_needed} active Hydrocodone- Acetaminophen 7.5-325 MG eCW1 ([facility]) Acetaminophen 325 MG / Hydrocodone Sae trate 7.5 MG Oral Tablet Hydrocodone- Acetaminophen 7.5-325 MG Hydrocodone-Acetaminophen 7.5-325 MG 06/28/2020 12:00:00 AM EST 1.0 {tablet_as_needed} active Hydrocodone- Acetaminophen 7.5-325 MG eCW1 ([facility]) Acetaminophen 325 MG / Hydrocodone Sae trate 7.5 MG Oral Tablet Hydrocodone- Acetaminophen 7.5-325 MG Hydrocodone-Acetaminophen 7.5-325 MG 06/28/2020 12:00:00 AM EST 1.0 {tablet_as_needed} active Hydrocodone- Acetaminophen 7.5-325 MG eCW1 ([facility]) Acetaminophen 325 MG / Hydrocodone Sae trate 7.5 MG Oral Tablet Hydrocodone- Acetaminophen 7.5-325 MG Hydrocodone-Acetaminophen 7.5-325 MG 06/28/2020 12:00:00 AM EST 1.0 {tablet_as_needed} active Hydrocodone- Acetaminophen 7.5-325 MG eCW1 ([facility]) Acetaminophen 325 MG / Hydrocodone Sae trate 7.5 MG Oral Tablet Hydrocodone- Acetaminophen 7.5-325 MG Hydrocodone-Acetaminophen 7.5-325 MG 06/28/2020 12:00:00 AM EST 1.0 {tablet_as_needed} active Hydrocodone- Acetaminophen 7.5-325 MG eCW1 ([facility]) Acetaminophen 325 MG / Hydrocodone Sae trate 7.5 MG Oral Tablet Hydrocodone- Acetaminophen 7.5-325 MG Hydrocodone-Acetaminophen 7.5-325 MG 06/28/2020 12:00:00 AM EST 1.0 {tablet_as_needed} active Hydrocodone- Acetaminophen 7.5-325 MG eCW1 ([facility]) Acetaminophen 325 MG / Hydrocodone Sae trate 7.5 MG Oral Tablet Hydrocodone- Acetaminophen 7.5-325 MG Hydrocodone-Acetaminophen 7.5-325 MG 06/28/2020 12:00:00 AM EST 1.0 {tablet_as_needed} active Hydrocodone- Acetaminophen 7.5-325 MG eCW1 ([facility]) Acetaminophen 325 MG / Hydrocodone Sae trate 7.5 MG Oral Tablet Hydrocodone- Acetaminophen 7.5-325 MG Hydrocodone-Acetaminophen 7.5-325 MG 06/28/2020 12:00:00 AM EST 1.0 {tablet_as_needed} active Hydrocodone- Acetaminophen 7.5-325 MG eCW1 ([facility]) Acetaminophen 325 MG / Hydrocodone Sae trate 7.5 MG Oral Tablet Hydrocodone- Acetaminophen 7.5-325 MG Hydrocodone-Acetaminophen 7.5-325 MG 06/28/2020 12:00:00 AM EST 1.0 {tablet_as_needed} active Hydrocodone- Acetaminophen 7.5-325 MG eCW1 ([facility]) Acetaminophen 325 MG / Hydrocodone Sae trate 7.5 MG Oral Tablet Hydrocodone- Acetaminophen 7.5-325 MG Hydrocodone-Acetaminophen 7.5-325 MG 06/27/2020 12:00:00 AM EST 1.0 {tablet_as_needed} active Hydrocodone- Acetaminophen 7.5-325 MG eCW1 ([facility]) pantoprazole 20 MG Delayed Release Oral Tablet Pantopr azole Sodium 20 MG Pantoprazole Sodium 20 MG 06/16/2020 12:00:00 AM EST 1.0 {tablet} active Pantoprazole Sodium 20 MG eCW1 ( [facility]) pantoprazole 20 MG Delayed Release Oral Tablet Pantopr azole Sodium 20 MG Pantoprazole Sodium 20 MG 06/16/2020 12:00:00 AM EST 1.0 {tablet} active Pantoprazole Sodium 20 MG eCW1 ( [facility]) pantoprazole 20 MG Delayed Release Oral Tablet Pantopr azole Sodium 20 MG Pantoprazole Sodium 20 MG 06/16/2020 12:00:00 AM EST 1.0 {tablet} active Pantoprazole Sodium 20 MG eCW1 ( [facility]) pantoprazole 20 MG Delayed Release Oral Tablet Pantopr azole Sodium 20 MG Pantoprazole Sodium 20 MG 06/16/2020 12:00:00 AM EST 1.0 {tablet} active Pantoprazole Sodium 20 MG eCW1 ( [facility]) pantoprazole 20 MG Delayed Release Oral Tablet Pantopr azole Sodium 20 MG Pantoprazole Sodium 20 MG 06/16/2020 12:00:00 AM EST 1.0 {tablet} active Pantoprazole Sodium 20 MG eCW1 ( [facility]) pantoprazole 20 MG Delayed Release Oral Tablet Pantopr azole Sodium 20 MG Pantoprazole Sodium 20 MG 06/16/2020 12:00:00 AM EST 1.0 {tablet} active eCW1 ([facility]) pantoprazole 20 MG Delayed Release Oral Tablet Pantopr azole Sodium 20 MG Pantoprazole Sodium 20 MG 06/16/2020 12:00:00 AM EST 1.0 {tablet} active Pantoprazole Sodium 20 MG eCW1 ( [facility]) pantoprazole 20 MG Delayed Release Oral Tablet Pantopr azole Sodium 20 MG Pantoprazole Sodium 20 MG 06/16/2020 12:00:00 AM EST 1.0 {tablet} active Pantoprazole Sodium 20 MG eCW1 ( [facility]) pantoprazole 20 MG Delayed Release Oral Tablet Pantopr azole Sodium 20 MG Pantoprazole Sodium 20 MG 06/16/2020 12:00:00 AM EST 1.0 {tablet} active Pantoprazole Sodium 20 MG eCW1 ( [facility]) pantoprazole 20 MG Delayed Release Oral Tablet Pantopr azole Sodium 20 MG Pantoprazole Sodium 20 MG 06/16/2020 12:00:00 AM EST 1.0 {tablet} active Pantoprazole Sodium 20 MG eCW1 ( [facility]) pantoprazole 20 MG Delayed Release Oral Tablet Pantopr azole Sodium 20 MG Pantoprazole Sodium 20 MG 06/16/2020 12:00:00 AM EST 1.0 {tablet} active Pantoprazole Sodium 20 MG eCW1 ( [facility]) pantoprazole 20 MG Delayed Release Oral Tablet Pantopr azole Sodium 20 MG Pantoprazole Sodium 20 MG 06/16/2020 12:00:00 AM EST 1.0 {tablet} active Pantoprazole Sodium 20 MG eCW1 ( [facility]) pantoprazole 20 MG Delayed Release Oral Tablet Pantopr azole Sodium 20 MG Pantoprazole Sodium 20 MG 06/16/2020 12:00:00 AM EST 1.0 {tablet} active Pantoprazole Sodium 20 MG eCW1 ( [facility]) pantoprazole 20 MG Delayed Release Oral Tablet Pantopr azole Sodium 20 MG Pantoprazole Sodium 20 MG 06/16/2020 12:00:00 AM EST 1.0 {tablet} active Pantoprazole Sodium 20 MG eCW1 ( [facility]) pantoprazole 20 MG Delayed Release Oral Tablet Pantopr azole Sodium 20 MG Pantoprazole Sodium 20 MG 06/16/2020 12:00:00 AM EST 1.0 {tablet} active Pantoprazole Sodium 20 MG eCW1 ( [facility]) pantoprazole 20 MG Delayed Release Oral Tablet Pantopr azole Sodium 20 MG Pantoprazole Sodium 20 MG 06/16/2020 12:00:00 AM EST 1.0 {tablet} active Pantoprazole Sodium 20 MG eCW1 ( [facility]) pantoprazole 20 MG Delayed Release Oral Tablet Pantopr azole Sodium 20 MG Pantoprazole Sodium 20 MG 06/16/2020 12:00:00 AM EST 1.0 {tablet} active Pantoprazole Sodium 20 MG eCW1 ( [facility]) pantoprazole 20 MG Delayed Release Oral Tablet Pantopr azole Sodium 20 MG Pantoprazole Sodium 20 MG 06/16/2020 12:00:00 AM EST 1.0 {tablet} active Pantoprazole Sodium 20 MG eCW1 ( [facility]) pantoprazole 20 MG Delayed Release Oral Tablet Pantopr azole Sodium 20 MG Pantoprazole Sodium 20 MG 06/16/2020 12:00:00 AM EST 1.0 {tablet} active Pantoprazole Sodium 20 MG eCW1 ( [facility]) pantoprazole 20 MG Delayed Release Oral Tablet Pantopr azole Sodium 20 MG Pantoprazole Sodium 20 MG 06/16/2020 12:00:00 AM EST 1.0 {tablet} active Pantoprazole Sodium 20 MG eCW1 ( [facility]) pantoprazole 20 MG Delayed Release Oral Tablet Pantopr azole Sodium 20 MG Pantoprazole Sodium 20 MG 06/16/2020 12:00:00 AM EST 1.0 {tablet} active Pantoprazole Sodium 20 MG eCW1 ( [facility]) pantoprazole 20 MG Delayed Release Oral Tablet Pantopr azole Sodium 20 MG Pantoprazole Sodium 20 MG 06/16/2020 12:00:00 AM EST 1.0 {tablet} active Pantoprazole Sodium 20 MG eCW1 ( [facility]) pantoprazole 20 MG Delayed Release Oral Tablet Pantopr azole Sodium 20 MG Pantoprazole Sodium 20 MG 06/16/2020 12:00:00 AM EST 1.0 {tablet} active Pantoprazole Sodium 20 MG eCW1 ( [facility]) pantoprazole 20 MG Delayed Release Oral Tablet Pantopr azole Sodium 20 MG Pantoprazole Sodium 20 MG 06/16/2020 12:00:00 AM EST 1.0 {tablet} active Pantoprazole Sodium 20 MG eCW1 ( [facility]) pantoprazole 20 MG Delayed Release Oral Tablet Pantopr azole Sodium 20 MG Pantoprazole Sodium 20 MG 06/16/2020 12:00:00 AM EST 1.0 {tablet} active Pantoprazole Sodium 20 MG eCW1 ( [facility]) pantoprazole 20 MG Delayed Release Oral Tablet Pantopr azole Sodium 20 MG Pantoprazole Sodium 20 MG 06/16/2020 12:00:00 AM EST 1.0 {tablet} active Pantoprazole Sodium 20 MG eCW1 ( [facility]) pantoprazole 20 MG Delayed Release Oral Tablet Pantopr azole Sodium 20 MG Pantoprazole Sodium 20 MG 06/16/2020 12:00:00 AM EST 1.0 {tablet} active Pantoprazole Sodium 20 MG eCW1 ( [facility]) pantoprazole 20 MG Delayed Release Oral Tablet Pantopr azole Sodium 20 MG Pantoprazole Sodium 20 MG 06/16/2020 12:00:00 AM EST 1.0 {tablet} active Pantoprazole Sodium 20 MG eCW1 ( [facility]) pantoprazole 20 MG Delayed Release Oral Tablet Pantopr azole Sodium 20 MG Pantoprazole Sodium 20 MG 06/16/2020 12:00:00 AM EST 1.0 {tablet} active Pantoprazole Sodium 20 MG eCW1 ( [facility]) pantoprazole 20 MG Delayed Release Oral Tablet Pantopr azole Sodium 20 MG Pantoprazole Sodium 20 MG 06/16/2020 12:00:00 AM EST 1.0 {tablet} active Pantoprazole Sodium 20 MG eCW1 ( [facility]) pantoprazole 20 MG Delayed Release Oral Tablet Pantopr azole Sodium 20 MG Pantoprazole Sodium 20 MG 06/16/2020 12:00:00 AM EST 1.0 {tablet} active Pantoprazole Sodium 20 MG eCW1 ( [facility]) pantoprazole 20 MG Delayed Release Oral Tablet Pantopr azole Sodium 20 MG Pantoprazole Sodium 20 MG 06/16/2020 12:00:00 AM EST 1.0 {tablet} active Pantoprazole Sodium 20 MG eCW1 ( [facility]) pantoprazole 20 MG Delayed Release Oral Tablet Pantopr azole Sodium 20 MG Pantoprazole Sodium 20 MG 06/16/2020 12:00:00 AM EST 1.0 {tablet} active Pantoprazole Sodium 20 MG eCW1 ( [facility]) pantoprazole 20 MG Delayed Release Oral Tablet Pantopr azole Sodium 20 MG Pantoprazole Sodium 20 MG 06/16/2020 12:00:00 AM EST 1.0 {tablet} active eCW1 ([facility]) pantoprazole 20 MG Delayed Release Oral Tablet Pantopr azole Sodium 20 MG Pantoprazole Sodium 20 MG 06/16/2020 12:00:00 AM EST 1.0 {tablet} active Pantoprazole Sodium 20 MG eCW1 ( [facility]) pantoprazole 20 MG Delayed Release Oral Tablet Pantopr azole Sodium 20 MG Pantoprazole Sodium 20 MG 06/16/2020 12:00:00 AM EST 1.0 {tablet} active Pantoprazole Sodium 20 MG eCW1 ( [facility]) pantoprazole 20 MG Delayed Release Oral Tablet Pantopr azole Sodium 20 MG Pantoprazole Sodium 20 MG 06/16/2020 12:00:00 AM EST 1.0 {tablet} active Pantoprazole Sodium 20 MG eCW1 ( [facility]) pantoprazole 20 MG Delayed Release Oral Tablet Pantopr azole Sodium 20 MG Pantoprazole Sodium 20 MG 06/16/2020 12:00:00 AM EST 1.0 {tablet} active Pantoprazole Sodium 20 MG eCW1 ( [facility]) pantoprazole 20 MG Delayed Release Oral Tablet Pantopr azole Sodium 20 MG Pantoprazole Sodium 20 MG 06/16/2020 12:00:00 AM EST 1.0 {tablet} active Pantoprazole Sodium 20 MG eCW1 ( [facility]) pantoprazole 20 MG Delayed Release Oral Tablet Pantopr azole Sodium 20 MG Pantoprazole Sodium 20 MG 06/16/2020 12:00:00 AM EST 1.0 {tablet} active eCW1 ([facility]) pantoprazole 20 MG Delayed Release Oral Tablet Pantopr azole Sodium 20 MG Pantoprazole Sodium 20 MG 06/16/2020 12:00:00 AM EST 1.0 {tablet} active Pantoprazole Sodium 20 MG eCW1 ( [facility]) pantoprazole 20 MG Delayed Release Oral Tablet Pantopr azole Sodium 20 MG Pantoprazole Sodium 20 MG 06/16/2020 12:00:00 AM EST 1.0 {tablet} active Pantoprazole Sodium 20 MG eCW1 ( [facility]) Acetaminophen 325 MG / Hydrocodone Sae trate 7.5 MG Oral Tablet Hydrocodone- Acetaminophen 7.5-325 MG Hydrocodone-Acetaminophen 7.5-325 MG 06/01/2020 12:00:00 AM EST 1.0 {tablet_as_needed} active Hydrocodone- Acetaminophen 7.5-325 MG eCW1 ([facility]) Acetaminophen 325 MG / Hydrocodone Sae trate 7.5 MG Oral Tablet Hydrocodone- Acetaminophen 7.5-325 MG Hydrocodone-Acetaminophen 7.5-325 MG 06/01/2020 12:00:00 AM EST 1.0 {tablet_as_needed} active Hydrocodone- Acetaminophen 7.5-325 MG eCW1 ([facility]) Acetaminophen 325 MG / Hydrocodone Sae trate 7.5 MG Oral Tablet Hydrocodone- Acetaminophen 7.5-325 MG Hydrocodone-Acetaminophen 7.5-325 MG 06/01/2020 12:00:00 AM EST 1.0 {tablet_as_needed} active Hydrocodone- Acetaminophen 7.5-325 MG eCW1 ([facility]) Acetaminophen 325 MG / Hydrocodone Sae trate 7.5 MG Oral Tablet Hydrocodone- Acetaminophen 7.5-325 MG Hydrocodone-Acetaminophen 7.5-325 MG 06/01/2020 12:00:00 AM EST 1.0 {tablet_as_needed} active Hydrocodone- Acetaminophen 7.5-325 MG eCW1 ([facility]) Famotidine 40 MG Oral Tablet Famotidine 40 MG 05/16/2020 12:00:00 A M EST 1.0 {tablet_at_bedtime} active Famotidine 4 0 MG eCW1 ([facility]) Famotidine 40 MG Oral Tablet Famotidine 40 MG 05/16/2020 12:00:00 A M EST 1.0 {tablet_at_bedtime} active Famotidine 4 0 MG eCW1 ([facility]) Famotidine 40 MG Oral Tablet Famotidine 40 MG 05/16/2020 12:00:00 A M EST 1.0 {tablet_at_bedtime} active Famotidine 4 0 MG eCW1 ([facility]) Famotidine 40 MG Oral Tablet Famotidine 40 MG 05/16/2020 12:00:00 A M EST 1.0 {tablet_at_bedtime} active Famotidine 4 0 MG eCW1 ([facility]) Phentermine Hydrochloride 37.5 MG Oral Capsule Phenter mine HCl 37.5 MG Phentermine HCl 37.5 MG 04/18/2020 12:00:00 AM EDT active Phentermine HCl 37.5 MG eCW1 ([facility]) Phentermine Hydrochloride 37.5 MG Oral Capsule Phenter mine HCl 37.5 MG Phentermine HCl 37.5 MG 04/18/2020 12:00:00 AM EDT 1.0 {capsule} active Phentermine HCl 37.5 MG eCW1 ([facility]) Phentermine Hydrochloride 37.5 MG Oral Capsule Phenter mine HCl 37.5 MG Phentermine HCl 37.5 MG 04/18/2020 12:00:00 AM EDT 1.0 {capsule} active Phentermine HCl 37.5 MG eCW1 ([facility]) Phentermine Hydrochloride 37.5 MG Oral Capsule Phenter mine HCl 37.5 MG Phentermine HCl 37.5 MG 04/18/2020 12:00:00 AM EDT 1.0 {capsule} active Phentermine HCl 37.5 MG eCW1 ([facility]) Phentermine Hydrochloride 37.5 MG Oral Capsule Phenter mine HCl 37.5 MG Phentermine HCl 37.5 MG 04/18/2020 12:00:00 AM EDT 1.0 {capsule} active Phentermine HCl 37.5 MG eCW1 ([facility]) Phentermine Hydrochloride 37.5 MG Oral Capsule Phenter mine HCl 37.5 MG Phentermine HCl 37.5 MG 04/18/2020 12:00:00 AM EDT 1.0 {capsule} active Phentermine HCl 37.5 MG eCW1 ([facility]) Phentermine Hydrochloride 37.5 MG Oral Capsule Phenter mine HCl 37.5 MG Phentermine HCl 37.5 MG 04/18/2020 12:00:00 AM EDT 1.0 {capsule} active Phentermine HCl 37.5 MG eCW1 ([facility]) Phentermine Hydrochloride 37.5 MG Oral Capsule Phenter mine HCl 37.5 MG Phentermine HCl 37.5 MG 04/18/2020 12:00:00 AM EDT 1.0 {capsule} active Phentermine HCl 37.5 MG eCW1 ([facility]) Phentermine Hydrochloride 37.5 MG Oral Capsule Phenter mine HCl 37.5 MG Phentermine HCl 37.5 MG 04/18/2020 12:00:00 AM EDT 1.0 {capsule} active Phentermine HCl 37.5 MG eCW1 ([facility]) Phentermine Hydrochloride 37.5 MG Oral Capsule Phenter mine HCl 37.5 MG Phentermine HCl 37.5 MG 04/18/2020 12:00:00 AM EDT 1.0 {capsule} active Phentermine HCl 37.5 MG eCW1 ([facility]) Acetaminophen 325 MG / Hydrocodone Sae trate 7.5 MG Oral Tablet Hydrocodone- Acetaminophen 7.5-325 MG Hydrocodone-Acetaminophen 7.5-325 MG 04/13/2020 12:00:00 AM EDT 1.0 {tablet_as_needed} active Hydrocodone- Acetaminophen 7.5-325 MG eCW1 ([facility]) Acetaminophen 325 MG / Hydrocodone Sae trate 7.5 MG Oral Tablet Hydrocodone- Acetaminophen 7.5-325 MG Hydrocodone-Acetaminophen 7.5-325 MG 04/13/2020 12:00:00 AM EDT 1.0 {tablet_as_needed} active Hydrocodone- Acetaminophen 7.5-325 MG eCW1 ([facility]) Acetaminophen 325 MG / Hydrocodone Sae trate 7.5 MG Oral Tablet Hydrocodone- Acetaminophen 7.5-325 MG Hydrocodone-Acetaminophen 7.5-325 MG 04/13/2020 12:00:00 AM EDT 1.0 {tablet_as_needed} active Hydrocodone- Acetaminophen 7.5-325 MG eCW1 ([facility]) Acetaminophen 325 MG / Hydrocodone Sae trate 7.5 MG Oral Tablet Hydrocodone- Acetaminophen 7.5-325 MG Hydrocodone-Acetaminophen 7.5-325 MG 04/13/2020 12:00:00 AM EDT 1.0 {tablet_as_needed} active Hydrocodone- Acetaminophen 7.5-325 MG eCW1 ([facility]) Acetaminophen 325 MG / Hydrocodone Sae trate 7.5 MG Oral Tablet Hydrocodone- Acetaminophen 7.5-325 MG Hydrocodone-Acetaminophen 7.5-325 MG 04/13/2020 12:00:00 AM EDT 1.0 {tablet_as_needed} active Hydrocodone- Acetaminophen 7.5-325 MG eCW1 ([facility]) Acetaminophen 325 MG / Hydrocodone Sae trate 7.5 MG Oral Tablet Hydrocodone- Acetaminophen 7.5-325 MG Hydrocodone-Acetaminophen 7.5-325 MG 04/13/2020 12:00:00 AM EDT 1.0 {tablet_as_needed} active Hydrocodone- Acetaminophen 7.5-325 MG eCW1 ([facility]) Acetaminophen 325 MG / Hydrocodone Sae trate 7.5 MG Oral Tablet Hydrocodone- Acetaminophen 7.5-325 MG Hydrocodone-Acetaminophen 7.5-325 MG 04/13/2020 12:00:00 AM EDT 1.0 {tablet_as_needed} active Hydrocodone- Acetaminophen 7.5-325 MG eCW1 ([facility]) Acetaminophen 325 MG / Hydrocodone Ase trate 7.5 MG Oral Tablet Hydrocodone- Acetaminophen 7.5-325 MG Hydrocodone-Acetaminophen 7.5-325 MG 04/13/2020 12:00:00 AM EDT 1.0 {tablet_as_needed} active Hydrocodone- Acetaminophen 7.5-325 MG eCW1 ([facility]) Acetaminophen 325 MG / Hydrocodone Sae trate 7.5 MG Oral Tablet Hydrocodone- Acetaminophen 7.5-325 MG Hydrocodone-Acetaminophen 7.5-325 MG 04/13/2020 12:00:00 AM EDT 1.0 {tablet_as_needed} active Hydrocodone- Acetaminophen 7.5-325 MG eCW1 ([facility]) Insurance Providers Payer name Policy type / Coverage type Policy ID Covered democrat ID Covered democrat's relationship to so Policy So Plan Information [facility] [id number] SP [id number] [facility] [id number] Self [id number] [address] [facility] [id number] Self [id number] [facility] Commercial [id number] Self [id number] [facility] Commercial [id number] Self [id number] [facility] Commercial [id number] Self [id number] [facility] [id number] SP [id number] [facility] I [id number] Self [id number] [facility] [id number] SP [id number] [facility] [id number] SP [id number] [facility] Essential Comm Plan F [id number] SELF [id number] [facility] Essential Comm Plan F [id number] SELF [id number] [facility] Comm Plan Medicaid F [id number] SELF [id number] [facility]-Medicaid [id number] ANSI-Medicaid [id number] ANSI-Medicaid [id number] ANSI-Medicaid [id number] ANSI-Medicaid [id number] ANSI-Medicaid [id number] ANSI-Medicaid [id number] ANSI-Medicaid [id number] ANSI-Medicaid [id number] ANSI-Medicaid [id number] ANSI-Medicaid [id number] ANSI-Medicaid [id number] ANSI-Medicaid [id number] ANSI-Medicaid [id number] ANSI-Medicaid [id number] ANSI-Medicaid [id number] ANSI-Medicaid [id number] ANSI-Medicaid [id number] ANSI-Medicaid [id number] ANSI-Medicaid [id number] ANSI-Medicaid [id number] ANSI-Medicaid [id number] ANSI-Medicaid [id number] ANSI-Medicaid [id number] ANSI-Medicaid [id number] ANSI-Medicaid [id number] ANSI-Medicaid [id number] ANSI-Medicaid [id number] ANSI-Medicaid [id number] ANSI-Medicaid [id number] ANSI-Medicaid [id number] ANSI-Medicaid [id number] ANSI-Medicaid [id number] ANSI-Medicaid [id number] ANSI-Medicaid [id number] ANSI-Medicaid [id number] ANSI-Medicaid [id number] ANSI-Medicaid [id number] ANSI-Medicaid [id number] ANSI-Medicaid [id number] ANSI-Medicaid [id number] ANSI-Medicaid [id number] ANSI-Medicaid [id number] [facility] O [id number] S [id number] ANSI-Medicaid [id number] ANSI-Medicaid [id number] ANSI-Medicaid [id number] ANSI-Medicaid [id number] ANSI-Medicaid [id number] ANSI-Medicaid [id number] [facility] [id number] [place] [id number] [facility] [id number] SP [id number] ANSI-Medicaid [id number] ANSI-Medicaid [id number] ANSI-Medicaid [id number] ANSI-Medicaid [id number] ANSI-Medicaid [id number] ANSI-Medicaid [id number] MEDICAID [id number] SP [id number] [place] O [id number] S [id number] APRIL [id number] SP [id number] [place]BS [place] 210/710 [id number] SP [id number] MEDICAID M [id number] S [id number] [place] 210/710 [id number] SP [id number] UNHC COMMUNITY PLAN MCDHMO [id number] SP [id number] UNHC COMMUNITY PLAN MCDHMO [id number] SP [id number] UNHC COMMUNITY PLAN MCDHMO [id number] SP [id number] UNHC COMMUNITY PLAN XIX - OP/ER [id number] 18 [id number] UNHC COMMUNITY PLAN MCDHMO [id number] SP [id number] [facility]) O [id number] S [id number] ANSI-Medicaid [id number] ANSI-Medicaid [id number] ANSI-Medicaid [id number] ANSI-Medicaid [id number] [facility]-Medicaid [id number] Problems, Conditions, and Diagnoses Code Display Name Description Problem Type Effective Dates Data Source(s) F96336 Personal history of nicotine dependence Personal history of nicotine dependence Diagnosis 02/18/2021 06:07:00 PM EDT [facility] I10 Essential (primary) hypertension Essential (primary) h ypertension Diagnosis 02/18/2021 06:07:00 PM EDT [facility] [id number] Muscle spasm of back Muscle spasm of back Diagnosis 02/18/2021 06:07:00 PM EDT [facility] M546 Pain in thoracic spine Pain in thoracic spine Diagnosi s 02/18/2021 06:07:00 PM EDT [facility] F17.211 [id number] Cigarette nicotine dependence in [facility] n Problem 05/23/2021 12:00:00 AM EST eCW1 ([facility]) E66.9 [id number] Obesity (BMI 30.0-34.9) Problem 1 07/23/2020 12:00:00 AM EST eCW1 ([facility]) E66.3 [id number] Overweight (BMI 25.0-29.9) Problem 12:00:00 AM EST eCW1 ([facility]) Z68.30 [id number] BMI 30.0-30.9,adult Problem 11/17/2020 12:00 :00 AM EDT eCW1 ([facility]) G62.9 [id number] Neuropathy Problem 11/08/2020 12:00:00 AM ED T eCW1 ([facility]) M47.817 31829289 Spondylosis without myelopathy or radiculopathy, lumbosacral region Problem 07/22/2020 12:00:00 AM EST eCW1 ([facility]) I10 [id number] Essential hypertension Problem 07/12/2020 12 :00:00 AM EST eCW1 ([facility]) M46.98 [id number] Inflammatory spondylopathy of sacrococcyg eal region Problem 05/30/2020 12:00:00 AM EST eCW1 ([facility]) K21.9 [id number] Gastroesophageal ref lux disease, unspecified whether esophagitis present Problem 05/16/2020 12:00:00 AM EST eCW1 ([facility]) E66.09 [id number] Other obesity due to excess calories Prob alexander 04/18/2020 12:00:00 AM EDT eCW1 ([facility]) Surgeries/Procedures Procedure Description Date Indications Data Source(s) Injection, midazolam hydrochloride, per 1 mg 12:00:00 AM EDT eCW1 ([facility]) Injection, fentanyl citrate, 0.1 mg 02/14/2021 12:00:0 0 AM EDT eCW1 ([facility]) Medication: Pain Oxycodone HCL Tab 10mg Orally 021 12:00:00 AM EDT eCW1 ([facility]) Oxygen at 2 liters per nasal cannula 09/15/2020 12:00: 00 AM EST eCW1 ([facility]) Injection, midazolam hydrochloride, per 1 mg 1 12:00:00 AM EST eCW1 ([facility]) Injection, fentanyl citrate, 0.1 mg 09/15/2020 12:00:0 0 AM EST eCW1 ([facility]) Pain Procedure Log 08/09/2020 12:00:00 AM EST eCW1 ([facility]) Injection, midazolam hydrochloride, per 1 mg 1 12:00:00 AM EST eCW1 ([facility]) IV Lactated Ringer's at KVO 07/26/2020 12:00:00 AM EST eCW1 ([facility]) Injection, fentanyl citrate, 0.1 mg 07/26/2020 12:00:0 0 AM EST eCW1 ([facility]) ECG ROUTINE ECG W/LEAST 12 LDS W/I&R 07/12/2020 12:00: 00 AM EST eCW1 ([facility]) Pain Procedure Log 07/05/2020 12:00:00 AM EST eCW1 ([facility]) IV Lactated Ringer's at KVO 06/13/2020 12:00:00 AM EST eCW1 ([facility]) Injection, midazolam hydrochloride, per 1 mg 0 12:00:00 AM EST eCW1 ([facility]) Injection, fentanyl citrate, 0.1 mg 06/13/2020 12:00:0 0 AM EST eCW1 ([facility]) Pain Procedure Log 05/17/2020 12:00:00 AM EST eCW1 ([facility]) Oxygen at 2 liters per nasal cannula 04/28/2020 12:00: 00 AM EDT eCW1 ([facility]) Injection, midazolam hydrochloride, per 1 mg 0 12:00:00 AM EDT eCW1 ([facility]) Injection, fentanyl citrate, 0.1 mg 04/28/2020 12:00:0 0 AM EDT eCW1 ([facility]) Results ID Date Data Source [id number] 05/31/2021 11:55:00 AM EST [facility] Name Value Range Interpretation Code Description Data Fany rce(s) Supporting Document(s) SARS-CoV-2 (COVID-19) RNA [Presence] in Respiratory specimen by JOSE ALEJANDRO with probe detection Not Detected [facility] This lab was ordered by [facility] and reported by [employer] ID Date Data Source [id number] 02/18/2021 06:07:00 PM EDT [facility] 1 OrderSheet [facility] Emergency Department [address] [place] [address] Phone #: ext- [phone] 02/18/2021 18:04 Patient: IVANA LAI Sex: F : 1980 Age: 40yWEIGHT:82.1 kg (S) HEIGHT:67 inches (S) BMI:28.4ALLERGIES: GabapentinCHIEF COMPLAINT: back pain, chronic back painDIAGNOSIS: O/E - muscle tone spasticLAB ORDERSOrder Description Priority Entered Acknowledged InitialedDIAGNOSTIC STUDY ORDERSOrder Description Priority Entered Acknowledged InitialedMEDICATION/IV/DRIP/FLUID ORDERSOrder Description Priority Entered Acknowledged InitialedToradol IM 30 mg 18:48 02/18/2021 18:55 Luis M(NOW) Juliet Bradley RN ;Valium IM 5 mg 18:48 02/18/2021 18:57 Luis M(NOW) Juliet Bradley RN ;GENERAL ORDERSOrder Description Priority Entered Acknowledged Initialed[Electronically signed by Luis M Lynne RN (19:47 02/18/2021)][Electronically signed by Juliet Bradley (01:26 02/19/2021)][Electronically locked by Luis M Lynne RN (19:47 02/18/2021)] Name Value Range Interpretation Code Description Data Fany rce(s) Supporting Document(s) ID Date Data Source [id number] 02/18/2021 06:07:00 PM EDT [facility] 1 Medication Reconciliation Report [facility] Emergency Department [address] [place] [address] Phone #: ext- [phone] 02/18/2021 18:04 Patient: IVANA LAI Sex: F : 1980 Age: 40yWeight: 82.1 kgHeight/Length: 67 in.BMI: 28.4ALLERGIES: GabapentinThe patient's Home Medications are listed below:CONTINUE TAKING THE FOLLOWING MEDICATIONS: Carisoprodol Oral (350 mg) 1 tablet, q8h, prn hydroCHLOROthiazide Oral (12.5 mg) 1 tablet, daily HYDROcodone-Acetaminophen Oral (10-325 mg) 1 tablet, 4x a day Losartan Potassium Oral (25 mg) 1 tablet, daily Pantoprazole Sodium Oral (20 mg) 1 tablet, daily Phentermine HCl Oral (37.5 mg) 1 capsule, dailyThe source(s) of the original Home Medication information:Not obtained.The following Medications were given to the patient in the Emergency Department:Toradol [IM] IM 30 mg, administered: 18:55 02/18/2021Valium [IM] IM 5 mg, administered: 18:55 02/18/2021The following Medications were prescribed to the patient:None. Name Value Range Interpretation Code Description Data Fany rce(s) Supporting Document(s) ID Date Data Source [id number] 02/18/2021 06:07:00 PM EDT [place] [address] Medication Administration Record [facility] Emergency Department [address] [place] [address] Phone #: ext- [phone] 02/18/2021 18:04 Patient: IVANA LAI Sex: F : 1980 Age: 40yWeight: 82.1 kgHeight/Length: 67 inBMI: 28.4ALLERGIES: Gabapentin Date/Time Medication Administered Medication OrderedGiven TORADOL [IM] (KETOROLAC Toradol IM 30 mg (NOW)18:55 02/18/2021 TROMETHAMINE)Luis M Lynne RN Dose: 30 mg IMGiven VALIUM [IM] (DIAZEPAM) Valium IM 5 mg (NOW)18:55 02/18/2021 Dose: 5 mg Darwin Lynne RN Name Value Range Interpretation Code Description Data Fany rce(s) Supporting Document(s) ID Date Data Source [id number] 02/18/2021 06:07:00 PM EDT [facility] 1 General Instructions [facility] Emergency Department [address] [place] [address] Phone #: ext- [phone] 02/18/2021 18:04 Patient: IVANA LAI Sex: F : 1980 Age: 40yUpper back spasm.INSTRUCTIONS(moist heat on the upper back. massage your upper back to loosen the muscle spasm. take the somaas well as the hydrocodone prescribed by your doctor. you can also take motrin to decreased theinflammation).Your Current Medications: Your current home medications have been reviewed.CONTINUE TAKING THE FOLLOWING MEDICATIONS:Carisoprodol Oral : Tablet 350 mg, 1 tablet q8h, prn.hydroCHLOROthiazide Oral : Tablet 12.5 mg, 1 tablet daily.HYDROcodone-Ac etaminophen Oral : Tablet 10-325 mg, 1 tablet 4x a day.Losartan Potassium Oral : Tablet 25 mg, 1 tablet daily.Pantoprazole Sodium Oral : Tablet Delayed Release 20 mg, 1 tablet daily.Phentermine HCl Oral : Capsule 37.5 mg, 1 capsule daily.Follow-up:Follow up with your healthcare provider in three days if not better. Reason for referral: evaluation.Summary of care provided to patient via paper. ADDITIONAL INFORMATIONMuscle SpasmA muscle spasm is a sudden tightening of the muscle you can't control. This may be caused by strain,overworking the muscle, or injury. It can also be caused by dehydration, electrolyte imbalance,diabetes, alcohol use, and certain medicines. If it goes on long enough the muscle spasm causespain. Common areas for muscle spasm are the legs, neck, and back.Home care Heat, massage, and stretching will help relax muscle spasm. When the spasm is in your arm or leg, stretch the muscle passively. To do this, have someone bend or straighten the joint above or below the muscle until you feel the stretch on the sore muscle. You can stretch the muscle actively by moving the affected body part. This 2 General Instructions [facility] Emergency Department [address] [place], [place] [id number] Phone #: [phone] 02/18/2021 18:04 Patient: IVANA LAI Sex: F : 1980 Age: 40y will stretch the muscle that is in spasm. For example, if the spasm is in your calf, bend the ankle so your toes point upward toward your knee. This will stretch your calf muscle. You may use cxuv-evr-oukvtta pain medicine to control pain, unless another medicine was prescribed. If you have chronic liver or kidney disease or ever had a stomach ulcer or gastrointestinal bleeding, talk with your healthcare provider before using these medicines.Follow-up careFollow up with your healthcare provider, or as advised.When to seek medical adviceCall your healthcare provider right away if any of the following occur: Fingers or toes become swollen, cold, blue, numb, or tingly You develop weakness in the affected arm or leg Pain increases and is not controlled by the above measures [id number] [employer]. [address] [place] [address]. All rights reserved. This information is not intended as asubstitute for professional medical care. Always follow your healthcare professional's instructions.General Neck and Back Pain 3 General Instructions [facility] Emergency Department [address] [place] [address] Phone #: ext- [phone] 02/18/2021 18:04 Patient: IVANA LAI Sex: F : 1980 Age: 40yBoth neck and back pain are usually caused by injury to the muscles or ligaments of the spine.Sometimes the disks that separate each bone of the spine may cause pain by pressing on a nearbynerve. Back and neck pain may appear after a sudden twisting or bending force (such as in a caraccident), or sometimes after a simple awkward movement. In either case, muscle spasm is oftenpresent and adds to the pain.Acute neck and back pain usually gets better in 1 to 2 weeks. Pain related to disk disease, arthritis inthe spinal joints, or narrowing of the spinal canal (spinal stenosis) can become chronic and last formonths or years.Back and neck pain are common problems. Most people feel better in 1 or 2 weeks, and most of therest in 1 to 2 months. Most people can remain active.People have and describe pain differently. Pain can be sharp, stabbing, shooting, aching, cramping, or burning Movement, standing, bending, lifting, sitting, or walking may worsen the pain 4 General Instructions [facility] Emergency Department [address] [place] [address] Phone #: ext- [phone] 02/18/2021 18:04 Patient: IVANA LAI Sex: F : 1980 Age: 40y Pain can be limited to one spot or area, or it can be more generalized Pain can spread upward, downward, to the front, or go down your arms or legs Muscle spasm may occur.Most of the time mechanical problems with the muscles or spine cause the pain. It's usually causedby an injury, whether known or not, to the muscles or ligaments. Pain without an injury is notcommon. But it can sometimes be caused by a health problem such as kidney stones or an infection.Pain is usually related to physical activity such as sports, exercise, work, or normal activity.Sometimes it can occur without an identifiable cause. This can happen simply by stretching or movingwrong, without noting pain at the time. Other causes include: Overexertion, lifting, pushing, pulling incorrectly or too aggressively. Sudden twisting, bending or stretching from an accident (car or fall), or accidental movement. Poor posture Poor conditioning, lack of regular exercise Spinal disc disease or arthritis Stress , or illness like appendicitis, bladder or kidney infection, pelvic infectionsHome care For neck pain: Use a comfortable pillow that supports the head and keeps the spine in a neutral position. The position of the head should not be tilted forward or backward. When in bed, try to find a position of comfort. A firm mattress is best. Try lying flat on your back with pillows under your knees. You can also try lying on your side with your knees bent up towards your chest and a pillow between your knees. At first, don't try to stretch out the sore spots. If there is a strain, it's not like the good soreness you get after exercising without an injury. In this case, stretching may make it worse. Don't sit for long periods, as in long car rides or other travel. This puts more stress on the lower back than standing or walking. During the first 24 to 72 hours after an injury, apply an ice pack to the painful area for 20 minutes and then remove it for 20 minutes over a period of 60 to 90 minutes or several times a day. You can alternate ice and heat therapies. Talk with your healthcare provider about the best treatment for your back or neck pain. As a safety precaution, don't use a heating pad at 5 [facility] Emergency Department [address] [place] [address] Phone #: ext- [phone] 02/18/2021 18:04 Patient: IVANA LAI Sex: F : 1980 Age: 40y bedtime. Sleeping with a heating pad can lead to skin crockett or tissue damage. Therapeutic massage can help relax the back and neck muscles without stretching them. Be aware of safe lifting methods and don't lift anything over 15 pounds until all the pain is gone.MedicinesTalk to your healthcare provider before using medicine, especially if you have other medical problemsor are taking other medicines. You may use jrce-kvg-kfhgxzu medicine to control pain, unless another pain medicine was prescribed. Talk with your doctor first if you have chronic conditions like diabetes, liver or kidney disease, stomach ulcers, gastrointestinal bleeding, or are taking blood thinner medicines. Be careful if you are given pain medicines, narcotics, or medicine for muscle spasm. They can cause drowsiness, and can affect your coordination, reflexes, and judgment. Don't drive or operate heavy machinery.Follow-up careFollow up with your healthcare provider, or as advised. You may need physical therapy or furthertests.If X-rays were taken, you will be told of any new findings that may affect your care.Call [phone] if any of th e following occur: Trouble breathing Confusion Very drowsy or trouble awakening Fainting or loss of consciousness Rapid or very slow heart rate Loss of bowel or bladder controlWhen to seek medical adviceCall your healthcare provider right away if any of these occur: 6 General Instructions [facility] Emergency Department [address] [place] [address] Phone #: ext- [phone] 02/18/2021 18:04 Patient: IVANA LAI Sex: F : 1980 Age: 40y Pain becomes worse or spreads into your arms or legs Weakness, numbness or pain in one or both arms or legs Numbness in the groin area Trouble walking Fever of 100.4F (38C) or higher, or as directed by your healthcare provider [id number] [employer]. [address] [place] [address], [place] [address]. All rights reserved. This information is not intended as asubstitute for professional medical care. Always follow your healthcare professional's instructions. You have been given the following additional information: Muscle Spasm Back and Neck Pain, General(Electronically signed by Juliet Bradley 02/19/2021 01:26) Name Value Range Interpretation Code Description Data Fany rce(s) Supporting Document(s) ID Date Data Source [id number] 02/18/2021 06:07:00 PM EDT [facility] 1 Clinical Report - Nurses [facility] Emergency Department [address] [place] [address] Phone #: ext- [phone] 02/18/2021 18:04 Patient: IVANA LAI Sex: F : 1980 Age: 40yTRIAGEArrived by private vehicle. Historian: patient.Acuity: LEVEL 4.Chief Complaint: BACK PAIN.Onset. (3 days ago). ( pt states she has had back issues since she was 16 years old, she has beendealing with pain clinic in [place] and was being set up to have a dorsal column stimulator implantedbut her insurance has changed and she is now waiting, pain has increased much over the past 3 days).Treatment [employer]:(1300 hydrocodone 10/325 mg).SEPSIS SCREEN: SIRS SCREEN NEGATIVE. SEPSIS SCREEN NEGATIVE. No suspected or confirmedsigns of infection present.LUL COMA SCORE: 15- eyes open- spontaneous (4); best verbal response- oriented (5); bestmotor response- obeys commands (6). --18:37 02/18/21 Luis M Lynne RN18:28 02/18/21. BP: 138/98. MAP: 111. HR: 101. RR: 18. O2 saturation: 100%. Temp: 97.6 F. Pain levelnow: 04/16. --18:37 02/18/21 Luis M Lynne RN.Weight: 82.1 kg stated. Height/Length: 67 inches Per Patient. BMI: 28.4. --18:27 02/18/21 Luis M Lynne RN.MedicationsHYDROcodone-Acetaminophen Oral (Tablet 10-325 mg) 1 tablet, 4x a day. --18:31 02/18/21 ROEL Penn Pantopra zole Sodium Oral (Tablet Delayed Release 20 mg) 1 tablet, daily. --18:32 02/18/21 ROEL Penn hydroCHLOROthiazide Oral (Tablet 12.5 mg) 1 tablet, daily. --18:32 02/18/21 Luis M Lynne RN Losartan Potassium Oral (Tablet 25 mg) 1 tablet, daily. --18:32 02/18/21 Luis M Lynne RN Phentermine HCl Oral (Capsule 37.5 mg) 1 capsule, daily. --18:33 02/18/21 Luis M Lynne RN Carisoprodol Oral (Tablet 350 mg) 1 tablet, q8h as needed. --18:33 02/18/21 Luis M Lynne RN.AllergiesGabapentin. --18:34 02/18/21 Luis M Lynne RN.PROBLEMS:Gastroesophageal Reflux Disease. 2 Clinical Report - Nurses [facility] Emergency Department [address] [place] [address] Phone #: ext- [phone] 02/18/2021 18:04 Patient: IVANA LAI Sex: F : 1980 Age: 40y Back Pain. Hypertension. --18:35 02/18/21 Luis M Lynne RN. ADDITIONAL SURGERIES: Dental Surgery. Tubal Ligation. --18:35 02/18/21 Luis M Lynne RN. History PAST MEDICAL HX: Tetanus status: up-to-date. Immunizations: up-to-date. Has had a tubal ligation. SOCIAL HX: Former smoker, end date 2016. No alcohol use or drug use. She was offered HIV testing but declined and hepatitis C testing but declined. She has not traveled outside the [place] Infectious disease exposure: No infectious disease exposure. The patient was not exposed to Coronavirus. SELF HARM ASSESSMENT: Self harm assessment was performed. The patient answered "no" to the question(s) "Have you recently felt down, depressed, or hopeless?", &q uot;Do you have thoughts of harming or killing yourself?", "Do you have a plan for harming or killing yourself?", "Have you recently had thoughts about harming or killing others?", "Do you have any dangerous items in your possession?", "Have you noticed less interest or pleasure in doing things?", "Are you here because you tried to hurt yourself?" and "Have you ever tried to hurt yourself before today?". ABUSE ASSESSMENT: No report of abuse. NUTRITIONAL RISK ASSESSMENT: The nutritional risk assessment revealed no deficiencies. FUNCTIONAL ASSESSMENT: Functional assessment: no impairments noted. LEARNING NEEDS ASSESSMENT: The learning needs assessment revealed no barriers. FALL RISK ASSESSMENT: Fall risk assessment completed. No risk factors identified. SKIN INTEGRITY ASSESSMENT: Skin integrity risk assessment completed. No skin integrity risk identified. --18:37 02/18/21 Luis M Lynne RN. Interventions Identification band on patient. To treatment room. --18:37 02/18/21 Luis M Lynne RN.PHYSICAL ASSESSMENTAmbulatory to room.GENERAL / NEURO / PSYCH: Alert. Oriented X 4. Appears in pain.RESPIRATORY: Respirations not labored. Chest nont rickey. Breath sounds within normal limits.CVS: Normal heart rate and rhythm. Capillary refill less than 2 seconds.GI / : Abdomen soft and nontender. Bowel sounds within normal limits.EXTREMITIES: Sensation intact in extremities. ROM of extremities within normal limits.BACK: Vertebral point tenderness over the thoracic spine. --18:40 02/18/21 Luis M Lynne RN. 3 Clinical Report - Nurses [facility] Emergency Department [address] [place] [address] Phone #: ext- [phone] 02/18/2021 18:04 Patient: IVANA LAI Sex: F : 1980 Age: 40yNURSING PROGRESS NOTESPatient gowned. Head of bed elevated. Reassurance given. Call light placed in reach. Bed placed inlowest position. Brakes of bed on. Patient ready for evaluation- ED physician notified. --18:41 02/18/21Luis M Lynne RN 18:55 02/18/2021 Toradol (Ketorolac Tromethamine) IM 30 mg given. Given in the right deltoid. Allergies verified and confirmed 5 rights. Information reviewed with patient including reason for taking this medication. Verbalizes understanding. --18:55 02/18/21 Luis M Lynne RN 18:55 02/18/2021 Valium (diazePAM) IM 5 mg given. Given in the right deltoid. Allergies verified and confirmed 5 rights. Information reviewed with patient including reason for taking this medication and sedative warning. Verbalizes understanding. --18:57 02/18/21 Luis M Lynne RN.DISPOSITION / DISCHARGE 19:41 02/18/21. BP: 137/81. MAP: 99. HR: 97. RR: 18. O2 saturation: 98%. Temp: 98.9 F. Pain level now: 10/15. --19:41 02/18/21 Tigre Ryan Condition at departure: improved and stable. Discharge instructions provided and reviewed with the patient. Patient verbalized understanding. Written instructions provided in Swedish. The patient was discharged by the physician. She was discharged home and accompanied by spouse. She left ambulatory and via private vehicle. Spouse driving. --19:47 02/18/21 Luis M Lynne RN.Locked/Released at 02/18/2021 19:47 by Luis M Lynne RN Name Value Range Interpretation Code Description Data Fany rce(s) Supporting Document(s) ID Date Data Source [id number] 02/18/2021 06:07:00 PM EDT [facility] 1 Clinical Report - Physicians/Mid Levels [facility] Emergency Department [address] [place] [address] Phone #: ext- [phone] 02/18/2021 18:04 [id number] Sex[facility] F : 1980 Age: 40y Time Seen: 18:31 02/18/2021; initial patient contact, initial documentation. Arrived- By private vehicle. Historian- patient. Disposition decision: 19:38 02/18/2021.HISTORY OF PRESENT ILLNESS Chief Complaint: BACK PAIN and CHRONIC BACK PAIN. Onset- 3 days ago and it is still present and worsening. It was gradual in onset and has been constant. It is described as being severe. The quality is noted to be aching. No bladder dysfunction, bowel dysfunction, sensory loss or motor loss. Additional history - Patient states that she had intervertebral injection on L4:l5 5 days ago and she started having mild upper back pain when she woke up from the sedation. she went to work yesterday and today and the pain became severe on the right para thoracic area. she did not have pain on the LS spine area.she took her hydrocodone whihc has not helped. Patient denies an injury. No injury to the head or neck.REVIEW OF SYSTEMSNo fever, chills, eye irritation, difficulty with urination or urinary frequency. No skin rash, headache,depression, sore throat or cough. No difficulty breathing, chest pain, abdominal pain, nausea or vomiting.No diarrhea. All other systems reviewed and are negative.PAST HISTORYSee nurses notes. The patient has had prior back pain. Has had intervertebral disc disease. Problems: Gastroesophageal Reflux Disease. Hypertension. Additional Surgeries: Dental Surgery. Tubal Ligation. Medications: Carisoprodol Oral (Tablet 350 mg) 1 tablet, q8h as needed. Phentermine HCl Oral (Capsule 37.5 mg) 1 capsule, daily. Losartan Potassium Oral (Tablet 25 mg) 1 tablet, daily. hydroCHLOROthiazide Oral (Tablet 12.5 mg) 1 tablet, daily. Pantoprazole Sodium Oral (Tablet Delayed Release 20 mg) 1 tablet, daily. HYDROcodone-Acetaminophen Oral (Tablet 10-325 mg) 1 tablet, 4x a day. Allergies: Gabapentin.SOCIAL HISTORY 2 Clinical Report - Physicians/Mid Levels [facility] Emergency Department [address] [place] [address] Phone #: ext- [phone] 02/18/2021 18:04 [id number] Sex: F : 1980 Age: 40y Former smoker, end date 2016. No alcohol use or drug use.ADDITIONAL NOTESThe nursing notes have been reviewed.PHYSICAL EXAMVital Signs: 02/18/2021 18:28 BP: 138/98. MAP: 111. HR: 101. RR: 18. O2 saturation: 100%. Temp: 97.6F. Pain level now: 04/16. Have been reviewed. Oxygen saturation normal.Appearance: Alert. No acute distress.Neck: Normal inspection. Neck nontender.CVS: Heart sounds normal. Pulses normal.Respiratory: No respiratory distress. Painless inspiration. Breath sounds normal.Abdomen: No visible injury. Soft and nontender. Bowel sounds normal. No organomegaly. No mass.Back: Moderate muscle spasm of the right posterior back. Moderate soft tissue tenderness in the rightlower thoracic area. No vertebral point tenderness.Skin: Skin warm and dry. Normal skin color. No rash. Normal skin turgor.Extremities: Extremities exhibit normal ROM. Extremities nontender.Neuro: Oriented X 3. Mood/affect normal. No motor deficit. No sensory deficit. Straight leg raising:positive on the right at 30 degrees and positive on the left at 30 degrees. Reflexes normal.PROGRESS AND PROCE DURESCourse of Care: 19:37 02/18/21. Patient given toradol and valium . she feels a lot better and is able tomove better, advised moist heat or hot showers and to take motrin and her soma. Patient and son counseled in person regarding the patient's stable condition, test results, diagnosis and need for follow-up. Patient and son agrees with plan of care. 19:38. Disposition: Discharged home in good and improved condition (19:38). Condition: good and stable. Discharge decision based on the following: patient's condition is improved; patient is ambulatory; patient's exam is improved; stable condition on repeat evaluation; improving condition on repeat evaluation; social support is adequate; transportation is available; follow-up is available; clinical impression is consistent with outpatient treatment.CLINICAL IMPRESSION Upper back spasm.INSTRUCTIONS (moist heat on the upper back. massage your upper back to loosen the muscle spasm. take the soma as well as the hydrocodone prescribed by your doctor. you can also take motrin to decreased the inflammation). 3 Clinical Report - Physicians/Mid Levels [facility] Emergency Department [address] [place] [address] Phone #: ext- [phone] 02/18/2021 18:04 Patient: IVANA LAI Sex: F : 1980 Age: 40y Your Current Medications: Your current home medications have been reviewed. CONTINUE TAKING THE FOLLOWING MEDICATIONS: Carisoprodol Oral : Tablet 350 mg, 1 tablet q8h, prn. hydroCHLOROthiazide Oral : Tablet 12.5 mg, 1 tablet daily. HYDROcodone- Acetaminophen Oral : Tablet 10-325 mg, 1 tablet 4x a day. Losartan Potassium Oral : Tablet 25 mg, 1 tablet daily. Pantoprazole Sodium Oral : Tablet Delayed Release 20 mg, 1 tablet daily. Phentermine HCl Oral : Capsule 37.5 mg, 1 capsule daily. Follow-up: Follow up with your healthcare provider in three days if not better. Reason for referral: evaluation. Summary of care provided to patient via paper.(Electronically signed by Juliet Bradley 02/19/2021 01:26) Name Value Range Interpretation Code Description Data Fany rce(s) Supporting Document(s) ID Date Data Source [id number] 11/19/2020 07:01:04 AM EDT [facility], PCName: Ivana LaiDOB: 1980Provider: Leni Viera: 11/17/2020 Reason For VisitTasolo Lai is here today for lumbar spine. Ivana had her first Covid vaccine on 09/29/20. Ivana had her second Covid vaccine on 10/27/20. Ivana Lai is here for evaluation of MRI results. mri lsp 11/07/20 imported. Other DOI/DOO: no specific injury. Patient states their pain is a 4 out of 10. Chronic w/o injury with gradual worsening since onset. The patient has had a course of physical therapy for greater than 4 weeks. The patient has had a course of NSAIDs for greater than 4 weeks. NSAIDs usage has not been effective. The patient's pain is managed by karoline. (drafter assistant Prateek Lipscomb). 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 History of Present IllnessThis is a 40-year-old female who is here for reevaluation of the lower back. She recently had a lumbar MRI scan. The pain radiates from the lower back into the buttocks, hamstrings, posterior calves and feet. She does get temporary relief with transforaminal injections in the lumbar spine. She would like to review her MRI scan today. Pain worsens with extensive standing, bending, twisting, etc. Facet blocks have not helped in the past. She has never had SI joint injections to her knowledge. Results/Data OtherL[facility] shows degenerative disc disease L4-S1. Small unchanged left foraminal disc bulge L4-5. Central disc protrusion L5-S1. Mild facet hypertrophy L3-S1. No significant stenosis. PlanPlan, Assessment and Recommendation(s) Assessment: Disc bulge L4-S1, degenerative disc disease L3-S1. Plan: I do not recommend surgery. She has no significant stenosis. I think it is reasonable to consider bilateral SI joint injections for both diagnostic and therapeutic purposes. If those are not helpful, she may be a good candidate for spinal cord stimulator trial. Otherwise unfortunately I have nothing further to offer. Follow-up with u s as needed only. Work / School NoteThe patient is working at this time. This document was dictated and electronically signed using [employer] Speaking software. A reasonable attempt at proof reading has been made to minimize errors. Please call with any questions. Signatures Electronically signed by : Mara Rolle; Nov 17 2020 3:17PM EST (Author) Electronically signed by : Timothy Gonzales M.D.; Nov 19 2020 7:01AM EST Name Value Range Interpretation Code Description Data Fany rce(s) Supporting Document(s) ID Date Data Source [id number] 10/07/2020 08:45:29 AM EDT [facility], PCName: Ivana AstorgaB: 1980Provider: Adina Gonzales: 10/07/2020 Reason For VisitTasolo Lai is here today for lumbar spine. Ivana had her first Covid vaccine on 09/29/20. Ivana is scheduled to have her second Covid vaccine on 10/27/20. Ivana Lai is a new patient. no films. Other DOI/DOO: no specific injury. Patient states their pain is a 4 out of 10. Chronic w/o injury with gradual worsening since onset. The patient has had a course of physical therapy for greater than 4 weeks. The patient has had a course of NSAIDs for greater than 4 weeks. NSAIDs usage has not been effective. The patient's pain is managed by karoline. (drafter assistant Prateek Lipscomb). 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 Plan X-Ray I Lumbosacral - 2 views (XRays were ordered, obtained and interpreted today inthe office. Indication: pain/dysfunction.); Status:Complete; Done: 07Oct2020 Perform:SOS14 (General); Due:[id number]; Last Updated By:Lucretia Rodriguez; 10/07/2020 8:26:22 AM;Ordered; For:Lower back pain; Ordered By:Timothy Gonzales; Chief complaint patient states painPleasant female. History of pain chronically since the age of 16. She states that her pain has progressed over the past 2 years. Pain level is moderate to severe and a daily basis. Reports leg pain greater than back pain. Left leg is worse than the right. Pain radiates from left buttock into the posterior left thigh down to the left calf and the bottom of left foot. It is worse with standing. It is better with injections. She has had several injections. She has had physical therapy w ithout significant improvement. The pain is aching and nerve like. She has been evaluated by rheumatology and neurology as well as pain management. She states that no one knows why she is having such persistent pain. His nerve conduction studies were determined to be normal.Examination of the lumbar spine reveals full flexion, extension, lateral bending bilaterally, and rotation bilaterally. Lumbar extension elicits pain. The patient demonstrates a normal gait. There is no posterior tenderness in the lower back. Motor strength is 5 out of 5 from L2- S1 and sensation is intact from L2-S1 bilaterally. Reflexes are 2+ and at the patellar tendon and at the Achilles bilaterally. There is no hip pain with internal or external rotation.September 09, 2020. Dr. Murphy records reviewed. Chronic low back pain, primarily left leg pain. Pain is burning, constant and severe. He has had previous transforaminal epidurals in the past. Records are from [facility]. She had a left L4-5 and L5-S1 transforaminal injection most recently, referred to orthopedics for evaluation.Notes reviewed from Dr. Edwards. [facility]. August 31, 2020. Urgent evaluation for left leg pain. History of urinary stress incontinence.Lumbar x-rays reviewed from April 01, 2018. Outside facility. Normal appearing lumbar spineMRI lumbar spine reviewed from August 2018. Small central disc prolapse without significant neurologic compressionX-rays ordered, obtained, and interpreted by myself from today. Lumbar spine x-rays AP and lateral . L5-S1 spot view included. No change compared to previous x-ray. No significant degeneration of the spine. Alignment appears normal.Assessmentlumbar radiculopathytype: radiculopathylocation: lumbaretiology: degenerativeplan:1. Medication: anti- inflammatories as needed.2. Imaging: MRI lumbar spine to identify neurologic pathology3. Injection: Deferred until after imaging 4. Activity:as tolerated. 5. Referral: Consider [place] [facility] injection after MRI6. Surgical management deferred at this point followup after MRIWe discussed that her current MRI shows a small bulge at L5-S1 however not enough to indicate surgery. We will update MRI. If the disc bulge has progressed and there is significant stenosis then surgery may be reasonable. Otherwise, she will follow up with pain management if the MRI is relatively unchanged Signatures Electronically signed by : Timothy Gonzales M.D.; Oct 07 2020 8:45AM EST (Author) Name Value Range Interpretation Code Description Data Fany rce(s) Supporting Document(s) ID Date Data Source [id number] 09/10/2020 11:00:00 AM EST [facility] Name Value Range Interpretation Code Description Data Fany rce(s) Supporting Document(s) SARS coronavirus 2 RNA Not Detected [facility] This lab was ordered by [facility] and reported by [facility]. ID Date Data Source [id number] 07/21/2020 12:00:00 PM EST [facility] Name Value Range Interpretation Code Description Data Fany rce(s) Supporting Document(s) SARS coronavirus 2 RNA Not Detected [facility] This lab was ordered by [facility] and reported by [facility]. ID Date Data Source [id number] 06/08/2020 11:15:00 AM EST [facility] Name Value Range Interpretation Code Description Data Fany rce(s) Supporting Document(s) [facility] and reported by [facility]. ID Date Data Source [id number] 04/23/2020 09:00:00 AM EDT [facility] Name Value Range Interpretation Code Description Data Fany rce(s) Supporting Document(s) SARS coronavirus 2 RNA [facility] This lab was ordered by [facility] and reported by [facility]. Procedure Social History Code Duration Value Status Description Data Source(s ) Smoking 05/23/2021 12:00:00 AM EST Former Smoker completed Former Smoker eCW1 ([facility]) Smoking 05/23/2021 12:00:00 AM EST Former Smoker completed Former Smoker eCW1 ([facility]) Smoking 05/11/2021 12:00:00 AM EDT Former Smoker completed Former Smoker eCW1 ([facility]) Smoking 05/11/2021 12:00:00 AM EDT Former Smoker completed Former Smoker eCW1 ([facility]) Smoking 04/24/2021 12:00:00 AM EDT Former Smoker completed Former Smoker eCW1 ([facility]) Smoking 03/31/2021 12:00:00 AM EDT Former Smoker completed Former Smoker eCW1 ([facility]) Smoking 03/31/2021 12:00:00 AM EDT Former Smoker completed Former Smoker eCW1 ([facility]) Smoking 03/24/2021 12:00:00 AM EDT Former Smoker completed Former Smoker eCW1 ([facility]) Smoking 03/24/2021 12:00:00 AM EDT Former Smoker completed Former Smoker eCW1 ([facility]) Smoking 02/15/2021 12:00:00 AM EDT Former Smoker completed Former Smoker eCW1 ([facility]) Smoking 02/15/2021 12:00:00 AM EDT Former Smoker completed Former Smoker eCW1 ([facility]) Smoking 02/15/2021 12:00:00 AM EDT Former Smoker completed Former Smoker eCW1 ([facility]) Smoking 02/15/2021 12:00:00 AM EDT Former Smoker completed Former Smoker eCW1 ([facility]) Smoking 02/15/2021 12:00:00 AM EDT Former Smoker completed Former Smoker eCW1 ([facility]) Smoking 02/15/2021 12:00:00 AM EDT Former Smoker completed Former Smoker eCW1 ([facility]) Smoking 02/03/2021 12:00:00 AM EDT Former Smoker completed Former Smoker eCW1 ([facility]) Smoking 01/31/2021 12:00:00 AM EDT Former Smoker completed Former Smoker eCW1 ([facility]) Smoking 01/20/2021 12:00:00 AM EDT Former Smoker completed Former Smoker eCW1 ([facility]) Smoking 01/20/2021 12:00:00 AM EDT Former Smoker completed Former Smoker eCW1 ([facility]) Smoking 01/20/2021 12:00:00 AM EDT Former Smoker completed Former Smoker eCW1 ([facility]) Smoking 12/29/2020 12:00:00 AM EDT Former Smoker completed Former Smoker eCW1 ([facility]) Smoking 12/29/2020 12:00:00 AM EDT Former Smoker completed Former Smoker eCW1 ([facility]) Smoking 12/29/2020 12:00:00 AM EDT Former Smoker completed Former Smoker eCW1 ([facility]) Smoking 12/23/2020 12:00:00 AM EDT Former Smoker completed Former Smoker eCW1 ([facility]) Smoking 12/23/2020 12:00:00 AM EDT Former Smoker completed Former Smoker eCW1 ([facility]) Smoking 12/09/2020 12:00:00 AM EDT Former Smoker completed Former Smoker eCW1 ([facility]) Smoking 11/17/2020 12:00:00 AM EDT Former Smoker completed Former Smoker eCW1 ([facility]) Smoking 11/17/2020 12:00:00 AM EDT Former Smoker completed Former Smoker eCW1 ([facility]) Smoking 11/17/2020 12:00:00 AM EDT Former Smoker completed Former Smoker eCW1 ([facility]) Smoking 11/08/2020 12:00:00 AM EDT Former Smoker completed Former Smoker eCW1 ([facility]) Smoking 11/08/2020 12:00:00 AM EDT Former Smoker completed Former Smoker eCW1 ([facility]) Smoking 10/19/2020 12:00:00 AM EDT Former Smoker completed Former Smoker eCW1 ([facility]) Smoking 10/19/2020 12:00:00 AM EDT Former Smoker completed Former Smoker eCW1 ([facility]) Smoking 10/19/2020 12:00:00 AM EDT Former Smoker completed Former Smoker eCW1 ([facility]) Smoking 09/29/2020 12:00:00 AM EDT Former Smoker completed Former Smoker eCW1 ([facility]) Smoking 09/29/2020 12:00:00 AM EDT Former Smoker completed Former Smoker eCW1 ([facility]) Smoking 09/29/2020 12:00:00 AM EDT Former Smoker completed Former Smoker eCW1 ([facility]) Smoking 09/29/2020 12:00:00 AM EDT Former Smoker completed Former Smoker eCW1 ([facility]) Smoking 09/15/2020 12:00:00 AM EST Former Smoker completed Former Smoker eCW1 ([facility]) Smoking 09/15/2020 12:00:00 AM EST Former Smoker completed Former Smoker eCW1 ([facility]) Smoking 09/15/2020 12:00:00 AM EST Former Smoker completed Former Smoker eCW1 ([facility]) Smoking 09/09/2020 12:00:00 AM EST Former Smoker completed Former Smoker eCW1 ([facility]) Smoking 08/31/2020 12:00:00 AM EST Former Smoker completed Former Smoker eCW1 ([facility]) Smoking 08/09/2020 12:00:00 AM EST Former Smoker completed Former Smoker eCW1 ([facility]) Smoking 07/25/2020 12:00:00 AM EST Former Smoker completed Former Smoker eCW1 ([facility]) Smoking 07/25/2020 12:00:00 AM EST Former Smoker completed Former Smoker eCW1 ([facility]) Smoking 07/25/2020 12:00:00 AM EST Former Smoker completed Former Smoker eCW1 ([facility]) Smoking 07/25/2020 12:00:00 AM EST Former Smoker completed Former Smoker eCW1 ([facility]) Smoking 07/22/2020 12:00:00 AM EST Former Smoker completed Former Smoker eCW1 ([facility]) Smoking 07/22/2020 12:00:00 AM EST Former Smoker completed Former Smoker eCW1 ([facility]) Smoking 07/12/2020 12:00:00 AM EST Former Smoker completed Former Smoker eCW1 ([facility]) Smoking 07/05/2020 12:00:00 AM EST Former Smoker completed Former Smoker eCW1 ([facility]) Smoking 07/05/2020 12:00:00 AM EST Former Smoker completed Former Smoker eCW1 ([facility]) Smoking 06/16/2020 12:00:00 AM EST Former Smoker completed Former Smoker eCW1 ([facility]) Smoking 06/16/2020 12:00:00 AM EST Former Smoker completed Former Smoker eCW1 ([facility]) Smoking 06/16/2020 12:00:00 AM EST Former Smoker completed Former Smoker eCW1 ([facility]) Smoking 06/16/2020 12:00:00 AM EST Former Smoker completed Former Smoker eCW1 ([facility]) Smoking 06/10/2020 12:00:00 AM EST Former Smoker completed Former Smoker eCW1 ([facility]) Smoking 06/10/2020 12:00:00 AM EST Former Smoker completed Former Smoker eCW1 ([facility]) Smoking 05/17/2020 12:00:00 AM EST Former Smoker completed Former Smoker eCW1 ([facility]) Smoking 05/17/2020 12:00:00 AM EST Former Smoker completed Former Smoker eCW1 ([facility]) Smoking 04/28/2020 12:00:00 AM EDT Former Smoker completed Former Smoker eCW1 ([facility]) Smoking 04/28/2020 12:00:00 AM EDT Former Smoker completed Former Smoker eCW1 ([facility]) Smoking 04/28/2020 12:00:00 AM EDT Former Smoker completed Former Smoker eCW1 ([facility]) Smoking 04/28/2020 12:00:00 AM EDT Former Smoker completed Former Smoker eCW1 ([facility]) Smoking 04/25/2020 12:00:00 AM EDT Former Smoker completed Former Smoker eCW1 ([facility]) Smoking 04/18/2020 12:00:00 AM EDT Former Smoker completed Former Smoker eCW1 ([facility]) Smoking 04/13/2020 12:00:00 AM EDT Former Smoker completed Former Smoker eCW1 ([facility]) Vital Signs ID Date Data Source UNK Name Value Range Interpretation Code Description Data Source(s) Body weight 196 [lb_av] 196 [lb_av] eCW1 (Count includes the [facility]) Body temperature 97 [degF] 97 [degF] eCW1 ([facility]) Systolic blood pressure 134 mm[Hg] 134 mm[Hg] e CW1 ([facility]) Body height 67 [in_i] 67 [in_i] eCW1 ([facility]) Diastolic blood pressure 80 mm[Hg] 80 mm[Hg] eCW1 ([facility]) Body mass index (BMI) [Ratio] 30.69 kg/m2 30.69 kg/m2 eCW1 ([facility]) Heart rate 90 /min 90 /min eCW1 ([facility]) Respiratory rate 18 /min 18 /min eCW1 ([facility]) Body mass index (BMI) [Ratio] 30.22 kg/m2 30.22 kg/m2 eCW1 ([facility]) Body weight 193.0 [lb_av] 193.0 [lb_av] eCW1 ([facility]) Body weight 87.54 kg 87.54 kg eCW1 ([facility]) Body height 67 [in_i] 67 [in_i] eCW1 ([facility]) Heart rate 95 /min 95 /min eCW1 ([facility]) Respiratory rate 18 /min 18 /min eCW1 ([facility]) Body temperature 96.8 [degF] 96.8 [degF] eCW1 ( [facility]) Systolic blood pressure 116 mm[Hg] 116 mm[Hg] e CW1 ([facility]) Diastolic blood pressure 71 mm[Hg] 71 mm[Hg] eCW1 ([facility]) Body weight 182 [lb_av] 182 [lb_av] eCW1 (Count includes the [facility]) Respiratory rate 18 /min 18 /min eCW1 ([facility]) Body temperature 96.7 [degF] 96.7 [degF] eCW1 ( [facility]) Body height 67 [in_i] 67 [in_i] eCW1 ([facility]) Body mass index (BMI) [Ratio] 28.50 kg/m2 28.50 kg/m2 eCW1 ([facility]) Heart rate 96 /min 96 /min eCW1 ([facility]) Systolic blood pressure 122 mm[Hg] 122 mm[Hg] e CW1 ([facility]) Diastolic blood pressure 80 mm[Hg] 80 mm[Hg] eCW1 ([facility]) Body weight 183.0 [lb_av] 183.0 [lb_av] eCW1 ([facility]) Body weight 83.01 kg 83.01 kg eCW1 ([facility]) Body height 67 [in_i] 67 [in_i] eCW1 ([facility]) Body mass index (BMI) [Ratio] 28.66 kg/m2 28.66 kg/m2 eCW1 ([facility]) Heart rate 100 /min 100 /min eCW1 ([facility]) Respiratory rate 18 /min 18 /min eCW1 ([facility]) Body temperature 98.1 [degF] 98.1 [degF] eCW1 ( [facility]) Systolic blood pressure 132 mm[Hg] 132 mm[Hg] e CW1 ([facility]) Diastolic blood pressure 81 mm[Hg] 81 mm[Hg] eCW1 ([facility]) Respiratory rate 18 /min 18 /min eCW1 ([facility]) Body temperature 97.3 [degF] 97.3 [degF] eCW1 ( [facility]) Systolic blood pressure 140 mm[Hg] 140 mm[Hg] e CW1 ([facility]) Diastolic blood pressure 80 mm[Hg] 80 mm[Hg] eCW1 ([facility]) Body weight 181 [lb_av] 181 [lb_av] eCW1 (Count includes the [facility]) Body height 67 [in_i] 67 [in_i] eCW1 ([facility]) Body mass index (BMI) [Ratio] 28.35 kg/m2 28.35 kg/m2 eCW1 ([facility]) Heart rate 106 /min 106 /min eCW1 ([facility]) Body weight 181.2 [lb_av] 181.2 [lb_av] eCW1 ([facility]) Respiratory rate 18 /min 18 /min eCW1 ([facility]) Body temperature 97.6 [degF] 97.6 [degF] eCW1 ( [facility]) Body weight 82.19 kg 82.19 kg eCW1 ([facility]) Systolic blood pressure 145 mm[Hg] 145 mm[Hg] e CW1 ([facility]) Diastolic blood pressure 75 mm[Hg] 75 mm[Hg] eCW1 ([facility]) Body height 67 [in_i] 67 [in_i] eCW1 ([facility]) Body mass index (BMI) [Ratio] 28.38 kg/m2 28.38 kg/m2 eCW1 ([facility]) Heart rate 73 /min 73 /min eCW1 ([facility]) Heart rate 96 /min 96 /min eCW1 ([facility]) Body weight 183 [lb_av] 183 [lb_av] eCW1 (Count includes the [facility]) Body height 67 [in_i] 67 [in_i] eCW1 ([facility]) Body mass index (BMI) [Ratio] 28.66 kg/m2 28.66 kg/m2 eCW1 ([facility]) Systolic blood pressure 118 mm[Hg] 118 mm[Hg] e CW1 ([facility]) Respiratory rate 18 /min 18 /min eCW1 ([facility]) Body temperature 96.2 [degF] 96.2 [degF] eCW1 ( [facility]) Diastolic blood pressure 76 mm[Hg] 76 mm[Hg] eCW1 ([facility]) Body weight 183.6 [lb_av] 183.6 [lb_av] eCW1 ([facility]) Body height 67 [in_i] 67 [in_i] eCW1 ([facility]) Body mass index (BMI) [Ratio] 28.75 kg/m2 28.75 kg/m2 eCW1 ([facility]) Heart rate 91 /min 91 /min eCW1 ([facility]) Respiratory rate 18 /min 18 /min eCW1 ([facility]) Body temperature 98.0 [degF] 98.0 [degF] eCW1 ( [facility]) Systolic blood pressure 127 mm[Hg] 127 mm[Hg] e CW1 ([facility]) Diastolic blood pressure 77 mm[Hg] 77 mm[Hg] eCW1 ([facility]) Body weight 182.8 [lb_av] 182.8 [lb_av] eCW1 ([facility]) Body height 67 [in_i] 67 [in_i] eCW1 ([facility]) Body mass index (BMI) [Ratio] 28.63 kg/m2 28.63 kg/m2 eCW1 ([facility]) Heart rate 101 /min 101 /min eCW1 ([facility]) Respiratory rate 18 /min 18 /min eCW1 ([facility]) Body temperature 97.2 [degF] 97.2 [degF] eCW1 ( [facility]) Systolic blood pressure 122 mm[Hg] 122 mm[Hg] e CW1 ([facility]) Diastolic blood pressure 86 mm[Hg] 86 mm[Hg] eCW1 ([facility]) Body weight 185.0 [lb_av] 185.0 [lb_av] eCW1 ([facility]) Body height 67 [in_i] 67 [in_i] eCW1 ([facility]) Body mass index (BMI) [Ratio] 28.97 kg/m2 28.97 kg/m2 eCW1 ([facility]) Heart rate 91 /min 91 /min eCW1 ([facility]) Respiratory rate 18 /min 18 /min eCW1 ([facility]) Body temperature 97.7 [degF] 97.7 [degF] eCW1 ( [facility]) Systolic blood pressure 128 mm[Hg] 128 mm[Hg] e CW1 ([facility]) Diastolic blood pressure 90 mm[Hg] 90 mm[Hg] eCW1 ([facility]) Body weight 187 [lb_av] 187 [lb_av] eCW1 (Count includes the [facility]) Body height 67 [in_i] 67 [in_i] eCW1 ([facility]) Body mass index (BMI) [Ratio] 29.29 kg/m2 29.29 kg/m2 eCW1 ([facility]) Heart rate 104 /min 104 /min eCW1 ([facility]) Respiratory rate 18 /min 18 /min eCW1 ([facility]) Body temperature 97 [degF] 97 [degF] eCW1 ([facility]) Systolic blood pressure 122 mm[Hg] 122 mm[Hg] e CW1 ([facility]) Diastolic blood pressure 74 mm[Hg] 74 mm[Hg] eCW1 ([facility]) Body weight 189.0 [lb_av] 189.0 [lb_av] eCW1 ([facility]) Body height 67 [in_i] 67 [in_i] eCW1 ([facility]) Body mass index (BMI) [Ratio] 29.60 kg/m2 29.60 kg/m2 eCW1 ([facility]) Heart rate 93 /min 93 /min eCW1 ([facility]) Respiratory rate 18 /min 18 /min eCW1 ([facility]) Body temperature 97.0 [degF] 97.0 [degF] eCW1 ( [facility]) Systolic blood pressure 111 mm[Hg] 111 mm[Hg] e CW1 ([facility]) Diastolic blood pressure 78 mm[Hg] 78 mm[Hg] eCW1 ([facility]) Heart rate 95 /min 95 /min eCW1 ([facility]) Respiratory rate 18 /min 18 /min eCW1 ([facility]) Body temperature 96.7 [degF] 96.7 [degF] eCW1 ( [facility]) Systolic blood pressure 116 mm[Hg] 116 mm[Hg] e CW1 ([facility]) Body weight 197 [lb_av] 197 [lb_av] eCW1 (Count includes the [facility]) Diastolic blood pressure 70 mm[Hg] 70 mm[Hg] eCW1 ([facility]) Body height 67 [in_i] 67 [in_i] eCW1 ([facility]) Body mass index (BMI) [Ratio] 30.85 kg/m2 30.85 kg/m2 eCW1 ([facility]) Body weight 202.6 [lb_av] 202.6 [lb_av] eCW1 ([facility]) Systolic blood pressure 131 mm[Hg] 131 mm[Hg] e CW1 ([facility]) Diastolic blood pressure 71 mm[Hg] 71 mm[Hg] eCW1 ([facility]) Body height 67 [in_i] 67 [in_i] eCW1 ([facility]) Body mass index (BMI) [Ratio] 31.73 kg/m2 31.73 kg/m2 eCW1 ([facility]) Heart rate 83 /min 83 /min eCW1 ([facility]) Respiratory rate 18 /min 18 /min eCW1 ([facility]) Body temperature 97.8 [degF] 97.8 [degF] eCW1 ( [facility]) Body weight 195.2 [lb_av] 195.2 [lb_av] eCW1 ([facility]) Body height 67 [in_i] 67 [in_i] eCW1 ([facility]) Body mass index (BMI) [Ratio] 30.57 kg/m2 30.57 kg/m2 eCW1 ([facility]) Heart rate 117 /min 117 /min eCW1 ([facility]) Respiratory rate 18 /min 18 /min eCW1 ([facility]) Body temperature 96.5 [degF] 96.5 [degF] eCW1 ( [facility]) Systolic blood pressure 122 mm[Hg] 122 mm[Hg] e CW1 ([facility]) Diastolic blood pressure 74 mm[Hg] 74 mm[Hg] eCW1 ([facility]) Body weight 196.4 [lb_av] 196.4 [lb_av] eCW1 ([facility]) Body height 67 [in_i] 67 [in_i] eCW1 ([facility]) Body mass index (BMI) [Ratio] 30.76 kg/m2 30.76 kg/m2 W1 ([facility]) Heart rate 93 /min 93 /min eCW1 ([facility]) Respiratory rate 18 /min 18 /min eCW1 ([facility]) Body temperature 97.6 [degF] 97.6 [degF] eCW1 ( [facility]) Systolic blood pressure 123 mm[Hg] 123 mm[Hg] e CW1 ([facility]) Diastolic blood pressure 84 mm[Hg] 84 mm[Hg] eCW1 ([facility]) Body weight 195 [lb_av] 195 [lb_av] eCW1 (Count includes the [facility]) Body height 67 [in_i] 67 [in_i] eCW1 ([facility]) Body mass index (BMI) [Ratio] 30.54 kg/m2 30.54 kg/m2 eCW1 ([facility]) Heart rate 68 /min 68 /min eCW1 ([facility]) Respiratory rate 18 /min 18 /min eCW1 ([facility]) Body temperature 98.4 [degF] 98.4 [degF] eCW1 ( [facility]) Systolic blood pressure 125 mm[Hg] 125 mm[Hg] e CW1 ([facility]) Diastolic blood pressure 85 mm[Hg] 85 mm[Hg] eCW1 ([facility]) Body weight 195 [lb_av] 195 [lb_av] eCW1 (Count includes the [facility]) Respiratory rate 18 /min 18 /min eCW1 ([facility]) Body temperature 98.2 [degF] 98.2 [degF] eCW1 ( [facility]) Systolic blood pressure 116 mm[Hg] 116 mm[Hg] e CW1 ([facility]) Diastolic blood pressure 80 mm[Hg] 80 mm[Hg] eCW1 ([facility]) Body height 67 [in_i] 67 [in_i] eCW1 ([facility]) Body mass index (BMI) [Ratio] 30.54 kg/m2 30.54 kg/m2 eCW1 ([facility]) Heart rate 90 /min 90 /min eCW1 ([facility]) Body weight 195 [lb_av] 195 [lb_av] eCW1 (Count includes the [facility]) Body height 67 [in_i] 67 [in_i] eCW1 ([facility]) Body mass index (BMI) [Ratio] 30.54 kg/m2 30.54 kg/m2 eCW1 ([facility]) Heart rate 83 /min 83 /min eCW1 ([facility]) Respiratory rate 18 /min 18 /min eCW1 ([facility]) Body temperature 98 [degF] 98 [degF] eCW1 ([facility]) Systolic blood pressure 117 mm[Hg] 117 mm[Hg] e CW1 ([facility]) Diastolic blood pressure 64 mm[Hg] 64 mm[Hg] eCW1 ([facility]) Body mass index (BMI) [Ratio] 30.22 kg/m2 30.22 kg/m2 eCW1 ([facility]) Body height 67 [in_i] 67 [in_i] eCW1 ([facility]) Body weight 193 [lb_av] 193 [lb_av] eCW1 (Count includes the [facility]) Heart rate 81 /min 81 /min eCW1 ([facility]) Respiratory rate 18 /min 18 /min eCW1 ([facility]) Body temperature 98.6 [degF] 98.6 [degF] eCW1 ( [facility]) Systolic blood pressure 119 mm[Hg] 119 mm[Hg] e CW1 ([facility]) Diastolic blood pressure 76 mm[Hg] 76 mm[Hg] eCW1 ([facility]) Body weight 193.0 [lb_av] 193.0 [lb_av] eCW1 ([facility]) Body height 67 [in_i] 67 [in_i] eCW1 ([facility]) Body mass index (BMI) [Ratio] 30.22 kg/m2 30.22 kg/m2 eCW1 ([facility]) Heart rate 84 /min 84 /min eCW1 ([facility]) Respiratory rate 18 /min 18 /min eCW1 ([facility]) Body temperature 98.9 [degF] 98.9 [degF] eCW1 ( [facility]) Systolic blood pressure 132 mm[Hg] 132 mm[Hg] e CW1 ([facility]) Diastolic blood pressure 96 mm[Hg] 96 mm[Hg] eCW1 ([facility]) Body weight 193 [lb_av] 193 [lb_av] eCW1 (Count includes the [facility]) Body height 67 [in_i] 67 [in_i] eCW1 ([facility]) Body mass index (BMI) [Ratio] 30.22 kg/m2 30.22 kg/m2 eCW1 ([facility]) Heart rate 88 /min 88 /min eCW1 ([facility]) Respiratory rate 18 /min 18 /min eCW1 ([facility]) Body temperature 98.6 [degF] 98.6 [degF] eCW1 ( [facility]) Systolic blood pressure 148 mm[Hg] 148 mm[Hg] e CW1 ([facility]) Diastolic blood pressure 82 mm[Hg] 82 mm[Hg] eCW1 ([facility]) Respiratory rate 18 /min 18 /min eCW1 ([facility]) Body weight 191 [lb_av] 191 [lb_av] eCW1 (Count includes the [facility]) Body height 67 [in_i] 67 [in_i] eCW1 ([facility]) Body mass index (BMI) [Ratio] 29.91 kg/m2 29.91 kg/m2 eCW1 ([facility]) Heart rate 93 /min 93 /min eCW1 ([facility]) Body temperature 98.2 [degF] 98.2 [degF] eCW1 ( [facility]) Systolic blood pressure 130 mm[Hg] 130 mm[Hg] e CW1 ([facility]) Diastolic blood pressure 78 mm[Hg] 78 mm[Hg] eCW1 ([facility]) Body weight 191 [lb_av] 191 [lb_av] eCW1 (Count includes the [facility]) Body height 67 [in_i] 67 [in_i] eCW1 ([facility]) Body mass index (BMI) [Ratio] 29.91 kg/m2 29.91 kg/m2 eCW1 ([facility]) Heart rate 88 /min 88 /min eCW1 ([facility]) Respiratory rate 18 /min 18 /min eCW1 ([facility]) Body temperature 98.5 [degF] 98.5 [degF] eCW1 ( [facility]) Systolic blood pressure 138 mm[Hg] 138 mm[Hg] e CW1 ([facility]) Diastolic blood pressure 78 mm[Hg] 78 mm[Hg] eCW1 ([facility]) Body weight 192.8 [lb_av] 192.8 [lb_av] eCW1 ([facility]) Body height 67 [in_i] 67 [in_i] eCW1 ([facility]) Body mass index (BMI) [Ratio] 30.19 kg/m2 30.19 kg/m2 eCW1 ([facility]) Heart rate 66 /min 66 /min eCW1 ([facility]) Respiratory rate 18 /min 18 /min eCW1 ([facility]) Body temperature 98.1 [degF] 98.1 [degF] eCW1 ( [facility]) Systolic blood pressure 170 mm[Hg] 170 mm[Hg] e CW1 ([facility]) Diastolic blood pressure mm[Hg] eCW1 ([facility]) Respiratory rate 18 /min 18 /min eCW1 ([facility]) Body temperature 98.4 [degF] 98.4 [degF] eCW1 ( [facility]) Systolic blood pressure 150 mm[Hg] 150 mm[Hg] e CW1 ([facility]) Diastolic blood pressure 100 mm[Hg] 100 mm[Hg] eCW1 ([facility]) Body height 67 [in_i] 67 [in_i] eCW1 ([facility]) Body mass index (BMI) [Ratio] 29.13 kg/m2 29.13 kg/m2 eCW1 ([facility]) Heart rate 97 /min 97 /min eCW1 ([facility]) Body weight 186 [lb_av] 186 [lb_av] eCW1 (Count includes the [facility]) Body weight 187.0 [lb_av] 187.0 [lb_av] eCW1 ([facility]) Body height 67 [in_i] 67 [in_i] eCW1 ([facility]) Body mass index (BMI) [Ratio] 29.29 kg/m2 29.29 kg/m2 eCW1 ([facility]) Heart rate 91 /min 91 /min eCW1 ([facility]) Respiratory rate 18 /min 18 /min eCW1 ([facility]) Body temperature 98.5 [degF] 98.5 [degF] eCW1 ( [facility]) Systolic blood pressure 155 mm[Hg] 155 mm[Hg] e CW1 ([facility]) Diastolic blood pressure 106 mm[Hg] 106 mm[Hg] eCW1 ([facility]) Body weight 189.8 [lb_av] 189.8 [lb_av] eCW1 ([facility]) Body height 67 [in_i] 67 [in_i] eCW1 ([facility]) Body mass index (BMI) [Ratio] 29.72 kg/m2 29.72 kg/m2 eCW1 ([facility]) Heart rate 95 /min 95 /min eCW1 ([facility]) Respiratory rate 18 /min 18 /min eCW1 ([facility]) Body temperature 98.7 [degF] 98.7 [degF] eCW1 ( [facility]) Systolic blood pressure 131 mm[Hg] 131 mm[Hg] e CW1 ([facility]) Diastolic blood pressure 98 mm[Hg] 98 mm[Hg] eCW1 ([facility]) Body weight 192 [lb_av] 192 [lb_av] eCW1 (Count includes the [facility]) Body height 67 [in_i] 67 [in_i] eCW1 ([facility]) Body mass index (BMI) [Ratio] 30.07 kg/m2 30.07 kg/m2 eCW1 ([facility]) Heart rate 80 /min 80 /min eCW1 ([facility]) Respiratory rate 18 /min 18 /min eCW1 ([facility]) Body temperature 97.2 [degF] 97.2 [degF] eCW1 ( [facility]) Systolic blood pressure 159 mm[Hg] 159 mm[Hg] e CW1 ([facility]) Diastolic blood pressure 85 mm[Hg] 85 mm[Hg] eCW1 ([facility]) Body weight 189.6 [lb_av] 189.6 [lb_av] eCW1 ([facility]) Body height 67 [in_i] 67 [in_i] eCW1 ([facility]) Body mass index (BMI) [Ratio] 29.69 kg/m2 29.69 kg/m2 eCW1 ([facility]) Heart rate 109 /min 109 /min eCW1 ([facility]) Respiratory rate 18 /min 18 /min eCW1 ([facility]) Body temperature 97.7 [degF] 97.7 [degF] eCW1 ( [facility]) Systolic blood pressure 138 mm[Hg] 138 mm[Hg] e CW1 ([facility]) Diastolic blood pressure 88 mm[Hg] 88 mm[Hg] eCW1 ([facility]) Body weight 191.4 [lb_av] 191.4 [lb_av] eCW1 ([facility]) Body temperature 97.7 [degF] 97.7 [degF] eCW1 ( [facility]) Body height 67 [in_i] 67 [in_i] eCW1 ([facility]) Systolic blood pressure 136 mm[Hg] 136 mm[Hg] e CW1 ([facility]) Diastolic blood pressure mm[Hg] eCW1 ([facility]) Body mass index (BMI) [Ratio] 29.97 kg/m2 29.97 kg/m2 eCW1 ([facility]) Heart rate 82 /min 82 /min eCW1 ([facility]) Respiratory rate 18 /min 18 /min eCW1 ([facility]) Body height 67 [in_i] 67 [in_i] eCW1 ([facility]) Body weight 195.8 [lb_av] 195.8 [lb_av] eCW1 ([facility]) Respiratory rate 18 /min 18 /min eCW1 ([facility]) Body temperature 97.9 [degF] 97.9 [degF] eCW1 ( [facility]) Systolic blood pressure 130 mm[Hg] 130 mm[Hg] e CW1 ([facility]) Body mass index (BMI) [Ratio] 30.66 kg/m2 30.66 kg/m2 eCW1 ([facility]) Heart rate 82 /min 82 /min eCW1 ([facility]) Diastolic blood pressure 70 mm[Hg] 70 mm[Hg] eCW1 ([facility]) Body mass index (BMI) [Ratio] 31.16 kg/m2 31.16 kg/m2 eCW1 ([facility]) Body weight 199 [lb_av] 199 [lb_av] eCW1 (Count includes the [facility]) Body height 67 [in_i] 67 [in_i] eCW1 ([facility]) Systolic blood pressure 130 mm[Hg] 130 mm[Hg] e CW1 ([facility]) Diastolic blood pressure 76 mm[Hg] 76 mm[Hg] eCW1 ([facility]) Heart rate 101 /min 101 /min eCW1 ([facility]) Respiratory rate 18 /min 18 /min eCW1 ([facility]) Body temperature 97.3 [degF] 97.3 [degF] eCW1 ( [facility]) Diastolic blood pressure 82 mm[Hg] 82 mm[Hg] eCW1 ([facility]) Body weight 200.0 [lb_av] 200.0 [lb_av] eCW1 ([facility]) Body height 67 [in_i] 67 [in_i] eCW1 ([facility]) Body mass index (BMI) [Ratio] 31.32 kg/m2 31.32 kg/m2 eCW1 ([facility]) Heart rate 83 /min 83 /min eCW1 ([facility]) Respiratory rate 18 /min 18 /min eCW1 ([facility]) Body temperature 98.1 [degF] 98.1 [degF] eCW1 ( [facility]) Systolic blood pressure 143 mm[Hg] 143 mm[Hg] e CW1 ([facility]) Patient Treatment Plan of Care Planned Activity Planned Date Details Description Data Source (s) Acetaminophen 325 MG / Hydrocodone Bitartrate 10 MG Or al Tablet 05/29/2021 12:00:00 AM EST eCW1 ([facility]) Fluoxetine 10 MG Oral Capsule 05/23/2021 12:00:00 AM EST eCW1 ([facility]) Fluoxetine 10 MG Oral Capsule 05/23/2021 12:00:00 AM EST eCW1 ([facility]) Acetaminophen 325 MG / Hydrocodone Bitartrate 10 MG Or al Tablet 04/26/2021 12:00:00 AM EDT eCW1 ([facility]) Acetaminophen 325 MG / Hydrocodone Bitartrate 10 MG Or al Tablet 04/26/2021 12:00:00 AM EDT eCW1 ([facility]) Acetaminophen 325 MG / Hydrocodone Bitartrate 10 MG Or al Tablet 03/24/2021 12:00:00 AM EDT eCW1 ([facility]) Acetaminophen 325 MG / Hydrocodone Bitartrate 10 MG Or al Tablet 03/24/2021 12:00:00 AM EDT eCW1 ([facility]) Acetaminophen 325 MG / Hydrocodone Bitartrate 10 MG Or al Tablet 02/28/2021 12:00:00 AM EDT eCW1 ([facility]) Acetaminophen 325 MG / Hydrocodone Bitartrate 10 MG Or al Tablet 02/28/2021 12:00:00 AM EDT eCW1 ([facility]) Phentermine Hydrochloride 37.5 MG Oral Capsule 02/15/2021 12:00:00 AM EDT eCW1 ([facility]) Phentermine Hydrochloride 37.5 MG Oral Capsule 02/15/2021 12:00:00 AM EDT eCW1 ([facility]) Phentermine Hydrochloride 37.5 MG Oral Capsule 02/15/2021 12:00:00 AM EDT eCW1 ([facility]) Phentermine Hydrochloride 37.5 MG Oral Capsule 02/15/2021 12:00:00 AM EDT eCW1 ([facility]) Phentermine Hydrochloride 37.5 MG Oral Capsule 02/15/2021 12:00:00 AM EDT eCW1 ([facility]) Phentermine Hydrochloride 37.5 MG Oral Capsule 02/15/2021 12:00:00 AM EDT eCW1 ([facility]) Carisoprodol 350 MG Oral Tablet 02/14/2021 12:00:00 AM EDT eCW1 ([facility]) Carisoprodol 350 MG Oral Tablet 02/14/2021 12:00:00 AM EDT eCW1 ([facility]) Carisoprodol 350 MG Oral Tablet 02/14/2021 12:00:00 AM EDT eCW1 ([facility]) Carisoprodol 350 MG Oral Tablet 02/14/2021 12:00:00 AM EDT eCW1 ([facility]) Carisoprodol 350 MG Oral Tablet 02/14/2021 12:00:00 AM EDT eCW1 ([facility]) Carisoprodol 350 MG Oral Tablet 02/14/2021 12:00:00 AM EDT eCW1 ([facility]) Triamcinolone Acetonide 0.001 MG/MG Topical Ointment 12:00:00 AM EDT eCW1 ([facility]) Acetaminophen 325 MG / Hydrocodone Bitartrate 10 MG Or al Tablet 01/25/2021 12:00:00 AM EDT eCW1 ([facility]) Acetaminophen 325 MG / Hydrocodone Bitartrate 10 MG Or al Tablet 01/25/2021 12:00:00 AM EDT eCW1 ([facility]) Acetaminophen 325 MG / Hydrocodone Bitartrate 10 MG Or al Tablet 01/25/2021 12:00:00 AM EDT eCW1 ([facility]) Acetaminophen 325 MG / Hydrocodone Bitartrate 10 MG Or al Tablet 01/25/2021 12:00:00 AM EDT eCW1 ([facility]) Acetaminophen 325 MG / Hydrocodone Bitartrate 10 MG Or al Tablet 01/25/2021 12:00:00 AM EDT eCW1 ([facility]) Acetaminophen 325 MG / Hydrocodone Bitartrate 10 MG Or al Tablet 01/25/2021 12:00:00 AM EDT eCW1 ([facility]) Acetaminophen 325 MG / Hydrocodone Bitartrate 10 MG Or al Tablet 01/02/2021 12:00:00 AM EDT eCW1 ([facility]) Acetaminophen 325 MG / Hydrocodone Bitartrate 10 MG Or al Tablet 01/02/2021 12:00:00 AM EDT eCW1 ([facility]) Acetaminophen 325 MG / Hydrocodone Bitartrate 10 MG Or al Tablet 11/30/2020 12:00:00 AM EDT eCW1 ([facility]) Phentermine Hydrochloride 37.5 MG Oral Capsule 11/17/2020 12:00:00 AM EDT eCW1 ([facility]) Phentermine Hydrochloride 37.5 MG Oral Capsule 11/17/2020 12:00:00 AM EDT eCW1 ([facility]) Phentermine Hydrochloride 37.5 MG Oral Capsule 11/17/2020 12:00:00 AM EDT eCW1 ([facility]) Phentermine Hydrochloride 37.5 MG Oral Capsule 11/17/2020 12:00:00 AM EDT eCW1 ([facility]) Phentermine Hydrochloride 37.5 MG Oral Capsule 11/17/2020 12:00:00 AM EDT eCW1 ([facility]) Phentermine Hydrochloride 37.5 MG Oral Capsule 11/17/2020 12:00:00 AM EDT eCW1 ([facility]) Phentermine Hydrochloride 37.5 MG Oral Capsule 11/17/2020 12:00:00 AM EDT eCW1 ([facility]) Phentermine Hydrochloride 37.5 MG Oral Capsule 11/17/2020 12:00:00 AM EDT eCW1 ([facility]) duloxetine 30 MG Delayed Release Oral Capsule [Cymbalt a] 11/08/2020 12:00:00 AM EDT eCW1 ([facility]) duloxetine 30 MG Delayed Release Oral Capsule [Cymbalt a] 11/08/2020 12:00:00 AM EDT eCW1 ([facility]) Acetaminophen 325 MG / Hydrocodone Bitartrate 7.5 MG O ral Tablet 11/04/2020 12:00:00 AM EDT eCW1 ([facility]) Acetaminophen 325 MG / Hydrocodone Bitartrate 7.5 MG O ral Tablet 11/04/2020 12:00:00 AM EDT eCW1 ([facility]) Acetaminophen 325 MG / Hydrocodone Bitartrate 7.5 MG O ral Tablet 11/04/2020 12:00:00 AM EDT eCW1 ([facility]) Hydrochlorothiazide 12.5 MG Oral Tablet 10/19/2020 12:00:00 AM EDT eCW1 ([facility]) Hydrochlorothiazide 12.5 MG Oral Tablet 10/19/2020 12:00:00 AM EDT eCW1 ([facility]) Hydrochlorothiazide 12.5 MG Oral Tablet 10/19/2020 12:00:00 AM EDT eCW1 ([facility]) Hydrochlorothiazide 12.5 MG Oral Tablet 10/19/2020 12:00:00 AM EDT eCW1 ([facility]) Hydrochlorothiazide 12.5 MG Oral Tablet 10/19/2020 12:00:00 AM EDT eCW1 ([facility]) Hydrochlorothiazide 12.5 MG Oral Tablet 10/19/2020 12:00:00 AM EDT eCW1 ([facility]) Hydrochlorothiazide 12.5 MG Oral Tablet 10/19/2020 12:00:00 AM EDT eCW1 ([facility]) Hydrochlorothiazide 12.5 MG Oral Tablet 10/19/2020 12:00:00 AM EDT eCW1 ([facility]) Hydrochlorothiazide 12.5 MG Oral Tablet 10/19/2020 12:00:00 AM EDT eCW1 ([facility]) Hydrochlorothiazide 12.5 MG Oral Tablet 10/19/2020 12:00:00 AM EDT eCW1 ([facility]) Hydrochlorothiazide 12.5 MG Oral Tablet 10/19/2020 12:00:00 AM EDT eCW1 ([facility]) Losartan Potassium 25 MG Oral Tablet 10/19/2020 12:00:00 AM EDT eCW1 ([facility]) Hydrochlorothiazide 12.5 MG Oral Tablet 10/19/2020 12:00:00 AM EDT eCW1 ([facility]) Losartan Potassium 25 MG Oral Tablet 10/19/2020 12:00:00 AM EDT eCW1 ([facility]) Hydrochlorothiazide 12.5 MG Oral Tablet 10/19/2020 12:00:00 AM EDT eCW1 ([facility]) Losartan Potassium 25 MG Oral Tablet 10/19/2020 12:00:00 AM EDT eCW1 ([facility]) Hydrochlorothiazide 12.5 MG Oral Tablet 10/19/2020 12:00:00 AM EDT eCW1 ([facility]) Losartan Potassium 25 MG Oral Tablet 10/19/2020 12:00:00 AM EDT eCW1 ([facility]) Losartan Potassium 25 MG Oral Tablet 10/19/2020 12:00:00 AM EDT eCW1 ([facility]) Hydrochlorothiazide 12.5 MG Oral Tablet 10/19/2020 12:00:00 AM EDT eCW1 ([facility]) Losartan Potassium 25 MG Oral Tablet 10/19/2020 12:00:00 AM EDT eCW1 ([facility]) Hydrochlorothiazide 12.5 MG Oral Tablet 10/19/2020 12:00:00 AM EDT eCW1 ([facility]) Acetaminophen 325 MG / Hydrocodone Bitartrate 7.5 MG O ral Tablet 09/30/2020 12:00:00 AM EDT eCW1 ([facility]) Acetaminophen 325 MG / Hydrocodone Bitartrate 7.5 MG O ral Tablet 09/30/2020 12:00:00 AM EDT eCW1 ([facility]) Acetaminophen 325 MG / Hydrocodone Bitartrate 7.5 MG O ral Tablet 09/30/2020 12:00:00 AM EDT eCW1 ([facility]) Acetaminophen 325 MG / Hydrocodone Bitartrate 7.5 MG O ral Tablet 09/30/2020 12:00:00 AM EDT eCW1 ([facility]) Acetaminophen 325 MG / Hydrocodone Bitartrate 7.5 MG O ral Tablet 08/31/2020 12:00:00 AM EST eCW1 ([facility]) Acetaminophen 325 MG / Hydrocodone Bitartrate 7.5 MG O ral Tablet 08/02/2020 12:00:00 AM EST eCW1 ([facility]) Acetaminophen 325 MG / Hydrocodone Bitartrate 7.5 MG O ral Tablet 08/02/2020 12:00:00 AM EST eCW1 ([facility]) Hydrochlorothiazide 12.5 MG Oral Tablet 07/12/2020 12:00:00 AM EST eCW1 ([facility]) Acetaminophen 325 MG / Hydrocodone Bitartrate 7.5 MG O ral Tablet 06/28/2020 12:00:00 AM EST eCW1 ([facility]) Acetaminophen 325 MG / Hydrocodone Bitartrate 7.5 MG O ral Tablet 06/28/2020 12:00:00 AM EST eCW1 ([facility]) Acetaminophen 325 MG / Hydrocodone Bitartrate 7.5 MG O ral Tablet 06/28/2020 12:00:00 AM EST eCW1 ([facility]) Acetaminophen 325 MG / Hydrocodone Bitartrate 7.5 MG O ral Tablet 06/28/2020 12:00:00 AM EST eCW1 ([facility]) Acetaminophen 325 MG / Hydrocodone Bitartrate 7.5 MG O ral Tablet 06/27/2020 12:00:00 AM EST eCW1 ([facility]) pantoprazole 20 MG Delayed Release Oral Tablet 06/16/2020 12:00:00 AM EST eCW1 ([facility]) pantoprazole 20 MG Delayed Release Oral Tablet 06/16/2020 12:00:00 AM EST eCW1 ([facility]) pantoprazole 20 MG Delayed Release Oral Tablet 06/16/2020 12:00:00 AM EST eCW1 ([facility]) pantoprazole 20 MG Delayed Release Oral Tablet 06/16/2020 12:00:00 AM EST eCW1 ([facility]) Phentermine Hydrochloride 37.5 MG Oral Capsule 04/18/2020 12:00:00 AM EDT eCW1 ([facility]) Acetaminophen 325 MG / Hydrocodone Bitartrate 7.5 MG O ral Tablet 04/13/2020 12:00:00 AM EDT eCW1 ([facility])
[2021-06-05] MEDS ORDERED: BUPIVACAINE HCL 0.25% 30ML VIAL As Ordered ONE (09:11)
[2021-06-05] MEDS ORDERED: ISOVUE-300 61% 50ML VIAL As Ordered ONE (09:11)
[2021-06-05] MEDS ORDERED: LIDOCAINE W/EPINEPHRINE 1% 20ML VIAL As Ordered ONE (09:12)
[2021-06-05] MEDS ORDERED: ONDANSETRON 4MG/2ML VIAL As Ordered ONE (09:53)
[2021-06-05] MEDS ORDERED: MIDAZOLAM INJ 2MG/2ML VIAL (J2250 PER 1MG) As Ordered ONE (09:53)
[2021-06-05] MEDS ORDERED: LIDOCAINE 2% 100MG/5ML SDV (FOR ANES.) As Ordered ONE (09:53)
[2021-06-05] MEDS ORDERED: propofoL 200 MG/20 ML VIAL As Ordered ONE (09:53)
[2021-06-05] MEDS ORDERED: fentaNYL 100 MCG/2 ML INJECTION (J3010) As Ordered ONE ×2 (09:54→11:42)
[2021-06-05] MEDS ORDERED: ceFAZolin 1GM VIAL (J0690 PER 500MG) As Ordered ONE (10:08)
[2021-06-05] MEDS ORDERED: ceFAZolin SOD 2 GM in IV 1 EA IV ONE (10:10)
[2021-06-05] MEDS ORDERED: ceFAZolin SOD 1 GM in D5W MINI-BAG PLUS 50 ML IV ONE (10:15)
--- NOTE | 2021-06-05 12:01 | REP ---
INDICATION: DISC DISORDER WITH RADICULOPATHY LUMBAR REGION. COMPARISON: None. TECHNIQUE: Three C-arm views thoracolumbar spine. FINDINGS: Dorsal column stimulator leads are present, the cephalic tip is at the T5-6 level. IMPRESSION: 484 seconds fluoroscopy time utilized. <Electronically signed by Marcellus Mcintosh > 06/05/21 [id number]
[2021-06-05] MEDS ORDERED: LR 1,000 ML IV SCH ×2 (12:25→12:45)
[2021-06-05] MEDS ORDERED: fentaNYL 100 MCG/2 ML INJECTION (J3010) IV PRN (12:25)
[2021-06-05] MEDS ORDERED: ONDANSETRON 4MG/2ML VIAL IV PRN (12:25)
[2021-06-05] MEDS ORDERED: PERCOCET 5MG/325MG TAB PO PRN (12:25)
[2021-06-05] MEDS ORDERED: METOCLOPRAMIDE INJ 10MG/2ML VIAL (J2765 PER 1) IV PRN (12:25)
[2021-06-05] MEDS ORDERED: FLUO10CA16 PO (13:34)
--- NOTE | 2021-06-05 13:47 | CR.PDOC ---
General Date of Consultation: Jun 05, 2021 Attending Physician: CLIFF TORRES MD Consultation REASON FOR CONSULTATION/CHIEF COMPLAINT: Low back pain, status post dorsal column stimulator placement for trial. HISTORY OF PRESENT ILLNESS: Patient is a 41-year-old female with a history of hypertension, GERD and chronic low back pain who presents to [facility] for dorsal column stimulator placement. Patient has already had a dorsal column stimulator placed by Dr. Murphy today, and IM team is being consulted for patient's chronic diseases and medical management. Patient reports that she is doing well at this time. Patient denies any chest pain, shortness of breath and denies any acute symptoms at this time. Patient reports that her low back pain is at baseline and she continues to have some back pain with movement of her lower extremities. ALLERGIES: Please see below. HOME MEDICATIONS: Please see below. PAST MEDICAL HISTORY: Hypertension GERD Chronic low back pain Anxiety PAST SURGICAL HISTORY: Dorsal column stimulator placed, 06/05/2021 Tubal ligation Full teeth removal, dentures upper and lower FAMILY HISTORY: Denies any significant history at this time Father: HTN, DMT2 SOCIAL HISTORY: Lives at home Denies smoking, alcohol use, marijuana use, illicit drug use. REVIEW OF SYSTEMS: General: Patient denies fevers HEENT: Patient denies headaches Cardiovascular: Patient denies chest pain Respiratory: Patient denies shortness of breath, cough GI: Patient denies abdominal pain, nausea, vomiting, diarrhea : Patient denies increased frequency or pain with urination Extremities: Patient denies swelling or pain in extremities Neurological: Patient denies numbness or tingling in legs Skin: Patient denies any new rashes or lesions. Hematologic: Patient denies any easy bruising. Lymphatic: Patient denies any lumps lumps or bumps in neck, axilla, or groin PHYSICAL EXAMINATION: General: pt is lying back in her gurney in no acute distress. HEENT: Normocephalic, atraumatic, moist mucous membranes. Neck: No lymphadenopathy or thyromegaly Cardiac: Regular rate and rhythm, no murmurs, normal S1, normal S2 Pulm: Clear to auscultation bilaterally. No wheezes, rhonchi, rales Abd: Nondistended, nontender to palpation, normal bowel sounds Ext: No edema bilateral lower extremities Neurological: Upper and lower extremity strength 5 out of 5, no focal motor deficits, cranial nerves II to XII intact Psychological: Alert and oriented x4, normal affect. LABORATORY DATA: Please see below. ASSESSMENT/PLAN: Patient is a 41-year-old female with a history of chronic low back pain status post dorsal column stimulator trial placed today. Internal medicine team has been consulted for medical management. #Chronic low back pain status post dorsal column stimulator trial Patient has received antibiotics per Dr. Murphy today. Continue pain management per Dr. Murphy's instructions, [place], 2 tabs q5h PRN for mild pain 1-4. #Hypertension Continue home medications: Losartan and HCTZ. #Anxiety Continue fluoxetine home dose. VTE prophylaxis: Teds and sequentials Disposition: Observation. Vital Signs/I&O Vital Signs Date Time Temp Pulse Resp B/P (MAP) Pulse Ox O2 Delivery O2 Flow Rate FiO2 06/05/21 12:55 97.6 63 16 103/62 (76) 98 Room Air Allergies Coded Allergies: Bleach (Sodium Hypochlorite) (Verified Allergy, Severe, hives, sob and swelling, 06/05/21) Gold Salts (Verified Allergy, Intermediate, hives, 06/05/21) gabapentin (Verified Adverse Reaction, Mild, vivid dreams, 06/05/21) Home Medications Scheduled Azelastine HCl (Azelastine HCl) 0.1% [place].pump, 1 SPRAY NA DAILY, (Reported) Fluoxetine Hcl (Fluoxetine HCl) 10 Mg Capsule, 10 PO DAILY, (Reported) Hydrochlorothiazide (Hydrochlorothiazide) 12.5 Mg Tablet, 12.5 MG PO DAILY, (Reported) Hydrocodone/Acetaminophen (Hydrocodone-Acetamin 10-325 mg) 1 Each Tablet, 1 TAB PO DAILY, (Reported) Losartan Potassium (Losartan Potassium) 25 Mg Tablet, 25 MG PO DAILY, (Reported) Pantoprazole Sodium (Pantoprazole Sodium) 20 Mg Tablet.dr, 20 MG PO DAILY, (Reported) GME ATTESTATION GME ATTESTATION My faculty preceptor for this patient encounter was physically present during the encounter and was fully available. All aspects of the patient interview, examination, medical decision making process, and medical care plan development were reviewed and approved by the faculty preceptor. The faculty preceptor is aware and concurs with the plan as stated in the body of this note and will attest to such by his/her cosignature. ATTENDING NOTE I, Cliff Torres MD, have independently examined this patient and performed my own physical exam while the resident and the students were with me in the patient room, as well as reviewed the documentation and edited where necessary. I have discussed in detail with the resident / student the findings and plan of treatment as documented by the resident / student and edited their note. I agree with their findings and treatment plan and have edited their documentation. Haroon Brownlee DO Jun 05, 2021 13:47 CLIFF TORRES MD Jun 09, 2021 15:40
[2021-06-05 13:54] LABS: BASO % 0.3 % (0.0-1.0); EOS # 0.1 10^3/uL (0.0-0.5); HEMATOCRIT 34.7 % (36.0-47.0); HEMOGLOBIN 10.7 g/dl (12.0-15.5); LYMPH # 1.4 10^3/uL (1.5-5.0); MEAN CORPUSCULAR HEMOGLOBIN 24.6 pg (27.0-33.0); MEAN CORPUSCULAR HGB CONC 30.8 g/dl (32.0-36.5); MEAN CORPUSCULAR VOLUME 79.8 fl (80.0-96.0); MONO # 0.3 10^3/uL (0.0-0.8); MONO % 5.5 % (2.0-8.0); NEUTROPHILS # 4.2 10^3/uL (1.5-8.5); PLATELET COUNT, AUTOMATED 241 10^3/uL (150-450); RED BLOOD COUNT 4.35 10^6/uL (4.00-5.40)
--- NOTE | 2021-06-05 14:40 | ROOPDOC ---
[facility] Report Of Operation Report of Operation DATE OF PROCEDURE: 06/05/2021 PREPROCEDURE DIAGNOSIS: Lumbar disc disorder with radiculopathy POSTPROCEDURE DIAGNOSIS: Lumbar disc disorder with radiculopathy PROCEDURE: Spinal column stimulator trial. SURGEON: Jeffrey Hatch MD SPECIAL EVENTS DIRECTOR: None ANESTHESIA: Local with monitored anesthesia care. PREPROCEDURE NOTE: 41-year-old female patient with history of chronic low back and leg pain. In the past, I have discussed with the patient the possibility of doing a spinal column stimulator trial. The patient has tried interventional management and medication management and the pain has persisted. After discussing alternatives, the patient has expressed that she would like to move forward with a spinal column stimulator trial. The patient is in the OR today for this procedure. I went over the risks, alternatives and benefits associated with this procedure and the patient expressed that she will like to proceed. The patient denies unexplained weight loss, fever, chills, or new changes in his urinary or bowel control. DESCRIPTION OF PROCEDURE: After consent was taken, the patient was brought to the procedure room and placed in the prone position. The thoracolumbar area was cleaned with Betadine solution and draped aseptically. The procedure was done under sterile conditions and under fluoroscopic guidance. The patient received Cefazolin 1 gm intravenous. Appropriate time out was done. Target point was selected at the interlaminar level of L1-L2. Lidocaine 1% was used to numb the skin and the subcutaneous tissue below it. An Epimed Coude epidural Touhy needle, 14-gauge, was advanced under fluoroscopic guidance until I touched the right lamina of L2 and then by the loss of resistance technique, the epidural space was reached 7 cm deep into the skin. A 16 contact Infinion lead from [employer] was advanced through the Tuohy needle to the epidural space and then advanced under fluoroscopy approximately to the level of T6. A decision was made to put a second lead. I selected as an entry point the left side of the interlaminar level of L2-L3. Lidocaine 1% was used again as local anesthetic. A second 14-gauge Touhy needle was advanced under fluoroscopic until I touch the left lamina of L3. Then I advanced the needle to the epidural space using the loss of resistance technique. I reached the epidural space 7 cm deep into the skin. A second 16 contact lead from [employer] was advanced through this Tuohy needle and advanced through the posterior and medial aspect of the epidural space until I placed the second lead parallel to the first one at the level of T6. Extension cables were attached to the leads and the extensions were attached to the [employer] computer system. I started to do programming. This was a simple 30 minute programming where I changed the position of the leads, voltage used, and contact used. The final position of the leads for proper stimulation was at the level of T6, T7 and T8 as seen in the AP and lateral views. X-ray films were kept in the patient's electronic medical record for future reference. After agreeing on the leads position with the patient, I removed the extensions, removed the Stylet, and secured the two leads to the patient's skin using Steri- Strips and Tegaderms. There was no evidence of blood, paresthesia or cerebrospinal fluid during this procedure. The patient was sent to the recovery room. There was no complication during the procedure. POST-OPERATIVE NOTE: The patient was in the recovery room, doing well. I review with the patient what to expect during the next few days. The patient is going to stay in a short stay observation in the hospital and discharged in less than 24 hours. Patient reports understanding of our discussion and agrees with the plan. Jeffrey Hatch MD Jun 05, 2021 14:40
[2021-06-05 14:53] LABS: BLOOD UREA NITROGEN 15 MG/DL (7-18); CALCIUM LEVEL 8.7 MG/DL (8.5-10.1); CARBON DIOXIDE LEVEL 21 MEQ/L (21-32); CHLORIDE LEVEL 106 MEQ/L (98-107); CREATININE FOR GFR 0.83 MG/DL (0.55-1.30); GLOMERULAR FILTRATION RATE > 60.0 (>58); GLUCOSE, FASTING 105 MG/DL (70-100); POTASSIUM SERUM 3.8 MEQ/L (3.5-5.1); SODIUM LEVEL 139 MEQ/L (136-145)
[2021-06-05] MEDS: LOSARTAN 25 MG TAB PO SCH (16:00)
[2021-06-05] MEDS: PANTOPRAZOLE 20 MG TAB PO SCH (16:05)
[2021-06-05] MEDS: hydroCHLOROthiazide 12.5 MG CAPSULE PO SCH (16:05)
[2021-06-05] MEDS: FLUoxetine 10 MG CAP PO SCH (16:05)
[2021-06-05] MEDS: ceFAZolin SOD 1 GM in D5W MINI-BAG PLUS 50 ML IV SCH (17:01)
[2021-06-05] MEDS: NORCO, ANEXSIA 5/325MG TABLET (HYDROcodone/ACETAMINOPHEN) PO PRN (17:02)
[2021-06-06 01:50] VITALS: BP 116/75
[2021-06-06] MEDS: ceFAZolin SOD 1 GM in D5W MINI-BAG PLUS 50 ML IV SCH (02:55)
[2021-06-06 04:21] VITALS: BP 150/86
[2021-06-06] MEDS: NORCO, ANEXSIA 5/325MG TABLET (HYDROcodone/ACETAMINOPHEN) PO PRN (04:50)
[2021-06-06 08:07] VITALS: BP 156/88
[2021-06-06] MEDS: LOSARTAN 25 MG TAB PO SCH (08:07)
[2021-06-06] MEDS: PANTOPRAZOLE 20 MG TAB PO SCH (08:07)
[2021-06-06] MEDS: hydroCHLOROthiazide 12.5 MG CAPSULE PO SCH (08:07)
[2021-06-06] MEDS: FLUoxetine 10 MG CAP PO SCH (08:07)
--- NOTE | 2021-06-06 15:05 | DS.PDOC ---
Discharge Summary General Date of Admission 06/05/2021 Date of Discharge 06/06/2021 Discharge Summary PROCEDURES PERFORMED DURING STAY: Spinal column stimulator trial on 06/05/[address] Jeffrey Hatch ADMITTING DIAGNOSES / DISCHARGE DIAGNOSES: Chronic low back pain status post dorsal column stimulator trial Hypertension Anxiety DVT prophylaxis COMPLICATIONS/CHIEF COMPLAINT: Back pain HISTORY OF PRESENT ILLNESS: Patient is a 41-year-old female with a past medical history of hypertension, GERD and chronic lower back pain who presented to [facility] for an elective procedure with anesthesia. Patient has received outpatient medical care from her primary care provider. Hospitalist services consulted for medical comanagement postoperatively. Patient was seen and examined at the bedside. Currently, she was frustrated that she has not yet left the hospital. She denies any nausea, vomiting, chest pain, short of breath, palpitations, abdominal pain or diarrhea. HOSPITAL COURSE: Chronic low back pain status post dorsal column stimulator trial - Patient presented to the hospital for an elective procedure with Dr. Murphy - Clinically patient reports that she feels relatively fine postoperatively on POD#1 - Patient has been cleared by anesthesia for discharge home - Discussed case with Dr. Murphy patient is already been prescribed antibiotics for continuation at home - Will have outpatient follow-up with primary care provider, and anesthesia within the next 7 days Hypertension - BP well controlled - c/w Losartan / HCTZ Anxiety - c/w Fluoxetine DVT prophylaxis - c/w TEDs/Sequentials DISCHARGE MEDICATIONS: Please see below. ALLERGIES: Please see below. PHYSICAL EXAMINATION ON DISCHARGE: Vitals (See below) General: Lying in bed, appears comfortable, AAOx3 HEENT: NC, AT CVS: +S1S2 Lungs: Fair air entry b/l, no wheezing, rales or rhonchi Abdomen: Soft, ND, NT Extremities: No evidence of edema, - Calf tenderness LABORATORY DATA: Please see below. IMAGING: Guidance fluoroscopy 06/05: FINDINGS: Dorsal column stimulator leads are present, the cephalic tip is at the T5-6 level. IMPRESSION: 484 seconds fluoroscopy time utilized. ACTIVITY: [As tolerated]. DISCHARGE PLAN: Follow-up with primary care provider, and anesthesia within the next 7 days Remain compliant with treatment plan and medications Return to the ER if you experience any problems DISPOSITION: Home DISCHARGE CONDITION: [Stable]. TIME SPENT ON DISCHARGE: 35 minutes. Vital Signs/I&Os Vital Signs Date Time Temp Pulse Resp B/P (MAP) Pulse Ox O2 Delivery O2 Flow Rate FiO2 06/06/21 08:07 156/88 06/06/21 05:20 17 Room Air 06/06/21 04:21 98.1 81 98 I&O- Last 24 Hours up to 6 AM 06/06/21 06:00 Intake Total 1270 ml Balance 1270 ml Discharge Medications Scheduled Azelastine HCl (Azelastine HCl) 0.1% [place].pump, 1 SPRAY NA DAILY, (Reported) Fluoxetine Hcl (Fluoxetine HCl) 10 Mg Capsule, 10 PO DAILY, (Reported) Hydrochlorothiazide (Hydrochlorothiazide) 12.5 Mg Tablet, 12.5 MG PO DAILY, (Reported) Hydrocodone/Acetaminophen (Hydrocodone-Acetamin 10-325 mg) 1 Each Tablet, 1 TAB PO DAILY, (Reported) Losartan Potassium (Losartan Potassium) 25 Mg Tablet, 25 MG PO DAILY, (Reported) Pantoprazole Sodium (Pantoprazole Sodium) 20 Mg Tablet.dr, 20 MG PO DAILY, (Reported) Allergies Coded Allergies: Bleach (Sodium Hypochlorite) (Verified Allergy, Severe, hives, sob and swelling, 06/05/21) Gold Salts (Verified Allergy, Intermediate, hives, 06/05/21) gabapentin (Verified Adverse Reaction, Mild, vivid dreams, 06/05/21) EDWARDO ARTIS MD Jun 06, 2021 15:05
== END 2021-06-06 09:20 | disposition home or self-care (01) ==
LOC: M SDC 07:32 → M MS5PR 15:35 → M SDC 06-06 09:20
PROVIDERS: ATTEND Anesthesiology
DX: M51.16 Intervertebral disc disorders with radiculopathy, lumbar region (principal); G43.909 Migraine, unspecified, not intractable, without status migrainosus; F41.9 Anxiety disorder, unspecified; N39.3 Stress incontinence (female) (male); I10 Essential (primary) hypertension; Z87.891 Personal history of nicotine dependence; Z79.899 Other long term (current) drug therapy; Z88.8 Allergy status to other drugs, medicaments and biological substances
CPT/HCPCS: 36415; 63650; 76000; 80048; 85025; 96365; 96366; C1778; J0690; J2250; J2405; J3010

== ENCOUNTER → 2021-06-09 | Outpatient (CLI) | payer BC ==
[~2021-06-09] MED LIST changes: +FLUO10CA16 PO; -LIDOCAINE 1% MDV 20ML VIAL SQ PRN; -LR 1,000 ML IV ONE
--- NOTE | 2021-06-09 13:22 | REP ---
INDICATION: LEAD PULL. COMPARISON: None. TECHNIQUE: Two C-arm views thoracolumbar region. FINDINGS: Radiopaque leads are noted in the midline, the cephalic tip is at the T6 level. IMPRESSION: Fluoroscopy time 40 seconds. <Electronically signed by Marcellus Mcintosh > 06/09/21 [id number]
== END ==
LOC: M PAIN 11:45
PROVIDERS: ATTEND Anesthesiology
DX: M51.16 Intervertebral disc disorders with radiculopathy, lumbar region (principal); G89.29 Other chronic pain; G43.909 Migraine, unspecified, not intractable, without status migrainosus; Z86.59 Personal history of other mental and behavioral disorders; Z87.891 Personal history of nicotine dependence; Z88.8 Allergy status to other drugs, medicaments and biological substances; Z91.09 Other allergy status, other than to drugs and biological substances; Z79.899 Other long term (current) drug therapy
CPT/HCPCS: 76000; G0463

== ENCOUNTER → 2021-08-11 | Outpatient (CLI) | payer OTHER ==
[~2021-08-11] MED LIST changes: -FLUO10CA16 PO; +FLUO10CA18 PO; +LOSA25TA13 PO; -LOSA25TA14 PO
== END ==
LOC: M PAIN 14:30
PROVIDERS: ATTEND Anesthesiology
DX: M51.16 Intervertebral disc disorders with radiculopathy, lumbar region (principal); G43.909 Migraine, unspecified, not intractable, without status migrainosus; F41.9 Anxiety disorder, unspecified; K75.81 Nonalcoholic steatohepatitis (NASH); G56.03 Carpal tunnel syndrome, bilateral upper limbs; I10 Essential (primary) hypertension; N39.3 Stress incontinence (female) (male); J30.1 Allergic rhinitis due to pollen; Z87.891 Personal history of nicotine dependence; Z79.891 Long term (current) use of opiate analgesic; Z79.899 Other long term (current) drug therapy; Z88.8 Allergy status to other drugs, medicaments and biological substances; Z91.048 Other nonmedicinal substance allergy status

== ENCOUNTER → 2021-09-21 | Outpatient (CLI) | payer OTHER | LOC: M PAIN 11:45 | PROVIDERS: ATTEND Anesthesiology | DX: M51.16 Intervertebral disc disorders with radiculopathy, lumbar region (principal); G43.909 Migraine, unspecified, not intractable, without status migrainosus; N39.3 Stress incontinence (female) (male); F41.9 Anxiety disorder, unspecified; R10.13 Epigastric pain; K75.81 Nonalcoholic steatohepatitis (NASH); I10 Essential (primary) hypertension; Z79.891 Long term (current) use of opiate analgesic; Z79.899 Other long term (current) drug therapy ==

== ENCOUNTER → 2021-11-04 | Outpatient (CLI) | payer OTHER | LOC: M LABSMTC 08:42 | PROVIDERS: ATTEND Anesthesiology | DX: Z01.812 Encounter for preprocedural laboratory examination (principal); Z20.822 Contact with and (suspected) exposure to COVID-19 ==

== ENCOUNTER → 2021-11-08 | Outpatient (CLI) | payer OTHER ==
[~2021-11-08] MED LIST changes: +BUPIVACAINE HCL 0.25% 30ML VIAL As Ordered ONE; +ISOVUE-M 300 61% 15ML VIAL As Ordered ONE; +LIDOCAINE 1% SDV 30ML VIAL As Ordered ONE; +dexameTHASONE 10MG/1ML VIAL PRES.FREE (J1100 PER 1MG) As Ordered ONE; +diazePAM 5MG TABLET As Ordered ONE; +diphenhydrAMINE 25MG CAP As Ordered ONE; +oxyCODONE 5MG TAB As Ordered ONE
== END ==
LOC: M PAIN 09:30
PROVIDERS: ATTEND Anesthesiology
DX: M51.16 Intervertebral disc disorders with radiculopathy, lumbar region (principal); M51.17 Intervertebral disc disorders with radiculopathy, lumbosacral region; G43.909 Migraine, unspecified, not intractable, without status migrainosus; N39.3 Stress incontinence (female) (male); F41.9 Anxiety disorder, unspecified; R10.13 Epigastric pain; K75.81 Nonalcoholic steatohepatitis (NASH); G56.03 Carpal tunnel syndrome, bilateral upper limbs; I10 Essential (primary) hypertension; Z87.891 Personal history of nicotine dependence; Z79.891 Long term (current) use of opiate analgesic; Z79.899 Other long term (current) drug therapy; Z88.8 Allergy status to other drugs, medicaments and biological substances; Z91.048 Other nonmedicinal substance allergy status; J30.1 Allergic rhinitis due to pollen
CPT/HCPCS: 64483; 64484; J1100; Q9967

== ENCOUNTER → 2021-12-18 | Outpatient (CLI) | payer OTHER ==
[~2021-12-18] MED LIST changes: -BUPIVACAINE HCL 0.25% 30ML VIAL As Ordered ONE; -ISOVUE-M 300 61% 15ML VIAL As Ordered ONE; -LIDOCAINE 1% SDV 30ML VIAL As Ordered ONE; -dexameTHASONE 10MG/1ML VIAL PRES.FREE (J1100 PER 1MG) As Ordered ONE; -diazePAM 5MG TABLET As Ordered ONE; -diphenhydrAMINE 25MG CAP As Ordered ONE; -oxyCODONE 5MG TAB As Ordered ONE
== END ==
LOC: M PAIN 15:15
PROVIDERS: ATTEND Anesthesiology
DX: M51.16 Intervertebral disc disorders with radiculopathy, lumbar region (principal); G43.909 Migraine, unspecified, not intractable, without status migrainosus; N39.3 Stress incontinence (female) (male); F41.9 Anxiety disorder, unspecified; R10.13 Epigastric pain; K75.81 Nonalcoholic steatohepatitis (NASH); I10 Essential (primary) hypertension; J30.1 Allergic rhinitis due to pollen; M76.891 Other specified enthesopathies of right lower limb, excluding foot; M76.892 Other specified enthesopathies of left lower limb, excluding foot; Z87.891 Personal history of nicotine dependence; Z79.891 Long term (current) use of opiate analgesic; Z79.899 Other long term (current) drug therapy; Z88.8 Allergy status to other drugs, medicaments and biological substances; Z91.048 Other nonmedicinal substance allergy status

== ENCOUNTER → 2022-01-17 | Outpatient (CLI) | payer OTHER ==
[2022-01-17 11:59] LABS: BASO % 0.5 % (0.0-1.0); EOS # 0.1 10^3/uL (0.0-0.5); EOS % 2.5 % (0.0-3.0); HEMATOCRIT 32.3 % (36.0-47.0); HEMOGLOBIN 9.6 g/dl (12.0-15.5); LYMPH # 1.9 10^3/uL (1.5-5.0); LYMPH % 33.1 % (24.0-44.0); MEAN CORPUSCULAR HEMOGLOBIN 21.6 pg (27.0-33.0); MEAN CORPUSCULAR HGB CONC 29.7 g/dl (32.0-36.5); MEAN CORPUSCULAR VOLUME 72.7 fl (80.0-96.0); MONO # 0.4 10^3/uL (0.0-0.8); MONO % 7.5 % (2.0-8.0); NEUTROPHILS # 3.2 10^3/uL (1.5-8.5); PLATELET COUNT, AUTOMATED 313 10^3/uL (150-450); RED BLOOD COUNT 4.44 10^6/uL (4.00-5.40); WHITE BLOOD COUNT 5.6 10^3/uL (4.0-10.0)
[2022-01-17 12:52] LABS: ALBUMIN 3.7 GM/DL (3.2-5.2); ALT/SGPT 48 U/L (12-78); BILIRUBIN,TOTAL 0.4 MG/DL (0.2-1.0); BLOOD UREA NITROGEN 15 MG/DL (7-18); CALCIUM LEVEL 9.4 MG/DL (8.5-10.1); CARBON DIOXIDE LEVEL 28 MEQ/L (21-32); CHLORIDE LEVEL 102 MEQ/L (98-107); CHOLESTEROL LEVEL 172 MG/DL (<200); CHOLESTEROL RISK RATIO 4.914 (<5); CREATININE FOR GFR 0.94 MG/DL (0.55-1.30); GLOMERULAR FILTRATION RATE > 60.0 (>58); GLUCOSE, FASTING 80 MG/DL (70-100); HDL CHOLESTEROL 35 MG/DL (>40); LDL CHOLESTEROL 94 MG/DL (<100); NON-HDL-C 137 MG/DL; POTASSIUM SERUM 3.8 MEQ/L (3.5-5.1); SODIUM LEVEL 136 MEQ/L (136-145); THYROID STIMULATING HORMONE 0.909 uIU/ML (0.358-3.740); TOTAL PROTEIN 7.7 GM/DL (6.4-8.2); TRIGLYCERIDES LEVEL 216 MG/DL (<150)
== END ==
LOC: M PLALAB 07:51
PROVIDERS: ATTEND Physician Assistant
DX: I10 Essential (primary) hypertension (principal)

== ENCOUNTER → 2022-02-27 | Outpatient (CLI) | payer OTHER ==
[2022-02-27 13:23] LABS: BASO % 0.8 % (0.0-1.0); EOS # 0.1 10^3/uL (0.0-0.5); EOS % 2.1 % (0.0-3.0); HEMATOCRIT 34.7 % (36.0-47.0); HEMOGLOBIN 10.3 g/dl (12.0-15.5); LYMPH # 1.8 10^3/uL (1.5-5.0); LYMPH % 35.7 % (24.0-44.0); MEAN CORPUSCULAR HEMOGLOBIN 21.3 pg (27.0-33.0); MEAN CORPUSCULAR HGB CONC 29.7 g/dl (32.0-36.5); MEAN CORPUSCULAR VOLUME 71.7 fl (80.0-96.0); MONO # 0.4 10^3/uL (0.0-0.8); MONO % 8.3 % (2.0-8.0); NEUTROPHILS # 2.7 10^3/uL (1.5-8.5); NEUTROPHILS % 52.9 % (36.0-66.0); PLATELET COUNT, AUTOMATED 361 10^3/uL (150-450); RED BLOOD COUNT 4.84 10^6/uL (4.00-5.40); WHITE BLOOD COUNT 5.2 10^3/uL (4.0-10.0)
[2022-02-27 13:34] LABS: PERCENT SATURATION 6.1 % (13.2-45.0)
== END ==
LOC: M PLALAB 10:27
PROVIDERS: ATTEND Physician Assistant
DX: D64.9 Anemia, unspecified (principal)

== ENCOUNTER → 2022-03-05 | Outpatient (CLI) | payer OTHER | LOC: M SOG 13:51 | PROVIDERS: ATTEND Orthopaedic Surgery | DX: M54.50 Low back pain, unspecified (principal) ==

== ENCOUNTER → 2022-05-02 | Outpatient (CLI) | payer OTHER | LOC: M PAIN 10:00 | PROVIDERS: ATTEND Anesthesiology | DX: M51.16 Intervertebral disc disorders with radiculopathy, lumbar region (principal); Z79.891 Long term (current) use of opiate analgesic; G43.909 Migraine, unspecified, not intractable, without status migrainosus; N39.3 Stress incontinence (female) (male); F41.9 Anxiety disorder, unspecified; R10.13 Epigastric pain; K75.81 Nonalcoholic steatohepatitis (NASH); I10 Essential (primary) hypertension; F52.0 Hypoactive sexual desire disorder; J30.1 Allergic rhinitis due to pollen; M76.891 Other specified enthesopathies of right lower limb, excluding foot; M76.892 Other specified enthesopathies of left lower limb, excluding foot; Z87.891 Personal history of nicotine dependence; Z79.899 Other long term (current) drug therapy; Z88.8 Allergy status to other drugs, medicaments and biological substances; Z91.048 Other nonmedicinal substance allergy status ==

== ENCOUNTER → 2022-05-11 | Outpatient (CLI) | payer OTHER ==
[2022-05-11 10:22] LABS: BASO % 0.6 % (0.0-1.0); EOS # 0.2 10^3/uL (0.0-0.5); EOS % 2.2 % (0.0-3.0); HEMATOCRIT 38.2 % (36.0-47.0); HEMOGLOBIN 11.6 g/dl (12.0-15.5); LYMPH # 1.9 10^3/uL (1.5-5.0); LYMPH % 26.8 % (24.0-44.0); MEAN CORPUSCULAR HEMOGLOBIN 23.5 pg (27.0-33.0); MEAN CORPUSCULAR HGB CONC 30.4 g/dl (32.0-36.5); MEAN CORPUSCULAR VOLUME 77.5 fl (80.0-96.0); MONO # 0.4 10^3/uL (0.0-0.8); MONO % 5.6 % (2.0-8.0); NEUTROPHILS # 4.5 10^3/uL (1.5-8.5); NEUTROPHILS % 64.5 % (36.0-66.0); PLATELET COUNT, AUTOMATED 282 10^3/uL (150-450); RED BLOOD COUNT 4.93 10^6/uL (4.00-5.40); WHITE BLOOD COUNT 6.9 10^3/uL (4.0-10.0)
[2022-05-11 11:14] LABS: PERCENT SATURATION 62.5 % (13.2-45.0)
== END ==
LOC: M PLALAB 08:06
PROVIDERS: ATTEND Physician Assistant
DX: D64.9 Anemia, unspecified (principal)

== ENCOUNTER → 2022-07-18 | Outpatient (CLI) | payer BC ==
[2022-07-18 10:44] LABS: BASO % 0.7 % (0.0-1.0); EOS # 0.2 10^3/uL (0.0-0.5); EOS % 2.5 % (0.0-3.0); HEMATOCRIT 37.9 % (36.0-47.0); HEMOGLOBIN 12.1 g/dl (12.0-15.5); LYMPH # 2.1 10^3/uL (1.5-5.0); LYMPH % 34.4 % (24.0-44.0); MEAN CORPUSCULAR HEMOGLOBIN 25.4 pg (27.0-33.0); MEAN CORPUSCULAR HGB CONC 31.9 g/dl (32.0-36.5); MEAN CORPUSCULAR VOLUME 79.6 fl (80.0-96.0); MONO # 0.3 10^3/uL (0.0-0.8); MONO % 5.5 % (2.0-8.0); NEUTROPHILS # 3.4 10^3/uL (1.5-8.5); NEUTROPHILS % 56.7 % (36.0-66.0); PLATELET COUNT, AUTOMATED 296 10^3/uL (150-450); RED BLOOD COUNT 4.76 10^6/uL (4.00-5.40)
[2022-07-18 11:06] LABS: IRON (FE) 57 UG/DL (50-170); PERCENT SATURATION 14.7 % (13.2-45.0); TOTAL IRON BINDING CAPACITY 387 UG/DL (250-425)
[2022-07-18 11:07] LABS: ALBUMIN 3.9 G/DL (3.2-5.2); ALKALINE PHOSPHATASE 91 U/L (46-116); ALT/SGPT 44 U/L (7.0-40); AST/SGOT 30 U/L (<34); BILIRUBIN,TOTAL 0.4 MG/DL (0.3-1.2); BLOOD UREA NITROGEN 13 MG/DL (9-23); CALCIUM LEVEL 9.2 MG/DL (8.5-10.1); CARBON DIOXIDE LEVEL 29 MMOL/L (20-31); CHLORIDE LEVEL 100 MMOL/L (98-107); CREATININE FOR GFR 0.81 MG/DL (0.55-1.30); GLOMERULAR FILTRATION RATE > 60.0 (>58); GLUCOSE, FASTING 81 MG/DL (60-100); POTASSIUM SERUM 3.3 MMOL/L (3.5-5.1); SODIUM LEVEL 137 MMOL/L (136-145); TOTAL PROTEIN 7.6 G/DL (5.7-8.2)
== END ==
LOC: M PLALAB 09:06
PROVIDERS: ATTEND Physician Assistant
DX: D64.9 Anemia, unspecified (principal)

== ENCOUNTER → 2022-07-25 | Outpatient (CLI) | payer BC, OTHER | LOC: M PAIN 08:45 | PROVIDERS: ATTEND Anesthesiology | DX: M51.16 Intervertebral disc disorders with radiculopathy, lumbar region (principal); G43.909 Migraine, unspecified, not intractable, without status migrainosus; F41.9 Anxiety disorder, unspecified; R10.13 Epigastric pain; K75.81 Nonalcoholic steatohepatitis (NASH); G56.03 Carpal tunnel syndrome, bilateral upper limbs; I10 Essential (primary) hypertension; N39.3 Stress incontinence (female) (male); J30.1 Allergic rhinitis due to pollen; Z79.891 Long term (current) use of opiate analgesic; Z87.891 Personal history of nicotine dependence; Z79.899 Other long term (current) drug therapy; Z88.8 Allergy status to other drugs, medicaments and biological substances; Z91.048 Other nonmedicinal substance allergy status ==

== ENCOUNTER → 2022-10-02 | Outpatient (CLI) | payer BC, OTHER ==
[~2022-10-02] MED LIST changes: +COLA100C5 PO; +IRON15CH PO
== END ==
LOC: M PAIN 07:45
PROVIDERS: ATTEND Anesthesiology
DX: M51.16 Intervertebral disc disorders with radiculopathy, lumbar region (principal); G43.909 Migraine, unspecified, not intractable, without status migrainosus; F41.9 Anxiety disorder, unspecified; F43.10 Post-traumatic stress disorder, unspecified; K76.0 Fatty (change of) liver, not elsewhere classified; I10 Essential (primary) hypertension; Z87.891 Personal history of nicotine dependence; Z79.891 Long term (current) use of opiate analgesic; Z79.899 Other long term (current) drug therapy; Z88.8 Allergy status to other drugs, medicaments and biological substances; Z91.048 Other nonmedicinal substance allergy status; J30.1 Allergic rhinitis due to pollen

== ENCOUNTER 2022-10-22 09:55 | Day surgery (SDC) | payer BC ==
[~2022-10-22] VITALS: Ht 170.2 cm; Wt 91.5 kg
[~2022-10-22 09:55] MED LIST changes: +ceFAZolin SOD 2 GM in IV 1 EA IV ONE
[2022-10-22] MEDS ORDERED: LR 1,000 ML IV SCH ×2 (11:00→18:20)
[2022-10-22] MEDS ORDERED: propofoL 200 MG/20 ML VIAL As Ordered ONE ×2 (12:32→17:48)
[2022-10-22] MEDS ORDERED: MIDAZOLAM INJ 2MG/2ML VIAL As Ordered ONE ×2 (12:32→15:20)
[2022-10-22] MEDS ORDERED: fentaNYL 100 MCG/2 ML INJECTION As Ordered ONE ×4 (12:33→16:35)
[2022-10-22] MEDS ORDERED: THROMBIN 20,000 UNITS KIT As Ordered ONE (12:33)
[2022-10-22] MEDS ORDERED: BACITRACIN OINTMENT 30GM TUBE As Ordered ONE (12:33)
[2022-10-22] MEDS ORDERED: LIDOCAINE W/EPINEPHRINE 1% 20ML VIAL As Ordered ONE ×2 (12:33→13:57)
[2022-10-22] MEDS ORDERED: dexmedeTOMIDine (4MCG/ML)200MCG/50ML BTL (PRECEDEX) As Ordered ONE (13:08)
[2022-10-22] MEDS ORDERED: propofoL 500 MG/50 ML VIAL As Ordered ONE ×2 (13:59→16:43)
[2022-10-22] MEDS ORDERED: ACETAMINOPHEN 1000MG 100ML IV BAG As Ordered ONE (16:11)
[2022-10-22] MEDS ORDERED: GENTAMICIN SULF 80MG/2ML VIAL As Ordered ONE (16:26)
[2022-10-22] MEDS ORDERED: ceFAZolin 2 GM/D5W 50 ML IV BAG As Ordered ONE (16:48)
[2022-10-22] MEDS ORDERED: ONDANSETRON 4MG 2ML VIAL As Ordered ONE (16:55)
[2022-10-22] MEDS ORDERED: METOCLOPRAMIDE INJ 10MG/2ML VIAL As Ordered ONE (17:18)
[2022-10-22] MEDS ORDERED: HYDROmorphone HCL 2MG/ML 1ML VIAL As Ordered ONE (18:05)
[2022-10-22] MEDS ORDERED: MORPHINE 2 MG/ML 1ML VIAL IV PRN (18:20)
[2022-10-22] MEDS ORDERED: oxyCODONE 5MG TAB PO PRN (18:20)
[2022-10-22] MEDS ORDERED: ONDANSETRON 4MG 2ML VIAL IV PRN (18:20)
[2022-10-22] MEDS ORDERED: fentaNYL 100 MCG/2 ML INJECTION IV PRN (18:20)
[2022-10-22 20:00] VITALS: BP 136/90; TEMP 97; O2SAT 99
[2022-10-22 20:45] VITALS: BP 116/64; TEMP 97.6; O2SAT 99
[2022-10-22 21:45] VITALS: BP 127/75; TEMP 97.3; O2SAT 100
[2022-10-22] MEDS: NORCO, ANEXSIA 5/325MG TABLET (HYDROcodone/ACETAMINOPHEN) PO PRN (22:03)
[2022-10-22] MEDS ORDERED: ceFAZolin 1GM VIAL As Ordered ONE (22:08)
[2022-10-22] MEDS ORDERED: DOCUSATE SODIUM 100MG CAPSULE PO PRN (22:30)
[2022-10-22 22:45] VITALS: BP 113/67; TEMP 98.5; O2SAT 98
[2022-10-22] MEDS ORDERED: ceFAZolin SOD 1 GM in D5W MINI-BAG PLUS 50 ML IV ONE (23:00)
[2022-10-22] MEDS ORDERED: ceFAZolin SOD 1 GM in D5W MINI-BAG PLUS 50 ML IV SCH (23:00)
[2022-10-22 23:37] VITALS: BP 106/56; TEMP 98; O2SAT 97
[2022-10-23 00:44] VITALS: BP 110/59; TEMP 97.8; O2SAT 98
[2022-10-23] MEDS ORDERED: HOME MED LIST COMPLETE! XX SCH (02:05)
[2022-10-23 04:35] VITALS: BP 119/70; TEMP 97.1; O2SAT 100
[2022-10-23] MEDS ORDERED: NORCO, ANEXSIA 5/325MG TABLET (HYDROcodone/ACETAMINOPHEN) As Ordered ONE (04:40)
[2022-10-23] MEDS: NORCO, ANEXSIA 5/325MG TABLET (HYDROcodone/ACETAMINOPHEN) PO PRN (04:58)
[2022-10-23] MEDS ORDERED: ceFAZolin 1GM VIAL As Ordered ONE (05:03)
[2022-10-23] MEDS ORDERED: ceFAZolin SOD 1 GM in D5W MINI-BAG PLUS 50 ML IV ONE (06:00)
[2022-10-23 08:00] VITALS: BP 127/78; TEMP 97.2; O2SAT 99
[2022-10-23 08:25] VITALS: BP 135/78
[2022-10-23] MEDS ORDERED: hydroCHLOROthiazide 12.5 MG CAPSULE PO SCH (09:00)
[2022-10-23] MEDS ORDERED: LOSARTAN 25 MG TAB PO SCH (09:00)
[2022-10-23] MEDS ORDERED: PANTOPRAZOLE 20 MG TAB PO SCH (09:00)
== END 2022-10-23 09:47 | disposition home or self-care (01) ==
LOC: M SDC 09:55 → M 4MAIN 21:29 → M SDC 10-23 09:47
PROVIDERS: ATTEND Anesthesiology
DX: M51.16 Intervertebral disc disorders with radiculopathy, lumbar region (principal); I10 Essential (primary) hypertension; K76.0 Fatty (change of) liver, not elsewhere classified; F41.9 Anxiety disorder, unspecified; G43.909 Migraine, unspecified, not intractable, without status migrainosus; Z79.899 Other long term (current) drug therapy; Z87.891 Personal history of nicotine dependence; Z88.8 Allergy status to other drugs, medicaments and biological substances; Z91.048 Other nonmedicinal substance allergy status
CPT/HCPCS: 63650; 63685; 87635; 96365; 96376; C1778; C1820; J0131; J0690; J1170; J1580; J2250; J2405; J2765; J3010; L9900; S0020

== ENCOUNTER → 2022-10-29 | Outpatient (CLI) | payer BC ==
[~2022-10-29] MED LIST changes: -ceFAZolin SOD 2 GM in IV 1 EA IV ONE
== END ==
LOC: M PAIN 08:00
PROVIDERS: ATTEND Anesthesiology
DX: M51.16 Intervertebral disc disorders with radiculopathy, lumbar region (principal); I10 Essential (primary) hypertension; G43.909 Migraine, unspecified, not intractable, without status migrainosus; F41.9 Anxiety disorder, unspecified; K75.81 Nonalcoholic steatohepatitis (NASH); Z87.891 Personal history of nicotine dependence; Z79.891 Long term (current) use of opiate analgesic; Z79.899 Other long term (current) drug therapy; Z88.8 Allergy status to other drugs, medicaments and biological substances; J30.1 Allergic rhinitis due to pollen

== ENCOUNTER → 2022-11-14 | Outpatient (CLI) | payer BC | LOC: M PAIN 12:00 | PROVIDERS: ATTEND Anesthesiology | DX: M51.16 Intervertebral disc disorders with radiculopathy, lumbar region (principal); G43.909 Migraine, unspecified, not intractable, without status migrainosus; I10 Essential (primary) hypertension; Z96.89 Presence of other specified functional implants; Z86.59 Personal history of other mental and behavioral disorders; Z87.891 Personal history of nicotine dependence; Z88.8 Allergy status to other drugs, medicaments and biological substances; Z79.899 Other long term (current) drug therapy | CPT/HCPCS: 77003; G0463 ==

== ENCOUNTER → 2023-03-20 | Outpatient (CLI) | payer BC | LOC: M PAIN 08:15 | PROVIDERS: ATTEND Anesthesiology | DX: M51.16 Intervertebral disc disorders with radiculopathy, lumbar region (principal); G89.29 Other chronic pain; G43.909 Migraine, unspecified, not intractable, without status migrainosus; I10 Essential (primary) hypertension; Z96.89 Presence of other specified functional implants; Z86.59 Personal history of other mental and behavioral disorders; Z87.891 Personal history of nicotine dependence; Z88.8 Allergy status to other drugs, medicaments and biological substances; Z79.899 Other long term (current) drug therapy ==

== ENCOUNTER → 2023-08-07 | Outpatient (CLI) | payer OTHER | LOC: M PAIN 09:00 | PROVIDERS: ATTEND Anesthesiology | DX: M51.16 Intervertebral disc disorders with radiculopathy, lumbar region (principal); G89.29 Other chronic pain; G43.909 Migraine, unspecified, not intractable, without status migrainosus; F41.9 Anxiety disorder, unspecified; K75.81 Nonalcoholic steatohepatitis (NASH); I10 Essential (primary) hypertension; Z87.891 Personal history of nicotine dependence; Z79.891 Long term (current) use of opiate analgesic; Z79.899 Other long term (current) drug therapy; Z88.8 Allergy status to other drugs, medicaments and biological substances; Z91.048 Other nonmedicinal substance allergy status ==

== ENCOUNTER → 2023-10-02 | Outpatient (CLI) | payer OTHER | LOC: M PAIN 15:30 | PROVIDERS: ATTEND Anesthesiology | DX: M51.16 Intervertebral disc disorders with radiculopathy, lumbar region (principal); G89.29 Other chronic pain; I10 Essential (primary) hypertension; Z87.891 Personal history of nicotine dependence; Z79.899 Other long term (current) drug therapy; Z88.8 Allergy status to other drugs, medicaments and biological substances; Z91.048 Other nonmedicinal substance allergy status ==

== ENCOUNTER → 2023-11-13 | Outpatient (CLI) | payer OTHER ==
[~2023-11-13] MED LIST changes: +FLUO-290 PO; -FLUO10CA18 PO
== END ==
LOC: M PAIN 11:00
PROVIDERS: ATTEND Anesthesiology
DX: M51.16 Intervertebral disc disorders with radiculopathy, lumbar region (principal); Z79.891 Long term (current) use of opiate analgesic; M79.10 Myalgia, unspecified site; M79.18 Myalgia, other site; Z87.891 Personal history of nicotine dependence; Z79.899 Other long term (current) drug therapy; Z88.8 Allergy status to other drugs, medicaments and biological substances; Z91.048 Other nonmedicinal substance allergy status

== ENCOUNTER → 2023-12-27 | Outpatient (CLI) | payer OTHER ==
[~2023-12-27] MED LIST changes: +TRIAMCINOLONE ACETONIDE SUSP 40MG/ML 1ML VIAL As Ordered ONE
== END ==
LOC: M PAIN 14:30
PROVIDERS: ATTEND Anesthesiology
DX: M79.18 Myalgia, other site (principal); G89.29 Other chronic pain; G43.909 Migraine, unspecified, not intractable, without status migrainosus; F41.9 Anxiety disorder, unspecified; K75.81 Nonalcoholic steatohepatitis (NASH); M51.16 Intervertebral disc disorders with radiculopathy, lumbar region; I10 Essential (primary) hypertension; Z87.891 Personal history of nicotine dependence; Z79.891 Long term (current) use of opiate analgesic; Z79.899 Other long term (current) drug therapy; Z88.8 Allergy status to other drugs, medicaments and biological substances; Z91.048 Other nonmedicinal substance allergy status
CPT/HCPCS: 20552; 77002; J0665; J3301

== ENCOUNTER → 2024-01-02 | Outpatient (REF) | payer OTHER ==
[~2024-01-02] MED LIST changes: -TRIAMCINOLONE ACETONIDE SUSP 40MG/ML 1ML VIAL As Ordered ONE
[2024-01-02 18:32] LABS: FERRITIN 2.3 NG/ML (7.3-270.7); PERCENT SATURATION 4.1 % (13.2-45.0)
[2024-01-02 18:33] LABS: IMMUNOGLOBULIN A 276.5 MG/DL (40-350)
== END ==
LOC: M LAB REF 16:54
PROVIDERS: ATTEND Internal Medicine
DX: D50.9 Iron deficiency anemia, unspecified (principal); R10.13 Epigastric pain

== ENCOUNTER → 2024-02-05 | Outpatient (CLI) | payer OTHER | LOC: M WHC 09:49 | PROVIDERS: ATTEND Internal Medicine | DX: Z12.39 Encounter for other screening for malignant neoplasm of breast (principal); R92.343 Mammographic extreme density, bilateral breasts ==

== ENCOUNTER → 2024-02-12 | Outpatient (CLI) | payer OTHER | LOC: M PAIN 15:00 | PROVIDERS: ATTEND Anesthesiology | DX: M79.18 Myalgia, other site (principal); M79.10 Myalgia, unspecified site; M54.50 Low back pain, unspecified; M47.816 Spondylosis without myelopathy or radiculopathy, lumbar region; G43.909 Migraine, unspecified, not intractable, without status migrainosus; F41.9 Anxiety disorder, unspecified; K75.81 Nonalcoholic steatohepatitis (NASH); I10 Essential (primary) hypertension; N39.3 Stress incontinence (female) (male); M76.9 Unspecified enthesopathy, lower limb, excluding foot; Z87.891 Personal history of nicotine dependence; Z79.891 Long term (current) use of opiate analgesic; Z79.899 Other long term (current) drug therapy; Z88.8 Allergy status to other drugs, medicaments and biological substances; Z91.048 Other nonmedicinal substance allergy status ==

== ENCOUNTER → 2024-02-19 | Outpatient (CLI) | payer OTHER ==
[~2024-02-19] MED LIST changes: +FERR32TA PO; +OMEP1CAP73 PO; +ZOLO25TA PO
== END ==
LOC: M WHC 07:41
PROVIDERS: ATTEND Internal Medicine
DX: R92.2 Inconclusive mammogram (principal)

== ENCOUNTER 2024-03-17 07:31 | Day surgery (SDC) | payer OTHER ==
[~2024-03-17] VITALS: Ht 168.9 cm; Wt 88.0 kg
[2024-03-17] MEDS: NS 1,000 ML IV ONE (08:00)
[2024-03-17] MEDS ORDERED: fentaNYL 100 MCG/2 ML INJECTION As Ordered ONE (08:04)
[2024-03-17] MEDS ORDERED: propofoL 200 MG/20 ML VIAL As Ordered ONE (08:05)
[2024-03-17] MEDS ORDERED: LIDOCAINE 2% 100MG/5ML SDV (FOR ANES.) As Ordered ONE (08:05)
[2024-03-17 08:46] VITALS: TEMP 98
[2024-03-17 08:58] VITALS: BP 132/68; O2SAT 98
== END 2024-03-17 09:04 | disposition home or self-care (01) ==
LOC: M OPP 07:31
PROVIDERS: ATTEND Surgery
DX: K31.89 Other diseases of stomach and duodenum (principal); K30 Functional dyspepsia; K29.70 Gastritis, unspecified, without bleeding; I10 Essential (primary) hypertension; Z79.891 Long term (current) use of opiate analgesic; Z79.899 Other long term (current) drug therapy; Z88.5 Allergy status to narcotic agent; Z91.048 Other nonmedicinal substance allergy status
CPT/HCPCS: 43239; 88305; J3010

== ENCOUNTER 2024-04-21 13:17 | Emergency (ER) | payer OTHER ==
[~2024-04-21] VITALS: Ht 167.6 cm; Wt 84.4 kg
[2024-04-21 13:20] VITALS: BP 160/99; TEMP 97.1; O2SAT 100
== END 2024-04-21 14:28 | disposition left against medical advice (07) ==
LOC: M ED 13:17
DX: Z53.21 Procedure and treatment not carried out due to patient leaving prior to being seen by health care provider (principal)

== ENCOUNTER 2024-10-09 07:44 | Day surgery (SDC) | payer OTHER ==
[~2024-10-09] VITALS: Ht 167.6 cm; Wt 80.6 kg
[2024-10-09] MEDS ORDERED: LIDOCAINE 2% 100MG/5ML SDV (FOR ANES.) As Ordered ONE (09:03)
[2024-10-09] MEDS ORDERED: propofoL 200 MG/20 ML VIAL As Ordered ONE (09:03)
[2024-10-09 09:29] VITALS: TEMP 97
[2024-10-09 09:48] VITALS: BP 130/60; O2SAT 100
== END 2024-10-09 09:50 | disposition home or self-care (01) ==
LOC: M OPP 07:44
PROVIDERS: ATTEND Surgery
DX: Z12.11 Encounter for screening for malignant neoplasm of colon (principal); Z88.8 Allergy status to other drugs, medicaments and biological substances; Z91.048 Other nonmedicinal substance allergy status; Z79.899 Other long term (current) drug therapy